=== PATIENT | female | born 1975 | race Caucasian/White ===

== ENCOUNTER → 2016-10-03 | Outpatient (CLI) | payer OTHER ==
[2016-08-08 14:17] VITALS: BP 132/68
[~2016-10-03] MED LIST: ALBU2.5V13 NEB; AMOX1TAB61 PO; ATOR20TA58 PO; Aspirin PO; BUDE10.2 IH; CYCL10TA2 PO; DIAZ5TAB PO; DILT120C97 PO; DILT180C2 PO; ESCI5TAB8 PO; FERR325T31 PO; FEXO180T5 PO; GABA800T2 PO; HYDR-971 PO; INSU100C4 SQ; INSU100V8 SQ; LIRA0.6P2 SQ; LISI-334 PO; LISI-338 PO; LISI10TA2 PO; NYST15CR TP; OMEP40CA5 PO; PROM25TA10 PO; SIMV40TA3 PO; ZOLP5TAB PO
[2016-10-03 14:50] LABS: BASO # 0.1 x10^3/uL (0.0-0.2); BASO % 1 % (0-3); EOS % 0 % (0-3); HEMATOCRIT 40.4 % (36.0-47.0); HEMOGLOBIN 12.6 g/dL (12.0-15.5); LYMPH # 2.1 x10^3/uL (1.0-4.8); LYMPH % 16 % (24-48); MEAN CORPUSCULAR HEMOGLOBIN 24 pg (25-35); MEAN CORPUSCULAR HGB CONC 31 g/dL (31-37); MEAN CORPUSCULAR VOLUME 78 fL (79-100); MONO % 4 % (0-9); NEUT % 79 % (31-73); PLATELET COUNT 317 x10^3/uL (140-400); RED BLOOD COUNT 5.17 x10^6/uL (3.50-5.40); RED CELL DISTRIBUTION WIDTH 23.4 % (11.5-14.5); WHITE BLOOD COUNT 13.3 x10^3/uL (4.0-11.0)
[2016-10-03 14:59] LABS: ALBUMIN 3.8 g/dL (3.4-5.0); ALBUMIN/GLOBULIN RATIO 0.9 (1.0-1.7); CALCIUM 9.2 mg/dL (8.5-10.1); CREATININE 0.6 mg/dL (0.6-1.0); GFR 109.1; POTASSIUM 3.5 mmol/L (3.5-5.1); TOTAL BILIRUBIN 0.4 mg/dL (0.2-1.0); TOTAL PROTEIN 8.1 g/dL (6.4-8.2)
[2016-10-03 15:13] LABS: PLT ESTIMATE ADEQUATE (ADEQUATE)
[2016-10-03 15:14] LABS: ANISOCYTOSIS MOD; OVALOCYTES OCC
--- NOTE | 2016-10-03 16:54 | RAD ---
Indication chest pain. PA and lateral views of the chest were obtained. Comparison is made to an examination 08/07/2016. There is unchanged cardiomegaly. There is no gross congestive heart failure. A focal infiltrate is not seen. Significant pleural fluid is not present and there is no pneumothorax. IMPRESSION: No acute finding apparent in the chest
[2016-10-03 16:56] LABS: BILIRUBIN,URINE NEGATIVE (NEG); GLUCOSE,URINE NEGATIVE (NEG)
[2016-10-03 16:57] LABS: NITRITE,URINE NEGATIVE (NEG); PROTEIN,URINE 30 mg/dL (NEG-TRACE)
[2016-10-03 16:58] LABS: BACTERIA,URINE MANY /HPF (0-FEW); RBC,URINE 0 /HPF (0-2); SQUAMOUS EPITHELIAL CELL,UR MANY /LPF
== END | disposition home or self-care (01) ==
LOC: SURGPAT 14:06
PROVIDERS: ATTEND Obstetrics & Gynecology
DX: I51.7 Cardiomegaly (principal)
CPT/HCPCS: 36415; 71020; 80053; 81001; 85007; 85027; 87086

== ENCOUNTER 2016-10-12 05:59 | Inpatient (IN) | payer OTHER ==
[2016-10-12] VITALS (11 sets, daily range): BP systolic 89–115; BP diastolic 51–63
[~2016-10-12] VITALS: Ht 160 cm; Wt 93.9 kg
[~2016-10-12 05:59] MED LIST changes: -ALBU2.5V13 NEB; +ALBU2.5V14 NEB
[2016-10-12] MEDS ORDERED: CEFOXITIN 1GM IVPB FOR OMNI 50 ML IV PRN (06:00)
[2016-10-12 06:31] LABS: NEG OBC UR NEG; POS OBC UR POS
[2016-10-12] MEDS ORDERED: LIDOCAINE 1% 1 ML SYRINGE. ID PRN (07:00)
[2016-10-12] MEDS ORDERED: PROCHLORPERAZINE 10 MG/2 ML VIAL. IV PRN (07:00)
[2016-10-12] MEDS ORDERED: FENTANYL PF 100 MCG/2 ML VIAL. IV PRN (07:00)
[2016-10-12] MEDS ORDERED: IV RINGERS,LACTATED 1000ML 1,000 ML IV SCH (07:00)
[2016-10-12] MEDS ORDERED: DEXAMETHASONE SOD PHOS 20 MG/5 ML VIAL. ONE (07:02)
[2016-10-12] MEDS ORDERED: PROPOFOL 20 ML IV ONE (07:02)
[2016-10-12] MEDS ORDERED: FAMOTIDINE 20 MG/2 ML VIAL ONE (07:02)
[2016-10-12] MEDS ORDERED: ONDANSETRON PF 4 MG/2 ML VIAL. ONE (07:02)
[2016-10-12] MEDS ORDERED: LIDOCAINE 2% 100 MG/5 ML DISP.SYRIN. ONE (07:02)
[2016-10-12] MEDS ORDERED: ROCURONIUM 50 MG/5 ML VIAL. ONE ×2 (07:03)
[2016-10-12] MEDS ORDERED: FENTANYL PF 100 MCG/2 ML VIAL. ONE ×2 (07:03→08:21)
[2016-10-12] MEDS ORDERED: BUPIVACAINE-EPI 0.25%-1:200000 50 ML VIAL. ONE (07:07)
[2016-10-12] MEDS ORDERED: METHYLENE BLUE 1% 1 ML VIAL. ONE (07:07)
[2016-10-12] MEDS ORDERED: ACETAMINOPHEN INTRAVENOUS 100 ML IV ONE (07:07)
[2016-10-12] MEDS ORDERED: ESTROGENS, CONJ VAGINAL CREAM 30GM TUBE. ONE (07:08)
[2016-10-12] MEDS ORDERED: PHENYLEPHRINE in 0.9% NACL PF 1 MG/10 ML DISP.SYRIN. IV ONE ×2 (07:54→08:58)
[2016-10-12] MEDS ORDERED: SEVOFLURANE > 120 MINUTES. IH ONE (08:10)
[2016-10-12] MEDS ORDERED: VECURONIUM BOLUS 10 MG VIAL. IV ONE (09:04)
[2016-10-12] MEDS ORDERED: 0.9 % SODIUM CHLORIDE 50 ML VIAL. IJ ONE (09:05)
[2016-10-12] MEDS ORDERED: MORPHINE SULFATE 10 MG/ML VIAL. ONE (09:08)
[2016-10-12] MEDS ORDERED: ALBUMIN HUMAN 5% 500 ML IV ONE (09:47)
[2016-10-12] MEDS ORDERED: NEOSTIGMINE METHYLSULFATE 5 MG/5 ML SYRINGE. ONE (10:36)
[2016-10-12] MEDS ORDERED: GLYCOPYRROLATE 1 MG/5 ML VIAL. ONE (10:36)
--- NOTE | 2016-10-12 11:10 | PDOC ---
BRIEF OPERATIVE NOTE Date: Oct 12, 2016 Pre-Op Diagnosis menorrhagia, dysmenorrhea, fibroids Post-Op Diagnosis same with severe pelvic adhesive disease Procedure Performed attempted LAVH/BSO, eventually convered to YESY/BSO and extensive adhesiolysis ( at least 90 min) Surgeon Dr. Karol varner Train Inspector Dr. Analilia Mars Anesthesiologist Dr. Villanueva Anesthesia Type: General Blood Loss 400cc IV Fluid 2L crystalloid, 500cc albumin Urine Output 380cc clear via crowley catheter Specimens Obtained cervix, uterus, bilateral tubes and ovaries Findings upon entry umbilical port inside omentum, entire anterior uterine wall and bladder adhesed firmly to anterior abdominal wall, normal bilateral tubes and ovaries Complications none Additional Remarks [id number] KAROL VARNER MD Oct 12, 2016 11:10
[2016-10-12] MEDS ORDERED: NON FORMULARY ITEM (Albuterol Sulfate (Albuterol Sulfate Conc Neb Soln) 2.5 MG) NEB PRN (11:15)
[2016-10-12] MEDS ORDERED: CALCIUM CARBONATE 500 MG TAB.CHEW PO PRN (11:15)
[2016-10-12] MEDS ORDERED: ONDANSETRON PF 4 MG/2 ML VIAL. IV PRN (11:15)
[2016-10-12] MEDS ORDERED: LACTULOSE 20 GM/30 ML SOLUTION. PO PRN (11:15)
[2016-10-12] MEDS ORDERED: MAGNESIUM HYDROXIDE 2,400 MG/30 ML ORAL.SUSP. PO PRN (11:15)
[2016-10-12] MEDS ORDERED: DIPHENHYDRAMINE HCL 25 MG CAPSULE PO PRN (11:15)
[2016-10-12] MEDS ORDERED: MAG HYDROX/ALUMINUM HYDROX/SMC 30 ML ORAL.SUSP PO PRN (11:15)
[2016-10-12] MEDS ORDERED: MORPHINE SULFATE 2 MG/ML DISP.SYRIN. IV PRN (11:15)
[2016-10-12] MEDS ORDERED: ZOLPIDEM 5 MG TABLET. PO PRN ×2 (11:15)
[2016-10-12] MEDS ORDERED: NALOXONE 0.4 MG/ML VIAL. IV PRN (11:15)
[2016-10-12] MEDS ORDERED: DIPHENHYDRAMINE 50 MG/ML VIAL IV PRN (11:15)
[2016-10-12] MEDS ORDERED: HYDROCODONE/APAP 5/325MG TABLET. PO PRN (11:15)
[2016-10-12] MEDS ORDERED: 0.9 % SODIUM CHLORIDE 10 ML DISP.SYRIN. IV PRN (11:15)
[2016-10-12] MEDS ORDERED: INSULIN ASPART 100 UNIT/ML 10ML VIAL. SQ ONE ×4 (11:22→12:45)
[2016-10-12] MEDS: FENTANYL PF 100 MCG/2 ML VIAL. IV PRN ×3 (11:33→12:48)
[2016-10-12] MEDS ORDERED: INSULIN ASPART 300 UNITS/3 ML INSULN.PEN SQ SCH ×2 (11:45→14:45)
[2016-10-12] MEDS ORDERED: INSULIN ASPART 300 UNITS/3 ML INSULN.PEN SQ ONE (11:45)
[2016-10-12] MEDS ORDERED: ALBUTEROL SULFATE 2.5 MG/3 ML NEBU. NEB PRN (11:45)
[2016-10-12] MEDS: HYDROMORPHONE 2 MG/ML VIAL. IV PRN ×4 (11:57→12:37)
[2016-10-12] MEDS: MORPHINE SULFATE 2 MG/ML DISP.SYRIN. IV PRN ×2 (12:02→12:15)
[2016-10-12] MEDS ORDERED: DEXTROSE 50% 25 GM / 50ML DISP.SYRIN. IV PRN (14:45)
[2016-10-12] MEDS: BUDESONIDE 0.5 MG/2 ML NEBU NEB SCH (14:50)
[2016-10-12] MEDS: ALBUTEROL SULFATE 2.5 MG/3 ML NEBU. NEB SCH ×2 (14:51→22:06)
--- NOTE | 2016-10-12 14:59 | OP ---
DATE OF SURGERY: 10/12/2016 PREOPERATIVE DIAGNOSES: Menorrhagia, dysmenorrhea, fibroids. POSTOPERATIVE DIAGNOSES: Menorrhagia, dysmenorrhea, fibroids with severe pelvic adhesive disease. PROCEDURE PERFORMED: An attempted laparoscopic-assisted vaginal hysterectomy with BSO that was eventually converted to a total abdominal hysterectomy with SBO and extensive adhesiolysis. Probably at least an hour and half, 90 minutes worth of adhesiolysis. The entire hyst took over two and half hours. SURGEONS: Matt Varner MD and Analilia Mars MD ANESTHESIOLOGIST: Lencho Sheikh MD ANESTHESIA: General. ESTIMATED BLOOD LOSS: 400 mL. INTRAVENOUS FLUIDS: She was given 2 liters of crystalloid and then 500 mL of albumin. URINE OUTPUT: 380 mL clear via Russell catheter. SPECIMEN OBTAINED: Cervix, uterus, bilateral tubes and ovaries. FINDINGS: Upon entry, could tell the umbilical port was in omentum, was able to get around it and put another ports to see that it was clear of any bowel and the anterior uterus and bladder were stuck to the anterior abdominal wall. The upper quadrants were clear. The right lower, left quadrants were clear. All the adhesions were midline with umbilical all the way up to the umbilicus. They were omental layer and then the uterus and bladder firmly adhesed to the anterior abdominal wall. Otherwise, she had an 8-10 cm uterus, mildly enlarged, that wanted to hang retroverted, but it was absolutely stuck to the anterior abdominal wall and dipping into the pelvis, but she had normal bilateral tubes and ovaries. There were no complications. DESCRIPTION OF PROCEDURE: This patient was taken to the operating room where general anesthesia was placed. The patient was placed in dorsal lithotomy position in [facility]. The patient's abdomen and vagina were prepped and draped in the normal sterile fashion. A bivalve speculum was placed in the patient's vagina. A single tooth tenaculum was used to grasp the anterior lip of the cervix. Approximately 10 mL of 0.25% Marcaine with epinephrine was used to circumferentially inject around the cervix. This was for both hemodissection and hemostatic purposes later. The [employer] uterine manipulator was placed through the endocervical os, locked on the single tooth tenaculum and the bivalve speculum was then removed. Top gloves were discarded and changed. Attention was turned to the abdomen. After prepping and draping her, the catheter had been inserted. We did all of that. Now gloves were discarded and changed. Attention was turned to the abdomen where a small infraumbilical skin incision had been made. Her only previous surgery had been a section with a low Pfannenstiel skin incision. So I went inside the umbilical fold, made a small incision, used the curved Esperanza to dissect through the subcuticular layer to the fascia. The 5-mm Visiport was used to directly enter the abdominal cavity. Opening patient pressure was 5 mmHg and direct abdominal placement was confirmed via the laparoscope. However, I could tell that there was omentum around me. I was able to get around this and see the right and left lower quadrant ports and was able to get 5-mm Ethicon disposable atraumatic port in both sides and then put the port out there to look at the midline and look for the port. It did appear to be all omental adhesions, but there was pretty done omental adhesions in the midline around the umbilicus encasing the entire port and then going all the way down. I was able to take them down because we were in both sides and seeing it. We actually put a left upper quadrant port in and it was clear and moved the camera up there, so the camera was not in adhesions, where we could get above the adhesions and take down the omental adhesions from the umbilicus down. However, once we did reach the uterus and find the uterus, it was then densely adhesed to the anterior abdominal wall, even though it was retroverted and dipping posteriorly was tagged up and falling backwards into the posterior cul-de-sac. There was no good plane at all, I mean we could not get around to the bladder. We did go ahead and start because we could see the round ligament, so I started on the left side, cauterizing and cutting once we got down to the uterus and had taken down the omental adhesions. We started on the left side, cauterizing and cutting the round ligament, going down and then elevating the left tube and ovary, finding the ureter coursing very low, staying high on the IP ligament with the LigaSure Advance, cauterizing and cutting it, getting down past the round ligament and then getting down to the level of the uterines. I still could not get the bladder flap created anteriorly, but posteriorly, you could see the cervix and you could see it clear and we stayed very posterior and we were able to skeletonize and obtain the uterines on the left. We did exactly the same thing on the right side, first obtaining the round ligaments, cauterizing and cutting with the LigaSure Advance, again, not being able to go anteriorly very well, then elevating the right tube and ovary, again finding the ureter coursing low, staying high on the IP ligament, cauterizing and cutting it as well, taking the tubes and ovaries per patient's request and again going posteriorly and skeletonized and finding the uterines and obtaining those. The uterus did start blanching and the uterus did start freeing up as we obtained the blood supply. We did try extensively to try to create this bladder flap, though we could not peel it off. It was very thick, we could not get a plane at all. So we decided at this point, once we went posteriorly and tried to stay and had the uterus through the cardinal and broads down to the uterosacrals, we were able to go posterior a little bit and see that area staying away from the bladder, but posterior. Once we did that and the uterus was free posteriorly and it blanched and we have the blood supply from above, we decided to try to go vaginally to see if we could get in and may be push it off that way. However, with all the redundant vagina and a very high cervix and the uterus was not mobile, unable to be pulled down, it was very, very, very difficult to even see or do this, so it was just decided to go ahead and convert to an open abdominal procedure. So she was covered and laid supine. She was taken out of her stirrups, a safety blet was put on, new drapes were placed on the bottom part, all gloves were discarded and changed and the instruments tray was recounted for the open abdominal tray, so this took a little bit and then a Pfannenstiel skin incision was made with the scalpel over the previous scars. Starting abdominally now, a Pfannenstiel skin incision was made over the previous existing scar. Bovie cautery was used in the subcutaneous for hemostasis. The fascia was scored in the midline and extended sharply and bluntly bilaterally with the curved Valdovinos scissors. Evelin clamps x 2 were placed on the superior fascial edge and the rectus muscles were dissected from the fascia sharply and bluntly. This was done inferiorly as well. Very thick adhesions inferiorly down towards the pubic bone as well. We were in anteriorly, we stretched, placed in slight Trendelenburg and packed 3 moist laps and a blue moist sponge. We did place the O'Hever-O'Valiente retractor in, within upper blade and side blade, we did not place the lower blade. The uterus was able to be grasped, then pulled out, again most of it was free, most of it had been done laparoscopically and Pean's were placed at the cornua both bilaterally and pulled up. We were able to take a couple more bite posteriorly and get down to the uterosacrals and tagged these with 0 Vicryl. We put curved Hugo clamps x 2, cut with Valdovinos scissors and suture ligated x 2. We did this on both sides for a couple bites until we were in. We could feel a plane and you could see the cervix completely delineated even from posterior around the anterior. The bladder was not stuck to the cervix. There were just thick, likely omental adhesions, but we wanted to be sure that the bladder was not in there as there was so much adipose tissue, it was difficult to see the bladder and feel the Russell bulb at this point. So we went around the anterior cervix that we could see and kind of dissected up bluntly, like we would if we were pushing from the bottom and we were able to get a plane there as well, but we were able to get in and we used the Vishal's to amputate the scissors and long Evelin's were placed on the anterior and posterior lips of the vaginal mucosa. Once it was out, we were able to peel down the adhesions and cut them down under direct visualization and amputate the rest of the cervix, the uterus, bilateral tubes and ovary and passed it off for permanent pathology, but it was stuck very, very densely to the fat peritoneum from the anterior abdominal wall still there, so we were able to get this off under direct visualization and making sure that the bladder was clear. The urine stayed clear the entire time. There was no seepage of urine. There was no blood in the urine. We just wanted to be very careful with these dense adhesions. A series of 0 Vicryl stitches were placed interrupted, first getting the corners and coming out to the uterosacral ligaments, tagging those and then a series of interrupted [id number], 3 or 4 stitches of 0 Vicryl were placed to close the vaginal cuff. Once this was done, these were left tagged. Irrigation was done to make sure it was clear. The posterior peritoneum was pulled up and tagged to the vaginal cuff, it looked good. They did have to seal out, so we did go ahead and spray it over the cuff since it was out for the laparoscopic hyst already anyway, after irrigating and it looked good. All the sutures were trimmed. The O'Hever-O'Valiente retractor was removed and all 3 moist laps and the blue sponge were removed. All counts were correct x 2 by OR personnel prior to closing. We did look at the cuff again, it was hemostatic. So at this point, the fascia was closed from left to midline, right to midline and tied together with #0 Vicryl on a CT1. It was used to close the fascia. The rectus muscles were clear before doing all this, everything was hemostatic, everything looked good. Irrigation again had been done intraabdominally before spraying Tisseel and it looked good and a second look even after removing everything and looking at the cuff, and trimming looked good, so the rectus muscles were good, that is when we sewed the fascia from left to the midline, right to midline and tied together. Then we irrigated the subcutaneous again. Bovie cautery was used on a few pieces here that just needed a little bit of attach near the skin. Once this was done, 2-0 Vicryl was used to close the Arsalan fascia in the subcuticular layer and then the skin was closed using concepcion. All sponge, lap and needle counts were now again correct, even count on the bottom vaginal part again, x 2 by OR personnel and the patient was awakened from anesthesia and taken to recovery room in stable condition. They were awakening her as I left. MATT VARNER MD DR: TIFFANIE/dylan JOB#: [id number] / [id number]
[2016-10-12] MEDS: INSULIN ASPART 300 UNITS/3 ML INSULN.PEN SQ PRN ×3 (15:18→22:38)
[2016-10-12] MEDS: GABAPENTIN 400 MG CAPSULE. PO SCH ×2 (15:20→21:10)
[2016-10-12] MEDS: OXYCODONE/APAP 5/325 TABLET. PO PRN ×2 (15:30→19:51)
[2016-10-12] MEDS: INSULIN ASPART 300 UNITS/3 ML INSULN.PEN SQ SCH (17:36)
[2016-10-12] MEDS ORDERED: NON FORMULARY ITEM (Budesonide/Formoterol Fumarate (Symbicort 160-4.5 Mcg Inhaler) 2 PUFF) IH SCH (21:00)
[2016-10-12] MEDS: ATORVASTATIN CALCIUM 10 MG TABLET. PO SCH (21:07)
[2016-10-12] MEDS: INSULIN DETEMIR 300 UNITS/3 ML INSULN.PEN. SQ SCH (21:12)
[2016-10-13 03:03] VITALS: BP 95/61
[2016-10-13] MEDS: OXYCODONE/APAP 5/325 TABLET. PO PRN ×4 (05:21→21:32)
[2016-10-13 06:37] LABS: CALCIUM 8.1 mg/dL (8.5-10.1); CREATININE 0.7 mg/dL (0.6-1.0); GFR 91.3; POTASSIUM 4.3 mmol/L (3.5-5.1)
[2016-10-13] MEDS: BUDESONIDE 0.5 MG/2 ML NEBU NEB SCH ×2 (06:44→20:11)
[2016-10-13] MEDS: ALBUTEROL SULFATE 2.5 MG/3 ML NEBU. NEB SCH ×4 (06:44→20:11)
[2016-10-13 07:09] VITALS: BP_SYST 110
[2016-10-13 07:45] VITALS: BP 99/42
[2016-10-13] MEDS ORDERED: FERROUS SULFATE 325 MG TABLET PO SCH (08:00)
[2016-10-13] MEDS: SIMETHICONE 80 MG TAB.CHEW PO PRN ×3 (08:07→21:30)
[2016-10-13] MEDS: GABAPENTIN 400 MG CAPSULE. PO SCH ×3 (08:08→21:24)
[2016-10-13] MEDS: PANTOPRAZOLE 40 MG TABLET. PO SCH (08:08)
[2016-10-13] MEDS: ESCITALOPRAM 5 MG TABLET. PO SCH (08:09)
[2016-10-13] MEDS: DIAZEPAM 5 MG TABLET PO SCH (08:09)
[2016-10-13] MEDS: DILTIAZEM HCL 120 MG CAP.ER.24H PO SCH (08:09)
[2016-10-13] MEDS: INSULIN ASPART 300 UNITS/3 ML INSULN.PEN SQ SCH ×3 (08:15→16:30)
[2016-10-13] MEDS: LIRAGLUTIDE SQ SCH (08:16)
[2016-10-13] MEDS: INSULIN ASPART 300 UNITS/3 ML INSULN.PEN SQ PRN ×2 (08:16→12:53)
--- NOTE | 2016-10-13 08:48 | PDOC ---
SURGICAL PROGRESS NOTE Subjective Doing well without complaints. No n/v, tolerating regular diet. Ambulating well, up to chair eating right now. Just had catheter pulled this am so not voided yet without catheter. No fever/chills. No dizziness, lightheadedness or any other complaints. No flatus yet. Pain well controlled Vital Signs Vital Signs Date Time Temp Pulse Resp B/P Pulse Ox O2 Delivery O2 Flow Rate FiO2 10/13/16 08:09 114 99/42 10/13/16 07:09 98.4 18 97 Room Air 98.4 10/12/16 23:54 2.0 I&O Intake and Output 10/13/16 07:00 Intake Total 4028 ml Output Total 700 ml Balance 3328 ml Intake IV Total 4028 ml Output Urine Total 700 ml PATIENT HAS A ROSALES: No General: Alert, Oriented X3, Cooperative, No acute distress HEENT: Atraumatic Heart: Regular rate Abdomen: Soft, No tenderness, Other (all port sites c/d/i; incision c/d/i with concepcion and bandage removed and was clean and dry) Extremities: No clubbing, No cyanosis, No edema, No tenderness/swelling Skin: No rashes, No breakdown Neuro: Normal speech Psych/Mental Status: Mental status NL, Mood NL Labs Laboratory Tests Test 10/12/16 06:10 10/12/16 06:48 10/12/16 11:16 10/12/16 12:21 Urine Test Negative (NEG) Glucose (Fingerstick) 282mg/dL (70-99) 315mg/dL (70-99) 322mg/dL (70-99) Test 10/12/16 13:52 10/12/16 17:14 10/12/16 22:27 10/13/16 05:30 Glucose (Fingerstick) 282mg/dL (70-99) 251mg/dL (70-99) 288mg/dL (70-99) Hematocrit 27.1% (36.0-47.0) Sodium Level 140mmol/L (136-145) Potassium Level 4.3mmol/L (3.5-5.1) Chloride Level 104mmol/L (98-107) Carbon Dioxide Level 28mmol/L (21-32) Anion Gap 8 (6-14) Blood Urea Nitrogen 7mg/dL (7-20) Creatinine 0.7mg/dL (0.6-1.0) Estimated GFR (Cockcroft-Gault) 91.3 Glucose Level 269mg/dL (70-99) Calcium Level 8.1mg/dL (8.5-10.1) Laboratory Tests Test 10/12/16 11:16 10/12/16 12:21 10/12/16 13:52 10/12/16 17:14 Glucose (Fingerstick) 315mg/dL (70-99) 322mg/dL (70-99) 282mg/dL (70-99) 251mg/dL (70-99) Test 10/12/16 22:27 10/13/16 05:30 Glucose (Fingerstick) 288mg/dL (70-99) Hematocrit 27.1% (36.0-47.0) Sodium Level 140mmol/L (136-145) Potassium Level 4.3mmol/L (3.5-5.1) Chloride Level 104mmol/L (98-107) Carbon Dioxide Level 28mmol/L (21-32) Anion Gap 8 (6-14) Blood Urea Nitrogen 7mg/dL (7-20) Creatinine 0.7mg/dL (0.6-1.0) Estimated GFR (Cockcroft-Gault) 91.3 Glucose Level 269mg/dL (70-99) Calcium Level 8.1mg/dL (8.5-10.1) I have reviewed the following labs, vitals, nursing Cardiovascular: HTN Pulmonary: Asthma Heme/Onc: Iron deficiency Anemia Psych: No pertinent hx Infectious disease: No pertinent hx ENT: No pertinent hx Renal/: No pertinent hx Endocrine: Diabetes Problem List Problems Medical Problems: (1) Diabetes Status: Acute (2) Dysmenorrhea Status: Acute (3) Menorrhagia Status: Acute (4) Pelvic adhesive disease Status: Acute (5) Uterine fibroid Status: Acute Assessment/Plan POD#1 s/p attempted LAVH/BSO with extensive pelvic adhesive disease and conversion to YESY Routine po care anemia- start bid iron will observe today, ambulate at least TID with assistance, may shower repeat CBC in am to ensure stable Problems: MATT VARNER MD Oct 13, 2016 08:48
[2016-10-13 13:55] VITALS: BP 97/42
[2016-10-13 16:37] VITALS: BP 100/54
[2016-10-13] MEDS: INSULIN DETEMIR 300 UNITS/3 ML INSULN.PEN. SQ SCH (21:00)
[2016-10-13 21:15] VITALS: BP 121/67
[2016-10-13] MEDS: ATORVASTATIN CALCIUM 10 MG TABLET. PO SCH (21:24)
[2016-10-14 02:03] VITALS: BP 113/67
[2016-10-14 05:24] VITALS: BP 124/72
[2016-10-14 05:36] LABS: HEMOGLOBIN 8.1 g/dL (12.0-15.5); RED BLOOD COUNT 3.22 x10^6/uL (3.50-5.40); RED CELL DISTRIBUTION WIDTH 20.1 % (11.5-14.5); WHITE BLOOD COUNT 11.8 x10^3/uL (4.0-11.0)
[2016-10-14] MEDS: ALBUTEROL SULFATE 2.5 MG/3 ML NEBU. NEB SCH ×4 (07:13→20:31)
[2016-10-14] MEDS: BUDESONIDE 0.5 MG/2 ML NEBU NEB SCH ×2 (07:17→20:31)
[2016-10-14 08:30] VITALS: BP 126/70
[2016-10-14] MEDS: PANTOPRAZOLE 40 MG TABLET. PO SCH (08:43)
[2016-10-14] MEDS: GABAPENTIN 400 MG CAPSULE. PO SCH ×3 (08:43→21:10)
[2016-10-14] MEDS: FERROUS SULFATE 325 MG TABLET PO SCH (08:44)
[2016-10-14] MEDS: OXYCODONE/APAP 5/325 TABLET. PO PRN ×3 (08:44→17:22)
[2016-10-14] MEDS: DIAZEPAM 5 MG TABLET PO SCH (08:44)
[2016-10-14] MEDS: ESCITALOPRAM 5 MG TABLET. PO SCH (08:44)
[2016-10-14] MEDS: DILTIAZEM HCL 120 MG CAP.ER.24H PO SCH (08:44)
[2016-10-14] MEDS: LIRAGLUTIDE SQ SCH (08:47)
[2016-10-14] MEDS: INSULIN ASPART 300 UNITS/3 ML INSULN.PEN SQ SCH ×3 (08:58→17:28)
--- NOTE | 2016-10-14 10:11 | PDOC ---
SURGICAL PROGRESS NOTE Subjective Doing better. Voiding without catheter. +flatus tolerating a regular diet Vital Signs Vital Signs Date Time Temp Pulse Resp B/P Pulse Ox O2 Delivery O2 Flow Rate FiO2 10/14/16 08:44 16 Room Air 10/14/16 07:18 99 2.0 10/14/16 05:24 98.2 114 124/72 98.2 PATIENT HAS A ROSALES: No General: Alert, Oriented X3, Cooperative, No acute distress HEENT: Atraumatic Heart: Regular rate Abdomen: Soft, No tenderness, No masses, Other (all port sites c/d/i and incision c/d/i with concepcion) Extremities: No clubbing, No cyanosis, No edema, No tenderness/swelling Skin: No rashes, No breakdown Neuro: Normal speech Labs Laboratory Tests Test 10/12/16 11:16 10/12/16 12:21 10/12/16 13:52 10/12/16 17:14 Glucose (Fingerstick) 315mg/dL (70-99) 322mg/dL (70-99) 282mg/dL (70-99) 251mg/dL (70-99) Test 10/12/16 22:27 10/13/16 05:30 10/13/16 08:06 10/13/16 11:58 Glucose (Fingerstick) 288mg/dL (70-99) 258mg/dL (70-99) 136mg/dL (70-99) Hematocrit 27.1% (36.0-47.0) Sodium Level 140mmol/L (136-145) Potassium Level 4.3mmol/L (3.5-5.1) Chloride Level 104mmol/L (98-107) Carbon Dioxide Level 28mmol/L (21-32) Anion Gap 8 (6-14) Blood Urea Nitrogen 7mg/dL (7-20) Creatinine 0.7mg/dL (0.6-1.0) Estimated GFR (Cockcroft-Gault) 91.3 Glucose Level 269mg/dL (70-99) Calcium Level 8.1mg/dL (8.5-10.1) Test 10/13/16 16:30 10/13/16 18:38 10/13/16 21:22 10/14/16 05:25 Glucose (Fingerstick) 79mg/dL (70-99) 95mg/dL (70-99) 106mg/dL (70-99) White Blood Count 11.8x10^3/uL (4.0-11.0) Red Blood Count 3.22x10^6/uL (3.50-5.40) Hemoglobin 8.1g/dL (12.0-15.5) Hematocrit 26.0% (36.0-47.0) Mean Corpuscular Volume 81fL (79-100) Mean Corpuscular Hemoglobin 25pg (25-35) Mean Corpuscular Hemoglobin Concent 31g/dL (31-37) Red Cell Distribution Width 20.1% (11.5-14.5) Platelet Count 274x10^3/uL (140-400) Test 10/14/16 05:57 Glucose (Fingerstick) 138mg/dL (70-99) Laboratory Tests Test 10/13/16 11:58 10/13/16 16:30 10/13/16 18:38 10/13/16 21:22 Glucose (Fingerstick) 136mg/dL (70-99) 79mg/dL (70-99) 95mg/dL (70-99) 106mg/dL (70-99) Test 10/14/16 05:25 10/14/16 05:57 White Blood Count 11.8x10^3/uL (4.0-11.0) Red Blood Count 3.22x10^6/uL (3.50-5.40) Hemoglobin 8.1g/dL (12.0-15.5) Hematocrit 26.0% (36.0-47.0) Mean Corpuscular Volume 81fL (79-100) Mean Corpuscular Hemoglobin 25pg (25-35) Mean Corpuscular Hemoglobin Concent 31g/dL (31-37) Red Cell Distribution Width 20.1% (11.5-14.5) Platelet Count 274x10^3/uL (140-400) Glucose (Fingerstick) 138mg/dL (70-99) I have reviewed the following labs, vitals, nursing Cardiovascular: HTN Pulmonary: Asthma Heme/Onc: Iron deficiency Anemia Endocrine: Diabetes Problem List Problems Medical Problems: (1) Diabetes Status: Acute (2) Dysmenorrhea Status: Acute (3) Menorrhagia Status: Acute (4) Pelvic adhesive disease Status: Acute (5) Uterine fibroid Status: Acute Assessment/Plan POD#2 s/p attempted LAVH/BSO and converted to YESY/BSO with adhesiolysis Routine po care anemia on bid iron pt slow to move and sore, so would like to stay one more day, shower here and have assistance with ambulation Diabetes with sugars all over the place-finally down into the 100's did drop into 70's yesterday afternoon and was symptomatic and held evening dose HTN well controlled Problems: MATT VARNER MD Oct 14, 2016 10:11
[2016-10-14 12:30] VITALS: BP 134/69
[2016-10-14] MEDS: SIMETHICONE 80 MG TAB.CHEW PO PRN (12:43)
[2016-10-14] MEDS: ATORVASTATIN CALCIUM 10 MG TABLET. PO SCH (21:10)
[2016-10-14] MEDS: INSULIN DETEMIR 300 UNITS/3 ML INSULN.PEN. SQ SCH (21:14)
[2016-10-14 23:16] VITALS: BP 146/81
[2016-10-15] MEDS: OXYCODONE/APAP 5/325 TABLET. PO PRN ×2 (05:18→18:01)
[2016-10-15 05:30] VITALS: BP 118/81
[2016-10-15 07:50] VITALS: BP 111/69
[2016-10-15] MEDS: SIMETHICONE 80 MG TAB.CHEW PO PRN (08:15)
[2016-10-15] MEDS: DIAZEPAM 5 MG TABLET PO SCH (08:16)
[2016-10-15] MEDS: PANTOPRAZOLE 40 MG TABLET. PO SCH (08:16)
[2016-10-15] MEDS: ESCITALOPRAM 5 MG TABLET. PO SCH (08:16)
[2016-10-15] MEDS: DILTIAZEM HCL 120 MG CAP.ER.24H PO SCH (08:17)
[2016-10-15] MEDS: GABAPENTIN 400 MG CAPSULE. PO SCH ×3 (08:17→21:40)
[2016-10-15] MEDS: FERROUS SULFATE 325 MG TABLET PO SCH ×2 (08:17→18:02)
[2016-10-15] MEDS: LIRAGLUTIDE SQ SCH (08:18)
[2016-10-15] MEDS: INSULIN ASPART 300 UNITS/3 ML INSULN.PEN SQ SCH ×3 (08:24→16:30)
[2016-10-15] MEDS: ALBUTEROL SULFATE 2.5 MG/3 ML NEBU. NEB SCH ×5 (08:34→22:30)
[2016-10-15] MEDS: BUDESONIDE 0.5 MG/2 ML NEBU NEB SCH ×3 (08:34→22:30)
[2016-10-15] MEDS ORDERED: ONDANSETRON ODT 4 MG TAB.RAPDIS PO PRN (12:30)
[2016-10-15] MEDS ORDERED: BISACODYL 10 MG SUPP.RECT PR PRN (12:30)
--- NOTE | 2016-10-15 12:43 | PDOC ---
SURGICAL PROGRESS NOTE Subjective pt feeling nauseated today. Is voiding well without catheter, ambulating well, +flatus, but feels like needs to have a BM and has not yet. Going to take a zofran and discussed with pt she would like to try a suppository, if nausea clears and can have a BM still wants to go home later today if ok mild pain but nothing bad, scant vag bleeding, no fevers and rested well last night; sugars much better too Vital Signs Vital Signs Date Time Temp Pulse Resp B/P Pulse Ox O2 Delivery O2 Flow Rate FiO2 10/15/16 08:35 Room Air 10/15/16 08:17 117 111/69 10/15/16 07:50 98.4 14 96 98.4 10/14/16 07:18 2.0 I&O Intake and Output 10/15/16 07:00 Intake Total 500 ml Balance 500 ml Intake Oral 500 ml # Voids 1 PATIENT HAS A ROSALES: No General: Alert, Oriented X3, Cooperative, mild distress HEENT: Atraumatic Heart: Regular rate Abdomen: Soft, No tenderness, Other (all port sites and incision c/d/i) Extremities: No clubbing, No cyanosis, No edema, No tenderness/swelling Skin: No rashes, No breakdown Neuro: Normal speech Psych/Mental Status: Mental status NL, Mood NL Labs Laboratory Tests Test 10/13/16 16:30 10/13/16 18:38 10/13/16 21:22 10/14/16 05:25 Glucose (Fingerstick) 79mg/dL (70-99) 95mg/dL (70-99) 106mg/dL (70-99) White Blood Count 11.8x10^3/uL (4.0-11.0) Red Blood Count 3.22x10^6/uL (3.50-5.40) Hemoglobin 8.1g/dL (12.0-15.5) Hematocrit 26.0% (36.0-47.0) Mean Corpuscular Volume 81fL (79-100) Mean Corpuscular Hemoglobin 25pg (25-35) Mean Corpuscular Hemoglobin Concent 31g/dL (31-37) Red Cell Distribution Width 20.1% (11.5-14.5) Platelet Count 274x10^3/uL (140-400) Test 10/14/16 05:57 10/14/16 12:20 10/14/16 17:12 10/15/16 07:56 Glucose (Fingerstick) 138mg/dL (70-99) 110mg/dL (70-99) 111mg/dL (70-99) 110mg/dL (70-99) Laboratory Tests Test 10/14/16 17:12 10/15/16 07:56 Glucose (Fingerstick) 111mg/dL (70-99) 110mg/dL (70-99) Cardiovascular: HTN Pulmonary: Asthma GI: Constipation Heme/Onc: Iron deficiency Anemia Psych: No pertinent hx Infectious disease: No pertinent hx Endocrine: Diabetes Problem List Problems Medical Problems: (1) Diabetes Status: Acute (2) Dysmenorrhea Status: Acute (3) Menorrhagia Status: Acute (4) Pelvic adhesive disease Status: Acute (5) Uterine fibroid Status: Acute Assessment/Plan POD#3 s/p LAVH/BSO convered to YESY/BSO with adhesiolysis Anemia- on iron bid Nauseated- giving zofran constipation- ordering ducolax suppository Might go home today if feels better AFVSS sugars and blood pressure well controlled if goes home NO driving while on narcotic pain pills keep scheduled follow up in one week in the office call or return sooner for any questions not limited to but including pain unrelieved with pain pills, increased or unexplained vaginal bleeding or T>100.4 Problems: MATT VARNER MD Oct 15, 2016 12:42
--- NOTE | 2016-10-15 12:51 | PDOC3 ---
Discharge Summary Visit Information Date of Admission: Oct 12, 2016 Date of Discharge: Oct 15, 2016 Admitting Diagnosis: menorrhagia, anemia, fibroid, diabetes, HTN, asthma Final Diagnosis Problems Medical Problems: (1) Diabetes Status: Acute (2) Dysmenorrhea Status: Acute (3) Menorrhagia Status: Acute (4) Pelvic adhesive disease Status: Acute (5) Uterine fibroid Status: Acute Brief Hospital Course Allergies Allergies Coded Allergies Type Severity Reaction Last Updated Verified carbidopa Allergy Intermediate 10/12/16 Yes Vital Signs Vital Signs Date Time Temp Pulse Resp B/P Pulse Ox O2 Delivery O2 Flow Rate FiO2 10/15/16 08:35 Room Air 10/15/16 08:17 117 111/69 10/15/16 07:50 98.4 14 96 98.4 10/14/16 07:18 2.0 Lab Results Laboratory Tests Test 10/13/16 16:30 10/13/16 18:38 10/13/16 21:22 10/14/16 05:25 Glucose (Fingerstick) 79mg/dL (70-99) 95mg/dL (70-99) 106mg/dL (70-99) White Blood Count 11.8x10^3/uL (4.0-11.0) Red Blood Count 3.22x10^6/uL (3.50-5.40) Hemoglobin 8.1g/dL (12.0-15.5) Hematocrit 26.0% (36.0-47.0) Mean Corpuscular Volume 81fL (79-100) Mean Corpuscular Hemoglobin 25pg (25-35) Mean Corpuscular Hemoglobin Concent 31g/dL (31-37) Red Cell Distribution Width 20.1% (11.5-14.5) Platelet Count 274x10^3/uL (140-400) Test 10/14/16 05:57 10/14/16 12:20 10/14/16 17:12 10/15/16 07:56 Glucose (Fingerstick) 138mg/dL (70-99) 110mg/dL (70-99) 111mg/dL (70-99) 110mg/dL (70-99) Laboratory Tests Test 10/14/16 17:12 10/15/16 07:56 Glucose (Fingerstick) 111mg/dL (70-99) 110mg/dL (70-99) Brief Hospital Course Ms. Banegas is a 41 old female who presented with fibroid uterus, menorrhagia, anemia and dysmenorrha. Originally she wanted surgery a year ago but hgb A1c was >11 and she had to work on blood sugars to improve, came back with A1c at 8 desiring surgery. By the time of surgery her A1c was 6.6 and sugars much improved. She underwent an attempted LAVH/BSO and adhesiolysis but due to the uterus and bladder adhesed to the anterior abdominal wall from previous c/s was unable to complete safely laparoscopically so was converted to YESY/BSO/ adhesiolysis. She was anemaic postoperatively Sunday and stable sunday. She was just slower to move yesterday and thought she might benefit from one more day here to have help with assistance (sunday sugars were very high, but by sunday they were better) Postoperatively now she had one temp 100.4 on POD#1 and nothing since. in the past 24 hours her Tmax was 99 she has remained AFVSS blood pressures and sugars good. She was eating sunday and sunday, voiding well and passing gas. today on Day 3 she has some nausea and is passing gas but still no BM. Will give some nausea meds and a suppository. If pt feels better still wants to go home later today. Discharge Information Condition at Discharge: Stable Follow Up: Weeks Disposition/Orders: D/C to Home Scheduled ([Aspirin]) 81 MG PO [id number] Budesonide/Formoterol Fumarate (Symbicort 160-4.5 Mcg Inhaler) 2 PUFF IH BID ( Reported) Cyclobenzaprine Hcl (Cyclobenzaprine Hcl) 10 MG PO TID (Reported) Diazepam (Valium) 5 MG PO DAILY (Reported) Diltiazem Hcl (Diltiazem 24HR Cd) 120 MG PO DAILY (Reported) Escitalopram Oxalate (Lexapro) 5 MG PO DAILY (Reported) Ferrous Sulfate (Iron) 325 MG PO DAILY (Reported) Fexofenadine Hcl (Fexofenadine Hcl) 180 MG PO DAILY (Reported) Gabapentin (Gabapentin) 800 MG PO TID (Reported) Hydrocodone/Apap 5-325 ([place] 5-325 Tablet) 1-2 TAB PO Q4-6HRS Insulin Aspart (Novolog) 27 UNIT SQ TIDAC (Reported) Insulin Glargine,Hum.rec.anlog (Lantus) 70 UNIT SQ HS (Reported) Liraglutide (Victoza 3-[place]) 1.8 MG SQ DAILY (Reported) Nystatin (Nystatin) 1 DANIEL TP BID Omeprazole (Omeprazole) 40 MG PO DAILY (Reported) Simvastatin (Simvastatin) 40 MG PO HS (Reported) Scheduled PRN Albuterol Sulfate (Albuterol Sulfate Conc Neb Soln) 2.5 MG NEB Q4HRS PRN PRN SHORTNESS OF BREATH (Reported) Zolpidem Tartrate (Ambien) 5 MG PO PRN QHS PRN PRN INSOMNIA Patient Instructions Patient Instructions POD#3 s/p LAVH/BSO convered to YESY/BSO with adhesiolysis Anemia- on iron bid Nauseated- giving zofran constipation- ordering ducolax suppository Might go home today if feels better AFVSS sugars and blood pressure well controlled if goes home NO driving while on narcotic pain pills keep scheduled follow up in one week in the office call or return sooner for any questions not limited to but including pain unrelieved with pain pills, increased or unexplained vaginal bleeding or T>100.4 MATT VARNER MD Oct 15, 2016 12:51
[2016-10-15 16:58] LABS: BASO # 0.1 x10^3/uL (0.0-0.2); BASO % 1 % (0-3); EOS % 1 % (0-3); HEMATOCRIT 28.1 % (36.0-47.0); LYMPH # 3.1 x10^3/uL (1.0-4.8); LYMPH % 19 % (24-48); MEAN CORPUSCULAR HEMOGLOBIN 25 pg (25-35); MEAN CORPUSCULAR HGB CONC 32 g/dL (31-37); MEAN CORPUSCULAR VOLUME 79 fL (79-100); MONO % 5 % (0-9); NEUT % 75 % (31-73); PLATELET COUNT 363 x10^3/uL (140-400); RED BLOOD COUNT 3.54 x10^6/uL (3.50-5.40); RED CELL DISTRIBUTION WIDTH 18.8 % (11.5-14.5); WHITE BLOOD COUNT 16.3 x10^3/uL (4.0-11.0)
--- NOTE | 2016-10-15 17:02 | RAD ---
EXAM: Abdomen, single view. HISTORY: Pain. COMPARISON: 02/26/2013. FINDINGS: A frontal view of the abdomen is obtained. There is gas and stool within the colon. No abnormally dilated air-filled loop of small bowel seen. There is no transition point to suggest obstruction. There are skin concepcion overlying the pelvis. IMPRESSION: Nonobstructive bowel gas pattern.
[2016-10-15 17:19] LABS: ALBUMIN 3.2 g/dL (3.4-5.0); ALBUMIN/GLOBULIN RATIO 0.8 (1.0-1.7); CALCIUM 8.7 mg/dL (8.5-10.1); CREATININE 0.6 mg/dL (0.6-1.0); GFR 109.1; POTASSIUM 3.5 mmol/L (3.5-5.1); TOTAL BILIRUBIN 0.5 mg/dL (0.2-1.0); TOTAL PROTEIN 7.2 g/dL (6.4-8.2)
[2016-10-15 21:30] VITALS: BP 109/58
[2016-10-15] MEDS: INSULIN DETEMIR 300 UNITS/3 ML INSULN.PEN. SQ SCH (21:40)
[2016-10-15] MEDS: ATORVASTATIN CALCIUM 10 MG TABLET. PO SCH (21:41)
[2016-10-16 02:00] VITALS: BP 108/60
[2016-10-16 05:50] VITALS: BP 105/50
[2016-10-16] MEDS: BUDESONIDE 0.5 MG/2 ML NEBU NEB SCH (07:34)
[2016-10-16] MEDS: ALBUTEROL SULFATE 2.5 MG/3 ML NEBU. NEB SCH (07:34)
--- NOTE | 2016-10-16 07:45 | PDOC ---
SURGICAL PROGRESS NOTE Subjective Doing much better finally had a BM and started passing more flatus last night. Pain better Vital Signs Vital Signs Date Time Temp Pulse Resp B/P Pulse Ox O2 Delivery O2 Flow Rate FiO2 10/16/16 05:50 97.9 104 20 105/50 93 Nasal Cannula 3.0 97.9 PATIENT HAS A ROSALES: No General: Alert, Oriented X3, Cooperative, No acute distress (resting comfortably, had to wake up to examine this am) HEENT: Atraumatic Heart: Regular rate Abdomen: Normal bowel sounds, Soft, No tenderness, Other (all port sites and incision c/d/i) Extremities: No clubbing, No cyanosis, No edema, No tenderness/swelling Skin: No rashes, No breakdown Neuro: Normal speech Psych/Mental Status: Mental status NL, Mood NL Labs Laboratory Tests Test 10/14/16 12:20 10/14/16 17:12 10/15/16 07:56 10/15/16 16:50 Glucose (Fingerstick) 110mg/dL (70-99) 111mg/dL (70-99) 110mg/dL (70-99) White Blood Count 16.3x10^3/uL (4.0-11.0) Red Blood Count 3.54x10^6/uL (3.50-5.40) Hemoglobin 9.0g/dL (12.0-15.5) Hematocrit 28.1% (36.0-47.0) Mean Corpuscular Volume 79fL (79-100) Mean Corpuscular Hemoglobin 25pg (25-35) Mean Corpuscular Hemoglobin Concent 32g/dL (31-37) Red Cell Distribution Width 18.8% (11.5-14.5) Platelet Count 363x10^3/uL (140-400) Neutrophils (%) (Auto) 75% (31-73) Lymphocytes (%) (Auto) 19% (24-48) Monocytes (%) (Auto) 5% (0-9) Eosinophils (%) (Auto) 1% (0-3) Basophils (%) (Auto) 1% (0-3) Neutrophils # (Auto) 12.2x10^3uL (1.8-7.7) Lymphocytes # (Auto) 3.1x10^3/uL (1.0-4.8) Monocytes # (Auto) 0.8x10^3/uL (0.0-1.1) Eosinophils # (Auto) 0.1x10^3/uL (0.0-0.7) Basophils # (Auto) 0.1x10^3/uL (0.0-0.2) Sodium Level 141mmol/L (136-145) Potassium Level 3.5mmol/L (3.5-5.1) Chloride Level 100mmol/L (98-107) Carbon Dioxide Level 32mmol/L (21-32) Anion Gap 9 (6-14) Blood Urea Nitrogen 5mg/dL (7-20) Creatinine 0.6mg/dL (0.6-1.0) Estimated GFR (Cockcroft-Gault) 109.1 BUN/Creatinine Ratio 8 (6-20) Glucose Level 128mg/dL (70-99) Calcium Level 8.7mg/dL (8.5-10.1) Total Bilirubin 0.5mg/dL (0.2-1.0) Aspartate Amino Transf (AST/SGOT) 26U/L (15-37) Alanine Aminotransferase (ALT/SGPT) 30U/L (14-59) Alkaline Phosphatase 97U/L (46-116) Total Protein 7.2g/dL (6.4-8.2) Albumin 3.2g/dL (3.4-5.0) Albumin/Globulin Ratio 0.8 (1.0-1.7) Laboratory Tests Test 10/15/16 07:56 10/15/16 16:50 Glucose (Fingerstick) 110mg/dL (70-99) White Blood Count 16.3x10^3/uL (4.0-11.0) Red Blood Count 3.54x10^6/uL (3.50-5.40) Hemoglobin 9.0g/dL (12.0-15.5) Hematocrit 28.1% (36.0-47.0) Mean Corpuscular Volume 79fL (79-100) Mean Corpuscular Hemoglobin 25pg (25-35) Mean Corpuscular Hemoglobin Concent 32g/dL (31-37) Red Cell Distribution Width 18.8% (11.5-14.5) Platelet Count 363x10^3/uL (140-400) Neutrophils (%) (Auto) 75% (31-73) Lymphocytes (%) (Auto) 19% (24-48) Monocytes (%) (Auto) 5% (0-9) Eosinophils (%) (Auto) 1% (0-3) Basophils (%) (Auto) 1% (0-3) Neutrophils # (Auto) 12.2x10^3uL (1.8-7.7) Lymphocytes # (Auto) 3.1x10^3/uL (1.0-4.8) Monocytes # (Auto) 0.8x10^3/uL (0.0-1.1) Eosinophils # (Auto) 0.1x10^3/uL (0.0-0.7) Basophils # (Auto) 0.1x10^3/uL (0.0-0.2) Sodium Level 141mmol/L (136-145) Potassium Level 3.5mmol/L (3.5-5.1) Chloride Level 100mmol/L (98-107) Carbon Dioxide Level 32mmol/L (21-32) Anion Gap 9 (6-14) Blood Urea Nitrogen 5mg/dL (7-20) Creatinine 0.6mg/dL (0.6-1.0) Estimated GFR (Cockcroft-Gault) 109.1 BUN/Creatinine Ratio 8 (6-20) Glucose Level 128mg/dL (70-99) Calcium Level 8.7mg/dL (8.5-10.1) Total Bilirubin 0.5mg/dL (0.2-1.0) Aspartate Amino Transf (AST/SGOT) 26U/L (15-37) Alanine Aminotransferase (ALT/SGPT) 30U/L (14-59) Alkaline Phosphatase 97U/L (46-116) Total Protein 7.2g/dL (6.4-8.2) Albumin 3.2g/dL (3.4-5.0) Albumin/Globulin Ratio 0.8 (1.0-1.7) I have reviewed the following labs, vitals, KUB Cardiovascular: HTN Pulmonary: Asthma GI: Constipation Heme/Onc: Iron deficiency Anemia Psych: No pertinent hx Infectious disease: No pertinent hx Endocrine: Diabetes Problem List Problems Medical Problems: (1) Diabetes Status: Acute (2) Dysmenorrhea Status: Acute (3) Menorrhagia Status: Acute (4) Pelvic adhesive disease Status: Acute (5) Uterine fibroid Status: Acute Assessment/Plan POD#4 s/p attempted LAVH/BSO with adhesiolysis and converted to YESY/BSO with adhesiolysis slow to move bowel but normal KUB yesterday and finally started more last Pm and feels better will d/c to home today NPV x 6 weeks light/limited activity x 2 weeks NO driving x 2 weeks Percocet-written may alternate with OTC ibuprofen as needed keep scheduled appt with me sunday in the office for staple removal too call or return sooner for any other questions or concerns not limited to but including pain unreleived with pain pills, increased or unexplained vaginal bleeding or T>100.4 Problems: MATT VARNER MD Oct 16, 2016 07:45
[2016-10-16] MEDS: PANTOPRAZOLE 40 MG TABLET. PO SCH (09:44)
[2016-10-16 09:45] VITALS: BP 112/65
[2016-10-16] MEDS: DIAZEPAM 5 MG TABLET PO SCH (09:45)
[2016-10-16] MEDS: ESCITALOPRAM 5 MG TABLET. PO SCH (09:45)
[2016-10-16 09:48] VITALS: BP 112/65
[2016-10-16] MEDS: DILTIAZEM HCL 120 MG CAP.ER.24H PO SCH (09:48)
[2016-10-16] MEDS: FERROUS SULFATE 325 MG TABLET PO SCH (09:48)
[2016-10-16] MEDS ORDERED: BISACODYL 10 MG SUPP.RECT PR PRN (12:30)
--- NOTE | 2016-10-17 17:16 | PATHOLOGY ---
PATHOLOGY REPORT * * * * * * * * FINAL DIAGNOSIS: Uterus and bilateral fallopian tubes and ovaries, laparoscopic-assisted vaginal hysterectomy with bilateral salpingo-oophorectomy: - SEVERE DYSPLASIA/CARCINOMA IN SITU (JERRY III), UTERINE CERVIX, FOCAL. SEE COMMENT. - Nabothian cysts, cervix, several, small. - Focal endometriosis, uterine cervix. - Proliferative endometrium. - Adenomyosis, uterine corpus, with mild myometrial hypertrophy (uterine weight 155 grams). - Bilateral fallopian tubes showing no significant pathologic abnormalities. - Few small cystic follicles of right ovary. - Hemorrhagic regressing luteum and cystic follicles of left ovary. COMMENT: The initial sections of uterine cervix revealed a small focus of severe dysplasia/carcinoma in situ (JERRY III). The remainder of the cervix is submitted for histologic evaluation. There are a few additional small foci of JERRY III. There is no evidence of invasive carcinoma. I cannot make a definitive statement about the exocervical margin since the exocervix and exocervical margin are not well visualized in the sections. Correlate clinically. (JPM:; d/t: 10/17/16) REPORT ELECTRONICALLY SIGNED BY: Rashawn Doyle M.D. DATE/TIME: 10/17/2016 17:16 * * * * * * * * GROSS PATHOLOGY: The specimen is received in formalin, labeled "Arlen Banegsa, uterus, cervix, bilateral fallopian tubes and bilateral ovaries". Received is an intact uterus with attached cervix and attached bilateral adnexa having a total weight of 167 g. The specimen measures 12.8 x 6.4 x 6.2 cm. The serosal surface displays a wrinkled, pale pinktan appearance with scattered areas of pale goldberg adhesions. The ectocervix measures 2.5 x 2.2 cm. The ectocervical mucosa displays a wrinkled, pale goldberg appearance with no obvious lesion identified. Bisecting the uterus reveals an unremarkable transformation zone with a 4.1 cm in length endocervical canal. The endometrial cavity is an inverted triangle measuring 3.2 x 3.0 cm. The endometrium displays a spongy, pale pinktan appearance and measures 0.1 cm in thickness. The myometrium measures up to 2.8 cm in thickness. Sectioning through the myometrium reveals a pinktan fascicular cut surface with no myometrial nodules identified. The right tube and ovary weigh 5 g. The ovary measures 2.5 x 1.8 x 1.0 cm. The external surface is partially smooth, partially cerebriform and pale greypink. Sectioning reveals multiple hemorrhagic cysts ranging in size from 0.1 cm to 0.5 cm. No evidence of papillary excrescences are identified. The remainder of the cut surface displays a variegated white-goldberg pale yellow appearance with no additional gross abnormalities. The right fallopian tube measures 4.5 cm in length and up to 0.5 cm in diameter. The distal portion is fimbriated. The serosal surface displays a wrinkled, pale pinktan appearance. Sectioning reveals a patent lumen. The left ovary and fallopian tube weighing 7 g. The ovary measures 3.2 x 1.5 x 1.0 cm. The capsular surface displays a smooth, shiny, pale pinktan appearance. Sectioning reveals multiple clear fluid-filled cysts ranging in size from 0.3 cm to 1.2 cm. No evidence of papillary excrescences are identified. The remainder of the cut surface displays a variegated white-goldberg to yellow appearance with no additional gross abnormalities. The fallopian tube measures 4.8 cm in length and up to 0.4 cm in diameter. The distal portion is fimbriated. The serosal surface displays a wrinkled, pale pinktan appearance. Sectioning reveals a patent lumen. Folder Gluer Operator sections are submitted as follows: [id number] cervix; [id number] cervix; [id number] endomyometrium; F8xspltrrnm endomyometrium; Q0yweip fallopian tube and ovary; A6left fallopian tube and ovary (SNA; 10/13/2016) After initial microscopic examination, the remainder the cervix is unable to be oriented and is submitted in a radial fashion in cassettes A7 through A20. (CAA; 10/16/2016) INITIAL CPT CODE(S): A; 85277 Professional services performed by [employer] at [facility] [address] [place] [address] Technical services performed by [employer] at [address] [place] [address], [address], [place] [address]. SPECIMEN(S) RECEIVED: A.Uterus, cervix, bilateral fallopian tubes, bilateral ovaries CLINICAL HISTORY: Dysmenorrhea, fibroids, menorrhagia, right ovarian cyst PATIENT: ARLEN BANEGAS Al /AGE: 7 1975 (Age: 41) PATIENT #: [id number] ALT CASE #: SPECIMEN COLLECTION DATE: 10/12/2016 SPECIMEN RECEIVED DATE: 10/12/2016 [facility] - [address] [place] [address] - PHONE: [phone] * * * END OF REPORT * * *
== END 2016-10-16 10:30 | disposition home or self-care (01) | DRG 743 ==
LOC: SURG 05:59 → 3 NORTH 11:25
PROVIDERS: ADMIT Obstetrics & Gynecology; ATTEND Obstetrics & Gynecology
PROC: 0UTC0ZZ Resection of Cervix, Open Approach (ICD-10-PCS; 2016-10-12)
PROC: 0UT20ZZ Resection of Bilateral Ovaries, Open Approach (ICD-10-PCS; 2016-10-12)
PROC: 0UT70ZZ Resection of Bilateral Fallopian Tubes, Open Approach (ICD-10-PCS; 2016-10-12)
PROC: 0UJD4ZZ Inspection of Uterus and Cervix, Percutaneous Endoscopic Approach (ICD-10-PCS; 2016-10-12)
PROC: 0DNW0ZZ Release Peritoneum, Open Approach (ICD-10-PCS; 2016-10-12)
PROC: 0UT90ZZ Resection of Uterus, Open Approach (ICD-10-PCS; principal; 2016-10-12 07:30)
DX: D25.9 Leiomyoma of uterus, unspecified (principal); E11.9 Type 2 diabetes mellitus without complications; I10 Essential (primary) hypertension; J45.909 Unspecified asthma, uncomplicated; N73.6 Female pelvic peritoneal adhesions (postinfective); D50.0 Iron deficiency anemia secondary to blood loss (chronic); N92.0 Excessive and frequent menstruation with regular cycle; Z53.31 Laparoscopic surgical procedure converted to open procedure
CPT/HCPCS: 36415; 74000; 80048; 80053; 81025; 82947; 85014; 85027; 86850; 86900; 86901; 88309; 94250; 94640; 94760; C1769; J0131; J0694; J1100; J1170; J1815; J2270; J2370; J2405; J2704; J2710; J3010; J3490; J7030; J7120; P9045; Q0162; Q9968; S0028

== ENCOUNTER 2016-10-24 16:33 | Emergency (ER) | payer OTHER ==
[~2016-10-24] VITALS: Ht 160 cm; Wt 93.9 kg
[~2016-10-24 16:33] MED LIST changes: +ALBU2.5V13 NEB; -ALBU2.5V14 NEB
[2016-10-24] MEDS ORDERED: CEPH500C PO (17:13)
[2016-10-24] MEDS ORDERED: HYDROCODONE/APAP 5/325MG TABLET. PO ONE (17:30)
[2016-10-24 17:55] LABS: BILIRUBIN,URINE NEGATIVE (NEG); GLUCOSE,URINE >=1000 mg/dL (NEG); NITRITE,URINE NEGATIVE (NEG); PH,URINE 6.5; PROTEIN,URINE 100 mg/dL (NEG-TRACE); UROBILINOGEN,URINE 0.2 mg/dL (0.2 mg/dL)
[2016-10-24 18:09] LABS: BACTERIA,URINE MODERATE /HPF (0-FEW); SQUAMOUS EPITHELIAL CELL,UR OCC /LPF
--- NOTE | 2016-10-24 18:32 | PHYS DOC ---
Past Medical History Past Medical History: A-Fib, Asthma, Depression, Diabetes-Type II, High Cholesterol, Hypertension Additional Past Medical Histor: NEUROPATHY Past Surgical History: Hysterectomy Additional Past Surgical Histo: unknown Alcohol Use: None Drug Use: None Adult General Chief Complaint Chief Complaint: FLANK PAIN HPI HPI 41-year-old female presenting to the emergency department with dysuria polyuria low back pain/bilateral flank pain and mild suprapubic abdominal pain. Her pain is sharp nonradiating mild and without alleviating factors. No specific timing. Otherwise she denies nausea vomiting fevers or chills. Review of systems is negative for chest pain shortness of breath headache fevers or chills. All other review of systems is negative unless otherwise noted in history of present illness. Review of Systems Review of Systems SEE ABOVE. Current Medications Current Medications Current Medications Medications (Trade) Dose Ordered Sig/Mo Start Time Stop Time Status Last Admin Dose Admin Acetaminophen/ Hydrocodone Bitart (Lortab 5/325) 2 tab 1X ONCE 10/24/16 17:30 10/24/16 17:31 DC 10/24/16 17:27 2 TAB Allergies Allergies Allergies Coded Allergies Type Severity Reaction Last Updated Verified carbidopa Allergy Intermediate 10/12/16 Yes Physical Exam Physical Exam Constitutional: Well developed, well nourished, no acute distress, non-toxic appearance. HENT: Normocephalic, atraumatic, bilateral external ears normal, oropharynx moist, no oral exudates, nose normal. [] Eyes: PERRLA, EOMI, conjunctiva normal, no discharge. [] Neck: Normal range of motion, no tenderness, supple, no stridor. Cardiovascular:Heart rate regular rhythm, no murmur Lungs & Thorax: Bilateral breath sounds clear to auscultation [] Abdomen: Abdomen is soft and minimally tender to palpation. No rebound tenderness or guarding present. The patient's surgical scar is clean dry and intact. Skin: Warm, dry, no erythema, no rash. Back: No tenderness, no CVA tenderness. [] Extremities: No tenderness, no cyanosis, no clubbing, ROM intact, no edema. Neurologic: Alert and oriented X 3, normal motor function, normal sensory function, no focal deficits noted. Psychologic: Affect normal, judgement normal, mood normal. [] Current Patient Data Vital Signs Vital Signs Date Time Temp Pulse Resp B/P Pulse Ox O2 Delivery O2 Flow Rate FiO2 10/24/16 19:13 98 20 148/74 97 10/24/16 17:13 98.2 Room Air 98.2 Lab Values Laboratory Tests Test 10/24/16 17:10 10/24/16 19:00 Urine Color Yellow Urine Clarity Cloudy Urine pH 6.5 Urine Specific [place] >=1.030 Urine Protein 100mg/dL (NEG-TRACE) Urine Glucose (UA) >=1000mg/dL (NEG) Urine Ketones (Stick) Tracemg/dL (NEG) Urine Blood Large (NEG) Urine Nitrite Negative (NEG) Urine Bilirubin Negative (NEG) Urine Urobilinogen Dipstick 0.2mg/dL (0.2 mg/dL) Urine Leukocyte Esterase Negative (NEG) Urine RBC 6-10/HPF (0-2) Urine WBC 5-10/HPF (0-4) Urine Squamous Epithelial Cells Occ/LPF Urine Bacteria Moderate/HPF (0-FEW) Urine Mucus Slight/LPF White Blood Count 13.5x10^3/uL (4.0-11.0) H Red Blood Count 3.69x10^6/uL (3.50-5.40) Hemoglobin 8.9g/dL (12.0-15.5) L Hematocrit 28.7% (36.0-47.0) L Mean Corpuscular Volume 78fL (79-100) L Mean Corpuscular Hemoglobin 24pg (25-35) L Mean Corpuscular Hemoglobin Concent 31g/dL (31-37) Red Cell Distribution Width 18.5% (11.5-14.5) H Platelet Count 329x10^3/uL (140-400) Neutrophils (%) (Auto) 76% (31-73) H Lymphocytes (%) (Auto) 17% (24-48) L Monocytes (%) (Auto) 5% (0-9) Eosinophils (%) (Auto) 1% (0-3) Basophils (%) (Auto) 1% (0-3) Neutrophils # (Auto) 10.3x10^3uL (1.8-7.7) H Lymphocytes # (Auto) 2.2x10^3/uL (1.0-4.8) Monocytes # (Auto) 0.7x10^3/uL (0.0-1.1) Eosinophils # (Auto) 0.1x10^3/uL (0.0-0.7) Basophils # (Auto) 0.2x10^3/uL (0.0-0.2) Platelet Estimate Increased (ADEQUATE) Polychromasia Slight Ovalocytes Occ Stomatocytes Occ Sodium Level 142mmol/L (136-145) Potassium Level 3.9mmol/L (3.5-5.1) Chloride Level 104mmol/L (98-107) Carbon Dioxide Level 29mmol/L (21-32) Anion Gap 9 (6-14) Blood Urea Nitrogen 8mg/dL (7-20) Creatinine 0.7mg/dL (0.6-1.0) Estimated GFR (Cockcroft-Gault) 91.3 Glucose Level 365mg/dL (70-99) H Lactic Acid Level 1.5mmol/L (0.4-2.0) Calcium Level 9.0mg/dL (8.5-10.1) Total Bilirubin 0.3mg/dL (0.2-1.0) Direct Bilirubin 0.1mg/dL (0.0-0.2) Aspartate Amino Transferase (AST) 8U/L (15-37) L Alanine Aminotransferase (ALT) 14U/L (14-59) Alkaline Phosphatase 93U/L (46-116) Troponin I Quantitative < 0.017ng/mL (0.000-0.055) KN-Fhj-D-Type Natriuretic Peptide 246pg/mL (0-124) H Total Protein 7.4g/dL (6.4-8.2) Albumin 3.0g/dL (3.4-5.0) L Lipase 98U/L (73-393) Laboratory Tests 10/24/16 19:00 Laboratory Tests 10/24/16 19:00 EKG EKG [] Radiology/Procedures Radiology/Procedures [] Course & Med Decision Making Course & Med Decision Making Pertinent Labs and Imaging studies reviewed. (See chart for details) [] 41-year-old female presenting to the emergency department today with dysuria polyuria and suprapubic abdominal pain. Vital signs were afebrile with mild increase in heart rate. Otherwise unremarkable. Physical exam showed minimal tenderness without rebound tenderness or guarding. Not suggestive of hemoperitoneum. Urinalysis not suggestive of infection. Mild dehydration presents specific gravity elevated. Many glucose and urine. Blood work obtained. Anemia present which according to car body mechanic is about baseline for the patient. Hyperglycemia without any evidence of acidosis. Otherwise leukocytosis present which is nonspecific, could be postsurgical, patient currently taking Keflex as well which makes the picture even less clear. Otherwise chemistry panel largely unremarkable. 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 The patient was then Discharged home to follow up with her SOLAR SALES ASSESSOR doctor over the next 3-4 days. Dragon Disclaimer Dragon Disclaimer This electronic medical record was generated, in whole or in part, using a voice recognition dictation system. Departure Departure Impression: Primary Impression: Pelvic pain Disposition: HOME, SELF-CARE Condition: STABLE Referrals: YASMIN LEIGH MD (PCP) Patient Instructions: Abdominal Pain (Nonspecific) Additional Instructions: Thank you for allowing us to participate in your care today. Followup with your primary care physician in 3 days if your symptoms do not improve. If you do not have a primary care provider you can ask for a list of our primary care providers. Return to the emergency department you have any new or concerning findings. This should be evaluated by the primary care physician and any necessary consulting services for continued management within a few days after discharge. Return to emergency room if you have any new or concerning symptoms including but not limited to fever, chills, nausea, vomiting, intractable pain, any new rashes, chest pain, shortness of air, uncontrolled bleeding, difficulty breathing, and/or vision loss. MARY STOVER MD Oct 24, 2016 18:32
[2016-10-24 19:08] LABS: BASO # 0.2 x10^3/uL (0.0-0.2); BASO % 1 % (0-3); EOS % 1 % (0-3); HEMATOCRIT 28.7 % (36.0-47.0); HEMOGLOBIN 8.9 g/dL (12.0-15.5); LYMPH # 2.2 x10^3/uL (1.0-4.8); LYMPH % 17 % (24-48); MEAN CORPUSCULAR HEMOGLOBIN 24 pg (25-35); MEAN CORPUSCULAR HGB CONC 31 g/dL (31-37); MEAN CORPUSCULAR VOLUME 78 fL (79-100); MONO % 5 % (0-9); NEUT % 76 % (31-73); PLATELET COUNT 329 x10^3/uL (140-400); RED BLOOD COUNT 3.69 x10^6/uL (3.50-5.40); RED CELL DISTRIBUTION WIDTH 18.5 % (11.5-14.5); WHITE BLOOD COUNT 13.5 x10^3/uL (4.0-11.0)
[2016-10-24 19:35] LABS: PLT ESTIMATE INCREASED (ADEQUATE); POLYCHROMASIA SLIGHT
[2016-10-24 19:36] LABS: CREATININE 0.7 mg/dL (0.6-1.0); GFR 91.3; OVALOCYTES OCC; POTASSIUM 3.9 mmol/L (3.5-5.1); STOMATOCYTES OCC
[2016-10-24 19:43] LABS: DIRECT BILIRUBIN 0.1 mg/dL (0.0-0.2); TOTAL BILIRUBIN 0.3 mg/dL (0.2-1.0); TOTAL PROTEIN 7.4 g/dL (6.4-8.2)
[2016-10-24 20:32] VITALS: BP 136/92
--- NOTE | 2016-10-25 06:35 | EKG ---
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
--- NOTE | 2016-10-25 08:08 | RAD ---
Indication hyperglycemia. Protocol study. A single view of the chest was obtained and is compared to an examination October 03, 2016. Cardiomegaly is unchanged. There is no congestive heart failure focal infiltrate or significant change in the appearance of the chest compared to the previous exam. IMPRESSION: No acute or focal process. No significant change
== END 2016-10-24 20:34 | disposition home or self-care (01) ==
LOC: ER 16:33
DX: R10.2 Pelvic and perineal pain (principal); M54.5 Low back pain; R30.0 Dysuria; E78.00 Pure hypercholesterolemia, unspecified; F32.9 Major depressive disorder, single episode, unspecified; I10 Essential (primary) hypertension; I48.91 Unspecified atrial fibrillation; J45.909 Unspecified asthma, uncomplicated; E11.40 Type 2 diabetes mellitus with diabetic neuropathy, unspecified; Z90.710 Acquired absence of both cervix and uterus; Z88.8 Allergy status to other drugs, medicaments and biological substances
CPT/HCPCS: 36415; 71010; 80048; 80076; 81001; 83605; 83690; 83880; 84484; 85007; 85027; 87086; 93005; 99285-25

== ENCOUNTER 2016-10-29 22:35 | Inpatient (IN) | payer OTHER ==
[~2016-10-29] VITALS: Ht 160 cm; Wt 94.8 kg
[~2016-10-29 22:35] MED LIST changes: -ALBU2.5V13 NEB; +ALBU2.5V14 NEB; +CEPH500C PO
[2016-10-29] MEDS ORDERED: 0.9 % SODIUM CHLORIDE 10 ML DISP.SYRIN. IV PRN (23:30)
--- NOTE | 2016-10-29 23:34 | PHYS DOC ---
Past Medical History Past Medical History: A-Fib, Asthma, Depression, Diabetes-Type II, High Cholesterol, Hypertension Additional Past Medical Histor: NEUROPATHY Past Surgical History: Hysterectomy Additional Past Surgical Histo: unknown Alcohol Use: None Drug Use: None Adult General Chief Complaint Chief Complaint: COUGH HPI HPI Patient is a 41 year old female with a history of atrial fibrillation, hypertension, hypercholesterolemia and diabetes who presents the emergency Department today with complaint of sore throat, cough, congestion, body aches, headache and generalized weakness that began within the past 24 hours. Patient denies any known ill contacts. She was hospitalized within the past 2 weeks for hysterectomy at this facility. She reports that she had otherwise been convalescing without any complications. Of incidental note, patient was here in July of this past year with bilateral pneumonia and respiratory complications secondary to that. She also has a history of asthma. Review of Systems Review of Systems Constitutional: Denies fever or chills [] Eyes: Denies change in visual acuity, redness, or eye pain [] HENT: Denies nasal congestion or sore throat [] Respiratory: Denies cough or shortness of breath [] Cardiovascular: No additional information not addressed in HPI [] GI: Denies abdominal pain, nausea, vomiting, bloody stools or diarrhea [] : Denies dysuria or hematuria [] Musculoskeletal: Denies back pain or joint pain [] Integument: Denies rash or skin lesions [] Neurologic: Denies headache, focal weakness or sensory changes [] Endocrine: Denies polyuria or polydipsia [] Current Medications Current Medications Current Medications Medications (Trade) Dose Ordered Sig/Mo Start Time Stop Time Status Last Admin Dose Admin Albuterol/ Ipratropium (Duoneb) 3 ml RTQID 10/30/16 08:00 10/31/16 07:59 UNV Albuterol/ Ipratropium 3 ml 3 ml 1X ONCE 10/30/16 00:15 10/30/16 00:16 UNV 10/30/16 00:31 3 ML Ciprofloxacin Lactate (Cipro 400mg Premix) 200 ml @ 200 mls/hr Q12HR 10/30/16 09:00 UNV Famotidine (Pepcid) 20 mg [id number] 10/30/16 07:00 UNV Piperacillin Sod/ Tazobactam Sod 1 each 1 each PRN DAILY PRN 10/30/16 00:30 UNV Piperacillin Sod/ Tazobactam Sod/ Sodium Chloride (Zosyn/Iv Sodium Chloride 0.9% 50ml) 50 ml @ 100 mls/hr 1X ONCE 10/30/16 00:30 10/30/16 00:59 UNV Sodium Chloride (Iv Sodium Chloride 0.9% 500ml Bag) 500 ml @ 500 mls/hr 1X ONCE 10/29/16 23:45 10/30/16 00:44 10/29/16 23:43 500 MLS/HR Sodium Chloride 10 ml 10 ml QSHIFT PRN 10/29/16 23:30 Vancomycin HCl (Vanco Per Pharmacy) 1 each PRN DAILY PRN 10/30/16 00:30 UNV Allergies Allergies Allergies Coded Allergies Type Severity Reaction Last Updated Verified carbidopa Allergy Intermediate 10/12/16 Yes Physical Exam Physical Exam Constitutional: This is an ill-appearing 41-year-old woman who ambulates with a slow, steady gait. Patient is barely able to lift her head up and look. Her temperature is 99.6. HENT: Normocephalic, atraumatic, bilateral external ears normal, oropharynx is tacky., no oral exudates, scant amount of clear rhinorrhea with boggy nasal mucosa. Eyes: PERRLA, EOMI, conjunctiva normal, no discharge. [] Neck: Normal range of motion, no tenderness, supple, no stridor. There is no meningismus. There is bilateral anterior and posterior cervical lymphadenopathy. Cardiovascular:Heart rate 132 with your irregular rhythm, no murmur Lungs & Thorax: There is no respiratory distress or respiratory fatigue. There is no sensory muscle use or posturing. There is decreased breath sounds bilaterally with poor inspiratory effort. There is no focal areas of wheezing or rhonchi. There are scant rales heard in the right upper lung region. Abdomen: Bowel sounds normal, soft, no tenderness, no masses, no pulsatile masses. [] Skin: Warm, dry, no erythema, no rash. [] Back: No tenderness, no CVA tenderness. [] Extremities: No tenderness, no cyanosis, no clubbing, ROM intact, no edema. Neurologic: Alert and oriented X 3, normal motor function, normal sensory function, no focal deficits noted. Patient does not have any focal deficits. She does appear generally weak. Psychologic: Affect normal, judgement normal, mood normal. [] Current Patient Data Vital Signs Vital Signs Date Time Temp Pulse Resp B/P Pulse Ox O2 Delivery O2 Flow Rate FiO2 10/30/16 00:31 90 Room Air 10/29/16 22:46 99.7 132 20 99.7 Lab Values Laboratory Tests Test 10/29/16 22:54 10/29/16 23:25 Influenza Type A Antigen Negative (NEGATIVE) Influenza Type B Antigen Negative (NEGATIVE) White Blood Count 8.1x10^3/uL (4.0-11.0) Red Blood Count 4.03x10^6/uL (3.50-5.40) Hemoglobin 9.6g/dL (12.0-15.5) L Hematocrit 31.0% (36.0-47.0) L Mean Corpuscular Volume 77fL (79-100) L Mean Corpuscular Hemoglobin 24pg (25-35) L Mean Corpuscular Hemoglobin Concent 31g/dL (31-37) Red Cell Distribution Width 19.4% (11.5-14.5) H Platelet Count 344x10^3/uL (140-400) Neutrophils (%) (Auto) 85% (31-73) H Lymphocytes (%) (Auto) 6% (24-48) L Monocytes (%) (Auto) 7% (0-9) Eosinophils (%) (Auto) 1% (0-3) Basophils (%) (Auto) 1% (0-3) Neutrophils # (Auto) 6.9x10^3uL (1.8-7.7) Lymphocytes # (Auto) 0.5x10^3/uL (1.0-4.8) L Monocytes # (Auto) 0.6x10^3/uL (0.0-1.1) Eosinophils # (Auto) 0.1x10^3/uL (0.0-0.7) Basophils # (Auto) 0.1x10^3/uL (0.0-0.2) Prothrombin Time 13.9SEC (11.7-14.0) Prothrombin Time INR 1.1 (0.8-1.1) Sodium Level 141mmol/L (136-145) Potassium Level 3.9mmol/L (3.5-5.1) Chloride Level 101mmol/L (98-107) Carbon Dioxide Level 29mmol/L (21-32) Anion Gap 11 (6-14) Blood Urea Nitrogen 10mg/dL (7-20) Creatinine 1.0mg/dL (0.6-1.0) Estimated GFR (Cockcroft-Gault) 60.5 Glucose Level 481mg/dL (70-99) H Calcium Level 9.2mg/dL (8.5-10.1) Magnesium Level 1.7mg/dL (1.8-2.4) L Total Bilirubin 0.3mg/dL (0.2-1.0) Direct Bilirubin 0.1mg/dL (0.0-0.2) Aspartate Amino Transferase (AST) 21U/L (15-37) Alanine Aminotransferase (ALT) 15U/L (14-59) Alkaline Phosphatase 95U/L (46-116) Creatine Kinase 46U/L (26-192) Creatine Kinase MB (Mass) < 0.5ng/mL (0.0-3.6) Creatine Kinase MB Relative Index 1.1% (0-4) ZU-Fds-Q-Type Natriuretic Peptide 173pg/mL (0-124) H Total Protein 7.9g/dL (6.4-8.2) Albumin 3.4g/dL (3.4-5.0) Laboratory Tests 10/29/16 23:25 Laboratory Tests 10/29/16 23:25 EKG EKG Twelve-lead EKG was performed at 12:45 AM that shows a tachycardic sinus rhythm with a rate of 126 bpm area did the rhythm is regular. AR interval 0 118 ms with a QRS duration of 80 ms and a QT duration of 468 ms. Radiology/Procedures Radiology/Procedures Portable AP chest shows an infiltrate of the right upper lobe that does obscure the cardiac borders. There is no evidence of pneumothorax or mass. There is mild pulmonary congestion. Course & Med Decision Making Course & Med Decision Making Case was staffed with Dr. Ríos, hospitalist. He will accept the patient on his service. Blood cultures have been ordered during initiation of labs. Initiation of triple antibiotic therapy for healthcare associated pneumonia has begun here in the emergency department. Patient also received DuoNeb treatments via RT. She will remain on oxygen to decrease her respiratory burden. She will receive 10 units of regular insulin IV here. A BMP has been ordered for morning lab draw. At this time, patient is hemodynamically stable. In the patient's BNP is mildly elevated, she does not currently display evidence of overt congestive heart failure. Currently, the bed capacity in the hospital is full. Patient is placed in a hold status here in the emergency department. Dragon Disclaimer Dragon Disclaimer This electronic medical record was generated, in whole or in part, using a voice recognition dictation system. Departure Departure Impression: Primary Impression: Healthcare-associated pneumonia Additional Impression: Hyperglycemia Disposition: ADMITTED INPATIENT Admitting Physician: Joaquín Ríos Condition: STABLE Referrals: YASMIN LEIGH MD (PCP) Problem Qualifiers JOSSIE REIS Oct 29, 2016 23:34
[2016-10-29 23:37] LABS: BASO # 0.1 x10^3/uL (0.0-0.2); BASO % 1 % (0-3); EOS % 1 % (0-3); HEMOGLOBIN 9.6 g/dL (12.0-15.5); LYMPH # 0.5 x10^3/uL (1.0-4.8); LYMPH % 6 % (24-48); MEAN CORPUSCULAR HEMOGLOBIN 24 pg (25-35); MEAN CORPUSCULAR HGB CONC 31 g/dL (31-37); MEAN CORPUSCULAR VOLUME 77 fL (79-100); MONO % 7 % (0-9); NEUT % 85 % (31-73); PLATELET COUNT 344 x10^3/uL (140-400); RED BLOOD COUNT 4.03 x10^6/uL (3.50-5.40); RED CELL DISTRIBUTION WIDTH 19.4 % (11.5-14.5); WHITE BLOOD COUNT 8.1 x10^3/uL (4.0-11.0)
[2016-10-29] MEDS ORDERED: IV NORMAL SALINE 500ML BAG 500 ML IV ONE (23:45)
[2016-10-29 23:46] LABS: INR 1.1 (0.8-1.1); PROTHROMBIN TIME PATIENT 13.9 SEC (11.7-14.0)
[2016-10-30] LABS: OBC FLU VALID
[2016-10-30 00:04] LABS: CALCIUM 9.2 mg/dL (8.5-10.1); GFR 60.5; POTASSIUM 3.9 mmol/L (3.5-5.1)
[2016-10-30 00:08] LABS: ALBUMIN 3.4 g/dL (3.4-5.0); DIRECT BILIRUBIN 0.1 mg/dL (0.0-0.2); MAGNESIUM 1.7 mg/dL (1.8-2.4); TOTAL BILIRUBIN 0.3 mg/dL (0.2-1.0); TOTAL PROTEIN 7.9 g/dL (6.4-8.2)
[2016-10-30 00:15] LABS: CREATINE KINASE 46 U/L (26-192)
[2016-10-30] MEDS ORDERED: IPRATRPIUM/ALBUTEROL 0.5/2.5MG 3 ML NEBU. NEB ONE (00:15)
[2016-10-30 00:17] LABS: CKMB INDEX 1.1 % (0-4); CKMB MASS < 0.5 ng/mL (0.0-3.6)
[2016-10-30] MEDS ORDERED: PIP/TAZO PER PHARMACY MC PRN (00:30)
[2016-10-30] MEDS ORDERED: INSULIN REGULAR 100 UNIT/ML 10ML VIAL. IV ONE (01:00)
[2016-10-30] MEDS ORDERED: PIPERACILLIN/TAZOBACTAM 3.375 GM in IV NORMAL SALINE 50ML 50 ML IV ONE (01:00)
[2016-10-30] MEDS ORDERED: CIPROFLOXACIN 400MG PREMIX 200 ML IV ONE (01:30)
--- NOTE | 2016-10-30 02:00 | ACF ---
Admission Forms Criteria DIABETES Clinical Indications for Admission to Inpatient Care (Place 'X' for any and all applicable criteria): Admission is indicated by presence of ALL (if I & II) or ANY ONE (if III or IV) of the following (1)(2)(3)(4): [ ]I. Diabetes is uncontrolled as indicated by ANY ONE of the following: [ ]a) Diabetic ketoacidosis as indicated by ALL of the following (8): [ ]i) Hyperglycemia (eg, plasma glucose greater than 200 mg/ dL (11.1 mmol/L)) [ ]ii) Acidosis (eg, arterial pH less than 7.30, serum bicarbonate level less than 15 mEq/L (mmol/L)) [ ]iii) Moderate ketonuria or ketonemia [ ]b) Hyperglycemic hyperosmolar state as indicated by ALL of the following(9)(10): [ ]i) Neurologic dysfunction (eg, stupor, coma, hemiparesis , seizure)(13) [ ]ii) Plasma glucose greater than 600 mg/dL (33.3 mmol/L) [ ]iii) Serum osmolality greater than 320 mOsm/kg (mmol/kg) [ ]c) Severe signs or symptoms secondary to hyperglycemia indicated by ANY ONE of the following: [ ]i) Altered mental status(10) [ ]ii) Significant hypovolemia or dehydration [ ]iii) Intractable nausea or vomiting [ ]iv) Unexplained fever or severe infection [ ]v) Severe electrolyte abnormality (eg, hypokalemia, hyperkalemia, hypernatremia) [ ]II. Management at other levels of care (Also use Diabetes: Observation Care as appropriate) is not feasible because of ANY ONE of the following: [ ]a) Condition was not adequately corrected with treatment at other levels of care. [ ]b) Treatment at other levels of care is not appropriate because of condition severity (eg, hyperosmolar coma). [ ]III. Contraindications and/or Inappropriate clinical situations for Observational Care in patients with Diabetes, when ANY ONE of the following is required: [ ]a) Patient require specific diagnostic workup or therapeutic intervention 22 [ ]b) Patient with abnormal vital signs or altered mental status 23 [X]IV. General contraindications and/or Inappropriate clinical situations for Observational Care in patients with Diabetes, when ANY ONE of the following is required: [X]a) Prediction of prolongation of LOS based on ANY ONE of the following may be considered as a contraindication for observational care 2, 3, 4, 5, 6, 7, 8, 9, 10, 11 [ ]i) Age > 65 yrs. [ ]ii) Patient arriving by ambulance [ ]iii) Patient with high acuity [ ]iv) Patient requiring vital sign monitoring [X]v) Patient on IV medication [ ]b) Systolic blood pressures 180mmHg 3,12 [ ]c) Patient with altered mental status including delirium and other alteration of consciousness, (3) [ ]d) Patient whose discharge disposition will be to a fpc home or rehabilitation home should not be managed in Emergency Department Observation Unit. CMS rule requires 3 days hospital stay before such placement.3,13 [ ]e) Patient with failure to thrive due to broad array of etiologies 3,16,17 [ ]f) Inability to ambulate 3,14 Extended stay beyond goal length of stay may be needed for(3)(20): [ ]a) Treatment of precipitating causes [ ]b) Development of hypoglycemia [ ]c) Complications of treatment [ ]d) Complications of decompensated diabetes (eg, acute gastric dilatation, persistent metabolic or neurologic derangement) [ ]e) Active Comorbidities [ ]f) Older patients( 65 years or older) The original [facility] content created by [employer] has been revised. The portions of the content which have been revised are identified through the use of italic text or in bold,and [facility] has neither reviewed nor approved the modified material. All other unmodified content is copyright [facility]. Please see references footnoted in the original [facility] [employer] edition 2015 Admission Criteria Met?: Yes REE MILLER Oct 30, 2016 02:00
[2016-10-30] MEDS: FAMOTIDINE 20 MG TABLET. PO SCH ×3 (02:41→21:33)
[2016-10-30] MEDS ORDERED: VANCOMYCIN 2 GM in IV NORMAL SALINE 500ML BAG 500 ML IV ONE (05:00)
--- NOTE | 2016-10-30 06:39 | EKG ---
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
[2016-10-30 08:20] VITALS: BP 144/75
[2016-10-30] MEDS: IPRATRPIUM/ALBUTEROL 0.5/2.5MG 3 ML NEBU. NEB SCH ×4 (08:39→20:18)
[2016-10-30] MEDS: PIPERACILLIN/TAZOBACTAM 4.5 GM in IV NORMAL SALINE 100ML 100 ML IV SCH ×3 (09:15→17:18)
--- NOTE | 2016-10-30 09:15 | RAD ---
INDICATION: dyspnea, tachycardia, hypoxia COMPARISON: 10/24/2016 FINDINGS: Single view of chest obtained. Cardiac silhouette is prominent in size. No definite new region of airspace consolidation. No grossly displaced acute appearing fracture IMPRESSION: Enlarged cardiac silhouette without focal airspace consolidation.
[2016-10-30] MEDS: VANCOMYCIN PER PHARMACY MC PRN (10:11)
[2016-10-30] MEDS ORDERED: HYDROCODONE/APAP 5/325MG TABLET. PO PRN (10:15)
[2016-10-30] MEDS: PROMETH/CODEINE 6.25/10MG 5 ML SYRUP. PO PRN ×3 (10:31→21:44)
[2016-10-30 11:00] VITALS: BP 151/82
[2016-10-30] MEDS: FERROUS SULFATE 325 MG TABLET PO SCH (12:10)
[2016-10-30] MEDS: ASPIRIN ENTERIC COATED 81 MG TABLET.DR. PO SCH (12:10)
[2016-10-30] MEDS: PANTOPRAZOLE 40 MG TABLET. PO SCH (12:10)
[2016-10-30] MEDS: CETIRIZINE HCL 10 MG TABLET PO SCH (12:10)
[2016-10-30] MEDS: NYSTATIN 100,000 UNIT/GM TOPICAL CREAM 15GM TUBE. TP SCH ×2 (12:30→21:00)
--- NOTE | 2016-10-30 12:50 | PDOC2 ---
DALTON GUDINO SPEECH WRITER 10/30/16 1250: CARDIAC CONSULT DATE OF CONSULT Date of Consult DATE: 10/30/16 TIME: 12:36 REASON FOR CONSULT Reason for Consult: Afib RVR REFERRING PHYSICIAN Referring Physician: Magda HISTORY OF PRESENT ILLNESS HISTORY OF PRESENT ILLNESS This is a pleasant 41 yo female admitted for multiple complains of cough, sore throat and myalgia. Reported this started occurring in the last 48 hours. Denies any chest pain, palpitations nor SOA. Noted coughing that she could not expectorate her phlegm and notable nasal congestion. She recently had YESY/BSO about 2 weeks ago which she did well. Consult is for AFIB RVR but no evidence was noted. Her rhythm was sinus tachycardia with rates in the 120s. She does have hx of PAFIB and is on cardizem for this. No anticoagulation is noted in her regimen for no clear reason but I would suspect due to significant menorrhagia with eventual YESY. She has CAD with no stent placement done in 2015 but failed to follow up, blaming her multiple hospitalization in the last 4 months. Currently negative for cardiac symptoms. PAST MEDICAL HISTORY Past Medical History Cardiovascular: CAD, HTN, Hyperlipidemia, AFIB Pulmonary: Asthma, Pneumonia CENTRAL NERVOUS SYSTEM: Migraine, Peripheral neuropathy, Other (RLS) GI: GERD Heme/Onc: Anemia NOS Psych: Anxiety, Depression Musculoskeletal: Osteoarthritis Rheumatologic: No pertinent hx Infectious disease: No pertinent hx ENT: No pertinent hx Endocrine: Diabetes (2) Dermatology: No pertinent hx Grav: 6 Para: 4 Pulmonary: Pneumonia PAST SURGICAL HISTORY Past Surgical History (D & C as well), hysterectomy FAMILY HISTORY Family History Heart Disease (grandmother) SOCIAL HISTORY Smoke: No ALCOHOL: none Drugs: None Lives: with Family CURRENT MEDICATIONS CURRENT MEDICATIONS Current Medications Medications (Trade) Dose Ordered Sig/Mo Route PRN Reason Start Time Stop Time Status Last Admin Dose Admin Sodium Chloride (Iv Sodium Chloride 0.9% 500ml Bag) 500 ml @ 500 mls/hr 1X ONCE IV 10/29/16 23:45 10/30/16 00:44 DC 10/29/16 23:43 Albuterol/ Ipratropium 3 ml 3 ml 1X ONCE NEB 10/30/16 00:15 10/30/16 00:57 DC 10/30/16 00:31 Piperacillin Sod/ Tazobactam Sod 3.375 gm/Sodium Chloride 50 ml @ 100 mls/hr 1X ONCE IV 10/30/16 01:00 10/30/16 01:29 DC 10/30/16 02:38 Ciprofloxacin Lactate (Cipro 400mg Premix) 200 ml @ 200 mls/hr 1X ONCE IV 10/30/16 01:30 10/30/16 02:29 DC 10/30/16 03:35 Vancomycin HCl (Vanco Per Pharmacy) 1 each PRN DAILY PRN MC SEE COMMENTS 10/30/16 00:30 10/30/16 10:11 Albuterol/ Ipratropium (Duoneb) 3 ml RTQID NEB 10/30/16 08:00 10/31/16 07:59 10/30/16 12:19 Famotidine (Pepcid) 20 mg BID PO 10/30/16 02:00 10/30/16 09:16 Insulin Human Regular 10 unit 10 unit 1X ONCE IV 10/30/16 01:00 10/30/16 01:01 DC 10/30/16 02:33 Vancomycin HCl 2 gm/Sodium Chloride 500 ml @ 250 mls/hr 1X ONCE IV 10/30/16 05:00 10/30/16 06:59 DC 10/30/16 04:56 Piperacillin Sod/ Tazobactam Sod/ Sodium Chloride (Zosyn/Iv Sodium Chloride 0.9% 100ml) 100 ml @ 200 mls/hr Q6HRS IV 10/30/16 08:00 10/30/16 09:15 Promethazine HCl/ Codeine (Phenergan With Codeine) 5 ml PRN Q4HRS PRN PO COUGH 10/30/16 10:15 10/30/16 10:31 Acetaminophen/ Hydrocodone Bitart (Lortab 5/325) 1 tab PRN Q4HRS PRN PO PAIN 10/30/16 10:15 10/30/16 11:31 DC 10/30/16 10:30 ALLERGIES ALLERGIES: Coded Allergies: carbidopa (Verified Allergy, Intermediate, 10/12/16) ROS Review of System 14 point ROS evaluated with pertinent positives noted per HPI PHYSICAL EXAM General: Alert, Oriented X3, Cooperative, No acute distress HEENT: Atraumatic, Mucous membr. moist/pink, Other (nasal congestion) Lungs: Other (bibasilar crackles) Heart: Regular rate, Normal S1, Normal S2, No murmurs Abdomen: Soft, No tenderness Extremities: No cyanosis, No edema Skin: No breakdown, No significant lesion Neuro: Normal speech, Sensation intact Psych/Mental Status: Mental status NL, Mood NL MUSCULOSKELETAL: Osteoarthritic changes both hands VITALS VITALS Vital Signs Date Time Temp Pulse Resp B/P Pulse Ox O2 Delivery O2 Flow Rate FiO2 10/30/16 12:20 94 Nasal Cannula 2.0 10/30/16 11:00 103.6 118 18 151/82 103.6 LABS Lab: Laboratory Tests Test 10/29/16 22:54 10/29/16 23:25 10/30/16 02:19 10/30/16 08:29 Influenza Type A Antigen Negative (NEGATIVE) Influenza Type B Antigen Negative (NEGATIVE) White Blood Count 8.1x10^3/uL (4.0-11.0) Red Blood Count 4.03x10^6/uL (3.50-5.40) Hemoglobin 9.6g/dL (12.0-15.5) Hematocrit 31.0% (36.0-47.0) Mean Corpuscular Volume 77fL (79-100) Mean Corpuscular Hemoglobin 24pg (25-35) Mean Corpuscular Hemoglobin Concent 31g/dL (31-37) Red Cell Distribution Width 19.4% (11.5-14.5) Platelet Count 344x10^3/uL (140-400) Neutrophils (%) (Auto) 85% (31-73) Lymphocytes (%) (Auto) 6% (24-48) Monocytes (%) (Auto) 7% (0-9) Eosinophils (%) (Auto) 1% (0-3) Basophils (%) (Auto) 1% (0-3) Neutrophils # (Auto) 6.9x10^3uL (1.8-7.7) Lymphocytes # (Auto) 0.5x10^3/uL (1.0-4.8) Monocytes # (Auto) 0.6x10^3/uL (0.0-1.1) Eosinophils # (Auto) 0.1x10^3/uL (0.0-0.7) Basophils # (Auto) 0.1x10^3/uL (0.0-0.2) Prothrombin Time 13.9SEC (11.7-14.0) Prothromb Time International Ratio 1.1 (0.8-1.1) Sodium Level 141mmol/L (136-145) Potassium Level 3.9mmol/L (3.5-5.1) Chloride Level 101mmol/L (98-107) Carbon Dioxide Level 29mmol/L (21-32) Anion Gap 11 (6-14) Blood Urea Nitrogen 10mg/dL (7-20) Creatinine 1.0mg/dL (0.6-1.0) Estimated GFR (Cockcroft-Gault) 60.5 Glucose Level 481mg/dL (70-99) Calcium Level 9.2mg/dL (8.5-10.1) Magnesium Level 1.7mg/dL (1.8-2.4) Total Bilirubin 0.3mg/dL (0.2-1.0) Direct Bilirubin 0.1mg/dL (0.0-0.2) Aspartate Amino Transf (AST/SGOT) 21U/L (15-37) Alanine Aminotransferase (ALT/SGPT) 15U/L (14-59) Alkaline Phosphatase 95U/L (46-116) Creatine Kinase 46U/L (26-192) Creatine Kinase MB (Mass) < 0.5ng/mL (0.0-3.6) Creatine Kinase MB Relative Index 1.1% (0-4) Troponin I Quantitative < 0.017ng/mL (0.000-0.055) DI-Kct-E-Type Natriuretic Peptide 173pg/mL (0-124) Total Protein 7.9g/dL (6.4-8.2) Albumin 3.4g/dL (3.4-5.0) Glucose (Fingerstick) 501mg/dL (70-99) 430mg/dL (70-99) Test 10/30/16 11:06 Glucose (Fingerstick) 483mg/dL (70-99) ECHOCARDIOGRAM ECHOCARDIOGRAM <Conclusion> Structurally normal heart. EF 60% DATE: 10/12/15 1223 STRESS TEST STRESS TEST Conclusion 1. No evidence of significant ischemia or previous myocardial infarction appreciated. 2. Ejection fraction calculated to be 57% with normal wall motion on gated SPECT images. 3. Normal nuclear imaging scan. DATE: 10/02/14 1618 HEART CATH HEART CATH Conclusion 1. 80% stenosis involving a small caliber obtuse marginal branch of left circumflex artery. No other significant stenoses were noted. 2. Normal left ventricular systolic function with ejection fraction estimated at 60%. Recommendations Medical Therapy DATE: 07/28/16 1125 ASSESSMENT/PLAN ASSESSMENT/PLAN 1. PAFIB: none this time. Positive for sinus tach, reactive. Will need NOAC once ok with weeder on ASA. 2. Pneumonia: Tmax 103.6 3. Microcytic hypochromic anemia: Hgb 9.6 4. Recent YESY/BSO 5. Uncontrolled DM2: BG 502 6. CAD: no anginal symptoms. stable. Recommendation 1. Continue with ASA. Cardizem CD po. Consider NOAC once cleared by LAB TECH 2. Discussed adherence with outpt appointments and treatment regimen 3. Continue with secondary prevention. Add lisinopril to regimen 4. Optimize BG control per PCP 5. Pulmonary consult 6. F/U TTE, lipid panel. Problems: LUCIA LÓPEZ MD 10/31/16 0946: CARDIAC CONSULT ALLERGIES ALLERGIES: Coded Allergies: carbidopa (Verified Allergy, Intermediate, 10/12/16) ASSESSMENT/PLAN ASSESSMENT/PLAN Patient seen and examined 10/30/16. Agree with PROBATE LAWYER's assessment and plan. Patient presently back in sinus rhythm. Continue cardizem. 2D echo showed normal LV systolic function. Add NOAC once ok from Feed Management Advisor standpoint. Thank you for your consultation. Problems: DALTON GUDINO APRN Oct 30, 2016 12:50 LUCIA LÓPEZ MD Oct 31, 2016 09:46
[2016-10-30] MEDS ORDERED: CEPHALEXIN 500 MG PO SCH (13:00)
[2016-10-30] MEDS: ESCITALOPRAM 5 MG TABLET. PO SCH (13:18)
[2016-10-30] MEDS: DILTIAZEM HCL 120 MG CAP.ER.24H PO SCH (13:19)
[2016-10-30] MEDS: DIAZEPAM 5 MG TABLET PO SCH (13:20)
[2016-10-30] MEDS: INSULIN ASPART 300 UNITS/3 ML INSULN.PEN SQ SCH ×2 (13:28→17:17)
[2016-10-30] MEDS: CYCLOBENZAPRINE 10 MG TABLET. PO SCH ×2 (13:30→21:33)
[2016-10-30] MEDS: GABAPENTIN 400 MG CAPSULE. PO SCH ×2 (13:30→21:33)
[2016-10-30 14:47] LABS: CHOLESTEROL/HDL RATIO 5.2
[2016-10-30 15:00] VITALS: BP 155/83
--- NOTE | 2016-10-30 15:23 | CARD ---
APPROVED REPORT EXAM: Two-dimensional and M-mode echocardiogram with Doppler and color Doppler. Other Information Quality : Good INDICATION Atrial Fibrillation Cardiac Disease: CAD 2D DIMENSIONS RVDd3.2 (2.9-3.5cm)Left Atrium(2D)4.0 (1.6-4.0cm) IVSd1.4 (0.7-1.1cm)Aortic Root(2D)2.8 (2.0-3.7cm) LVDd4.5 (3.9-5.9cm)LVOT Diameter1.9 (1.8-2.4cm) PWd1.4 (0.7-1.1cm)LVDs3.0 (2.5-4.0cm) FS (%) 31.9 %SV55.1 ml LVEF(%)60.2 (>50%) Aortic Valve AoV Peak Stephen.224.7cm/sAoV VTI34.0cm AO Peak GR.20.2mmHgLVOT Peak Stephen.132.0cm/s AO Mean GR.11mmHgAVA (VMAX)1.72cm2 KEATON (VTI)1.90cm2 Mitral Valve MV E Ogzydpkd195.8cm/sMV DECEL [id number] MV A Pwfghthu64.2cm/sE/A Ratio1.4 Tricuspid Valve TR P. Fmykqiiy336ok/sRAP [id number] TR Peak Gr.73wdPfCTFV90prNz Pulmonary Vein S1 Wmcmvgpj76.9cm/sD2 Hlqfmhtk85.8cm/s PVa [id number] LEFT VENTRICLE The left ventricle is normal size. There is mild to moderate concentric left ventricular hypertrophy. The left ventricular systolic function is normal and the ejection fraction is within normal range. T he Ejection Fraction is 55-60%. There is normal LV segmental wall motion. Transmitral Doppler flow pa ttern is normal for age. RIGHT VENTRICLE The right ventricle is normal size. The right ventricular systolic function is normal. ATRIA The left atrium is borderline dilated. The right atrium size is normal. The interatrial septum is int act with no evidence for an atrial septal defect or patent foramen ovale as noted on 2-D or Doppler i maging. AORTIC VALVE The aortic valve is calcified but opens well. Doppler and Color Flow revealed no significant aortic r egurgitation. There is no significant aortic valvular stenosis. MITRAL VALVE The mitral valve is normal in structure and function. There is no evidence of mitral valve prolapse. There is no mitral valve stenosis. Doppler and Color-flow revealed trace mitral regurgitation. TRICUSPID VALVE The tricuspid valve is normal in structure and function. Doppler and Color Flow revealed trace tricus pid regurgitation. There is no pulmonary hypertension. The PA pressure was estimated at 26 mmHg. Ther e is no tricuspid valve stenosis. PULMONIC VALVE Doppler and Color Flow revealed no pulmonic valvular regurgitation. There is no pulmonic valvular chela nosis. GREAT VESSELS The aortic root is normal in size. The ascending aorta is normal in size. The IVC is normal in size a nd collapses >50% with inspiration. PERICARDIAL EFFUSION There is no evidence of significant pericardial effusion. Critical Notification Critical Value: No <Conclusion> The left ventricular systolic function is normal and the ejection fraction is within normal range. Th e Ejection Fraction is 55-60%. There is normal LV segmental wall motion.
[2016-10-30] MEDS: HYDROCODONE/APAP 5/325MG TABLET. PO PRN ×2 (15:30→21:45)
--- NOTE | 2016-10-30 16:23 | HP ---
ADMIT DATE: 10/30/2016 CHIEF COMPLAINT: Shortness of breath, cough. 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 Basically, she presents today with cough, shortness of breath, weakness, chest x-ray showing pneumonia. She also has hyperglycemia. I have discussed the case with ER physician. We are going to admit the patient and give her IV antibiotics, breathing treatments, consult pulmonary medicine. PAST MEDICAL HISTORY: Asthma, AFib, depression, diabetes, hyperlipidemia, hypertension, neuropathy, hysterectomy. ALLERGIES: CARBIDOPA. FAMILY HISTORY: Diabetes. SOCIAL HISTORY: She does not drink, smoke or take drugs. MEDICATIONS: Reviewed, please refer to the MRAD. REVIEW OF SYSTEMS: GENERAL: The patient complains of weakness and bodyaches. SKIN: No bruising, hair changes or rashes. EYES: No blurred, double or loss of vision. NOSE AND THROAT: No history of nosebleeds, hoarseness or sore throat. HEART: No history of palpitations, chest pain or shortness of breath on exertion. LUNGS: The patient complains of shortness of breath. GASTROINTESTINAL: Denies changes in appetite, nausea, vomiting, diarrhea or constipation. GENITOURINARY: No history of frequency, urgency, hesitancy or nocturia. NEUROLOGIC: Denies history of numbness, tingling, tremor or weakness. PSYCHIATRIC: No history of panic, anxiety or depression. ENDOCRINE: No history of heat or cold intolerance, polyuria or polydipsia. EXTREMITIES: Denies muscle weakness, joint pain, pain on walking or stiffness. PHYSICAL EXAMINATION: VITAL SIGNS: Temperature 101.8, pulse 104, respirations 25, blood pressure 115/59. GENERAL: She is alert, weak, seems depressed. She has a cough. She has nasal congestion, wants Sprite. HEART: Distant S1, S2. A little bit tachycardic. LUNGS: Coarse. ABDOMEN: Soft, positive bowel sounds, a little obese. EXTREMITIES: 1+ edema. SKIN: No rashes. PSYCHIATRIC: She is depressed. VASCULAR: Good capillary refill. ENDOCRINE: No thyromegaly. LYMPHATICS: No cervical nodes. HEMATOPOIETIC: No bruising. LABORATORY DATA: White count 8, hemoglobin 9.6, platelets 344. Electrolytes are pending. Glucose is 501. Troponin is 0. INR is 1.1. Influenza A and B are negative. Chest x-ray shows probable pneumonia by my eye with an increased cardiac silhouette. ASSESSMENT AND PLAN: Clinical pneumonia. The patient has been admitted. We will start IV antibiotics, breathing treatments, oxygen. Consult pulmonary medicine. Continue home medicines. Frequent labs. MEDHAT LARSON DO DR: VIVI/dylan JOB#: [id number] / [id number]
[2016-10-30] MEDS: VANCOMYCIN 1.5 GM in IV NORMAL SALINE 500ML BAG 500 ML IV SCH (17:12)
[2016-10-30] MEDS: LISINOPRIL 10 MG TABLET PO SCH (17:13)
[2016-10-30] MEDS ORDERED: ASPI81TA9 PO (17:15)
[2016-10-30] MEDS ORDERED: BENZOCAINE/MENTHOL LOZENGE. PO PRN (18:15)
[2016-10-30 19:00] VITALS: BP 160/80
--- NOTE | 2016-10-30 19:24 | PDOC ---
PULMONARY PROGRESS NOTES Vitals Vital Signs Date Time Temp Pulse Resp B/P Pulse Ox O2 Delivery O2 Flow Rate FiO2 10/30/16 17:13 111 155/83 10/30/16 16:35 Nasal Cannula 2.0 10/30/16 15:00 101.5 18 94 101.5 General: Alert, Oriented X4, No acute distress Lungs: Crackles Cardiovascular: S1, S2 Abdomen: Soft, Non-tender Extremities: Other Labs Laboratory Tests Test 10/29/16 22:54 10/29/16 23:25 10/30/16 02:19 10/30/16 08:29 Influenza Type A Antigen Negative (NEGATIVE) Influenza Type B Antigen Negative (NEGATIVE) White Blood Count 8.1x10^3/uL (4.0-11.0) Red Blood Count 4.03x10^6/uL (3.50-5.40) Hemoglobin 9.6g/dL (12.0-15.5) Hematocrit 31.0% (36.0-47.0) Mean Corpuscular Volume 77fL (79-100) Mean Corpuscular Hemoglobin 24pg (25-35) Mean Corpuscular Hemoglobin Concent 31g/dL (31-37) Red Cell Distribution Width 19.4% (11.5-14.5) Platelet Count 344x10^3/uL (140-400) Neutrophils (%) (Auto) 85% (31-73) Lymphocytes (%) (Auto) 6% (24-48) Monocytes (%) (Auto) 7% (0-9) Eosinophils (%) (Auto) 1% (0-3) Basophils (%) (Auto) 1% (0-3) Neutrophils # (Auto) 6.9x10^3uL (1.8-7.7) Lymphocytes # (Auto) 0.5x10^3/uL (1.0-4.8) Monocytes # (Auto) 0.6x10^3/uL (0.0-1.1) Eosinophils # (Auto) 0.1x10^3/uL (0.0-0.7) Basophils # (Auto) 0.1x10^3/uL (0.0-0.2) Prothrombin Time 13.9SEC (11.7-14.0) Prothromb Time International Ratio 1.1 (0.8-1.1) Sodium Level 141mmol/L (136-145) Potassium Level 3.9mmol/L (3.5-5.1) Chloride Level 101mmol/L (98-107) Carbon Dioxide Level 29mmol/L (21-32) Anion Gap 11 (6-14) Blood Urea Nitrogen 10mg/dL (7-20) Creatinine 1.0mg/dL (0.6-1.0) Estimated GFR (Cockcroft-Gault) 60.5 Glucose Level 481mg/dL (70-99) Calcium Level 9.2mg/dL (8.5-10.1) Magnesium Level 1.7mg/dL (1.8-2.4) Total Bilirubin 0.3mg/dL (0.2-1.0) Direct Bilirubin 0.1mg/dL (0.0-0.2) Aspartate Amino Transf (AST/SGOT) 21U/L (15-37) Alanine Aminotransferase (ALT/SGPT) 15U/L (14-59) Alkaline Phosphatase 95U/L (46-116) Creatine Kinase 46U/L (26-192) Creatine Kinase MB (Mass) < 0.5ng/mL (0.0-3.6) Creatine Kinase MB Relative Index 1.1% (0-4) Troponin I Quantitative < 0.017ng/mL (0.000-0.055) JQ-Lnu-A-Type Natriuretic Peptide 173pg/mL (0-124) Total Protein 7.9g/dL (6.4-8.2) Albumin 3.4g/dL (3.4-5.0) Glucose (Fingerstick) 501mg/dL (70-99) 430mg/dL (70-99) Test 10/30/16 11:06 10/30/16 14:10 10/30/16 16:59 Glucose (Fingerstick) 483mg/dL (70-99) 261mg/dL (70-99) Triglycerides Level 194mg/dL (0-150) Cholesterol Level 135mg/dL (0-200) LDL Cholesterol, Calculated 70mg/dL (0-100) VLDL Cholesterol, Calculated 39mg/dL (0-40) HDL Cholesterol 26mg/dL (40-60) Cholesterol/HDL Ratio 5.2 Laboratory Tests Test 10/29/16 22:54 10/29/16 23:25 10/30/16 02:19 10/30/16 08:29 Influenza Type A Antigen Negative (NEGATIVE) Influenza Type B Antigen Negative (NEGATIVE) White Blood Count 8.1x10^3/uL (4.0-11.0) Red Blood Count 4.03x10^6/uL (3.50-5.40) Hemoglobin 9.6g/dL (12.0-15.5) Hematocrit 31.0% (36.0-47.0) Mean Corpuscular Volume 77fL (79-100) Mean Corpuscular Hemoglobin 24pg (25-35) Mean Corpuscular Hemoglobin Concent 31g/dL (31-37) Red Cell Distribution Width 19.4% (11.5-14.5) Platelet Count 344x10^3/uL (140-400) Neutrophils (%) (Auto) 85% (31-73) Lymphocytes (%) (Auto) 6% (24-48) Monocytes (%) (Auto) 7% (0-9) Eosinophils (%) (Auto) 1% (0-3) Basophils (%) (Auto) 1% (0-3) Neutrophils # (Auto) 6.9x10^3uL (1.8-7.7) Lymphocytes # (Auto) 0.5x10^3/uL (1.0-4.8) Monocytes # (Auto) 0.6x10^3/uL (0.0-1.1) Eosinophils # (Auto) 0.1x10^3/uL (0.0-0.7) Basophils # (Auto) 0.1x10^3/uL (0.0-0.2) Prothrombin Time 13.9SEC (11.7-14.0) Prothromb Time International Ratio 1.1 (0.8-1.1) Sodium Level 141mmol/L (136-145) Potassium Level 3.9mmol/L (3.5-5.1) Chloride Level 101mmol/L (98-107) Carbon Dioxide Level 29mmol/L (21-32) Anion Gap 11 (6-14) Blood Urea Nitrogen 10mg/dL (7-20) Creatinine 1.0mg/dL (0.6-1.0) Estimated GFR (Cockcroft-Gault) 60.5 Glucose Level 481mg/dL (70-99) Calcium Level 9.2mg/dL (8.5-10.1) Magnesium Level 1.7mg/dL (1.8-2.4) Total Bilirubin 0.3mg/dL (0.2-1.0) Direct Bilirubin 0.1mg/dL (0.0-0.2) Aspartate Amino Transf (AST/SGOT) 21U/L (15-37) Alanine Aminotransferase (ALT/SGPT) 15U/L (14-59) Alkaline Phosphatase 95U/L (46-116) Creatine Kinase 46U/L (26-192) Creatine Kinase MB (Mass) < 0.5ng/mL (0.0-3.6) Creatine Kinase MB Relative Index 1.1% (0-4) Troponin I Quantitative < 0.017ng/mL (0.000-0.055) MW-Gyi-F-Type Natriuretic Peptide 173pg/mL (0-124) Total Protein 7.9g/dL (6.4-8.2) Albumin 3.4g/dL (3.4-5.0) Glucose (Fingerstick) 501mg/dL (70-99) 430mg/dL (70-99) Test 10/30/16 11:06 10/30/16 14:10 10/30/16 16:59 Glucose (Fingerstick) 483mg/dL (70-99) 261mg/dL (70-99) Triglycerides Level 194mg/dL (0-150) Cholesterol Level 135mg/dL (0-200) LDL Cholesterol, Calculated 70mg/dL (0-100) VLDL Cholesterol, Calculated 39mg/dL (0-40) HDL Cholesterol 26mg/dL (40-60) Cholesterol/HDL Ratio 5.2 Medications Active Scripts Medications Dose Route/Sig Days Date Category Aspirin Ec (Aspirin) 81 Mg Tablet.dr 81 Mg PO DAILY 10/30/16 Reported Nystatin 15 Gm Cream..g. 1 [place] TP BID 10 08/08/16 Rx Ambien (Zolpidem Tartrate) 5 Mg Tablet 5 Mg PO PRN QHS PRN 08/08/16 Rx [place] 5-325 Tablet (Acetaminophen/Hydrocodone Bitart) 1 Each Tablet 1-2 Tab PO Q4-6HRS 11/13/16 Rx Gabapentin 800 Mg Tablet 800 Mg PO TID 07/28/16 Reported Victoza 3-[place] (Liraglutide) 0.6 Mg/0.1 Ml Pen.injctr 1.8 Mg SQ DAILY 07/28/16 Reported Omeprazole 40 Mg Capsule.dr 40 Mg PO DAILY 07/28/16 Reported Cyclobenzaprine Hcl 10 Mg Tablet 10 Mg PO TID 07/28/16 Reported Iron (Ferrous Sulfate) 325 Mg Tablet 325 Mg PO DAILY 07/28/16 Reported Valium (Diazepam) 5 Mg Tablet 5 Mg PO DAILY 07/28/16 Reported Lexapro (Escitalopram Oxalate) 5 Mg Tablet 5 Mg PO DAILY 07/28/16 Reported Fexofenadine Hcl 180 Mg Tablet 180 Mg PO DAILY 07/28/16 Reported Albuterol Sulfate Conc Neb Soln (Albuterol Sulfate) 2.5 Mg/0.5 Ml Vial.neb 2.5 Mg NEB Q4HRS PRN 07/28/16 Reported Simvastatin 40 Mg Tablet 40 Mg PO HS 07/28/16 Reported Diltiazem 24HR Cd (Diltiazem Hcl) 120 Mg Cap.er.24h 120 Mg PO DAILY 07/28/16 Reported Symbicort 160-4.5 Mcg Inhaler (Budesonide/Formoterol Fumarate) 10.2 Gm Hfa.aer.ad 2 Puff IH BID 07/28/16 Reported Novolog (Insulin Aspart) 100 Unit/1 Ml Cartridge 27 Unit SQ TIDAC 10/02/14 Reported Lantus (Insulin Glargine,Hum.rec.anlog) 100 Unit/1 Ml Vial 70 Unit SQ HS 10/02/14 Reported Impression . CLINICAL PNEUMONIA AGREE WITH CURRENT RX THANKS GUMARO PYLE MD Oct 30, 2016 19:24
[2016-10-30] MEDS: BUDESONIDE 0.5 MG/2 ML NEBU NEB SCH (20:18)
[2016-10-30] MEDS: SIMVASTATIN 40 MG TABLET. PO SCH (21:33)
[2016-10-30] MEDS: INSULIN DETEMIR 300 UNITS/3 ML INSULN.PEN. SQ SCH (21:42)
[2016-10-30] MEDS: ZOLPIDEM 5 MG TABLET. PO PRN (21:44)
[2016-10-30 23:25] VITALS: BP 136/62
[2016-10-31] VITALS (16 sets, daily range): BP systolic 82–107; BP diastolic 50–62
[2016-10-31] MEDS: CIPROFLOXACIN 400MG PREMIX 200 ML IV SCH ×3 (00:19→21:09)
[2016-10-31] MEDS: PIPERACILLIN/TAZOBACTAM 4.5 GM in IV NORMAL SALINE 100ML 100 ML IV SCH ×3 (01:42→17:59)
[2016-10-31] MEDS: HYDROCODONE/APAP 5/325MG TABLET. PO PRN (03:43)
[2016-10-31] MEDS: VANCOMYCIN 1.5 GM in IV NORMAL SALINE 500ML BAG 500 ML IV SCH ×2 (04:44→17:59)
--- NOTE | 2016-10-31 06:16 | CONS ---
DATE OF CONSULTATION: 10/30/2016 ATTENDING PHYSICIAN: Dr. Tyshawn Man. CONSULTING PHYSICIAN: Dr. Gumaro Pyle. REASON FOR CONSULTATION: The patient was seen in pulmonary consultation at the request of Dr. Man for increasing shortness of air. HISTORY OF PRESENT ILLNESS: The patient is a 41-year-old female who presented with cough, shortness of breath, weakness. Chest x-ray was reviewed. There is cardiomegaly. I do not appreciate any infiltrates. She was admitted. I was asked to see her in consultation. She denies shaking chills. PAST MEDICAL HISTORY: Asthma, AFib, depression, diabetes, hyperlipidemia, hypertension, neuropathy. PAST SURGICAL HISTORY: Hysterectomy. ALLERGIES: CARBIDOPA. FAMILY HISTORY: Diabetes. SOCIAL HISTORY: She denies any alcohol or tobacco. REVIEW OF SYSTEMS: As indicated above, otherwise, a 10-point system was reviewed and negative. PHYSICAL EXAMINATION: GENERAL: The patient was in no respiratory distress. VITAL SIGNS: Stable. O2 saturation greater than 92%. HEENT: Eyes, the sclerae were nonicteric. NECK: Jugular venous distention was not elevated. No lymphadenopathy. CHEST: Full expansion. LUNGS: Adequate airway flow, no wheezes. CARDIOVASCULAR: Regular rate and rhythm with S1, S2, no S3. ABDOMEN: Soft, nontender, nondistended. EXTREMITIES: No clubbing, cyanosis or edema. LABORATORY DATA: Reviewed. White count was normal. Influenza screen was negative. IMPRESSION: 1. Clinical pneumonia. 2. Acute exacerbation of asthma. 3. Chronic atrial fibrillation. PLAN: 1. Continue current IV antibiotics. 2. Nebulized treatments. 3. IV fluids. I do appreciate the privilege in sharing in the patient's care. GUMARO PYLE MD DR: DAVIDA/dylan JOB#: [id number] / [id number]
[2016-10-31] MEDS: IPRATRPIUM/ALBUTEROL 0.5/2.5MG 3 ML NEBU. NEB SCH (07:06)
[2016-10-31] MEDS: BUDESONIDE 0.5 MG/2 ML NEBU NEB SCH ×2 (07:06→18:45)
--- NOTE | 2016-10-31 07:10 | EKG ---
[facility] [address] [place] [address] Test Date: 2016-10-31 Test Time: 07:02:11 Pat Name: ARLEN CHÁVEZ Department: Room: 588 1 Gender: F Electron Gun Inspector: : 1975 Requested By: CRISTY POSEY Order Number: [id number] Reading MD: Harshal Lal Measurements Intervals [place] Rate: 96 P: 16 SC: 136 QRS: -14 QRSD: 76 T: 17 QT: 356 QTc: 456 Interpretive Statements SINUS RHYTHM Electronically Signed On 11-02-2016 14:33:49 REGULATORY ADMINISTRATOR by Harshal aLl
[2016-10-31 07:30] LABS: HCO3 ABG 23 mmol/L (21-28); PCO2 ABG 48 mmHg (35-46); PO2 ABG 201 mmHg (75-108)
[2016-10-31] MEDS: INSULIN ASPART 300 UNITS/3 ML INSULN.PEN SQ SCH ×3 (07:30→16:30)
[2016-10-31] MEDS: PANTOPRAZOLE 40 MG TABLET. PO SCH (07:30)
[2016-10-31 07:33] LABS: FIO2 ABG 9 lpm nc
[2016-10-31 07:56] LABS: BASO # 0.1 x10^3/uL (0.0-0.2); BASO % 1 % (0-3); EOS % 0 % (0-3); HEMATOCRIT 25.4 % (36.0-47.0); HEMOGLOBIN 7.5 g/dL (12.0-15.5); LYMPH # 0.8 x10^3/uL (1.0-4.8); LYMPH % 10 % (24-48); MEAN CORPUSCULAR HEMOGLOBIN 23 pg (25-35); MEAN CORPUSCULAR HGB CONC 30 g/dL (31-37); MEAN CORPUSCULAR VOLUME 79 fL (79-100); MONO % 5 % (0-9); NEUT % 85 % (31-73); PLATELET COUNT 250 x10^3/uL (140-400); RED BLOOD COUNT 3.22 x10^6/uL (3.50-5.40); RED CELL DISTRIBUTION WIDTH 19.4 % (11.5-14.5); WHITE BLOOD COUNT 8.6 x10^3/uL (4.0-11.0)
[2016-10-31] MEDS: ASPIRIN ENTERIC COATED 81 MG TABLET.DR. PO SCH (08:00)
[2016-10-31] MEDS ORDERED: IV NORMAL SALINE 500ML BAG 500 ML IV ONE (08:30)
--- NOTE | 2016-10-31 08:40 | PDOC ---
Infectious Disease Note Vital Sign Vital Signs Vital Signs Date Time Temp Pulse Resp B/P Pulse Ox O2 Delivery O2 Flow Rate FiO2 10/31/16 07:07 100 Nasal Cannula 9.0 10/31/16 04:46 99.7 99.7 10/31/16 03:00 65 18 104/56 Labs Lab Laboratory Tests Test 10/30/16 11:06 10/30/16 14:10 10/30/16 16:59 10/30/16 20:56 Glucose (Fingerstick) 483mg/dL (70-99) 261mg/dL (70-99) 128mg/dL (70-99) Triglycerides Level 194mg/dL (0-150) Cholesterol Level 135mg/dL (0-200) LDL Cholesterol, Calculated 70mg/dL (0-100) VLDL Cholesterol, Calculated 39mg/dL (0-40) HDL Cholesterol 26mg/dL (40-60) Cholesterol/HDL Ratio 5.2 Test 10/31/16 06:36 10/31/16 07:20 10/31/16 07:33 10/31/16 07:40 Glucose (Fingerstick) 384mg/dL (70-99) 366mg/dL (70-99) O2 Saturation % (92-99) Arterial Blood pH 7.30 (7.35-7.45) Arterial Blood pCO2 at Patient Temp 48mmHg (35-46) Arterial Blood pO2 at Patient Temp 201mmHg (75-108) Arterial Blood HCO3 23mmol/L (21-28) Arterial Blood Base Excess -4mmol/L (-3-3) FiO2 9 lpm nc White Blood Count 8.6x10^3/uL (4.0-11.0) Red Blood Count 3.22x10^6/uL (3.50-5.40) Hemoglobin 7.5g/dL (12.0-15.5) Hematocrit 25.4% (36.0-47.0) Mean Corpuscular Volume 79fL (79-100) Mean Corpuscular Hemoglobin 23pg (25-35) Mean Corpuscular Hemoglobin Concent 30g/dL (31-37) Red Cell Distribution Width 19.4% (11.5-14.5) Platelet Count 250x10^3/uL (140-400) Neutrophils (%) (Auto) 85% (31-73) Lymphocytes (%) (Auto) 10% (24-48) Monocytes (%) (Auto) 5% (0-9) Eosinophils (%) (Auto) 0% (0-3) Basophils (%) (Auto) 1% (0-3) Neutrophils # (Auto) 7.2x10^3uL (1.8-7.7) Lymphocytes # (Auto) 0.8x10^3/uL (1.0-4.8) Monocytes # (Auto) 0.4x10^3/uL (0.0-1.1) Eosinophils # (Auto) 0.0x10^3/uL (0.0-0.7) Basophils # (Auto) 0.1x10^3/uL (0.0-0.2) Lactic Acid Level 1.4mmol/L (0.4-2.0) Troponin I Quantitative < 0.017ng/mL (0.000-0.055) Objective Assessment Fever Hypotension Change in MS ? sec to meds Recent hysterectomy Recent UTI Plan Plan of Care get CT chest, abd and pelvis hold all sedating meds cont broad coverage supportive care fluids MARSHALL CHAVES MD Oct 31, 2016 08:40
[2016-10-31 08:45] LABS: CALCIUM 7.9 mg/dL (8.5-10.1); CREATININE 1.6 mg/dL (0.6-1.0); GFR 35.2; POTASSIUM 4.7 mmol/L (3.5-5.1)
[2016-10-31] MEDS: DILTIAZEM HCL 120 MG CAP.ER.24H PO SCH (09:00)
[2016-10-31] MEDS: CYCLOBENZAPRINE 10 MG TABLET. PO SCH ×3 (09:00→21:00)
[2016-10-31] MEDS: LISINOPRIL 10 MG TABLET PO SCH (09:00)
[2016-10-31] MEDS: GABAPENTIN 400 MG CAPSULE. PO SCH ×3 (09:00→21:00)
[2016-10-31] MEDS: FAMOTIDINE 20 MG TABLET. PO SCH ×2 (09:00→21:00)
[2016-10-31] MEDS ORDERED: IOHEXOL 240 MG/ML 50ML VIAL. PO ONE (09:00)
[2016-10-31] MEDS: DIAZEPAM 5 MG TABLET PO SCH (09:00)
[2016-10-31] MEDS ORDERED: NON FORMULARY ITEM (Liraglutide (Victoza 3-Pak) 1.8 MG) SQ SCH (09:00)
[2016-10-31] MEDS ORDERED: CONTRAST GIVEN MC PRN (09:15)
--- NOTE | 2016-10-31 10:40 | PDOC ---
DALTON GUDINO PEDIATRIC DENTAL ASSISTANT 10/31/16 1039: CARDIO Progress Notes Date and Time Date of Service 10/31/2016 Time of Evaluation 1010 Subjective Subjective: No Chest Pain, No shortness of breath, No Palpitations, No Dizziness, Other (feels tired) Vitals Vitals Vital Signs Date Time Temp Pulse Resp B/P Pulse Ox O2 Delivery O2 Flow Rate FiO2 10/31/16 09:00 99/51 10/31/16 09:00 93 10/31/16 07:07 100 Nasal Cannula 9.0 10/31/16 04:46 99.7 99.7 10/31/16 03:00 18 Weight Weight [ ] Input and Output Intake and Output Intake and Output 10/31/16 07:00 Intake Total 920 ml Output Total 0 ml Balance 920 ml Intake Oral 920 ml Output Urine Total 0 ml # Voids 1 Laboratory Labs Laboratory Tests Test 10/30/16 11:06 10/30/16 14:10 10/30/16 16:59 10/30/16 20:56 Glucose (Fingerstick) 483mg/dL (70-99) 261mg/dL (70-99) 128mg/dL (70-99) Triglycerides Level 194mg/dL (0-150) Cholesterol Level 135mg/dL (0-200) LDL Cholesterol, Calculated 70mg/dL (0-100) VLDL Cholesterol, Calculated 39mg/dL (0-40) HDL Cholesterol 26mg/dL (40-60) Cholesterol/HDL Ratio 5.2 Test 10/31/16 06:36 10/31/16 07:20 10/31/16 07:33 10/31/16 07:40 Glucose (Fingerstick) 384mg/dL (70-99) 366mg/dL (70-99) O2 Saturation % (92-99) Arterial Blood pH 7.30 (7.35-7.45) Arterial Blood pCO2 at Patient Temp 48mmHg (35-46) Arterial Blood pO2 at Patient Temp 201mmHg (75-108) Arterial Blood HCO3 23mmol/L (21-28) Arterial Blood Base Excess -4mmol/L (-3-3) FiO2 9 lpm nc White Blood Count 8.6x10^3/uL (4.0-11.0) Red Blood Count 3.22x10^6/uL (3.50-5.40) Hemoglobin 7.5g/dL (12.0-15.5) Hematocrit 25.4% (36.0-47.0) Mean Corpuscular Volume 79fL (79-100) Mean Corpuscular Hemoglobin 23pg (25-35) Mean Corpuscular Hemoglobin Concent 30g/dL (31-37) Red Cell Distribution Width 19.4% (11.5-14.5) Platelet Count 250x10^3/uL (140-400) Neutrophils (%) (Auto) 85% (31-73) Lymphocytes (%) (Auto) 10% (24-48) Monocytes (%) (Auto) 5% (0-9) Eosinophils (%) (Auto) 0% (0-3) Basophils (%) (Auto) 1% (0-3) Neutrophils # (Auto) 7.2x10^3uL (1.8-7.7) Lymphocytes # (Auto) 0.8x10^3/uL (1.0-4.8) Monocytes # (Auto) 0.4x10^3/uL (0.0-1.1) Eosinophils # (Auto) 0.0x10^3/uL (0.0-0.7) Basophils # (Auto) 0.1x10^3/uL (0.0-0.2) Sodium Level 143mmol/L (136-145) Potassium Level 4.7mmol/L (3.5-5.1) Chloride Level 106mmol/L (98-107) Carbon Dioxide Level 26mmol/L (21-32) Anion Gap 11 (6-14) Blood Urea Nitrogen 13mg/dL (7-20) Creatinine 1.6mg/dL (0.6-1.0) Estimated GFR (Cockcroft-Gault) 35.2 Glucose Level 362mg/dL (70-99) Lactic Acid Level 1.4mmol/L (0.4-2.0) Calcium Level 7.9mg/dL (8.5-10.1) Troponin I Quantitative < 0.017ng/mL (0.000-0.055) Microbiology Micro Microbiology 10/30/16 Blood Culture - Preliminary, Resulted NO GROWTH AFTER 1 DAY Physical Exam HEENT: Neck Supple W Full Motion Chest: Symmetric LUNGS: Other (bibasilar crackles, diminshed) Heart: S1S2, RRR Abdomen: Soft N/T Extremities: No Calf Tenderness Neurology: alert, oriented, follow commands Assessment Assessment 1. PAFIB: SR/ST, no afib episodes 2. Pneumonia: continues to have fever 3. Microcytic hypochromic anemia: Hgb from 9.6 to 7.5 overnight with hypotension , acute bleed? 4. Recent YESY/BSO 10/12/2016 5. Uncontrolled DM2: initially BG 502, remains in 300s 6. CAD: no anginal symptoms. stable. TTE with EF preserved with normal wall motion 7. Hypoxic encephalopathy: likely respiratory depression with notable flexeril/ norco/ambien- no narcan given transferred to ICU Recommendation 1. Continue on cardizem per BP tolerance. Hold ASA, till acute bleed is ruled out. With this change will not be a candidate for NOAC/OAC anytime soon, will reeval as outpt. 2. Reinforced adherence with outpt appointments and treatment regimen 3. Continue with secondary prevention as tolerated. No further cardiac workup warranted. Will follow as needed. 4. Optimize BG control per PCP 5. Pulmonary following 6. Cr 1.0 to 1.6. DC lisinopril for now. IVF, will need modification on #7 meds , will defer further to PCP LUCIA LÓPEZ MD 10/31/16 1702: CARDIO Progress Notes Assessment Assessment Patient seen and examined. Agree with ONLINE BANKING SPECIALIST's assessment and plan. No further episodes of atrial fibrillation on telemetry. CAD status stable. Continue current medications including Cardizem. We will follow as needed. DALTON GUDINO APRN Oct 31, 2016 10:39 LUCIA LÓPEZ MD Oct 31, 2016 17:02
[2016-10-31] MEDS ORDERED: IV 1/2 NORMAL SALINE 1,000 ML IV ONE (11:00)
--- NOTE | 2016-10-31 11:23 | PDOC ---
PULMONARY PROGRESS NOTES Subjective pt had a rapid response this am I was in room and evaluated the pt transferred to ICU for hypotension Vitals Vital Signs Date Time Temp Pulse Resp B/P Pulse Ox O2 Delivery O2 Flow Rate FiO2 10/31/16 09:00 99/51 10/31/16 09:00 93 10/31/16 07:07 100 Nasal Cannula 9.0 10/31/16 04:46 99.7 99.7 10/31/16 03:00 18 General: Lethargic Lungs: Clear Cardiovascular: S1, S2 Abdomen: Soft, Non-tender Extremities: Other Skin: Warm, Dry Labs Laboratory Tests Test 10/29/16 22:54 10/29/16 23:25 10/30/16 02:19 10/30/16 08:29 Influenza Type A Antigen Negative (NEGATIVE) Influenza Type B Antigen Negative (NEGATIVE) White Blood Count 8.1x10^3/uL (4.0-11.0) Red Blood Count 4.03x10^6/uL (3.50-5.40) Hemoglobin 9.6g/dL (12.0-15.5) Hematocrit 31.0% (36.0-47.0) Mean Corpuscular Volume 77fL (79-100) Mean Corpuscular Hemoglobin 24pg (25-35) Mean Corpuscular Hemoglobin Concent 31g/dL (31-37) Red Cell Distribution Width 19.4% (11.5-14.5) Platelet Count 344x10^3/uL (140-400) Neutrophils (%) (Auto) 85% (31-73) Lymphocytes (%) (Auto) 6% (24-48) Monocytes (%) (Auto) 7% (0-9) Eosinophils (%) (Auto) 1% (0-3) Basophils (%) (Auto) 1% (0-3) Neutrophils # (Auto) 6.9x10^3uL (1.8-7.7) Lymphocytes # (Auto) 0.5x10^3/uL (1.0-4.8) Monocytes # (Auto) 0.6x10^3/uL (0.0-1.1) Eosinophils # (Auto) 0.1x10^3/uL (0.0-0.7) Basophils # (Auto) 0.1x10^3/uL (0.0-0.2) Prothrombin Time 13.9SEC (11.7-14.0) Prothromb Time International Ratio 1.1 (0.8-1.1) Sodium Level 141mmol/L (136-145) Potassium Level 3.9mmol/L (3.5-5.1) Chloride Level 101mmol/L (98-107) Carbon Dioxide Level 29mmol/L (21-32) Anion Gap 11 (6-14) Blood Urea Nitrogen 10mg/dL (7-20) Creatinine 1.0mg/dL (0.6-1.0) Estimated GFR (Cockcroft-Gault) 60.5 Glucose Level 481mg/dL (70-99) Calcium Level 9.2mg/dL (8.5-10.1) Magnesium Level 1.7mg/dL (1.8-2.4) Total Bilirubin 0.3mg/dL (0.2-1.0) Direct Bilirubin 0.1mg/dL (0.0-0.2) Aspartate Amino Transf (AST/SGOT) 21U/L (15-37) Alanine Aminotransferase (ALT/SGPT) 15U/L (14-59) Alkaline Phosphatase 95U/L (46-116) Creatine Kinase 46U/L (26-192) Creatine Kinase MB (Mass) < 0.5ng/mL (0.0-3.6) Creatine Kinase MB Relative Index 1.1% (0-4) Troponin I Quantitative < 0.017ng/mL (0.000-0.055) LL-Nim-C-Type Natriuretic Peptide 173pg/mL (0-124) Total Protein 7.9g/dL (6.4-8.2) Albumin 3.4g/dL (3.4-5.0) Glucose (Fingerstick) 501mg/dL (70-99) 430mg/dL (70-99) Test 10/30/16 11:06 10/30/16 14:10 10/30/16 16:59 10/30/16 20:56 Glucose (Fingerstick) 483mg/dL (70-99) 261mg/dL (70-99) 128mg/dL (70-99) Triglycerides Level 194mg/dL (0-150) Cholesterol Level 135mg/dL (0-200) LDL Cholesterol, Calculated 70mg/dL (0-100) VLDL Cholesterol, Calculated 39mg/dL (0-40) HDL Cholesterol 26mg/dL (40-60) Cholesterol/HDL Ratio 5.2 Test 10/31/16 06:36 10/31/16 07:20 10/31/16 07:33 10/31/16 07:40 Glucose (Fingerstick) 384mg/dL (70-99) 366mg/dL (70-99) O2 Saturation % (92-99) Arterial Blood pH 7.30 (7.35-7.45) Arterial Blood pCO2 at Patient Temp 48mmHg (35-46) Arterial Blood pO2 at Patient Temp 201mmHg (75-108) Arterial Blood HCO3 23mmol/L (21-28) Arterial Blood Base Excess -4mmol/L (-3-3) FiO2 9 lpm nc White Blood Count 8.6x10^3/uL (4.0-11.0) Red Blood Count 3.22x10^6/uL (3.50-5.40) Hemoglobin 7.5g/dL (12.0-15.5) Hematocrit 25.4% (36.0-47.0) Mean Corpuscular Volume 79fL (79-100) Mean Corpuscular Hemoglobin 23pg (25-35) Mean Corpuscular Hemoglobin Concent 30g/dL (31-37) Red Cell Distribution Width 19.4% (11.5-14.5) Platelet Count 250x10^3/uL (140-400) Neutrophils (%) (Auto) 85% (31-73) Lymphocytes (%) (Auto) 10% (24-48) Monocytes (%) (Auto) 5% (0-9) Eosinophils (%) (Auto) 0% (0-3) Basophils (%) (Auto) 1% (0-3) Neutrophils # (Auto) 7.2x10^3uL (1.8-7.7) Lymphocytes # (Auto) 0.8x10^3/uL (1.0-4.8) Monocytes # (Auto) 0.4x10^3/uL (0.0-1.1) Eosinophils # (Auto) 0.0x10^3/uL (0.0-0.7) Basophils # (Auto) 0.1x10^3/uL (0.0-0.2) Sodium Level 143mmol/L (136-145) Potassium Level 4.7mmol/L (3.5-5.1) Chloride Level 106mmol/L (98-107) Carbon Dioxide Level 26mmol/L (21-32) Anion Gap 11 (6-14) Blood Urea Nitrogen 13mg/dL (7-20) Creatinine 1.6mg/dL (0.6-1.0) Estimated GFR (Cockcroft-Gault) 35.2 Glucose Level 362mg/dL (70-99) Lactic Acid Level 1.4mmol/L (0.4-2.0) Calcium Level 7.9mg/dL (8.5-10.1) Troponin I Quantitative < 0.017ng/mL (0.000-0.055) Laboratory Tests Test 10/30/16 14:10 10/30/16 16:59 10/30/16 20:56 10/31/16 06:36 Triglycerides Level 194mg/dL (0-150) Cholesterol Level 135mg/dL (0-200) LDL Cholesterol, Calculated 70mg/dL (0-100) VLDL Cholesterol, Calculated 39mg/dL (0-40) HDL Cholesterol 26mg/dL (40-60) Cholesterol/HDL Ratio 5.2 Glucose (Fingerstick) 261mg/dL (70-99) 128mg/dL (70-99) 384mg/dL (70-99) Test 10/31/16 07:20 10/31/16 07:33 10/31/16 07:40 O2 Saturation % (92-99) Arterial Blood pH 7.30 (7.35-7.45) Arterial Blood pCO2 at Patient Temp 48mmHg (35-46) Arterial Blood pO2 at Patient Temp 201mmHg (75-108) Arterial Blood HCO3 23mmol/L (21-28) Arterial Blood Base Excess -4mmol/L (-3-3) FiO2 9 lpm nc Glucose (Fingerstick) 366mg/dL (70-99) White Blood Count 8.6x10^3/uL (4.0-11.0) Red Blood Count 3.22x10^6/uL (3.50-5.40) Hemoglobin 7.5g/dL (12.0-15.5) Hematocrit 25.4% (36.0-47.0) Mean Corpuscular Volume 79fL (79-100) Mean Corpuscular Hemoglobin 23pg (25-35) Mean Corpuscular Hemoglobin Concent 30g/dL (31-37) Red Cell Distribution Width 19.4% (11.5-14.5) Platelet Count 250x10^3/uL (140-400) Neutrophils (%) (Auto) 85% (31-73) Lymphocytes (%) (Auto) 10% (24-48) Monocytes (%) (Auto) 5% (0-9) Eosinophils (%) (Auto) 0% (0-3) Basophils (%) (Auto) 1% (0-3) Neutrophils # (Auto) 7.2x10^3uL (1.8-7.7) Lymphocytes # (Auto) 0.8x10^3/uL (1.0-4.8) Monocytes # (Auto) 0.4x10^3/uL (0.0-1.1) Eosinophils # (Auto) 0.0x10^3/uL (0.0-0.7) Basophils # (Auto) 0.1x10^3/uL (0.0-0.2) Sodium Level 143mmol/L (136-145) Potassium Level 4.7mmol/L (3.5-5.1) Chloride Level 106mmol/L (98-107) Carbon Dioxide Level 26mmol/L (21-32) Anion Gap 11 (6-14) Blood Urea Nitrogen 13mg/dL (7-20) Creatinine 1.6mg/dL (0.6-1.0) Estimated GFR (Cockcroft-Gault) 35.2 Glucose Level 362mg/dL (70-99) Lactic Acid Level 1.4mmol/L (0.4-2.0) Calcium Level 7.9mg/dL (8.5-10.1) Troponin I Quantitative < 0.017ng/mL (0.000-0.055) Medications Active Scripts Medications Dose Route/Sig Days Date Category Aspirin Ec (Aspirin) 81 Mg Tablet.dr 81 Mg PO DAILY 10/30/16 Reported Nystatin 15 Gm Cream..g. 1 [place] TP BID 10 08/08/16 Rx Ambien (Zolpidem Tartrate) 5 Mg Tablet 5 Mg PO PRN QHS PRN 08/08/16 Rx [place] 5-325 Tablet (Acetaminophen/Hydrocodone Bitart) 1 Each Tablet 1-2 Tab PO Q4-6HRS 07/30/16 Rx Gabapentin 800 Mg Tablet 800 Mg PO TID 07/28/16 Reported Victoza 3-[place] (Liraglutide) 0.6 Mg/0.1 Ml Pen.injctr 1.8 Mg SQ DAILY 07/28/16 Reported Omeprazole 40 Mg Capsule.dr 40 Mg PO DAILY 07/28/16 Reported Cyclobenzaprine Hcl 10 Mg Tablet 10 Mg PO TID 07/28/16 Reported Iron (Ferrous Sulfate) 325 Mg Tablet 325 Mg PO DAILY 07/28/16 Reported Valium (Diazepam) 5 Mg Tablet 5 Mg PO DAILY 07/28/16 Reported Lexapro (Escitalopram Oxalate) 5 Mg Tablet 5 Mg PO DAILY 07/28/16 Reported Fexofenadine Hcl 180 Mg Tablet 180 Mg PO DAILY 07/28/16 Reported Albuterol Sulfate Conc Neb Soln (Albuterol Sulfate) 2.5 Mg/0.5 Ml Vial.neb 2.5 Mg NEB Q4HRS PRN 07/28/16 Reported Simvastatin 40 Mg Tablet 40 Mg PO HS 07/28/16 Reported Diltiazem 24HR Cd (Diltiazem Hcl) 120 Mg Cap.er.24h 120 Mg PO DAILY 07/28/16 Reported Symbicort 160-4.5 Mcg Inhaler (Budesonide/Formoterol Fumarate) 10.2 Gm Hfa.aer.ad 2 Puff IH BID 07/28/16 Reported Novolog (Insulin Aspart) 100 Unit/1 Ml Cartridge 27 Unit SQ TIDAC 10/02/14 Reported Lantus (Insulin Glargine,Hum.rec.anlog) 100 Unit/1 Ml Vial 70 Unit SQ HS 10/02/14 Reported Impression . 1. Pneumonia 2. Acute exacerbation of asthma. 3. Chronic atrial fibrillation. 4. Sepsis POA with hypotension 5. Met and toxic encephalopathy Plan . Sepsis protocol antibx transfer to ICU hold sedating medication DVT and GI proph TOTAL CCT 30 minutes GUMARO PYLE MD Oct 31, 2016 11:23
--- NOTE | 2016-10-31 11:39 | PDOC ---
PROGRESS NOTES Chief Complaint Chief Complaint 1. Pneumonia 2. Acute exacerbation of asthma. 3. Chronic atrial fibrillation. 4. Sepsis POA with hypotension 5. Metabolic and toxic encephalopathy 6. Medication related mental status changes History of Present Illness History of Present Illness Pt seen after transferred to ICU this AM. Pt drowsy and unable to answer questions or hold a conversation. Rapid response was called this AM with patient being transferred to ICU. Able to ascertain that pt took several medications. Possible a mix of Dolphin, Ambien, and Flexeril. VS currently stable with pt on 2 L NC. BP pressure maintaining. Vitals Vitals Vital Signs Date Time Temp Pulse Resp B/P Pulse Ox O2 Delivery O2 Flow Rate FiO2 10/31/16 09:00 99/51 10/31/16 09:00 93 10/31/16 07:07 100 Nasal Cannula 9.0 10/31/16 04:46 99.7 99.7 10/31/16 03:00 18 Physical Exam General: Alert, Oriented X3, Cooperative, No acute distress Heart: Regular rate, Normal S1, Normal S2, No murmurs Lungs: Clear Abdomen: Soft, No tenderness Extremities: No cyanosis, No edema Skin: No breakdown, No significant lesion Labs LABS Laboratory Tests Test 10/30/16 14:10 10/30/16 16:59 10/30/16 20:56 10/31/16 06:36 Triglycerides Level 194mg/dL (0-150) Cholesterol Level 135mg/dL (0-200) LDL Cholesterol, Calculated 70mg/dL (0-100) VLDL Cholesterol, Calculated 39mg/dL (0-40) HDL Cholesterol 26mg/dL (40-60) Cholesterol/HDL Ratio 5.2 Glucose (Fingerstick) 261mg/dL (70-99) 128mg/dL (70-99) 384mg/dL (70-99) Test 10/31/16 07:20 10/31/16 07:33 10/31/16 07:40 O2 Saturation % (92-99) Arterial Blood pH 7.30 (7.35-7.45) Arterial Blood pCO2 at Patient Temp 48mmHg (35-46) Arterial Blood pO2 at Patient Temp 201mmHg (75-108) Arterial Blood HCO3 23mmol/L (21-28) Arterial Blood Base Excess -4mmol/L (-3-3) FiO2 9 lpm nc Glucose (Fingerstick) 366mg/dL (70-99) White Blood Count 8.6x10^3/uL (4.0-11.0) Red Blood Count 3.22x10^6/uL (3.50-5.40) Hemoglobin 7.5g/dL (12.0-15.5) Hematocrit 25.4% (36.0-47.0) Mean Corpuscular Volume 79fL (79-100) Mean Corpuscular Hemoglobin 23pg (25-35) Mean Corpuscular Hemoglobin Concent 30g/dL (31-37) Red Cell Distribution Width 19.4% (11.5-14.5) Platelet Count 250x10^3/uL (140-400) Neutrophils (%) (Auto) 85% (31-73) Lymphocytes (%) (Auto) 10% (24-48) Monocytes (%) (Auto) 5% (0-9) Eosinophils (%) (Auto) 0% (0-3) Basophils (%) (Auto) 1% (0-3) Neutrophils # (Auto) 7.2x10^3uL (1.8-7.7) Lymphocytes # (Auto) 0.8x10^3/uL (1.0-4.8) Monocytes # (Auto) 0.4x10^3/uL (0.0-1.1) Eosinophils # (Auto) 0.0x10^3/uL (0.0-0.7) Basophils # (Auto) 0.1x10^3/uL (0.0-0.2) Sodium Level 143mmol/L (136-145) Potassium Level 4.7mmol/L (3.5-5.1) Chloride Level 106mmol/L (98-107) Carbon Dioxide Level 26mmol/L (21-32) Anion Gap 11 (6-14) Blood Urea Nitrogen 13mg/dL (7-20) Creatinine 1.6mg/dL (0.6-1.0) Estimated GFR (Cockcroft-Gault) 35.2 Glucose Level 362mg/dL (70-99) Lactic Acid Level 1.4mmol/L (0.4-2.0) Calcium Level 7.9mg/dL (8.5-10.1) Troponin I Quantitative < 0.017ng/mL (0.000-0.055) Review of Systems Review of Systems Complaint of fatigue Complaint of weakness Assessment and Plan Assessmemt and Plan Problems Medical Problems: (1) Healthcare-associated pneumonia Status: Acute (2) Hyperglycemia Status: Acute Assessment: 1. Pneumonia 2. Acute exacerbation of asthma. 3. Chronic atrial fibrillation. 4. Sepsis POA with hypotension 5. Metabolic and toxic encephalopathy 6. Medication related mental status changes Plan: Continue to monitor the patient per ICU Sepsis protocol Monitor vitals, BP, and MAP Continue daily labs- CBC, BMP, BUN, and Cr Continue IVFs at 100 cc/hr Continue broad spectrum IV Abx Await chest CT results Hold on sedating medications Appreciate Pulm, Cards, and ID input and recommendations -Continue O2 at 2 L NC with saturation above 95% -Continue supportive care DW [employer] Problems: Comment Review of Relevant I have reviewed the following items emery (where applicable) has been applied. Labs Laboratory Tests Test 10/29/16 22:54 10/29/16 23:25 10/30/16 02:19 10/30/16 08:29 Influenza Type A Antigen Negative (NEGATIVE) Influenza Type B Antigen Negative (NEGATIVE) White Blood Count 8.1x10^3/uL (4.0-11.0) Red Blood Count 4.03x10^6/uL (3.50-5.40) Hemoglobin 9.6g/dL (12.0-15.5) Hematocrit 31.0% (36.0-47.0) Mean Corpuscular Volume 77fL (79-100) Mean Corpuscular Hemoglobin 24pg (25-35) Mean Corpuscular Hemoglobin Concent 31g/dL (31-37) Red Cell Distribution Width 19.4% (11.5-14.5) Platelet Count 344x10^3/uL (140-400) Neutrophils (%) (Auto) 85% (31-73) Lymphocytes (%) (Auto) 6% (24-48) Monocytes (%) (Auto) 7% (0-9) Eosinophils (%) (Auto) 1% (0-3) Basophils (%) (Auto) 1% (0-3) Neutrophils # (Auto) 6.9x10^3uL (1.8-7.7) Lymphocytes # (Auto) 0.5x10^3/uL (1.0-4.8) Monocytes # (Auto) 0.6x10^3/uL (0.0-1.1) Eosinophils # (Auto) 0.1x10^3/uL (0.0-0.7) Basophils # (Auto) 0.1x10^3/uL (0.0-0.2) Prothrombin Time 13.9SEC (11.7-14.0) Prothromb Time International Ratio 1.1 (0.8-1.1) Sodium Level 141mmol/L (136-145) Potassium Level 3.9mmol/L (3.5-5.1) Chloride Level 101mmol/L (98-107) Carbon Dioxide Level 29mmol/L (21-32) Anion Gap 11 (6-14) Blood Urea Nitrogen 10mg/dL (7-20) Creatinine 1.0mg/dL (0.6-1.0) Estimated GFR (Cockcroft-Gault) 60.5 Glucose Level 481mg/dL (70-99) Calcium Level 9.2mg/dL (8.5-10.1) Magnesium Level 1.7mg/dL (1.8-2.4) Total Bilirubin 0.3mg/dL (0.2-1.0) Direct Bilirubin 0.1mg/dL (0.0-0.2) Aspartate Amino Transf (AST/SGOT) 21U/L (15-37) Alanine Aminotransferase (ALT/SGPT) 15U/L (14-59) Alkaline Phosphatase 95U/L (46-116) Creatine Kinase 46U/L (26-192) Creatine Kinase MB (Mass) < 0.5ng/mL (0.0-3.6) Creatine Kinase MB Relative Index 1.1% (0-4) Troponin I Quantitative < 0.017ng/mL (0.000-0.055) BQ-Toh-K-Type Natriuretic Peptide 173pg/mL (0-124) Total Protein 7.9g/dL (6.4-8.2) Albumin 3.4g/dL (3.4-5.0) Glucose (Fingerstick) 501mg/dL (70-99) 430mg/dL (70-99) Test 10/30/16 11:06 10/30/16 14:10 10/30/16 16:59 10/30/16 20:56 Glucose (Fingerstick) 483mg/dL (70-99) 261mg/dL (70-99) 128mg/dL (70-99) Triglycerides Level 194mg/dL (0-150) Cholesterol Level 135mg/dL (0-200) LDL Cholesterol, Calculated 70mg/dL (0-100) VLDL Cholesterol, Calculated 39mg/dL (0-40) HDL Cholesterol 26mg/dL (40-60) Cholesterol/HDL Ratio 5.2 Test 10/31/16 06:36 10/31/16 07:20 10/31/16 07:33 10/31/16 07:40 Glucose (Fingerstick) 384mg/dL (70-99) 366mg/dL (70-99) O2 Saturation % (92-99) Arterial Blood pH 7.30 (7.35-7.45) Arterial Blood pCO2 at Patient Temp 48mmHg (35-46) Arterial Blood pO2 at Patient Temp 201mmHg (75-108) Arterial Blood HCO3 23mmol/L (21-28) Arterial Blood Base Excess -4mmol/L (-3-3) FiO2 9 lpm nc White Blood Count 8.6x10^3/uL (4.0-11.0) Red Blood Count 3.22x10^6/uL (3.50-5.40) Hemoglobin 7.5g/dL (12.0-15.5) Hematocrit 25.4% (36.0-47.0) Mean Corpuscular Volume 79fL (79-100) Mean Corpuscular Hemoglobin 23pg (25-35) Mean Corpuscular Hemoglobin Concent 30g/dL (31-37) Red Cell Distribution Width 19.4% (11.5-14.5) Platelet Count 250x10^3/uL (140-400) Neutrophils (%) (Auto) 85% (31-73) Lymphocytes (%) (Auto) 10% (24-48) Monocytes (%) (Auto) 5% (0-9) Eosinophils (%) (Auto) 0% (0-3) Basophils (%) (Auto) 1% (0-3) Neutrophils # (Auto) 7.2x10^3uL (1.8-7.7) Lymphocytes # (Auto) 0.8x10^3/uL (1.0-4.8) Monocytes # (Auto) 0.4x10^3/uL (0.0-1.1) Eosinophils # (Auto) 0.0x10^3/uL (0.0-0.7) Basophils # (Auto) 0.1x10^3/uL (0.0-0.2) Sodium Level 143mmol/L (136-145) Potassium Level 4.7mmol/L (3.5-5.1) Chloride Level 106mmol/L (98-107) Carbon Dioxide Level 26mmol/L (21-32) Anion Gap 11 (6-14) Blood Urea Nitrogen 13mg/dL (7-20) Creatinine 1.6mg/dL (0.6-1.0) Estimated GFR (Cockcroft-Gault) 35.2 Glucose Level 362mg/dL (70-99) Lactic Acid Level 1.4mmol/L (0.4-2.0) Calcium Level 7.9mg/dL (8.5-10.1) Troponin I Quantitative < 0.017ng/mL (0.000-0.055) Laboratory Tests Test 10/30/16 14:10 10/30/16 16:59 10/30/16 20:56 10/31/16 06:36 Triglycerides Level 194mg/dL (0-150) Cholesterol Level 135mg/dL (0-200) LDL Cholesterol, Calculated 70mg/dL (0-100) VLDL Cholesterol, Calculated 39mg/dL (0-40) HDL Cholesterol 26mg/dL (40-60) Cholesterol/HDL Ratio 5.2 Glucose (Fingerstick) 261mg/dL (70-99) 128mg/dL (70-99) 384mg/dL (70-99) Test 10/31/16 07:20 10/31/16 07:33 10/31/16 07:40 O2 Saturation % (92-99) Arterial Blood pH 7.30 (7.35-7.45) Arterial Blood pCO2 at Patient Temp 48mmHg (35-46) Arterial Blood pO2 at Patient Temp 201mmHg (75-108) Arterial Blood HCO3 23mmol/L (21-28) Arterial Blood Base Excess -4mmol/L (-3-3) FiO2 9 lpm nc Glucose (Fingerstick) 366mg/dL (70-99) White Blood Count 8.6x10^3/uL (4.0-11.0) Red Blood Count 3.22x10^6/uL (3.50-5.40) Hemoglobin 7.5g/dL (12.0-15.5) Hematocrit 25.4% (36.0-47.0) Mean Corpuscular Volume 79fL (79-100) Mean Corpuscular Hemoglobin 23pg (25-35) Mean Corpuscular Hemoglobin Concent 30g/dL (31-37) Red Cell Distribution Width 19.4% (11.5-14.5) Platelet Count 250x10^3/uL (140-400) Neutrophils (%) (Auto) 85% (31-73) Lymphocytes (%) (Auto) 10% (24-48) Monocytes (%) (Auto) 5% (0-9) Eosinophils (%) (Auto) 0% (0-3) Basophils (%) (Auto) 1% (0-3) Neutrophils # (Auto) 7.2x10^3uL (1.8-7.7) Lymphocytes # (Auto) 0.8x10^3/uL (1.0-4.8) Monocytes # (Auto) 0.4x10^3/uL (0.0-1.1) Eosinophils # (Auto) 0.0x10^3/uL (0.0-0.7) Basophils # (Auto) 0.1x10^3/uL (0.0-0.2) Sodium Level 143mmol/L (136-145) Potassium Level 4.7mmol/L (3.5-5.1) Chloride Level 106mmol/L (98-107) Carbon Dioxide Level 26mmol/L (21-32) Anion Gap 11 (6-14) Blood Urea Nitrogen 13mg/dL (7-20) Creatinine 1.6mg/dL (0.6-1.0) Estimated GFR (Cockcroft-Gault) 35.2 Glucose Level 362mg/dL (70-99) Lactic Acid Level 1.4mmol/L (0.4-2.0) Calcium Level 7.9mg/dL (8.5-10.1) Troponin I Quantitative < 0.017ng/mL (0.000-0.055) Microbiology 10/30/16 Blood Culture - Preliminary, Resulted NO GROWTH AFTER 1 DAY Medications Current Medications Sodium Chloride 10 ml 10 ml QSHIFT PRN IV AFTER MEDS AND BLOOD DRAWS; Start 09/02 at 23:30 Sodium Chloride (Iv Sodium Chloride 0.9% 500ml Bag) 500 ml @ 500 mls/hr 1X ONCE IV Last administered on 10/29/16 23:43; Start 10/29/16 at 23:45; Stop at 00:44; Status DC Albuterol/ Ipratropium 3 ml 3 ml 1X ONCE NEB Last administered on 10/30/16 00 :31; Start 10/30/16 at 00:15; Stop 10/30/16 at 00:57; Status DC Piperacillin Sod/ Tazobactam Sod 3.375 gm/Sodium Chloride 50 ml @ 100 mls/hr 1X ONCE IV Last administered on 10/30/16 02:38; Start 10/30/16 at 01:00; Stop 10/30/16 at 01:29; Status DC Ciprofloxacin Lactate (Cipro 400mg Premix) 200 ml @ 200 mls/hr 1X ONCE IV Last administered on 10/30/16 03:35; Start 10/30/16 at 01:30; Stop 10/30/16 at 02:29; Status DC Vancomycin HCl (Vanco Per Pharmacy) 1 each PRN DAILY PRN MC SEE COMMENTS Last administered on 10/30/16 10:11; Start 10/30/16 at 00:30 Albuterol/ Ipratropium (Duoneb) 3 ml RTQID NEB Last administered on 10/31/16 07:06; Start 10/30/16 at 08:00; Stop 10/31/16 at 07:59; Status DC Piperacillin Sod/ Tazobactam Sod 1 each 1 each PRN DAILY PRN MC SEE COMMENTS; Start 10/30/16 at 00:30 Ciprofloxacin Lactate (Cipro 400mg Premix) 200 ml @ 200 mls/hr Q12HR IV Last administered on 10/31/16 00:19; Start 10/30/16 at 21:00 Famotidine (Pepcid) 20 mg BID PO Last administered on 10/30/16 21:33; Start at 02:00 Insulin Human Regular 10 unit 10 unit 1X ONCE IV Last administered on 02:33; Start 10/30/16 at 01:00; Stop 10/30/16 at 01:01; Status DC Vancomycin HCl 2 gm/Sodium Chloride 500 ml @ 250 mls/hr 1X ONCE IV Last administered on 10/30/16 04:56; Start 10/30/16 at 05:00; Stop 10/30/16 at 06:59 ; Status DC Piperacillin Sod/ Tazobactam Sod/ Sodium Chloride (Zosyn/Iv Sodium Chloride 0.9 % 100ml) 100 ml @ 200 mls/hr Q6HRS IV Last administered on 10/31/16 01:42; Start 10/30/16 at 08:00 Promethazine HCl/ Codeine (Phenergan With Codeine) 5 ml PRN Q4HRS PRN PO COUGH Last administered on 10/30/16 21:44; Start 10/30/16 at 10:15 Acetaminophen/ Hydrocodone Bitart 1 tab 1 tab PRN Q4HRS PRN PO PAIN Last administered on 10/30/16 10:30; Start 10/30/16 at 10:15; Stop 10/30/16 at 11:31 ; Status DC Vancomycin HCl/ Sodium Chloride (Iv Sodium Chloride 0.9% 500ml Bag) 500 ml @ 250 mls/hr Q12H IV Last administered on 10/31/16 04:44; Start 10/30/16 at 17: 00 Vancomycin HCl 1 each 1X ONCE MC ; Start 10/31/16 at 16:30; Stop 10/31/16 at 16 :31 Cyclobenzaprine HCl (Flexeril) 10 mg TID PO Last administered on 10/30/16 21: 33; Start 10/30/16 at 14:00 Diazepam (Valium) 5 mg DAILY PO Last administered on 10/30/16 13:20; Start at 12:30 Diltiazem HCl (Cardizem 24hr Cd) 120 mg DAILY PO Last administered on 13:19; Start 10/30/16 at 12:30 Escitalopram Oxalate (Lexapro) 5 mg DAILY PO Last administered on 2/13/17at 13: 18; Start 10/30/16 at 12:30 Ferrous Sulfate (Feosol) 325 mg DAILY PO ; Start 10/30/16 at 12:30 Acetaminophen/ Hydrocodone Bitart (Lortab 5/325) 1 tab PRN QID PRN PO PAIN; Start 10/30/16 at 11:30 Nystatin (Mycostatin) 1 vianney BID TP ; Start 10/30/16 at 12:30 Simvastatin (Zocor) 40 mg HS PO Last administered on 10/30/16 21:33; Start at 21:00 Zolpidem Tartrate (Ambien) 5 mg PRN QHS PRN PO INSOMNIA Last administered on 21:44; Start 10/30/16 at 11:30 Albuterol Sulfate (Ventolin Neb Soln) 2.5 mg PRN Q4HRS PRN NEB SHORTNESS OF BREATH; Start 10/30/16 at 11:45 Budesonide (Pulmicort) 0.5 mg RTBID NEB Last administered on 10/31/16 07:06; Start 10/30/16 at 20:00 Non-Formulary Medication 500 mg QID PO ; Start 10/30/16 at 13:00; Stop 10/30/16 at 13:00; Status DC Cetirizine HCl (Zyrtec) 10 mg DAILY PO ; Start 10/30/16 at 12:30 Gabapentin (Neurontin) 800 mg TID PO Last administered on 10/30/16 21:33; Start 10/30/16 at 14:00 Insulin Aspart (Novolog) 27 units TIDAC SQ Last administered on 10/30/16 17:17 ; Start 10/30/16 at 12:00 Insulin Detemir (Levemir) 70 units QHS SQ Last administered on 10/30/16 21:42 ; Start 10/30/16 at 21:00 Non-Formulary Medication 1.8 mg DAILY SQ ; Start 10/31/16 at 09:00; Status UNV Pantoprazole Sodium (Protonix) 40 mg DAILYAC PO ; Start 10/30/16 at 12:30 Aspirin (Ecotrin) 81 mg DAILYWBKFT PO ; Start 10/30/16 at 12:30; Stop 10/31/16 at 10:40; Status DC Acetaminophen/ Hydrocodone Bitart (Lortab 5/325) 2 tab PRN QID PRN PO PAIN Last administered on 10/31/16 03:43; Start 10/30/16 at 11:45 Lisinopril (Prinivil) 10 mg DAILY PO Last administered on 10/30/16 17:13; Start 10/30/16 at 17:00; Stop 10/31/16 at 10:37; Status DC Throat Lozenges 1 abena 1 abena PRN Q2HRS PRN PO SORE THROAT; Start 10/30/16 at 18: 15 Sodium Chloride (Iv Sodium Chloride 0.9% 500ml Bag) 500 ml @ 500 mls/hr 1X ONCE IV Last administered on 10/31/16 08:00; Start 10/31/16 at 08:30; Stop at 09:29; Status DC Iohexol (Omnipaque 240 Mg/ml) 30 ml 1X ONCE PO Last administered on 10/31/16 09:00; Start 10/31/16 at 09:00; Stop 10/31/16 at 09:03; Status DC Info 1 each 1 each PRN DAILY PRN MC SEE COMMENTS; Start 10/31/16 at 09:15; Stop 11/02/16 at 09:14 Sodium Chloride (Iv Sodium Chloride 0.45%) 1,000 ml @ 125 mls/hr 1X ONCE IV ; Start 10/31/16 at 11:00; Stop 10/31/16 at 18:59 Active Scripts Active Nystatin 15 Gm Cream..g. 1 Vianney TP BID 10 Days Ambien (Zolpidem Tartrate) 5 Mg Tablet 5 Mg PO PRN QHS PRN Dolphin 5-325 Tablet (Acetaminophen/Hydrocodone Bitart) 1 Each Tablet 1-2 Tab PO Q4-6HRS Reported Aspirin Ec (Aspirin) 81 Mg Tablet. 81 Mg PO DAILY Gabapentin 800 Mg Tablet 800 Mg PO TID Victoza 3-[place] (Liraglutide) 0.6 Mg/0.1 Ml Pen.injctr 1.8 Mg SQ DAILY Omeprazole 40 Mg Capsule.dr 40 Mg PO DAILY Cyclobenzaprine Hcl 10 Mg Tablet 10 Mg PO TID Iron (Ferrous Sulfate) 325 Mg Tablet 325 Mg PO DAILY Valium (Diazepam) 5 Mg Tablet 5 Mg PO DAILY Lexapro (Escitalopram Oxalate) 5 Mg Tablet 5 Mg PO DAILY Fexofenadine Hcl 180 Mg Tablet 180 Mg PO DAILY Albuterol Sulfate Conc Neb Soln (Albuterol Sulfate) 2.5 Mg/0.5 Ml Vial.neb 2.5 Mg NEB Q4HRS PRN Simvastatin 40 Mg Tablet 40 Mg PO HS Diltiazem 24HR Cd (Diltiazem Hcl) 120 Mg Cap.er.24h 120 Mg PO DAILY Symbicort 160-4.5 Mcg Inhaler (Budesonide/Formoterol Fumarate) 10.2 Gm Hfa.aer.ad 2 Puff IH BID Novolog (Insulin Aspart) 100 Unit/1 Ml Cartridge 27 Unit SQ TIDAC Lantus (Insulin Glargine,Hum.rec.anlog) 100 Unit/1 Ml Vial 70 Unit SQ HS Vitals/I & O Vital Sign - Last 24 Hours 10/30/16 10/30/16 10/30/16 10/30/16 12:20 13:19 15:00 16:35 Temp 101.5 101.5 Pulse 118 111 Resp 18 B/P 151/82 155/83 Pulse Ox 94 94 O2 Delivery Nasal Cannula Nasal Cannula Nasal Cannula O2 Flow Rate 2.0 2.0 2.0 10/30/16 10/30/16 10/30/16 10/30/16 17:13 19:00 20:00 20:18 Temp 99.9 99.9 Pulse 111 100 Resp 18 B/P 155/83 160/80 Pulse Ox 94 99 O2 Delivery Nasal Cannula Room Air Nasal Cannula O2 Flow Rate 2.0 2.0 10/30/16 10/30/16 10/31/16 10/31/16 20:21 23:25 03:00 04:46 Temp 99.9 100.9 99.7 99.9 100.9 99.7 Pulse 109 65 Resp 18 18 B/P 136/62 104/56 Pulse Ox 99 99 96 O2 Delivery Nasal Cannula Nasal Cannula Room Air O2 Flow Rate 2.0 2.0 2.0 10/31/16 10/31/16 10/31/16 07:07 09:00 09:00 Pulse 93 B/P 99/51 99/51 Pulse Ox 100 O2 Delivery Nasal Cannula O2 Flow Rate 9.0 Intake and Output 10/30/16 10/30/16 10/31/16 15:00 23:00 07:00 Intake Total 240 ml 480 ml 200 ml Output Total 0 ml Balance 240 ml 480 ml 200 ml MEDHAT LARSON III DO Oct 31, 2016 11:39
[2016-10-31] MEDS: FERROUS SULFATE 325 MG TABLET PO SCH (14:27)
[2016-10-31] MEDS: ESCITALOPRAM 5 MG TABLET. PO SCH (14:27)
[2016-10-31] MEDS: CETIRIZINE HCL 10 MG TABLET PO SCH (14:27)
[2016-10-31] MEDS: NYSTATIN 100,000 UNIT/GM TOPICAL CREAM 15GM TUBE. TP SCH ×2 (14:28→21:09)
--- NOTE | 2016-10-31 14:28 | RAD ---
CT of the chest, abdomen and pelvis without contrast, 10/31/2016: History: Fever, cervical cancer Only oral contrast material was administered as requested. The heart is mildly enlarged. The thoracic aorta is of normal caliber. No mediastinal adenopathy is seen. Parahilar infiltrates seen on the previous study from 08/01/2016 have resolved. There is mild atelectasis posteriorly in both lower lobes. No significant pleural fluid is seen. The liver is of lower than normal density in a diffuse pattern compatible with fatty change. It is enlarged measuring 26 cm in craniocaudad extent. No mass or bile duct dilatation is evident. The gallbladder is unremarkable. No pancreatic abnormality is seen. The spleen is within normal limits in size. There is mild bilateral renal cortical scarring. The kidneys show no evidence of obstruction. The abdominal aorta is of normal caliber. No abdominal or pelvic adenopathy is seen. The uterus is surgically absent. The bowel loops are not dilated. There is mild streaky increased density in the intra-abdominal fat in the pelvic region. There are several small bubbles of gas present related to the anterior abdominal wall at the midline in the pelvic region, presumably due to recent surgery. There is mild subcutaneous edema in the overlying soft tissues at this level. No discrete fluid collection is seen to suggest abscess. IMPRESSION: 1. Mild bibasilar atelectasis. 2. Hepatomegaly with hepatic steatosis. 3. Tiny gas bubbles related to the anterior abdominal wall at the mid pelvic level presumably on a postsurgical basis. There is adjacent streaky inflammation in the subcutaneous fat and within the pelvis, without evidence of a discrete abscess.
[2016-10-31] MEDS: VANCOMYCIN PER PHARMACY MC PRN (18:13)
[2016-10-31] MEDS: SIMVASTATIN 40 MG TABLET. PO SCH (21:00)
[2016-10-31] MEDS: INSULIN DETEMIR 300 UNITS/3 ML INSULN.PEN. SQ SCH (21:10)
[2016-11-01] VITALS (19 sets, daily range): BP systolic 90–110; BP diastolic 46–71
[2016-11-01] MEDS: HYDROCODONE/APAP 5/325MG TABLET. PO PRN ×2 (00:55→09:31)
[2016-11-01] MEDS: PIPERACILLIN/TAZOBACTAM 4.5 GM in IV NORMAL SALINE 100ML 100 ML IV SCH ×5 (01:44→23:37)
[2016-11-01] MEDS: VANCOMYCIN 1.5 GM in IV NORMAL SALINE 500ML BAG 500 ML IV SCH ×2 (04:23→18:12)
--- NOTE | 2016-11-01 05:28 | CONS ---
DATE OF CONSULTATION: 10/31/2016 REQUESTING PHYSICIAN: Dr. Man. REASON FOR CONSULTATION: Possible sepsis. HISTORY OF PRESENT ILLNESS: This is a 41-year-old female who in September had hysterectomy, who comes back with a 2-day history of not feeling well, dizziness, some nausea, fell and hit the head, although does not think that she passed out. The patient was admitted with "pneumonia," although chest x-ray had no infiltrate. The patient did have fever and the patient now transferred to ICU with hypotension and change in mental status. The patient is arousable. The patient does open eyes, able to answer appropriately, although while talking, she dozes off. The patient did take Ambien as well as her Percocet that she takes and it is unclear whether she took her own medications from her purse. Some extra medications were found. The patient's blood pressure responded to fluids. The patient's blood pressure is stable. The patient has been initiated on vancomycin, Zosyn and Cipro and consult has been requested. The patient is in ICU. She is arousable, lethargic, able to answer appropriately, dozes off while talking. No vomiting and diarrhea noted. Denies any chest pain. Denies any abdominal pain. Denies any shortness of breath. PAST MEDICAL HISTORY: Positive for recent hysterectomy, also has coronary artery disease, hypertension, hyperlipidemia, atrial fibrillation, peripheral neuropathy, anemia, osteoarthritis, and depression. SOCIAL HISTORY: Negative for smoking, alcohol, illicit drug use. ALLERGIES: Listed as allergic to CARBIDOPA. CURRENT MEDICATIONS: Reviewed. REVIEW OF SYSTEMS: As per HPI, all other systems reviewed and are negative. PHYSICAL EXAMINATION: GENERAL: Lethargic female, not in any distress. VITAL SIGNS: Stable. Temperature 99.7 with T-max 101.5. Rest of vitals are stable. HEENT: NAD. NECK: Supple, no JVP, no lymphadenopathy. LUNGS: Clear. HEART: S1, S2 regular. ABDOMEN: Benign. Her hysterectomy incisions are unremarkable. EXTREMITIES: No edema or cyanosis. SKIN: Unremarkable. NEUROLOGIC: The patient does move all the extremities as well as answers appropriately. Neurologically intact, although sleepy. LABORATORY DATA: White count is normal. Platelets are normal. BUN and creatinine is normal. Lactic acid was 1.4. MRSA screen has been negative in the past. Influenza screen at this time negative. Cultures are pending, so far negative blood culture. Chest x-ray did not show any infiltrate. IMPRESSION: 1. Fever, etiology of the fever is unclear, viral illness is still possible like influenza, but hospital-acquired infection needs to be ruled out since she was recently in the hospital. 2. Hypotension, probably related to the dehydration and pain medication. 3. Change in mental status, again, related to the sleeping pill and pain medication. 4. Dizziness and fall. RECOMMENDATION: We would continue broad coverage. We will get CT chest, abdomen and pelvis, supportive care, fluids, hold all the sedating medication and we will continue to follow. Thank you very much, Dr. Man, for giving me the opportunity to participate in this patient's care. MARSHALL CHAVES MD DR: NENO/dylan JOB#: [id number] / [id number]
[2016-11-01 06:55] LABS: BASO % 1 % (0-3); EOS % 0 % (0-3); HEMATOCRIT 22.3 % (36.0-47.0); LYMPH # 1.7 x10^3/uL (1.0-4.8); LYMPH % 44 % (24-48); MEAN CORPUSCULAR HEMOGLOBIN 24 pg (25-35); MEAN CORPUSCULAR HGB CONC 31 g/dL (31-37); MEAN CORPUSCULAR VOLUME 76 fL (79-100); MONO % 11 % (0-9); NEUT % 44 % (31-73); PLATELET COUNT 204 x10^3/uL (140-400); RED BLOOD COUNT 2.92 x10^6/uL (3.50-5.40); RED CELL DISTRIBUTION WIDTH 19.7 % (11.5-14.5); WHITE BLOOD COUNT 3.8 x10^3/uL (4.0-11.0)
[2016-11-01 07:13] LABS: GFR 27.2; POTASSIUM 3.7 mmol/L (3.5-5.1)
[2016-11-01] MEDS: INSULIN ASPART 300 UNITS/3 ML INSULN.PEN SQ SCH ×3 (07:30→16:30)
--- NOTE | 2016-11-01 08:14 | PDOC ---
Infectious Disease Note Subjective Subjective awake, says feeling better ROS ROS no n/v/d/pain Vital Sign Vital Signs Vital Signs Date Time Temp Pulse Resp B/P Pulse Ox O2 Delivery O2 Flow Rate FiO2 11/01/16 06:00 88 17 90/48 97 Nasal Cannula 2.0 11/01/16 04:00 98.8 98.8 Physical Exam PHYSICAL EXAM GENERAL: NAD, Alert HEENT: PERRL, OC/OP NECK: Supple, no JVD, no LN LUNGS: Clear HEART: S1S2, no gallop, no murmur ABD: Soft, NT, no organomegaly, no rebound EXT: No edema, no cyanosis [employer]ATIONS [employer]: Alert, oriented x 3, no focal neurologic deficit SKIN: No rash IV: ok Labs Lab Laboratory Tests Test 10/31/16 08:30 10/31/16 11:34 10/31/16 16:30 10/31/16 17:57 Nasal Screen MRSA (PCR) Negative (Negative) Glucose (Fingerstick) 312mg/dL (70-99) 155mg/dL (70-99) Vancomycin Level Trough 13.6mcg/mL (10.0-20.0) Vancomycin Last Dose Date Unknown Vancomycin Last Dose Time Unknown Test 11/01/16 06:38 White Blood Count 3.8x10^3/uL (4.0-11.0) Red Blood Count 2.92x10^6/uL (3.50-5.40) Hemoglobin 7.0g/dL (12.0-15.5) Hematocrit 22.3% (36.0-47.0) Mean Corpuscular Volume 76fL (79-100) Mean Corpuscular Hemoglobin 24pg (25-35) Mean Corpuscular Hemoglobin Concent 31g/dL (31-37) Red Cell Distribution Width 19.7% (11.5-14.5) Platelet Count 204x10^3/uL (140-400) Neutrophils (%) (Auto) 44% (31-73) Lymphocytes (%) (Auto) 44% (24-48) Monocytes (%) (Auto) 11% (0-9) Eosinophils (%) (Auto) 0% (0-3) Basophils (%) (Auto) 1% (0-3) Neutrophils # (Auto) 1.7x10^3uL (1.8-7.7) Lymphocytes # (Auto) 1.7x10^3/uL (1.0-4.8) Monocytes # (Auto) 0.4x10^3/uL (0.0-1.1) Eosinophils # (Auto) 0.0x10^3/uL (0.0-0.7) Basophils # (Auto) 0.0x10^3/uL (0.0-0.2) Sodium Level 146mmol/L (136-145) Potassium Level 3.7mmol/L (3.5-5.1) Chloride Level 110mmol/L (98-107) Carbon Dioxide Level 26mmol/L (21-32) Anion Gap 10 (6-14) Blood Urea Nitrogen 15mg/dL (7-20) Creatinine 2.0mg/dL (0.6-1.0) Estimated GFR (Cockcroft-Gault) 27.2 Glucose Level 106mg/dL (70-99) Calcium Level 8.0mg/dL (8.5-10.1) Objective Assessment Fever Hypotension Change in MS ? sec to meds Recent hysterectomy Recent UTI Plan Plan of Care CT chest, abd and pelvis noted hold all sedating meds cont broad coverage supportive care fluids MARSHALL CHAVES MD Nov 01, 2016 08:14
[2016-11-01] MEDS: DIAZEPAM 5 MG TABLET PO SCH (09:00)
[2016-11-01] MEDS: DILTIAZEM HCL 120 MG CAP.ER.24H PO SCH (09:00)
[2016-11-01] MEDS: CYCLOBENZAPRINE 10 MG TABLET. PO SCH (09:00)
[2016-11-01] MEDS: FAMOTIDINE 20 MG TABLET. PO SCH (09:00)
[2016-11-01] MEDS ORDERED: ONDANSETRON PF 4 MG/2 ML VIAL. ONE ×2 (09:25)
[2016-11-01] MEDS: GABAPENTIN 400 MG CAPSULE. PO SCH ×3 (09:30→20:53)
[2016-11-01] MEDS: CETIRIZINE HCL 10 MG TABLET PO SCH (09:31)
[2016-11-01] MEDS: ESCITALOPRAM 5 MG TABLET. PO SCH (09:31)
[2016-11-01] MEDS: FERROUS SULFATE 325 MG TABLET PO SCH (09:31)
[2016-11-01] MEDS: PANTOPRAZOLE 40 MG TABLET. PO SCH (09:32)
[2016-11-01] MEDS: NYSTATIN 100,000 UNIT/GM TOPICAL CREAM 15GM TUBE. TP SCH ×2 (09:33→20:53)
[2016-11-01] MEDS: CIPROFLOXACIN 400MG PREMIX 200 ML IV SCH ×2 (09:43→21:38)
[2016-11-01] MEDS: ALBUTEROL SULFATE 2.5 MG/3 ML NEBU. NEB PRN (10:03)
[2016-11-01] MEDS: BUDESONIDE 0.5 MG/2 ML NEBU NEB SCH ×2 (10:03→19:31)
[2016-11-01] MEDS ORDERED: ALPRAZOLAM 0.25 MG TABLET PO PRN (10:30)
[2016-11-01] MEDS ORDERED: IV 1/2 NORMAL SALINE 1,000 ML IV ONE (10:30)
--- NOTE | 2016-11-01 11:22 | PDOC2 ---
CONSULT Date of Consult Date of Consult DATE: 11/01/16 TIME: 11:18 Reason for Consult Reason for Consult: BIGG Identification/Chief Complaint Chief Complaint WEAKNESS Source Source: Chart review, Patient History of Present Illness Reason for Visit: THIS IS A 41 YR OLD ADMITTED TO THE ICU WITH CONCERNS OF SEPSIS. SHE UNDERWENT A HYSTERECTOMY PLUS DUE TO FINDINGS OF CERVICAL CA. POST OP SHE DEVELOPED HYPOTENSION AND THEN WAS TRANSFERRED TO THE ICU. ADMIT CR WAS 1.0 AND NOW IT IS 2.0. NO CKD HX. NO HX OF ANY KIDNEY OR BLADDER SURGERIES HEMATURIA DYSURIA OR FREQUENCY NOTED Past Medical History Cardiovascular: HTN Pulmonary: Pneumonia CENTRAL NERVOUS SYSTEM: Migraine, Periperal neuropathy, Other GI: Constipation Heme/Onc: Iron deficiency Anemia Psych: No pertinent hx Musculoskeletal: Osteoarthritis Rheumatologic: No pertinent hx Infectious disease: No pertinent hx Renal/: No pertinent hx Endocrine: Diabetes Past Surgical History Past Surgical History: Family History Family History: Heart Disease Social History No ALCOHOL: none Drugs: None Lives: with Family Domestic Violence: Neg Current Problem List Problem List Problems Medical Problems: (1) Healthcare-associated pneumonia Status: Acute (2) Hyperglycemia Status: Acute Current Medications Current Medications Current Medications Sodium Chloride 10 ml 10 ml QSHIFT PRN IV AFTER MEDS AND BLOOD DRAWS; Start 09/02 at 23:30 Sodium Chloride (Iv Sodium Chloride 0.9% 500ml Bag) 500 ml @ 500 mls/hr 1X ONCE IV Last administered on 10/29/16 23:43; Start 10/29/16 at 23:45; Stop at 00:44; Status DC Albuterol/ Ipratropium 3 ml 3 ml 1X ONCE NEB Last administered on 10/30/16 00 :31; Start 10/30/16 at 00:15; Stop 10/30/16 at 00:57; Status DC Piperacillin Sod/ Tazobactam Sod 3.375 gm/Sodium Chloride 50 ml @ 100 mls/hr 1X ONCE IV Last administered on 10/30/16 02:38; Start 10/30/16 at 01:00; Stop 10/30/16 at 01:29; Status DC Ciprofloxacin Lactate (Cipro 400mg Premix) 200 ml @ 200 mls/hr 1X ONCE IV Last administered on 10/30/16 03:35; Start 10/30/16 at 01:30; Stop 10/30/16 at 02:29; Status DC Vancomycin HCl (Vanco Per Pharmacy) 1 each PRN DAILY PRN MC SEE COMMENTS Last administered on 10/31/16 18:13; Start 10/30/16 at 00:30 Albuterol/ Ipratropium (Duoneb) 3 ml RTQID NEB Last administered on 10/31/16 07:06; Start 10/30/16 at 08:00; Stop 10/31/16 at 07:59; Status DC Piperacillin Sod/ Tazobactam Sod 1 each 1 each PRN DAILY PRN MC SEE COMMENTS; Start 10/30/16 at 00:30 Ciprofloxacin Lactate (Cipro 400mg Premix) 200 ml @ 200 mls/hr Q12HR IV Last administered on 11/01/16 09:43; Start 10/30/16 at 21:00 Famotidine (Pepcid) 20 mg BID PO Last administered on 10/30/16 21:33; Start at 02:00; Stop 11/01/16 at 09:19; Status DC Insulin Human Regular 10 unit 10 unit 1X ONCE IV Last administered on 02:33; Start 10/30/16 at 01:00; Stop 10/30/16 at 01:01; Status DC Vancomycin HCl 2 gm/Sodium Chloride 500 ml @ 250 mls/hr 1X ONCE IV Last administered on 10/30/16 04:56; Start 10/30/16 at 05:00; Stop 10/30/16 at 06:59 ; Status DC Piperacillin Sod/ Tazobactam Sod/ Sodium Chloride (Zosyn/Iv Sodium Chloride 0.9 % 100ml) 100 ml @ 200 mls/hr Q6HRS IV Last administered on 11/01/16 06:25; Start 10/30/16 at 08:00 Promethazine HCl/ Codeine (Phenergan With Codeine) 5 ml PRN Q4HRS PRN PO COUGH Last administered on 10/30/16 21:44; Start 10/30/16 at 10:15 Acetaminophen/ Hydrocodone Bitart 1 tab 1 tab PRN Q4HRS PRN PO PAIN Last administered on 10/30/16 10:30; Start 10/30/16 at 10:15; Stop 10/30/16 at 11:31 ; Status DC Vancomycin HCl/ Sodium Chloride (Iv Sodium Chloride 0.9% 500ml Bag) 500 ml @ 250 mls/hr Q12H IV Last administered on 11/01/16 04:23; Start 10/30/16 at 17: 00 Vancomycin HCl 1 each 1X ONCE MC Last administered on 10/31/16 16:30; Start 10/31/16 at 16:30; Stop 10/31/16 at 16:31; Status DC Cyclobenzaprine HCl (Flexeril) 10 mg TID PO Last administered on 10/30/16 21: 33; Start 10/30/16 at 14:00; Stop 11/01/16 at 10:21; Status DC Diazepam (Valium) 5 mg DAILY PO Last administered on 10/30/16 13:20; Start at 12:30; Stop 11/01/16 at 10:21; Status DC Diltiazem HCl (Cardizem 24hr Cd) 120 mg DAILY PO Last administered on 13:19; Start 10/30/16 at 12:30 Escitalopram Oxalate (Lexapro) 5 mg DAILY PO Last administered on 11/01/16 09: 31; Start 10/30/16 at 12:30 Ferrous Sulfate (Feosol) 325 mg DAILY PO Last administered on 11/01/16 09:31; Start 10/30/16 at 12:30 Acetaminophen/ Hydrocodone Bitart (Lortab 5/325) 1 tab PRN QID PRN PO PAIN Last administered on 11/01/16 00:55; Start 10/30/16 at 11:30 Nystatin (Mycostatin) 1 vianney BID TP Last administered on 11/01/16 09:33; Start 10/30/16 at 12:30 Simvastatin (Zocor) 40 mg HS PO Last administered on 10/30/16 21:33; Start at 21:00 Zolpidem Tartrate (Ambien) 5 mg PRN QHS PRN PO INSOMNIA Last administered on 21:44; Start 10/30/16 at 11:30 Albuterol Sulfate (Ventolin Neb Soln) 2.5 mg PRN Q4HRS PRN NEB SHORTNESS OF BREATH Last administered on 11/01/16 10:03; Start 10/30/16 at 11:45 Budesonide (Pulmicort) 0.5 mg RTBID NEB Last administered on 11/01/16 10:03; Start 10/30/16 at 20:00 Non-Formulary Medication 500 mg QID PO ; Start 10/30/16 at 13:00; Stop 10/30/16 at 13:00; Status DC Cetirizine HCl (Zyrtec) 10 mg DAILY PO Last administered on 11/01/16 09:31; Start 10/30/16 at 12:30 Gabapentin (Neurontin) 800 mg TID PO Last administered on 11/01/16 09:30; Start 10/30/16 at 14:00 Insulin Aspart (Novolog) 27 units TIDAC SQ Last administered on 10/31/16 13:49 ; Start 10/30/16 at 12:00; Stop 11/01/16 at 10:21; Status DC Insulin Detemir (Levemir) 70 units QHS SQ Last administered on 10/31/16 21:10 ; Start 10/30/16 at 21:00 Non-Formulary Medication 1.8 mg DAILY SQ ; Start 10/31/16 at 09:00; Stop at 07:09; Status DC Pantoprazole Sodium (Protonix) 40 mg DAILYAC PO Last administered on 11/01/16 09:32; Start 10/30/16 at 12:30 Aspirin (Ecotrin) 81 mg DAILYWBKFT PO ; Start 10/30/16 at 12:30; Stop 10/31/16 at 10:40; Status DC Acetaminophen/ Hydrocodone Bitart (Lortab 5/325) 2 tab PRN QID PRN PO PAIN Last administered on 11/01/16 09:31; Start 10/30/16 at 11:45 Lisinopril (Prinivil) 10 mg DAILY PO Last administered on 10/30/16 17:13; Start 10/30/16 at 17:00; Stop 10/31/16 at 10:37; Status DC Throat Lozenges 1 abena 1 abena PRN Q2HRS PRN PO SORE THROAT; Start 10/30/16 at 18: 15 Sodium Chloride (Iv Sodium Chloride 0.9% 500ml Bag) 500 ml @ 500 mls/hr 1X ONCE IV Last administered on 10/31/16 08:00; Start 10/31/16 at 08:30; Stop at 09:29; Status DC Iohexol (Omnipaque 240 Mg/ml) 30 ml 1X ONCE PO Last administered on 10/31/16 09:00; Start 10/31/16 at 09:00; Stop 10/31/16 at 09:03; Status DC Info 1 each 1 each PRN DAILY PRN MC SEE COMMENTS; Start 10/31/16 at 09:15; Stop 11/02/16 at 09:14 Sodium Chloride (Iv Sodium Chloride 0.45%) 1,000 ml @ 125 mls/hr 1X ONCE IV Last administered on 10/31/16 11:24; Start 10/31/16 at 11:00; Stop 10/31/16 at 19:00; Status DC Ondansetron HCl (Zofran) 4 mg STK-MED ONCE .ROUTE ; Start 11/01/16 at 09:25; Stop 11/01/16 at 09:26; Status DC Insulin Aspart (Novolog) 20 units TIDAC SQ ; Start 11/01/16 at 11:30 Alprazolam 0.25 mg 0.25 mg PRN Q8HRS PRN PO ANXIETY / AGITATION; Start at 10:30 Sodium Chloride (Iv Sodium Chloride 0.45%) 1,000 ml @ 75 mls/hr 1X ONCE IV ; Start 11/01/16 at 10:30; Stop 11/01/16 at 23:49 Active Scripts Active Nystatin 15 Gm Cream..g. 1 V[place] TP BID 10 Days Ambien (Zolpidem Tartrate) 5 Mg Tablet 5 Mg PO PRN QHS PRN [place] 5-325 Tablet (Acetaminophen/Hydrocodone Bitart) 1 Each Tablet 1-2 Tab PO Q4-6HRS Reported Aspirin Ec (Aspirin) 81 Mg Tablet. 81 Mg PO DAILY Gabapentin 800 Mg Tablet 800 Mg PO TID Victoza 3-[place] (Liraglutide) 0.6 Mg/0.1 Ml Pen.injctr 1.8 Mg SQ DAILY Omeprazole 40 Mg Capsule. 40 Mg PO DAILY Cyclobenzaprine Hcl 10 Mg Tablet 10 Mg PO TID Iron (Ferrous Sulfate) 325 Mg Tablet 325 Mg PO DAILY Valium (Diazepam) 5 Mg Tablet 5 Mg PO DAILY Lexapro (Escitalopram Oxalate) 5 Mg Tablet 5 Mg PO DAILY Fexofenadine Hcl 180 Mg Tablet 180 Mg PO DAILY Albuterol Sulfate Conc Neb Soln (Albuterol Sulfate) 2.5 Mg/0.5 Ml Vial.neb 2.5 Mg NEB Q4HRS PRN Simvastatin 40 Mg Tablet 40 Mg PO HS Diltiazem 24HR Cd (Diltiazem Hcl) 120 Mg Cap.er.24h 120 Mg PO DAILY Symbicort 160-4.5 Mcg Inhaler (Budesonide/Formoterol Fumarate) 10.2 Gm Hfa.aer.ad 2 Puff IH BID Novolog (Insulin Aspart) 100 Unit/1 Ml Cartridge 27 Unit SQ TIDAC Lantus (Insulin Glargine,Hum.rec.anlog) 100 Unit/1 Ml Vial 70 Unit SQ HS Allergies Allergies: Coded Allergies: carbidopa (Verified Allergy, Intermediate, 10/12/16) ROS General: YES: Fatigue, Malaise PSYCHOLOGICAL ROS: YES: Anxiety Eyes: Yes Decreased vision HEENT: YES: Heacaches Respiratory: YES: Cough Gastrointestinal: Yes Constipation Musculoskeletal: Yes Muscular Weakness Neurological: Yes Weakness Skin: Yes Dry Skin Physical Exam General: Alert, Oriented X3, Cooperative, No acute distress HEENT: Atraumatic, PERRLA, EOMI Lungs: Clear to auscultation, Normal air movement Heart: Regular rate, Normal S1 Abdomen: Normal bowel sounds, Soft, No tenderness Extremities: No cyanosis Skin: No breakdown Neuro: Normal speech, Cranial nerves 3-12 NL Psych/Mental Status: Mental status NL, Mood NL MUSCULOSKELETAL: No deformity, No swelling Vitals VITALS Vital Signs Date Time Temp Pulse Resp B/P Pulse Ox O2 Delivery O2 Flow Rate FiO2 11/01/16 10:04 100 Nasal Cannula 4.0 11/01/16 10:00 94 17 105/59 11/01/16 08:00 97.8 97.8 Labs Labs Laboratory Tests Test 10/30/16 14:10 10/30/16 16:59 10/30/16 20:56 10/31/16 06:36 Triglycerides Level 194mg/dL (0-150) Cholesterol Level 135mg/dL (0-200) LDL Cholesterol, Calculated 70mg/dL (0-100) VLDL Cholesterol, Calculated 39mg/dL (0-40) HDL Cholesterol 26mg/dL (40-60) Cholesterol/HDL Ratio 5.2 Glucose (Fingerstick) 261mg/dL (70-99) 128mg/dL (70-99) 384mg/dL (70-99) Test 10/31/16 07:20 10/31/16 07:33 10/31/16 07:40 10/31/16 08:30 O2 Saturation % (92-99) Arterial Blood pH 7.30 (7.35-7.45) Arterial Blood pCO2 at Patient Temp 48mmHg (35-46) Arterial Blood pO2 at Patient Temp 201mmHg (75-108) Arterial Blood HCO3 23mmol/L (21-28) Arterial Blood Base Excess -4mmol/L (-3-3) FiO2 9 lpm nc Glucose (Fingerstick) 366mg/dL (70-99) White Blood Count 8.6x10^3/uL (4.0-11.0) Red Blood Count 3.22x10^6/uL (3.50-5.40) Hemoglobin 7.5g/dL (12.0-15.5) Hematocrit 25.4% (36.0-47.0) Mean Corpuscular Volume 79fL (79-100) Mean Corpuscular Hemoglobin 23pg (25-35) Mean Corpuscular Hemoglobin Concent 30g/dL (31-37) Red Cell Distribution Width 19.4% (11.5-14.5) Platelet Count 250x10^3/uL (140-400) Neutrophils (%) (Auto) 85% (31-73) Lymphocytes (%) (Auto) 10% (24-48) Monocytes (%) (Auto) 5% (0-9) Eosinophils (%) (Auto) 0% (0-3) Basophils (%) (Auto) 1% (0-3) Neutrophils # (Auto) 7.2x10^3uL (1.8-7.7) Lymphocytes # (Auto) 0.8x10^3/uL (1.0-4.8) Monocytes # (Auto) 0.4x10^3/uL (0.0-1.1) Eosinophils # (Auto) 0.0x10^3/uL (0.0-0.7) Basophils # (Auto) 0.1x10^3/uL (0.0-0.2) Sodium Level 143mmol/L (136-145) Potassium Level 4.7mmol/L (3.5-5.1) Chloride Level 106mmol/L (98-107) Carbon Dioxide Level 26mmol/L (21-32) Anion Gap 11 (6-14) Blood Urea Nitrogen 13mg/dL (7-20) Creatinine 1.6mg/dL (0.6-1.0) Estimated GFR (Cockcroft-Gault) 35.2 Glucose Level 362mg/dL (70-99) Lactic Acid Level 1.4mmol/L (0.4-2.0) Calcium Level 7.9mg/dL (8.5-10.1) Troponin I Quantitative < 0.017ng/mL (0.000-0.055) Nasal Screen MRSA (PCR) Negative (Negative) Test 10/31/16 11:34 10/31/16 16:30 10/31/16 17:57 11/01/16 06:38 Glucose (Fingerstick) 312mg/dL (70-99) 155mg/dL (70-99) Vancomycin Level Trough 13.6mcg/mL (10.0-20.0) Vancomycin Last Dose Date Unknown Vancomycin Last Dose Time Unknown White Blood Count 3.8x10^3/uL (4.0-11.0) Red Blood Count 2.92x10^6/uL (3.50-5.40) Hemoglobin 7.0g/dL (12.0-15.5) Hematocrit 22.3% (36.0-47.0) Mean Corpuscular Volume 76fL (79-100) Mean Corpuscular Hemoglobin 24pg (25-35) Mean Corpuscular Hemoglobin Concent 31g/dL (31-37) Red Cell Distribution Width 19.7% (11.5-14.5) Platelet Count 204x10^3/uL (140-400) Neutrophils (%) (Auto) 44% (31-73) Lymphocytes (%) (Auto) 44% (24-48) Monocytes (%) (Auto) 11% (0-9) Eosinophils (%) (Auto) 0% (0-3) Basophils (%) (Auto) 1% (0-3) Neutrophils # (Auto) 1.7x10^3uL (1.8-7.7) Lymphocytes # (Auto) 1.7x10^3/uL (1.0-4.8) Monocytes # (Auto) 0.4x10^3/uL (0.0-1.1) Eosinophils # (Auto) 0.0x10^3/uL (0.0-0.7) Basophils # (Auto) 0.0x10^3/uL (0.0-0.2) Sodium Level 146mmol/L (136-145) Potassium Level 3.7mmol/L (3.5-5.1) Chloride Level 110mmol/L (98-107) Carbon Dioxide Level 26mmol/L (21-32) Anion Gap 10 (6-14) Blood Urea Nitrogen 15mg/dL (7-20) Creatinine 2.0mg/dL (0.6-1.0) Estimated GFR (Cockcroft-Gault) 27.2 Glucose Level 106mg/dL (70-99) Calcium Level 8.0mg/dL (8.5-10.1) Laboratory Tests Test 10/31/16 11:34 10/31/16 16:30 10/31/16 17:57 11/01/16 06:38 Glucose (Fingerstick) 312mg/dL (70-99) 155mg/dL (70-99) Vancomycin Level Trough 13.6mcg/mL (10.0-20.0) Vancomycin Last Dose Date Unknown Vancomycin Last Dose Time Unknown White Blood Count 3.8x10^3/uL (4.0-11.0) Red Blood Count 2.92x10^6/uL (3.50-5.40) Hemoglobin 7.0g/dL (12.0-15.5) Hematocrit 22.3% (36.0-47.0) Mean Corpuscular Volume 76fL (79-100) Mean Corpuscular Hemoglobin 24pg (25-35) Mean Corpuscular Hemoglobin Concent 31g/dL (31-37) Red Cell Distribution Width 19.7% (11.5-14.5) Platelet Count 204x10^3/uL (140-400) Neutrophils (%) (Auto) 44% (31-73) Lymphocytes (%) (Auto) 44% (24-48) Monocytes (%) (Auto) 11% (0-9) Eosinophils (%) (Auto) 0% (0-3) Basophils (%) (Auto) 1% (0-3) Neutrophils # (Auto) 1.7x10^3uL (1.8-7.7) Lymphocytes # (Auto) 1.7x10^3/uL (1.0-4.8) Monocytes # (Auto) 0.4x10^3/uL (0.0-1.1) Eosinophils # (Auto) 0.0x10^3/uL (0.0-0.7) Basophils # (Auto) 0.0x10^3/uL (0.0-0.2) Sodium Level 146mmol/L (136-145) Potassium Level 3.7mmol/L (3.5-5.1) Chloride Level 110mmol/L (98-107) Carbon Dioxide Level 26mmol/L (21-32) Anion Gap 10 (6-14) Blood Urea Nitrogen 15mg/dL (7-20) Creatinine 2.0mg/dL (0.6-1.0) Estimated GFR (Cockcroft-Gault) 27.2 Glucose Level 106mg/dL (70-99) Calcium Level 8.0mg/dL (8.5-10.1) Assessment/Plan Assessment/Plan IMP BIGG DUE TO ATN HYPOTENSION PLAN MAINTAIN ADEQUATE MAP CONT WITH IVF'S WILL FOLLOW EXPECT FULL RENAL RECOVERY TATE AREVALO MD Nov 01, 2016 11:22
--- NOTE | 2016-11-01 11:42 | PDOC ---
PULMONARY PROGRESS NOTES Subjective PT FEELS BETTER NOT MORE SOA DOES NOT RECALL YESTERDAY EVENTS Vitals Vital Signs Date Time Temp Pulse Resp B/P Pulse Ox O2 Delivery O2 Flow Rate FiO2 11/01/16 10:04 100 Nasal Cannula 4.0 11/01/16 10:00 94 17 105/59 11/01/16 08:00 97.8 97.8 General: Alert, Lethargic Lungs: Clear Cardiovascular: S1, S2 Abdomen: Soft, Non-tender Neuro Exam: Alert Extremities: Other Skin: Warm, Dry Labs Laboratory Tests Test 10/30/16 14:10 10/30/16 16:59 10/30/16 20:56 10/31/16 06:36 Triglycerides Level 194mg/dL (0-150) Cholesterol Level 135mg/dL (0-200) LDL Cholesterol, Calculated 70mg/dL (0-100) VLDL Cholesterol, Calculated 39mg/dL (0-40) HDL Cholesterol 26mg/dL (40-60) Cholesterol/HDL Ratio 5.2 Glucose (Fingerstick) 261mg/dL (70-99) 128mg/dL (70-99) 384mg/dL (70-99) Test 10/31/16 07:20 10/31/16 07:33 10/31/16 07:40 10/31/16 08:30 O2 Saturation % (92-99) Arterial Blood pH 7.30 (7.35-7.45) Arterial Blood pCO2 at Patient Temp 48mmHg (35-46) Arterial Blood pO2 at Patient Temp 201mmHg (75-108) Arterial Blood HCO3 23mmol/L (21-28) Arterial Blood Base Excess -4mmol/L (-3-3) FiO2 9 lpm nc Glucose (Fingerstick) 366mg/dL (70-99) White Blood Count 8.6x10^3/uL (4.0-11.0) Red Blood Count 3.22x10^6/uL (3.50-5.40) Hemoglobin 7.5g/dL (12.0-15.5) Hematocrit 25.4% (36.0-47.0) Mean Corpuscular Volume 79fL (79-100) Mean Corpuscular Hemoglobin 23pg (25-35) Mean Corpuscular Hemoglobin Concent 30g/dL (31-37) Red Cell Distribution Width 19.4% (11.5-14.5) Platelet Count 250x10^3/uL (140-400) Neutrophils (%) (Auto) 85% (31-73) Lymphocytes (%) (Auto) 10% (24-48) Monocytes (%) (Auto) 5% (0-9) Eosinophils (%) (Auto) 0% (0-3) Basophils (%) (Auto) 1% (0-3) Neutrophils # (Auto) 7.2x10^3uL (1.8-7.7) Lymphocytes # (Auto) 0.8x10^3/uL (1.0-4.8) Monocytes # (Auto) 0.4x10^3/uL (0.0-1.1) Eosinophils # (Auto) 0.0x10^3/uL (0.0-0.7) Basophils # (Auto) 0.1x10^3/uL (0.0-0.2) Sodium Level 143mmol/L (136-145) Potassium Level 4.7mmol/L (3.5-5.1) Chloride Level 106mmol/L (98-107) Carbon Dioxide Level 26mmol/L (21-32) Anion Gap 11 (6-14) Blood Urea Nitrogen 13mg/dL (7-20) Creatinine 1.6mg/dL (0.6-1.0) Estimated GFR (Cockcroft-Gault) 35.2 Glucose Level 362mg/dL (70-99) Lactic Acid Level 1.4mmol/L (0.4-2.0) Calcium Level 7.9mg/dL (8.5-10.1) Troponin I Quantitative < 0.017ng/mL (0.000-0.055) Nasal Screen MRSA (PCR) Negative (Negative) Test 10/31/16 11:34 10/31/16 16:30 10/31/16 17:57 11/01/16 06:38 Glucose (Fingerstick) 312mg/dL (70-99) 155mg/dL (70-99) Vancomycin Level Trough 13.6mcg/mL (10.0-20.0) Vancomycin Last Dose Date Unknown Vancomycin Last Dose Time Unknown White Blood Count 3.8x10^3/uL (4.0-11.0) Red Blood Count 2.92x10^6/uL (3.50-5.40) Hemoglobin 7.0g/dL (12.0-15.5) Hematocrit 22.3% (36.0-47.0) Mean Corpuscular Volume 76fL (79-100) Mean Corpuscular Hemoglobin 24pg (25-35) Mean Corpuscular Hemoglobin Concent 31g/dL (31-37) Red Cell Distribution Width 19.7% (11.5-14.5) Platelet Count 204x10^3/uL (140-400) Neutrophils (%) (Auto) 44% (31-73) Lymphocytes (%) (Auto) 44% (24-48) Monocytes (%) (Auto) 11% (0-9) Eosinophils (%) (Auto) 0% (0-3) Basophils (%) (Auto) 1% (0-3) Neutrophils # (Auto) 1.7x10^3uL (1.8-7.7) Lymphocytes # (Auto) 1.7x10^3/uL (1.0-4.8) Monocytes # (Auto) 0.4x10^3/uL (0.0-1.1) Eosinophils # (Auto) 0.0x10^3/uL (0.0-0.7) Basophils # (Auto) 0.0x10^3/uL (0.0-0.2) Sodium Level 146mmol/L (136-145) Potassium Level 3.7mmol/L (3.5-5.1) Chloride Level 110mmol/L (98-107) Carbon Dioxide Level 26mmol/L (21-32) Anion Gap 10 (6-14) Blood Urea Nitrogen 15mg/dL (7-20) Creatinine 2.0mg/dL (0.6-1.0) Estimated GFR (Cockcroft-Gault) 27.2 Glucose Level 106mg/dL (70-99) Calcium Level 8.0mg/dL (8.5-10.1) Laboratory Tests Test 10/31/16 16:30 10/31/16 17:57 11/01/16 06:38 Vancomycin Level Trough 13.6mcg/mL (10.0-20.0) Vancomycin Last Dose Date Unknown Vancomycin Last Dose Time Unknown Glucose (Fingerstick) 155mg/dL (70-99) White Blood Count 3.8x10^3/uL (4.0-11.0) Red Blood Count 2.92x10^6/uL (3.50-5.40) Hemoglobin 7.0g/dL (12.0-15.5) Hematocrit 22.3% (36.0-47.0) Mean Corpuscular Volume 76fL (79-100) Mean Corpuscular Hemoglobin 24pg (25-35) Mean Corpuscular Hemoglobin Concent 31g/dL (31-37) Red Cell Distribution Width 19.7% (11.5-14.5) Platelet Count 204x10^3/uL (140-400) Neutrophils (%) (Auto) 44% (31-73) Lymphocytes (%) (Auto) 44% (24-48) Monocytes (%) (Auto) 11% (0-9) Eosinophils (%) (Auto) 0% (0-3) Basophils (%) (Auto) 1% (0-3) Neutrophils # (Auto) 1.7x10^3uL (1.8-7.7) Lymphocytes # (Auto) 1.7x10^3/uL (1.0-4.8) Monocytes # (Auto) 0.4x10^3/uL (0.0-1.1) Eosinophils # (Auto) 0.0x10^3/uL (0.0-0.7) Basophils # (Auto) 0.0x10^3/uL (0.0-0.2) Sodium Level 146mmol/L (136-145) Potassium Level 3.7mmol/L (3.5-5.1) Chloride Level 110mmol/L (98-107) Carbon Dioxide Level 26mmol/L (21-32) Anion Gap 10 (6-14) Blood Urea Nitrogen 15mg/dL (7-20) Creatinine 2.0mg/dL (0.6-1.0) Estimated GFR (Cockcroft-Gault) 27.2 Glucose Level 106mg/dL (70-99) Calcium Level 8.0mg/dL (8.5-10.1) Medications Active Scripts Medications Dose Route/Sig Days Date Category Aspirin Ec (Aspirin) 81 Mg Tablet.dr 81 Mg PO DAILY 10/30/16 Reported Nystatin 15 Gm Cream..g. 1 [place] TP BID 10 08/08/16 Rx Ambien (Zolpidem Tartrate) 5 Mg Tablet 5 Mg PO PRN QHS PRN 08/08/16 Rx [place] 5-325 Tablet (Acetaminophen/Hydrocodone Bitart) 1 Each Tablet 1-2 Tab PO Q4-6HRS 07/30/16 Rx Gabapentin 800 Mg Tablet 800 Mg PO TID 07/28/16 Reported Victoza 3-[place] (Liraglutide) 0.6 Mg/0.1 Ml Pen.injctr 1.8 Mg SQ DAILY 07/28/16 Reported Omeprazole 40 Mg Capsule.dr 40 Mg PO DAILY 07/28/16 Reported Cyclobenzaprine Hcl 10 Mg Tablet 10 Mg PO TID 07/28/16 Reported Iron (Ferrous Sulfate) 325 Mg Tablet 325 Mg PO DAILY 07/28/16 Reported Valium (Diazepam) 5 Mg Tablet 5 Mg PO DAILY 07/28/16 Reported Lexapro (Escitalopram Oxalate) 5 Mg Tablet 5 Mg PO DAILY 07/28/16 Reported Fexofenadine Hcl 180 Mg Tablet 180 Mg PO DAILY 07/28/16 Reported Albuterol Sulfate Conc Neb Soln (Albuterol Sulfate) 2.5 Mg/0.5 Ml Vial.neb 2.5 Mg NEB Q4HRS PRN 07/28/16 Reported Simvastatin 40 Mg Tablet 40 Mg PO HS 07/28/16 Reported Diltiazem 24HR Cd (Diltiazem Hcl) 120 Mg Cap.er.24h 120 Mg PO DAILY 07/28/16 Reported Symbicort 160-4.5 Mcg Inhaler (Budesonide/Formoterol Fumarate) 10.2 Gm Hfa.aer.ad 2 Puff IH BID 07/28/16 Reported Novolog (Insulin Aspart) 100 Unit/1 Ml Cartridge 27 Unit SQ TIDAC 10/02/14 Reported Lantus (Insulin Glargine,Hum.rec.anlog) 100 Unit/1 Ml Vial 70 Unit SQ HS 10/02/14 Reported Impression . 1. Pneumonia 2. Acute exacerbation of asthma. 3. Chronic atrial fibrillation. 4. Sepsis POA with hypotension 5. Met and toxic encephalopathy Plan . Ence has improved Sepsis protocol antibx hold sedating medication DVT and GI proph may transfer out of ICU GUMARO PYLE MD Nov 01, 2016 11:42
[2016-11-01] MEDS ORDERED: PIP/TAZO PER PHARMACY MC PRN (13:15)
[2016-11-01] MEDS ORDERED: GUAIFENESIN 200 MG/10 ML LIQUID. PO PRN (13:15)
--- NOTE | 2016-11-01 13:16 | PDOC ---
PROGRESS NOTES Chief Complaint Chief Complaint 1. Pneumonia, sepsis 2. Acute exacerbation of asthma. 3. rapid on Chronic atrial fibrillation. 4. Sepsis POA with hypotension 5. Metabolic and toxic encephalopathy 6. Medication related mental status changes 7. anemia, 2/2 dilutional + recent history 8. BIGG , vasomotor plan: 1. fu with pulm, card, id get renal consult 2. 1u PRBC transfusion 3. ivf given low po intake 4. decrease insulin 5. add cough meds dc valium, flexiril, add xanax prn ok to transfer out of ICU dvt ppx check iron, ferritin, fa, vitb12, FOBT History of Present Illness History of Present Illness Pt seen after transferred to ICU 10/31. Pt drowsy and unable to answer questions or hold a conversation. Rapid response was called this AM with patient being transferred to ICU. Able to ascertain that pt took several sedative medications. Possible a mix of Valera, Ambien, and Flexeril. VS currently stable with pt on 2 L NC. BP pressure maintaining. pt still cough a lot, but feels sob slightly better, hb 7 Cr 2 from 1 Vitals Vitals Vital Signs Date Time Temp Pulse Resp B/P Pulse Ox O2 Delivery O2 Flow Rate FiO2 11/01/16 11:00 89 18 106/61 99 Room Air 11/01/16 10:04 4.0 11/01/16 08:00 97.8 97.8 Physical Exam General: Alert, Oriented X3, Cooperative, No acute distress Heart: Regular rate, Normal S1 Lungs: Clear Abdomen: Normal bowel sounds, Soft, No tenderness Extremities: No cyanosis Skin: No breakdown Labs LABS Laboratory Tests Test 10/31/16 16:30 10/31/16 17:57 11/01/16 06:38 11/01/16 12:54 Vancomycin Level Trough 13.6mcg/mL (10.0-20.0) Vancomycin Last Dose Date Unknown Vancomycin Last Dose Time Unknown Glucose (Fingerstick) 155mg/dL (70-99) 122mg/dL (70-99) White Blood Count 3.8x10^3/uL (4.0-11.0) Red Blood Count 2.92x10^6/uL (3.50-5.40) Hemoglobin 7.0g/dL (12.0-15.5) Hematocrit 22.3% (36.0-47.0) Mean Corpuscular Volume 76fL (79-100) Mean Corpuscular Hemoglobin 24pg (25-35) Mean Corpuscular Hemoglobin Concent 31g/dL (31-37) Red Cell Distribution Width 19.7% (11.5-14.5) Platelet Count 204x10^3/uL (140-400) Neutrophils (%) (Auto) 44% (31-73) Lymphocytes (%) (Auto) 44% (24-48) Monocytes (%) (Auto) 11% (0-9) Eosinophils (%) (Auto) 0% (0-3) Basophils (%) (Auto) 1% (0-3) Neutrophils # (Auto) 1.7x10^3uL (1.8-7.7) Lymphocytes # (Auto) 1.7x10^3/uL (1.0-4.8) Monocytes # (Auto) 0.4x10^3/uL (0.0-1.1) Eosinophils # (Auto) 0.0x10^3/uL (0.0-0.7) Basophils # (Auto) 0.0x10^3/uL (0.0-0.2) Sodium Level 146mmol/L (136-145) Potassium Level 3.7mmol/L (3.5-5.1) Chloride Level 110mmol/L (98-107) Carbon Dioxide Level 26mmol/L (21-32) Anion Gap 10 (6-14) Blood Urea Nitrogen 15mg/dL (7-20) Creatinine 2.0mg/dL (0.6-1.0) Estimated GFR (Cockcroft-Gault) 27.2 Glucose Level 106mg/dL (70-99) Calcium Level 8.0mg/dL (8.5-10.1) Review of Systems Review of Systems no fever, chills, sob or chest pain Assessment and Plan Assessmemt and Plan Problems Medical Problems: (1) Healthcare-associated pneumonia Status: Acute (2) Hyperglycemia Status: Acute Problems: Comment Review of Relevant I have reviewed the following items emery (where applicable) has been applied. Labs Laboratory Tests Test 10/30/16 14:10 10/30/16 16:59 10/30/16 20:56 10/31/16 06:36 Triglycerides Level 194mg/dL (0-150) Cholesterol Level 135mg/dL (0-200) LDL Cholesterol, Calculated 70mg/dL (0-100) VLDL Cholesterol, Calculated 39mg/dL (0-40) HDL Cholesterol 26mg/dL (40-60) Cholesterol/HDL Ratio 5.2 Glucose (Fingerstick) 261mg/dL (70-99) 128mg/dL (70-99) 384mg/dL (70-99) Test 10/31/16 07:20 10/31/16 07:33 10/31/16 07:40 10/31/16 08:30 O2 Saturation % (92-99) Arterial Blood pH 7.30 (7.35-7.45) Arterial Blood pCO2 at Patient Temp 48mmHg (35-46) Arterial Blood pO2 at Patient Temp 201mmHg (75-108) Arterial Blood HCO3 23mmol/L (21-28) Arterial Blood Base Excess -4mmol/L (-3-3) FiO2 9 lpm nc Glucose (Fingerstick) 366mg/dL (70-99) White Blood Count 8.6x10^3/uL (4.0-11.0) Red Blood Count 3.22x10^6/uL (3.50-5.40) Hemoglobin 7.5g/dL (12.0-15.5) Hematocrit 25.4% (36.0-47.0) Mean Corpuscular Volume 79fL (79-100) Mean Corpuscular Hemoglobin 23pg (25-35) Mean Corpuscular Hemoglobin Concent 30g/dL (31-37) Red Cell Distribution Width 19.4% (11.5-14.5) Platelet Count 250x10^3/uL (140-400) Neutrophils (%) (Auto) 85% (31-73) Lymphocytes (%) (Auto) 10% (24-48) Monocytes (%) (Auto) 5% (0-9) Eosinophils (%) (Auto) 0% (0-3) Basophils (%) (Auto) 1% (0-3) Neutrophils # (Auto) 7.2x10^3uL (1.8-7.7) Lymphocytes # (Auto) 0.8x10^3/uL (1.0-4.8) Monocytes # (Auto) 0.4x10^3/uL (0.0-1.1) Eosinophils # (Auto) 0.0x10^3/uL (0.0-0.7) Basophils # (Auto) 0.1x10^3/uL (0.0-0.2) Sodium Level 143mmol/L (136-145) Potassium Level 4.7mmol/L (3.5-5.1) Chloride Level 106mmol/L (98-107) Carbon Dioxide Level 26mmol/L (21-32) Anion Gap 11 (6-14) Blood Urea Nitrogen 13mg/dL (7-20) Creatinine 1.6mg/dL (0.6-1.0) Estimated GFR (Cockcroft-Gault) 35.2 Glucose Level 362mg/dL (70-99) Lactic Acid Level 1.4mmol/L (0.4-2.0) Calcium Level 7.9mg/dL (8.5-10.1) Troponin I Quantitative < 0.017ng/mL (0.000-0.055) Nasal Screen MRSA (PCR) Negative (Negative) Test 10/31/16 11:34 10/31/16 16:30 10/31/16 17:57 11/01/16 06:38 Glucose (Fingerstick) 312mg/dL (70-99) 155mg/dL (70-99) Vancomycin Level Trough 13.6mcg/mL (10.0-20.0) Vancomycin Last Dose Date Unknown Vancomycin Last Dose Time Unknown White Blood Count 3.8x10^3/uL (4.0-11.0) Red Blood Count 2.92x10^6/uL (3.50-5.40) Hemoglobin 7.0g/dL (12.0-15.5) Hematocrit 22.3% (36.0-47.0) Mean Corpuscular Volume 76fL (79-100) Mean Corpuscular Hemoglobin 24pg (25-35) Mean Corpuscular Hemoglobin Concent 31g/dL (31-37) Red Cell Distribution Width 19.7% (11.5-14.5) Platelet Count 204x10^3/uL (140-400) Neutrophils (%) (Auto) 44% (31-73) Lymphocytes (%) (Auto) 44% (24-48) Monocytes (%) (Auto) 11% (0-9) Eosinophils (%) (Auto) 0% (0-3) Basophils (%) (Auto) 1% (0-3) Neutrophils # (Auto) 1.7x10^3uL (1.8-7.7) Lymphocytes # (Auto) 1.7x10^3/uL (1.0-4.8) Monocytes # (Auto) 0.4x10^3/uL (0.0-1.1) Eosinophils # (Auto) 0.0x10^3/uL (0.0-0.7) Basophils # (Auto) 0.0x10^3/uL (0.0-0.2) Sodium Level 146mmol/L (136-145) Potassium Level 3.7mmol/L (3.5-5.1) Chloride Level 110mmol/L (98-107) Carbon Dioxide Level 26mmol/L (21-32) Anion Gap 10 (6-14) Blood Urea Nitrogen 15mg/dL (7-20) Creatinine 2.0mg/dL (0.6-1.0) Estimated GFR (Cockcroft-Gault) 27.2 Glucose Level 106mg/dL (70-99) Calcium Level 8.0mg/dL (8.5-10.1) Test 11/01/16 12:54 Glucose (Fingerstick) 122mg/dL (70-99) Laboratory Tests Test 10/31/16 16:30 10/31/16 17:57 11/01/16 06:38 11/01/16 12:54 Vancomycin Level Trough 13.6mcg/mL (10.0-20.0) Vancomycin Last Dose Date Unknown Vancomycin Last Dose Time Unknown Glucose (Fingerstick) 155mg/dL (70-99) 122mg/dL (70-99) White Blood Count 3.8x10^3/uL (4.0-11.0) Red Blood Count 2.92x10^6/uL (3.50-5.40) Hemoglobin 7.0g/dL (12.0-15.5) Hematocrit 22.3% (36.0-47.0) Mean Corpuscular Volume 76fL (79-100) Mean Corpuscular Hemoglobin 24pg (25-35) Mean Corpuscular Hemoglobin Concent 31g/dL (31-37) Red Cell Distribution Width 19.7% (11.5-14.5) Platelet Count 204x10^3/uL (140-400) Neutrophils (%) (Auto) 44% (31-73) Lymphocytes (%) (Auto) 44% (24-48) Monocytes (%) (Auto) 11% (0-9) Eosinophils (%) (Auto) 0% (0-3) Basophils (%) (Auto) 1% (0-3) Neutrophils # (Auto) 1.7x10^3uL (1.8-7.7) Lymphocytes # (Auto) 1.7x10^3/uL (1.0-4.8) Monocytes # (Auto) 0.4x10^3/uL (0.0-1.1) Eosinophils # (Auto) 0.0x10^3/uL (0.0-0.7) Basophils # (Auto) 0.0x10^3/uL (0.0-0.2) Sodium Level 146mmol/L (136-145) Potassium Level 3.7mmol/L (3.5-5.1) Chloride Level 110mmol/L (98-107) Carbon Dioxide Level 26mmol/L (21-32) Anion Gap 10 (6-14) Blood Urea Nitrogen 15mg/dL (7-20) Creatinine 2.0mg/dL (0.6-1.0) Estimated GFR (Cockcroft-Gault) 27.2 Glucose Level 106mg/dL (70-99) Calcium Level 8.0mg/dL (8.5-10.1) Microbiology 10/30/16 Blood Culture - Preliminary, Resulted NO GROWTH AFTER 2 DAYS Medications Current Medications Sodium Chloride 10 ml 10 ml QSHIFT PRN IV AFTER MEDS AND BLOOD DRAWS; Start 09/02 at 23:30 Sodium Chloride (Iv Sodium Chloride 0.9% 500ml Bag) 500 ml @ 500 mls/hr 1X ONCE IV Last administered on 10/29/16 23:43; Start 10/29/16 at 23:45; Stop at 00:44; Status DC Albuterol/ Ipratropium 3 ml 3 ml 1X ONCE NEB Last administered on 10/30/16 00 :31; Start 10/30/16 at 00:15; Stop 10/30/16 at 00:57; Status DC Piperacillin Sod/ Tazobactam Sod 3.375 gm/Sodium Chloride 50 ml @ 100 mls/hr 1X ONCE IV Last administered on 10/30/16 02:38; Start 10/30/16 at 01:00; Stop 10/30/16 at 01:29; Status DC Ciprofloxacin Lactate (Cipro 400mg Premix) 200 ml @ 200 mls/hr 1X ONCE IV Last administered on 10/30/16 03:35; Start 10/30/16 at 01:30; Stop 10/30/16 at 02:29; Status DC Vancomycin HCl (Vanco Per Pharmacy) 1 each PRN DAILY PRN MC SEE COMMENTS Last administered on 10/31/16 18:13; Start 10/30/16 at 00:30 Albuterol/ Ipratropium (Duoneb) 3 ml RTQID NEB Last administered on 10/31/16 07:06; Start 10/30/16 at 08:00; Stop 10/31/16 at 07:59; Status DC Piperacillin Sod/ Tazobactam Sod 1 each 1 each PRN DAILY PRN MC SEE COMMENTS; Start 10/30/16 at 00:30 Ciprofloxacin Lactate (Cipro 400mg Premix) 200 ml @ 200 mls/hr Q12HR IV Last administered on 11/01/16 09:43; Start 10/30/16 at 21:00 Famotidine (Pepcid) 20 mg BID PO Last administered on 10/30/16 21:33; Start at 02:00; Stop 11/01/16 at 09:19; Status DC Insulin Human Regular 10 unit 10 unit 1X ONCE IV Last administered on 02:33; Start 10/30/16 at 01:00; Stop 10/30/16 at 01:01; Status DC Vancomycin HCl 2 gm/Sodium Chloride 500 ml @ 250 mls/hr 1X ONCE IV Last administered on 10/30/16 04:56; Start 10/30/16 at 05:00; Stop 10/30/16 at 06:59 ; Status DC Piperacillin Sod/ Tazobactam Sod/ Sodium Chloride (Zosyn/Iv Sodium Chloride 0.9 % 100ml) 100 ml @ 200 mls/hr Q6HRS IV Last administered on 11/01/16 12:57; Start 10/30/16 at 08:00 Promethazine HCl/ Codeine (Phenergan With Codeine) 5 ml PRN Q4HRS PRN PO COUGH Last administered on 10/30/16 21:44; Start 10/30/16 at 10:15 Acetaminophen/ Hydrocodone Bitart 1 tab 1 tab PRN Q4HRS PRN PO PAIN Last administered on 10/30/16 10:30; Start 10/30/16 at 10:15; Stop 10/30/16 at 11:31 ; Status DC Vancomycin HCl/ Sodium Chloride (Iv Sodium Chloride 0.9% 500ml Bag) 500 ml @ 250 mls/hr Q12H IV Last administered on 11/01/16 04:23; Start 10/30/16 at 17: 00 Vancomycin HCl 1 each 1X ONCE MC Last administered on 10/31/16 16:30; Start 10/31/16 at 16:30; Stop 10/31/16 at 16:31; Status DC Cyclobenzaprine HCl (Flexeril) 10 mg TID PO Last administered on 10/30/16 21: 33; Start 10/30/16 at 14:00; Stop 11/01/16 at 10:21; Status DC Diazepam (Valium) 5 mg DAILY PO Last administered on 10/30/16 13:20; Start at 12:30; Stop 11/01/16 at 10:21; Status DC Diltiazem HCl (Cardizem 24hr ) 120 mg DAILY PO Last administered on 13:19; Start 10/30/16 at 12:30 Escitalopram Oxalate (Lexapro) 5 mg DAILY PO Last administered on 11/01/16 09: 31; Start 10/30/16 at 12:30 Ferrous Sulfate (Feosol) 325 mg DAILY PO Last administered on 11/01/16 09:31; Start 10/30/16 at 12:30 Acetaminophen/ Hydrocodone Bitart (Lortab 5/325) 1 tab PRN QID PRN PO PAIN Last administered on 11/01/16 00:55; Start 10/30/16 at 11:30 Nystatin (Mycostatin) 1 vianney BID TP Last administered on 11/01/16 09:33; Start 10/30/16 at 12:30 Simvastatin (Zocor) 40 mg HS PO Last administered on 10/30/16 21:33; Start at 21:00 Zolpidem Tartrate (Ambien) 5 mg PRN QHS PRN PO INSOMNIA Last administered on 21:44; Start 10/30/16 at 11:30 Albuterol Sulfate (Ventolin Neb Soln) 2.5 mg PRN Q4HRS PRN NEB SHORTNESS OF BREATH Last administered on 11/01/16 10:03; Start 10/30/16 at 11:45 Budesonide (Pulmicort) 0.5 mg RTBID NEB Last administered on 11/01/16 10:03; Start 10/30/16 at 20:00 Non-Formulary Medication 500 mg QID PO ; Start 10/30/16 at 13:00; Stop 10/30/16 at 13:00; Status DC Cetirizine HCl (Zyrtec) 10 mg DAILY PO Last administered on 11/01/16 09:31; Start 10/30/16 at 12:30 Gabapentin (Neurontin) 800 mg TID PO Last administered on 11/01/16 09:30; Start 10/30/16 at 14:00 Insulin Aspart (Novolog) 27 units TIDAC SQ Last administered on 10/31/16 13:49 ; Start 10/30/16 at 12:00; Stop 11/01/16 at 10:21; Status DC Insulin Detemir (Levemir) 70 units QHS SQ Last administered on 10/31/16 21:10 ; Start 10/30/16 at 21:00 Non-Formulary Medication 1.8 mg DAILY SQ ; Start 10/31/16 at 09:00; Stop at 07:09; Status DC Pantoprazole Sodium (Protonix) 40 mg DAILYAC PO Last administered on 11/01/16 09:32; Start 10/30/16 at 12:30 Aspirin (Ecotrin) 81 mg DAILYWBKFT PO ; Start 10/30/16 at 12:30; Stop 10/31/16 at 10:40; Status DC Acetaminophen/ Hydrocodone Bitart (Lortab 5/325) 2 tab PRN QID PRN PO PAIN Last administered on 11/01/16 09:31; Start 10/30/16 at 11:45 Lisinopril (Prinivil) 10 mg DAILY PO Last administered on 10/30/16 17:13; Start 10/30/16 at 17:00; Stop 10/31/16 at 10:37; Status DC Throat Lozenges 1 abena 1 abena PRN Q2HRS PRN PO SORE THROAT; Start 10/30/16 at 18: 15 Sodium Chloride (Iv Sodium Chloride 0.9% 500ml Bag) 500 ml @ 500 mls/hr 1X ONCE IV Last administered on 10/31/16 08:00; Start 10/31/16 at 08:30; Stop at 09:29; Status DC Iohexol (Omnipaque 240 Mg/ml) 30 ml 1X ONCE PO Last administered on 10/31/16 09:00; Start 10/31/16 at 09:00; Stop 10/31/16 at 09:03; Status DC Info 1 each 1 each PRN DAILY PRN MC SEE COMMENTS; Start 10/31/16 at 09:15; Stop 11/02/16 at 09:14 Sodium Chloride (Iv Sodium Chloride 0.45%) 1,000 ml @ 125 mls/hr 1X ONCE IV Last administered on 10/31/16 11:24; Start 10/31/16 at 11:00; Stop 10/31/16 at 19:00; Status DC Ondansetron HCl (Zofran) 4 mg STK-MED ONCE .ROUTE ; Start 11/01/16 at 09:25; Stop 11/01/16 at 09:26; Status DC Insulin Aspart (Novolog) 20 units TIDAC SQ ; Start 11/01/16 at 11:30 Alprazolam 0.25 mg 0.25 mg PRN Q8HRS PRN PO ANXIETY / AGITATION; Start at 10:30 Sodium Chloride (Iv Sodium Chloride 0.45%) 1,000 ml @ 75 mls/hr 1X ONCE IV ; Start 11/01/16 at 10:30; Stop 11/01/16 at 23:49 Active Scripts Active Nystatin 15 Gm Cream..g. 1 Vianney TP BID 10 Days Ambien (Zolpidem Tartrate) 5 Mg Tablet 5 Mg PO PRN QHS PRN Valera 5-325 Tablet (Acetaminophen/Hydrocodone Bitart) 1 Each Tablet 1-2 Tab PO Q4-6HRS Reported Aspirin Ec (Aspirin) 81 Mg Tablet.dr 81 Mg PO DAILY Gabapentin 800 Mg Tablet 800 Mg PO TID Victoza 3-[place] (Liraglutide) 0.6 Mg/0.1 Ml Pen.injctr 1.8 Mg SQ DAILY Omeprazole 40 Mg Capsule.dr 40 Mg PO DAILY Cyclobenzaprine Hcl 10 Mg Tablet 10 Mg PO TID Iron (Ferrous Sulfate) 325 Mg Tablet 325 Mg PO DAILY Valium (Diazepam) 5 Mg Tablet 5 Mg PO DAILY Lexapro (Escitalopram Oxalate) 5 Mg Tablet 5 Mg PO DAILY Fexofenadine Hcl 180 Mg Tablet 180 Mg PO DAILY Albuterol Sulfate Conc Neb Soln (Albuterol Sulfate) 2.5 Mg/0.5 Ml Vial.neb 2.5 Mg NEB Q4HRS PRN Simvastatin 40 Mg Tablet 40 Mg PO HS Diltiazem 24HR Cd (Diltiazem Hcl) 120 Mg Cap.er.24h 120 Mg PO DAILY Symbicort 160-4.5 Mcg Inhaler (Budesonide/Formoterol Fumarate) 10.2 Gm Hfa.aer.ad 2 Puff IH BID Novolog (Insulin Aspart) 100 Unit/1 Ml Cartridge 27 Unit SQ TIDAC Lantus (Insulin Glargine,Hum.rec.anlog) 100 Unit/1 Ml Vial 70 Unit SQ HS Vitals/I & O Vital Sign - Last 24 Hours 10/31/16 10/31/16 10/31/16 10/31/16 14:00 15:00 16:00 16:00 Pulse 86 96 100 Resp 24 22 22 B/P 86/60 96/60 100/59 O2 Delivery Nasal Cannula Nasal Cannula Nasal Cannula Nasal Cannula O2 Flow Rate 3.0 3.0 4.0 10/31/16 10/31/16 10/31/16 10/31/16 16:49 17:00 18:00 18:45 Temp 98.6 98.6 Pulse 88 94 Resp 20 20 B/P 88/55 94/55 Pulse Ox 100 99 O2 Delivery Nasal Cannula Nasal Cannula Nasal Cannula Nasal Cannula O2 Flow Rate 4.0 3.0 3.0 4.0 10/31/16 10/31/16 10/31/16 10/31/16 19:00 20:00 20:00 21:00 Temp 98.8 98.8 Pulse 94 95 98 Resp 16 18 19 B/P 89/50 107/57 98/60 Pulse Ox 100 100 95 O2 Delivery Nasal Cannula Nasal Cannula Nasal Cannula Nasal Cannula O2 Flow Rate 2.0 2.0 2.0 2.0 10/31/16 10/31/16 10/31/16 11/01/16 22:00 23:00 23:59 00:00 Temp 98.9 98.9 Pulse 98 98 96 Resp 19 20 20 B/P 94/62 104/62 99/61 Pulse Ox 96 98 98 O2 Delivery Nasal Cannula Nasal Cannula Nasal Cannula Nasal Cannula O2 Flow Rate 2.0 2.0 2.0 2.0 11/01/16 11/01/16 11/01/16 11/01/16 00:55 01:00 01:55 02:00 Pulse 91 92 Resp 18 22 18 18 B/P 103/63 95/55 Pulse Ox 95 95 98 98 O2 Delivery Nasal Cannula Nasal Cannula Nasal Cannula Nasal Cannula O2 Flow Rate 2.0 2.0 2.0 2.0 11/01/16 11/01/16 11/01/16 11/01/16 03:00 04:00 04:00 05:00 Temp 98.8 98.8 Pulse 91 88 85 Resp 17 12 10 B/P 101/60 98/60 92/46 Pulse Ox 99 99 100 O2 Delivery Nasal Cannula Nasal Cannula Nasal Cannula Nasal Cannula O2 Flow Rate 2.0 2.0 2.0 2.0 11/01/16 11/01/16 11/01/16 11/01/16 06:00 07:00 08:00 08:00 Temp 97.8 97.8 Pulse 88 92 92 Resp 17 17 B/P 90/48 110/52 101/63 Pulse Ox 97 97 97 O2 Delivery Nasal Cannula Nasal Cannula Nasal Cannula Room Air O2 Flow Rate 2.0 2.0 2.0 11/01/16 11/01/16 11/01/16 11/01/16 09:00 09:31 10:00 10:04 Pulse 90 94 Resp 16 17 B/P 98/64 105/59 Pulse Ox 97 97 99 100 O2 Delivery Room Air Room Air Room Air Nasal Cannula O2 Flow Rate 4.0 11/01/16 11:00 Pulse 89 Resp 18 B/P 106/61 Pulse Ox 99 O2 Delivery Room Air Intake and Output 10/31/16 10/31/16 11/01/16 15:00 23:00 07:00 Intake Total 700 ml 600 ml Output Total 732 ml 330 ml Balance -32 ml 270 ml BREANNA PATEL MD Nov 01, 2016 13:16
[2016-11-01] MEDS: VANCOMYCIN PER PHARMACY MC PRN (14:32)
[2016-11-01] MEDS: GUAIFENESIN ER 600 MG TABLET.ER PO SCH ×2 (15:17→20:52)
[2016-11-01] MEDS: SIMVASTATIN 40 MG TABLET. PO SCH (20:52)
[2016-11-01] MEDS: ZOLPIDEM 5 MG TABLET. PO PRN (20:57)
[2016-11-01] MEDS ORDERED: INSULIN DETEMIR 300 UNITS/3 ML INSULN.PEN. SQ SCH (21:00)
[2016-11-02 04:00] VITALS: BP 114/60
[2016-11-02] MEDS: VANCOMYCIN 1.5 GM in IV NORMAL SALINE 500ML BAG 500 ML IV SCH (04:42)
[2016-11-02] MEDS: PIPERACILLIN/TAZOBACTAM 4.5 GM in IV NORMAL SALINE 100ML 100 ML IV SCH ×4 (06:47→23:57)
[2016-11-02 06:58] LABS: BASO % 0 % (0-3); EOS % 0 % (0-3); HEMATOCRIT 28.1 % (36.0-47.0); HEMOGLOBIN 8.7 g/dL (12.0-15.5); LYMPH # 1.5 x10^3/uL (1.0-4.8); LYMPH % 33 % (24-48); MEAN CORPUSCULAR HEMOGLOBIN 24 pg (25-35); MEAN CORPUSCULAR HGB CONC 31 g/dL (31-37); MEAN CORPUSCULAR VOLUME 79 fL (79-100); MONO % 9 % (0-9); NEUT % 58 % (31-73); PLATELET COUNT 207 x10^3/uL (140-400); RED BLOOD COUNT 3.56 x10^6/uL (3.50-5.40); RED CELL DISTRIBUTION WIDTH 19.3 % (11.5-14.5); WHITE BLOOD COUNT 4.5 x10^3/uL (4.0-11.0)
[2016-11-02 07:11] LABS: CALCIUM 8.1 mg/dL (8.5-10.1); CREATININE 1.8 mg/dL (0.6-1.0); GFR 30.7; POTASSIUM 3.9 mmol/L (3.5-5.1)
--- NOTE | 2016-11-02 07:27 | PDOC ---
Infectious Disease Note Subjective Subjective awake, says feeling better ROS ROS GEN: Denies fevers, chills, sweats HEENT: Denies blurred vision, sore throat CV: Denies chest pain RESP: Denies shortness of air, cough GI: Denies n/v/d NEURO: Denies confusion, dizziness MSK: Denies weakness, joint pain/swelling Vital Sign Vital Signs Vital Signs Date Time Temp Pulse Resp B/P Pulse Ox O2 Delivery O2 Flow Rate FiO2 11/02/16 04:00 98.8 84 20 114/60 94 Nasal Cannula 2.0 98.8 Physical Exam PHYSICAL EXAM GENERAL: NAD, Alert HEENT: PERRL, OC/OP NECK: Supple, no JVD, no LN LUNGS: Clear HEART: S1S2, no gallop, no murmur ABD: Soft, NT, no organomegaly, no rebound EXT: No edema, no cyanosis HOOKER OFF: Alert, oriented x 3, no focal neurologic deficit SKIN: No rash IV: ok Labs Lab Laboratory Tests Test 11/01/16 12:54 11/01/16 18:14 11/01/16 20:59 11/02/16 06:08 Glucose (Fingerstick) 122mg/dL (70-99) 123mg/dL (70-99) 136mg/dL (70-99) White Blood Count 4.5x10^3/uL (4.0-11.0) Red Blood Count 3.56x10^6/uL (3.50-5.40) Hemoglobin 8.7g/dL (12.0-15.5) Hematocrit 28.1% (36.0-47.0) Mean Corpuscular Volume 79fL (79-100) Mean Corpuscular Hemoglobin 24pg (25-35) Mean Corpuscular Hemoglobin Concent 31g/dL (31-37) Red Cell Distribution Width 19.3% (11.5-14.5) Platelet Count 207x10^3/uL (140-400) Neutrophils (%) (Auto) 58% (31-73) Lymphocytes (%) (Auto) 33% (24-48) Monocytes (%) (Auto) 9% (0-9) Eosinophils (%) (Auto) 0% (0-3) Basophils (%) (Auto) 0% (0-3) Neutrophils # (Auto) 2.6x10^3uL (1.8-7.7) Lymphocytes # (Auto) 1.5x10^3/uL (1.0-4.8) Monocytes # (Auto) 0.4x10^3/uL (0.0-1.1) Eosinophils # (Auto) 0.0x10^3/uL (0.0-0.7) Basophils # (Auto) 0.0x10^3/uL (0.0-0.2) Sodium Level 146mmol/L (136-145) Potassium Level 3.9mmol/L (3.5-5.1) Chloride Level 111mmol/L (98-107) Carbon Dioxide Level 25mmol/L (21-32) Anion Gap 10 (6-14) Blood Urea Nitrogen 14mg/dL (7-20) Creatinine 1.8mg/dL (0.6-1.0) Estimated GFR (Cockcroft-Gault) 30.7 Glucose Level 160mg/dL (70-99) Calcium Level 8.1mg/dL (8.5-10.1) Objective Assessment Fever Hypotension Change in MS ? sec to meds Recent hysterectomy Recent UTI Plan Plan of Care scale down to zosyn only supportive care fluids MARSHALL CHAVES MD Nov 02, 2016 07:27
[2016-11-02] MEDS: INSULIN ASPART 300 UNITS/3 ML INSULN.PEN SQ SCH ×3 (07:30→16:30)
[2016-11-02] MEDS: BUDESONIDE 0.5 MG/2 ML NEBU NEB SCH ×2 (07:39→20:13)
[2016-11-02 08:00] VITALS: BP 135/78
[2016-11-02] MEDS: ALBUTEROL SULFATE 2.5 MG/3 ML NEBU. NEB PRN ×2 (08:32→20:13)
[2016-11-02] MEDS: NYSTATIN 100,000 UNIT/GM TOPICAL CREAM 15GM TUBE. TP SCH ×2 (09:00→20:21)
[2016-11-02] MEDS: GABAPENTIN 400 MG CAPSULE. PO SCH ×3 (09:08→20:27)
[2016-11-02] MEDS: ESCITALOPRAM 5 MG TABLET. PO SCH (09:08)
[2016-11-02] MEDS: FERROUS SULFATE 325 MG TABLET PO SCH (09:08)
[2016-11-02] MEDS: DILTIAZEM HCL 120 MG CAP.ER.24H PO SCH (09:08)
[2016-11-02] MEDS: PANTOPRAZOLE 40 MG TABLET. PO SCH (09:09)
[2016-11-02] MEDS: GUAIFENESIN ER 600 MG TABLET.ER PO SCH ×2 (09:09→20:19)
[2016-11-02] MEDS: CETIRIZINE HCL 10 MG TABLET PO SCH (09:09)
[2016-11-02] MEDS: HYDROCODONE/APAP 5/325MG TABLET. PO PRN ×2 (09:09→20:19)
--- NOTE | 2016-11-02 09:39 | PDOC ---
PULMONARY PROGRESS NOTES Subjective PT FEELS BETTER NOT MORE SOA Vitals Vital Signs Date Time Temp Pulse Resp B/P Pulse Ox O2 Delivery O2 Flow Rate FiO2 11/02/16 09:09 93 Room Air 11/02/16 09:08 84 135/78 11/02/16 08:33 2.0 11/02/16 04:00 98.8 20 98.8 General: Alert Lungs: Clear Cardiovascular: S1, S2 Abdomen: Soft, Non-tender Neuro Exam: Alert Extremities: Other Skin: Warm, Dry Labs Laboratory Tests Test 10/31/16 11:34 10/31/16 16:30 10/31/16 17:57 11/01/16 06:38 Glucose (Fingerstick) 312mg/dL (70-99) 155mg/dL (70-99) Vancomycin Level Trough 13.6mcg/mL (10.0-20.0) Vancomycin Last Dose Date Unknown Vancomycin Last Dose Time Unknown White Blood Count 3.8x10^3/uL (4.0-11.0) Red Blood Count 2.92x10^6/uL (3.50-5.40) Hemoglobin 7.0g/dL (12.0-15.5) Hematocrit 22.3% (36.0-47.0) Mean Corpuscular Volume 76fL (79-100) Mean Corpuscular Hemoglobin 24pg (25-35) Mean Corpuscular Hemoglobin Concent 31g/dL (31-37) Red Cell Distribution Width 19.7% (11.5-14.5) Platelet Count 204x10^3/uL (140-400) Neutrophils (%) (Auto) 44% (31-73) Lymphocytes (%) (Auto) 44% (24-48) Monocytes (%) (Auto) 11% (0-9) Eosinophils (%) (Auto) 0% (0-3) Basophils (%) (Auto) 1% (0-3) Neutrophils # (Auto) 1.7x10^3uL (1.8-7.7) Lymphocytes # (Auto) 1.7x10^3/uL (1.0-4.8) Monocytes # (Auto) 0.4x10^3/uL (0.0-1.1) Eosinophils # (Auto) 0.0x10^3/uL (0.0-0.7) Basophils # (Auto) 0.0x10^3/uL (0.0-0.2) Sodium Level 146mmol/L (136-145) Potassium Level 3.7mmol/L (3.5-5.1) Chloride Level 110mmol/L (98-107) Carbon Dioxide Level 26mmol/L (21-32) Anion Gap 10 (6-14) Blood Urea Nitrogen 15mg/dL (7-20) Creatinine 2.0mg/dL (0.6-1.0) Estimated GFR (Cockcroft-Gault) 27.2 Glucose Level 106mg/dL (70-99) Calcium Level 8.0mg/dL (8.5-10.1) Test 11/01/16 12:54 11/01/16 18:14 11/01/16 20:59 11/02/16 06:08 Glucose (Fingerstick) 122mg/dL (70-99) 123mg/dL (70-99) 136mg/dL (70-99) White Blood Count 4.5x10^3/uL (4.0-11.0) Red Blood Count 3.56x10^6/uL (3.50-5.40) Hemoglobin 8.7g/dL (12.0-15.5) Hematocrit 28.1% (36.0-47.0) Mean Corpuscular Volume 79fL (79-100) Mean Corpuscular Hemoglobin 24pg (25-35) Mean Corpuscular Hemoglobin Concent 31g/dL (31-37) Red Cell Distribution Width 19.3% (11.5-14.5) Platelet Count 207x10^3/uL (140-400) Neutrophils (%) (Auto) 58% (31-73) Lymphocytes (%) (Auto) 33% (24-48) Monocytes (%) (Auto) 9% (0-9) Eosinophils (%) (Auto) 0% (0-3) Basophils (%) (Auto) 0% (0-3) Neutrophils # (Auto) 2.6x10^3uL (1.8-7.7) Lymphocytes # (Auto) 1.5x10^3/uL (1.0-4.8) Monocytes # (Auto) 0.4x10^3/uL (0.0-1.1) Eosinophils # (Auto) 0.0x10^3/uL (0.0-0.7) Basophils # (Auto) 0.0x10^3/uL (0.0-0.2) Sodium Level 146mmol/L (136-145) Potassium Level 3.9mmol/L (3.5-5.1) Chloride Level 111mmol/L (98-107) Carbon Dioxide Level 25mmol/L (21-32) Anion Gap 10 (6-14) Blood Urea Nitrogen 14mg/dL (7-20) Creatinine 1.8mg/dL (0.6-1.0) Estimated GFR (Cockcroft-Gault) 30.7 Glucose Level 160mg/dL (70-99) Calcium Level 8.1mg/dL (8.5-10.1) Laboratory Tests Test 11/01/16 12:54 11/01/16 18:14 11/01/16 20:59 11/02/16 06:08 Glucose (Fingerstick) 122mg/dL (70-99) 123mg/dL (70-99) 136mg/dL (70-99) White Blood Count 4.5x10^3/uL (4.0-11.0) Red Blood Count 3.56x10^6/uL (3.50-5.40) Hemoglobin 8.7g/dL (12.0-15.5) Hematocrit 28.1% (36.0-47.0) Mean Corpuscular Volume 79fL (79-100) Mean Corpuscular Hemoglobin 24pg (25-35) Mean Corpuscular Hemoglobin Concent 31g/dL (31-37) Red Cell Distribution Width 19.3% (11.5-14.5) Platelet Count 207x10^3/uL (140-400) Neutrophils (%) (Auto) 58% (31-73) Lymphocytes (%) (Auto) 33% (24-48) Monocytes (%) (Auto) 9% (0-9) Eosinophils (%) (Auto) 0% (0-3) Basophils (%) (Auto) 0% (0-3) Neutrophils # (Auto) 2.6x10^3uL (1.8-7.7) Lymphocytes # (Auto) 1.5x10^3/uL (1.0-4.8) Monocytes # (Auto) 0.4x10^3/uL (0.0-1.1) Eosinophils # (Auto) 0.0x10^3/uL (0.0-0.7) Basophils # (Auto) 0.0x10^3/uL (0.0-0.2) Sodium Level 146mmol/L (136-145) Potassium Level 3.9mmol/L (3.5-5.1) Chloride Level 111mmol/L (98-107) Carbon Dioxide Level 25mmol/L (21-32) Anion Gap 10 (6-14) Blood Urea Nitrogen 14mg/dL (7-20) Creatinine 1.8mg/dL (0.6-1.0) Estimated GFR (Cockcroft-Gault) 30.7 Glucose Level 160mg/dL (70-99) Calcium Level 8.1mg/dL (8.5-10.1) Medications Active Scripts Medications Dose Route/Sig Days Date Category Aspirin Ec (Aspirin) 81 Mg Tablet.dr 81 Mg PO DAILY 10/30/16 Reported Nystatin 15 Gm Cream..g. 1 [place] TP BID 10 08/08/16 Rx Ambien (Zolpidem Tartrate) 5 Mg Tablet 5 Mg PO PRN QHS PRN 08/08/16 Rx [place] 5-325 Tablet (Acetaminophen/Hydrocodone Bitart) 1 Each Tablet 1-2 Tab PO Q4-6HRS 07/30/16 Rx Gabapentin 800 Mg Tablet 800 Mg PO TID 07/28/16 Reported Victoza 3-[place] (Liraglutide) 0.6 Mg/0.1 Ml Pen.injctr 1.8 Mg SQ DAILY 07/28/16 Reported Omeprazole 40 Mg Capsule. 40 Mg PO DAILY 07/28/16 Reported Cyclobenzaprine Hcl 10 Mg Tablet 10 Mg PO TID 07/28/16 Reported Iron (Ferrous Sulfate) 325 Mg Tablet 325 Mg PO DAILY 07/28/16 Reported Valium (Diazepam) 5 Mg Tablet 5 Mg PO DAILY 07/28/16 Reported Lexapro (Escitalopram Oxalate) 5 Mg Tablet 5 Mg PO DAILY 07/28/16 Reported Fexofenadine Hcl 180 Mg Tablet 180 Mg PO DAILY 07/28/16 Reported Albuterol Sulfate Conc Neb Soln (Albuterol Sulfate) 2.5 Mg/0.5 Ml Vial.neb 2.5 Mg NEB Q4HRS PRN 07/28/16 Reported Simvastatin 40 Mg Tablet 40 Mg PO HS 07/28/16 Reported Diltiazem 24HR Cd (Diltiazem Hcl) 120 Mg Cap.er.24h 120 Mg PO DAILY 07/28/16 Reported Symbicort 160-4.5 Mcg Inhaler (Budesonide/Formoterol Fumarate) 10.2 Gm Hfa.aer.ad 2 Puff IH BID 07/28/16 Reported Novolog (Insulin Aspart) 100 Unit/1 Ml Cartridge 27 Unit SQ TIDAC 10/02/14 Reported Lantus (Insulin Glargine,Hum.rec.anlog) 100 Unit/1 Ml Vial 70 Unit SQ HS 10/02/14 Reported Impression . 1. Pneumonia 2. Acute exacerbation of asthma. 3. Chronic atrial fibrillation. 4. Sepsis POA with hypotension 5. Met and toxic encephalopathy Plan . Ence has improved, ok to transfer Antibx hold sedating medication DVT and GI proph spoke with mother so far cultures negative GUMARO PYLE MD Nov 02, 2016 09:38
[2016-11-02 10:32] LABS: FOLIC ACID 13.5 ng/mL (>3.0)
--- NOTE | 2016-11-02 11:27 | PDOC ---
Renal-Progress Notes Subjective Notes Notes NONE History of Present Illness Hx of present illness NO CHANGE Vitals Vitals Vital Signs Date Time Temp Pulse Resp B/P Pulse Ox O2 Delivery O2 Flow Rate FiO2 11/02/16 09:09 93 Room Air 11/02/16 09:08 84 135/78 11/02/16 08:33 2.0 11/02/16 04:00 98.8 20 98.8 Weight Weight [ ] I.O. Intake and Output Intake and Output 11/02/16 07:00 Intake Total 2385 ml Output Total 1750 ml Balance 635 ml Intake Oral 450 ml IV Total 1635 ml Blood Product IV Normal Saline Flush 300 ml Output Urine Total 1750 ml Labs Labs Laboratory Tests Test 11/01/16 12:54 11/01/16 18:14 11/01/16 20:59 11/02/16 06:08 Glucose (Fingerstick) 122mg/dL (70-99) 123mg/dL (70-99) 136mg/dL (70-99) White Blood Count 4.5x10^3/uL (4.0-11.0) Red Blood Count 3.56x10^6/uL (3.50-5.40) Hemoglobin 8.7g/dL (12.0-15.5) Hematocrit 28.1% (36.0-47.0) Mean Corpuscular Volume 79fL (79-100) Mean Corpuscular Hemoglobin 24pg (25-35) Mean Corpuscular Hemoglobin Concent 31g/dL (31-37) Red Cell Distribution Width 19.3% (11.5-14.5) Platelet Count 207x10^3/uL (140-400) Neutrophils (%) (Auto) 58% (31-73) Lymphocytes (%) (Auto) 33% (24-48) Monocytes (%) (Auto) 9% (0-9) Eosinophils (%) (Auto) 0% (0-3) Basophils (%) (Auto) 0% (0-3) Neutrophils # (Auto) 2.6x10^3uL (1.8-7.7) Lymphocytes # (Auto) 1.5x10^3/uL (1.0-4.8) Monocytes # (Auto) 0.4x10^3/uL (0.0-1.1) Eosinophils # (Auto) 0.0x10^3/uL (0.0-0.7) Basophils # (Auto) 0.0x10^3/uL (0.0-0.2) Sodium Level 146mmol/L (136-145) Potassium Level 3.9mmol/L (3.5-5.1) Chloride Level 111mmol/L (98-107) Carbon Dioxide Level 25mmol/L (21-32) Anion Gap 10 (6-14) Blood Urea Nitrogen 14mg/dL (7-20) Creatinine 1.8mg/dL (0.6-1.0) Estimated GFR (Cockcroft-Gault) 30.7 Glucose Level 160mg/dL (70-99) Calcium Level 8.1mg/dL (8.5-10.1) Vitamin B12 Level 578pg/mL (211-946) Folic Acid (LAB) 13.5ng/mL (>3.0) Micro Micro Microbiology 10/30/16 Blood Culture - Preliminary, Resulted NO GROWTH AFTER 3 DAYS Review of Systems Constitutional: yes: alert, oriented, weakness Ears/Nose/Throat: Yes: no symptom reported Eyes: Yes: no symptom reported Pulmonary: Yes no symptom reported Cardiovascular: Yes no symptom reported Gastrointestional: Yes: constipation Musculoskeletal: Yes: muscle stiffness Skin: Yes no symptom reported Physical Exam General Appearance: no apparent distress Skin: warm Respiratory: bilateral CTA Heart: S1S2 Abdomen: soft, bowel sounds present Genitourinary: bladder flat Neurology: alert, oriented, follow commands Assessment Assessment IMP BIGG-ATN - IMPROVING CR DOWN TO 1.8 HYPOTENSION-BETTER S/P RECENT HYSTERECTOMY PLAN RESUME IVF'S REMOVE ROSALES WILL FOLLOW TATE AREVALO MD Nov 02, 2016 11:26
[2016-11-02 12:00] VITALS: BP 118/69
[2016-11-02 13:32] LABS: % SAT IRON 6 % (15-34); IRON,SERUM 12 ug/dL (50-170)
--- NOTE | 2016-11-02 14:44 | PDOC ---
PROGRESS NOTES Chief Complaint Chief Complaint 1. Pneumonia, sepsis 2. Acute exacerbation of asthma. 3. rapid on Chronic atrial fibrillation. 4. Sepsis POA with hypotension 5. Metabolic and toxic encephalopathy 6. Medication related mental status changes 7. anemia, 2/2 dilutional + recent sx history 8. BIGG , vasomotor plan: 1. fu with pulm, card, id get renal consulted 2. 1u PRBC transfusion 11/01 3. ivf given low po intake 4. decrease insulin to levemir 40u qhs, aspart 15u tid 5. add cough meds dc valium, flexiril, add xanax prn ok to transfer out of ICU dvt ppx check iron, ferritin, fa, vitb12, FOBT add iron iv daily x5 History of Present Illness History of Present Illness Pt seen after transferred to ICU 10/31. Pt drowsy and unable to answer questions or hold a conversation. Rapid response was called this AM with patient being transferred to ICU. Able to ascertain that pt took several sedative medications. Possible a mix of Kittrell, Ambien, and Flexeril. VS currently stable with pt on 2 L NC. BP pressure maintaining. pt still cough a lot, but feels sob slightly better, hb 7 Cr 2 from 1 Vitals Vitals Vital Signs Date Time Temp Pulse Resp B/P Pulse Ox O2 Delivery O2 Flow Rate FiO2 11/02/16 09:09 93 Room Air 11/02/16 09:08 84 135/78 11/02/16 08:33 2.0 11/02/16 04:00 98.8 20 98.8 Physical Exam General: Alert, Oriented X3, Cooperative, No acute distress Heart: Regular rate, Normal S1 Lungs: Clear Abdomen: Normal bowel sounds, Soft, No tenderness Extremities: No cyanosis Skin: No breakdown Labs LABS Laboratory Tests Test 11/01/16 18:14 11/01/16 20:59 11/02/16 06:08 11/02/16 12:58 Glucose (Fingerstick) 123mg/dL (70-99) 136mg/dL (70-99) 220mg/dL (70-99) White Blood Count 4.5x10^3/uL (4.0-11.0) Red Blood Count 3.56x10^6/uL (3.50-5.40) Hemoglobin 8.7g/dL (12.0-15.5) Hematocrit 28.1% (36.0-47.0) Mean Corpuscular Volume 79fL (79-100) Mean Corpuscular Hemoglobin 24pg (25-35) Mean Corpuscular Hemoglobin Concent 31g/dL (31-37) Red Cell Distribution Width 19.3% (11.5-14.5) Platelet Count 207x10^3/uL (140-400) Neutrophils (%) (Auto) 58% (31-73) Lymphocytes (%) (Auto) 33% (24-48) Monocytes (%) (Auto) 9% (0-9) Eosinophils (%) (Auto) 0% (0-3) Basophils (%) (Auto) 0% (0-3) Neutrophils # (Auto) 2.6x10^3uL (1.8-7.7) Lymphocytes # (Auto) 1.5x10^3/uL (1.0-4.8) Monocytes # (Auto) 0.4x10^3/uL (0.0-1.1) Eosinophils # (Auto) 0.0x10^3/uL (0.0-0.7) Basophils # (Auto) 0.0x10^3/uL (0.0-0.2) Sodium Level 146mmol/L (136-145) Potassium Level 3.9mmol/L (3.5-5.1) Chloride Level 111mmol/L (98-107) Carbon Dioxide Level 25mmol/L (21-32) Anion Gap 10 (6-14) Blood Urea Nitrogen 14mg/dL (7-20) Creatinine 1.8mg/dL (0.6-1.0) Estimated GFR (Cockcroft-Gault) 30.7 Glucose Level 160mg/dL (70-99) Calcium Level 8.1mg/dL (8.5-10.1) Iron Level 12ug/dL (50-170) Total Iron Binding Capacity 215ug/dL (250-450) Iron Saturation 6% (15-34) Ferritin 193ng/mL (8-252) Vitamin B12 Level 578pg/mL (211-946) Folic Acid (LAB) 13.5ng/mL (>3.0) Review of Systems Review of Systems no fever, chills, sob or chest pain Assessment and Plan Assessmemt and Plan Problems Medical Problems: (1) Healthcare-associated pneumonia Status: Acute (2) Hyperglycemia Status: Acute Problems: Comment Review of Relevant I have reviewed the following items emery (where applicable) has been applied. Labs Laboratory Tests Test 10/31/16 16:30 10/31/16 17:57 11/01/16 06:38 11/01/16 12:54 Vancomycin Level Trough 13.6mcg/mL (10.0-20.0) Vancomycin Last Dose Date Unknown Vancomycin Last Dose Time Unknown Glucose (Fingerstick) 155mg/dL (70-99) 122mg/dL (70-99) White Blood Count 3.8x10^3/uL (4.0-11.0) Red Blood Count 2.92x10^6/uL (3.50-5.40) Hemoglobin 7.0g/dL (12.0-15.5) Hematocrit 22.3% (36.0-47.0) Mean Corpuscular Volume 76fL (79-100) Mean Corpuscular Hemoglobin 24pg (25-35) Mean Corpuscular Hemoglobin Concent 31g/dL (31-37) Red Cell Distribution Width 19.7% (11.5-14.5) Platelet Count 204x10^3/uL (140-400) Neutrophils (%) (Auto) 44% (31-73) Lymphocytes (%) (Auto) 44% (24-48) Monocytes (%) (Auto) 11% (0-9) Eosinophils (%) (Auto) 0% (0-3) Basophils (%) (Auto) 1% (0-3) Neutrophils # (Auto) 1.7x10^3uL (1.8-7.7) Lymphocytes # (Auto) 1.7x10^3/uL (1.0-4.8) Monocytes # (Auto) 0.4x10^3/uL (0.0-1.1) Eosinophils # (Auto) 0.0x10^3/uL (0.0-0.7) Basophils # (Auto) 0.0x10^3/uL (0.0-0.2) Sodium Level 146mmol/L (136-145) Potassium Level 3.7mmol/L (3.5-5.1) Chloride Level 110mmol/L (98-107) Carbon Dioxide Level 26mmol/L (21-32) Anion Gap 10 (6-14) Blood Urea Nitrogen 15mg/dL (7-20) Creatinine 2.0mg/dL (0.6-1.0) Estimated GFR (Cockcroft-Gault) 27.2 Glucose Level 106mg/dL (70-99) Calcium Level 8.0mg/dL (8.5-10.1) Test 11/01/16 18:14 11/01/16 20:59 11/02/16 06:08 11/02/16 12:58 Glucose (Fingerstick) 123mg/dL (70-99) 136mg/dL (70-99) 220mg/dL (70-99) White Blood Count 4.5x10^3/uL (4.0-11.0) Red Blood Count 3.56x10^6/uL (3.50-5.40) Hemoglobin 8.7g/dL (12.0-15.5) Hematocrit 28.1% (36.0-47.0) Mean Corpuscular Volume 79fL (79-100) Mean Corpuscular Hemoglobin 24pg (25-35) Mean Corpuscular Hemoglobin Concent 31g/dL (31-37) Red Cell Distribution Width 19.3% (11.5-14.5) Platelet Count 207x10^3/uL (140-400) Neutrophils (%) (Auto) 58% (31-73) Lymphocytes (%) (Auto) 33% (24-48) Monocytes (%) (Auto) 9% (0-9) Eosinophils (%) (Auto) 0% (0-3) Basophils (%) (Auto) 0% (0-3) Neutrophils # (Auto) 2.6x10^3uL (1.8-7.7) Lymphocytes # (Auto) 1.5x10^3/uL (1.0-4.8) Monocytes # (Auto) 0.4x10^3/uL (0.0-1.1) Eosinophils # (Auto) 0.0x10^3/uL (0.0-0.7) Basophils # (Auto) 0.0x10^3/uL (0.0-0.2) Sodium Level 146mmol/L (136-145) Potassium Level 3.9mmol/L (3.5-5.1) Chloride Level 111mmol/L (98-107) Carbon Dioxide Level 25mmol/L (21-32) Anion Gap 10 (6-14) Blood Urea Nitrogen 14mg/dL (7-20) Creatinine 1.8mg/dL (0.6-1.0) Estimated GFR (Cockcroft-Gault) 30.7 Glucose Level 160mg/dL (70-99) Calcium Level 8.1mg/dL (8.5-10.1) Iron Level 12ug/dL (50-170) Total Iron Binding Capacity 215ug/dL (250-450) Iron Saturation 6% (15-34) Ferritin 193ng/mL (8-252) Vitamin B12 Level 578pg/mL (211-946) Folic Acid (LAB) 13.5ng/mL (>3.0) Laboratory Tests Test 11/01/16 18:14 11/01/16 20:59 11/02/16 06:08 11/02/16 12:58 Glucose (Fingerstick) 123mg/dL (70-99) 136mg/dL (70-99) 220mg/dL (70-99) White Blood Count 4.5x10^3/uL (4.0-11.0) Red Blood Count 3.56x10^6/uL (3.50-5.40) Hemoglobin 8.7g/dL (12.0-15.5) Hematocrit 28.1% (36.0-47.0) Mean Corpuscular Volume 79fL (79-100) Mean Corpuscular Hemoglobin 24pg (25-35) Mean Corpuscular Hemoglobin Concent 31g/dL (31-37) Red Cell Distribution Width 19.3% (11.5-14.5) Platelet Count 207x10^3/uL (140-400) Neutrophils (%) (Auto) 58% (31-73) Lymphocytes (%) (Auto) 33% (24-48) Monocytes (%) (Auto) 9% (0-9) Eosinophils (%) (Auto) 0% (0-3) Basophils (%) (Auto) 0% (0-3) Neutrophils # (Auto) 2.6x10^3uL (1.8-7.7) Lymphocytes # (Auto) 1.5x10^3/uL (1.0-4.8) Monocytes # (Auto) 0.4x10^3/uL (0.0-1.1) Eosinophils # (Auto) 0.0x10^3/uL (0.0-0.7) Basophils # (Auto) 0.0x10^3/uL (0.0-0.2) Sodium Level 146mmol/L (136-145) Potassium Level 3.9mmol/L (3.5-5.1) Chloride Level 111mmol/L (98-107) Carbon Dioxide Level 25mmol/L (21-32) Anion Gap 10 (6-14) Blood Urea Nitrogen 14mg/dL (7-20) Creatinine 1.8mg/dL (0.6-1.0) Estimated GFR (Cockcroft-Gault) 30.7 Glucose Level 160mg/dL (70-99) Calcium Level 8.1mg/dL (8.5-10.1) Iron Level 12ug/dL (50-170) Total Iron Binding Capacity 215ug/dL (250-450) Iron Saturation 6% (15-34) Ferritin 193ng/mL (8-252) Vitamin B12 Level 578pg/mL (211-946) Folic Acid (LAB) 13.5ng/mL (>3.0) Microbiology 10/30/16 Blood Culture - Preliminary, Resulted NO GROWTH AFTER 3 DAYS Medications Current Medications Sodium Chloride 10 ml 10 ml QSHIFT PRN IV AFTER MEDS AND BLOOD DRAWS; Start 09/02 at 23:30 Sodium Chloride (Iv Sodium Chloride 0.9% 500ml Bag) 500 ml @ 500 mls/hr 1X ONCE IV Last administered on 10/29/16 23:43; Start 10/29/16 at 23:45; Stop at 00:44; Status DC Albuterol/ Ipratropium 3 ml 3 ml 1X ONCE NEB Last administered on 10/30/16 00 :31; Start 10/30/16 at 00:15; Stop 10/30/16 at 00:57; Status DC Piperacillin Sod/ Tazobactam Sod 3.375 gm/Sodium Chloride 50 ml @ 100 mls/hr 1X ONCE IV Last administered on 10/30/16 02:38; Start 10/30/16 at 01:00; Stop 10/30/16 at 01:29; Status DC Ciprofloxacin Lactate (Cipro 400mg Premix) 200 ml @ 200 mls/hr 1X ONCE IV Last administered on 10/30/16 03:35; Start 10/30/16 at 01:30; Stop 10/30/16 at 02:29; Status DC Vancomycin HCl (Vanco Per Pharmacy) 1 each PRN DAILY PRN MC SEE COMMENTS Last administered on 11/01/16 14:32; Start 10/30/16 at 00:30; Stop 11/02/16 at 07:27 ; Status DC Albuterol/ Ipratropium (Duoneb) 3 ml RTQID NEB Last administered on 10/31/16 07:06; Start 10/30/16 at 08:00; Stop 10/31/16 at 07:59; Status DC Piperacillin Sod/ Tazobactam Sod 1 each 1 each PRN DAILY PRN MC SEE COMMENTS; Start 10/30/16 at 00:30; Stop 11/01/16 at 13:16; Status DC Ciprofloxacin Lactate (Cipro 400mg Premix) 200 ml @ 200 mls/hr Q12HR IV Last administered on 11/01/16 21:38; Start 10/30/16 at 21:00; Stop 11/02/16 at 07:27 ; Status DC Famotidine (Pepcid) 20 mg BID PO Last administered on 10/30/16 21:33; Start at 02:00; Stop 11/01/16 at 09:19; Status DC Insulin Human Regular 10 unit 10 unit 1X ONCE IV Last administered on 02:33; Start 10/30/16 at 01:00; Stop 10/30/16 at 01:01; Status DC Vancomycin HCl 2 gm/Sodium Chloride 500 ml @ 250 mls/hr 1X ONCE IV Last administered on 10/30/16 04:56; Start 10/30/16 at 05:00; Stop 10/30/16 at 06:59 ; Status DC Piperacillin Sod/ Tazobactam Sod/ Sodium Chloride (Zosyn/Iv Sodium Chloride 0.9 % 100ml) 100 ml @ 200 mls/hr Q6HRS IV Last administered on 11/02/16 13:47; Start 10/30/16 at 08:00 Promethazine HCl/ Codeine (Phenergan With Codeine) 5 ml PRN Q4HRS PRN PO COUGH Last administered on 10/30/16 21:44; Start 10/30/16 at 10:15 Acetaminophen/ Hydrocodone Bitart 1 tab 1 tab PRN Q4HRS PRN PO PAIN Last administered on 10/30/16 10:30; Start 10/30/16 at 10:15; Stop 10/30/16 at 11:31 ; Status DC Vancomycin HCl/ Sodium Chloride (Iv Sodium Chloride 0.9% 500ml Bag) 500 ml @ 250 mls/hr Q12H IV Last administered on 11/02/16 04:42; Start 10/30/16 at 17: 00; Stop 11/02/16 at 07:27; Status DC Vancomycin HCl 1 each 1X ONCE MC Last administered on 10/31/16 16:30; Start 10/31/16 at 16:30; Stop 10/31/16 at 16:31; Status DC Cyclobenzaprine HCl (Flexeril) 10 mg TID PO Last administered on 10/30/16 21: 33; Start 10/30/16 at 14:00; Stop 11/01/16 at 10:21; Status DC Diazepam (Valium) 5 mg DAILY PO Last administered on 11/01/16 09:00; Start at 12:30; Stop 11/01/16 at 10:21; Status DC Diltiazem HCl (Cardizem 24hr Cd) 120 mg DAILY PO Last administered on 09:08; Start 10/30/16 at 12:30 Escitalopram Oxalate (Lexapro) 5 mg DAILY PO Last administered on 11/02/16 09: 08; Start 10/30/16 at 12:30 Ferrous Sulfate (Feosol) 325 mg DAILY PO Last administered on 11/02/16 09:08; Start 10/30/16 at 12:30 Acetaminophen/ Hydrocodone Bitart (Lortab 5/325) 1 tab PRN QID PRN PO MODERATE PAIN Last administered on 11/02/16 09:09; Start 10/30/16 at 11:30 Nystatin (Mycostatin) 1 vianney BID TP Last administered on 11/01/16 20:53; Start 10/30/16 at 12:30 Simvastatin (Zocor) 40 mg HS PO Last administered on 11/01/16 20:52; Start at 21:00 Zolpidem Tartrate (Ambien) 5 mg PRN QHS PRN PO INSOMNIA Last administered on 20:57; Start 10/30/16 at 11:30 Albuterol Sulfate (Ventolin Neb Soln) 2.5 mg PRN Q4HRS PRN NEB SHORTNESS OF BREATH Last administered on 11/02/16 08:32; Start 10/30/16 at 11:45 Budesonide (Pulmicort) 0.5 mg RTBID NEB Last administered on 11/01/16 19:31; Start 10/30/16 at 20:00 Non-Formulary Medication 500 mg QID PO ; Start 10/30/16 at 13:00; Stop 10/30/16 at 13:00; Status DC Cetirizine HCl (Zyrtec) 10 mg DAILY PO Last administered on 11/02/16 09:09; Start 10/30/16 at 12:30 Gabapentin (Neurontin) 800 mg TID PO Last administered on 11/02/16 09:08; Start 10/30/16 at 14:00 Insulin Aspart (Novolog) 27 units TIDAC SQ Last administered on 10/31/16 13:49 ; Start 10/30/16 at 12:00; Stop 11/01/16 at 10:21; Status DC Insulin Detemir (Levemir) 70 units QHS SQ Last administered on 10/31/16 21:10 ; Start 10/30/16 at 21:00; Stop 11/01/16 at 13:13; Status DC Non-Formulary Medication 1.8 mg DAILY SQ ; Start 10/31/16 at 09:00; Stop at 07:09; Status DC Pantoprazole Sodium (Protonix) 40 mg DAILYAC PO Last administered on 11/02/16 09:09; Start 10/30/16 at 12:30 Aspirin (Ecotrin) 81 mg DAILYWBKFT PO ; Start 10/30/16 at 12:30; Stop 10/31/16 at 10:40; Status DC Acetaminophen/ Hydrocodone Bitart (Lortab 5/325) 2 tab PRN QID PRN PO SEVERE PAIN Last administered on 11/01/16 09:31; Start 10/30/16 at 11:45 Lisinopril (Prinivil) 10 mg DAILY PO Last administered on 10/30/16 17:13; Start 10/30/16 at 17:00; Stop 10/31/16 at 10:37; Status DC Throat Lozenges 1 abena 1 abena PRN Q2HRS PRN PO SORE THROAT; Start 10/30/16 at 18: 15 Sodium Chloride (Iv Sodium Chloride 0.9% 500ml Bag) 500 ml @ 500 mls/hr 1X ONCE IV Last administered on 10/31/16 08:00; Start 10/31/16 at 08:30; Stop at 09:29; Status DC Iohexol (Omnipaque 240 Mg/ml) 30 ml 1X ONCE PO Last administered on 10/31/16 09:00; Start 10/31/16 at 09:00; Stop 10/31/16 at 09:03; Status DC Info 1 each 1 each PRN DAILY PRN MC SEE COMMENTS; Start 10/31/16 at 09:15; Stop 11/02/16 at 09:14; Status DC Sodium Chloride (Iv Sodium Chloride 0.45%) 1,000 ml @ 125 mls/hr 1X ONCE IV Last administered on 10/31/16 11:24; Start 10/31/16 at 11:00; Stop 10/31/16 at 19:00; Status DC Ondansetron HCl (Zofran) 4 mg STK-MED ONCE .ROUTE ; Start 11/01/16 at 09:25; Stop 11/01/16 at 09:26; Status DC Insulin Aspart (Novolog) 20 units TIDAC SQ Last administered on 11/02/16 13:03 ; Start 11/01/16 at 11:30 Alprazolam 0.25 mg 0.25 mg PRN Q8HRS PRN PO ANXIETY / AGITATION; Start at 10:30 Sodium Chloride (Iv Sodium Chloride 0.45%) 1,000 ml @ 75 mls/hr 1X ONCE IV Last administered on 2/15/17at 13:57; Start 11/01/16 at 10:30; Stop 11/01/16 at 23:49; Status DC Insulin Detemir (Levemir) 60 units QHS SQ ; Start 11/01/16 at 21:00 Piperacillin Sod/ Tazobactam Sod (Zosyn Per Pharmacy) 1 each PRN DAILY PRN MC SEE COMMENTS; Start 11/01/16 at 13:15; Stop 11/01/16 at 13:16; Status DC Guaifenesin (Mucinex) 600 mg BID PO Last administered on 11/02/16t 09:09; Start 11/01/16 at 14:00 Guaifenesin (Robitussin) 200 mg PRN Q4HRS PRN PO COUGH; Start 11/01/16 at 13:15 Ondansetron HCl (Zofran) 4 mg STK-MED ONCE .ROUTE ; Start 11/01/16 at 09:25; Stop 11/02/16 at 08:23; Status DC Active Scripts Active Nystatin 15 Gm Cream..g. 1 Vianney TP BID 10 Days Ambien (Zolpidem Tartrate) 5 Mg Tablet 5 Mg PO PRN QHS PRN Kittrell 5-325 Tablet (Acetaminophen/Hydrocodone Bitart) 1 Each Tablet 1-2 Tab PO Q4-6HRS Reported Aspirin Ec (Aspirin) 81 Mg Tablet. 81 Mg PO DAILY Gabapentin 800 Mg Tablet 800 Mg PO TID Victoza 3-[place] (Liraglutide) 0.6 Mg/0.1 Ml Pen.injctr 1.8 Mg SQ DAILY Omeprazole 40 Mg Capsule. 40 Mg PO DAILY Cyclobenzaprine Hcl 10 Mg Tablet 10 Mg PO TID Iron (Ferrous Sulfate) 325 Mg Tablet 325 Mg PO DAILY Valium (Diazepam) 5 Mg Tablet 5 Mg PO DAILY Lexapro (Escitalopram Oxalate) 5 Mg Tablet 5 Mg PO DAILY Fexofenadine Hcl 180 Mg Tablet 180 Mg PO DAILY Albuterol Sulfate Conc Neb Soln (Albuterol Sulfate) 2.5 Mg/0.5 Ml Vial.neb 2.5 Mg NEB Q4HRS PRN Simvastatin 40 Mg Tablet 40 Mg PO HS Diltiazem 24HR Cd (Diltiazem Hcl) 120 Mg Cap.er.24h 120 Mg PO DAILY Symbicort 160-4.5 Mcg Inhaler (Budesonide/Formoterol Fumarate) 10.2 Gm Hfa.aer.ad 2 Puff IH BID Novolog (Insulin Aspart) 100 Unit/1 Ml Cartridge 27 Unit SQ TIDAC Lantus (Insulin Glargine,Hum.rec.anlog) 100 Unit/1 Ml Vial 70 Unit SQ HS Vitals/I & O Vital Sign - Last 24 Hours 11/01/16 11/01/16 11/01/16 11/01/16 14:42 15:12 16:00 19:30 Temp 99.1 99.2 99.1 99.1 99.2 99.1 Pulse 85 88 85 Resp 18 16 18 B/P 100/59 108/71 99/61 Pulse Ox 99 O2 Delivery Room Air Room Air O2 Flow Rate 4.0 11/01/16 11/01/16 11/01/16 11/02/16 19:30 19:32 23:38 04:00 Temp 100.0 99.5 98.8 100.0 99.5 98.8 Pulse 89 86 84 Resp 20 23 20 B/P 97/61 110/63 114/60 Pulse Ox 100 100 96 94 O2 Delivery Nasal Cannula Nasal Cannula Nasal Cannula Nasal Cannula O2 Flow Rate 4.0 4.0 2.0 2.0 11/02/16 11/02/16 11/02/16 08:33 09:08 09:09 Pulse 84 B/P 135/78 Pulse Ox 93 93 O2 Delivery Nasal Cannula Room Air O2 Flow Rate 2.0 Intake and Output 11/01/16 11/01/16 11/02/16 15:00 23:00 07:00 Intake Total 150 ml 1400 ml 835 ml Output Total 800 ml 950 ml Balance 150 ml 600 ml -115 ml BREANNA PATEL MD Nov 02, 2016 14:44
[2016-11-02] MEDS: IV 1/2 NORMAL SALINE 1,000 ML IV SCH (14:45)
[2016-11-02] MEDS: IRON SUCROSE COMPLEX 400 MG in IV NORMAL SALINE 250ML 250 ML IV SCH (15:00)
[2016-11-02 16:00] VITALS: BP 119/60
[2016-11-02 20:00] VITALS: BP 135/74
[2016-11-02] MEDS: SIMVASTATIN 40 MG TABLET. PO SCH (20:19)
[2016-11-02] MEDS: INSULIN DETEMIR 300 UNITS/3 ML INSULN.PEN. SQ SCH (20:21)
[2016-11-02] MEDS: ZOLPIDEM 5 MG TABLET. PO PRN (20:23)
[2016-11-02 23:58] VITALS: BP 100/59
[2016-11-03] MEDS: ALBUTEROL SULFATE 2.5 MG/3 ML NEBU. NEB PRN ×4 (01:42→19:34)
[2016-11-03 04:00] VITALS: BP 136/67
[2016-11-03] MEDS: PIPERACILLIN/TAZOBACTAM 4.5 GM in IV NORMAL SALINE 100ML 100 ML IV SCH ×3 (06:22→17:02)
[2016-11-03] MEDS: IV 1/2 NORMAL SALINE 1,000 ML IV SCH ×3 (06:24→20:39)
[2016-11-03 07:06] LABS: BASO % 0 % (0-3); EOS % 0 % (0-3); HEMATOCRIT 28.2 % (36.0-47.0); HEMOGLOBIN 8.7 g/dL (12.0-15.5); LYMPH # 1.2 x10^3/uL (1.0-4.8); LYMPH % 20 % (24-48); MEAN CORPUSCULAR HEMOGLOBIN 24 pg (25-35); MEAN CORPUSCULAR HGB CONC 31 g/dL (31-37); MEAN CORPUSCULAR VOLUME 78 fL (79-100); MONO % 10 % (0-9); NEUT % 71 % (31-73); PLATELET COUNT 243 x10^3/uL (140-400); RED CELL DISTRIBUTION WIDTH 19.4 % (11.5-14.5)
[2016-11-03 07:08] LABS: CALCIUM 8.5 mg/dL (8.5-10.1); CREATININE 1.9 mg/dL (0.6-1.0); GFR 28.9; POTASSIUM 3.8 mmol/L (3.5-5.1)
[2016-11-03] MEDS: INSULIN ASPART 300 UNITS/3 ML INSULN.PEN SQ SCH ×3 (07:30→17:16)
[2016-11-03] MEDS: BUDESONIDE 0.5 MG/2 ML NEBU NEB SCH ×2 (08:03→19:35)
[2016-11-03] MEDS: ESCITALOPRAM 5 MG TABLET. PO SCH (08:03)
[2016-11-03] MEDS: CETIRIZINE HCL 10 MG TABLET PO SCH (08:03)
[2016-11-03] MEDS: PANTOPRAZOLE 40 MG TABLET. PO SCH (08:03)
[2016-11-03] MEDS: FERROUS SULFATE 325 MG TABLET PO SCH (08:03)
[2016-11-03] MEDS: GUAIFENESIN ER 600 MG TABLET.ER PO SCH ×2 (08:03→20:44)
[2016-11-03] MEDS: DILTIAZEM HCL 120 MG CAP.ER.24H PO SCH (08:04)
[2016-11-03] MEDS: GABAPENTIN 400 MG CAPSULE. PO SCH ×3 (08:04→20:44)
[2016-11-03] MEDS: IRON SUCROSE COMPLEX 400 MG in IV NORMAL SALINE 250ML 250 ML IV SCH (08:05)
[2016-11-03] MEDS: NYSTATIN 100,000 UNIT/GM TOPICAL CREAM 15GM TUBE. TP SCH ×2 (08:05→21:00)
[2016-11-03] MEDS: HYDROCODONE/APAP 5/325MG TABLET. PO PRN (08:07)
[2016-11-03 08:23] VITALS: BP 133/69
--- NOTE | 2016-11-03 08:29 | PDOC ---
Infectious Disease Note Subjective Subjective awake, says feeling better ROS ROS no n/v/d/pain Vital Sign Vital Signs Vital Signs Date Time Temp Pulse Resp B/P Pulse Ox O2 Delivery O2 Flow Rate FiO2 11/03/16 08:23 99.9 90 20 133/69 93 Nasal Cannula 5.0 99.9 Physical Exam PHYSICAL EXAM GENERAL: NAD, Alert HEENT: PERRL, OC/OP NECK: Supple, no JVD, no LN LUNGS: Clear HEART: S1S2, no gallop, no murmur ABD: Soft, NT, no organomegaly, no rebound EXT: No edema, no cyanosis COURT ADMINISTRATOR: Alert, oriented x 3, no focal neurologic deficit SKIN: No rash IV: ok Labs Lab Laboratory Tests Test 11/02/16 12:58 11/02/16 18:31 11/02/16 20:18 11/03/16 06:22 Glucose (Fingerstick) 220mg/dL (70-99) 139mg/dL (70-99) 137mg/dL (70-99) White Blood Count 6.0x10^3/uL (4.0-11.0) Red Blood Count 3.60x10^6/uL (3.50-5.40) Hemoglobin 8.7g/dL (12.0-15.5) Hematocrit 28.2% (36.0-47.0) Mean Corpuscular Volume 78fL (79-100) Mean Corpuscular Hemoglobin 24pg (25-35) Mean Corpuscular Hemoglobin Concent 31g/dL (31-37) Red Cell Distribution Width 19.4% (11.5-14.5) Platelet Count 243x10^3/uL (140-400) Neutrophils (%) (Auto) 71% (31-73) Lymphocytes (%) (Auto) 20% (24-48) Monocytes (%) (Auto) 10% (0-9) Eosinophils (%) (Auto) 0% (0-3) Basophils (%) (Auto) 0% (0-3) Neutrophils # (Auto) 4.2x10^3uL (1.8-7.7) Lymphocytes # (Auto) 1.2x10^3/uL (1.0-4.8) Monocytes # (Auto) 0.6x10^3/uL (0.0-1.1) Eosinophils # (Auto) 0.0x10^3/uL (0.0-0.7) Basophils # (Auto) 0.0x10^3/uL (0.0-0.2) Sodium Level 148mmol/L (136-145) Potassium Level 3.8mmol/L (3.5-5.1) Chloride Level 112mmol/L (98-107) Carbon Dioxide Level 25mmol/L (21-32) Anion Gap 11 (6-14) Blood Urea Nitrogen 13mg/dL (7-20) Creatinine 1.9mg/dL (0.6-1.0) Estimated GFR (Cockcroft-Gault) 28.9 Glucose Level 153mg/dL (70-99) Calcium Level 8.5mg/dL (8.5-10.1) Objective Assessment Fever Hypotension Change in MS ? sec to meds Recent hysterectomy Recent UTI Plan Plan of Care zosyn supportive care fluids MARSHALL CHAVES MD Nov 03, 2016 08:29
--- NOTE | 2016-11-03 08:44 | RAD ---
Portable chest, 11/03/2016: History: Shortness of breath Comparison is made to a study from 10/29/2016. The patient is rotated to the left. The heart is mildly enlarged. The pulmonary vascularity appears to be within normal limits. There is minimal linear atelectasis in the right base. No pulmonary consolidation is seen. There is no evidence of pleural fluid. IMPRESSION: 1. Unchanged cardiomegaly. 2. Minimal right basilar linear atelectasis.
--- NOTE | 2016-11-03 10:34 | PDOC ---
Renal-Progress Notes Subjective Notes Notes NONE, WEAK History of Present Illness Hx of present illness SAME Vitals Vitals Vital Signs Date Time Temp Pulse Resp B/P Pulse Ox O2 Delivery O2 Flow Rate FiO2 11/03/16 09:07 18 Nasal Cannula 5.0 11/03/16 08:23 99.9 90 133/69 93 99.9 Weight Weight [ ] I.O. Intake and Output Intake and Output 11/03/16 07:00 Intake Total 2182 ml Output Total 2300 ml Balance -118 ml Intake Oral 1200 ml IV Total 982 ml Output Urine Total 2300 ml Labs Labs Laboratory Tests Test 11/02/16 12:58 11/02/16 18:31 11/02/16 20:18 11/03/16 06:22 Glucose (Fingerstick) 220mg/dL (70-99) 139mg/dL (70-99) 137mg/dL (70-99) White Blood Count 6.0x10^3/uL (4.0-11.0) Red Blood Count 3.60x10^6/uL (3.50-5.40) Hemoglobin 8.7g/dL (12.0-15.5) Hematocrit 28.2% (36.0-47.0) Mean Corpuscular Volume 78fL (79-100) Mean Corpuscular Hemoglobin 24pg (25-35) Mean Corpuscular Hemoglobin Concent 31g/dL (31-37) Red Cell Distribution Width 19.4% (11.5-14.5) Platelet Count 243x10^3/uL (140-400) Neutrophils (%) (Auto) 71% (31-73) Lymphocytes (%) (Auto) 20% (24-48) Monocytes (%) (Auto) 10% (0-9) Eosinophils (%) (Auto) 0% (0-3) Basophils (%) (Auto) 0% (0-3) Neutrophils # (Auto) 4.2x10^3uL (1.8-7.7) Lymphocytes # (Auto) 1.2x10^3/uL (1.0-4.8) Monocytes # (Auto) 0.6x10^3/uL (0.0-1.1) Eosinophils # (Auto) 0.0x10^3/uL (0.0-0.7) Basophils # (Auto) 0.0x10^3/uL (0.0-0.2) Sodium Level 148mmol/L (136-145) Potassium Level 3.8mmol/L (3.5-5.1) Chloride Level 112mmol/L (98-107) Carbon Dioxide Level 25mmol/L (21-32) Anion Gap 11 (6-14) Blood Urea Nitrogen 13mg/dL (7-20) Creatinine 1.9mg/dL (0.6-1.0) Estimated GFR (Cockcroft-Gault) 28.9 Glucose Level 153mg/dL (70-99) Calcium Level 8.5mg/dL (8.5-10.1) Test 11/03/16 08:52 Glucose (Fingerstick) 172mg/dL (70-99) Micro Micro Microbiology 10/30/16 Blood Culture - Preliminary, Resulted NO GROWTH AFTER 4 DAYS Review of Systems Constitutional: yes: alert, oriented, weakness Ears/Nose/Throat: Yes: no symptom reported Eyes: Yes: no symptom reported Pulmonary: Yes no symptom reported Cardiovascular: Yes no symptom reported Gastrointestional: Yes: constipation Musculoskeletal: Yes: muscle stiffness Skin: Yes no symptom reported Physical Exam General Appearance: no apparent distress Skin: warm Respiratory: bilateral CTA Heart: S1S2 Abdomen: soft, bowel sounds present Genitourinary: bladder flat Neurology: alert, oriented, follow commands Assessment Assessment IMP BIGG-ATN - IMPROVING CR STILL 1.9 HYPOTENSION-BETTER S/P RECENT HYSTERECTOMY HYPERNATREMIA PLAN CONT IVF'S REMOVE TATE CANTU MD Nov 03, 2016 10:34
[2016-11-03] MEDS: methylPREDNISolone SOD SUCC PF 125 MG/2 ML VIAL. IV SCH ×2 (10:36→20:44)
[2016-11-03 10:57] LABS: NEG OBC FOB NEG; POS OBC FOB POS
[2016-11-03 12:00] VITALS: BP 134/75
--- NOTE | 2016-11-03 12:57 | PDOC ---
PULMONARY PROGRESS NOTES Subjective PT FEELS BETTER NOT MORE SOA Vitals Vital Signs Date Time Temp Pulse Resp B/P Pulse Ox O2 Delivery O2 Flow Rate FiO2 11/03/16 09:07 18 Nasal Cannula 5.0 11/03/16 08:23 99.9 90 133/69 93 99.9 General: Alert Lungs: Clear Cardiovascular: S1, S2 Abdomen: Soft, Non-tender Neuro Exam: Alert Extremities: Other Skin: Warm, Dry Labs Laboratory Tests Test 11/01/16 18:14 11/01/16 20:59 11/02/16 06:08 11/02/16 12:58 Glucose (Fingerstick) 123mg/dL (70-99) 136mg/dL (70-99) 220mg/dL (70-99) White Blood Count 4.5x10^3/uL (4.0-11.0) Red Blood Count 3.56x10^6/uL (3.50-5.40) Hemoglobin 8.7g/dL (12.0-15.5) Hematocrit 28.1% (36.0-47.0) Mean Corpuscular Volume 79fL (79-100) Mean Corpuscular Hemoglobin 24pg (25-35) Mean Corpuscular Hemoglobin Concent 31g/dL (31-37) Red Cell Distribution Width 19.3% (11.5-14.5) Platelet Count 207x10^3/uL (140-400) Neutrophils (%) (Auto) 58% (31-73) Lymphocytes (%) (Auto) 33% (24-48) Monocytes (%) (Auto) 9% (0-9) Eosinophils (%) (Auto) 0% (0-3) Basophils (%) (Auto) 0% (0-3) Neutrophils # (Auto) 2.6x10^3uL (1.8-7.7) Lymphocytes # (Auto) 1.5x10^3/uL (1.0-4.8) Monocytes # (Auto) 0.4x10^3/uL (0.0-1.1) Eosinophils # (Auto) 0.0x10^3/uL (0.0-0.7) Basophils # (Auto) 0.0x10^3/uL (0.0-0.2) Sodium Level 146mmol/L (136-145) Potassium Level 3.9mmol/L (3.5-5.1) Chloride Level 111mmol/L (98-107) Carbon Dioxide Level 25mmol/L (21-32) Anion Gap 10 (6-14) Blood Urea Nitrogen 14mg/dL (7-20) Creatinine 1.8mg/dL (0.6-1.0) Estimated GFR (Cockcroft-Gault) 30.7 Glucose Level 160mg/dL (70-99) Calcium Level 8.1mg/dL (8.5-10.1) Iron Level 12ug/dL (50-170) Total Iron Binding Capacity 215ug/dL (250-450) Iron Saturation 6% (15-34) Ferritin 193ng/mL (8-252) Vitamin B12 Level 578pg/mL (211-946) Folic Acid (LAB) 13.5ng/mL (>3.0) Test 11/02/16 18:31 11/02/16 20:18 11/03/16 06:22 11/03/16 08:52 Glucose (Fingerstick) 139mg/dL (70-99) 137mg/dL (70-99) 172mg/dL (70-99) White Blood Count 6.0x10^3/uL (4.0-11.0) Red Blood Count 3.60x10^6/uL (3.50-5.40) Hemoglobin 8.7g/dL (12.0-15.5) Hematocrit 28.2% (36.0-47.0) Mean Corpuscular Volume 78fL (79-100) Mean Corpuscular Hemoglobin 24pg (25-35) Mean Corpuscular Hemoglobin Concent 31g/dL (31-37) Red Cell Distribution Width 19.4% (11.5-14.5) Platelet Count 243x10^3/uL (140-400) Neutrophils (%) (Auto) 71% (31-73) Lymphocytes (%) (Auto) 20% (24-48) Monocytes (%) (Auto) 10% (0-9) Eosinophils (%) (Auto) 0% (0-3) Basophils (%) (Auto) 0% (0-3) Neutrophils # (Auto) 4.2x10^3uL (1.8-7.7) Lymphocytes # (Auto) 1.2x10^3/uL (1.0-4.8) Monocytes # (Auto) 0.6x10^3/uL (0.0-1.1) Eosinophils # (Auto) 0.0x10^3/uL (0.0-0.7) Basophils # (Auto) 0.0x10^3/uL (0.0-0.2) Sodium Level 148mmol/L (136-145) Potassium Level 3.8mmol/L (3.5-5.1) Chloride Level 112mmol/L (98-107) Carbon Dioxide Level 25mmol/L (21-32) Anion Gap 11 (6-14) Blood Urea Nitrogen 13mg/dL (7-20) Creatinine 1.9mg/dL (0.6-1.0) Estimated GFR (Cockcroft-Gault) 28.9 Glucose Level 153mg/dL (70-99) Calcium Level 8.5mg/dL (8.5-10.1) Test 11/03/16 10:00 11/03/16 12:16 Stool Occult Blood Negative (NEG) Glucose (Fingerstick) 194mg/dL (70-99) Laboratory Tests Test 11/02/16 12:58 11/02/16 18:31 11/02/16 20:18 11/03/16 06:22 Glucose (Fingerstick) 220mg/dL (70-99) 139mg/dL (70-99) 137mg/dL (70-99) White Blood Count 6.0x10^3/uL (4.0-11.0) Red Blood Count 3.60x10^6/uL (3.50-5.40) Hemoglobin 8.7g/dL (12.0-15.5) Hematocrit 28.2% (36.0-47.0) Mean Corpuscular Volume 78fL (79-100) Mean Corpuscular Hemoglobin 24pg (25-35) Mean Corpuscular Hemoglobin Concent 31g/dL (31-37) Red Cell Distribution Width 19.4% (11.5-14.5) Platelet Count 243x10^3/uL (140-400) Neutrophils (%) (Auto) 71% (31-73) Lymphocytes (%) (Auto) 20% (24-48) Monocytes (%) (Auto) 10% (0-9) Eosinophils (%) (Auto) 0% (0-3) Basophils (%) (Auto) 0% (0-3) Neutrophils # (Auto) 4.2x10^3uL (1.8-7.7) Lymphocytes # (Auto) 1.2x10^3/uL (1.0-4.8) Monocytes # (Auto) 0.6x10^3/uL (0.0-1.1) Eosinophils # (Auto) 0.0x10^3/uL (0.0-0.7) Basophils # (Auto) 0.0x10^3/uL (0.0-0.2) Sodium Level 148mmol/L (136-145) Potassium Level 3.8mmol/L (3.5-5.1) Chloride Level 112mmol/L (98-107) Carbon Dioxide Level 25mmol/L (21-32) Anion Gap 11 (6-14) Blood Urea Nitrogen 13mg/dL (7-20) Creatinine 1.9mg/dL (0.6-1.0) Estimated GFR (Cockcroft-Gault) 28.9 Glucose Level 153mg/dL (70-99) Calcium Level 8.5mg/dL (8.5-10.1) Test 11/03/16 08:52 11/03/16 10:00 11/03/16 12:16 Glucose (Fingerstick) 172mg/dL (70-99) 194mg/dL (70-99) Stool Occult Blood Negative (NEG) Medications Active Scripts Medications Dose Route/Sig Days Date Category Aspirin Ec (Aspirin) 81 Mg Tablet.dr 81 Mg PO DAILY 10/30/16 Reported Nystatin 15 Gm Cream..g. 1 [place] TP BID 10 08/08/16 Rx Ambien (Zolpidem Tartrate) 5 Mg Tablet 5 Mg PO PRN QHS PRN 08/08/16 Rx [place] 5-325 Tablet (Acetaminophen/Hydrocodone Bitart) 1 Each Tablet 1-2 Tab PO Q4-6HRS 07/30/16 Rx Gabapentin 800 Mg Tablet 800 Mg PO TID 07/28/16 Reported Victoza 3-[place] (Liraglutide) 0.6 Mg/0.1 Ml Pen.injctr 1.8 Mg SQ DAILY 07/28/16 Reported Omeprazole 40 Mg Capsule.dr 40 Mg PO DAILY 07/28/16 Reported Cyclobenzaprine Hcl 10 Mg Tablet 10 Mg PO TID 07/28/16 Reported Iron (Ferrous Sulfate) 325 Mg Tablet 325 Mg PO DAILY 07/28/16 Reported Valium (Diazepam) 5 Mg Tablet 5 Mg PO DAILY 07/28/16 Reported Lexapro (Escitalopram Oxalate) 5 Mg Tablet 5 Mg PO DAILY 07/28/16 Reported Fexofenadine Hcl 180 Mg Tablet 180 Mg PO DAILY 07/28/16 Reported Albuterol Sulfate Conc Neb Soln (Albuterol Sulfate) 2.5 Mg/0.5 Ml Vial.neb 2.5 Mg NEB Q4HRS PRN 07/28/16 Reported Simvastatin 40 Mg Tablet 40 Mg PO HS 07/28/16 Reported Diltiazem 24HR Cd (Diltiazem Hcl) 120 Mg Cap.er.24h 120 Mg PO DAILY 07/28/16 Reported Symbicort 160-4.5 Mcg Inhaler (Budesonide/Formoterol Fumarate) 10.2 Gm Hfa.aer.ad 2 Puff IH BID 07/28/16 Reported Novolog (Insulin Aspart) 100 Unit/1 Ml Cartridge 27 Unit SQ TIDAC 10/02/14 Reported Lantus (Insulin Glargine,Hum.rec.anlog) 100 Unit/1 Ml Vial 70 Unit SQ HS 10/02/14 Reported Impression . 1. Pneumonia 2. Acute exacerbation of asthma. 3. Chronic atrial fibrillation. 4. Sepsis POA with hypotension 5. Met and toxic encephalopathy Plan . Resp status is compensated Antibx hold sedating medication DVT and GI proph spoke with mother so far cultures negative GUMARO PYLE MD Nov 03, 2016 12:57
--- NOTE | 2016-11-03 13:37 | PDOC ---
PROGRESS NOTES Chief Complaint Chief Complaint 1. Pneumonia, sepsis 2. Acute exacerbation of asthma. 3. rapid on Chronic atrial fibrillation. 4. Sepsis POA with hypotension 5. Metabolic and toxic encephalopathy 6. Medication related mental status changes 7. anemia, 2/2 dilutional + recent sx history 8. BIGG , vasomotor plan: 1. fu with pulm, card, id get renal consulted 2. 1u PRBC transfusion 11/01 3. ivf given low po intake, 1/2 NS 4. decrease insulin to levemir 40u qhs, aspart 15u tid 5. add cough meds dc valium, flexiril, add xanax prn add solumedrol 60mg iv bid check cdiff ok to transfer out of ICU dvt ppx check iron, ferritin, fa, vitb12, FOBT add iron iv daily x5 History of Present Illness History of Present Illness Pt seen after transferred to ICU 10/31. Pt drowsy and unable to answer questions or hold a conversation. Rapid response was called this AM with patient being transferred to ICU. Able to ascertain that pt took several sedative medications. Possible a mix of [place], Ambien, and Flexeril. pt still cough a lot, but feels sob slightly better, hb 7 Cr 1.8 low po intake, more sob overnight diarrhea Vitals Vitals Vital Signs Date Time Temp Pulse Resp B/P Pulse Ox O2 Delivery O2 Flow Rate FiO2 11/03/16 13:06 96 Nasal Cannula 5.0 11/03/16 12:00 99.8 93 18 134/75 99.8 Physical Exam General: Alert, Oriented X3, Cooperative, No acute distress Heart: Regular rate, Normal S1 Lungs: Clear Abdomen: Normal bowel sounds, Soft, No tenderness Extremities: No cyanosis Skin: No breakdown Labs LABS Laboratory Tests Test 11/02/16 18:31 11/02/16 20:18 11/03/16 06:22 11/03/16 08:52 Glucose (Fingerstick) 139mg/dL (70-99) 137mg/dL (70-99) 172mg/dL (70-99) White Blood Count 6.0x10^3/uL (4.0-11.0) Red Blood Count 3.60x10^6/uL (3.50-5.40) Hemoglobin 8.7g/dL (12.0-15.5) Hematocrit 28.2% (36.0-47.0) Mean Corpuscular Volume 78fL (79-100) Mean Corpuscular Hemoglobin 24pg (25-35) Mean Corpuscular Hemoglobin Concent 31g/dL (31-37) Red Cell Distribution Width 19.4% (11.5-14.5) Platelet Count 243x10^3/uL (140-400) Neutrophils (%) (Auto) 71% (31-73) Lymphocytes (%) (Auto) 20% (24-48) Monocytes (%) (Auto) 10% (0-9) Eosinophils (%) (Auto) 0% (0-3) Basophils (%) (Auto) 0% (0-3) Neutrophils # (Auto) 4.2x10^3uL (1.8-7.7) Lymphocytes # (Auto) 1.2x10^3/uL (1.0-4.8) Monocytes # (Auto) 0.6x10^3/uL (0.0-1.1) Eosinophils # (Auto) 0.0x10^3/uL (0.0-0.7) Basophils # (Auto) 0.0x10^3/uL (0.0-0.2) Sodium Level 148mmol/L (136-145) Potassium Level 3.8mmol/L (3.5-5.1) Chloride Level 112mmol/L (98-107) Carbon Dioxide Level 25mmol/L (21-32) Anion Gap 11 (6-14) Blood Urea Nitrogen 13mg/dL (7-20) Creatinine 1.9mg/dL (0.6-1.0) Estimated GFR (Cockcroft-Gault) 28.9 Glucose Level 153mg/dL (70-99) Calcium Level 8.5mg/dL (8.5-10.1) Test 11/03/16 10:00 11/03/16 12:16 Stool Occult Blood Negative (NEG) Glucose (Fingerstick) 194mg/dL (70-99) Review of Systems Review of Systems no fever, chills, chest pain Assessment and Plan Assessmemt and Plan Problems Medical Problems: (1) Healthcare-associated pneumonia Status: Acute (2) Hyperglycemia Status: Acute Problems: Comment Review of Relevant I have reviewed the following items emery (where applicable) has been applied. Labs Laboratory Tests Test 11/01/16 18:14 11/01/16 20:59 11/02/16 06:08 11/02/16 12:58 Glucose (Fingerstick) 123mg/dL (70-99) 136mg/dL (70-99) 220mg/dL (70-99) White Blood Count 4.5x10^3/uL (4.0-11.0) Red Blood Count 3.56x10^6/uL (3.50-5.40) Hemoglobin 8.7g/dL (12.0-15.5) Hematocrit 28.1% (36.0-47.0) Mean Corpuscular Volume 79fL (79-100) Mean Corpuscular Hemoglobin 24pg (25-35) Mean Corpuscular Hemoglobin Concent 31g/dL (31-37) Red Cell Distribution Width 19.3% (11.5-14.5) Platelet Count 207x10^3/uL (140-400) Neutrophils (%) (Auto) 58% (31-73) Lymphocytes (%) (Auto) 33% (24-48) Monocytes (%) (Auto) 9% (0-9) Eosinophils (%) (Auto) 0% (0-3) Basophils (%) (Auto) 0% (0-3) Neutrophils # (Auto) 2.6x10^3uL (1.8-7.7) Lymphocytes # (Auto) 1.5x10^3/uL (1.0-4.8) Monocytes # (Auto) 0.4x10^3/uL (0.0-1.1) Eosinophils # (Auto) 0.0x10^3/uL (0.0-0.7) Basophils # (Auto) 0.0x10^3/uL (0.0-0.2) Sodium Level 146mmol/L (136-145) Potassium Level 3.9mmol/L (3.5-5.1) Chloride Level 111mmol/L (98-107) Carbon Dioxide Level 25mmol/L (21-32) Anion Gap 10 (6-14) Blood Urea Nitrogen 14mg/dL (7-20) Creatinine 1.8mg/dL (0.6-1.0) Estimated GFR (Cockcroft-Gault) 30.7 Glucose Level 160mg/dL (70-99) Calcium Level 8.1mg/dL (8.5-10.1) Iron Level 12ug/dL (50-170) Total Iron Binding Capacity 215ug/dL (250-450) Iron Saturation 6% (15-34) Ferritin 193ng/mL (8-252) Vitamin B12 Level 578pg/mL (211-946) Folic Acid (LAB) 13.5ng/mL (>3.0) Test 11/02/16 18:31 11/02/16 20:18 11/03/16 06:22 11/03/16 08:52 Glucose (Fingerstick) 139mg/dL (70-99) 137mg/dL (70-99) 172mg/dL (70-99) White Blood Count 6.0x10^3/uL (4.0-11.0) Red Blood Count 3.60x10^6/uL (3.50-5.40) Hemoglobin 8.7g/dL (12.0-15.5) Hematocrit 28.2% (36.0-47.0) Mean Corpuscular Volume 78fL (79-100) Mean Corpuscular Hemoglobin 24pg (25-35) Mean Corpuscular Hemoglobin Concent 31g/dL (31-37) Red Cell Distribution Width 19.4% (11.5-14.5) Platelet Count 243x10^3/uL (140-400) Neutrophils (%) (Auto) 71% (31-73) Lymphocytes (%) (Auto) 20% (24-48) Monocytes (%) (Auto) 10% (0-9) Eosinophils (%) (Auto) 0% (0-3) Basophils (%) (Auto) 0% (0-3) Neutrophils # (Auto) 4.2x10^3uL (1.8-7.7) Lymphocytes # (Auto) 1.2x10^3/uL (1.0-4.8) Monocytes # (Auto) 0.6x10^3/uL (0.0-1.1) Eosinophils # (Auto) 0.0x10^3/uL (0.0-0.7) Basophils # (Auto) 0.0x10^3/uL (0.0-0.2) Sodium Level 148mmol/L (136-145) Potassium Level 3.8mmol/L (3.5-5.1) Chloride Level 112mmol/L (98-107) Carbon Dioxide Level 25mmol/L (21-32) Anion Gap 11 (6-14) Blood Urea Nitrogen 13mg/dL (7-20) Creatinine 1.9mg/dL (0.6-1.0) Estimated GFR (Cockcroft-Gault) 28.9 Glucose Level 153mg/dL (70-99) Calcium Level 8.5mg/dL (8.5-10.1) Test 11/03/16 10:00 11/03/16 12:16 Stool Occult Blood Negative (NEG) Glucose (Fingerstick) 194mg/dL (70-99) Laboratory Tests Test 11/02/16 18:31 11/02/16 20:18 11/03/16 06:22 11/03/16 08:52 Glucose (Fingerstick) 139mg/dL (70-99) 137mg/dL (70-99) 172mg/dL (70-99) White Blood Count 6.0x10^3/uL (4.0-11.0) Red Blood Count 3.60x10^6/uL (3.50-5.40) Hemoglobin 8.7g/dL (12.0-15.5) Hematocrit 28.2% (36.0-47.0) Mean Corpuscular Volume 78fL (79-100) Mean Corpuscular Hemoglobin 24pg (25-35) Mean Corpuscular Hemoglobin Concent 31g/dL (31-37) Red Cell Distribution Width 19.4% (11.5-14.5) Platelet Count 243x10^3/uL (140-400) Neutrophils (%) (Auto) 71% (31-73) Lymphocytes (%) (Auto) 20% (24-48) Monocytes (%) (Auto) 10% (0-9) Eosinophils (%) (Auto) 0% (0-3) Basophils (%) (Auto) 0% (0-3) Neutrophils # (Auto) 4.2x10^3uL (1.8-7.7) Lymphocytes # (Auto) 1.2x10^3/uL (1.0-4.8) Monocytes # (Auto) 0.6x10^3/uL (0.0-1.1) Eosinophils # (Auto) 0.0x10^3/uL (0.0-0.7) Basophils # (Auto) 0.0x10^3/uL (0.0-0.2) Sodium Level 148mmol/L (136-145) Potassium Level 3.8mmol/L (3.5-5.1) Chloride Level 112mmol/L (98-107) Carbon Dioxide Level 25mmol/L (21-32) Anion Gap 11 (6-14) Blood Urea Nitrogen 13mg/dL (7-20) Creatinine 1.9mg/dL (0.6-1.0) Estimated GFR (Cockcroft-Gault) 28.9 Glucose Level 153mg/dL (70-99) Calcium Level 8.5mg/dL (8.5-10.1) Test 11/03/16 10:00 11/03/16 12:16 Stool Occult Blood Negative (NEG) Glucose (Fingerstick) 194mg/dL (70-99) Microbiology 10/30/16 Blood Culture - Preliminary, Resulted NO GROWTH AFTER 4 DAYS Medications Current Medications Sodium Chloride 10 ml 10 ml QSHIFT PRN IV AFTER MEDS AND BLOOD DRAWS; Start 09/02 at 23:30 Sodium Chloride (Iv Sodium Chloride 0.9% 500ml Bag) 500 ml @ 500 mls/hr 1X ONCE IV Last administered on 10/29/16 23:43; Start 10/29/16 at 23:45; Stop at 00:44; Status DC Albuterol/ Ipratropium 3 ml 3 ml 1X ONCE NEB Last administered on 10/30/16 00 :31; Start 10/30/16 at 00:15; Stop 10/30/16 at 00:57; Status DC Piperacillin Sod/ Tazobactam Sod 3.375 gm/Sodium Chloride 50 ml @ 100 mls/hr 1X ONCE IV Last administered on 10/30/16 02:38; Start 10/30/16 at 01:00; Stop 10/30/16 at 01:29; Status DC Ciprofloxacin Lactate (Cipro 400mg Premix) 200 ml @ 200 mls/hr 1X ONCE IV Last administered on 10/30/16 03:35; Start 10/30/16 at 01:30; Stop 10/30/16 at 02:29; Status DC Vancomycin HCl (Vanco Per Pharmacy) 1 each PRN DAILY PRN MC SEE COMMENTS Last administered on 11/01/16 14:32; Start 10/30/16 at 00:30; Stop 11/02/16 at 07:27 ; Status DC Albuterol/ Ipratropium (Duoneb) 3 ml RTQID NEB Last administered on 10/31/16 07:06; Start 10/30/16 at 08:00; Stop 10/31/16 at 07:59; Status DC Piperacillin Sod/ Tazobactam Sod 1 each 1 each PRN DAILY PRN MC SEE COMMENTS; Start 10/30/16 at 00:30; Stop 11/01/16 at 13:16; Status DC Ciprofloxacin Lactate (Cipro 400mg Premix) 200 ml @ 200 mls/hr Q12HR IV Last administered on 11/01/16 21:38; Start 10/30/16 at 21:00; Stop 11/02/16 at 07:27 ; Status DC Famotidine (Pepcid) 20 mg BID PO Last administered on 10/30/16 21:33; Start at 02:00; Stop 11/01/16 at 09:19; Status DC Insulin Human Regular 10 unit 10 unit 1X ONCE IV Last administered on 02:33; Start 10/30/16 at 01:00; Stop 10/30/16 at 01:01; Status DC Vancomycin HCl 2 gm/Sodium Chloride 500 ml @ 250 mls/hr 1X ONCE IV Last administered on 10/30/16 04:56; Start 10/30/16 at 05:00; Stop 10/30/16 at 06:59 ; Status DC Piperacillin Sod/ Tazobactam Sod/ Sodium Chloride (Zosyn/Iv Sodium Chloride 0.9 % 100ml) 100 ml @ 200 mls/hr Q6HRS IV Last administered on 11/03/16 12:33; Start 10/30/16 at 08:00 Promethazine HCl/ Codeine (Phenergan With Codeine) 5 ml PRN Q4HRS PRN PO COUGH Last administered on 10/30/16 21:44; Start 10/30/16 at 10:15 Acetaminophen/ Hydrocodone Bitart 1 tab 1 tab PRN Q4HRS PRN PO PAIN Last administered on 10/30/16 10:30; Start 10/30/16 at 10:15; Stop 10/30/16 at 11:31 ; Status DC Vancomycin HCl/ Sodium Chloride (Iv Sodium Chloride 0.9% 500ml Bag) 500 ml @ 250 mls/hr Q12H IV Last administered on 11/02/16 04:42; Start 10/30/16 at 17: 00; Stop 11/02/16 at 07:27; Status DC Vancomycin HCl 1 each 1X ONCE MC Last administered on 10/31/16 16:30; Start 10/31/16 at 16:30; Stop 10/31/16 at 16:31; Status DC Cyclobenzaprine HCl (Flexeril) 10 mg TID PO Last administered on 10/30/16 21: 33; Start 10/30/16 at 14:00; Stop 11/01/16 at 10:21; Status DC Diazepam (Valium) 5 mg DAILY PO Last administered on 11/01/16 09:00; Start at 12:30; Stop 11/01/16 at 10:21; Status DC Diltiazem HCl (Cardizem 24hr Cd) 120 mg DAILY PO Last administered on 08:04; Start 10/30/16 at 12:30 Escitalopram Oxalate (Lexapro) 5 mg DAILY PO Last administered on 11/03/16 08: 03; Start 10/30/16 at 12:30 Ferrous Sulfate (Feosol) 325 mg DAILY PO Last administered on 11/03/16 08:03; Start 10/30/16 at 12:30 Acetaminophen/ Hydrocodone Bitart (Lortab 5/325) 1 tab PRN QID PRN PO MODERATE PAIN Last administered on 11/03/16 08:07; Start 10/30/16 at 11:30 Nystatin (Mycostatin) 1 [place]ianney BID TP Last administered on 11/03/16 08:05; Start 10/30/16 at 12:30 Simvastatin (Zocor) 40 mg HS PO Last administered on 11/02/16 20:19; Start at 21:00 Zolpidem Tartrate (Ambien) 5 mg PRN QHS PRN PO INSOMNIA Last administered on 20:23; Start 10/30/16 at 11:30 Albuterol Sulfate (Ventolin Neb Soln) 2.5 mg PRN Q4HRS PRN NEB SHORTNESS OF BREATH Last administered on 11/03/16 13:06; Start 10/30/16 at 11:45 Budesonide (Pulmicort) 0.5 mg RTBID NEB Last administered on 11/03/16 08:03; Start 10/30/16 at 20:00 Non-Formulary Medication 500 mg QID PO ; Start 10/30/16 at 13:00; Stop 10/30/16 at 13:00; Status DC Cetirizine HCl (Zyrtec) 10 mg DAILY PO Last administered on 11/03/16 08:03; Start 10/30/16 at 12:30 Gabapentin (Neurontin) 800 mg TID PO Last administered on 11/03/16 08:04; Start 10/30/16 at 14:00 Insulin Aspart (Novolog) 27 units TIDAC SQ Last administered on 10/31/16 13:49 ; Start 10/30/16 at 12:00; Stop 11/01/16 at 10:21; Status DC Insulin Detemir (Levemir) 70 units QHS SQ Last administered on 10/31/16 21:10 ; Start 10/30/16 at 21:00; Stop 11/01/16 at 13:13; Status DC Non-Formulary Medication 1.8 mg DAILY SQ ; Start 10/31/16 at 09:00; Stop at 07:09; Status DC Pantoprazole Sodium (Protonix) 40 mg DAILYAC PO Last administered on 11/03/16 08:03; Start 10/30/16 at 12:30 Aspirin (Ecotrin) 81 mg DAILYWBKFT PO ; Start 10/30/16 at 12:30; Stop 10/31/16 at 10:40; Status DC Acetaminophen/ Hydrocodone Bitart (Lortab 5/325) 2 tab PRN QID PRN PO SEVERE PAIN Last administered on 11/01/16 09:31; Start 10/30/16 at 11:45 Lisinopril (Prinivil) 10 mg DAILY PO Last administered on 10/30/16 17:13; Start 10/30/16 at 17:00; Stop 10/31/16 at 10:37; Status DC Throat Lozenges 1 abena 1 abena PRN Q2HRS PRN PO SORE THROAT; Start 10/30/16 at 18: 15 Sodium Chloride (Iv Sodium Chloride 0.9% 500ml Bag) 500 ml @ 500 mls/hr 1X ONCE IV Last administered on 10/31/16 08:00; Start 10/31/16 at 08:30; Stop at 09:29; Status DC Iohexol (Omnipaque 240 Mg/ml) 30 ml 1X ONCE PO Last administered on 10/31/16 09:00; Start 10/31/16 at 09:00; Stop 10/31/16 at 09:03; Status DC Info 1 each 1 each PRN DAILY PRN MC SEE COMMENTS; Start 10/31/16 at 09:15; Stop 11/02/16 at 09:14; Status DC Sodium Chloride (Iv Sodium Chloride 0.45%) 1,000 ml @ 125 mls/hr 1X ONCE IV Last administered on 10/31/16 11:24; Start 10/31/16 at 11:00; Stop 10/31/16 at 19:00; Status DC Ondansetron HCl (Zofran) 4 mg STK-MED ONCE .ROUTE ; Start 11/01/16 at 09:25; Stop 11/01/16 at 09:26; Status DC Insulin Aspart (Novolog) 20 units TIDAC SQ Last administered on 11/02/16 13:03 ; Start 11/01/16 at 11:30; Stop 11/02/16 at 14:43; Status DC Alprazolam 0.25 mg 0.25 mg PRN Q8HRS PRN PO ANXIETY / AGITATION; Start at 10:30 Sodium Chloride (Iv Sodium Chloride 0.45%) 1,000 ml @ 75 mls/hr 1X ONCE IV Last administered on 11/01/16 13:57; Start 11/01/16 at 10:30; Stop 11/01/16 at 23:49; Status DC Insulin Detemir (Levemir) 60 units QHS SQ ; Start 11/01/16 at 21:00; Stop at 14:43; Status DC Piperacillin Sod/ Tazobactam Sod (Zosyn Per Pharmacy) 1 each PRN DAILY PRN MC SEE COMMENTS; Start 11/01/16 at 13:15; Stop 11/01/16 at 13:16; Status DC Guaifenesin (Mucinex) 600 mg BID PO Last administered on 11/03/16 08:03; Start 11/01/16 at 14:00 Guaifenesin (Robitussin) 200 mg PRN Q4HRS PRN PO COUGH; Start 11/01/16 at 13:15 Ondansetron HCl (Zofran) 4 mg STK-MED ONCE .ROUTE ; Start 11/01/16 at 09:25; Stop 11/02/16 at 08:23; Status DC Insulin Aspart (Novolog) 15 units TIDAC SQ Last administered on 11/03/16 12:50 ; Start 11/02/16 at 16:30 Insulin Detemir 40 units 40 units QHS SQ Last administered on 11/02/16 20:21; Start 11/02/16 at 21:00 Sodium Chloride 1,000 ml @ 150 mls/hr Q6H40M IV Last administered on 06:24; Start 11/02/16 at 14:45 Iron Sucrose/ Sodium Chloride (Venofer/Iv Sodium Chloride 0.9% 250ml) 270 ml @ 90 mls/hr DAILY IV Last administered on 11/03/16 08:05; Start 11/02/16 at 15: 00; Stop 11/06/16 at 14:59 Methylprednisolone Sodium Succinate (Solu-Medrol 125mg Vial) 60 mg Q12HR IV Last administered on 11/03/16 10:36; Start 11/03/16 at 10:00 Active Scripts Active Nystatin 15 Gm Cream..g. 1 [place] TP BID 10 Days Ambien (Zolpidem Tartrate) 5 Mg Tablet 5 Mg PO PRN QHS PRN [place] 5-325 Tablet (Acetaminophen/Hydrocodone Bitart) 1 Each Tablet 1-2 Tab PO Q4-6HRS Reported Aspirin Ec (Aspirin) 81 Mg Tablet.dr 81 Mg PO DAILY Gabapentin 800 Mg Tablet 800 Mg PO TID Victoza 3-[place] (Liraglutide) 0.6 Mg/0.1 Ml Pen.injctr 1.8 Mg SQ DAILY Omeprazole 40 Mg Capsule.dr 40 Mg PO DAILY Cyclobenzaprine Hcl 10 Mg Tablet 10 Mg PO TID Iron (Ferrous Sulfate) 325 Mg Tablet 325 Mg PO DAILY Valium (Diazepam) 5 Mg Tablet 5 Mg PO DAILY Lexapro (Escitalopram Oxalate) 5 Mg Tablet 5 Mg PO DAILY Fexofenadine Hcl 180 Mg Tablet 180 Mg PO DAILY Albuterol Sulfate Conc Neb Soln (Albuterol Sulfate) 2.5 Mg/0.5 Ml Vial.neb 2.5 Mg NEB Q4HRS PRN Simvastatin 40 Mg Tablet 40 Mg PO HS Diltiazem 24HR Cd (Diltiazem Hcl) 120 Mg Cap.er.24h 120 Mg PO DAILY Symbicort 160-4.5 Mcg Inhaler (Budesonide/Formoterol Fumarate) 10.2 Gm Hfa.aer.ad 2 Puff IH BID Novolog (Insulin Aspart) 100 Unit/1 Ml Cartridge 27 Unit SQ TIDAC Lantus (Insulin Glargine,Hum.rec.anlog) 100 Unit/1 Ml Vial 70 Unit SQ HS Vitals/I & O Vital Sign - Last 24 Hours 11/02/16 11/02/16 11/02/16 11/02/16 16:00 20:00 20:00 20:12 Temp 98.8 100.2 98.8 100.2 Pulse 100 100 Resp 20 22 B/P 119/60 135/74 Pulse Ox 94 95 95 O2 Delivery Nasal Cannula Nasal Cannula Room Air Nasal Cannula O2 Flow Rate 2.0 2.0 2.0 3.0 11/02/16 11/02/16 11/02/16 11/03/16 20:19 21:19 23:58 00:15 Temp 99.3 99.3 Pulse 91 Resp 22 18 B/P 100/59 Pulse Ox 94 93 94 O2 Delivery BiPAP/CPAP Nasal Cannula Nasal Cannula O2 Flow Rate 2.0 2.0 11/03/16 11/03/16 11/03/16 11/03/16 01:42 04:00 08:00 08:03 Temp 99.9 99.9 Pulse 90 Resp 22 B/P 136/67 Pulse Ox 90 92 92 O2 Delivery Nasal Cannula Nasal Cannula Nasal Cannula Nasal Cannula O2 Flow Rate 5.0 5.0 5.0 5.0 11/03/16 11/03/16 11/03/16 11/03/16 08:04 08:07 08:23 09:07 Temp 99.9 99.9 Pulse 90 90 Resp 18 20 18 B/P 133/69 133/69 Pulse Ox 93 O2 Delivery Nasal Cannula Nasal Cannula Nasal Cannula O2 Flow Rate 5.0 5.0 5.0 11/03/16 11/03/16 12:00 13:06 Temp 99.8 99.8 Pulse 93 Resp 18 B/P 134/75 Pulse Ox 96 96 O2 Delivery Nasal Cannula Nasal Cannula O2 Flow Rate 5.0 5.0 Intake and Output 11/02/16 11/02/16 11/03/16 14:59 22:59 06:59 Intake Total 750 ml 1432 ml Output Total 1400 ml 900 ml Balance -650 ml 532 ml BREANNA PATEL MD Nov 03, 2016 13:36
[2016-11-03 16:00] VITALS: BP 140/72
[2016-11-03 20:00] VITALS: BP 160/90
[2016-11-03] MEDS: ZOLPIDEM 5 MG TABLET. PO PRN (20:44)
[2016-11-03] MEDS: SIMVASTATIN 40 MG TABLET. PO SCH (20:44)
[2016-11-03] MEDS ORDERED: DEXTROSE 50% 25 GM / 50ML DISP.SYRIN. IV PRN (20:45)
[2016-11-03] MEDS: INSULIN DETEMIR 300 UNITS/3 ML INSULN.PEN. SQ SCH (20:50)
[2016-11-03] MEDS ORDERED: INSULIN ASPART 300 UNITS/3 ML INSULN.PEN SQ ONE ×2 (21:30→23:45)
[2016-11-03 23:00] VITALS: BP 158/85
[2016-11-04] MEDS: PIPERACILLIN/TAZOBACTAM 4.5 GM in IV NORMAL SALINE 100ML 100 ML IV SCH ×5 (01:22→23:54)
[2016-11-04 03:00] VITALS: BP 154/91
[2016-11-04] MEDS: IV 1/2 NORMAL SALINE 1,000 ML IV SCH ×3 (03:01→21:43)
[2016-11-04 05:11] LABS: BASO % 0 % (0-3); EOS % 0 % (0-3); HEMATOCRIT 28.6 % (36.0-47.0); HEMOGLOBIN 9.1 g/dL (12.0-15.5); LYMPH # 0.5 x10^3/uL (1.0-4.8); LYMPH % 13 % (24-48); MEAN CORPUSCULAR HEMOGLOBIN 25 pg (25-35); MEAN CORPUSCULAR HGB CONC 32 g/dL (31-37); MEAN CORPUSCULAR VOLUME 78 fL (79-100); MONO % 7 % (0-9); NEUT % 80 % (31-73); PLATELET COUNT 220 x10^3/uL (140-400); RED BLOOD COUNT 3.66 x10^6/uL (3.50-5.40); RED CELL DISTRIBUTION WIDTH 19.6 % (11.5-14.5); WHITE BLOOD COUNT 3.7 x10^3/uL (4.0-11.0)
[2016-11-04 06:23] LABS: CALCIUM 8.3 mg/dL (8.5-10.1); CREATININE 1.7 mg/dL (0.6-1.0); GFR 32.8; POTASSIUM 4.3 mmol/L (3.5-5.1)
[2016-11-04] MEDS: BUDESONIDE 0.5 MG/2 ML NEBU NEB SCH ×2 (07:21→20:44)
[2016-11-04] MEDS: ALBUTEROL SULFATE 2.5 MG/3 ML NEBU. NEB PRN ×3 (07:21→15:18)
--- NOTE | 2016-11-04 07:47 | PDOC ---
PULMONARY PROGRESS NOTES Subjective has sob, cough, better, no cp, no runny nose. has eds, snoring Vitals Vital Signs Date Time Temp Pulse Resp B/P Pulse Ox O2 Delivery O2 Flow Rate FiO2 11/04/16 07:22 93 Room Air 11/04/16 03:00 98.9 86 20 154/91 5.0 98.9 Comments ros as mentioned as above other sys otherwise neg ROS: No Nausea General: Alert Lungs: Clear Cardiovascular: S1, S2 Abdomen: Soft, Non-tender Neuro Exam: Alert Extremities: Other Skin: Warm, Dry Labs Laboratory Tests Test 11/02/16 12:58 11/02/16 18:31 11/02/16 20:18 11/03/16 06:22 Glucose (Fingerstick) 220mg/dL (70-99) 139mg/dL (70-99) 137mg/dL (70-99) White Blood Count 6.0x10^3/uL (4.0-11.0) Red Blood Count 3.60x10^6/uL (3.50-5.40) Hemoglobin 8.7g/dL (12.0-15.5) Hematocrit 28.2% (36.0-47.0) Mean Corpuscular Volume 78fL (79-100) Mean Corpuscular Hemoglobin 24pg (25-35) Mean Corpuscular Hemoglobin Concent 31g/dL (31-37) Red Cell Distribution Width 19.4% (11.5-14.5) Platelet Count 243x10^3/uL (140-400) Neutrophils (%) (Auto) 71% (31-73) Lymphocytes (%) (Auto) 20% (24-48) Monocytes (%) (Auto) 10% (0-9) Eosinophils (%) (Auto) 0% (0-3) Basophils (%) (Auto) 0% (0-3) Neutrophils # (Auto) 4.2x10^3uL (1.8-7.7) Lymphocytes # (Auto) 1.2x10^3/uL (1.0-4.8) Monocytes # (Auto) 0.6x10^3/uL (0.0-1.1) Eosinophils # (Auto) 0.0x10^3/uL (0.0-0.7) Basophils # (Auto) 0.0x10^3/uL (0.0-0.2) Sodium Level 148mmol/L (136-145) Potassium Level 3.8mmol/L (3.5-5.1) Chloride Level 112mmol/L (98-107) Carbon Dioxide Level 25mmol/L (21-32) Anion Gap 11 (6-14) Blood Urea Nitrogen 13mg/dL (7-20) Creatinine 1.9mg/dL (0.6-1.0) Estimated GFR (Cockcroft-Gault) 28.9 Glucose Level 153mg/dL (70-99) Calcium Level 8.5mg/dL (8.5-10.1) Test 11/03/16 08:52 11/03/16 10:00 11/03/16 12:16 11/03/16 17:04 Glucose (Fingerstick) 172mg/dL (70-99) 194mg/dL (70-99) 350mg/dL (70-99) Stool Occult Blood Negative (NEG) Test 11/03/16 20:46 11/03/16 22:34 11/04/16 04:15 Glucose (Fingerstick) 397mg/dL (70-99) 382mg/dL (70-99) White Blood Count 3.7x10^3/uL (4.0-11.0) Red Blood Count 3.66x10^6/uL (3.50-5.40) Hemoglobin 9.1g/dL (12.0-15.5) Hematocrit 28.6% (36.0-47.0) Mean Corpuscular Volume 78fL (79-100) Mean Corpuscular Hemoglobin 25pg (25-35) Mean Corpuscular Hemoglobin Concent 32g/dL (31-37) Red Cell Distribution Width 19.6% (11.5-14.5) Platelet Count 220x10^3/uL (140-400) Neutrophils (%) (Auto) 80% (31-73) Lymphocytes (%) (Auto) 13% (24-48) Monocytes (%) (Auto) 7% (0-9) Eosinophils (%) (Auto) 0% (0-3) Basophils (%) (Auto) 0% (0-3) Neutrophils # (Auto) 3.0x10^3uL (1.8-7.7) Lymphocytes # (Auto) 0.5x10^3/uL (1.0-4.8) Monocytes # (Auto) 0.2x10^3/uL (0.0-1.1) Eosinophils # (Auto) 0.0x10^3/uL (0.0-0.7) Basophils # (Auto) 0.0x10^3/uL (0.0-0.2) Sodium Level 143mmol/L (136-145) Potassium Level 4.3mmol/L (3.5-5.1) Chloride Level 108mmol/L (98-107) Carbon Dioxide Level 24mmol/L (21-32) Anion Gap 11 (6-14) Blood Urea Nitrogen 14mg/dL (7-20) Creatinine 1.7mg/dL (0.6-1.0) Estimated GFR (Cockcroft-Gault) 32.8 Glucose Level 343mg/dL (70-99) Calcium Level 8.3mg/dL (8.5-10.1) Laboratory Tests Test 11/03/16 08:52 11/03/16 10:00 11/03/16 12:16 11/03/16 17:04 Glucose (Fingerstick) 172mg/dL (70-99) 194mg/dL (70-99) 350mg/dL (70-99) Stool Occult Blood Negative (NEG) Test 11/03/16 20:46 11/03/16 22:34 11/04/16 04:15 Glucose (Fingerstick) 397mg/dL (70-99) 382mg/dL (70-99) White Blood Count 3.7x10^3/uL (4.0-11.0) Red Blood Count 3.66x10^6/uL (3.50-5.40) Hemoglobin 9.1g/dL (12.0-15.5) Hematocrit 28.6% (36.0-47.0) Mean Corpuscular Volume 78fL (79-100) Mean Corpuscular Hemoglobin 25pg (25-35) Mean Corpuscular Hemoglobin Concent 32g/dL (31-37) Red Cell Distribution Width 19.6% (11.5-14.5) Platelet Count 220x10^3/uL (140-400) Neutrophils (%) (Auto) 80% (31-73) Lymphocytes (%) (Auto) 13% (24-48) Monocytes (%) (Auto) 7% (0-9) Eosinophils (%) (Auto) 0% (0-3) Basophils (%) (Auto) 0% (0-3) Neutrophils # (Auto) 3.0x10^3uL (1.8-7.7) Lymphocytes # (Auto) 0.5x10^3/uL (1.0-4.8) Monocytes # (Auto) 0.2x10^3/uL (0.0-1.1) Eosinophils # (Auto) 0.0x10^3/uL (0.0-0.7) Basophils # (Auto) 0.0x10^3/uL (0.0-0.2) Sodium Level 143mmol/L (136-145) Potassium Level 4.3mmol/L (3.5-5.1) Chloride Level 108mmol/L (98-107) Carbon Dioxide Level 24mmol/L (21-32) Anion Gap 11 (6-14) Blood Urea Nitrogen 14mg/dL (7-20) Creatinine 1.7mg/dL (0.6-1.0) Estimated GFR (Cockcroft-Gault) 32.8 Glucose Level 343mg/dL (70-99) Calcium Level 8.3mg/dL (8.5-10.1) Medications Active Scripts Medications Dose Route/Sig Days Date Category Aspirin Ec (Aspirin) 81 Mg Tablet.dr 81 Mg PO DAILY 10/30/16 Reported Nystatin 15 Gm Cream..g. 1 [place] TP BID 10 08/08/16 Rx Ambien (Zolpidem Tartrate) 5 Mg Tablet 5 Mg PO PRN QHS PRN 08/08/16 Rx [place] 5-325 Tablet (Acetaminophen/Hydrocodone Bitart) 1 Each Tablet 1-2 Tab PO Q4-6HRS 07/30/16 Rx Gabapentin 800 Mg Tablet 800 Mg PO TID 07/28/16 Reported Victoza 3-[place] (Liraglutide) 0.6 Mg/0.1 Ml Pen.injctr 1.8 Mg SQ DAILY 07/28/16 Reported Omeprazole 40 Mg Capsule.dr 40 Mg PO DAILY 07/28/16 Reported Cyclobenzaprine Hcl 10 Mg Tablet 10 Mg PO TID 07/28/16 Reported Iron (Ferrous Sulfate) 325 Mg Tablet 325 Mg PO DAILY 07/28/16 Reported Valium (Diazepam) 5 Mg Tablet 5 Mg PO DAILY 07/28/16 Reported Lexapro (Escitalopram Oxalate) 5 Mg Tablet 5 Mg PO DAILY 07/28/16 Reported Fexofenadine Hcl 180 Mg Tablet 180 Mg PO DAILY 07/28/16 Reported Albuterol Sulfate Conc Neb Soln (Albuterol Sulfate) 2.5 Mg/0.5 Ml Vial.neb 2.5 Mg NEB Q4HRS PRN 07/28/16 Reported Simvastatin 40 Mg Tablet 40 Mg PO HS 07/28/16 Reported Diltiazem 24HR Cd (Diltiazem Hcl) 120 Mg Cap.er.24h 120 Mg PO DAILY 07/28/16 Reported Symbicort 160-4.5 Mcg Inhaler (Budesonide/Formoterol Fumarate) 10.2 Gm Hfa.aer.ad 2 Puff IH BID 07/28/16 Reported Novolog (Insulin Aspart) 100 Unit/1 Ml Cartridge 27 Unit SQ TIDAC 10/02/14 Reported Lantus (Insulin Glargine,Hum.rec.anlog) 100 Unit/1 Ml Vial 70 Unit SQ HS 10/02/[address] reviewed, 1. Mild bibasilar atelectasis. 2. Hepatomegaly with hepatic steatosis. 3. Tiny gas bubbles related to the anterior abdominal wall at the mid pelvic level presumably on a postsurgical basis. There is adjacent streaky inflammation in the subcutaneous fat and within the pelvis, without evidence of a discrete abscess. Impression . 1. Pneumonia 2. Acute exacerbation of asthma. 3. Chronic atrial fibrillation. 4. Sepsis POA with hypotension 5. Met and toxic encephalopathy 6. snoring, eds, obesity, prob niharika Plan . 02 titration Antibx hold sedating medication DVT and GI proph so far cultures negative psg out pt discussed w pt and ERIK Portillo MD Nov 04, 2016 07:47
[2016-11-04 08:20] VITALS: BP 154/81
[2016-11-04] MEDS: DILTIAZEM HCL 120 MG CAP.ER.24H PO SCH (08:30)
[2016-11-04] MEDS: GUAIFENESIN ER 600 MG TABLET.ER PO SCH ×2 (08:30→21:45)
[2016-11-04] MEDS: ESCITALOPRAM 10 MG TABLET. PO SCH (08:30)
[2016-11-04] MEDS: PANTOPRAZOLE 40 MG TABLET. PO SCH (08:30)
[2016-11-04] MEDS: methylPREDNISolone SOD SUCC PF 125 MG/2 ML VIAL. IV SCH ×2 (08:31→21:44)
[2016-11-04] MEDS: CETIRIZINE HCL 10 MG TABLET PO SCH (08:31)
[2016-11-04] MEDS: GABAPENTIN 400 MG CAPSULE. PO SCH ×3 (08:31→21:45)
[2016-11-04] MEDS: FERROUS SULFATE 325 MG TABLET PO SCH (08:31)
[2016-11-04] MEDS: NYSTATIN 100,000 UNIT/GM TOPICAL CREAM 15GM TUBE. TP SCH ×2 (08:32→21:46)
[2016-11-04] MEDS: INSULIN ASPART 300 UNITS/3 ML INSULN.PEN SQ SCH ×3 (08:41→17:00)
--- NOTE | 2016-11-04 09:22 | PDOC ---
Infectious Disease Note Subjective Subjective feeling better. Eatign today. Less SOA. + BM ROS ROS GEN: Denies fevers, chills, sweats HEENT: Denies blurred vision, sore throat CV: Denies chest pain RESP: Denies shortness of air, cough GI: Denies n/v/d NEURO: Denies confusion, dizziness MSK: Denies joint pain/swelling Vital Sign Vital Signs Vital Signs Date Time Temp Pulse Resp B/P Pulse Ox O2 Delivery O2 Flow Rate FiO2 11/04/16 08:30 90 154/81 11/04/16 08:20 97.8 18 92 Nasal Cannula 3.0 97.8 Physical Exam PHYSICAL EXAM GENERAL: NAD, Alert, in chair HEENT: PERRL, OC/OP -clear NECK: Supple, no JVD, no LN LUNGS: Mild crackle. On 02 HEART: S1S2, no gallop, no murmur ABD: Soft, NT, no organomegaly, no rebound, obese EXT: No edema, no cyanosis [employer] MANAGER: Alert, oriented x 3, no focal neurologic deficit SKIN: No rash IV: ok Labs Lab Laboratory Tests Test 11/03/16 10:00 11/03/16 12:16 11/03/16 17:04 11/03/16 20:46 Stool Occult Blood Negative (NEG) Glucose (Fingerstick) 194mg/dL (70-99) 350mg/dL (70-99) 397mg/dL (70-99) Test 11/03/16 22:34 11/04/16 04:15 11/04/16 08:10 Glucose (Fingerstick) 382mg/dL (70-99) 328mg/dL (70-99) White Blood Count 3.7x10^3/uL (4.0-11.0) Red Blood Count 3.66x10^6/uL (3.50-5.40) Hemoglobin 9.1g/dL (12.0-15.5) Hematocrit 28.6% (36.0-47.0) Mean Corpuscular Volume 78fL (79-100) Mean Corpuscular Hemoglobin 25pg (25-35) Mean Corpuscular Hemoglobin Concent 32g/dL (31-37) Red Cell Distribution Width 19.6% (11.5-14.5) Platelet Count 220x10^3/uL (140-400) Neutrophils (%) (Auto) 80% (31-73) Lymphocytes (%) (Auto) 13% (24-48) Monocytes (%) (Auto) 7% (0-9) Eosinophils (%) (Auto) 0% (0-3) Basophils (%) (Auto) 0% (0-3) Neutrophils # (Auto) 3.0x10^3uL (1.8-7.7) Lymphocytes # (Auto) 0.5x10^3/uL (1.0-4.8) Monocytes # (Auto) 0.2x10^3/uL (0.0-1.1) Eosinophils # (Auto) 0.0x10^3/uL (0.0-0.7) Basophils # (Auto) 0.0x10^3/uL (0.0-0.2) Sodium Level 143mmol/L (136-145) Potassium Level 4.3mmol/L (3.5-5.1) Chloride Level 108mmol/L (98-107) Carbon Dioxide Level 24mmol/L (21-32) Anion Gap 11 (6-14) Blood Urea Nitrogen 14mg/dL (7-20) Creatinine 1.7mg/dL (0.6-1.0) Estimated GFR (Cockcroft-Gault) 32.8 Glucose Level 343mg/dL (70-99) Calcium Level 8.3mg/dL (8.5-10.1) Objective Assessment Fever - ? viral given leukopenia and Resp symptoms Leukopenia Hypotension Hypoxia - Asthma Change in MS ? sec to meds Recent hysterectomy Recent UTI Plan Plan of Care Cont zosyn for now F/u labs supportive care LEODAN SOTELO MD Nov 04, 2016 09:21
--- NOTE | 2016-11-04 09:55 | PDOC ---
PROGRESS NOTES Chief Complaint Chief Complaint Acute respir failure ASSESSMENT AND PLAN: 1. Bronchitis: on zosyn 2. Asthma exacerbation: cont IV steroids, nebs, suppl O2, cough meds 3. Afib: currently rate controlled. cont cardizem 4. Sepsis: hypotension resolved 5. Encephalopathy: thought to be metabolic and toxic (on benzos and opioids at home). remains very lethargic 6. BIGG: vasomotor. creat improving. cont IVF 7. Hypernatremia: improving. monitor 8. DM: poorly controlled with current steroids. increase levemir to 70 (home dose),hold mealtime S.O insulin for now, cont ISS. wean steroids when possible 9. Anemia: 2/2 dilutional + recent YESY. s/p PRBC x1. Anemia labs c/w inflammation and mild iron def. stop venofer after 3 doses. low dose PO iron repletion 10. Depression: stable mood. cont home lexapro, xanax 11. Prophylaxis: heparin, PPI History of Present Illness History of Present Illness Pt seen after transferred to ICU 10/31. Pt drowsy and unable to answer questions or hold a conversation. Rapid response was called this AM with patient being transferred to ICU. Able to ascertain that pt took several sedative medications. Possible a mix of [place], Ambien, and Flexeril. pt still cough a lot, but feels sob slightly better, hb 7 Cr 1.8 low po intake, more sob overnight diarrhea Vitals Vitals Vital Signs Date Time Temp Pulse Resp B/P Pulse Ox O2 Delivery O2 Flow Rate FiO2 11/04/16 08:30 90 154/81 11/04/16 08:20 97.8 18 92 Nasal Cannula 3.0 97.8 Physical Exam General: Cooperative, No acute distress, Other (lethargic, answeres appropriately) Heart: Regular rate Lungs: Other (coarse UA rhonchi, wheezes) Abdomen: Normal bowel sounds, Soft, No tenderness Extremities: No edema Skin: No rashes Labs LABS Laboratory Tests Test 11/03/16 10:00 11/03/16 12:16 11/03/16 17:04 11/03/16 20:46 Stool Occult Blood Negative (NEG) Glucose (Fingerstick) 194mg/dL (70-99) 350mg/dL (70-99) 397mg/dL (70-99) Test 11/03/16 22:34 11/04/16 04:15 11/04/16 08:10 Glucose (Fingerstick) 382mg/dL (70-99) 328mg/dL (70-99) White Blood Count 3.7x10^3/uL (4.0-11.0) Red Blood Count 3.66x10^6/uL (3.50-5.40) Hemoglobin 9.1g/dL (12.0-15.5) Hematocrit 28.6% (36.0-47.0) Mean Corpuscular Volume 78fL (79-100) Mean Corpuscular Hemoglobin 25pg (25-35) Mean Corpuscular Hemoglobin Concent 32g/dL (31-37) Red Cell Distribution Width 19.6% (11.5-14.5) Platelet Count 220x10^3/uL (140-400) Neutrophils (%) (Auto) 80% (31-73) Lymphocytes (%) (Auto) 13% (24-48) Monocytes (%) (Auto) 7% (0-9) Eosinophils (%) (Auto) 0% (0-3) Basophils (%) (Auto) 0% (0-3) Neutrophils # (Auto) 3.0x10^3uL (1.8-7.7) Lymphocytes # (Auto) 0.5x10^3/uL (1.0-4.8) Monocytes # (Auto) 0.2x10^3/uL (0.0-1.1) Eosinophils # (Auto) 0.0x10^3/uL (0.0-0.7) Basophils # (Auto) 0.0x10^3/uL (0.0-0.2) Sodium Level 143mmol/L (136-145) Potassium Level 4.3mmol/L (3.5-5.1) Chloride Level 108mmol/L (98-107) Carbon Dioxide Level 24mmol/L (21-32) Anion Gap 11 (6-14) Blood Urea Nitrogen 14mg/dL (7-20) Creatinine 1.7mg/dL (0.6-1.0) Estimated GFR (Cockcroft-Gault) 32.8 Glucose Level 343mg/dL (70-99) Calcium Level 8.3mg/dL (8.5-10.1) Review of Systems Review of Systems gen malaise, still SOB at rest. mostly dry cough CRISTY POSEY MD Nov 04, 2016 09:54
[2016-11-04] MEDS: IRON SUCROSE COMPLEX 400 MG in IV NORMAL SALINE 250ML 250 ML IV SCH (11:04)
[2016-11-04 12:00] VITALS: BP 172/101
[2016-11-04] MEDS: HEPARIN PF for SUB-Q USE 5,000 UNIT/0.5 ML VIAL. SQ SCH ×2 (14:16→21:50)
--- NOTE | 2016-11-04 14:31 | PDOC ---
SUBJECTIVE ROS BIGG doign and feeling better today OBJECTIVE Vital Signs Vital Signs Date Time Temp Pulse Resp B/P Pulse Ox O2 Delivery O2 Flow Rate FiO2 11/04/16 12:00 98.1 90 18 172/101 96 Nasal Cannula 3.0 98.1 I & 0 Intake and Output 11/04/16 07:00 Intake Total 4544 ml Output Total 2000 ml Balance 2544 ml Intake Oral 1200 ml IV Total 3344 ml Output Urine Total 2000 ml # Bowel Movements 3 PHYSICAL EXAM Physical Exam General Appearance: no apparent distress Skin: warm Respiratory: bilateral CTA Heart: S1S2 Abdomen: soft, bowel sounds present Genitourinary: bladder not palpable Neurology: alert, oriented, follow commands Assessment Assessment IMP BIGG-ATN - IMPROVING CR STILL 1.7 PLAN CONT IVF'S COMMENT/RELEVANT DATA Meds Current Medications Medications (Trade) Dose Ordered Sig/Mo Start Time Stop Time Status Last Admin Dose Admin Acetaminophen/ Hydrocodone Bitart 1 tab 1 tab PRN Q4HRS PRN 10/30/16 10:15 10/30/16 11:31 DC 10/30/16 10:30 1 TAB Acetaminophen/ Hydrocodone Bitart (Lortab 5/325) 2 tab PRN QID PRN 10/30/16 11:45 11/01/16 09:31 1 TAB Albuterol Sulfate (Ventolin Neb Soln) 2.5 mg PRN Q4HRS PRN 10/30/16 11:45 11/04/16 11:13 2.5 MG Albuterol/ Ipratropium (Duoneb) 3 ml RTQID 10/30/16 08:00 10/31/16 07:59 DC 10/31/16 07:06 3 ML Albuterol/ Ipratropium 3 ml 3 ml 1X ONCE 10/30/16 00:15 10/30/16 00:57 DC 10/30/16 00:31 3 ML Alprazolam (Xanax) 0.25 mg PRN Q8HRS PRN 11/01/16 10:30 11/03/16 20:44 0.25 MG Aspirin (Ecotrin) 81 mg DAILYWBKFT 10/30/16 12:30 10/31/16 10:40 DC Budesonide (Pulmicort) 0.5 mg RTBID 10/30/16 20:00 11/04/16 07:21 0.5 MG Cetirizine HCl (Zyrtec) 10 mg DAILY 10/30/16 12:30 11/04/16 08:31 10 MG Ciprofloxacin Lactate (Cipro 400mg Premix) 200 ml @ 200 mls/hr Q12HR 10/30/16 21:00 11/02/16 07:27 DC 11/01/16 21:38 200 MLS/HR Cyclobenzaprine HCl (Flexeril) 10 mg TID 10/30/16 14:00 11/01/16 10:21 DC 10/30/16 21:33 10 MG Dextrose 12.5 gm PRN Q15MIN PRN 11/03/16 20:45 Diazepam (Valium) 5 mg DAILY 10/30/16 12:30 11/01/16 10:21 DC 11/01/16 09:00 5 MG Diltiazem HCl (Cardizem 24hr Cd) 120 mg DAILY 10/30/16 12:30 11/04/16 08:30 120 MG Escitalopram Oxalate (Lexapro) 5 mg DAILY 11/04/16 09:00 11/04/16 08:30 5 MG Famotidine (Pepcid) 20 mg BID 10/30/16 02:00 11/01/16 09:19 DC 10/30/16 21:33 20 MG Ferrous Sulfate (Feosol) 325 mg DAILY 10/30/16 12:30 11/04/16 08:31 325 MG Ferrous Sulfate 325 mg 325 mg QHS 11/04/16 21:00 11/04/16 21:00 DC Gabapentin (Neurontin) 800 mg TID 10/30/16 14:00 11/04/16 14:12 800 MG Guaifenesin (Mucinex) 600 mg BID 11/01/16 14:00 11/04/16 08:30 600 MG Guaifenesin (Robitussin) 200 mg PRN Q4HRS PRN 11/01/16 13:15 Heparin Sodium (Porcine) 5,000 unit Q8HRS 11/04/16 14:00 11/04/16 14:16 5,000 UNIT Info (Do NOT chart on this entry -- for MONITORING) 1 each PRN DAILY PRN 10/31/16 09:15 11/02/16 09:14 DC Insulin Aspart (Novolog) 10 units 1X ONCE 11/03/16 23:45 11/03/16 23:46 DC 11/03/16 23:35 10 UNITS Insulin Detemir (Levemir) 70 units QHS 11/04/16 21:00 Insulin Detemir 40 units 40 units QHS 11/02/16 21:00 11/04/16 06:31 DC 11/03/16 20:50 40 UNITS Insulin Human Regular 10 unit 10 unit 1X ONCE 10/30/16 01:00 10/30/16 01:01 DC 10/30/16 02:33 10 UNIT Iohexol (Omnipaque 240 Mg/ml) 30 ml 1X ONCE 10/31/16 09:00 10/31/16 09:03 DC 10/31/16 09:00 30 ML Iron Sucrose/ Sodium Chloride (Venofer/Iv Sodium Chloride 0.9% 250ml) 270 ml @ 90 mls/hr DAILY 11/05/16 09:00 11/04/16 14:59 UNV Lisinopril (Prinivil) 10 mg DAILY 10/30/16 17:00 10/31/16 10:37 DC 10/30/16 17:13 10 MG Methylprednisolone Sodium Succinate (Solu-Medrol 125mg Vial) 60 mg Q12HR 11/03/16 10:00 11/04/16 08:31 60 MG Non-Formulary Medication 1.8 mg DAILY 10/31/16 09:00 11/01/16 07:09 DC Nystatin (Mycostatin) 1 fernandez BID 10/30/16 12:30 11/04/16 08:32 1 FERNANDEZ Ondansetron HCl (Zofran) 4 mg STK-MED ONCE 11/01/16 09:25 11/02/16 08:23 DC Pantoprazole Sodium (Protonix) 40 mg DAILYAC 10/30/16 12:30 11/04/16 08:30 40 MG Piperacillin Sod/ Tazobactam Sod (Zosyn Per Pharmacy) 1 each PRN DAILY PRN 11/01/16 13:15 11/01/16 13:16 DC Piperacillin Sod/ Tazobactam Sod 1 each 1 each PRN DAILY PRN 10/30/16 00:30 11/01/16 13:16 DC Piperacillin Sod/ Tazobactam Sod/ Sodium Chloride (Zosyn/Iv Sodium Chloride 0.9% 50ml) 50 ml @ 100 mls/hr 1X ONCE 10/30/16 01:00 10/30/16 01:29 DC 10/30/16 02:38 100 MLS/HR Piperacillin Sod/ Tazobactam Sod/ Sodium Chloride (Zosyn/Iv Sodium Chloride 0.9% 100ml) 100 ml @ 200 mls/hr Q6HRS 10/30/16 08:00 11/04/16 12:00 200 MLS/HR Promethazine HCl/ Codeine (Phenergan With Codeine) 5 ml PRN Q4HRS PRN 10/30/16 10:15 10/30/16 21:44 5 ML Simvastatin (Zocor) 40 mg HS 10/30/16 21:00 11/03/16 20:44 40 MG Sodium Chloride (Iv Sodium Chloride 0.45%) 1,000 ml @ 150 mls/hr Q6H40M 11/02/16 14:45 11/04/16 09:59 150 MLS/HR Sodium Chloride (Iv Sodium Chloride 0.9% 500ml Bag) 500 ml @ 500 mls/hr 1X ONCE 10/31/16 08:30 10/31/16 09:29 DC 10/31/16 08:00 500 MLS/HR Sodium Chloride (Normal Saline Flush) 10 ml QSHIFT PRN 10/29/16 23:30 Throat Lozenges 1 abena 1 abena PRN Q2HRS PRN 10/30/16 18:15 Vancomycin HCl 1 each 1X ONCE 10/31/16 16:30 10/31/16 16:31 DC 10/31/16 16:30 1 EACH Vancomycin HCl (Vanco Per Pharmacy) 1 each PRN DAILY PRN 10/30/16 00:30 11/02/16 07:27 DC 11/01/16 14:32 1 EACH Vancomycin HCl 2 gm/Sodium Chloride 500 ml @ 250 mls/hr 1X ONCE 10/30/16 05:00 10/30/16 06:59 DC 10/30/16 04:56 250 MLS/HR Vancomycin HCl/ Sodium Chloride (Iv Sodium Chloride 0.9% 500ml Bag) 500 ml @ 250 mls/hr Q12H 10/30/16 17:00 11/02/16 07:27 DC 11/02/16 04:42 250 MLS/HR Zolpidem Tartrate (Ambien) 5 mg PRN QHS PRN 10/30/16 11:30 11/04/16 12:44 DC 11/03/16 20:44 5 MG Lab Laboratory Tests Test 11/03/16 17:04 11/03/16 20:46 11/03/16 22:34 11/04/16 04:15 Glucose (Fingerstick) 350mg/dL (70-99) 397mg/dL (70-99) 382mg/dL (70-99) White Blood Count 3.7x10^3/uL (4.0-11.0) Red Blood Count 3.66x10^6/uL (3.50-5.40) Hemoglobin 9.1g/dL (12.0-15.5) Hematocrit 28.6% (36.0-47.0) Mean Corpuscular Volume 78fL (79-100) Mean Corpuscular Hemoglobin 25pg (25-35) Mean Corpuscular Hemoglobin Concent 32g/dL (31-37) Red Cell Distribution Width 19.6% (11.5-14.5) Platelet Count 220x10^3/uL (140-400) Neutrophils (%) (Auto) 80% (31-73) Lymphocytes (%) (Auto) 13% (24-48) Monocytes (%) (Auto) 7% (0-9) Eosinophils (%) (Auto) 0% (0-3) Basophils (%) (Auto) 0% (0-3) Neutrophils # (Auto) 3.0x10^3uL (1.8-7.7) Lymphocytes # (Auto) 0.5x10^3/uL (1.0-4.8) Monocytes # (Auto) 0.2x10^3/uL (0.0-1.1) Eosinophils # (Auto) 0.0x10^3/uL (0.0-0.7) Basophils # (Auto) 0.0x10^3/uL (0.0-0.2) Sodium Level 143mmol/L (136-145) Potassium Level 4.3mmol/L (3.5-5.1) Chloride Level 108mmol/L (98-107) Carbon Dioxide Level 24mmol/L (21-32) Anion Gap 11 (6-14) Blood Urea Nitrogen 14mg/dL (7-20) Creatinine 1.7mg/dL (0.6-1.0) Estimated GFR (Cockcroft-Gault) 32.8 Glucose Level 343mg/dL (70-99) Calcium Level 8.3mg/dL (8.5-10.1) Test 11/04/16 08:10 11/04/16 11:43 Glucose (Fingerstick) 328mg/dL (70-99) 326mg/dL (70-99) ORALIA CHAVES MD Nov 04, 2016 14:31
[2016-11-04] MEDS: IPRATRPIUM/ALBUTEROL 0.5/2.5MG 3 ML NEBU. NEB SCH ×2 (15:18→20:44)
[2016-11-04 15:47] VITALS: BP 162/86
[2016-11-04] MEDS ORDERED: INSULIN ASPART 300 UNITS/3 ML INSULN.PEN SQ ONE (17:30)
[2016-11-04 19:45] VITALS: BP 165/95
[2016-11-04] MEDS ORDERED: INSULIN DETEMIR 300 UNITS/3 ML INSULN.PEN. SQ SCH ×2 (21:00)
[2016-11-04] MEDS ORDERED: FERROUS SULFATE 325 MG TABLET PO SCH (21:00)
[2016-11-04] MEDS: SIMVASTATIN 40 MG TABLET. PO SCH (21:45)
[2016-11-04] MEDS: HYDROCODONE/APAP 5/325MG TABLET. PO PRN (21:53)
[2016-11-04] MEDS: PROMETH/CODEINE 6.25/10MG 5 ML SYRUP. PO PRN (21:53)
[2016-11-04] MEDS: LABETALOL 20 MG/4 ML DISP.SYRIN. IVP PRN (22:47)
[2016-11-04 22:52] VITALS: BP 173/101
[2016-11-05] VITALS (8 sets, daily range): BP systolic 162–186; BP diastolic 91–97
[2016-11-05] MEDS: IV 1/2 NORMAL SALINE 1,000 ML IV SCH ×2 (04:29→11:25)
[2016-11-05 04:41] LABS: BASO % 0 % (0-3); EOS % 0 % (0-3); HEMATOCRIT 29.2 % (36.0-47.0); LYMPH # 0.5 x10^3/uL (1.0-4.8); LYMPH % 5 % (24-48); MEAN CORPUSCULAR HEMOGLOBIN 24 pg (25-35); MEAN CORPUSCULAR HGB CONC 31 g/dL (31-37); MEAN CORPUSCULAR VOLUME 79 fL (79-100); MONO % 3 % (0-9); NEUT % 92 % (31-73); PLATELET COUNT 284 x10^3/uL (140-400); RED BLOOD COUNT 3.71 x10^6/uL (3.50-5.40); RED CELL DISTRIBUTION WIDTH 19.7 % (11.5-14.5); WHITE BLOOD COUNT 9.9 x10^3/uL (4.0-11.0)
[2016-11-05 04:57] LABS: CALCIUM 8.4 mg/dL (8.5-10.1); CREATININE 1.7 mg/dL (0.6-1.0); GFR 32.8; POTASSIUM 4.2 mmol/L (3.5-5.1)
[2016-11-05] MEDS: PIPERACILLIN/TAZOBACTAM 4.5 GM in IV NORMAL SALINE 100ML 100 ML IV SCH ×2 (05:43→11:26)
[2016-11-05] MEDS: HEPARIN PF for SUB-Q USE 5,000 UNIT/0.5 ML VIAL. SQ SCH ×3 (05:46→23:25)
[2016-11-05 05:59] LABS: HYPOCHROMIA SLIGHT; PLT ESTIMATE ADEQUATE (ADEQUATE)
[2016-11-05 06:00] LABS: ANISOCYTOSIS SLIGHT
[2016-11-05] MEDS: IPRATRPIUM/ALBUTEROL 0.5/2.5MG 3 ML NEBU. NEB SCH ×4 (07:07→19:49)
[2016-11-05] MEDS: BUDESONIDE 0.5 MG/2 ML NEBU NEB SCH ×2 (07:07→19:49)
--- NOTE | 2016-11-05 08:10 | PDOC ---
PULMONARY PROGRESS NOTES Subjective has sob, cough, better, no cp, no runny nose. has eds, snoring Vitals Vital Signs Date Time Temp Pulse Resp B/P Pulse Ox O2 Delivery O2 Flow Rate FiO2 11/05/16 07:08 90 Nasal Cannula 3.0 11/05/16 03:15 98.0 85 22 162/96 98.0 Comments ros as mentioned as above other sys otherwise neg ROS: No Nausea General: Alert HEENT: Other (nc ar peerl, throat nose clear) Lungs: Crackles Cardiovascular: S1, S2 Abdomen: Soft, Non-tender Neuro Exam: Alert Extremities: Other Skin: Warm, Dry Labs Laboratory Tests Test 11/03/16 08:52 11/03/16 10:00 11/03/16 12:16 11/03/16 17:04 Glucose (Fingerstick) 172mg/dL (70-99) 194mg/dL (70-99) 350mg/dL (70-99) Stool Occult Blood Negative (NEG) Test 11/03/16 20:46 11/03/16 22:34 11/04/16 04:15 11/04/16 08:10 Glucose (Fingerstick) 397mg/dL (70-99) 382mg/dL (70-99) 328mg/dL (70-99) White Blood Count 3.7x10^3/uL (4.0-11.0) Red Blood Count 3.66x10^6/uL (3.50-5.40) Hemoglobin 9.1g/dL (12.0-15.5) Hematocrit 28.6% (36.0-47.0) Mean Corpuscular Volume 78fL (79-100) Mean Corpuscular Hemoglobin 25pg (25-35) Mean Corpuscular Hemoglobin Concent 32g/dL (31-37) Red Cell Distribution Width 19.6% (11.5-14.5) Platelet Count 220x10^3/uL (140-400) Neutrophils (%) (Auto) 80% (31-73) Lymphocytes (%) (Auto) 13% (24-48) Monocytes (%) (Auto) 7% (0-9) Eosinophils (%) (Auto) 0% (0-3) Basophils (%) (Auto) 0% (0-3) Neutrophils # (Auto) 3.0x10^3uL (1.8-7.7) Lymphocytes # (Auto) 0.5x10^3/uL (1.0-4.8) Monocytes # (Auto) 0.2x10^3/uL (0.0-1.1) Eosinophils # (Auto) 0.0x10^3/uL (0.0-0.7) Basophils # (Auto) 0.0x10^3/uL (0.0-0.2) Sodium Level 143mmol/L (136-145) Potassium Level 4.3mmol/L (3.5-5.1) Chloride Level 108mmol/L (98-107) Carbon Dioxide Level 24mmol/L (21-32) Anion Gap 11 (6-14) Blood Urea Nitrogen 14mg/dL (7-20) Creatinine 1.7mg/dL (0.6-1.0) Estimated GFR (Cockcroft-Gault) 32.8 Glucose Level 343mg/dL (70-99) Calcium Level 8.3mg/dL (8.5-10.1) Test 11/04/16 11:43 11/04/16 16:27 11/04/16 20:32 11/05/16 04:00 Glucose (Fingerstick) 326mg/dL (70-99) 435mg/dL (70-99) 483mg/dL (70-99) White Blood Count 9.9x10^3/uL (4.0-11.0) Red Blood Count 3.71x10^6/uL (3.50-5.40) Hemoglobin 9.0g/dL (12.0-15.5) Hematocrit 29.2% (36.0-47.0) Mean Corpuscular Volume 79fL (79-100) Mean Corpuscular Hemoglobin 24pg (25-35) Mean Corpuscular Hemoglobin Concent 31g/dL (31-37) Red Cell Distribution Width 19.7% (11.5-14.5) Platelet Count 284x10^3/uL (140-400) Neutrophils (%) (Auto) 92% (31-73) Lymphocytes (%) (Auto) 5% (24-48) Monocytes (%) (Auto) 3% (0-9) Eosinophils (%) (Auto) 0% (0-3) Basophils (%) (Auto) 0% (0-3) Neutrophils # (Auto) 9.1x10^3uL (1.8-7.7) Lymphocytes # (Auto) 0.5x10^3/uL (1.0-4.8) Monocytes # (Auto) 0.3x10^3/uL (0.0-1.1) Eosinophils # (Auto) 0.0x10^3/uL (0.0-0.7) Basophils # (Auto) 0.0x10^3/uL (0.0-0.2) Segmented Neutrophils % 78% (35-66) Band Neutrophils % 10% (0-9) Lymphocytes % 10% (24-48) Monocytes % 2% (0-10) Platelet Estimate Adequate (ADEQUATE) Hypochromasia Slight Anisocytosis Slight Sodium Level 144mmol/L (136-145) Potassium Level 4.2mmol/L (3.5-5.1) Chloride Level 108mmol/L (98-107) Carbon Dioxide Level 23mmol/L (21-32) Anion Gap 13 (6-14) Blood Urea Nitrogen 21mg/dL (7-20) Creatinine 1.7mg/dL (0.6-1.0) Estimated GFR (Cockcroft-Gault) 32.8 Glucose Level 422mg/dL (70-99) Calcium Level 8.4mg/dL (8.5-10.1) Test 11/05/16 07:46 Glucose (Fingerstick) 388mg/dL (70-99) Laboratory Tests Test 11/04/16 08:10 11/04/16 11:43 11/04/16 16:27 11/04/16 20:32 Glucose (Fingerstick) 328mg/dL (70-99) 326mg/dL (70-99) 435mg/dL (70-99) 483mg/dL (70-99) Test 11/05/16 04:00 11/05/16 07:46 White Blood Count 9.9x10^3/uL (4.0-11.0) Red Blood Count 3.71x10^6/uL (3.50-5.40) Hemoglobin 9.0g/dL (12.0-15.5) Hematocrit 29.2% (36.0-47.0) Mean Corpuscular Volume 79fL (79-100) Mean Corpuscular Hemoglobin 24pg (25-35) Mean Corpuscular Hemoglobin Concent 31g/dL (31-37) Red Cell Distribution Width 19.7% (11.5-14.5) Platelet Count 284x10^3/uL (140-400) Neutrophils (%) (Auto) 92% (31-73) Lymphocytes (%) (Auto) 5% (24-48) Monocytes (%) (Auto) 3% (0-9) Eosinophils (%) (Auto) 0% (0-3) Basophils (%) (Auto) 0% (0-3) Neutrophils # (Auto) 9.1x10^3uL (1.8-7.7) Lymphocytes # (Auto) 0.5x10^3/uL (1.0-4.8) Monocytes # (Auto) 0.3x10^3/uL (0.0-1.1) Eosinophils # (Auto) 0.0x10^3/uL (0.0-0.7) Basophils # (Auto) 0.0x10^3/uL (0.0-0.2) Segmented Neutrophils % 78% (35-66) Band Neutrophils % 10% (0-9) Lymphocytes % 10% (24-48) Monocytes % 2% (0-10) Platelet Estimate Adequate (ADEQUATE) Hypochromasia Slight Anisocytosis Slight Sodium Level 144mmol/L (136-145) Potassium Level 4.2mmol/L (3.5-5.1) Chloride Level 108mmol/L (98-107) Carbon Dioxide Level 23mmol/L (21-32) Anion Gap 13 (6-14) Blood Urea Nitrogen 21mg/dL (7-20) Creatinine 1.7mg/dL (0.6-1.0) Estimated GFR (Cockcroft-Gault) 32.8 Glucose Level 422mg/dL (70-99) Calcium Level 8.4mg/dL (8.5-10.1) Glucose (Fingerstick) 388mg/dL (70-99) Medications Active Scripts Medications Dose Route/Sig Days Date Category Aspirin Ec (Aspirin) 81 Mg Tablet.dr 81 Mg PO DAILY 10/30/16 Reported Nystatin 15 Gm Cream..g. 1 [place] TP BID 10 08/08/16 Rx Ambien (Zolpidem Tartrate) 5 Mg Tablet 5 Mg PO PRN QHS PRN 08/08/16 Rx [place] 5-325 Tablet (Acetaminophen/Hydrocodone Bitart) 1 Each Tablet 1-2 Tab PO Q4-6HRS 07/30/16 Rx Gabapentin 800 Mg Tablet 800 Mg PO TID 07/28/16 Reported Victoza 3-[place] (Liraglutide) 0.6 Mg/0.1 Ml Pen.injctr 1.8 Mg SQ DAILY 07/28/16 Reported Omeprazole 40 Mg Capsule.dr 40 Mg PO DAILY 07/28/16 Reported Cyclobenzaprine Hcl 10 Mg Tablet 10 Mg PO TID 07/28/16 Reported Iron (Ferrous Sulfate) 325 Mg Tablet 325 Mg PO DAILY 07/28/16 Reported Valium (Diazepam) 5 Mg Tablet 5 Mg PO DAILY 07/28/16 Reported Lexapro (Escitalopram Oxalate) 5 Mg Tablet 5 Mg PO DAILY 07/28/16 Reported Fexofenadine Hcl 180 Mg Tablet 180 Mg PO DAILY 07/28/16 Reported Albuterol Sulfate Conc Neb Soln (Albuterol Sulfate) 2.5 Mg/0.5 Ml Vial.neb 2.5 Mg NEB Q4HRS PRN 07/28/16 Reported Simvastatin 40 Mg Tablet 40 Mg PO HS 07/28/16 Reported Diltiazem 24HR Cd (Diltiazem Hcl) 120 Mg Cap.er.24h 120 Mg PO DAILY 07/28/16 Reported Symbicort 160-4.5 Mcg Inhaler (Budesonide/Formoterol Fumarate) 10.2 Gm Hfa.aer.ad 2 Puff IH BID 07/28/16 Reported Novolog (Insulin Aspart) 100 Unit/1 Ml Cartridge 27 Unit SQ TIDAC 10/02/14 Reported Lantus (Insulin Glargine,Hum.rec.anlog) 100 Unit/1 Ml Vial 70 Unit SQ HS 10/02/[address] reviewed, 1. Mild bibasilar atelectasis. 2. Hepatomegaly with hepatic steatosis. 3. Tiny gas bubbles related to the anterior abdominal wall at the mid pelvic level presumably on a postsurgical basis. There is adjacent streaky inflammation in the subcutaneous fat and within the pelvis, without evidence of a discrete abscess. Impression . 1. Pneumonia 2. Acute exacerbation of asthma. 3. Chronic atrial fibrillation. 4. Sepsis POA with hypotension 5. Met and toxic encephalopathy, resolved 6. snoring, eds, obesity, prob niharika Plan . 02 titration Antibx avoid oversedation DVT and GI proph so far cultures negative change solumedrol to prednisone gi and dvt prophylaxis psg out pt discussed w pt and rn ERIK HU MD Nov 05, 2016 08:10
[2016-11-05] MEDS: ESCITALOPRAM 10 MG TABLET. PO SCH (08:34)
[2016-11-05] MEDS: GABAPENTIN 400 MG CAPSULE. PO SCH ×3 (08:35→23:18)
[2016-11-05] MEDS: PANTOPRAZOLE 40 MG TABLET. PO SCH (08:35)
[2016-11-05] MEDS: FERROUS SULFATE 325 MG TABLET PO SCH (08:35)
[2016-11-05] MEDS: DILTIAZEM HCL 120 MG CAP.ER.24H PO SCH (08:36)
[2016-11-05] MEDS: CETIRIZINE HCL 10 MG TABLET PO SCH (08:36)
[2016-11-05] MEDS: NYSTATIN 100,000 UNIT/GM TOPICAL CREAM 15GM TUBE. TP SCH ×2 (08:36→21:00)
[2016-11-05] MEDS: GUAIFENESIN ER 600 MG TABLET.ER PO SCH ×2 (08:36→23:17)
[2016-11-05] MEDS: INSULIN ASPART 300 UNITS/3 ML INSULN.PEN SQ SCH ×5 (08:42→17:31)
[2016-11-05] MEDS: LABETALOL 20 MG/4 ML DISP.SYRIN. IVP PRN ×2 (08:53→16:04)
[2016-11-05] MEDS: PREDNISONE 20 MG TABLET PO SCH (09:00)
[2016-11-05] MEDS ORDERED: IRON SUCROSE COMPLEX 400 MG in IV NORMAL SALINE 250ML 250 ML IV SCH (09:00)
[2016-11-05] MEDS: ALBUTEROL SULFATE 2.5 MG/3 ML NEBU. NEB PRN (09:30)
[2016-11-05] MEDS ORDERED: INSULIN ASPART 300 UNITS/3 ML INSULN.PEN SQ SCH (11:30)
--- NOTE | 2016-11-05 12:12 | PDOC ---
PROGRESS NOTES Chief Complaint Chief Complaint Acute respir failure ASSESSMENT AND PLAN: 1. Bronchitis: on zosyn 2. Asthma exacerbation: shifted to PO pred sunday 3. Afib: currently rate controlled. cont cardizem 4. Sepsis: hypotension resolved 5. Encephalopathy: thought to be metabolic and toxic (on benzos and opioids at home). remains very lethargic 6. BIGG: vasomotor. creat improving. on 150cc/hr IVF 7. Hypernatremia: improving. 8. DM: poorly controlled with current steroids. 9. Anemia: 2/2 dilutional + recent YESY. s/p PRBC x1. 10. Depression: stable mood. cont home lexapro, xanax 11. Prophylaxis: heparin, PPI History of Present Illness History of Present Illness CRackles today IVF running at 150cc./hr Creatinine improving 1.7 from 2 Productive sounding cough LAst CXR 2 days ago and CTA reviewed, poor effort, atelectasis, cardiomegaly ( portable shot) More awake today per records Clinically looks has ABI, but insurance wont cover for polysomnogram so she has not done it BS high - novolog mealtime not restarted (on high doses insulin at home) BP high PLAn: Resume 27 novolog TID (bs 400s-500s) Solumedrol shifted to PO by pulmo today Add pT/OT - encourage ambulation Chest physiotherapy by RT IS by RT Dec IVF to 75cc/hr - dw renal Cont cough med Avoid narcs Needs outpt sleep study prn hydralazine - to avoid Bb bec of bronchospasm 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, 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, pt and mother Vitals Vitals Vital Signs Date Time Temp Pulse Resp B/P Pulse Ox O2 Delivery O2 Flow Rate FiO2 11/05/16 11:31 91 Nasal Cannula 3.0 11/05/16 10:35 97.7 89 20 180/95 97.7 Physical Exam General: Cooperative, No acute distress, Other (lethargic, answeres appropriately) Heart: Regular rate Lungs: Crackles Abdomen: Normal bowel sounds, Soft, No tenderness Extremities: No edema Skin: No rashes Labs LABS Laboratory Tests Test 11/04/16 16:27 11/04/16 20:32 11/05/16 04:00 11/05/16 07:46 Glucose (Fingerstick) 435mg/dL (70-99) 483mg/dL (70-99) 388mg/dL (70-99) White Blood Count 9.9x10^3/uL (4.0-11.0) Red Blood Count 3.71x10^6/uL (3.50-5.40) Hemoglobin 9.0g/dL (12.0-15.5) Hematocrit 29.2% (36.0-47.0) Mean Corpuscular Volume 79fL (79-100) Mean Corpuscular Hemoglobin 24pg (25-35) Mean Corpuscular Hemoglobin Concent 31g/dL (31-37) Red Cell Distribution Width 19.7% (11.5-14.5) Platelet Count 284x10^3/uL (140-400) Neutrophils (%) (Auto) 92% (31-73) Lymphocytes (%) (Auto) 5% (24-48) Monocytes (%) (Auto) 3% (0-9) Eosinophils (%) (Auto) 0% (0-3) Basophils (%) (Auto) 0% (0-3) Neutrophils # (Auto) 9.1x10^3uL (1.8-7.7) Lymphocytes # (Auto) 0.5x10^3/uL (1.0-4.8) Monocytes # (Auto) 0.3x10^3/uL (0.0-1.1) Eosinophils # (Auto) 0.0x10^3/uL (0.0-0.7) Basophils # (Auto) 0.0x10^3/uL (0.0-0.2) Segmented Neutrophils % 78% (35-66) Band Neutrophils % 10% (0-9) Lymphocytes % 10% (24-48) Monocytes % 2% (0-10) Platelet Estimate Adequate (ADEQUATE) Hypochromasia Slight Anisocytosis Slight Sodium Level 144mmol/L (136-145) Potassium Level 4.2mmol/L (3.5-5.1) Chloride Level 108mmol/L (98-107) Carbon Dioxide Level 23mmol/L (21-32) Anion Gap 13 (6-14) Blood Urea Nitrogen 21mg/dL (7-20) Creatinine 1.7mg/dL (0.6-1.0) Estimated GFR (Cockcroft-Gault) 32.8 Glucose Level 422mg/dL (70-99) Calcium Level 8.4mg/dL (8.5-10.1) Test 11/05/16 11:20 Glucose (Fingerstick) 417mg/dL (70-99) Review of Systems Review of Systems cough, weak, sleepy Assessment and Plan Assessmemt and Plan Problems Medical Problems: (1) Healthcare-associated pneumonia Status: Acute (2) Hyperglycemia Status: Acute Problems: Comment Review of Relevant I have reviewed the following items emery (where applicable) has been applied. Labs Laboratory Tests Test 11/03/16 12:16 11/03/16 17:04 11/03/16 20:46 11/03/16 22:34 Glucose (Fingerstick) 194mg/dL (70-99) 350mg/dL (70-99) 397mg/dL (70-99) 382mg/dL (70-99) Test 11/04/16 04:15 11/04/16 08:10 11/04/16 11:43 11/04/16 16:27 White Blood Count 3.7x10^3/uL (4.0-11.0) Red Blood Count 3.66x10^6/uL (3.50-5.40) Hemoglobin 9.1g/dL (12.0-15.5) Hematocrit 28.6% (36.0-47.0) Mean Corpuscular Volume 78fL (79-100) Mean Corpuscular Hemoglobin 25pg (25-35) Mean Corpuscular Hemoglobin Concent 32g/dL (31-37) Red Cell Distribution Width 19.6% (11.5-14.5) Platelet Count 220x10^3/uL (140-400) Neutrophils (%) (Auto) 80% (31-73) Lymphocytes (%) (Auto) 13% (24-48) Monocytes (%) (Auto) 7% (0-9) Eosinophils (%) (Auto) 0% (0-3) Basophils (%) (Auto) 0% (0-3) Neutrophils # (Auto) 3.0x10^3uL (1.8-7.7) Lymphocytes # (Auto) 0.5x10^3/uL (1.0-4.8) Monocytes # (Auto) 0.2x10^3/uL (0.0-1.1) Eosinophils # (Auto) 0.0x10^3/uL (0.0-0.7) Basophils # (Auto) 0.0x10^3/uL (0.0-0.2) Sodium Level 143mmol/L (136-145) Potassium Level 4.3mmol/L (3.5-5.1) Chloride Level 108mmol/L (98-107) Carbon Dioxide Level 24mmol/L (21-32) Anion Gap 11 (6-14) Blood Urea Nitrogen 14mg/dL (7-20) Creatinine 1.7mg/dL (0.6-1.0) Estimated GFR (Cockcroft-Gault) 32.8 Glucose Level 343mg/dL (70-99) Calcium Level 8.3mg/dL (8.5-10.1) Glucose (Fingerstick) 328mg/dL (70-99) 326mg/dL (70-99) 435mg/dL (70-99) Test 11/04/16 20:32 11/05/16 04:00 11/05/16 07:46 11/05/16 11:20 Glucose (Fingerstick) 483mg/dL (70-99) 388mg/dL (70-99) 417mg/dL (70-99) White Blood Count 9.9x10^3/uL (4.0-11.0) Red Blood Count 3.71x10^6/uL (3.50-5.40) Hemoglobin 9.0g/dL (12.0-15.5) Hematocrit 29.2% (36.0-47.0) Mean Corpuscular Volume 79fL (79-100) Mean Corpuscular Hemoglobin 24pg (25-35) Mean Corpuscular Hemoglobin Concent 31g/dL (31-37) Red Cell Distribution Width 19.7% (11.5-14.5) Platelet Count 284x10^3/uL (140-400) Neutrophils (%) (Auto) 92% (31-73) Lymphocytes (%) (Auto) 5% (24-48) Monocytes (%) (Auto) 3% (0-9) Eosinophils (%) (Auto) 0% (0-3) Basophils (%) (Auto) 0% (0-3) Neutrophils # (Auto) 9.1x10^3uL (1.8-7.7) Lymphocytes # (Auto) 0.5x10^3/uL (1.0-4.8) Monocytes # (Auto) 0.3x10^3/uL (0.0-1.1) Eosinophils # (Auto) 0.0x10^3/uL (0.0-0.7) Basophils # (Auto) 0.0x10^3/uL (0.0-0.2) Segmented Neutrophils % 78% (35-66) Band Neutrophils % 10% (0-9) Lymphocytes % 10% (24-48) Monocytes % 2% (0-10) Platelet Estimate Adequate (ADEQUATE) Hypochromasia Slight Anisocytosis Slight Sodium Level 144mmol/L (136-145) Potassium Level 4.2mmol/L (3.5-5.1) Chloride Level 108mmol/L (98-107) Carbon Dioxide Level 23mmol/L (21-32) Anion Gap 13 (6-14) Blood Urea Nitrogen 21mg/dL (7-20) Creatinine 1.7mg/dL (0.6-1.0) Estimated GFR (Cockcroft-Gault) 32.8 Glucose Level 422mg/dL (70-99) Calcium Level 8.4mg/dL (8.5-10.1) Laboratory Tests Test 11/04/16 16:27 11/04/16 20:32 11/05/16 04:00 11/05/16 07:46 Glucose (Fingerstick) 435mg/dL (70-99) 483mg/dL (70-99) 388mg/dL (70-99) White Blood Count 9.9x10^3/uL (4.0-11.0) Red Blood Count 3.71x10^6/uL (3.50-5.40) Hemoglobin 9.0g/dL (12.0-15.5) Hematocrit 29.2% (36.0-47.0) Mean Corpuscular Volume 79fL (79-100) Mean Corpuscular Hemoglobin 24pg (25-35) Mean Corpuscular Hemoglobin Concent 31g/dL (31-37) Red Cell Distribution Width 19.7% (11.5-14.5) Platelet Count 284x10^3/uL (140-400) Neutrophils (%) (Auto) 92% (31-73) Lymphocytes (%) (Auto) 5% (24-48) Monocytes (%) (Auto) 3% (0-9) Eosinophils (%) (Auto) 0% (0-3) Basophils (%) (Auto) 0% (0-3) Neutrophils # (Auto) 9.1x10^3uL (1.8-7.7) Lymphocytes # (Auto) 0.5x10^3/uL (1.0-4.8) Monocytes # (Auto) 0.3x10^3/uL (0.0-1.1) Eosinophils # (Auto) 0.0x10^3/uL (0.0-0.7) Basophils # (Auto) 0.0x10^3/uL (0.0-0.2) Segmented Neutrophils % 78% (35-66) Band Neutrophils % 10% (0-9) Lymphocytes % 10% (24-48) Monocytes % 2% (0-10) Platelet Estimate Adequate (ADEQUATE) Hypochromasia Slight Anisocytosis Slight Sodium Level 144mmol/L (136-145) Potassium Level 4.2mmol/L (3.5-5.1) Chloride Level 108mmol/L (98-107) Carbon Dioxide Level 23mmol/L (21-32) Anion Gap 13 (6-14) Blood Urea Nitrogen 21mg/dL (7-20) Creatinine 1.7mg/dL (0.6-1.0) Estimated GFR (Cockcroft-Gault) 32.8 Glucose Level 422mg/dL (70-99) Calcium Level 8.4mg/dL (8.5-10.1) Test 11/05/16 11:20 Glucose (Fingerstick) 417mg/dL (70-99) Microbiology 10/30/16 Blood Culture - Final, Complete NO GROWTH AFTER 5 DAYS Medications Current Medications Sodium Chloride 10 ml 10 ml QSHIFT PRN IV AFTER MEDS AND BLOOD DRAWS; Start 09/02 at 23:30 Sodium Chloride (Iv Sodium Chloride 0.9% 500ml Bag) 500 ml @ 500 mls/hr 1X ONCE IV Last administered on 10/29/16t 23:43; Start 10/29/16 at 23:45; Stop at 00:44; Status DC Albuterol/ Ipratropium 3 ml 3 ml 1X ONCE NEB Last administered on 10/30/16 00 :31; Start 10/30/16 at 00:15; Stop 10/30/16 at 00:57; Status DC Piperacillin Sod/ Tazobactam Sod 3.375 gm/Sodium Chloride 50 ml @ 100 mls/hr 1X ONCE IV Last administered on 10/30/16 02:38; Start 10/30/16 at 01:00; Stop 10/30/16 at 01:29; Status DC Ciprofloxacin Lactate (Cipro 400mg Premix) 200 ml @ 200 mls/hr 1X ONCE IV Last administered on 10/30/16 03:35; Start 10/30/16 at 01:30; Stop 10/30/16 at 02:29; Status DC Vancomycin HCl (Vanco Per Pharmacy) 1 each PRN DAILY PRN MC SEE COMMENTS Last administered on 11/01/16 14:32; Start 10/30/16 at 00:30; Stop 11/02/16 at 07:27 ; Status DC Albuterol/ Ipratropium (Duoneb) 3 ml RTQID NEB Last administered on 10/31/16 07:06; Start 10/30/16 at 08:00; Stop 10/31/16 at 07:59; Status DC Piperacillin Sod/ Tazobactam Sod 1 each 1 each PRN DAILY PRN MC SEE COMMENTS; Start 10/30/16 at 00:30; Stop 11/01/16 at 13:16; Status DC Ciprofloxacin Lactate (Cipro 400mg Premix) 200 ml @ 200 mls/hr Q12HR IV Last administered on 11/01/16 21:38; Start 10/30/16 at 21:00; Stop 11/02/16 at 07:27 ; Status DC Famotidine (Pepcid) 20 mg BID PO Last administered on 10/30/16 21:33; Start at 02:00; Stop 11/01/16 at 09:19; Status DC Insulin Human Regular 10 unit 10 unit 1X ONCE IV Last administered on 02:33; Start 10/30/16 at 01:00; Stop 10/30/16 at 01:01; Status DC Vancomycin HCl 2 gm/Sodium Chloride 500 ml @ 250 mls/hr 1X ONCE IV Last administered on 10/30/16 04:56; Start 10/30/16 at 05:00; Stop 10/30/16 at 06:59 ; Status DC Piperacillin Sod/ Tazobactam Sod/ Sodium Chloride (Zosyn/Iv Sodium Chloride 0.9 % 100ml) 100 ml @ 200 mls/hr Q6HRS IV Last administered on 11/05/16 11:26; Start 10/30/16 at 08:00 Promethazine HCl/ Codeine (Phenergan With Codeine) 5 ml PRN Q4HRS PRN PO COUGH Last administered on 11/04/16 21:53; Start 10/30/16 at 10:15 Acetaminophen/ Hydrocodone Bitart 1 tab 1 tab PRN Q4HRS PRN PO PAIN Last administered on 10/30/16 10:30; Start 10/30/16 at 10:15; Stop 10/30/16 at 11:31 ; Status DC Vancomycin HCl/ Sodium Chloride (Iv Sodium Chloride 0.9% 500ml Bag) 500 ml @ 250 mls/hr Q12H IV Last administered on 11/02/16 04:42; Start 10/30/16 at 17: 00; Stop 11/02/16 at 07:27; Status DC Vancomycin HCl 1 each 1X ONCE MC Last administered on 10/31/16 16:30; Start 10/31/16 at 16:30; Stop 10/31/16 at 16:31; Status DC Cyclobenzaprine HCl (Flexeril) 10 mg TID PO Last administered on 10/30/16 21: 33; Start 10/30/16 at 14:00; Stop 11/01/16 at 10:21; Status DC Diazepam (Valium) 5 mg DAILY PO Last administered on 11/01/16 09:00; Start at 12:30; Stop 11/01/16 at 10:21; Status DC Diltiazem HCl (Cardizem 24hr Cd) 120 mg DAILY PO Last administered on 08:36; Start 10/30/16 at 12:30 Escitalopram Oxalate (Lexapro) 5 mg DAILY PO Last administered on 11/03/16 08: 03; Start 10/30/16 at 12:30; Stop 11/03/16 at 18:48; Status DC Ferrous Sulfate (Feosol) 325 mg DAILY PO Last administered on 11/05/16 08:35; Start 10/30/16 at 12:30 Acetaminophen/ Hydrocodone Bitart (Lortab 5/325) 1 tab PRN QID PRN PO MODERATE PAIN Last administered on 11/04/16 21:53; Start 10/30/16 at 11:30 Nystatin (Mycostatin) 1 vianney BID TP Last administered on 11/05/16 08:36; Start 10/30/16 at 12:30 Simvastatin (Zocor) 40 mg HS PO Last administered on 11/04/16 21:45; Start at 21:00 Zolpidem Tartrate (Ambien) 5 mg PRN QHS PRN PO INSOMNIA Last administered on 20:44; Start 10/30/16 at 11:30; Stop 11/04/16 at 12:44; Status DC Albuterol Sulfate (Ventolin Neb Soln) 2.5 mg PRN Q4HRS PRN NEB SHORTNESS OF BREATH Last administered on 11/05/16 09:30; Start 10/30/16 at 11:45 Budesonide (Pulmicort) 0.5 mg RTBID NEB Last administered on 11/05/16 07:07; Start 10/30/16 at 20:00 Non-Formulary Medication 500 mg QID PO ; Start 10/30/16 at 13:00; Stop 10/30/16 at 13:00; Status DC Cetirizine HCl (Zyrtec) 10 mg DAILY PO Last administered on 11/05/16 08:36; Start 10/30/16 at 12:30 Gabapentin (Neurontin) 800 mg TID PO Last administered on 11/05/16 08:35; Start 10/30/16 at 14:00 Insulin Aspart (Novolog) 27 units TIDAC SQ Last administered on 10/31/16 13:49 ; Start 10/30/16 at 12:00; Stop 11/01/16 at 10:21; Status DC Insulin Detemir (Levemir) 70 units QHS SQ Last administered on 10/31/16 21:10 ; Start 10/30/16 at 21:00; Stop 11/01/16 at 13:13; Status DC Non-Formulary Medication 1.8 mg DAILY SQ ; Start 10/31/16 at 09:00; Stop at 07:09; Status DC Pantoprazole Sodium (Protonix) 40 mg DAILYAC PO Last administered on 11/05/16 08:35; Start 10/30/16 at 12:30 Aspirin (Ecotrin) 81 mg DAILYWBKFT PO ; Start 10/30/16 at 12:30; Stop 10/31/16 at 10:40; Status DC Acetaminophen/ Hydrocodone Bitart (Lortab 5/325) 2 tab PRN QID PRN PO SEVERE PAIN Last administered on 11/01/16 09:31; Start 10/30/16 at 11:45 Lisinopril (Prinivil) 10 mg DAILY PO Last administered on 10/30/16 17:13; Start 10/30/16 at 17:00; Stop 10/31/16 at 10:37; Status DC Throat Lozenges 1 abena 1 abena PRN Q2HRS PRN PO SORE THROAT; Start 10/30/16 at 18: 15 Sodium Chloride (Iv Sodium Chloride 0.9% 500ml Bag) 500 ml @ 500 mls/hr 1X ONCE IV Last administered on 10/31/16 08:00; Start 10/31/16 at 08:30; Stop at 09:29; Status DC Iohexol (Omnipaque 240 Mg/ml) 30 ml 1X ONCE PO Last administered on 10/31/16 09:00; Start 10/31/16 at 09:00; Stop 10/31/16 at 09:03; Status DC Info 1 each 1 each PRN DAILY PRN MC SEE COMMENTS; Start 10/31/16 at 09:15; Stop 11/02/16 at 09:14; Status DC Sodium Chloride (Iv Sodium Chloride 0.45%) 1,000 ml @ 125 mls/hr 1X ONCE IV Last administered on 10/31/16 11:24; Start 10/31/16 at 11:00; Stop 10/31/16 at 19:00; Status DC Ondansetron HCl (Zofran) 4 mg STK-MED ONCE .ROUTE ; Start 11/01/16 at 09:25; Stop 11/01/16 at 09:26; Status DC Insulin Aspart (Novolog) 20 units TIDAC SQ Last administered on 11/02/16 13:03 ; Start 11/01/16 at 11:30; Stop 11/02/16 at 14:43; Status DC Alprazolam 0.25 mg 0.25 mg PRN Q8HRS PRN PO ANXIETY / AGITATION Last administered on 11/03/16 20:44; Start 11/01/16 at 10:30 Sodium Chloride (Iv Sodium Chloride 0.45%) 1,000 ml @ 75 mls/hr 1X ONCE IV Last administered on 11/01/16 13:57; Start 11/01/16 at 10:30; Stop 11/01/16 at 23:49; Status DC Insulin Detemir (Levemir) 60 units QHS SQ ; Start 11/01/16 at 21:00; Stop at 14:43; Status DC Piperacillin Sod/ Tazobactam Sod (Zosyn Per Pharmacy) 1 each PRN DAILY PRN MC SEE COMMENTS; Start 11/01/16 at 13:15; Stop 11/01/16 at 13:16; Status DC Guaifenesin (Mucinex) 600 mg BID PO Last administered on 11/05/16 08:36; Start 11/01/16 at 14:00 Guaifenesin (Robitussin) 200 mg PRN Q4HRS PRN PO COUGH; Start 11/01/16 at 13:15 Ondansetron HCl (Zofran) 4 mg STK-MED ONCE .ROUTE ; Start 11/01/16 at 09:25; Stop 11/02/16 at 08:23; Status DC Insulin Aspart (Novolog) 15 units TIDAC SQ Last administered on 11/03/16 17:16 ; Start 11/02/16 at 16:30; Stop 11/03/16 at 20:43; Status DC Insulin Detemir 40 units 40 units QHS SQ Last administered on 11/03/16 20:50; Start 11/02/16 at 21:00; Stop 11/04/16 at 06:31; Status DC Sodium Chloride 1,000 ml @ 150 mls/hr Q6H40M IV Last administered on 11:25; Start 11/02/16 at 14:45 Iron Sucrose/ Sodium Chloride (Venofer/Iv Sodium Chloride 0.9% 250ml) 270 ml @ 90 mls/hr DAILY IV Last administered on 11/04/16 11:04; Start 11/02/16 at 15: 00; Stop 11/04/16 at 12:39; Status DC Methylprednisolone Sodium Succinate (Solu-Medrol 125mg Vial) 60 mg Q12HR IV Last administered on 11/04/16 21:44; Start 11/03/16 at 10:00; Stop 11/05/16 at 08:09; Status DC Escitalopram Oxalate (Lexapro) 5 mg DAILY PO Last administered on 11/05/16 08: 34; Start 11/04/16 at 09:00 Insulin Aspart (Novolog) 0-9 UNITS TIDWMEALS SQ Last administered on 11/05/16 08:42; Start 11/04/16 at 08:00 Dextrose 12.5 gm PRN Q15MIN PRN IV SEE COMMENTS; Start 11/03/16 at 20:45 Insulin Aspart (Novolog) 10 units 1X ONCE SQ Last administered on 11/03/16 21 :42; Start 11/03/16 at 21:30; Stop 11/03/16 at 21:31; Status DC Insulin Aspart (Novolog) 10 units 1X ONCE SQ Last administered on 11/03/16 23 :35; Start 11/03/16 at 23:45; Stop 11/03/16 at 23:46; Status DC Insulin Detemir (Levemir) 50 units QHS SQ ; Start 11/04/16 at 21:00; Stop at 21:00; Status DC Heparin Sodium (Porcine) 5,000 unit Q8HRS SQ Last administered on 11/05/16 05: 46; Start 11/04/16 at 14:00 Ferrous Sulfate 325 mg 325 mg QHS PO ; Start 11/04/16 at 21:00; Stop 11/04/16 at 21:00; Status DC Iron Sucrose/ Sodium Chloride (Venofer/Iv Sodium Chloride 0.9% 250ml) 270 ml @ 90 mls/hr DAILY IV ; Start 11/05/16 at 09:00; Stop 11/04/16 at 14:59; Status UNV Insulin Detemir (Levemir) 70 units QHS SQ Last administered on 11/04/16 21:51 ; Start 11/04/16 at 21:00 Albuterol/ Ipratropium (Duoneb) 3 ml RTQID NEB Last administered on 11/05/16 11:31; Start 11/04/16 at 16:00 Insulin Aspart (Novolog) 20 units 1X ONCE SQ Last administered on 11/04/16 17 :47; Start 11/04/16 at 17:30; Stop 11/04/16 at 17:31; Status DC Labetalol HCl (Normodyne) 10 mg PRN Q2HR PRN IVP HYPERTENSION, SEE COMMENTS Last administered on 11/05/16 08:53; Start 11/04/16 at 22:45 Prednisone (Prednisone) 40 mg DAILY PO Last administered on 11/05/16 09:00; Start 11/05/16 at 09:00 Insulin Aspart (Novolog) 20 units TIDAC SQ ; Start 11/05/16 at 11:30; Stop 11/05 at 11:57; Status DC Insulin Aspart (Novolog) 27 units TIDAC SQ ; Start 11/05/16 at 12:00 Active Scripts Active Nystatin 15 Gm Cream..g. 1 [place] TP BID 10 Days Ambien (Zolpidem Tartrate) 5 Mg Tablet 5 Mg PO PRN QHS PRN [place] 5-325 Tablet (Acetaminophen/Hydrocodone Bitart) 1 Each Tablet 1-2 Tab PO Q4-6HRS Reported Aspirin Ec (Aspirin) 81 Mg Tablet. 81 Mg PO DAILY Gabapentin 800 Mg Tablet 800 Mg PO TID Victoza 3-[place] (Liraglutide) 0.6 Mg/0.1 Ml Pen.injctr 1.8 Mg SQ DAILY Omeprazole 40 Mg Capsule. 40 Mg PO DAILY Cyclobenzaprine Hcl 10 Mg Tablet 10 Mg PO TID Iron (Ferrous Sulfate) 325 Mg Tablet 325 Mg PO DAILY Valium (Diazepam) 5 Mg Tablet 5 Mg PO DAILY Lexapro (Escitalopram Oxalate) 5 Mg Tablet 5 Mg PO DAILY Fexofenadine Hcl 180 Mg Tablet 180 Mg PO DAILY Albuterol Sulfate Conc Neb Soln (Albuterol Sulfate) 2.5 Mg/0.5 Ml Vial.neb 2.5 Mg NEB Q4HRS PRN Simvastatin 40 Mg Tablet 40 Mg PO HS Diltiazem 24HR Cd (Diltiazem Hcl) 120 Mg Cap.er.24h 120 Mg PO DAILY Symbicort 160-4.5 Mcg Inhaler (Budesonide/Formoterol Fumarate) 10.2 Gm Hfa.aer.ad 2 Puff IH BID Novolog (Insulin Aspart) 100 Unit/1 Ml Cartridge 27 Unit SQ TIDAC Lantus (Insulin Glargine,Hum.rec.anlog) 100 Unit/1 Ml Vial 70 Unit SQ HS Vitals/I & O Vital Sign - Last 24 Hours 11/04/16 11/04/16 11/04/16 11/04/16 15:18 15:47 19:45 20:47 Temp 98.1 97.9 98.1 97.9 Pulse 99 98 Resp B/P 162/86 165/95 Pulse Ox 93 92 94 O2 Delivery Nasal Cannula Nasal Cannula Nasal Cannula Nasal Cannula O2 Flow Rate 3.0 3.0 3.0 3.0 11/04/16 11/04/16 11/04/16 11/04/16 21:50 21:53 22:47 22:52 Temp 98.7 98.7 Pulse 93 93 Resp B/P 173/101 173/101 Pulse Ox 92 O2 Delivery Nasal Cannula Nasal Cannula Nasal Cannula O2 Flow Rate 3.0 3.0 3.0 11/04/16 11/05/16 11/05/16 11/05/16 22:55 03:15 07:08 07:45 Temp 98.0 97.5 98.0 97.5 Pulse 85 87 Resp 22 20 B/P 162/96 186/97 Pulse Ox 94 90 91 O2 Delivery Nasal Cannula Nasal Cannula Nasal Cannula Nasal Cannula O2 Flow Rate 3.0 3.0 3.0 3.0 11/05/16 11/05/16 11/05/16 11/05/16 08:00 08:36 08:53 09:30 Pulse 87 B/P 186/97 186/97 Pulse Ox 92 O2 Delivery Nasal Cannula Nasal Cannula O2 Flow Rate 3.0 3.0 11/05/16 11/05/16 10:35 11:31 Temp 97.7 97.7 Pulse 89 Resp 20 B/P 180/95 Pulse Ox 91 91 O2 Delivery Nasal Cannula Nasal Cannula O2 Flow Rate 3.0 3.0 Intake and Output 2/11/04/16 11/05/16 15:00 23:00 07:00 Intake Total 240 ml 600 ml 100 ml Balance 240 ml 600 ml 100 ml MADELEINE MCBRIDE MD Nov 05, 2016 12:12
[2016-11-05] MEDS ORDERED: MAGNESIUM HYDROXIDE 2,400 MG/30 ML ORAL.SUSP. PO PRN (12:15)
[2016-11-05] MEDS ORDERED: POLYETHYLENE GLYCOL 3350 17 GM PACKET. PO PRN (12:15)
[2016-11-05] MEDS: DOCUSATE SODIUM 100 MG CAPSULE PO SCH (12:30)
--- NOTE | 2016-11-05 12:37 | PDOC ---
SUBJECTIVE ROS BIGG doing same OBJECTIVE Vital Signs Vital Signs Date Time Temp Pulse Resp B/P Pulse Ox O2 Delivery O2 Flow Rate FiO2 11/05/16 11:31 91 Nasal Cannula 3.0 11/05/16 10:35 97.7 89 20 180/95 97.7 I & 0 Intake and Output 11/05/16 07:00 Intake Total 940 ml Balance 940 ml Intake Oral 840 ml IV Total 100 ml # Voids 3 PHYSICAL EXAM Physical Exam General Appearance: no apparent distress Skin: warm Respiratory: bilateral CTA x some URT secretions Heart: S1S2 Abdomen: soft, bowel sounds present Genitourinary: bladder not palpable Neurology: alert, oriented, follow commands Assessment Assessment BIGG-ATN - CR stable at 1.7 PLAN CONT IVF'S at lower rate COMMENT/RELEVANT DATA Meds Current Medications Medications (Trade) Dose Ordered Sig/Mo Start Time Stop Time Status Last Admin Dose Admin Acetaminophen/ Hydrocodone Bitart 1 tab 1 tab PRN Q4HRS PRN 10/30/16 10:15 10/30/16 11:31 DC 10/30/16 10:30 1 TAB Acetaminophen/ Hydrocodone Bitart (Lortab 5/325) 2 tab PRN QID PRN 10/30/16 11:45 11/01/16 09:31 1 TAB Albuterol Sulfate (Ventolin Neb Soln) 2.5 mg PRN Q4HRS PRN 10/30/16 11:45 11/05/16 09:30 2.5 MG Albuterol/ Ipratropium (Duoneb) 3 ml RTQID 11/04/16 16:00 11/05/16 11:31 3 ML Albuterol/ Ipratropium 3 ml 3 ml 1X ONCE 10/30/16 00:15 10/30/16 00:57 DC 10/30/16 00:31 3 ML Alprazolam (Xanax) 0.25 mg PRN Q8HRS PRN 11/01/16 10:30 11/03/16 20:44 0.25 MG Aspirin (Ecotrin) 81 mg DAILYWBKFT 10/30/16 12:30 10/31/16 10:40 DC Budesonide (Pulmicort) 0.5 mg RTBID 10/30/16 20:00 11/05/16 07:07 0.5 MG Cetirizine HCl (Zyrtec) 10 mg DAILY 10/30/16 12:30 11/05/16 08:36 10 MG Ciprofloxacin Lactate (Cipro 400mg Premix) 200 ml @ 200 mls/hr Q12HR 10/30/16 21:00 11/02/16 07:27 DC 11/01/16 21:38 200 MLS/HR Cyclobenzaprine HCl (Flexeril) 10 mg TID 10/30/16 14:00 11/01/16 10:21 DC 10/30/16 21:33 10 MG Dextrose 12.5 gm PRN Q15MIN PRN 11/03/16 20:45 Diazepam (Valium) 5 mg DAILY 10/30/16 12:30 11/01/16 10:21 DC 11/01/16 09:00 5 MG Diltiazem HCl (Cardizem 24hr Cd) 120 mg DAILY 10/30/16 12:30 11/05/16 08:36 120 MG Docusate Sodium (Colace) 100 mg DAILY 11/05/16 12:30 Escitalopram Oxalate (Lexapro) 5 mg DAILY 11/04/16 09:00 11/05/16 08:34 5 MG Famotidine (Pepcid) 20 mg BID 10/30/16 02:00 11/01/16 09:19 DC 10/30/16 21:33 20 MG Ferrous Sulfate (Feosol) 325 mg DAILY 10/30/16 12:30 11/05/16 08:35 325 MG Ferrous Sulfate 325 mg 325 mg QHS 11/04/16 21:00 11/04/16 21:00 DC Gabapentin (Neurontin) 800 mg TID 10/30/16 14:00 11/05/16 08:35 800 MG Guaifenesin (Mucinex) 600 mg BID 11/01/16 14:00 11/05/16 08:36 600 MG Guaifenesin (Robitussin) 200 mg PRN Q4HRS PRN 11/01/16 13:15 Heparin Sodium (Porcine) 5,000 unit Q8HRS 11/04/16 14:00 11/05/16 05:46 5,000 UNIT Info (Do NOT chart on this entry -- for MONITORING) 1 each PRN DAILY PRN 10/31/16 09:15 11/02/16 09:14 DC Insulin Aspart (Novolog) 27 units TIDAC 11/05/16 12:00 Insulin Detemir (Levemir) 70 units QHS 11/04/16 21:00 11/04/16 21:51 70 UNITS Insulin Detemir 40 units 40 units QHS 11/02/16 21:00 11/04/16 06:31 DC 11/03/16 20:50 40 UNITS Insulin Human Regular 10 unit 10 unit 1X ONCE 10/30/16 01:00 10/30/16 01:01 DC 10/30/16 02:33 10 UNIT Iohexol (Omnipaque 240 Mg/ml) 30 ml 1X ONCE 10/31/16 09:00 10/31/16 09:03 DC 10/31/16 09:00 30 ML Iron Sucrose/ Sodium Chloride (Venofer/Iv Sodium Chloride 0.9% 250ml) 270 ml @ 90 mls/hr DAILY 11/05/16 09:00 11/04/16 14:59 UNV Labetalol HCl (Normodyne) 10 mg PRN Q2HR PRN 11/04/16 22:45 11/05/16 08:53 10 MG Lisinopril (Prinivil) 10 mg DAILY 10/30/16 17:00 10/31/16 10:37 DC 10/30/16 17:13 10 MG Magnesium Hydroxide (Milk Of Magnesia) 2,400 mg PRN DAILY PRN 11/05/16 12:15 Methylprednisolone Sodium Succinate (Solu-Medrol 125mg Vial) 60 mg Q12HR 11/03/16 10:00 11/05/16 08:09 DC 11/04/16 21:44 60 MG Non-Formulary Medication 1.8 mg DAILY 10/31/16 09:00 11/01/16 07:09 DC Nystatin (Mycostatin) 1 fernandez BID 10/30/16 12:30 11/05/16 08:36 1 FERNANDEZ Ondansetron HCl (Zofran) 4 mg STK-MED ONCE 11/01/16 09:25 11/02/16 08:23 DC Pantoprazole Sodium (Protonix) 40 mg DAILYAC 10/30/16 12:30 11/05/16 08:35 40 MG Piperacillin Sod/ Tazobactam Sod (Zosyn Per Pharmacy) 1 each PRN DAILY PRN 11/01/16 13:15 11/01/16 13:16 DC Piperacillin Sod/ Tazobactam Sod 1 each 1 each PRN DAILY PRN 10/30/16 00:30 11/01/16 13:16 DC Piperacillin Sod/ Tazobactam Sod/ Sodium Chloride (Zosyn/Iv Sodium Chloride 0.9% 50ml) 50 ml @ 100 mls/hr 1X ONCE 10/30/16 01:00 10/30/16 01:29 DC 10/30/16 02:38 100 MLS/HR Piperacillin Sod/ Tazobactam Sod/ Sodium Chloride (Zosyn/Iv Sodium Chloride 0.9% 100ml) 100 ml @ 200 mls/hr Q6HRS 10/30/16 08:00 11/05/16 11:26 200 MLS/HR Polyethylene Glycol (miraLAX PACKET) 17 gm PRN DAILY PRN 11/05/16 12:15 Prednisone (Prednisone) 40 mg DAILY 11/05/16 09:00 11/05/16 09:00 40 MG Promethazine HCl/ Codeine (Phenergan With Codeine) 5 ml PRN Q4HRS PRN 10/30/16 10:15 11/04/16 21:53 5 ML Simvastatin (Zocor) 40 mg HS 10/30/16 21:00 11/04/16 21:45 40 MG Sodium Chloride (Iv Sodium Chloride 0.45%) 1,000 ml @ 75 mls/hr [id number] 11/02/16 14:45 11/05/16 11:25 150 MLS/HR Sodium Chloride (Iv Sodium Chloride 0.9% 500ml Bag) 500 ml @ 500 mls/hr 1X ONCE 10/31/16 08:30 10/31/16 09:29 DC 10/31/16 08:00 500 MLS/HR Sodium Chloride (Normal Saline Flush) 10 ml QSHIFT PRN 10/29/16 23:30 Throat Lozenges 1 abena 1 abena PRN Q2HRS PRN 10/30/16 18:15 Vancomycin HCl 1 each 1X ONCE 10/31/16 16:30 10/31/16 16:31 DC 10/31/16 16:30 1 EACH Vancomycin HCl (Vanco Per Pharmacy) 1 each PRN DAILY PRN 10/30/16 00:30 11/02/16 07:27 DC 11/01/16 14:32 1 EACH Vancomycin HCl 2 gm/Sodium Chloride 500 ml @ 250 mls/hr 1X ONCE 10/30/16 05:00 10/30/16 06:59 DC 10/30/16 04:56 250 MLS/HR Vancomycin HCl/ Sodium Chloride (Iv Sodium Chloride 0.9% 500ml Bag) 500 ml @ 250 mls/hr Q12H 10/30/16 17:00 11/02/16 07:27 DC 11/02/16 04:42 250 MLS/HR Zolpidem Tartrate (Ambien) 5 mg PRN QHS PRN 10/30/16 11:30 11/04/16 12:44 DC 11/03/16 20:44 5 MG Lab Laboratory Tests Test 11/04/16 16:27 11/04/16 20:32 11/05/16 04:00 11/05/16 07:46 Glucose (Fingerstick) 435mg/dL (70-99) 483mg/dL (70-99) 388mg/dL (70-99) White Blood Count 9.9x10^3/uL (4.0-11.0) Red Blood Count 3.71x10^6/uL (3.50-5.40) Hemoglobin 9.0g/dL (12.0-15.5) Hematocrit 29.2% (36.0-47.0) Mean Corpuscular Volume 79fL (79-100) Mean Corpuscular Hemoglobin 24pg (25-35) Mean Corpuscular Hemoglobin Concent 31g/dL (31-37) Red Cell Distribution Width 19.7% (11.5-14.5) Platelet Count 284x10^3/uL (140-400) Neutrophils (%) (Auto) 92% (31-73) Lymphocytes (%) (Auto) 5% (24-48) Monocytes (%) (Auto) 3% (0-9) Eosinophils (%) (Auto) 0% (0-3) Basophils (%) (Auto) 0% (0-3) Neutrophils # (Auto) 9.1x10^3uL (1.8-7.7) Lymphocytes # (Auto) 0.5x10^3/uL (1.0-4.8) Monocytes # (Auto) 0.3x10^3/uL (0.0-1.1) Eosinophils # (Auto) 0.0x10^3/uL (0.0-0.7) Basophils # (Auto) 0.0x10^3/uL (0.0-0.2) Segmented Neutrophils % 78% (35-66) Band Neutrophils % 10% (0-9) Lymphocytes % 10% (24-48) Monocytes % 2% (0-10) Platelet Estimate Adequate (ADEQUATE) Hypochromasia Slight Anisocytosis Slight Sodium Level 144mmol/L (136-145) Potassium Level 4.2mmol/L (3.5-5.1) Chloride Level 108mmol/L (98-107) Carbon Dioxide Level 23mmol/L (21-32) Anion Gap 13 (6-14) Blood Urea Nitrogen 21mg/dL (7-20) Creatinine 1.7mg/dL (0.6-1.0) Estimated GFR (Cockcroft-Gault) 32.8 Glucose Level 422mg/dL (70-99) Calcium Level 8.4mg/dL (8.5-10.1) Test 11/05/16 11:20 Glucose (Fingerstick) 417mg/dL (70-99) ORALIA CHAVES MD Nov 05, 2016 12:37
--- NOTE | 2016-11-05 13:22 | PDOC ---
Infectious Disease Note Subjective Subjective c/o chest congestion, cough and mild SOA ROS ROS GEN: Denies fevers, chills, sweats HEENT: Denies sore throat GI: Denies n/v/d NEURO: Denies dizziness or headaches Vital Sign Vital Signs Vital Signs Date Time Temp Pulse Resp B/P Pulse Ox O2 Delivery O2 Flow Rate FiO2 11/05/16 11:31 91 Nasal Cannula 3.0 11/05/16 10:35 97.7 89 20 180/95 97.7 Physical Exam PHYSICAL EXAM GENERAL: ALert, watching TV, in chair, relaxed appearance LUNGS: Congested, nonlabored. 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, no focal neurologic deficit SKIN: No rash IV: ok Labs Lab Laboratory Tests Test 11/04/16 16:27 11/04/16 20:32 11/05/16 04:00 11/05/16 07:46 Glucose (Fingerstick) 435mg/dL (70-99) 483mg/dL (70-99) 388mg/dL (70-99) White Blood Count 9.9x10^3/uL (4.0-11.0) Red Blood Count 3.71x10^6/uL (3.50-5.40) Hemoglobin 9.0g/dL (12.0-15.5) Hematocrit 29.2% (36.0-47.0) Mean Corpuscular Volume 79fL (79-100) Mean Corpuscular Hemoglobin 24pg (25-35) Mean Corpuscular Hemoglobin Concent 31g/dL (31-37) Red Cell Distribution Width 19.7% (11.5-14.5) Platelet Count 284x10^3/uL (140-400) Neutrophils (%) (Auto) 92% (31-73) Lymphocytes (%) (Auto) 5% (24-48) Monocytes (%) (Auto) 3% (0-9) Eosinophils (%) (Auto) 0% (0-3) Basophils (%) (Auto) 0% (0-3) Neutrophils # (Auto) 9.1x10^3uL (1.8-7.7) Lymphocytes # (Auto) 0.5x10^3/uL (1.0-4.8) Monocytes # (Auto) 0.3x10^3/uL (0.0-1.1) Eosinophils # (Auto) 0.0x10^3/uL (0.0-0.7) Basophils # (Auto) 0.0x10^3/uL (0.0-0.2) Segmented Neutrophils % 78% (35-66) Band Neutrophils % 10% (0-9) Lymphocytes % 10% (24-48) Monocytes % 2% (0-10) Platelet Estimate Adequate (ADEQUATE) Hypochromasia Slight Anisocytosis Slight Sodium Level 144mmol/L (136-145) Potassium Level 4.2mmol/L (3.5-5.1) Chloride Level 108mmol/L (98-107) Carbon Dioxide Level 23mmol/L (21-32) Anion Gap 13 (6-14) Blood Urea Nitrogen 21mg/dL (7-20) Creatinine 1.7mg/dL (0.6-1.0) Estimated GFR (Cockcroft-Gault) 32.8 Glucose Level 422mg/dL (70-99) Calcium Level 8.4mg/dL (8.5-10.1) Test 11/05/16 11:20 Glucose (Fingerstick) 417mg/dL (70-99) Objective Assessment Fever - ? viral given leukopenia and Resp symptoms Leukopenia. improved - on steroids BIGG Hypotension Hypoxia - Asthma Change in MS ? sec to meds Recent hysterectomy Recent UTI Plan Plan of Care Discont Zosyn Change to cefpodox Add Probiotics F/u labs Steroids supportive care Attending Co-Sign Attending Co-Sign The patient was seen and interviewed as well as examined at the bedside. The chart was reviewed. The case was discussed. Agree with the plan of care. KAMRYN FAJARDO APRN Nov 05, 2016 13:21 LEODAN SOTELO MD Nov 05, 2016 14:38
--- NOTE | 2016-11-05 16:50 | RAD ---
Indication shortness of breath with wheezing. PA and lateral views of the chest were obtained and are compared to an examination 2 days previously. There is generalized cardiomegaly, similar. There are extensive bilateral pulmonary infiltrates much worse than on the previous exam. Findings may reflect infection, congestive heart failure, hemorrhage. ARDS is not excluded. IMPRESSION: Substantial worsening in bilateral pulmonary infiltrates. Stable cardiomegaly
[2016-11-05] MEDS: LACTOBACILLUS ACIDOPH & BULGAR 1 TABLET. PO SCH (17:27)
[2016-11-05] MEDS ORDERED: AMOXICILLIN/K CLAV 875/125MG TABLET. PO SCH (21:00)
[2016-11-05] MEDS ORDERED: INSULIN ASPART 300 UNITS/3 ML INSULN.PEN SQ ONE (23:15)
[2016-11-05] MEDS: HYDROCODONE/APAP 5/325MG TABLET. PO PRN (23:17)
[2016-11-05] MEDS: SIMVASTATIN 40 MG TABLET. PO SCH (23:17)
[2016-11-05] MEDS: CEFPODOXIME PROXETIL 200 MG TABLET PO SCH (23:17)
[2016-11-05] MEDS: INSULIN DETEMIR 300 UNITS/3 ML INSULN.PEN. SQ SCH (23:26)
[2016-11-06] VITALS (7 sets, daily range): BP systolic 140–180; BP diastolic 73–99
[2016-11-06] MEDS: IV 1/2 NORMAL SALINE 1,000 ML IV SCH (04:00)
[2016-11-06 05:13] LABS: BASO % 0 % (0-3); EOS % 0 % (0-3); HEMATOCRIT 27.6 % (36.0-47.0); HEMOGLOBIN 8.5 g/dL (12.0-15.5); LYMPH # 0.9 x10^3/uL (1.0-4.8); LYMPH % 9 % (24-48); MEAN CORPUSCULAR HEMOGLOBIN 24 pg (25-35); MEAN CORPUSCULAR HGB CONC 31 g/dL (31-37); MEAN CORPUSCULAR VOLUME 79 fL (79-100); MONO % 7 % (0-9); NEUT % 84 % (31-73); PLATELET COUNT 335 x10^3/uL (140-400); RED CELL DISTRIBUTION WIDTH 19.7 % (11.5-14.5); WHITE BLOOD COUNT 10.4 x10^3/uL (4.0-11.0)
[2016-11-06 05:37] LABS: CALCIUM 8.6 mg/dL (8.5-10.1); CREATININE 1.5 mg/dL (0.6-1.0); GFR 37.9; POTASSIUM 3.3 mmol/L (3.5-5.1)
[2016-11-06] MEDS: HYDROCODONE/APAP 5/325MG TABLET. PO PRN ×2 (06:00→23:07)
[2016-11-06] MEDS: PANTOPRAZOLE 40 MG TABLET. PO SCH (06:00)
[2016-11-06] MEDS: HEPARIN PF for SUB-Q USE 5,000 UNIT/0.5 ML VIAL. SQ SCH ×3 (06:03→22:09)
[2016-11-06] MEDS: INSULIN ASPART 300 UNITS/3 ML INSULN.PEN SQ SCH ×6 (07:30→17:00)
[2016-11-06] MEDS: IPRATRPIUM/ALBUTEROL 0.5/2.5MG 3 ML NEBU. NEB SCH ×3 (08:08→19:12)
[2016-11-06] MEDS: BUDESONIDE 0.5 MG/2 ML NEBU NEB SCH (08:09)
[2016-11-06 08:45] LABS: BACTERIA,URINE 0 /HPF (0-FEW); BILIRUBIN,URINE NEGATIVE (NEG); GLUCOSE,URINE 500 mg/dL (NEG); NITRITE,URINE NEGATIVE (NEG); PROTEIN,URINE NEGATIVE (NEG-TRACE); SQUAMOUS EPITHELIAL CELL,UR FEW /LPF; UROBILINOGEN,URINE 0.2 mg/dL (0.2 mg/dL)
[2016-11-06] MEDS: DILTIAZEM HCL 120 MG CAP.ER.24H PO SCH (09:10)
[2016-11-06] MEDS: DOCUSATE SODIUM 100 MG CAPSULE PO SCH (09:10)
[2016-11-06] MEDS: CETIRIZINE HCL 10 MG TABLET PO SCH (09:10)
[2016-11-06] MEDS: CEFPODOXIME PROXETIL 200 MG TABLET PO SCH ×2 (09:10→21:46)
[2016-11-06] MEDS: LACTOBACILLUS ACIDOPH & BULGAR 1 TABLET. PO SCH ×3 (09:10→17:02)
[2016-11-06] MEDS: GUAIFENESIN ER 600 MG TABLET.ER PO SCH ×2 (09:10→21:46)
[2016-11-06] MEDS: ESCITALOPRAM 10 MG TABLET. PO SCH (09:11)
[2016-11-06] MEDS: FERROUS SULFATE 325 MG TABLET PO SCH (09:11)
[2016-11-06] MEDS: GABAPENTIN 400 MG CAPSULE. PO SCH ×3 (09:11→21:46)
[2016-11-06] MEDS: PREDNISONE 20 MG TABLET PO SCH (09:12)
[2016-11-06] MEDS: NYSTATIN 100,000 UNIT/GM TOPICAL CREAM 15GM TUBE. TP SCH ×2 (10:42→21:45)
[2016-11-06] MEDS ORDERED: MAGNESIUM SULFATE 2GM 50 ML IV PRN (11:00)
--- NOTE | 2016-11-06 11:00 | PDOC ---
SUBJECTIVE ROS BIGG/ ATN doign adn feeling a little better today CVS: no Orthopnea, no CP RESP: no SOB, no MOTTA GI: n Nausea, solange Vomiting : no Dysuria, no Urgency OBJECTIVE Vital Signs Vital Signs Date Time Temp Pulse Resp B/P Pulse Ox O2 Delivery O2 Flow Rate FiO2 11/06/16 09:10 97 140/73 11/06/16 08:18 91 Nasal Cannula 3.0 11/06/16 07:00 97.7 16 97.7 I & 0 Intake and Output 11/06/16 07:00 Intake Total 300 ml Output Total 1425 ml Balance -1125 ml Intake Oral 300 ml Output Urine Total 1425 ml # Voids 1 PHYSICAL EXAM Physical Exam GEN: Awake, Oriented x 3, In no distress EYES: Vision Unchanged, Conjunctiva Normal EN: No EN Drainage, Mucous Membranes moist NECK: no JVD, no JVP, Supple, no Thyromegaly CVS: S1S2, no Murmur, No Gallop, No Rub, + Edema RESP: no Rales, occ/ min URT Rhonchi,no Acc. Muscle Use GI: BS + ve, NO Bruit, Non Tender, Non Distended : no CVA tenderness, no Suprapubic Tenderness DIAGNOSIS/ASSESSMENT Assessment & Plan BIGG/ ATN - better today: Current fluid and E-lyte status does not necessitate emergent need for dialysis. ^Na - change to 1/2Ns for nIVf forn ow low K - add to IVF; check and correct mag if needed Malign HTN: better on Current BP meds as reviewed. See orders for changes. Ch ^ed FSBS - will defer to Primary Team to manage Discussed Plan of Care with pt at bedside Problems: COMMENT/RELEVANT DATA Meds Current Medications Medications (Trade) Dose Ordered Sig/Mo Start Time Stop Time Status Last Admin Dose Admin Acetaminophen/ Hydrocodone Bitart 1 tab 1 tab PRN Q4HRS PRN 10/30/16 10:15 10/30/16 11:31 DC 10/30/16 10:30 1 TAB Acetaminophen/ Hydrocodone Bitart (Lortab 5/325) 2 tab PRN QID PRN 10/30/16 11:45 11/01/16 09:31 1 TAB Albuterol Sulfate (Ventolin Neb Soln) 2.5 mg PRN Q4HRS PRN 10/30/16 11:45 11/05/16 09:30 2.5 MG Albuterol/ Ipratropium (Duoneb) 3 ml RTQID 11/04/16 16:00 11/06/16 08:08 3 ML Albuterol/ Ipratropium 3 ml 3 ml 1X ONCE 10/30/16 00:15 10/30/16 00:57 DC 10/30/16 00:31 3 ML Alprazolam (Xanax) 0.25 mg PRN Q8HRS PRN 11/01/16 10:30 11/03/16 20:44 0.25 MG Amoxicillin/ Clavulanate Potassium (Augmentin 875/ 125mg) 1 tab BID 11/05/16 21:00 11/05/16 21:00 DC Aspirin (Ecotrin) 81 mg DAILYWBKFT 10/30/16 12:30 10/31/16 10:40 DC Budesonide (Pulmicort) 0.5 mg RTBID 10/30/16 20:00 11/06/16 08:09 0.5 MG Cefpodoxime Proxetil (Vantin) 200 mg BID 11/05/16 21:00 11/06/16 09:10 200 MG Cetirizine HCl (Zyrtec) 10 mg DAILY 10/30/16 12:30 11/06/16 09:10 10 MG Ciprofloxacin Lactate (Cipro 400mg Premix) 200 ml @ 200 mls/hr Q12HR 10/30/16 21:00 11/02/16 07:27 DC 11/01/16 21:38 200 MLS/HR Cyclobenzaprine HCl (Flexeril) 10 mg TID 10/30/16 14:00 11/01/16 10:21 DC 10/30/16 21:33 10 MG Dextrose 12.5 gm PRN Q15MIN PRN 11/03/16 20:45 Diazepam (Valium) 5 mg DAILY 10/30/16 12:30 11/01/16 10:21 DC 11/01/16 09:00 5 MG Diltiazem HCl (Cardizem 24hr Cd) 120 mg DAILY 10/30/16 12:30 11/06/16 09:10 120 MG Docusate Sodium (Colace) 100 mg DAILY 2/19/17 12:30 11/06/16 09:10 100 MG Escitalopram Oxalate (Lexapro) 5 mg DAILY 11/04/16 09:00 11/06/16 09:11 5 MG Famotidine (Pepcid) 20 mg BID 10/30/16 02:00 11/01/16 09:19 DC 10/30/16 21:33 20 MG Ferrous Sulfate (Feosol) 325 mg DAILY 10/30/16 12:30 11/06/16 09:11 325 MG Ferrous Sulfate 325 mg 325 mg QHS 11/04/16 21:00 11/04/16 21:00 DC Gabapentin (Neurontin) 800 mg TID 10/30/16 14:00 11/06/16 09:11 800 MG Guaifenesin (Mucinex) 600 mg BID 11/01/16 14:00 11/06/16 09:10 600 MG Guaifenesin (Robitussin) 200 mg PRN Q4HRS PRN 11/01/16 13:15 11/05/16 13:00 200 MG Heparin Sodium (Porcine) 5,000 unit Q8HRS 11/04/16 14:00 11/06/16 06:03 5,000 UNIT Info (Do NOT chart on this entry -- for MONITORING) 1 each PRN DAILY PRN 10/31/16 09:15 11/02/16 09:14 DC Insulin Aspart (Novolog) 15 units 1X ONCE 11/05/16 23:15 11/05/16 23:16 DC 11/05/16 23:27 15 UNITS Insulin Detemir (Levemir) 80 units QHS 11/05/16 21:00 11/05/16 23:26 80 UNITS Insulin Detemir 40 units 40 units QHS 11/02/16 21:00 11/04/16 06:31 DC 11/03/16 20:50 40 UNITS Insulin Human Regular 10 unit 10 unit 1X ONCE 10/30/16 01:00 10/30/16 01:01 DC 10/30/16 02:33 10 UNIT Iohexol (Omnipaque 240 Mg/ml) 30 ml 1X ONCE 10/31/16 09:00 10/31/16 09:03 DC 10/31/16 09:00 30 ML Iron Sucrose/ Sodium Chloride (Venofer/Iv Sodium Chloride 0.9% 250ml) 270 ml @ 90 mls/hr DAILY 11/05/16 09:00 11/04/16 14:59 UNV Labetalol HCl (Normodyne) 10 mg PRN Q2HR PRN 11/04/16 22:45 11/05/16 16:04 10 MG Lactobacillus Acidophilus (Bacid, Ashley-Bid) 1 tab TIDWMEALS 11/05/16 17:00 11/06/16 09:10 1 TAB Lisinopril (Prinivil) 10 mg DAILY 10/30/16 17:00 10/31/16 10:37 DC 10/30/16 17:13 10 MG Magnesium Hydroxide (Milk Of Magnesia) 2,400 mg PRN DAILY PRN 11/05/16 12:15 Methylprednisolone Sodium Succinate (Solu-Medrol 125mg Vial) 60 mg Q12HR 11/03/16 10:00 11/05/16 08:09 DC 11/04/16 21:44 60 MG Non-Formulary Medication 1.8 mg DAILY 10/31/16 09:00 11/01/16 07:09 DC Nystatin (Mycostatin) 1 fernandez BID 10/30/16 12:30 11/06/16 10:42 1 FERNANDEZ Ondansetron HCl (Zofran) 4 mg STK-MED ONCE 11/01/16 09:25 11/02/16 08:23 DC Pantoprazole Sodium (Protonix) 40 mg DAILYAC 10/30/16 12:30 11/06/16 06:00 40 MG Piperacillin Sod/ Tazobactam Sod (Zosyn Per Pharmacy) 1 each PRN DAILY PRN 11/01/16 13:15 11/01/16 13:16 DC Piperacillin Sod/ Tazobactam Sod 1 each 1 each PRN DAILY PRN 10/30/16 00:30 11/01/16 13:16 DC Piperacillin Sod/ Tazobactam Sod/ Sodium Chloride (Zosyn/Iv Sodium Chloride 0.9% 50ml) 50 ml @ 100 mls/hr 1X ONCE 10/30/16 01:00 10/30/16 01:29 DC 10/30/16 02:38 100 MLS/HR Piperacillin Sod/ Tazobactam Sod/ Sodium Chloride (Zosyn/Iv Sodium Chloride 0.9% 100ml) 100 ml @ 200 mls/hr Q6HRS 10/30/16 08:00 11/05/16 14:37 DC 11/05/16 11:26 200 MLS/HR Polyethylene Glycol (miraLAX PACKET) 17 gm PRN DAILY PRN 11/05/16 12:15 Prednisone (Prednisone) 40 mg DAILY 11/05/16 09:00 11/06/16 09:12 40 MG Promethazine HCl/ Codeine (Phenergan With Codeine) 5 ml PRN Q4HRS PRN 10/30/16 10:15 11/04/16 21:53 5 ML Simvastatin (Zocor) 40 mg HS 10/30/16 21:00 11/05/16 23:17 40 MG Sodium Chloride (Iv Sodium Chloride 0.45%) 1,000 ml @ 75 mls/hr [id number] 11/02/16 14:45 11/06/16 04:00 75 MLS/HR Sodium Chloride (Iv Sodium Chloride 0.9% 500ml Bag) 500 ml @ 500 mls/hr 1X ONCE 10/31/16 08:30 10/31/16 09:29 DC 10/31/16 08:00 500 MLS/HR Sodium Chloride (Normal Saline Flush) 10 ml QSHIFT PRN 10/29/16 23:30 Throat Lozenges 1 justin 1 justin PRN Q2HRS PRN 10/30/16 18:15 11/05/16 13:01 1 JUSTIN Vancomycin HCl 1 each 1X ONCE 10/31/16 16:30 10/31/16 16:31 DC 10/31/16 16:30 1 EACH Vancomycin HCl (Vanco Per Pharmacy) 1 each PRN DAILY PRN 10/30/16 00:30 11/02/16 07:27 DC 11/01/16 14:32 1 EACH Vancomycin HCl 2 gm/Sodium Chloride 500 ml @ 250 mls/hr 1X ONCE 10/30/16 05:00 10/30/16 06:59 DC 10/30/16 04:56 250 MLS/HR Vancomycin HCl/ Sodium Chloride (Iv Sodium Chloride 0.9% 500ml Bag) 500 ml @ 250 mls/hr Q12H 10/30/16 17:00 11/02/16 07:27 DC 11/02/16 04:42 250 MLS/HR Zolpidem Tartrate (Ambien) 5 mg PRN QHS PRN 10/30/16 11:30 11/04/16 12:44 DC 11/03/16 20:44 5 MG Lab Laboratory Tests Test 11/05/16 11:20 11/05/16 16:19 11/05/16 21:14 11/06/16 04:20 Glucose (Fingerstick) 417mg/dL (70-99) 480mg/dL (70-99) 395mg/dL (70-99) White Blood Count 10.4x10^3/uL (4.0-11.0) Red Blood Count 3.50x10^6/uL (3.50-5.40) Hemoglobin 8.5g/dL (12.0-15.5) Hematocrit 27.6% (36.0-47.0) Mean Corpuscular Volume 79fL (79-100) Mean Corpuscular Hemoglobin 24pg (25-35) Mean Corpuscular Hemoglobin Concent 31g/dL (31-37) Red Cell Distribution Width 19.7% (11.5-14.5) Platelet Count 335x10^3/uL (140-400) Neutrophils (%) (Auto) 84% (31-73) Lymphocytes (%) (Auto) 9% (24-48) Monocytes (%) (Auto) 7% (0-9) Eosinophils (%) (Auto) 0% (0-3) Basophils (%) (Auto) 0% (0-3) Neutrophils # (Auto) 8.8x10^3uL (1.8-7.7) Lymphocytes # (Auto) 0.9x10^3/uL (1.0-4.8) Monocytes # (Auto) 0.7x10^3/uL (0.0-1.1) Eosinophils # (Auto) 0.0x10^3/uL (0.0-0.7) Basophils # (Auto) 0.0x10^3/uL (0.0-0.2) Sodium Level 148mmol/L (136-145) Potassium Level 3.3mmol/L (3.5-5.1) Chloride Level 110mmol/L (98-107) Carbon Dioxide Level 24mmol/L (21-32) Anion Gap 14 (6-14) Blood Urea Nitrogen 20mg/dL (7-20) Creatinine 1.5mg/dL (0.6-1.0) Estimated GFR (Cockcroft-Gault) 37.9 Glucose Level 231mg/dL (70-99) Calcium Level 8.6mg/dL (8.5-10.1) Test 11/06/16 07:00 11/06/16 08:12 Urine Collection Type Unknown Urine Color Yellow Urine Clarity Clear Urine pH 6.0 Urine Specific Norden 1.015 Urine Protein Negativemg/dL (NEG-TRACE) Urine Glucose (UA) 500mg/dL (NEG) Urine Ketones (Stick) Negativemg/dL (NEG) Urine Blood Large (NEG) Urine Nitrite Negative (NEG) Urine Bilirubin Negative (NEG) Urine Urobilinogen Dipstick 0.2mg/dL (0.2 mg/dL) Urine Leukocyte Esterase Small (NEG) Urine RBC 3-5/HPF (0-2) Urine WBC 5.10/HPF (0-4) Urine Squamous Epithelial Cells Few/LPF Urine Bacteria 0/HPF (0-FEW) Urine Mucus Slight/LPF Glucose (Fingerstick) 136mg/dL (70-99) ORALIA CHAVES MD Nov 06, 2016 11:00
--- NOTE | 2016-11-06 11:12 | PDOC ---
Infectious Disease Note Subjective Subjective Better as far as moving from bed to chair and eating . c/o chest congestion, cough and SOA with activity Slept better A couple loose stools ROS ROS GEN: Denies fevers, chills, sweats HEENT: Denies blurred vision, sore throat CV: Denies chest pain GI: Denies n/v NEURO: Denies confusion, dizziness MSK: Denies joint pain Vital Sign Vital Signs Vital Signs Date Time Temp Pulse Resp B/P Pulse Ox O2 Delivery O2 Flow Rate FiO2 11/06/16 09:10 97 140/73 11/06/16 08:18 91 Nasal Cannula 3.0 11/06/16 07:00 97.7 16 97.7 Physical Exam PHYSICAL EXAM GENERAL: NAD, Alert, in chair HEENT: PERRL, OC/OP- clear NECK: Supple, no JVD, no LN LUNGS: Bilat rhonchi HEART: S1S2, no gallop, no murmur ABD: Soft, NT, no organomegaly, no rebound ,obese EXT: No edema, no cyanosis 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, oriented x 3, no focal neurologic deficit SKIN: No rash IV: ok Labs Lab Laboratory Tests Test 11/05/16 11:20 11/05/16 16:19 11/05/16 21:14 11/06/16 04:20 Glucose (Fingerstick) 417mg/dL (70-99) 480mg/dL (70-99) 395mg/dL (70-99) White Blood Count 10.4x10^3/uL (4.0-11.0) Red Blood Count 3.50x10^6/uL (3.50-5.40) Hemoglobin 8.5g/dL (12.0-15.5) Hematocrit 27.6% (36.0-47.0) Mean Corpuscular Volume 79fL (79-100) Mean Corpuscular Hemoglobin 24pg (25-35) Mean Corpuscular Hemoglobin Concent 31g/dL (31-37) Red Cell Distribution Width 19.7% (11.5-14.5) Platelet Count 335x10^3/uL (140-400) Neutrophils (%) (Auto) 84% (31-73) Lymphocytes (%) (Auto) 9% (24-48) Monocytes (%) (Auto) 7% (0-9) Eosinophils (%) (Auto) 0% (0-3) Basophils (%) (Auto) 0% (0-3) Neutrophils # (Auto) 8.8x10^3uL (1.8-7.7) Lymphocytes # (Auto) 0.9x10^3/uL (1.0-4.8) Monocytes # (Auto) 0.7x10^3/uL (0.0-1.1) Eosinophils # (Auto) 0.0x10^3/uL (0.0-0.7) Basophils # (Auto) 0.0x10^3/uL (0.0-0.2) Sodium Level 148mmol/L (136-145) Potassium Level 3.3mmol/L (3.5-5.1) Chloride Level 110mmol/L (98-107) Carbon Dioxide Level 24mmol/L (21-32) Anion Gap 14 (6-14) Blood Urea Nitrogen 20mg/dL (7-20) Creatinine 1.5mg/dL (0.6-1.0) Estimated GFR (Cockcroft-Gault) 37.9 Glucose Level 231mg/dL (70-99) Calcium Level 8.6mg/dL (8.5-10.1) Test 11/06/16 07:00 11/06/16 08:12 Urine Collection Type Unknown Urine Color Yellow Urine Clarity Clear Urine pH 6.0 Urine Specific [place] 1.015 Urine Protein Negativemg/dL (NEG-TRACE) Urine Glucose (UA) 500mg/dL (NEG) Urine Ketones (Stick) Negativemg/dL (NEG) Urine Blood Large (NEG) Urine Nitrite Negative (NEG) Urine Bilirubin Negative (NEG) Urine Urobilinogen Dipstick 0.2mg/dL (0.2 mg/dL) Urine Leukocyte Esterase Small (NEG) Urine RBC 3-5/HPF (0-2) Urine WBC 5.10/HPF (0-4) Urine Squamous Epithelial Cells Few/LPF Urine Bacteria 0/HPF (0-FEW) Urine Mucus Slight/LPF Glucose (Fingerstick) 136mg/dL (70-99) Objective Assessment Fever - ? viral given leukopenia and Resp symptoms - better Leukopenia. improved - on steroids Resp failure - ? Fluid BIGG Hypotension Hypoxia - Asthma Change in MS ? sec to meds Recent hysterectomy Recent UTI Plan Plan of Care Check BNP Cont cefpodox Cont Probiotics F/u labs Steroids Await pulm f/u supportive care LEODAN SOTELO MD Nov 06, 2016 11:12
[2016-11-06] MEDS: POTASSIUM CHLORIDE 40 MEQ in IV 1/2 NORMAL SALINE 1,000 ML IV SCH (11:56)
[2016-11-06] MEDS ORDERED: POTASSIUM CHLORIDE 20 MEQ TABLET.ER. PO ONE (14:15)
--- NOTE | 2016-11-06 15:29 | PDOC ---
PROGRESS NOTES Chief Complaint Chief Complaint Acute hypoxic respiratory failure ASSESSMENT AND PLAN: 1. Bronchitis: on zosyn 2. Asthma exacerbation: shifted to PO pred sunday 3. Afib: currently rate controlled. cont cardizem 4. Sepsis: hypotension resolved 5. Encephalopathy: thought to be metabolic and toxic (on benzos and opioids at home). remains very lethargic 6. BIGG: vasomotor. creat improving. on 150cc/hr IVF 7. Hypernatremia: improving. 8. DM: poorly controlled with current steroids. obesity, BMI 36 9. Anemia: + recent YESY. s/p PRBC x1. 10. Depression, anxiety d/o : stable mood. cont home lexapro, xanax 11. Prophylaxis: heparin, PPI History of Present Illness History of Present Illness feels better today, she reports wheezing, exam seems btter IVF running at 150cc./hr Creatinine stable Productive cough More awake than prior Clinically looks has ABI, but insurance wont cover for polysomnogram so she has not done it BS much better on 27 novolog TID on po prednisone PT/OT - encourage ambulation Chest physiotherapy seems to be helping IS by RT Dec IVF to 75cc/hr - dw renal Cont cough med Avoid narcs Needs outpt sleep study prn hydralazine - to avoid Bb bec of bronchospasm dw RN, renal, pt and mother Vitals Vitals Vital Signs Date Time Temp Pulse Resp B/P Pulse Ox O2 Delivery O2 Flow Rate FiO2 11/06/16 12:03 Nasal Cannula 3.0 11/06/16 11:32 97.8 84 16 144/78 94 97.8 Physical Exam General: Cooperative, No acute distress, Other (lethargic, answeres appropriately) Heart: Regular rate, No murmurs Lungs: Clear, Other (end rales, slight dull, seems improved from prior notes) Abdomen: Normal bowel sounds, Soft, No tenderness Extremities: No clubbing, No cyanosis, No edema Skin: No rashes Labs LABS Laboratory Tests Test 11/05/16 16:19 11/05/16 21:14 11/06/16 04:20 11/06/16 07:00 Glucose (Fingerstick) 480mg/dL (70-99) 395mg/dL (70-99) White Blood Count 10.4x10^3/uL (4.0-11.0) Red Blood Count 3.50x10^6/uL (3.50-5.40) Hemoglobin 8.5g/dL (12.0-15.5) Hematocrit 27.6% (36.0-47.0) Mean Corpuscular Volume 79fL (79-100) Mean Corpuscular Hemoglobin 24pg (25-35) Mean Corpuscular Hemoglobin Concent 31g/dL (31-37) Red Cell Distribution Width 19.7% (11.5-14.5) Platelet Count 335x10^3/uL (140-400) Neutrophils (%) (Auto) 84% (31-73) Lymphocytes (%) (Auto) 9% (24-48) Monocytes (%) (Auto) 7% (0-9) Eosinophils (%) (Auto) 0% (0-3) Basophils (%) (Auto) 0% (0-3) Neutrophils # (Auto) 8.8x10^3uL (1.8-7.7) Lymphocytes # (Auto) 0.9x10^3/uL (1.0-4.8) Monocytes # (Auto) 0.7x10^3/uL (0.0-1.1) Eosinophils # (Auto) 0.0x10^3/uL (0.0-0.7) Basophils # (Auto) 0.0x10^3/uL (0.0-0.2) Sodium Level 148mmol/L (136-145) Potassium Level 3.3mmol/L (3.5-5.1) Chloride Level 110mmol/L (98-107) Carbon Dioxide Level 24mmol/L (21-32) Anion Gap 14 (6-14) Blood Urea Nitrogen 20mg/dL (7-20) Creatinine 1.5mg/dL (0.6-1.0) Estimated GFR (Cockcroft-Gault) 37.9 Glucose Level 231mg/dL (70-99) Calcium Level 8.6mg/dL (8.5-10.1) RN-Slr-C-Type Natriuretic Peptide 6133pg/mL (0-124) Urine Collection Type Unknown Urine Color Yellow Urine Clarity Clear Urine pH 6.0 Urine Specific [place] 1.015 Urine Protein Negativemg/dL (NEG-TRACE) Urine Glucose (UA) 500mg/dL (NEG) Urine Ketones (Stick) Negativemg/dL (NEG) Urine Blood Large (NEG) Urine Nitrite Negative (NEG) Urine Bilirubin Negative (NEG) Urine Urobilinogen Dipstick 0.2mg/dL (0.2 mg/dL) Urine Leukocyte Esterase Small (NEG) Urine RBC 3-5/HPF (0-2) Urine WBC 5.10/HPF (0-4) Urine Squamous Epithelial Cells Few/LPF Urine Bacteria 0/HPF (0-FEW) Urine Mucus Slight/LPF Test 11/06/16 08:12 11/06/16 10:22 Glucose (Fingerstick) 136mg/dL (70-99) 142mg/dL (70-99) Review of Systems Review of Systems lethargy, cough, weakness no n,v/d Assessment and Plan Assessmemt and Plan Problems Medical Problems: (1) Healthcare-associated pneumonia Status: Acute (2) Hyperglycemia Status: Acute Problems: Comment Review of Relevant I have reviewed the following items emery (where applicable) has been applied. Labs Laboratory Tests Test 11/04/16 16:27 11/04/16 20:32 11/04/16 22:00 11/05/16 04:00 Glucose (Fingerstick) 435mg/dL (70-99) 483mg/dL (70-99) Clostridium difficile Toxin (PCR) Negative (Negative) White Blood Count 9.9x10^3/uL (4.0-11.0) Red Blood Count 3.71x10^6/uL (3.50-5.40) Hemoglobin 9.0g/dL (12.0-15.5) Hematocrit 29.2% (36.0-47.0) Mean Corpuscular Volume 79fL (79-100) Mean Corpuscular Hemoglobin 24pg (25-35) Mean Corpuscular Hemoglobin Concent 31g/dL (31-37) Red Cell Distribution Width 19.7% (11.5-14.5) Platelet Count 284x10^3/uL (140-400) Neutrophils (%) (Auto) 92% (31-73) Lymphocytes (%) (Auto) 5% (24-48) Monocytes (%) (Auto) 3% (0-9) Eosinophils (%) (Auto) 0% (0-3) Basophils (%) (Auto) 0% (0-3) Neutrophils # (Auto) 9.1x10^3uL (1.8-7.7) Lymphocytes # (Auto) 0.5x10^3/uL (1.0-4.8) Monocytes # (Auto) 0.3x10^3/uL (0.0-1.1) Eosinophils # (Auto) 0.0x10^3/uL (0.0-0.7) Basophils # (Auto) 0.0x10^3/uL (0.0-0.2) Segmented Neutrophils % 78% (35-66) Band Neutrophils % 10% (0-9) Lymphocytes % 10% (24-48) Monocytes % 2% (0-10) Platelet Estimate Adequate (ADEQUATE) Hypochromasia Slight Anisocytosis Slight Sodium Level 144mmol/L (136-145) Potassium Level 4.2mmol/L (3.5-5.1) Chloride Level 108mmol/L (98-107) Carbon Dioxide Level 23mmol/L (21-32) Anion Gap 13 (6-14) Blood Urea Nitrogen 21mg/dL (7-20) Creatinine 1.7mg/dL (0.6-1.0) Estimated GFR (Cockcroft-Gault) 32.8 Glucose Level 422mg/dL (70-99) Calcium Level 8.4mg/dL (8.5-10.1) Test 11/05/16 07:46 11/05/16 11:20 11/05/16 16:19 11/05/16 21:14 Glucose (Fingerstick) 388mg/dL (70-99) 417mg/dL (70-99) 480mg/dL (70-99) 395mg/dL (70-99) Test 11/06/16 04:20 11/06/16 07:00 11/06/16 08:12 11/06/16 10:22 White Blood Count 10.4x10^3/uL (4.0-11.0) Red Blood Count 3.50x10^6/uL (3.50-5.40) Hemoglobin 8.5g/dL (12.0-15.5) Hematocrit 27.6% (36.0-47.0) Mean Corpuscular Volume 79fL (79-100) Mean Corpuscular Hemoglobin 24pg (25-35) Mean Corpuscular Hemoglobin Concent 31g/dL (31-37) Red Cell Distribution Width 19.7% (11.5-14.5) Platelet Count 335x10^3/uL (140-400) Neutrophils (%) (Auto) 84% (31-73) Lymphocytes (%) (Auto) 9% (24-48) Monocytes (%) (Auto) 7% (0-9) Eosinophils (%) (Auto) 0% (0-3) Basophils (%) (Auto) 0% (0-3) Neutrophils # (Auto) 8.8x10^3uL (1.8-7.7) Lymphocytes # (Auto) 0.9x10^3/uL (1.0-4.8) Monocytes # (Auto) 0.7x10^3/uL (0.0-1.1) Eosinophils # (Auto) 0.0x10^3/uL (0.0-0.7) Basophils # (Auto) 0.0x10^3/uL (0.0-0.2) Sodium Level 148mmol/L (136-145) Potassium Level 3.3mmol/L (3.5-5.1) Chloride Level 110mmol/L (98-107) Carbon Dioxide Level 24mmol/L (21-32) Anion Gap 14 (6-14) Blood Urea Nitrogen 20mg/dL (7-20) Creatinine 1.5mg/dL (0.6-1.0) Estimated GFR (Cockcroft-Gault) 37.9 Glucose Level 231mg/dL (70-99) Calcium Level 8.6mg/dL (8.5-10.1) LE-Sgu-U-Type Natriuretic Peptide 6133pg/mL (0-124) Urine Collection Type Unknown Urine Color Yellow Urine Clarity Clear Urine pH 6.0 Urine Specific [place] 1.015 Urine Protein Negativemg/dL (NEG-TRACE) Urine Glucose (UA) 500mg/dL (NEG) Urine Ketones (Stick) Negativemg/dL (NEG) Urine Blood Large (NEG) Urine Nitrite Negative (NEG) Urine Bilirubin Negative (NEG) Urine Urobilinogen Dipstick 0.2mg/dL (0.2 mg/dL) Urine Leukocyte Esterase Small (NEG) Urine RBC 3-5/HPF (0-2) Urine WBC 5.10/HPF (0-4) Urine Squamous Epithelial Cells Few/LPF Urine Bacteria 0/HPF (0-FEW) Urine Mucus Slight/LPF Glucose (Fingerstick) 136mg/dL (70-99) 142mg/dL (70-99) Laboratory Tests Test 11/05/16 16:19 11/05/16 21:14 11/06/16 04:20 11/06/16 07:00 Glucose (Fingerstick) 480mg/dL (70-99) 395mg/dL (70-99) White Blood Count 10.4x10^3/uL (4.0-11.0) Red Blood Count 3.50x10^6/uL (3.50-5.40) Hemoglobin 8.5g/dL (12.0-15.5) Hematocrit 27.6% (36.0-47.0) Mean Corpuscular Volume 79fL (79-100) Mean Corpuscular Hemoglobin 24pg (25-35) Mean Corpuscular Hemoglobin Concent 31g/dL (31-37) Red Cell Distribution Width 19.7% (11.5-14.5) Platelet Count 335x10^3/uL (140-400) Neutrophils (%) (Auto) 84% (31-73) Lymphocytes (%) (Auto) 9% (24-48) Monocytes (%) (Auto) 7% (0-9) Eosinophils (%) (Auto) 0% (0-3) Basophils (%) (Auto) 0% (0-3) Neutrophils # (Auto) 8.8x10^3uL (1.8-7.7) Lymphocytes # (Auto) 0.9x10^3/uL (1.0-4.8) Monocytes # (Auto) 0.7x10^3/uL (0.0-1.1) Eosinophils # (Auto) 0.0x10^3/uL (0.0-0.7) Basophils # (Auto) 0.0x10^3/uL (0.0-0.2) Sodium Level 148mmol/L (136-145) Potassium Level 3.3mmol/L (3.5-5.1) Chloride Level 110mmol/L (98-107) Carbon Dioxide Level 24mmol/L (21-32) Anion Gap 14 (6-14) Blood Urea Nitrogen 20mg/dL (7-20) Creatinine 1.5mg/dL (0.6-1.0) Estimated GFR (Cockcroft-Gault) 37.9 Glucose Level 231mg/dL (70-99) Calcium Level 8.6mg/dL (8.5-10.1) IB-Xqb-C-Type Natriuretic Peptide 6133pg/mL (0-124) Urine Collection Type Unknown Urine Color Yellow Urine Clarity Clear Urine pH 6.0 Urine Specific [place] 1.015 Urine Protein Negativemg/dL (NEG-TRACE) Urine Glucose (UA) 500mg/dL (NEG) Urine Ketones (Stick) Negativemg/dL (NEG) Urine Blood Large (NEG) Urine Nitrite Negative (NEG) Urine Bilirubin Negative (NEG) Urine Urobilinogen Dipstick 0.2mg/dL (0.2 mg/dL) Urine Leukocyte Esterase Small (NEG) Urine RBC 3-5/HPF (0-2) Urine WBC 5.10/HPF (0-4) Urine Squamous Epithelial Cells Few/LPF Urine Bacteria 0/HPF (0-FEW) Urine Mucus Slight/LPF Test 11/06/16 08:12 11/06/16 10:22 Glucose (Fingerstick) 136mg/dL (70-99) 142mg/dL (70-99) Microbiology 10/30/16 Blood Culture - Final, Complete NO GROWTH AFTER 5 DAYS Medications Current Medications Sodium Chloride 10 ml 10 ml QSHIFT PRN IV AFTER MEDS AND BLOOD DRAWS; Start 09/02 at 23:30 Sodium Chloride (Iv Sodium Chloride 0.9% 500ml Bag) 500 ml @ 500 mls/hr 1X ONCE IV Last administered on 10/29/16 23:43; Start 10/29/16 at 23:45; Stop at 00:44; Status DC Albuterol/ Ipratropium 3 ml 3 ml 1X ONCE NEB Last administered on 10/30/16 00 :31; Start 10/30/16 at 00:15; Stop 10/30/16 at 00:57; Status DC Piperacillin Sod/ Tazobactam Sod 3.375 gm/Sodium Chloride 50 ml @ 100 mls/hr 1X ONCE IV Last administered on 10/30/16 02:38; Start 10/30/16 at 01:00; Stop 10/30/16 at 01:29; Status DC Ciprofloxacin Lactate (Cipro 400mg Premix) 200 ml @ 200 mls/hr 1X ONCE IV Last administered on 10/30/16 03:35; Start 10/30/16 at 01:30; Stop 10/30/16 at 02:29; Status DC Vancomycin HCl (Vanco Per Pharmacy) 1 each PRN DAILY PRN MC SEE COMMENTS Last administered on 11/01/16 14:32; Start 10/30/16 at 00:30; Stop 11/02/16 at 07:27 ; Status DC Albuterol/ Ipratropium (Duoneb) 3 ml RTQID NEB Last administered on 10/31/16 07:06; Start 10/30/16 at 08:00; Stop 10/31/16 at 07:59; Status DC Piperacillin Sod/ Tazobactam Sod 1 each 1 each PRN DAILY PRN MC SEE COMMENTS; Start 10/30/16 at 00:30; Stop 11/01/16 at 13:16; Status DC Ciprofloxacin Lactate (Cipro 400mg Premix) 200 ml @ 200 mls/hr Q12HR IV Last administered on 11/01/16 21:38; Start 10/30/16 at 21:00; Stop 11/02/16 at 07:27 ; Status DC Famotidine (Pepcid) 20 mg BID PO Last administered on 10/30/16 21:33; Start at 02:00; Stop 11/01/16 at 09:19; Status DC Insulin Human Regular 10 unit 10 unit 1X ONCE IV Last administered on 02:33; Start 10/30/16 at 01:00; Stop 10/30/16 at 01:01; Status DC Vancomycin HCl 2 gm/Sodium Chloride 500 ml @ 250 mls/hr 1X ONCE IV Last administered on 10/30/16 04:56; Start 10/30/16 at 05:00; Stop 10/30/16 at 06:59 ; Status DC Piperacillin Sod/ Tazobactam Sod/ Sodium Chloride (Zosyn/Iv Sodium Chloride 0.9 % 100ml) 100 ml @ 200 mls/hr Q6HRS IV Last administered on 11/05/16 11:26; Start 10/30/16 at 08:00; Stop 11/05/16 at 14:37; Status DC Promethazine HCl/ Codeine (Phenergan With Codeine) 5 ml PRN Q4HRS PRN PO COUGH Last administered on 11/04/16 21:53; Start 10/30/16 at 10:15 Acetaminophen/ Hydrocodone Bitart 1 tab 1 tab PRN Q4HRS PRN PO PAIN Last administered on 10/30/16 10:30; Start 10/30/16 at 10:15; Stop 10/30/16 at 11:31 ; Status DC Vancomycin HCl/ Sodium Chloride (Iv Sodium Chloride 0.9% 500ml Bag) 500 ml @ 250 mls/hr Q12H IV Last administered on 11/02/16 04:42; Start 10/30/16 at 17: 00; Stop 11/02/16 at 07:27; Status DC Vancomycin HCl 1 each 1X ONCE MC Last administered on 10/31/16 16:30; Start 10/31/16 at 16:30; Stop 10/31/16 at 16:31; Status DC Cyclobenzaprine HCl (Flexeril) 10 mg TID PO Last administered on 10/30/16 21: 33; Start 10/30/16 at 14:00; Stop 11/01/16 at 10:21; Status DC Diazepam (Valium) 5 mg DAILY PO Last administered on 11/01/16 09:00; Start at 12:30; Stop 11/01/16 at 10:21; Status DC Diltiazem HCl (Cardizem 24hr Cd) 120 mg DAILY PO Last administered on 09:10; Start 10/30/16 at 12:30 Escitalopram Oxalate (Lexapro) 5 mg DAILY PO Last administered on 11/03/16 08: 03; Start 10/30/16 at 12:30; Stop 11/03/16 at 18:48; Status DC Ferrous Sulfate (Feosol) 325 mg DAILY PO Last administered on 11/06/16 09:11; Start 10/30/16 at 12:30 Acetaminophen/ Hydrocodone Bitart (Lortab 5/325) 1 tab PRN QID PRN PO MODERATE PAIN Last administered on 11/06/16 06:00; Start 10/30/16 at 11:30 Nystatin (Mycostatin) 1 vianney BID TP Last administered on 11/06/16 10:42; Start 10/30/16 at 12:30 Simvastatin (Zocor) 40 mg HS PO Last administered on 11/05/16 23:17; Start at 21:00 Zolpidem Tartrate (Ambien) 5 mg PRN QHS PRN PO INSOMNIA Last administered on 20:44; Start 10/30/16 at 11:30; Stop 11/04/16 at 12:44; Status DC Albuterol Sulfate (Ventolin Neb Soln) 2.5 mg PRN Q4HRS PRN NEB SHORTNESS OF BREATH Last administered on 11/05/16 09:30; Start 10/30/16 at 11:45 Budesonide (Pulmicort) 0.5 mg RTBID NEB Last administered on 11/06/16 08:09; Start 10/30/16 at 20:00 Non-Formulary Medication 500 mg QID PO ; Start 10/30/16 at 13:00; Stop 10/30/16 at 13:00; Status DC Cetirizine HCl (Zyrtec) 10 mg DAILY PO Last administered on 11/06/16 09:10; Start 10/30/16 at 12:30 Gabapentin (Neurontin) 800 mg TID PO Last administered on 11/06/16 13:36; Start 10/30/16 at 14:00 Insulin Aspart (Novolog) 27 units TIDAC SQ Last administered on 10/31/16 13:49 ; Start 10/30/16 at 12:00; Stop 11/01/16 at 10:21; Status DC Insulin Detemir (Levemir) 70 units QHS SQ Last administered on 10/31/16 21:10 ; Start 10/30/16 at 21:00; Stop 11/01/16 at 13:13; Status DC Non-Formulary Medication 1.8 mg DAILY SQ ; Start 10/31/16 at 09:00; Stop at 07:09; Status DC Pantoprazole Sodium (Protonix) 40 mg DAILYAC PO Last administered on 11/06/16 06:00; Start 10/30/16 at 12:30 Aspirin (Ecotrin) 81 mg DAILYWBKFT PO ; Start 10/30/16 at 12:30; Stop 10/31/16 at 10:40; Status DC Acetaminophen/ Hydrocodone Bitart (Lortab 5/325) 2 tab PRN QID PRN PO SEVERE PAIN Last administered on 11/01/16 09:31; Start 10/30/16 at 11:45 Lisinopril (Prinivil) 10 mg DAILY PO Last administered on 10/30/16 17:13; Start 10/30/16 at 17:00; Stop 10/31/16 at 10:37; Status DC Throat Lozenges 1 abena 1 abena PRN Q2HRS PRN PO SORE THROAT Last administered on 13:01; Start 10/30/16 at 18:15 Sodium Chloride (Iv Sodium Chloride 0.9% 500ml Bag) 500 ml @ 500 mls/hr 1X ONCE IV Last administered on 10/31/16 08:00; Start 10/31/16 at 08:30; Stop at 09:29; Status DC Iohexol (Omnipaque 240 Mg/ml) 30 ml 1X ONCE PO Last administered on 10/31/16 09:00; Start 10/31/16 at 09:00; Stop 10/31/16 at 09:03; Status DC Info 1 each 1 each PRN DAILY PRN MC SEE COMMENTS; Start 10/31/16 at 09:15; Stop 11/02/16 at 09:14; Status DC Sodium Chloride (Iv Sodium Chloride 0.45%) 1,000 ml @ 125 mls/hr 1X ONCE IV Last administered on 10/31/16 11:24; Start 10/31/16 at 11:00; Stop 10/31/16 at 19:00; Status DC Ondansetron HCl (Zofran) 4 mg STK-MED ONCE .ROUTE ; Start 11/01/16 at 09:25; Stop 11/01/16 at 09:26; Status DC Insulin Aspart (Novolog) 20 units TIDAC SQ Last administered on 11/02/16 13:03 ; Start 11/01/16 at 11:30; Stop 11/02/16 at 14:43; Status DC Alprazolam 0.25 mg 0.25 mg PRN Q8HRS PRN PO ANXIETY / AGITATION Last administered on 11/03/16 20:44; Start 11/01/16 at 10:30 Sodium Chloride (Iv Sodium Chloride 0.45%) 1,000 ml @ 75 mls/hr 1X ONCE IV Last administered on 11/01/16 13:57; Start 11/01/16 at 10:30; Stop 11/01/16 at 23:49; Status DC Insulin Detemir (Levemir) 60 units QHS SQ ; Start 11/01/16 at 21:00; Stop at 14:43; Status DC Piperacillin Sod/ Tazobactam Sod (Zosyn Per Pharmacy) 1 each PRN DAILY PRN MC SEE COMMENTS; Start 11/01/16 at 13:15; Stop 11/01/16 at 13:16; Status DC Guaifenesin (Mucinex) 600 mg BID PO Last administered on 11/06/16 09:10; Start 11/01/16 at 14:00 Guaifenesin (Robitussin) 200 mg PRN Q4HRS PRN PO COUGH Last administered on 13:00; Start 11/01/16 at 13:15 Ondansetron HCl (Zofran) 4 mg STK-MED ONCE .ROUTE ; Start 11/01/16 at 09:25; Stop 11/02/16 at 08:23; Status DC Insulin Aspart (Novolog) 15 units TIDAC SQ Last administered on 11/03/16 17:16 ; Start 11/02/16 at 16:30; Stop 11/03/16 at 20:43; Status DC Insulin Detemir 40 units 40 units QHS SQ Last administered on 11/03/16 20:50; Start 11/02/16 at 21:00; Stop 11/04/16 at 06:31; Status DC Sodium Chloride 1,000 ml @ 75 mls/hr [id number] IV Last administered on 04:00; Start 11/02/16 at 14:45; Stop 11/06/16 at 10:58; Status DC Iron Sucrose/ Sodium Chloride (Venofer/Iv Sodium Chloride 0.9% 250ml) 270 ml @ 90 mls/hr DAILY IV Last administered on 11/04/16 11:04; Start 11/02/16 at 15: 00; Stop 11/04/16 at 12:39; Status DC Methylprednisolone Sodium Succinate (Solu-Medrol 125mg Vial) 60 mg Q12HR IV Last administered on 11/04/16 21:44; Start 11/03/16 at 10:00; Stop 11/05/16 at 08:09; Status DC Escitalopram Oxalate (Lexapro) 5 mg DAILY PO Last administered on 11/06/16 09: 11; Start 11/04/16 at 09:00 Insulin Aspart (Novolog) 0-9 UNITS TIDWMEALS SQ Last administered on 11/05/16 17:30; Start 11/04/16 at 08:00 Dextrose 12.5 gm PRN Q15MIN PRN IV SEE COMMENTS; Start 11/03/16 at 20:45 Insulin Aspart (Novolog) 10 units 1X ONCE SQ Last administered on 11/03/16 21 :42; Start 11/03/16 at 21:30; Stop 11/03/16 at 21:31; Status DC Insulin Aspart (Novolog) 10 units 1X ONCE SQ Last administered on 11/03/16 23 :35; Start 11/03/16 at 23:45; Stop 11/03/16 at 23:46; Status DC Insulin Detemir (Levemir) 50 units QHS SQ ; Start 11/04/16 at 21:00; Stop at 21:00; Status DC Heparin Sodium (Porcine) 5,000 unit Q8HRS SQ Last administered on 11/06/16 13: 39; Start 11/04/16 at 14:00 Ferrous Sulfate 325 mg 325 mg QHS PO ; Start 11/04/16 at 21:00; Stop 11/04/16 at 21:00; Status DC Iron Sucrose/ Sodium Chloride (Venofer/Iv Sodium Chloride 0.9% 250ml) 270 ml @ 90 mls/hr DAILY IV ; Start 11/05/16 at 09:00; Stop 11/04/16 at 14:59; Status UNV Insulin Detemir (Levemir) 70 units QHS SQ Last administered on 11/04/16 21:51 ; Start 11/04/16 at 21:00; Stop 11/05/16 at 18:43; Status DC Albuterol/ Ipratropium (Duoneb) 3 ml RTQID NEB Last administered on 11/06/16 12:02; Start 11/04/16 at 16:00 Insulin Aspart (Novolog) 20 units 1X ONCE SQ Last administered on 11/04/16 17 :47; Start 11/04/16 at 17:30; Stop 11/04/16 at 17:31; Status DC Labetalol HCl (Normodyne) 10 mg PRN Q2HR PRN IVP HYPERTENSION, SEE COMMENTS Last administered on 11/05/16 16:04; Start 11/04/16 at 22:45 Prednisone (Prednisone) 40 mg DAILY PO Last administered on 11/06/16 09:12; Start 11/05/16 at 09:00 Insulin Aspart (Novolog) 20 units TIDAC SQ ; Start 11/05/16 at 11:30; Stop 11/05 at 11:57; Status DC Insulin Aspart (Novolog) 27 units TIDAC SQ Last administered on 11/05/16 17:31 ; Start 11/05/16 at 12:00; Stop 11/05/16 at 18:43; Status DC Magnesium Hydroxide (Milk Of Magnesia) 2,400 mg PRN DAILY PRN PO CONSTIPATION; Start 11/05/16 at 12:15 Polyethylene Glycol (miraLAX PACKET) 17 gm PRN DAILY PRN PO CONSTIPATION; Start 11/05/16 at 12:15 Docusate Sodium (Colace) 100 mg DAILY PO Last administered on 11/06/16 09:10; Start 11/05/16 at 12:30 Amoxicillin/ Clavulanate Potassium (Augmentin 875/ 125mg) 1 tab BID PO ; Start 11/05/16 at 21:00; Stop 11/05/16 at 21:00; Status DC Lactobacillus Acidophilus (Bacid, Ashley-Bid) 1 tab TIDWMEALS PO Last administered on 11/06/16 12:33; Start 11/05/16 at 17:00 Cefpodoxime Proxetil (Vantin) 200 mg BID PO Last administered on 11/06/16 09: 10; Start 11/05/16 at 21:00 Insulin Aspart (Novolog) 30 units TIDAC SQ ; Start 11/06/16 at 07:30 Insulin Detemir (Levemir) 80 units QHS SQ Last administered on 11/05/16 23:26 ; Start 11/05/16 at 21:00 Insulin Aspart 15 units 15 units 1X ONCE SQ Last administered on 11/05/16 23: 27; Start 11/05/16 at 23:15; Stop 11/05/16 at 23:16; Status DC Potassium Chloride 40 meq/ Sodium Chloride 1,020 ml @ 75 mls/hr [id number] IV Last administered on 11/06/16 11:56; Start 11/06/16 at 10:56 Magnesium Sulfate/ Dextrose (Magnesium Sulfate PREMIX 2GM) 50 ml @ 25 mls/hr PRN DAILY PRN IV for Mag < 1.7 on am labs; Start 11/06/16 at 11:00 Potassium Chloride (Klor-Con) 20 meq 1X ONCE PO Last administered on 15:16; Start 11/06/16 at 14:15; Stop 11/06/16 at 14:16; Status DC Active Scripts Active Nystatin 15 Gm Cream..g. 1 Vianney TP BID 10 Days Ambien (Zolpidem Tartrate) 5 Mg Tablet 5 Mg PO PRN QHS PRN [place] 5-325 Tablet (Acetaminophen/Hydrocodone Bitart) 1 Each Tablet 1-2 Tab PO Q4-6HRS Reported Aspirin Ec (Aspirin) 81 Mg Tablet.dr 81 Mg PO DAILY Gabapentin 800 Mg Tablet 800 Mg PO TID Victoza 3-[place] (Liraglutide) 0.6 Mg/0.1 Ml Pen.injctr 1.8 Mg SQ DAILY Omeprazole 40 Mg Capsule.dr 40 Mg PO DAILY Cyclobenzaprine Hcl 10 Mg Tablet 10 Mg PO TID Iron (Ferrous Sulfate) 325 Mg Tablet 325 Mg PO DAILY Valium (Diazepam) 5 Mg Tablet 5 Mg PO DAILY Lexapro (Escitalopram Oxalate) 5 Mg Tablet 5 Mg PO DAILY Fexofenadine Hcl 180 Mg Tablet 180 Mg PO DAILY Albuterol Sulfate Conc Neb Soln (Albuterol Sulfate) 2.5 Mg/0.5 Ml Vial.neb 2.5 Mg NEB Q4HRS PRN Simvastatin 40 Mg Tablet 40 Mg PO HS Diltiazem 24HR Cd (Diltiazem Hcl) 120 Mg Cap.er.24h 120 Mg PO DAILY Symbicort 160-4.5 Mcg Inhaler (Budesonide/Formoterol Fumarate) 10.2 Gm Hfa.aer.ad 2 Puff IH BID Novolog (Insulin Aspart) 100 Unit/1 Ml Cartridge 27 Unit SQ TIDAC Lantus (Insulin Glargine,Hum.rec.anlog) 100 Unit/1 Ml Vial 70 Unit SQ HS Vitals/I & O Vital Sign - Last 24 Hours 11/05/16 11/05/16 11/05/16 11/05/16 16:00 16:04 19:00 19:49 Temp 97.5 98.2 97.5 98.2 Pulse 91 91 96 Resp 21 B/P 184/95 184/95 169/92 Pulse Ox 91 94 93 O2 Delivery Nasal Cannula Nasal Cannula Nasal Cannula O2 Flow Rate 3.0 3.0 3.0 11/05/16 11/05/16 11/06/16 11/06/16 20:00 22:56 03:12 07:00 Temp 98.8 98.9 98.8 98.9 Pulse 99 84 Resp B/P 166/91 166/91 Pulse Ox 87 92 O2 Delivery Nasal Cannula Nasal Cannula Nasal Cannula Nasal Cannula O2 Flow Rate 3.0 3.0 3.0 2.0 11/06/16 11/06/16 11/06/16 11/06/16 07:00 08:00 08:10 08:18 Temp 97.7 97.7 Pulse 97 Resp 16 B/P 140/73 Pulse Ox 92 91 91 O2 Delivery Nasal Cannula Nasal Cannula Nasal Cannula Nasal Cannula O2 Flow Rate 3.0 3.0 3.0 3.0 11/06/16 11/06/16 11/06/16 09:10 11:32 12:03 Temp 97.8 97.8 Pulse 97 84 Resp 16 B/P 140/73 144/78 Pulse Ox 94 O2 Delivery Nasal Cannula Nasal Cannula O2 Flow Rate 3.0 3.0 Intake and Output 11/05/16 11/05/16 11/06/16 15:00 23:00 07:00 Intake Total 300 ml Output Total 400 ml 1025 ml Balance 300 ml -400 ml -1025 ml SHAHEED ACOSTA MD Nov 06, 2016 15:29
[2016-11-06] MEDS: ALBUTEROL SULFATE 2.5 MG/3 ML NEBU. NEB PRN (16:45)
--- NOTE | 2016-11-06 19:04 | PDOC ---
PULMONARY PROGRESS NOTES Subjective NOT MORE SOA FEELS BETTER Vitals Vital Signs Date Time Temp Pulse Resp B/P Pulse Ox O2 Delivery O2 Flow Rate FiO2 11/06/16 16:47 Nasal Cannula 3.0 11/06/16 15:00 98.6 93 16 165/99 95 98.6 ROS: No Nausea, No Chest Pain, No Abdominal Pain, No Increase Cough General: Alert HEENT: Other (nc ar peerl, throat nose clear) Lungs: Crackles Cardiovascular: S1, S2 Abdomen: Soft, Non-tender Neuro Exam: Alert Extremities: Other Skin: Warm, Dry Labs Laboratory Tests Test 11/04/16 20:32 11/04/16 22:00 11/05/16 04:00 11/05/16 07:46 Glucose (Fingerstick) 483mg/dL (70-99) 388mg/dL (70-99) Clostridium difficile Toxin (PCR) Negative (Negative) White Blood Count 9.9x10^3/uL (4.0-11.0) Red Blood Count 3.71x10^6/uL (3.50-5.40) Hemoglobin 9.0g/dL (12.0-15.5) Hematocrit 29.2% (36.0-47.0) Mean Corpuscular Volume 79fL (79-100) Mean Corpuscular Hemoglobin 24pg (25-35) Mean Corpuscular Hemoglobin Concent 31g/dL (31-37) Red Cell Distribution Width 19.7% (11.5-14.5) Platelet Count 284x10^3/uL (140-400) Neutrophils (%) (Auto) 92% (31-73) Lymphocytes (%) (Auto) 5% (24-48) Monocytes (%) (Auto) 3% (0-9) Eosinophils (%) (Auto) 0% (0-3) Basophils (%) (Auto) 0% (0-3) Neutrophils # (Auto) 9.1x10^3uL (1.8-7.7) Lymphocytes # (Auto) 0.5x10^3/uL (1.0-4.8) Monocytes # (Auto) 0.3x10^3/uL (0.0-1.1) Eosinophils # (Auto) 0.0x10^3/uL (0.0-0.7) Basophils # (Auto) 0.0x10^3/uL (0.0-0.2) Segmented Neutrophils % 78% (35-66) Band Neutrophils % 10% (0-9) Lymphocytes % 10% (24-48) Monocytes % 2% (0-10) Platelet Estimate Adequate (ADEQUATE) Hypochromasia Slight Anisocytosis Slight Sodium Level 144mmol/L (136-145) Potassium Level 4.2mmol/L (3.5-5.1) Chloride Level 108mmol/L (98-107) Carbon Dioxide Level 23mmol/L (21-32) Anion Gap 13 (6-14) Blood Urea Nitrogen 21mg/dL (7-20) Creatinine 1.7mg/dL (0.6-1.0) Estimated GFR (Cockcroft-Gault) 32.8 Glucose Level 422mg/dL (70-99) Calcium Level 8.4mg/dL (8.5-10.1) Test 11/05/16 11:20 11/05/16 16:19 11/05/16 21:14 11/06/16 04:20 Glucose (Fingerstick) 417mg/dL (70-99) 480mg/dL (70-99) 395mg/dL (70-99) White Blood Count 10.4x10^3/uL (4.0-11.0) Red Blood Count 3.50x10^6/uL (3.50-5.40) Hemoglobin 8.5g/dL (12.0-15.5) Hematocrit 27.6% (36.0-47.0) Mean Corpuscular Volume 79fL (79-100) Mean Corpuscular Hemoglobin 24pg (25-35) Mean Corpuscular Hemoglobin Concent 31g/dL (31-37) Red Cell Distribution Width 19.7% (11.5-14.5) Platelet Count 335x10^3/uL (140-400) Neutrophils (%) (Auto) 84% (31-73) Lymphocytes (%) (Auto) 9% (24-48) Monocytes (%) (Auto) 7% (0-9) Eosinophils (%) (Auto) 0% (0-3) Basophils (%) (Auto) 0% (0-3) Neutrophils # (Auto) 8.8x10^3uL (1.8-7.7) Lymphocytes # (Auto) 0.9x10^3/uL (1.0-4.8) Monocytes # (Auto) 0.7x10^3/uL (0.0-1.1) Eosinophils # (Auto) 0.0x10^3/uL (0.0-0.7) Basophils # (Auto) 0.0x10^3/uL (0.0-0.2) Sodium Level 148mmol/L (136-145) Potassium Level 3.3mmol/L (3.5-5.1) Chloride Level 110mmol/L (98-107) Carbon Dioxide Level 24mmol/L (21-32) Anion Gap 14 (6-14) Blood Urea Nitrogen 20mg/dL (7-20) Creatinine 1.5mg/dL (0.6-1.0) Estimated GFR (Cockcroft-Gault) 37.9 Glucose Level 231mg/dL (70-99) Calcium Level 8.6mg/dL (8.5-10.1) [id number]-Type Natriuretic Peptide 6133pg/mL (0-124) Test 11/06/16 07:00 11/06/16 08:12 11/06/16 10:22 11/06/16 16:34 Urine Collection Type Unknown Urine Color Yellow Urine Clarity Clear Urine pH 6.0 Urine Specific [place] 1.015 Urine Protein Negativemg/dL (NEG-TRACE) Urine Glucose (UA) 500mg/dL (NEG) Urine Ketones (Stick) Negativemg/dL (NEG) Urine Blood Large (NEG) Urine Nitrite Negative (NEG) Urine Bilirubin Negative (NEG) Urine Urobilinogen Dipstick 0.2mg/dL (0.2 mg/dL) Urine Leukocyte Esterase Small (NEG) Urine RBC 3-5/HPF (0-2) Urine WBC 5.10/HPF (0-4) Urine Squamous Epithelial Cells Few/LPF Urine Bacteria 0/HPF (0-FEW) Urine Mucus Slight/LPF Glucose (Fingerstick) 136mg/dL (70-99) 142mg/dL (70-99) 330mg/dL (70-99) Laboratory Tests Test 11/05/16 21:14 11/06/16 04:20 11/06/16 07:00 11/06/16 08:12 Glucose (Fingerstick) 395mg/dL (70-99) 136mg/dL (70-99) White Blood Count 10.4x10^3/uL (4.0-11.0) Red Blood Count 3.50x10^6/uL (3.50-5.40) Hemoglobin 8.5g/dL (12.0-15.5) Hematocrit 27.6% (36.0-47.0) Mean Corpuscular Volume 79fL (79-100) Mean Corpuscular Hemoglobin 24pg (25-35) Mean Corpuscular Hemoglobin Concent 31g/dL (31-37) Red Cell Distribution Width 19.7% (11.5-14.5) Platelet Count 335x10^3/uL (140-400) Neutrophils (%) (Auto) 84% (31-73) Lymphocytes (%) (Auto) 9% (24-48) Monocytes (%) (Auto) 7% (0-9) Eosinophils (%) (Auto) 0% (0-3) Basophils (%) (Auto) 0% (0-3) Neutrophils # (Auto) 8.8x10^3uL (1.8-7.7) Lymphocytes # (Auto) 0.9x10^3/uL (1.0-4.8) Monocytes # (Auto) 0.7x10^3/uL (0.0-1.1) Eosinophils # (Auto) 0.0x10^3/uL (0.0-0.7) Basophils # (Auto) 0.0x10^3/uL (0.0-0.2) Sodium Level 148mmol/L (136-145) Potassium Level 3.3mmol/L (3.5-5.1) Chloride Level 110mmol/L (98-107) Carbon Dioxide Level 24mmol/L (21-32) Anion Gap 14 (6-14) Blood Urea Nitrogen 20mg/dL (7-20) Creatinine 1.5mg/dL (0.6-1.0) Estimated GFR (Cockcroft-Gault) 37.9 Glucose Level 231mg/dL (70-99) Calcium Level 8.6mg/dL (8.5-10.1) TA-Lfa-[id number]-Type Natriuretic Peptide 6133pg/mL (0-124) Urine Collection Type Unknown Urine Color Yellow Urine Clarity Clear Urine pH 6.0 Urine Specific [place] 1.015 Urine Protein Negativemg/dL (NEG-TRACE) Urine Glucose (UA) 500mg/dL (NEG) Urine Ketones (Stick) Negativemg/dL (NEG) Urine Blood Large (NEG) Urine Nitrite Negative (NEG) Urine Bilirubin Negative (NEG) Urine Urobilinogen Dipstick 0.2mg/dL (0.2 mg/dL) Urine Leukocyte Esterase Small (NEG) Urine RBC 3-5/HPF (0-2) Urine WBC 5.10/HPF (0-4) Urine Squamous Epithelial Cells Few/LPF Urine Bacteria 0/HPF (0-FEW) Urine Mucus Slight/LPF Test 11/06/16 10:22 11/06/16 16:34 Glucose (Fingerstick) 142mg/dL (70-99) 330mg/dL (70-99) Medications Active Scripts Medications Dose Route/Sig Days Date Category Aspirin Ec (Aspirin) 81 Mg Tablet.dr 81 Mg PO DAILY 10/30/16 Reported Nystatin 15 Gm Cream..g. 1 [place] TP BID 10 08/08/16 Rx Ambien (Zolpidem Tartrate) 5 Mg Tablet 5 Mg PO PRN QHS PRN 08/08/16 Rx [place] 5-325 Tablet (Acetaminophen/Hydrocodone Bitart) 1 Each Tablet 1-2 Tab PO Q4-6HRS 07/30/16 Rx Gabapentin 800 Mg Tablet 800 Mg PO TID 07/28/16 Reported Victoza 3-[place] (Liraglutide) 0.6 Mg/0.1 Ml Pen.injctr 1.8 Mg SQ DAILY 07/28/16 Reported Omeprazole 40 Mg Capsule.dr 40 Mg PO DAILY 07/28/16 Reported Cyclobenzaprine Hcl 10 Mg Tablet 10 Mg PO TID 07/28/16 Reported Iron (Ferrous Sulfate) 325 Mg Tablet 325 Mg PO DAILY 07/28/16 Reported Valium (Diazepam) 5 Mg Tablet 5 Mg PO DAILY 07/28/16 Reported Lexapro (Escitalopram Oxalate) 5 Mg Tablet 5 Mg PO DAILY 07/28/16 Reported Fexofenadine Hcl 180 Mg Tablet 180 Mg PO DAILY 07/28/16 Reported Albuterol Sulfate Conc Neb Soln (Albuterol Sulfate) 2.5 Mg/0.5 Ml Vial.neb 2.5 Mg NEB Q4HRS PRN 07/28/16 Reported Simvastatin 40 Mg Tablet 40 Mg PO HS 07/28/16 Reported Diltiazem 24HR Cd (Diltiazem Hcl) 120 Mg Cap.er.24h 120 Mg PO DAILY 07/28/16 Reported Symbicort 160-4.5 Mcg Inhaler (Budesonide/Formoterol Fumarate) 10.2 Gm Hfa.aer.ad 2 Puff IH BID 07/28/16 Reported Novolog (Insulin Aspart) 100 Unit/1 Ml Cartridge 27 Unit SQ TIDAC 10/02/14 Reported Lantus (Insulin Glargine,Hum.rec.anlog) 100 Unit/1 Ml Vial 70 Unit SQ HS 10/02/[address] reviewed, 1. Mild bibasilar atelectasis. 2. Hepatomegaly with hepatic steatosis. 3. Tiny gas bubbles related to the anterior abdominal wall at the mid pelvic level presumably on a postsurgical basis. There is adjacent streaky inflammation in the subcutaneous fat and within the pelvis, without evidence of a discrete abscess. Impression . 1. Pneumonia Clinically improved now acute chf 2. Acute exacerbation of asthma. 3. Chronic atrial fibrillation. 4. Sepsis POA with hypotension 5. Met and toxic encephalopathy, resolved 6. Suspect ABI 7. CDK Plan . DIURESE Antibx PER ID AVOID SEDATION DVT and GI proph PSG OUT PT GUMARO PYLE MD Nov 06, 2016 19:04
[2016-11-06] MEDS ORDERED: FUROSEMIDE 20 MG/2 ML VIAL IVP ONE (19:15)
[2016-11-06] MEDS: SIMVASTATIN 40 MG TABLET. PO SCH (21:46)
[2016-11-06] MEDS ORDERED: INSULIN ASPART 300 UNITS/3 ML INSULN.PEN SQ ONE (22:00)
[2016-11-06] MEDS: INSULIN DETEMIR 300 UNITS/3 ML INSULN.PEN. SQ SCH (22:10)
[2016-11-07] MEDS: POTASSIUM CHLORIDE 40 MEQ in IV 1/2 NORMAL SALINE 1,000 ML IV SCH (01:34)
[2016-11-07 03:00] VITALS: BP 176/97
[2016-11-07 06:11] LABS: ALBUMIN 2.9 g/dL (3.4-5.0); CALCIUM 8.5 mg/dL (8.5-10.1); CREATININE 1.4 mg/dL (0.6-1.0); POTASSIUM 3.4 mmol/L (3.5-5.1)
[2016-11-07] MEDS: PANTOPRAZOLE 40 MG TABLET. PO SCH (06:35)
[2016-11-07] MEDS: HEPARIN PF for SUB-Q USE 5,000 UNIT/0.5 ML VIAL. SQ SCH ×3 (06:40→20:38)
[2016-11-07 07:00] VITALS: BP 161/89
[2016-11-07] MEDS: INSULIN ASPART 300 UNITS/3 ML INSULN.PEN SQ SCH ×6 (07:30→17:14)
[2016-11-07] MEDS: IPRATRPIUM/ALBUTEROL 0.5/2.5MG 3 ML NEBU. NEB SCH ×5 (08:32→20:16)
[2016-11-07] MEDS: GABAPENTIN 400 MG CAPSULE. PO SCH ×3 (09:04→20:33)
[2016-11-07] MEDS: LACTOBACILLUS ACIDOPH & BULGAR 1 TABLET. PO SCH ×3 (09:04→17:09)
[2016-11-07] MEDS: FERROUS SULFATE 325 MG TABLET PO SCH (09:04)
[2016-11-07] MEDS: GUAIFENESIN ER 600 MG TABLET.ER PO SCH ×2 (09:05→20:33)
[2016-11-07] MEDS: DILTIAZEM HCL 120 MG CAP.ER.24H PO SCH (09:05)
[2016-11-07] MEDS: PREDNISONE 20 MG TABLET PO SCH (09:05)
[2016-11-07] MEDS: ESCITALOPRAM 10 MG TABLET. PO SCH (09:06)
[2016-11-07] MEDS: CETIRIZINE HCL 10 MG TABLET PO SCH (09:06)
[2016-11-07] MEDS: DOCUSATE SODIUM 100 MG CAPSULE PO SCH (09:06)
[2016-11-07] MEDS: CEFPODOXIME PROXETIL 200 MG TABLET PO SCH ×2 (09:06→20:32)
[2016-11-07] MEDS: NYSTATIN 100,000 UNIT/GM TOPICAL CREAM 15GM TUBE. TP SCH ×2 (09:09→20:33)
--- NOTE | 2016-11-07 09:29 | PDOC ---
PULMONARY PROGRESS NOTES Subjective slowing improving Vitals Vital Signs Date Time Temp Pulse Resp B/P Pulse Ox O2 Delivery O2 Flow Rate FiO2 11/07/16 09:05 98 161/89 11/07/16 08:33 98 Nasal Cannula 3.0 11/07/16 03:00 98.5 19 98.5 ROS: No Nausea, No Chest Pain, No Abdominal Pain, No Increase Cough General: Alert, No acute distress HEENT: Other (nc ar peerl, throat nose clear) Lungs: Wheezing (faint post) Cardiovascular: S1, S2 Abdomen: Soft, Non-tender Neuro Exam: Alert Extremities: Other Skin: Warm, Dry Labs Laboratory Tests Test 11/05/16 11:20 11/05/16 16:19 11/05/16 21:14 11/06/16 04:20 Glucose (Fingerstick) 417mg/dL (70-99) 480mg/dL (70-99) 395mg/dL (70-99) White Blood Count 10.4x10^3/uL (4.0-11.0) Red Blood Count 3.50x10^6/uL (3.50-5.40) Hemoglobin 8.5g/dL (12.0-15.5) Hematocrit 27.6% (36.0-47.0) Mean Corpuscular Volume 79fL (79-100) Mean Corpuscular Hemoglobin 24pg (25-35) Mean Corpuscular Hemoglobin Concent 31g/dL (31-37) Red Cell Distribution Width 19.7% (11.5-14.5) Platelet Count 335x10^3/uL (140-400) Neutrophils (%) (Auto) 84% (31-73) Lymphocytes (%) (Auto) 9% (24-48) Monocytes (%) (Auto) 7% (0-9) Eosinophils (%) (Auto) 0% (0-3) Basophils (%) (Auto) 0% (0-3) Neutrophils # (Auto) 8.8x10^3uL (1.8-7.7) Lymphocytes # (Auto) 0.9x10^3/uL (1.0-4.8) Monocytes # (Auto) 0.7x10^3/uL (0.0-1.1) Eosinophils # (Auto) 0.0x10^3/uL (0.0-0.7) Basophils # (Auto) 0.0x10^3/uL (0.0-0.2) Sodium Level 148mmol/L (136-145) Potassium Level 3.3mmol/L (3.5-5.1) Chloride Level 110mmol/L (98-107) Carbon Dioxide Level 24mmol/L (21-32) Anion Gap 14 (6-14) Blood Urea Nitrogen 20mg/dL (7-20) Creatinine 1.5mg/dL (0.6-1.0) Estimated GFR (Cockcroft-Gault) 37.9 Glucose Level 231mg/dL (70-99) Calcium Level 8.6mg/dL (8.5-10.1) JN-Hdj-B-Type Natriuretic Peptide 6133pg/mL (0-124) Test 11/06/16 07:00 11/06/16 08:12 11/06/16 10:22 11/06/16 16:34 Urine Collection Type Unknown Urine Color Yellow Urine Clarity Clear Urine pH 6.0 Urine Specific [place] 1.015 Urine Protein Negativemg/dL (NEG-TRACE) Urine Glucose (UA) 500mg/dL (NEG) Urine Ketones (Stick) Negativemg/dL (NEG) Urine Blood Large (NEG) Urine Nitrite Negative (NEG) Urine Bilirubin Negative (NEG) Urine Urobilinogen Dipstick 0.2mg/dL (0.2 mg/dL) Urine Leukocyte Esterase Small (NEG) Urine RBC 3-5/HPF (0-2) Urine WBC 5.10/HPF (0-4) Urine Squamous Epithelial Cells Few/LPF Urine Bacteria 0/HPF (0-FEW) Urine Mucus Slight/LPF Urine Random Sodium 69mmol/L (Not Estab.) Glucose (Fingerstick) 136mg/dL (70-99) 142mg/dL (70-99) 330mg/dL (70-99) Test 11/06/16 21:11 11/07/16 04:05 11/07/16 07:57 Glucose (Fingerstick) 404mg/dL (70-99) 113mg/dL (70-99) Hemoglobin 8.8g/dL (12.0-15.5) Sodium Level 146mmol/L (136-145) Potassium Level 3.4mmol/L (3.5-5.1) Chloride Level 109mmol/L (98-107) Carbon Dioxide Level 25mmol/L (21-32) Anion Gap 12 (6-14) Blood Urea Nitrogen 18mg/dL (7-20) Creatinine 1.4mg/dL (0.6-1.0) Estimated GFR (Cockcroft-Gault) 41.0 Glucose Level 268mg/dL (70-99) Calcium Level 8.5mg/dL (8.5-10.1) Phosphorus Level 2.0mg/dL (2.6-4.7) Magnesium Level 1.8mg/dL (1.8-2.4) Albumin 2.9g/dL (3.4-5.0) Laboratory Tests Test 11/06/16 10:22 11/06/16 16:34 11/06/16 21:11 11/07/16 04:05 Glucose (Fingerstick) 142mg/dL (70-99) 330mg/dL (70-99) 404mg/dL (70-99) Hemoglobin 8.8g/dL (12.0-15.5) Sodium Level 146mmol/L (136-145) Potassium Level 3.4mmol/L (3.5-5.1) Chloride Level 109mmol/L (98-107) Carbon Dioxide Level 25mmol/L (21-32) Anion Gap 12 (6-14) Blood Urea Nitrogen 18mg/dL (7-20) Creatinine 1.4mg/dL (0.6-1.0) Estimated GFR (Cockcroft-Gault) 41.0 Glucose Level 268mg/dL (70-99) Calcium Level 8.5mg/dL (8.5-10.1) Phosphorus Level 2.0mg/dL (2.6-4.7) Magnesium Level 1.8mg/dL (1.8-2.4) Albumin 2.9g/dL (3.4-5.0) Test 11/07/16 07:57 Glucose (Fingerstick) 113mg/dL (70-99) Medications Active Scripts Medications Dose Route/Sig Days Date Category Aspirin Ec (Aspirin) 81 Mg Tablet.dr 81 Mg PO DAILY 10/30/16 Reported Nystatin 15 Gm Cream..g. 1 [place] TP BID 10 08/08/16 Rx Ambien (Zolpidem Tartrate) 5 Mg Tablet 5 Mg PO PRN QHS PRN 08/08/16 Rx [place] 5-325 Tablet (Acetaminophen/Hydrocodone Bitart) 1 Each Tablet 1-2 Tab PO Q4-6HRS 07/30/16 Rx Gabapentin 800 Mg Tablet 800 Mg PO TID 07/28/16 Reported Victoza 3-[place] (Liraglutide) 0.6 Mg/0.1 Ml Pen.injctr 1.8 Mg SQ DAILY 07/28/16 Reported Omeprazole 40 Mg Capsule.dr 40 Mg PO DAILY 07/28/16 Reported Cyclobenzaprine Hcl 10 Mg Tablet 10 Mg PO TID 07/28/16 Reported Iron (Ferrous Sulfate) 325 Mg Tablet 325 Mg PO DAILY 07/28/16 Reported Valium (Diazepam) 5 Mg Tablet 5 Mg PO DAILY 07/28/16 Reported Lexapro (Escitalopram Oxalate) 5 Mg Tablet 5 Mg PO DAILY 07/28/16 Reported Fexofenadine Hcl 180 Mg Tablet 180 Mg PO DAILY 07/28/16 Reported Albuterol Sulfate Conc Neb Soln (Albuterol Sulfate) 2.5 Mg/0.5 Ml Vial.neb 2.5 Mg NEB Q4HRS PRN 07/28/16 Reported Simvastatin 40 Mg Tablet 40 Mg PO HS 07/28/16 Reported Diltiazem 24HR Cd (Diltiazem Hcl) 120 Mg Cap.er.24h 120 Mg PO DAILY 07/28/16 Reported Symbicort 160-4.5 Mcg Inhaler (Budesonide/Formoterol Fumarate) 10.2 Gm Hfa.aer.ad 2 Puff IH BID 07/28/16 Reported Novolog (Insulin Aspart) 100 Unit/1 Ml Cartridge 27 Unit SQ TIDAC 10/02/14 Reported Lantus (Insulin Glargine,Hum.rec.anlog) 100 Unit/1 Ml Vial 70 Unit SQ HS 10/02/[address] reviewed, 1. Mild bibasilar atelectasis. 2. Hepatomegaly with hepatic steatosis. 3. Tiny gas bubbles related to the anterior abdominal wall at the mid pelvic level presumably on a postsurgical basis. There is adjacent streaky inflammation in the subcutaneous fat and within the pelvis, without evidence of a discrete abscess. Impression . 1. Pneumonia Clinically improved now acute CHF 2. Acute exacerbation of asthma. 3. Chronic atrial fibrillation. 4. Sepsis POA with hypotension,resolved 5. Met and toxic encephalopathy, resolved 6. Suspect ABI 7. CDK Plan . DIURESE PRN Antibx PER ID NEBS AVOID SEDATION STEROIDS DVT and GI proph PSG OUT PT SHANE SULLIVAN MD Nov 07, 2016 09:29
--- NOTE | 2016-11-07 09:35 | PDOC ---
Infectious Disease Note Subjective Subjective Less cough and SOA with activity + Increased Urine output Slept better A couple loose stools ROS ROS GEN: Denies fevers, chills, sweats HEENT: Denies blurred vision, sore throat CV: Denies chest pain GI: Denies n/v. Has a couple loose stools NEURO: Denies confusion, dizziness MSK: Denies weakness, joint pain/swelling Vital Sign Vital Signs Vital Signs Date Time Temp Pulse Resp B/P Pulse Ox O2 Delivery O2 Flow Rate FiO2 11/07/16 09:05 98 161/89 11/07/16 08:33 98 Nasal Cannula 3.0 11/07/16 03:00 98.5 19 98.5 Physical Exam PHYSICAL EXAM GENERAL: NAD, Alert HEENT: PERRL, OC/OP NECK: Supple, no JVD, no LN LUNGS: Clear HEART: S1S2, no gallop, no murmur ABD: Soft, NT, no organomegaly, no rebound EXT: No edema, no cyanosis [employer]SULTANT: Alert, oriented x 3, no focal neurologic deficit SKIN: No rash IV: ok Labs Lab Laboratory Tests Test 11/06/16 10:22 11/06/16 16:34 11/06/16 21:11 11/07/16 04:05 Glucose (Fingerstick) 142mg/dL (70-99) 330mg/dL (70-99) 404mg/dL (70-99) Hemoglobin 8.8g/dL (12.0-15.5) Sodium Level 146mmol/L (136-145) Potassium Level 3.4mmol/L (3.5-5.1) Chloride Level 109mmol/L (98-107) Carbon Dioxide Level 25mmol/L (21-32) Anion Gap 12 (6-14) Blood Urea Nitrogen 18mg/dL (7-20) Creatinine 1.4mg/dL (0.6-1.0) Estimated GFR (Cockcroft-Gault) 41.0 Glucose Level 268mg/dL (70-99) Calcium Level 8.5mg/dL (8.5-10.1) Phosphorus Level 2.0mg/dL (2.6-4.7) Magnesium Level 1.8mg/dL (1.8-2.4) Albumin 2.9g/dL (3.4-5.0) Test 11/07/16 07:57 Glucose (Fingerstick) 113mg/dL (70-99) Objective Assessment Fever - ? viral given leukopenia and Resp symptoms - better Leukopenia. improved - on steroids Resp failure - ? Fluid BIGG Hypotension Hypoxia - Asthma Change in MS ? sec to meds Recent hysterectomy Recent UTI Plan Plan of Care Cont cefpodox wean soon Cont Probiotics F/u labs Steroids supportive care LEODAN SOTELO MD Nov 07, 2016 09:35
[2016-11-07 11:00] VITALS: BP 160/91
[2016-11-07 15:00] VITALS: BP 166/93
--- NOTE | 2016-11-07 15:34 | PDOC ---
PROGRESS NOTES Chief Complaint Chief Complaint Acute hypoxic respiratory failure ASSESSMENT AND PLAN: 1. Bronchitis: on zosyn 2. Asthma exacerbation: shifted to PO pred sunday 3. Afib: currently rate controlled. cont cardizem 4. Sepsis: hypotension resolved 5. Encephalopathy: thought to be metabolic and toxic (on benzos and opioids at home). remains very lethargic 6. BIGG: vasomotor. creat improving. on 150cc/hr IVF 7. Hypernatremia: improving. 8. DM: poorly controlled with current steroids. obesity, BMI 36 9. Anemia: + recent YESY. s/p PRBC x1. 10. Depression, anxiety d/o : stable mood. cont home lexapro, xanax 11. Prophylaxis: heparin, PPI History of Present Illness History of Present Illness feels better today, exam improved likes nebs Q4 suspect ABI, BS much better on po prednisone PT/OT - encourage ambulation Chest physiotherapy seems to be helping IS by RT Vitals Vitals Vital Signs Date Time Temp Pulse Resp B/P Pulse Ox O2 Delivery O2 Flow Rate FiO2 11/07/16 11:36 96 Nasal Cannula 3.0 11/07/16 11:00 97.4 89 18 160/91 97.4 Physical Exam General: Cooperative, No acute distress, Other (lethargic, answeres appropriately) Heart: Regular rate, No murmurs Lungs: Wheezing (faint post) Abdomen: Normal bowel sounds, Soft, No tenderness Extremities: No clubbing, No cyanosis, No edema Skin: No rashes Labs LABS Laboratory Tests Test 11/06/16 16:34 11/06/16 21:11 11/07/16 04:05 11/07/16 07:57 Glucose (Fingerstick) 330mg/dL (70-99) 404mg/dL (70-99) 113mg/dL (70-99) Hemoglobin 8.8g/dL (12.0-15.5) Sodium Level 146mmol/L (136-145) Potassium Level 3.4mmol/L (3.5-5.1) Chloride Level 109mmol/L (98-107) Carbon Dioxide Level 25mmol/L (21-32) Anion Gap 12 (6-14) Blood Urea Nitrogen 18mg/dL (7-20) Creatinine 1.4mg/dL (0.6-1.0) Estimated GFR (Cockcroft-Gault) 41.0 Glucose Level 268mg/dL (70-99) Calcium Level 8.5mg/dL (8.5-10.1) Phosphorus Level 2.0mg/dL (2.6-4.7) Magnesium Level 1.8mg/dL (1.8-2.4) Albumin 2.9g/dL (3.4-5.0) Test 11/07/16 11:40 Glucose (Fingerstick) 151mg/dL (70-99) Review of Systems Review of Systems cough, dyspnea lethargy, weakness, malaise Assessment and Plan Assessmemt and Plan DC plannin soc work consult 6 min walk, may need home healh for pulm still on 3 liters 02 at rest Problems Medical Problems: (1) Healthcare-associated pneumonia Status: Acute (2) Hyperglycemia Status: Acute Problems: Comment Review of Relevant I have reviewed the following items emery (where applicable) has been applied. Labs Laboratory Tests Test 11/05/16 16:19 11/05/16 21:14 11/06/16 04:20 11/06/16 07:00 Glucose (Fingerstick) 480mg/dL (70-99) 395mg/dL (70-99) White Blood Count 10.4x10^3/uL (4.0-11.0) Red Blood Count 3.50x10^6/uL (3.50-5.40) Hemoglobin 8.5g/dL (12.0-15.5) Hematocrit 27.6% (36.0-47.0) Mean Corpuscular Volume 79fL (79-100) Mean Corpuscular Hemoglobin 24pg (25-35) Mean Corpuscular Hemoglobin Concent 31g/dL (31-37) Red Cell Distribution Width 19.7% (11.5-14.5) Platelet Count 335x10^3/uL (140-400) Neutrophils (%) (Auto) 84% (31-73) Lymphocytes (%) (Auto) 9% (24-48) Monocytes (%) (Auto) 7% (0-9) Eosinophils (%) (Auto) 0% (0-3) Basophils (%) (Auto) 0% (0-3) Neutrophils # (Auto) 8.8x10^3uL (1.8-7.7) Lymphocytes # (Auto) 0.9x10^3/uL (1.0-4.8) Monocytes # (Auto) 0.7x10^3/uL (0.0-1.1) Eosinophils # (Auto) 0.0x10^3/uL (0.0-0.7) Basophils # (Auto) 0.0x10^3/uL (0.0-0.2) Sodium Level 148mmol/L (136-145) Potassium Level 3.3mmol/L (3.5-5.1) Chloride Level 110mmol/L (98-107) Carbon Dioxide Level 24mmol/L (21-32) Anion Gap 14 (6-14) Blood Urea Nitrogen 20mg/dL (7-20) Creatinine 1.5mg/dL (0.6-1.0) Estimated GFR (Cockcroft-Gault) 37.9 Glucose Level 231mg/dL (70-99) Calcium Level 8.6mg/dL (8.5-10.1) GA-Fpl-M-Type Natriuretic Peptide 6133pg/mL (0-124) Urine Collection Type Unknown Urine Color Yellow Urine Clarity Clear Urine pH 6.0 Urine Specific [place] 1.015 Urine Protein Negativemg/dL (NEG-TRACE) Urine Glucose (UA) 500mg/dL (NEG) Urine Ketones (Stick) Negativemg/dL (NEG) Urine Blood Large (NEG) Urine Nitrite Negative (NEG) Urine Bilirubin Negative (NEG) Urine Urobilinogen Dipstick 0.2mg/dL (0.2 mg/dL) Urine Leukocyte Esterase Small (NEG) Urine RBC 3-5/HPF (0-2) Urine WBC 5.10/HPF (0-4) Urine Squamous Epithelial Cells Few/LPF Urine Bacteria 0/HPF (0-FEW) Urine Mucus Slight/LPF Urine Random Sodium 69mmol/L (Not Estab.) Test 11/06/16 08:12 11/06/16 10:22 11/06/16 16:34 11/06/16 21:11 Glucose (Fingerstick) 136mg/dL (70-99) 142mg/dL (70-99) 330mg/dL (70-99) 404mg/dL (70-99) Test 11/07/16 04:05 11/07/16 07:57 11/07/16 11:40 Hemoglobin 8.8g/dL (12.0-15.5) Sodium Level 146mmol/L (136-145) Potassium Level 3.4mmol/L (3.5-5.1) Chloride Level 109mmol/L (98-107) Carbon Dioxide Level 25mmol/L (21-32) Anion Gap 12 (6-14) Blood Urea Nitrogen 18mg/dL (7-20) Creatinine 1.4mg/dL (0.6-1.0) Estimated GFR (Cockcroft-Gault) 41.0 Glucose Level 268mg/dL (70-99) Calcium Level 8.5mg/dL (8.5-10.1) Phosphorus Level 2.0mg/dL (2.6-4.7) Magnesium Level 1.8mg/dL (1.8-2.4) Albumin 2.9g/dL (3.4-5.0) Glucose (Fingerstick) 113mg/dL (70-99) 151mg/dL (70-99) Laboratory Tests Test 11/06/16 16:34 11/06/16 21:11 11/07/16 04:05 11/07/16 07:57 Glucose (Fingerstick) 330mg/dL (70-99) 404mg/dL (70-99) 113mg/dL (70-99) Hemoglobin 8.8g/dL (12.0-15.5) Sodium Level 146mmol/L (136-145) Potassium Level 3.4mmol/L (3.5-5.1) Chloride Level 109mmol/L (98-107) Carbon Dioxide Level 25mmol/L (21-32) Anion Gap 12 (6-14) Blood Urea Nitrogen 18mg/dL (7-20) Creatinine 1.4mg/dL (0.6-1.0) Estimated GFR (Cockcroft-Gault) 41.0 Glucose Level 268mg/dL (70-99) Calcium Level 8.5mg/dL (8.5-10.1) Phosphorus Level 2.0mg/dL (2.6-4.7) Magnesium Level 1.8mg/dL (1.8-2.4) Albumin 2.9g/dL (3.4-5.0) Test 11/07/16 11:40 Glucose (Fingerstick) 151mg/dL (70-99) Microbiology 10/30/16 Blood Culture - Final, Complete NO GROWTH AFTER 5 DAYS Medications Current Medications Sodium Chloride 10 ml 10 ml QSHIFT PRN IV AFTER MEDS AND BLOOD DRAWS; Start 09/02 at 23:30 Sodium Chloride (Iv Sodium Chloride 0.9% 500ml Bag) 500 ml @ 500 mls/hr 1X ONCE IV Last administered on 10/29/16 23:43; Start 10/29/16 at 23:45; Stop at 00:44; Status DC Albuterol/ Ipratropium 3 ml 3 ml 1X ONCE NEB Last administered on 10/30/16 00 :31; Start 10/30/16 at 00:15; Stop 10/30/16 at 00:57; Status DC Piperacillin Sod/ Tazobactam Sod 3.375 gm/Sodium Chloride 50 ml @ 100 mls/hr 1X ONCE IV Last administered on 10/30/16 02:38; Start 10/30/16 at 01:00; Stop 10/30/16 at 01:29; Status DC Ciprofloxacin Lactate (Cipro 400mg Premix) 200 ml @ 200 mls/hr 1X ONCE IV Last administered on 10/30/16 03:35; Start 10/30/16 at 01:30; Stop 10/30/16 at 02:29; Status DC Vancomycin HCl (Vanco Per Pharmacy) 1 each PRN DAILY PRN MC SEE COMMENTS Last administered on 11/01/16 14:32; Start 10/30/16 at 00:30; Stop 11/02/16 at 07:27 ; Status DC Albuterol/ Ipratropium (Duoneb) 3 ml RTQID NEB Last administered on 10/31/16 07:06; Start 10/30/16 at 08:00; Stop 10/31/16 at 07:59; Status DC Piperacillin Sod/ Tazobactam Sod 1 each 1 each PRN DAILY PRN MC SEE COMMENTS; Start 10/30/16 at 00:30; Stop 11/01/16 at 13:16; Status DC Ciprofloxacin Lactate (Cipro 400mg Premix) 200 ml @ 200 mls/hr Q12HR IV Last administered on 11/01/16 21:38; Start 10/30/16 at 21:00; Stop 11/02/16 at 07:27 ; Status DC Famotidine (Pepcid) 20 mg BID PO Last administered on 10/30/16 21:33; Start at 02:00; Stop 11/01/16 at 09:19; Status DC Insulin Human Regular 10 unit 10 unit 1X ONCE IV Last administered on 02:33; Start 10/30/16 at 01:00; Stop 10/30/16 at 01:01; Status DC Vancomycin HCl 2 gm/Sodium Chloride 500 ml @ 250 mls/hr 1X ONCE IV Last administered on 10/30/16 04:56; Start 10/30/16 at 05:00; Stop 10/30/16 at 06:59 ; Status DC Piperacillin Sod/ Tazobactam Sod/ Sodium Chloride (Zosyn/Iv Sodium Chloride 0.9 % 100ml) 100 ml @ 200 mls/hr Q6HRS IV Last administered on 11/05/16 11:26; Start 10/30/16 at 08:00; Stop 11/05/16 at 14:37; Status DC Promethazine HCl/ Codeine (Phenergan With Codeine) 5 ml PRN Q4HRS PRN PO COUGH Last administered on 11/04/16 21:53; Start 10/30/16 at 10:15 Acetaminophen/ Hydrocodone Bitart 1 tab 1 tab PRN Q4HRS PRN PO PAIN Last administered on 10/30/16 10:30; Start 10/30/16 at 10:15; Stop 10/30/16 at 11:31 ; Status DC Vancomycin HCl/ Sodium Chloride (Iv Sodium Chloride 0.9% 500ml Bag) 500 ml @ 250 mls/hr Q12H IV Last administered on 11/02/16 04:42; Start 10/30/16 at 17: 00; Stop 11/02/16 at 07:27; Status DC Vancomycin HCl 1 each 1X ONCE MC Last administered on 10/31/16 16:30; Start 10/31/16 at 16:30; Stop 10/31/16 at 16:31; Status DC Cyclobenzaprine HCl (Flexeril) 10 mg TID PO Last administered on 10/30/16 21: 33; Start 10/30/16 at 14:00; Stop 11/01/16 at 10:21; Status DC Diazepam (Valium) 5 mg DAILY PO Last administered on 11/01/16 09:00; Start at 12:30; Stop 11/01/16 at 10:21; Status DC Diltiazem HCl (Cardizem 24hr Cd) 120 mg DAILY PO Last administered on 09:05; Start 10/30/16 at 12:30 Escitalopram Oxalate (Lexapro) 5 mg DAILY PO Last administered on 11/03/16 08: 03; Start 10/30/16 at 12:30; Stop 11/03/16 at 18:48; Status DC Ferrous Sulfate (Feosol) 325 mg DAILY PO Last administered on 11/07/16 09:04; Start 10/30/16 at 12:30 Acetaminophen/ Hydrocodone Bitart (Lortab 5/325) 1 tab PRN QID PRN PO MODERATE PAIN Last administered on 11/06/16 06:00; Start 10/30/16 at 11:30 Nystatin (Mycostatin) 1 vianney BID TP Last administered on 11/07/16 09:09; Start 10/30/16 at 12:30 Simvastatin (Zocor) 40 mg HS PO Last administered on 11/06/16 21:46; Start at 21:00 Zolpidem Tartrate (Ambien) 5 mg PRN QHS PRN PO INSOMNIA Last administered on 20:44; Start 10/30/16 at 11:30; Stop 11/04/16 at 12:44; Status DC Albuterol Sulfate (Ventolin Neb Soln) 2.5 mg PRN Q4HRS PRN NEB SHORTNESS OF BREATH Last administered on 11/06/16 16:45; Start 10/30/16 at 11:45 Budesonide (Pulmicort) 0.5 mg RTBID NEB Last administered on 11/06/16 08:09; Start 10/30/16 at 20:00; Stop 11/06/16 at 19:05; Status DC Non-Formulary Medication 500 mg QID PO ; Start 10/30/16 at 13:00; Stop 10/30/16 at 13:00; Status DC Cetirizine HCl (Zyrtec) 10 mg DAILY PO Last administered on 11/07/16 09:06; Start 10/30/16 at 12:30 Gabapentin (Neurontin) 800 mg TID PO Last administered on 11/07/16 13:35; Start 10/30/16 at 14:00 Insulin Aspart (Novolog) 27 units TIDAC SQ Last administered on 10/31/16 13:49 ; Start 10/30/16 at 12:00; Stop 11/01/16 at 10:21; Status DC Insulin Detemir (Levemir) 70 units QHS SQ Last administered on 10/31/16 21:10 ; Start 10/30/16 at 21:00; Stop 11/01/16 at 13:13; Status DC Non-Formulary Medication 1.8 mg DAILY SQ ; Start 10/31/16 at 09:00; Stop at 07:09; Status DC Pantoprazole Sodium (Protonix) 40 mg DAILYAC PO Last administered on 11/07/16 06:35; Start 10/30/16 at 12:30 Aspirin (Ecotrin) 81 mg DAILYWBKFT PO ; Start 10/30/16 at 12:30; Stop 10/31/16 at 10:40; Status DC Acetaminophen/ Hydrocodone Bitart (Lortab 5/325) 2 tab PRN QID PRN PO SEVERE PAIN Last administered on 11/06/16 23:07; Start 10/30/16 at 11:45 Lisinopril (Prinivil) 10 mg DAILY PO Last administered on 10/30/16 17:13; Start 10/30/16 at 17:00; Stop 10/31/16 at 10:37; Status DC Throat Lozenges 1 abena 1 abena PRN Q2HRS PRN PO SORE THROAT Last administered on 13:01; Start 10/30/16 at 18:15 Sodium Chloride (Iv Sodium Chloride 0.9% 500ml Bag) 500 ml @ 500 mls/hr 1X ONCE IV Last administered on 10/31/16 08:00; Start 10/31/16 at 08:30; Stop at 09:29; Status DC Iohexol (Omnipaque 240 Mg/ml) 30 ml 1X ONCE PO Last administered on 10/31/16 09:00; Start 10/31/16 at 09:00; Stop 10/31/16 at 09:03; Status DC Info 1 each 1 each PRN DAILY PRN MC SEE COMMENTS; Start 10/31/16 at 09:15; Stop 11/02/16 at 09:14; Status DC Sodium Chloride (Iv Sodium Chloride 0.45%) 1,000 ml @ 125 mls/hr 1X ONCE IV Last administered on 10/31/16 11:24; Start 10/31/16 at 11:00; Stop 10/31/16 at 19:00; Status DC Ondansetron HCl (Zofran) 4 mg STK-MED ONCE .ROUTE ; Start 11/01/16 at 09:25; Stop 11/01/16 at 09:26; Status DC Insulin Aspart (Novolog) 20 units TIDAC SQ Last administered on 11/02/16 13:03 ; Start 11/01/16 at 11:30; Stop 11/02/16 at 14:43; Status DC Alprazolam 0.25 mg 0.25 mg PRN Q8HRS PRN PO ANXIETY / AGITATION Last administered on 11/03/16 20:44; Start 11/01/16 at 10:30 Sodium Chloride (Iv Sodium Chloride 0.45%) 1,000 ml @ 75 mls/hr 1X ONCE IV Last administered on 11/01/16 13:57; Start 11/01/16 at 10:30; Stop 11/01/16 at 23:49; Status DC Insulin Detemir (Levemir) 60 units QHS SQ ; Start 11/01/16 at 21:00; Stop at 14:43; Status DC Piperacillin Sod/ Tazobactam Sod (Zosyn Per Pharmacy) 1 each PRN DAILY PRN MC SEE COMMENTS; Start 11/01/16 at 13:15; Stop 11/01/16 at 13:16; Status DC Guaifenesin (Mucinex) 600 mg BID PO Last administered on 11/07/16 09:05; Start 11/01/16 at 14:00 Guaifenesin (Robitussin) 200 mg PRN Q4HRS PRN PO COUGH Last administered on 13:00; Start 11/01/16 at 13:15 Ondansetron HCl (Zofran) 4 mg STK-MED ONCE .ROUTE ; Start 11/01/16 at 09:25; Stop 11/02/16 at 08:23; Status DC Insulin Aspart (Novolog) 15 units TIDAC SQ Last administered on 11/03/16 17:16 ; Start 11/02/16 at 16:30; Stop 11/03/16 at 20:43; Status DC Insulin Detemir 40 units 40 units QHS SQ Last administered on 11/03/16 20:50; Start 11/02/16 at 21:00; Stop 11/04/16 at 06:31; Status DC Sodium Chloride 1,000 ml @ 75 mls/hr [id number] IV Last administered on 04:00; Start 11/02/16 at 14:45; Stop 11/06/16 at 10:58; Status DC Iron Sucrose/ Sodium Chloride (Venofer/Iv Sodium Chloride 0.9% 250ml) 270 ml @ 90 mls/hr DAILY IV Last administered on 11/04/16 11:04; Start 11/02/16 at 15: 00; Stop 11/04/16 at 12:39; Status DC Methylprednisolone Sodium Succinate (Solu-Medrol 125mg Vial) 60 mg Q12HR IV Last administered on 11/04/16 21:44; Start 11/03/16 at 10:00; Stop 11/05/16 at 08:09; Status DC Escitalopram Oxalate (Lexapro) 5 mg DAILY PO Last administered on 11/07/16 09: 06; Start 11/04/16 at 09:00 Insulin Aspart (Novolog) 0-9 UNITS TIDWMEALS SQ Last administered on 11/05/16 17:30; Start 11/04/16 at 08:00 Dextrose 12.5 gm PRN Q15MIN PRN IV SEE COMMENTS; Start 11/03/16 at 20:45 Insulin Aspart (Novolog) 10 units 1X ONCE SQ Last administered on 11/03/16 21 :42; Start 11/03/16 at 21:30; Stop 11/03/16 at 21:31; Status DC Insulin Aspart (Novolog) 10 units 1X ONCE SQ Last administered on 11/03/16 23 :35; Start 11/03/16 at 23:45; Stop 11/03/16 at 23:46; Status DC Insulin Detemir (Levemir) 50 units QHS SQ ; Start 11/04/16 at 21:00; Stop at 21:00; Status DC Heparin Sodium (Porcine) 5,000 unit Q8HRS SQ Last administered on 11/07/16 13: 38; Start 11/04/16 at 14:00 Ferrous Sulfate 325 mg 325 mg QHS PO ; Start 11/04/16 at 21:00; Stop 11/04/16 at 21:00; Status DC Iron Sucrose/ Sodium Chloride (Venofer/Iv Sodium Chloride 0.9% 250ml) 270 ml @ 90 mls/hr DAILY IV ; Start 11/05/16 at 09:00; Stop 11/04/16 at 14:59; Status UNV Insulin Detemir (Levemir) 70 units QHS SQ Last administered on 11/04/16 21:51 ; Start 11/04/16 at 21:00; Stop 11/05/16 at 18:43; Status DC Albuterol/ Ipratropium (Duoneb) 3 ml RTQID NEB Last administered on 11/06/16 12:02; Start 11/04/16 at 16:00; Stop 11/06/16 at 15:29; Status DC Insulin Aspart (Novolog) 20 units 1X ONCE SQ Last administered on 11/04/16 17 :47; Start 11/04/16 at 17:30; Stop 11/04/16 at 17:31; Status DC Labetalol HCl (Normodyne) 10 mg PRN Q2HR PRN IVP HYPERTENSION, SEE COMMENTS Last administered on 11/05/16 16:04; Start 11/04/16 at 22:45 Prednisone (Prednisone) 40 mg DAILY PO Last administered on 11/07/16 09:05; Start 11/05/16 at 09:00 Insulin Aspart (Novolog) 20 units TIDAC SQ ; Start 11/05/16 at 11:30; Stop 11/05 at 11:57; Status DC Insulin Aspart (Novolog) 27 units TIDAC SQ Last administered on 11/05/16 17:31 ; Start 11/05/16 at 12:00; Stop 11/05/16 at 18:43; Status DC Magnesium Hydroxide (Milk Of Magnesia) 2,400 mg PRN DAILY PRN PO CONSTIPATION; Start 11/05/16 at 12:15 Polyethylene Glycol (miraLAX PACKET) 17 gm PRN DAILY PRN PO CONSTIPATION; Start 11/05/16 at 12:15 Docusate Sodium (Colace) 100 mg DAILY PO Last administered on 11/07/16 09:06; Start 11/05/16 at 12:30 Amoxicillin/ Clavulanate Potassium (Augmentin 875/ 125mg) 1 tab BID PO ; Start 11/05/16 at 21:00; Stop 11/05/16 at 21:00; Status DC Lactobacillus Acidophilus (Bacid, Ashley-Bid) 1 tab TIDWMEALS PO Last administered on 11/07/16 12:12; Start 11/05/16 at 17:00 Cefpodoxime Proxetil (Vantin) 200 mg BID PO Last administered on 11/07/16 09: 06; Start 11/05/16 at 21:00 Insulin Aspart (Novolog) 30 units TIDAC SQ Last administered on 11/07/16 12:33 ; Start 11/06/16 at 07:30 Insulin Detemir (Levemir) 80 units QHS SQ Last administered on 11/06/16 22:10 ; Start 11/05/16 at 21:00 Insulin Aspart 15 units 15 units 1X ONCE SQ Last administered on 11/05/16 23: 27; Start 11/05/16 at 23:15; Stop 11/05/16 at 23:16; Status DC Potassium Chloride 40 meq/ Sodium Chloride 1,020 ml @ 75 mls/hr [id number] IV Last administered on 11/07/16 01:34; Start 11/06/16 at 10:56; Stop 11/07/16 at 14:07; Status DC Magnesium Sulfate/ Dextrose (Magnesium Sulfate PREMIX 2GM) 50 ml @ 25 mls/hr PRN DAILY PRN IV for Mag < 1.7 on am labs; Start 11/06/16 at 11:00 Potassium Chloride (Klor-Con) 20 meq 1X ONCE PO Last administered on 15:16; Start 11/06/16 at 14:15; Stop 11/06/16 at 14:16; Status DC Albuterol/ Ipratropium (Duoneb) 3 ml Q4HRS W/A NEB Last administered on 11:36; Start 11/06/16 at 18:00 Furosemide (Lasix) 20 mg 1X ONCE IVP Last administered on 11/06/16 21:47; Start 11/06/16 at 19:15; Stop 11/06/16 at 19:16; Status DC Insulin Aspart (Novolog) 20 units 1X ONCE SQ Last administered on 11/06/16 22 :12; Start 11/06/16 at 22:00; Stop 11/06/16 at 22:01; Status DC Active Scripts Active Nystatin 15 Gm Cream..g. 1 Vianney TP BID 10 Days Ambien (Zolpidem Tartrate) 5 Mg Tablet 5 Mg PO PRN QHS PRN [place] 5-325 Tablet (Acetaminophen/Hydrocodone Bitart) 1 Each Tablet 1-2 Tab PO Q4-6HRS Reported Aspirin Ec (Aspirin) 81 Mg Tablet.dr 81 Mg PO DAILY Gabapentin 800 Mg Tablet 800 Mg PO TID Victoza 3-[place] (Liraglutide) 0.6 Mg/0.1 Ml Pen.injctr 1.8 Mg SQ DAILY Omeprazole 40 Mg Capsule.dr 40 Mg PO DAILY Cyclobenzaprine Hcl 10 Mg Tablet 10 Mg PO TID Iron (Ferrous Sulfate) 325 Mg Tablet 325 Mg PO DAILY Valium (Diazepam) 5 Mg Tablet 5 Mg PO DAILY Lexapro (Escitalopram Oxalate) 5 Mg Tablet 5 Mg PO DAILY Fexofenadine Hcl 180 Mg Tablet 180 Mg PO DAILY Albuterol Sulfate Conc Neb Soln (Albuterol Sulfate) 2.5 Mg/0.5 Ml Vial.neb 2.5 Mg NEB Q4HRS PRN Simvastatin 40 Mg Tablet 40 Mg PO HS Diltiazem 24HR Cd (Diltiazem Hcl) 120 Mg Cap.er.24h 120 Mg PO DAILY Symbicort 160-4.5 Mcg Inhaler (Budesonide/Formoterol Fumarate) 10.2 Gm Hfa.aer.ad 2 Puff IH BID Novolog (Insulin Aspart) 100 Unit/1 Ml Cartridge 27 Unit SQ TIDAC Lantus (Insulin Glargine,Hum.rec.anlog) 100 Unit/1 Ml Vial 70 Unit SQ HS Vitals/I & O Vital Sign - Last 24 Hours 11/06/16 11/06/16 11/06/16 11/06/16 16:47 19:00 19:16 20:00 Temp 99.1 99.1 Pulse 98 Resp 16 B/P 179/96 Pulse Ox 93 97 O2 Delivery Nasal Cannula Nasal Cannula Nasal Cannula Nasal Cannula O2 Flow Rate 3.0 3.0 3.0 3.0 11/06/16 11/06/16 11/06/16 11/07/16 22:54 23:00 23:07 00:07 Temp 97.5 98.5 97.5 98.5 Pulse 98 95 Resp B/P 180/96 169/95 Pulse Ox 96 96 96 96 O2 Delivery Nasal Cannula Nasal Cannula Nasal Cannula O2 Flow Rate 3.0 3.0 3.0 11/07/16 11/07/16 11/07/16 11/07/16 03:00 07:00 08:00 08:33 Temp 98.5 97.8 98.5 97.8 Pulse 81 98 Resp B/P 176/97 161/89 Pulse Ox 97 96 98 O2 Delivery Nasal Cannula Nasal Cannula Nasal Cannula Nasal Cannula O2 Flow Rate 3.0 3.0 3.0 3.0 11/07/16 11/07/16 11/07/16 09:05 11:00 11:36 Temp 97.4 97.4 Pulse 98 89 Resp 18 B/P 161/89 160/91 Pulse Ox 95 96 O2 Delivery Nasal Cannula Nasal Cannula O2 Flow Rate 3.0 3.0 Intake and Output 11/06/16 11/06/16 11/07/16 15:00 23:00 07:00 Intake Total 1010 ml 120 ml 1000 ml Output Total 900 ml 3050 ml Balance 1010 ml -780 ml -2050 ml SHAHEED ACOSTA MD Nov 07, 2016 15:34
[2016-11-07] MEDS ORDERED: POTASSIUM CHLORIDE 20 MEQ TABLET.ER. PO ONE (15:45)
[2016-11-07 19:00] VITALS: BP 171/87
[2016-11-07] MEDS: SIMVASTATIN 40 MG TABLET. PO SCH (20:33)
[2016-11-07] MEDS: INSULIN DETEMIR 300 UNITS/3 ML INSULN.PEN. SQ SCH (20:39)
[2016-11-07 23:00] VITALS: BP 174/89
[2016-11-08] VITALS (7 sets, daily range): BP systolic 151–183; BP diastolic 70–102
[2016-11-08] MEDS: PANTOPRAZOLE 40 MG TABLET. PO SCH (05:42)
[2016-11-08] MEDS: LABETALOL 20 MG/4 ML DISP.SYRIN. IVP PRN ×2 (05:43→23:21)
[2016-11-08] MEDS: HEPARIN PF for SUB-Q USE 5,000 UNIT/0.5 ML VIAL. SQ SCH ×3 (05:54→21:37)
[2016-11-08] MEDS: IPRATRPIUM/ALBUTEROL 0.5/2.5MG 3 ML NEBU. NEB SCH ×4 (06:00→18:04)
[2016-11-08 07:22] LABS: ALBUMIN 2.9 g/dL (3.4-5.0); CALCIUM 8.8 mg/dL (8.5-10.1); CREATININE 1.5 mg/dL (0.6-1.0); GFR 37.9; POTASSIUM 3.4 mmol/L (3.5-5.1)
--- NOTE | 2016-11-08 08:38 | PDOC ---
PULMONARY PROGRESS NOTES Subjective slowing improving Vitals Vital Signs Date Time Temp Pulse Resp B/P Pulse Ox O2 Delivery O2 Flow Rate FiO2 11/08/16 07:23 98 Nasal Cannula 3.0 11/08/16 06:07 97.5 96 16 179/87 97.5 ROS: No Nausea, No Chest Pain, No Abdominal Pain, No Increase Cough General: Alert, No acute distress HEENT: Other (nc ar peerl, throat nose clear) Lungs: Wheezing (faint post) Cardiovascular: S1, S2 Abdomen: Soft, Non-tender Neuro Exam: Alert Extremities: Other Skin: Warm, Dry Labs Laboratory Tests Test 11/06/16 10:22 11/06/16 16:34 11/06/16 21:11 11/07/16 04:05 Glucose (Fingerstick) 142mg/dL (70-99) 330mg/dL (70-99) 404mg/dL (70-99) Hemoglobin 8.8g/dL (12.0-15.5) Sodium Level 146mmol/L (136-145) Potassium Level 3.4mmol/L (3.5-5.1) Chloride Level 109mmol/L (98-107) Carbon Dioxide Level 25mmol/L (21-32) Anion Gap 12 (6-14) Blood Urea Nitrogen 18mg/dL (7-20) Creatinine 1.4mg/dL (0.6-1.0) Estimated GFR (Cockcroft-Gault) 41.0 Glucose Level 268mg/dL (70-99) Calcium Level 8.5mg/dL (8.5-10.1) Phosphorus Level 2.0mg/dL (2.6-4.7) Magnesium Level 1.8mg/dL (1.8-2.4) Albumin 2.9g/dL (3.4-5.0) Test 11/07/16 07:57 11/07/16 11:40 11/07/16 16:45 11/07/16 20:37 Glucose (Fingerstick) 113mg/dL (70-99) 151mg/dL (70-99) 291mg/dL (70-99) 326mg/dL (70-99) Test 11/08/16 06:30 11/08/16 07:56 Sodium Level 145mmol/L (136-145) Potassium Level 3.4mmol/L (3.5-5.1) Chloride Level 108mmol/L (98-107) Carbon Dioxide Level 25mmol/L (21-32) Anion Gap 12 (6-14) Blood Urea Nitrogen 17mg/dL (7-20) Creatinine 1.5mg/dL (0.6-1.0) Estimated GFR (Cockcroft-Gault) 37.9 Glucose Level 304mg/dL (70-99) Calcium Level 8.8mg/dL (8.5-10.1) Phosphorus Level 2.0mg/dL (2.6-4.7) Magnesium Level 1.7mg/dL (1.8-2.4) Albumin 2.9g/dL (3.4-5.0) Glucose (Fingerstick) 284mg/dL (70-99) Laboratory Tests Test 11/07/16 11:40 11/07/16 16:45 11/07/16 20:37 11/08/16 06:30 Glucose (Fingerstick) 151mg/dL (70-99) 291mg/dL (70-99) 326mg/dL (70-99) Sodium Level 145mmol/L (136-145) Potassium Level 3.4mmol/L (3.5-5.1) Chloride Level 108mmol/L (98-107) Carbon Dioxide Level 25mmol/L (21-32) Anion Gap 12 (6-14) Blood Urea Nitrogen 17mg/dL (7-20) Creatinine 1.5mg/dL (0.6-1.0) Estimated GFR (Cockcroft-Gault) 37.9 Glucose Level 304mg/dL (70-99) Calcium Level 8.8mg/dL (8.5-10.1) Phosphorus Level 2.0mg/dL (2.6-4.7) Magnesium Level 1.7mg/dL (1.8-2.4) Albumin 2.9g/dL (3.4-5.0) Test 11/08/16 07:56 Glucose (Fingerstick) 284mg/dL (70-99) Medications Active Scripts Medications Dose Route/Sig Days Date Category Aspirin Ec (Aspirin) 81 Mg Tablet.dr 81 Mg PO DAILY 10/30/16 Reported Nystatin 15 Gm Cream..g. 1 [place] TP BID 10 08/08/16 Rx Ambien (Zolpidem Tartrate) 5 Mg Tablet 5 Mg PO PRN QHS PRN 08/08/16 Rx [place] 5-325 Tablet (Acetaminophen/Hydrocodone Bitart) 1 Each Tablet 1-2 Tab PO Q4-6HRS 07/30/16 Rx Gabapentin 800 Mg Tablet 800 Mg PO TID 07/28/16 Reported Victoza 3-[place] (Liraglutide) 0.6 Mg/0.1 Ml Pen.injctr 1.8 Mg SQ DAILY 07/28/16 Reported Omeprazole 40 Mg Capsule.dr 40 Mg PO DAILY 07/28/16 Reported Cyclobenzaprine Hcl 10 Mg Tablet 10 Mg PO TID 07/28/16 Reported Iron (Ferrous Sulfate) 325 Mg Tablet 325 Mg PO DAILY 07/28/16 Reported Valium (Diazepam) 5 Mg Tablet 5 Mg PO DAILY 07/28/16 Reported Lexapro (Escitalopram Oxalate) 5 Mg Tablet 5 Mg PO DAILY 07/28/16 Reported Fexofenadine Hcl 180 Mg Tablet 180 Mg PO DAILY 07/28/16 Reported Albuterol Sulfate Conc Neb Soln (Albuterol Sulfate) 2.5 Mg/0.5 Ml Vial.neb 2.5 Mg NEB Q4HRS PRN 07/28/16 Reported Simvastatin 40 Mg Tablet 40 Mg PO HS 07/28/16 Reported Diltiazem 24HR Cd (Diltiazem Hcl) 120 Mg Cap.er.24h 120 Mg PO DAILY 07/28/16 Reported Symbicort 160-4.5 Mcg Inhaler (Budesonide/Formoterol Fumarate) 10.2 Gm Hfa.aer.ad 2 Puff IH BID 07/28/16 Reported Novolog (Insulin Aspart) 100 Unit/1 Ml Cartridge 27 Unit SQ TIDAC 10/02/14 Reported Lantus (Insulin Glargine,Hum.rec.anlog) 100 Unit/1 Ml Vial 70 Unit SQ HS 10/02/[address] reviewed, 1. Mild bibasilar atelectasis. 2. Hepatomegaly with hepatic steatosis. 3. Tiny gas bubbles related to the anterior abdominal wall at the mid pelvic level presumably on a postsurgical basis. There is adjacent streaky inflammation in the subcutaneous fat and within the pelvis, without evidence of a discrete abscess. Impression . 1. Pneumonia Clinically improved now acute CHF 2. Acute exacerbation of asthma. 3. Chronic atrial fibrillation. 4. Sepsis POA with hypotension,resolved 5. Met and toxic encephalopathy, resolved 6. Suspect ABI 7. CDK Plan . DIURESE PRN Antibx PER ID NEBS AVOID SEDATION STEROIDS DVT and GI proph PSG OUT PT REPEAT CXR TODAY SHANE SULLIVAN MD Nov 08, 2016 08:38
[2016-11-08] MEDS: DOCUSATE SODIUM 100 MG CAPSULE PO SCH (09:00)
[2016-11-08] MEDS: DILTIAZEM HCL 120 MG CAP.ER.24H PO SCH (09:04)
[2016-11-08] MEDS: PREDNISONE 20 MG TABLET PO SCH (09:08)
[2016-11-08] MEDS: GUAIFENESIN ER 600 MG TABLET.ER PO SCH ×2 (09:08→21:30)
[2016-11-08] MEDS: CEFPODOXIME PROXETIL 200 MG TABLET PO SCH (09:08)
[2016-11-08] MEDS: GABAPENTIN 400 MG CAPSULE. PO SCH ×3 (09:09→21:31)
[2016-11-08] MEDS: CETIRIZINE HCL 10 MG TABLET PO SCH (09:09)
[2016-11-08] MEDS: FERROUS SULFATE 325 MG TABLET PO SCH (09:09)
[2016-11-08] MEDS: POTASSIUM CHLORIDE 20 MEQ TABLET.ER. PO SCH (09:09)
[2016-11-08] MEDS: ESCITALOPRAM 10 MG TABLET. PO SCH (09:10)
[2016-11-08] MEDS: NYSTATIN 100,000 UNIT/GM TOPICAL CREAM 15GM TUBE. TP SCH ×2 (09:12→21:31)
--- NOTE | 2016-11-08 09:13 | RAD ---
EXAM: Chest one view. HISTORY: Congestive heart failure. COMPARISON: 11/05/2016. FINDINGS: A frontal view of the chest is obtained. Interstitial and airspace opacities bilaterally have improved but not completely resolved. There is no pneumothorax or pleural effusion. The heart is mildly enlarged. IMPRESSION: 1. Pulmonary edema has improved not completely resolved. 2. Mild cardiomegaly.
[2016-11-08] MEDS: LACTOBACILLUS ACIDOPH & BULGAR 1 TABLET. PO SCH ×3 (09:14→17:47)
[2016-11-08] MEDS: INSULIN ASPART 300 UNITS/3 ML INSULN.PEN SQ SCH ×6 (09:14→17:53)
--- NOTE | 2016-11-08 11:39 | PDOC ---
Infectious Disease Note Subjective Subjective About the same Less cough and SOA with activity + Increased Urine output Slept better A couple loose stools ROS ROS GEN: Denies fevers, chills, sweats HEENT: Denies blurred vision, sore throat CV: Denies chest pain RESP: Denies shortness of air, cough GI: Denies n/v/d NEURO: Denies confusion, dizziness MSK: Denies weakness, joint pain/swelling Vital Sign Vital Signs Vital Signs Date Time Temp Pulse Resp B/P Pulse Ox O2 Delivery O2 Flow Rate FiO2 11/08/16 11:21 Nasal Cannula 3.0 11/08/16 09:21 99 151/70 11/08/16 07:23 98 11/08/16 07:00 99.9 20 99.9 Physical Exam PHYSICAL EXAM GENERAL: NAD, Alert - in bed HEENT: PERRL, OC/OP- no thrush NECK: Supple, no JVD, no LN LUNGS: less rhonchi HEART: S1S2, no gallop, no murmur ABD: Soft, NT, no organomegaly, no rebound EXT: No edema, no cyanosis [employer]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 [employer] BED: Alert, oriented x 3, no focal neurologic deficit SKIN: No rash IV: ok Labs Lab Laboratory Tests Test 11/07/16 11:40 11/07/16 16:45 11/07/16 20:37 11/08/16 06:30 Glucose (Fingerstick) 151mg/dL (70-99) 291mg/dL (70-99) 326mg/dL (70-99) Sodium Level 145mmol/L (136-145) Potassium Level 3.4mmol/L (3.5-5.1) Chloride Level 108mmol/L (98-107) Carbon Dioxide Level 25mmol/L (21-32) Anion Gap 12 (6-14) Blood Urea Nitrogen 17mg/dL (7-20) Creatinine 1.5mg/dL (0.6-1.0) Estimated GFR (Cockcroft-Gault) 37.9 Glucose Level 304mg/dL (70-99) Calcium Level 8.8mg/dL (8.5-10.1) Phosphorus Level 2.0mg/dL (2.6-4.7) Magnesium Level 1.7mg/dL (1.8-2.4) Albumin 2.9g/dL (3.4-5.0) Test 11/08/16 07:56 Glucose (Fingerstick) 284mg/dL (70-99) Objective Assessment Fever - ? viral given leukopenia and Resp symptoms - better Leukopenia. improved - on steroids Resp failure - ? Fluid BIGG Hypotension Hypoxia - Asthma Change in MS ? sec to meds Recent hysterectomy Recent UTI Plan Plan of Care Discont cefpodox Repeat Flu Blood cults times 2 Vanc/Zosyn Cont Probiotics F/u labs today with Procalcitonin Steroids supportive care LEODAN SOTELO MD Nov 08, 2016 11:39
[2016-11-08] MEDS ORDERED: VANCOMYCIN PER PHARMACY MC PRN (11:45)
[2016-11-08 11:58] LABS: BASO % 1 % (0-3); EOS % 0 % (0-3); HEMATOCRIT 30.5 % (36.0-47.0); HEMOGLOBIN 9.3 g/dL (12.0-15.5); LYMPH # 1.2 x10^3/uL (1.0-4.8); LYMPH % 12 % (24-48); MEAN CORPUSCULAR HEMOGLOBIN 25 pg (25-35); MEAN CORPUSCULAR HGB CONC 30 g/dL (31-37); MEAN CORPUSCULAR VOLUME 81 fL (79-100); MONO % 7 % (0-9); NEUT % 80 % (31-73); PLATELET COUNT 375 x10^3/uL (140-400); RED BLOOD COUNT 3.77 x10^6/uL (3.50-5.40); RED CELL DISTRIBUTION WIDTH 19.8 % (11.5-14.5)
[2016-11-08] MEDS: PIPERACILLIN/TAZOBACTAM 3.375 GM in IV NORMAL SALINE 50ML 50 ML IV SCH ×2 (12:00→18:24)
[2016-11-08] MEDS ORDERED: MAGNESIUM SULFATE 1GM 100 ML IV ONE (12:15)
--- NOTE | 2016-11-08 12:15 | PDOC ---
PROGRESS NOTES Chief Complaint Chief Complaint Acute hypoxic respiratory failure ASSESSMENT AND PLAN: 1. Bronchitis: on zosyn 2. Asthma exacerbation: shifted to PO pred sunday 3. Afib: currently rate controlled. cont cardizem 4. Sepsis: hypotension resolved 5. Encephalopathy: thought to be metabolic and toxic (on benzos and opioids at home). remains very lethargic 6. BIGG: vasomotor. creat improving. on 150cc/hr IVF 7. Hypernatremia: improving. 8. DM: poorly controlled with current steroids. obesity, BMI 36 9. Anemia: + recent YESY. s/p PRBC x1. 10. Depression, anxiety d/o : stable mood. cont home lexapro, xanax 11. Prophylaxis: heparin, PPI History of Present Illness History of Present Illness weakness and dyspnea could not complete 6 min walk yesterday fever again today suspect ABI, BS monitoring on po prednisone PT/OT - encourage ambulation Chest physiotherapy seems to be helping IS by RT Vitals Vitals Vital Signs Date Time Temp Pulse Resp B/P Pulse Ox O2 Delivery O2 Flow Rate FiO2 11/08/16 11:21 Nasal Cannula 3.0 11/08/16 11:00 100.9 97 20 182/87 95 100.9 Physical Exam General: Cooperative, No acute distress, Other (lethargic, answeres appropriately) Heart: Regular rate, No murmurs Lungs: Wheezing (faint post) Abdomen: Normal bowel sounds, Soft, No tenderness Extremities: No clubbing, No cyanosis, No edema Skin: No rashes Labs LABS Laboratory Tests Test 11/07/16 16:45 11/07/16 20:37 11/08/16 06:30 11/08/16 07:56 Glucose (Fingerstick) 291mg/dL (70-99) 326mg/dL (70-99) 284mg/dL (70-99) White Blood Count 10.0x10^3/uL (4.0-11.0) Red Blood Count 3.77x10^6/uL (3.50-5.40) Hemoglobin 9.3g/dL (12.0-15.5) Hematocrit 30.5% (36.0-47.0) Mean Corpuscular Volume 81fL (79-100) Mean Corpuscular Hemoglobin 25pg (25-35) Mean Corpuscular Hemoglobin Concent 30g/dL (31-37) Red Cell Distribution Width 19.8% (11.5-14.5) Platelet Count 375x10^3/uL (140-400) Neutrophils (%) (Auto) 80% (31-73) Lymphocytes (%) (Auto) 12% (24-48) Monocytes (%) (Auto) 7% (0-9) Eosinophils (%) (Auto) 0% (0-3) Basophils (%) (Auto) 1% (0-3) Neutrophils # (Auto) 8.1x10^3uL (1.8-7.7) Lymphocytes # (Auto) 1.2x10^3/uL (1.0-4.8) Monocytes # (Auto) 0.7x10^3/uL (0.0-1.1) Eosinophils # (Auto) 0.0x10^3/uL (0.0-0.7) Basophils # (Auto) 0.0x10^3/uL (0.0-0.2) Sodium Level 145mmol/L (136-145) Potassium Level 3.4mmol/L (3.5-5.1) Chloride Level 108mmol/L (98-107) Carbon Dioxide Level 25mmol/L (21-32) Anion Gap 12 (6-14) Blood Urea Nitrogen 17mg/dL (7-20) Creatinine 1.5mg/dL (0.6-1.0) Estimated GFR (Cockcroft-Gault) 37.9 Glucose Level 304mg/dL (70-99) Calcium Level 8.8mg/dL (8.5-10.1) Phosphorus Level 2.0mg/dL (2.6-4.7) Magnesium Level 1.7mg/dL (1.8-2.4) Albumin 2.9g/dL (3.4-5.0) Assessment and Plan Assessmemt and Plan ID following repeating flu swab Problems Medical Problems: (1) Healthcare-associated pneumonia Status: Acute (2) Hyperglycemia Status: Acute Problems: Comment Review of Relevant I have reviewed the following items emery (where applicable) has been applied. Labs Laboratory Tests Test 11/06/16 16:34 11/06/16 21:11 11/07/16 04:05 11/07/16 07:57 Glucose (Fingerstick) 330mg/dL (70-99) 404mg/dL (70-99) 113mg/dL (70-99) Hemoglobin 8.8g/dL (12.0-15.5) Sodium Level 146mmol/L (136-145) Potassium Level 3.4mmol/L (3.5-5.1) Chloride Level 109mmol/L (98-107) Carbon Dioxide Level 25mmol/L (21-32) Anion Gap 12 (6-14) Blood Urea Nitrogen 18mg/dL (7-20) Creatinine 1.4mg/dL (0.6-1.0) Estimated GFR (Cockcroft-Gault) 41.0 Glucose Level 268mg/dL (70-99) Calcium Level 8.5mg/dL (8.5-10.1) Phosphorus Level 2.0mg/dL (2.6-4.7) Magnesium Level 1.8mg/dL (1.8-2.4) Albumin 2.9g/dL (3.4-5.0) Test 11/07/16 11:40 11/07/16 16:45 11/07/16 20:37 11/08/16 06:30 Glucose (Fingerstick) 151mg/dL (70-99) 291mg/dL (70-99) 326mg/dL (70-99) White Blood Count 10.0x10^3/uL (4.0-11.0) Red Blood Count 3.77x10^6/uL (3.50-5.40) Hemoglobin 9.3g/dL (12.0-15.5) Hematocrit 30.5% (36.0-47.0) Mean Corpuscular Volume 81fL (79-100) Mean Corpuscular Hemoglobin 25pg (25-35) Mean Corpuscular Hemoglobin Concent 30g/dL (31-37) Red Cell Distribution Width 19.8% (11.5-14.5) Platelet Count 375x10^3/uL (140-400) Neutrophils (%) (Auto) 80% (31-73) Lymphocytes (%) (Auto) 12% (24-48) Monocytes (%) (Auto) 7% (0-9) Eosinophils (%) (Auto) 0% (0-3) Basophils (%) (Auto) 1% (0-3) Neutrophils # (Auto) 8.1x10^3uL (1.8-7.7) Lymphocytes # (Auto) 1.2x10^3/uL (1.0-4.8) Monocytes # (Auto) 0.7x10^3/uL (0.0-1.1) Eosinophils # (Auto) 0.0x10^3/uL (0.0-0.7) Basophils # (Auto) 0.0x10^3/uL (0.0-0.2) Sodium Level 145mmol/L (136-145) Potassium Level 3.4mmol/L (3.5-5.1) Chloride Level 108mmol/L (98-107) Carbon Dioxide Level 25mmol/L (21-32) Anion Gap 12 (6-14) Blood Urea Nitrogen 17mg/dL (7-20) Creatinine 1.5mg/dL (0.6-1.0) Estimated GFR (Cockcroft-Gault) 37.9 Glucose Level 304mg/dL (70-99) Calcium Level 8.8mg/dL (8.5-10.1) Phosphorus Level 2.0mg/dL (2.6-4.7) Magnesium Level 1.7mg/dL (1.8-2.4) Albumin 2.9g/dL (3.4-5.0) Test 11/08/16 07:56 Glucose (Fingerstick) 284mg/dL (70-99) Laboratory Tests Test 11/07/16 16:45 11/07/16 20:37 11/08/16 06:30 11/08/16 07:56 Glucose (Fingerstick) 291mg/dL (70-99) 326mg/dL (70-99) 284mg/dL (70-99) White Blood Count 10.0x10^3/uL (4.0-11.0) Red Blood Count 3.77x10^6/uL (3.50-5.40) Hemoglobin 9.3g/dL (12.0-15.5) Hematocrit 30.5% (36.0-47.0) Mean Corpuscular Volume 81fL (79-100) Mean Corpuscular Hemoglobin 25pg (25-35) Mean Corpuscular Hemoglobin Concent 30g/dL (31-37) Red Cell Distribution Width 19.8% (11.5-14.5) Platelet Count 375x10^3/uL (140-400) Neutrophils (%) (Auto) 80% (31-73) Lymphocytes (%) (Auto) 12% (24-48) Monocytes (%) (Auto) 7% (0-9) Eosinophils (%) (Auto) 0% (0-3) Basophils (%) (Auto) 1% (0-3) Neutrophils # (Auto) 8.1x10^3uL (1.8-7.7) Lymphocytes # (Auto) 1.2x10^3/uL (1.0-4.8) Monocytes # (Auto) 0.7x10^3/uL (0.0-1.1) Eosinophils # (Auto) 0.0x10^3/uL (0.0-0.7) Basophils # (Auto) 0.0x10^3/uL (0.0-0.2) Sodium Level 145mmol/L (136-145) Potassium Level 3.4mmol/L (3.5-5.1) Chloride Level 108mmol/L (98-107) Carbon Dioxide Level 25mmol/L (21-32) Anion Gap 12 (6-14) Blood Urea Nitrogen 17mg/dL (7-20) Creatinine 1.5mg/dL (0.6-1.0) Estimated GFR (Cockcroft-Gault) 37.9 Glucose Level 304mg/dL (70-99) Calcium Level 8.8mg/dL (8.5-10.1) Phosphorus Level 2.0mg/dL (2.6-4.7) Magnesium Level 1.7mg/dL (1.8-2.4) Albumin 2.9g/dL (3.4-5.0) Microbiology 10/30/16 Blood Culture - Final, Complete NO GROWTH AFTER 5 DAYS 11/06/16 Urine Culture - Final, Complete 11/06/16 Urine Culture Result 1 (ERWIN) - Final, Complete Medications Current Medications Sodium Chloride 10 ml 10 ml QSHIFT PRN IV AFTER MEDS AND BLOOD DRAWS; Start 09/02 at 23:30 Sodium Chloride (Iv Sodium Chloride 0.9% 500ml Bag) 500 ml @ 500 mls/hr 1X ONCE IV Last administered on 10/29/16 23:43; Start 10/29/16 at 23:45; Stop at 00:44; Status DC Albuterol/ Ipratropium 3 ml 3 ml 1X ONCE NEB Last administered on 10/30/16 00 :31; Start 10/30/16 at 00:15; Stop 10/30/16 at 00:57; Status DC Piperacillin Sod/ Tazobactam Sod 3.375 gm/Sodium Chloride 50 ml @ 100 mls/hr 1X ONCE IV Last administered on 10/30/16 02:38; Start 10/30/16 at 01:00; Stop 10/30/16 at 01:29; Status DC Ciprofloxacin Lactate (Cipro 400mg Premix) 200 ml @ 200 mls/hr 1X ONCE IV Last administered on 10/30/16 03:35; Start 10/30/16 at 01:30; Stop 10/30/16 at 02:29; Status DC Vancomycin HCl (Vanco Per Pharmacy) 1 each PRN DAILY PRN MC SEE COMMENTS Last administered on 11/01/16 14:32; Start 10/30/16 at 00:30; Stop 11/02/16 at 07:27 ; Status DC Albuterol/ Ipratropium (Duoneb) 3 ml RTQID NEB Last administered on 10/31/16 07:06; Start 10/30/16 at 08:00; Stop 10/31/16 at 07:59; Status DC Piperacillin Sod/ Tazobactam Sod 1 each 1 each PRN DAILY PRN MC SEE COMMENTS; Start 10/30/16 at 00:30; Stop 11/01/16 at 13:16; Status DC Ciprofloxacin Lactate (Cipro 400mg Premix) 200 ml @ 200 mls/hr Q12HR IV Last administered on 11/01/16 21:38; Start 10/30/16 at 21:00; Stop 11/02/16 at 07:27 ; Status DC Famotidine (Pepcid) 20 mg BID PO Last administered on 10/30/16 21:33; Start at 02:00; Stop 11/01/16 at 09:19; Status DC Insulin Human Regular 10 unit 10 unit 1X ONCE IV Last administered on 02:33; Start 10/30/16 at 01:00; Stop 10/30/16 at 01:01; Status DC Vancomycin HCl 2 gm/Sodium Chloride 500 ml @ 250 mls/hr 1X ONCE IV Last administered on 10/30/16 04:56; Start 10/30/16 at 05:00; Stop 10/30/16 at 06:59 ; Status DC Piperacillin Sod/ Tazobactam Sod/ Sodium Chloride (Zosyn/Iv Sodium Chloride 0.9 % 100ml) 100 ml @ 200 mls/hr Q6HRS IV Last administered on 11/05/16 11:26; Start 10/30/16 at 08:00; Stop 11/05/16 at 14:37; Status DC Promethazine HCl/ Codeine (Phenergan With Codeine) 5 ml PRN Q4HRS PRN PO COUGH Last administered on 11/04/16 21:53; Start 10/30/16 at 10:15 Acetaminophen/ Hydrocodone Bitart 1 tab 1 tab PRN Q4HRS PRN PO PAIN Last administered on 10/30/16 10:30; Start 10/30/16 at 10:15; Stop 10/30/16 at 11:31 ; Status DC Vancomycin HCl/ Sodium Chloride (Iv Sodium Chloride 0.9% 500ml Bag) 500 ml @ 250 mls/hr Q12H IV Last administered on 11/02/16 04:42; Start 10/30/16 at 17: 00; Stop 11/02/16 at 07:27; Status DC Vancomycin HCl 1 each 1X ONCE MC Last administered on 10/31/16 16:30; Start 10/31/16 at 16:30; Stop 10/31/16 at 16:31; Status DC Cyclobenzaprine HCl (Flexeril) 10 mg TID PO Last administered on 10/30/16 21: 33; Start 10/30/16 at 14:00; Stop 11/01/16 at 10:21; Status DC Diazepam (Valium) 5 mg DAILY PO Last administered on 11/01/16 09:00; Start at 12:30; Stop 11/01/16 at 10:21; Status DC Diltiazem HCl (Cardizem 24hr Cd) 120 mg DAILY PO Last administered on 09:04; Start 10/30/16 at 12:30 Escitalopram Oxalate (Lexapro) 5 mg DAILY PO Last administered on 11/03/16 08: 03; Start 10/30/16 at 12:30; Stop 11/03/16 at 18:48; Status DC Ferrous Sulfate (Feosol) 325 mg DAILY PO Last administered on 11/08/16 09:09; Start 10/30/16 at 12:30 Acetaminophen/ Hydrocodone Bitart (Lortab 5/325) 1 tab PRN QID PRN PO MODERATE PAIN Last administered on 11/06/16 06:00; Start 10/30/16 at 11:30 Nystatin (Mycostatin) 1 vianney BID TP Last administered on 11/08/16 09:12; Start 10/30/16 at 12:30 Simvastatin (Zocor) 40 mg HS PO Last administered on 11/07/16 20:33; Start at 21:00 Zolpidem Tartrate (Ambien) 5 mg PRN QHS PRN PO INSOMNIA Last administered on 20:44; Start 10/30/16 at 11:30; Stop 11/04/16 at 12:44; Status DC Albuterol Sulfate (Ventolin Neb Soln) 2.5 mg PRN Q4HRS PRN NEB SHORTNESS OF BREATH Last administered on 11/06/16 16:45; Start 10/30/16 at 11:45 Budesonide (Pulmicort) 0.5 mg RTBID NEB Last administered on 11/06/16 08:09; Start 10/30/16 at 20:00; Stop 11/06/16 at 19:05; Status DC Non-Formulary Medication 500 mg QID PO ; Start 10/30/16 at 13:00; Stop 10/30/16 at 13:00; Status DC Cetirizine HCl (Zyrtec) 10 mg DAILY PO Last administered on 11/08/16 09:09; Start 10/30/16 at 12:30 Gabapentin (Neurontin) 800 mg TID PO Last administered on 11/08/16 09:09; Start 10/30/16 at 14:00 Insulin Aspart (Novolog) 27 units TIDAC SQ Last administered on 10/31/16 13:49 ; Start 10/30/16 at 12:00; Stop 11/01/16 at 10:21; Status DC Insulin Detemir (Levemir) 70 units QHS SQ Last administered on 10/31/16 21:10 ; Start 10/30/16 at 21:00; Stop 11/01/16 at 13:13; Status DC Non-Formulary Medication 1.8 mg DAILY SQ ; Start 10/31/16 at 09:00; Stop at 07:09; Status DC Pantoprazole Sodium (Protonix) 40 mg DAILYAC PO Last administered on 11/08/16 05:42; Start 10/30/16 at 12:30 Aspirin (Ecotrin) 81 mg DAILYWBKFT PO ; Start 10/30/16 at 12:30; Stop 10/31/16 at 10:40; Status DC Acetaminophen/ Hydrocodone Bitart (Lortab 5/325) 2 tab PRN QID PRN PO SEVERE PAIN Last administered on 11/06/16 23:07; Start 10/30/16 at 11:45 Lisinopril (Prinivil) 10 mg DAILY PO Last administered on 10/30/16 17:13; Start 10/30/16 at 17:00; Stop 10/31/16 at 10:37; Status DC Throat Lozenges 1 abena 1 abena PRN Q2HRS PRN PO SORE THROAT Last administered on 13:01; Start 10/30/16 at 18:15 Sodium Chloride (Iv Sodium Chloride 0.9% 500ml Bag) 500 ml @ 500 mls/hr 1X ONCE IV Last administered on 10/31/16 08:00; Start 10/31/16 at 08:30; Stop at 09:29; Status DC Iohexol (Omnipaque 240 Mg/ml) 30 ml 1X ONCE PO Last administered on 10/31/16 09:00; Start 10/31/16 at 09:00; Stop 10/31/16 at 09:03; Status DC Info 1 each 1 each PRN DAILY PRN MC SEE COMMENTS; Start 10/31/16 at 09:15; Stop 11/02/16 at 09:14; Status DC Sodium Chloride (Iv Sodium Chloride 0.45%) 1,000 ml @ 125 mls/hr 1X ONCE IV Last administered on 10/31/16 11:24; Start 10/31/16 at 11:00; Stop 10/31/16 at 19:00; Status DC Ondansetron HCl (Zofran) 4 mg STK-MED ONCE .ROUTE ; Start 11/01/16 at 09:25; Stop 11/01/16 at 09:26; Status DC Insulin Aspart (Novolog) 20 units TIDAC SQ Last administered on 11/02/16 13:03 ; Start 11/01/16 at 11:30; Stop 11/02/16 at 14:43; Status DC Alprazolam 0.25 mg 0.25 mg PRN Q8HRS PRN PO ANXIETY / AGITATION Last administered on 11/03/16 20:44; Start 11/01/16 at 10:30 Sodium Chloride (Iv Sodium Chloride 0.45%) 1,000 ml @ 75 mls/hr 1X ONCE IV Last administered on 11/01/16 13:57; Start 11/01/16 at 10:30; Stop 11/01/16 at 23:49; Status DC Insulin Detemir (Levemir) 60 units QHS SQ ; Start 11/01/16 at 21:00; Stop at 14:43; Status DC Piperacillin Sod/ Tazobactam Sod (Zosyn Per Pharmacy) 1 each PRN DAILY PRN MC SEE COMMENTS; Start 11/01/16 at 13:15; Stop 11/01/16 at 13:16; Status DC Guaifenesin (Mucinex) 600 mg BID PO Last administered on 11/08/16 09:08; Start 11/01/16 at 14:00 Guaifenesin (Robitussin) 200 mg PRN Q4HRS PRN PO COUGH Last administered on 13:00; Start 11/01/16 at 13:15 Ondansetron HCl (Zofran) 4 mg STK-MED ONCE .ROUTE ; Start 11/01/16 at 09:25; Stop 11/02/16 at 08:23; Status DC Insulin Aspart (Novolog) 15 units TIDAC SQ Last administered on 11/03/16 17:16 ; Start 11/02/16 at 16:30; Stop 11/03/16 at 20:43; Status DC Insulin Detemir 40 units 40 units QHS SQ Last administered on 11/03/16 20:50; Start 11/02/16 at 21:00; Stop 11/04/16 at 06:31; Status DC Sodium Chloride 1,000 ml @ 75 mls/hr [id number] IV Last administered on 04:00; Start 11/02/16 at 14:45; Stop 11/06/16 at 10:58; Status DC Iron Sucrose/ Sodium Chloride (Venofer/Iv Sodium Chloride 0.9% 250ml) 270 ml @ 90 mls/hr DAILY IV Last administered on 11/04/16 11:04; Start 11/02/16 at 15: 00; Stop 11/04/16 at 12:39; Status DC Methylprednisolone Sodium Succinate (Solu-Medrol 125mg Vial) 60 mg Q12HR IV Last administered on 11/04/16 21:44; Start 11/03/16 at 10:00; Stop 11/05/16 at 08:09; Status DC Escitalopram Oxalate (Lexapro) 5 mg DAILY PO Last administered on 11/08/16 09: 10; Start 11/04/16 at 09:00 Insulin Aspart (Novolog) 0-9 UNITS TIDWMEALS SQ Last administered on 11/08/16 09:14; Start 11/04/16 at 08:00 Dextrose 12.5 gm PRN Q15MIN PRN IV SEE COMMENTS; Start 11/03/16 at 20:45 Insulin Aspart (Novolog) 10 units 1X ONCE SQ Last administered on 11/03/16 21 :42; Start 11/03/16 at 21:30; Stop 11/03/16 at 21:31; Status DC Insulin Aspart (Novolog) 10 units 1X ONCE SQ Last administered on 11/03/16 23 :35; Start 11/03/16 at 23:45; Stop 11/03/16 at 23:46; Status DC Insulin Detemir (Levemir) 50 units QHS SQ ; Start 11/04/16 at 21:00; Stop at 21:00; Status DC Heparin Sodium (Porcine) 5,000 unit Q8HRS SQ Last administered on 11/08/16 05: 54; Start 11/04/16 at 14:00 Ferrous Sulfate 325 mg 325 mg QHS PO ; Start 11/04/16 at 21:00; Stop 11/04/16 at 21:00; Status DC Iron Sucrose/ Sodium Chloride (Venofer/Iv Sodium Chloride 0.9% 250ml) 270 ml @ 90 mls/hr DAILY IV ; Start 11/05/16 at 09:00; Stop 11/04/16 at 14:59; Status UNV Insulin Detemir (Levemir) 70 units QHS SQ Last administered on 11/04/16 21:51 ; Start 11/04/16 at 21:00; Stop 11/05/16 at 18:43; Status DC Albuterol/ Ipratropium (Duoneb) 3 ml RTQID NEB Last administered on 11/06/16 12:02; Start 11/04/16 at 16:00; Stop 11/06/16 at 15:29; Status DC Insulin Aspart (Novolog) 20 units 1X ONCE SQ Last administered on 11/04/16 17 :47; Start 11/04/16 at 17:30; Stop 11/04/16 at 17:31; Status DC Labetalol HCl (Normodyne) 10 mg PRN Q2HR PRN IVP HYPERTENSION, SEE COMMENTS Last administered on 11/08/16 05:43; Start 11/04/16 at 22:45 Prednisone (Prednisone) 40 mg DAILY PO Last administered on 11/08/16 09:08; Start 11/05/16 at 09:00 Insulin Aspart (Novolog) 20 units TIDAC SQ ; Start 11/05/16 at 11:30; Stop 11/05 at 11:57; Status DC Insulin Aspart (Novolog) 27 units TIDAC SQ Last administered on 11/05/16 17:31 ; Start 11/05/16 at 12:00; Stop 11/05/16 at 18:43; Status DC Magnesium Hydroxide (Milk Of Magnesia) 2,400 mg PRN DAILY PRN PO CONSTIPATION; Start 11/05/16 at 12:15 Polyethylene Glycol (miraLAX PACKET) 17 gm PRN DAILY PRN PO CONSTIPATION; Start 11/05/16 at 12:15 Docusate Sodium (Colace) 100 mg DAILY PO Last administered on 11/07/16 09:06; Start 11/05/16 at 12:30 Amoxicillin/ Clavulanate Potassium (Augmentin 875/ 125mg) 1 tab BID PO ; Start 11/05/16 at 21:00; Stop 11/05/16 at 21:00; Status DC Lactobacillus Acidophilus (Bacid, Ashley-Bid) 1 tab TIDWMEALS PO Last administered on 11/08/16 09:14; Start 11/05/16 at 17:00 Cefpodoxime Proxetil (Vantin) 200 mg BID PO Last administered on 11/08/16 09: 08; Start 11/05/16 at 21:00; Stop 11/08/16 at 11:37; Status DC Insulin Aspart (Novolog) 30 units TIDAC SQ Last administered on 11/08/16 09:14 ; Start 11/06/16 at 07:30 Insulin Detemir (Levemir) 80 units QHS SQ Last administered on 11/07/16 20:39 ; Start 11/05/16 at 21:00 Insulin Aspart 15 units 15 units 1X ONCE SQ Last administered on 11/05/16 23: 27; Start 11/05/16 at 23:15; Stop 11/05/16 at 23:16; Status DC Potassium Chloride 40 meq/ Sodium Chloride 1,020 ml @ 75 mls/hr [id number] IV Last administered on 11/07/16 01:34; Start 11/06/16 at 10:56; Stop 11/07/16 at 14:07; Status DC Magnesium Sulfate/ Dextrose (Magnesium Sulfate PREMIX 2GM) 50 ml @ 25 mls/hr PRN DAILY PRN IV for Mag < 1.7 on am labs; Start 11/06/16 at 11:00 Potassium Chloride (Klor-Con) 20 meq 1X ONCE PO Last administered on 15:16; Start 11/06/16 at 14:15; Stop 11/06/16 at 14:16; Status DC Albuterol/ Ipratropium (Duoneb) 3 ml Q4HRS W/A NEB Last administered on 06:00; Start 11/06/16 at 18:00 Furosemide (Lasix) 20 mg 1X ONCE IVP Last administered on 11/06/16 21:47; Start 2/20/17 at 19:15; Stop 11/06/16 at 19:16; Status DC Insulin Aspart (Novolog) 20 units 1X ONCE SQ Last administered on 11/06/16 22 :12; Start 11/06/16 at 22:00; Stop 11/06/16 at 22:01; Status DC Potassium Chloride (Klor-Con) 20 meq DAILYWBKFT PO Last administered on 09:09; Start 11/08/16 at 08:00 Potassium Chloride (Klor-Con) 20 meq 1X ONCE PO Last administered on 17:09; Start 11/07/16 at 15:45; Stop 11/07/16 at 15:46; Status DC Vancomycin HCl 1 each 1 each PRN DAILY PRN MC SEE COMMENTS Last administered on 11/08/16 11:51; Start 11/08/16 at 11:45 Piperacillin Sod/ Tazobactam Sod 3.375 gm/Sodium Chloride 50 ml @ 100 mls/hr Q6HRS IV ; Start 11/08/16 at 12:00 Vancomycin HCl 2 gm/Sodium Chloride 500 ml @ 250 mls/hr 1X ONCE IV ; Start at 13:00; Stop 11/08/16 at 14:59 Vancomycin HCl/ Sodium Chloride (Iv Sodium Chloride 0.9% 250ml) 250 ml @ 166.667 mls/hr Q12H ONCE IV ; Start 11/09/16 at 01:00; Stop 11/09/16 at 02:29 Vancomycin HCl 1 each 1X ONCE MC ; Start 11/10/16 at 00:30; Stop 11/10/16 at 00 :31 Active Scripts Active Nystatin 15 Gm Cream..g. 1 Vianney TP BID 10 Days Ambien (Zolpidem Tartrate) 5 Mg Tablet 5 Mg PO PRN QHS PRN [place] 5-325 Tablet (Acetaminophen/Hydrocodone Bitart) 1 Each Tablet 1-2 Tab PO Q4-6HRS Reported Aspirin Ec (Aspirin) 81 Mg Tablet. 81 Mg PO DAILY Gabapentin 800 Mg Tablet 800 Mg PO TID Victoza 3-[place] (Liraglutide) 0.6 Mg/0.1 Ml Pen.injctr 1.8 Mg SQ DAILY Omeprazole 40 Mg Capsule.dr 40 Mg PO DAILY Cyclobenzaprine Hcl 10 Mg Tablet 10 Mg PO TID Iron (Ferrous Sulfate) 325 Mg Tablet 325 Mg PO DAILY Valium (Diazepam) 5 Mg Tablet 5 Mg PO DAILY Lexapro (Escitalopram Oxalate) 5 Mg Tablet 5 Mg PO DAILY Fexofenadine Hcl 180 Mg Tablet 180 Mg PO DAILY Albuterol Sulfate Conc Neb Soln (Albuterol Sulfate) 2.5 Mg/0.5 Ml Vial.neb 2.5 Mg NEB Q4HRS PRN Simvastatin 40 Mg Tablet 40 Mg PO HS Diltiazem 24HR Cd (Diltiazem Hcl) 120 Mg Cap.er.24h 120 Mg PO DAILY Symbicort 160-4.5 Mcg Inhaler (Budesonide/Formoterol Fumarate) 10.2 Gm Hfa.aer.ad 2 Puff IH BID Novolog (Insulin Aspart) 100 Unit/1 Ml Cartridge 27 Unit SQ TIDAC Lantus (Insulin Glargine,Hum.rec.anlog) 100 Unit/1 Ml Vial 70 Unit SQ HS Vitals/I & O Vital Sign - Last 24 Hours 11/07/16 11/07/16 11/07/16 11/07/16 15:00 16:28 19:00 20:00 Temp 98.4 98.1 98.4 98.1 Pulse 91 87 Resp 20 B/P 166/93 171/87 Pulse Ox 93 96 O2 Delivery Nasal Cannula Nasal Cannula Nasal Cannula Nasal Cannula O2 Flow Rate 3.0 3.0 3.0 11/07/16 11/07/16 11/08/16 11/08/16 20:18 23:00 05:43 06:07 Temp 98.4 97.5 98.4 97.5 Pulse 93 96 96 Resp 16 B/P 174/89 179/87 179/87 Pulse Ox 98 97 92 O2 Delivery Nasal Cannula Nasal Cannula Room Air O2 Flow Rate 3.0 11/08/16 11/08/16 11/08/16 11/08/16 07:00 07:23 09:04 09:21 Temp 99.9 99.9 Pulse 100 100 99 Resp 20 B/P 183/88 183/88 151/70 Pulse Ox 93 98 O2 Delivery Room Air Nasal Cannula O2 Flow Rate 3.0 11/08/16 11/08/16 11:00 11:21 Temp 100.9 100.9 Pulse 97 Resp 20 B/P 182/87 Pulse Ox 95 O2 Delivery Nasal Cannula Nasal Cannula O2 Flow Rate 2.0 3.0 Intake and Output 11/07/16 11/07/16 11/08/16 15:00 23:00 07:00 Intake Total 480 ml 1760 ml Output Total 750 ml Balance 480 ml 1010 ml SHAHEED ACOSTA MD Nov 08, 2016 12:15
--- NOTE | 2016-11-08 12:17 | PDOC ---
SUBJECTIVE ROS BIGG/ATN doing and feeling better OBJECTIVE Vital Signs Vital Signs Date Time Temp Pulse Resp B/P Pulse Ox O2 Delivery O2 Flow Rate FiO2 11/08/16 11:21 Nasal Cannula 3.0 11/08/16 11:00 100.9 97 20 182/87 95 100.9 I & 0 Intake and Output 11/08/16 07:00 Intake Total 2240 ml Output Total 750 ml Balance 1490 ml Intake Oral 1220 ml IV Total 1020 ml Output Urine Total 750 ml PHYSICAL EXAM Physical Exam General Appearance: Awake: Alert Oriented x 3 Neck: No JVD or JVP Chest: CTA Kristopher, rare basal rales Heart: S1 S2 Abdomen - Soft NTND Extremities - + Edema DIAGNOSIS/ASSESSMENT Assessment & Plan BIGG/ ATN - Stable Creat. Current fluid and E-lyte status does not necessitate emergent need for dialysis. ^Na - resolved low K - IV K PHos Low Phos - IV K phos and PO KCL as ordered Malign HTN: better on Current BP meds as reviewed. See orders for changes. Discussed Plan of Care with pt at bedside Problems: COMMENT/RELEVANT DATA Meds Current Medications Medications (Trade) Dose Ordered Sig/Mo Start Time Stop Time Status Last Admin Dose Admin Acetaminophen/ Hydrocodone Bitart 1 tab 1 tab PRN Q4HRS PRN 10/30/16 10:15 10/30/16 11:31 DC 10/30/16 10:30 1 TAB Acetaminophen/ Hydrocodone Bitart (Lortab 5/325) 2 tab PRN QID PRN 10/30/16 11:45 11/06/16 23:07 2 TAB Albuterol Sulfate (Ventolin Neb Soln) 2.5 mg PRN Q4HRS PRN 10/30/16 11:45 11/06/16 16:45 2.5 MG Albuterol/ Ipratropium (Duoneb) 3 ml Q4HRS W/A 11/06/16 18:00 11/08/16 06:00 3 ML Albuterol/ Ipratropium 3 ml 3 ml 1X ONCE 10/30/16 00:15 10/30/16 00:57 DC 10/30/16 00:31 3 ML Alprazolam (Xanax) 0.25 mg PRN Q8HRS PRN 11/01/16 10:30 11/03/16 20:44 0.25 MG Amoxicillin/ Clavulanate Potassium (Augmentin 875/ 125mg) 1 tab BID 11/05/16 21:00 11/05/16 21:00 DC Aspirin (Ecotrin) 81 mg [id number] 10/30/16 12:30 10/31/16 10:40 DC Budesonide (Pulmicort) 0.5 mg RTBID 10/30/16 20:00 11/06/16 19:05 DC 11/06/16 08:09 0.5 MG Cefpodoxime Proxetil (Vantin) 200 mg BID 11/05/16 21:00 11/08/16 11:37 DC 11/08/16 09:08 200 MG Cetirizine HCl (Zyrtec) 10 mg DAILY 10/30/16 12:30 11/08/16 09:09 10 MG Ciprofloxacin Lactate (Cipro 400mg Premix) 200 ml @ 200 mls/hr Q12HR 10/30/16 21:00 11/02/16 07:27 DC 11/01/16 21:38 200 MLS/HR Cyclobenzaprine HCl (Flexeril) 10 mg TID 10/30/16 14:00 11/01/16 10:21 DC 10/30/16 21:33 10 MG Dextrose 12.5 gm PRN Q15MIN PRN 11/03/16 20:45 Diazepam (Valium) 5 mg DAILY 10/30/16 12:30 11/01/16 10:21 DC 11/01/16 09:00 5 MG Diltiazem HCl (Cardizem 24hr Cd) 120 mg DAILY 10/30/16 12:30 11/08/16 09:04 120 MG Docusate Sodium (Colace) 100 mg DAILY 11/05/16 12:30 11/07/16 09:06 100 MG Escitalopram Oxalate (Lexapro) 5 mg DAILY 11/04/16 09:00 11/08/16 09:10 5 MG Famotidine (Pepcid) 20 mg BID 10/30/16 02:00 11/01/16 09:19 DC 10/30/16 21:33 20 MG Ferrous Sulfate (Feosol) 325 mg DAILY 10/30/16 12:30 11/08/16 09:09 325 MG Ferrous Sulfate 325 mg 325 mg QHS 11/04/16 21:00 11/04/16 21:00 DC Furosemide (Lasix) 20 mg 1X ONCE 11/06/16 19:15 11/06/16 19:16 DC 11/06/16 21:47 20 MG Gabapentin (Neurontin) 800 mg TID 10/30/16 14:00 11/08/16 09:09 800 MG Guaifenesin (Mucinex) 600 mg BID 11/01/16 14:00 11/08/16 09:08 600 MG Guaifenesin (Robitussin) 200 mg PRN Q4HRS PRN 11/01/16 13:15 11/05/16 13:00 200 MG Heparin Sodium (Porcine) 5,000 unit Q8HRS 11/04/16 14:00 11/08/16 05:54 5,000 UNIT Info (Do NOT chart on this entry -- for MONITORING) 1 each PRN DAILY PRN 10/31/16 09:15 11/02/16 09:14 DC Insulin Aspart (Novolog) 20 units 1X ONCE 11/06/16 22:00 11/06/16 22:01 DC 11/06/16 22:12 20 UNITS Insulin Aspart 15 units 15 units 1X ONCE 11/05/16 23:15 11/05/16 23:16 DC 11/05/16 23:27 15 UNITS Insulin Detemir (Levemir) 80 units QHS 11/05/16 21:00 11/07/16 20:39 80 UNITS Insulin Detemir 40 units 40 units QHS 11/02/16 21:00 11/04/16 06:31 DC 11/03/16 20:50 40 UNITS Insulin Human Regular 10 unit 10 unit 1X ONCE 10/30/16 01:00 10/30/16 01:01 DC 10/30/16 02:33 10 UNIT Iohexol (Omnipaque 240 Mg/ml) 30 ml 1X ONCE 10/31/16 09:00 10/31/16 09:03 DC 10/31/16 09:00 30 ML Iron Sucrose/ Sodium Chloride (Venofer/Iv Sodium Chloride 0.9% 250ml) 270 ml @ 90 mls/hr DAILY 11/05/16 09:00 11/04/16 14:59 UNV Labetalol HCl (Normodyne) 10 mg PRN Q2HR PRN 11/04/16 22:45 11/08/16 05:43 10 MG Lactobacillus Acidophilus (Bacid, Ashley-Bid) 1 tab [id number] 11/05/16 17:00 11/08/16 09:14 1 TAB Lisinopril (Prinivil) 10 mg DAILY 10/30/16 17:00 10/31/16 10:37 DC 10/30/16 17:13 10 MG Magnesium Hydroxide (Milk Of Magnesia) 2,400 mg PRN DAILY PRN 11/05/16 12:15 Magnesium Sulfate/ Dextrose (Magnesium Sulfate PREMIX 2GM) 50 ml @ 25 mls/hr PRN DAILY PRN 11/06/16 11:00 Methylprednisolone Sodium Succinate (Solu-Medrol 125mg Vial) 60 mg Q12HR 11/03/16 10:00 11/05/16 08:09 DC 11/04/16 21:44 60 MG Non-Formulary Medication 1.8 mg DAILY 10/31/16 09:00 11/01/16 07:09 DC Nystatin (Mycostatin) 1 fernandez BID 10/30/16 12:30 11/08/16 09:12 1 FERNANDEZ Ondansetron HCl (Zofran) 4 mg STK-MED ONCE 11/01/16 09:25 11/02/16 08:23 DC Pantoprazole Sodium (Protonix) 40 mg DAILYAC 10/30/16 12:30 11/08/16 05:42 40 MG Piperacillin Sod/ Tazobactam Sod (Zosyn Per Pharmacy) 1 each PRN DAILY PRN 11/01/16 13:15 11/01/16 13:16 DC Piperacillin Sod/ Tazobactam Sod 3.375 gm/Sodium Chloride 50 ml @ 100 mls/hr Q6HRS 11/08/16 12:00 Piperacillin Sod/ Tazobactam Sod 1 each 1 each PRN DAILY PRN 10/30/16 00:30 11/01/16 13:16 DC Piperacillin Sod/ Tazobactam Sod/ Sodium Chloride (Zosyn/Iv Sodium Chloride 0.9% 50ml) 50 ml @ 100 mls/hr 1X ONCE 10/30/16 01:00 10/30/16 01:29 DC 10/30/16 02:38 100 MLS/HR Piperacillin Sod/ Tazobactam Sod/ Sodium Chloride (Zosyn/Iv Sodium Chloride 0.9% 100ml) 100 ml @ 200 mls/hr Q6HRS 10/30/16 08:00 11/05/16 14:37 DC 11/05/16 11:26 200 MLS/HR Polyethylene Glycol (miraLAX PACKET) 17 gm PRN DAILY PRN 11/05/16 12:15 Potassium Chloride 40 meq/ Sodium Chloride 1,020 ml @ 75 mls/hr [id number] 11/06/16 10:56 11/07/16 14:07 DC 11/07/16 01:34 75 MLS/HR Potassium Chloride (Klor-Con) 20 meq 1X ONCE 11/07/16 15:45 11/07/16 15:46 DC 11/07/16 17:09 20 MEQ Prednisone (Prednisone) 40 mg DAILY 11/05/16 09:00 11/08/16 09:08 40 MG Promethazine HCl/ Codeine (Phenergan With Codeine) 5 ml PRN Q4HRS PRN 10/30/16 10:15 11/04/16 21:53 5 ML Simvastatin (Zocor) 40 mg HS 10/30/16 21:00 11/07/16 20:33 40 MG Sodium Chloride (Iv Sodium Chloride 0.45%) 1,000 ml @ 75 mls/hr [id number] 11/02/16 14:45 11/06/16 10:58 DC 11/06/16 04:00 75 MLS/HR Sodium Chloride (Iv Sodium Chloride 0.9% 500ml Bag) 500 ml @ 500 mls/hr 1X ONCE 10/31/16 08:30 10/31/16 09:29 DC 10/31/16 08:00 500 MLS/HR Sodium Chloride (Normal Saline Flush) 10 ml QSHIFT PRN 10/29/16 23:30 Throat Lozenges 1 justin 1 justin PRN Q2HRS PRN 10/30/16 18:15 11/05/16 13:01 1 JUSTIN Vancomycin HCl 1 each 1X ONCE 11/10/16 00:30 11/10/16 00:31 Vancomycin HCl (Vanco Per Pharmacy) 1 each PRN DAILY PRN 10/30/16 00:30 11/02/16 07:27 DC 11/01/16 14:32 1 EACH Vancomycin HCl 1 each 1 each PRN DAILY PRN 11/08/16 11:45 11/08/16 11:51 1 EACH Vancomycin HCl 2 gm/Sodium Chloride 500 ml @ 250 mls/hr 1X ONCE 11/08/16 13:00 11/08/16 14:59 Vancomycin HCl/ Sodium Chloride (Iv Sodium Chloride 0.9% 250ml) 250 ml @ 166.667 mls/hr Q12H ONCE 11/09/16 01:00 11/09/16 02:29 Vancomycin HCl/ Sodium Chloride (Iv Sodium Chloride 0.9% 500ml Bag) 500 ml @ 250 mls/hr Q12H 10/30/16 17:00 11/02/16 07:27 DC 11/02/16 04:42 250 MLS/HR Zolpidem Tartrate (Ambien) 5 mg PRN QHS PRN 10/30/16 11:30 11/04/16 12:44 DC 11/03/16 20:44 5 MG Lab Laboratory Tests Test 11/07/16 16:45 11/07/16 20:37 11/08/16 06:30 11/08/16 07:56 Glucose (Fingerstick) 291mg/dL (70-99) 326mg/dL (70-99) 284mg/dL (70-99) White Blood Count 10.0x10^3/uL (4.0-11.0) Red Blood Count 3.77x10^6/uL (3.50-5.40) Hemoglobin 9.3g/dL (12.0-15.5) Hematocrit 30.5% (36.0-47.0) Mean Corpuscular Volume 81fL (79-100) Mean Corpuscular Hemoglobin 25pg (25-35) Mean Corpuscular Hemoglobin Concent 30g/dL (31-37) Red Cell Distribution Width 19.8% (11.5-14.5) Platelet Count 375x10^3/uL (140-400) Neutrophils (%) (Auto) 80% (31-73) Lymphocytes (%) (Auto) 12% (24-48) Monocytes (%) (Auto) 7% (0-9) Eosinophils (%) (Auto) 0% (0-3) Basophils (%) (Auto) 1% (0-3) Neutrophils # (Auto) 8.1x10^3uL (1.8-7.7) Lymphocytes # (Auto) 1.2x10^3/uL (1.0-4.8) Monocytes # (Auto) 0.7x10^3/uL (0.0-1.1) Eosinophils # (Auto) 0.0x10^3/uL (0.0-0.7) Basophils # (Auto) 0.0x10^3/uL (0.0-0.2) Sodium Level 145mmol/L (136-145) Potassium Level 3.4mmol/L (3.5-5.1) Chloride Level 108mmol/L (98-107) Carbon Dioxide Level 25mmol/L (21-32) Anion Gap 12 (6-14) Blood Urea Nitrogen 17mg/dL (7-20) Creatinine 1.5mg/dL (0.6-1.0) Estimated GFR (Cockcroft-Gault) 37.9 Glucose Level 304mg/dL (70-99) Calcium Level 8.8mg/dL (8.5-10.1) Phosphorus Level 2.0mg/dL (2.6-4.7) Magnesium Level 1.7mg/dL (1.8-2.4) Albumin 2.9g/dL (3.4-5.0) ORALIA CHAVES MD Nov 08, 2016 12:17
[2016-11-08] MEDS ORDERED: VANCOMYCIN 2 GM in IV NORMAL SALINE 500ML BAG 500 ML IV ONE (13:00)
[2016-11-08 15:30] LABS: OBC FLU VALID
[2016-11-08] MEDS: POTASSIUM PHOSPHATE DIBASIC 13.6 MMOL in IV NORMAL SALINE 100ML 100 ML IV SCH ×3 (19:20→23:25)
[2016-11-08] MEDS: SIMVASTATIN 40 MG TABLET. PO SCH (21:31)
[2016-11-08] MEDS: INSULIN DETEMIR 300 UNITS/3 ML INSULN.PEN. SQ SCH (21:36)
[2016-11-09] VITALS (7 sets, daily range): BP systolic 148–197; BP diastolic 85–98
[2016-11-09] MEDS: PIPERACILLIN/TAZOBACTAM 3.375 GM in IV NORMAL SALINE 50ML 50 ML IV SCH ×5 (00:33→23:43)
[2016-11-09] MEDS ORDERED: VANCOMYCIN 1.25 GM in IV NORMAL SALINE 250ML 250 ML IV ONE (01:00)
[2016-11-09 04:26] LABS: ALBUMIN 2.9 g/dL (3.4-5.0); CALCIUM 8.5 mg/dL (8.5-10.1); CREATININE 1.3 mg/dL (0.6-1.0); GFR 44.7; PHOSPHORUS 4.3 mg/dL (2.6-4.7)
[2016-11-09] MEDS: PANTOPRAZOLE 40 MG TABLET. PO SCH (06:22)
[2016-11-09] MEDS: HEPARIN PF for SUB-Q USE 5,000 UNIT/0.5 ML VIAL. SQ SCH ×3 (06:30→22:02)
[2016-11-09] MEDS: IPRATRPIUM/ALBUTEROL 0.5/2.5MG 3 ML NEBU. NEB SCH ×4 (08:01→19:56)
[2016-11-09] MEDS: FERROUS SULFATE 325 MG TABLET PO SCH (08:18)
[2016-11-09] MEDS: POTASSIUM CHLORIDE 20 MEQ TABLET.ER. PO SCH (08:18)
[2016-11-09] MEDS: DILTIAZEM HCL 120 MG CAP.ER.24H PO SCH (08:21)
[2016-11-09] MEDS: CETIRIZINE HCL 10 MG TABLET PO SCH (08:22)
[2016-11-09] MEDS: GABAPENTIN 400 MG CAPSULE. PO SCH ×3 (08:22→20:47)
[2016-11-09] MEDS: PREDNISONE 20 MG TABLET PO SCH (08:22)
[2016-11-09] MEDS: GUAIFENESIN ER 600 MG TABLET.ER PO SCH ×2 (08:22→20:47)
[2016-11-09] MEDS: LACTOBACILLUS ACIDOPH & BULGAR 1 TABLET. PO SCH ×3 (08:25→17:31)
[2016-11-09] MEDS: ESCITALOPRAM 10 MG TABLET. PO SCH (08:25)
[2016-11-09] MEDS: DOCUSATE SODIUM 100 MG CAPSULE PO SCH (08:25)
[2016-11-09] MEDS: NYSTATIN 100,000 UNIT/GM TOPICAL CREAM 15GM TUBE. TP SCH ×2 (08:25→20:49)
[2016-11-09] MEDS: INSULIN ASPART 300 UNITS/3 ML INSULN.PEN SQ SCH ×6 (08:32→17:34)
--- NOTE | 2016-11-09 09:27 | PDOC ---
PROGRESS NOTES Chief Complaint Chief Complaint 1. Bronchitis 2. Asthma exacerbation 3. Afib 4. Sepsis 5. Encephalopathy 6. BIGG 7. Hypernatremia 8. DM 9. Anemia 10. Depression 11. Anxiety History of Present Illness History of Present Illness Pt receiving breathing treatment D/C held yesterday secondary to fever Probable D/C tomorrow if ok with subspecialties DW respiratory therapist DW RN Vitals Vitals Vital Signs Date Time Temp Pulse Resp B/P Pulse Ox O2 Delivery O2 Flow Rate FiO2 11/09/16 08:21 84 171/98 11/09/16 08:02 98 Nasal Cannula 2.0 11/09/16 07:15 98.1 18 98.1 Physical Exam General: Cooperative, No acute distress, Other (lethargic, answers appropriately) Heart: Regular rate, No murmurs Lungs: Wheezing (faint post), Other (Course breath sounds) Abdomen: Normal bowel sounds, Soft, No tenderness Extremities: No clubbing, No cyanosis, No edema Skin: No rashes, No breakdown Labs LABS Laboratory Tests Test 11/08/16 10:56 11/08/16 14:00 11/08/16 17:34 11/08/16 20:25 Glucose (Fingerstick) 237mg/dL (70-99) 199mg/dL (70-99) 299mg/dL (70-99) Influenza Type A Antigen Negative (NEGATIVE) Influenza Type B Antigen Negative (NEGATIVE) Test 11/09/16 03:25 11/09/16 07:39 Sodium Level 146mmol/L (136-145) Potassium Level 4.0mmol/L (3.5-5.1) Chloride Level 109mmol/L (98-107) Carbon Dioxide Level 27mmol/L (21-32) Anion Gap 10 (6-14) Blood Urea Nitrogen 18mg/dL (7-20) Creatinine 1.3mg/dL (0.6-1.0) Estimated GFR (Cockcroft-Gault) 44.7 Glucose Level 294mg/dL (70-99) Calcium Level 8.5mg/dL (8.5-10.1) Phosphorus Level 4.3mg/dL (2.6-4.7) Magnesium Level 1.9mg/dL (1.8-2.4) Albumin 2.9g/dL (3.4-5.0) Glucose (Fingerstick) 186mg/dL (70-99) Review of Systems Review of Systems Complains of cough Complains of fatigue Assessment and Plan Assessmemt and Plan Problems Medical Problems: (1) Healthcare-associated pneumonia Status: Acute (2) Hyperglycemia Status: Acute Assessment: 1. Bronchitis 2. Asthma exacerbation 3. Afib 4. Sepsis 5. Encephalopathy 6. BIGG 7. Hypernatremia 8. DM 9. Anemia 10. Depression 11. Anxiety Plan: Continue antibiotics Continue steroids Continue nebs, O2 Repeat labs Continue home meds PTOT Problems: Comment Review of Relevant I have reviewed the following items emery (where applicable) has been applied. Labs Laboratory Tests Test 11/07/16 11:40 11/07/16 16:45 11/07/16 20:37 11/08/16 06:30 Glucose (Fingerstick) 151mg/dL (70-99) 291mg/dL (70-99) 326mg/dL (70-99) White Blood Count 10.0x10^3/uL (4.0-11.0) Red Blood Count 3.77x10^6/uL (3.50-5.40) Hemoglobin 9.3g/dL (12.0-15.5) Hematocrit 30.5% (36.0-47.0) Mean Corpuscular Volume 81fL (79-100) Mean Corpuscular Hemoglobin 25pg (25-35) Mean Corpuscular Hemoglobin Concent 30g/dL (31-37) Red Cell Distribution Width 19.8% (11.5-14.5) Platelet Count 375x10^3/uL (140-400) Neutrophils (%) (Auto) 80% (31-73) Lymphocytes (%) (Auto) 12% (24-48) Monocytes (%) (Auto) 7% (0-9) Eosinophils (%) (Auto) 0% (0-3) Basophils (%) (Auto) 1% (0-3) Neutrophils # (Auto) 8.1x10^3uL (1.8-7.7) Lymphocytes # (Auto) 1.2x10^3/uL (1.0-4.8) Monocytes # (Auto) 0.7x10^3/uL (0.0-1.1) Eosinophils # (Auto) 0.0x10^3/uL (0.0-0.7) Basophils # (Auto) 0.0x10^3/uL (0.0-0.2) Sodium Level 145mmol/L (136-145) Potassium Level 3.4mmol/L (3.5-5.1) Chloride Level 108mmol/L (98-107) Carbon Dioxide Level 25mmol/L (21-32) Anion Gap 12 (6-14) Blood Urea Nitrogen 17mg/dL (7-20) Creatinine 1.5mg/dL (0.6-1.0) Estimated GFR (Cockcroft-Gault) 37.9 Glucose Level 304mg/dL (70-99) Calcium Level 8.8mg/dL (8.5-10.1) Phosphorus Level 2.0mg/dL (2.6-4.7) Magnesium Level 1.7mg/dL (1.8-2.4) Albumin 2.9g/dL (3.4-5.0) Procalcitonin < 0.10ng/mL (0.00-0.10) Test 11/08/16 07:56 11/08/16 10:56 11/08/16 14:00 11/08/16 17:34 Glucose (Fingerstick) 284mg/dL (70-99) 237mg/dL (70-99) 199mg/dL (70-99) Influenza Type A Antigen Negative (NEGATIVE) Influenza Type B Antigen Negative (NEGATIVE) Test 11/08/16 20:25 11/09/16 03:25 11/09/16 07:39 Glucose (Fingerstick) 299mg/dL (70-99) 186mg/dL (70-99) Sodium Level 146mmol/L (136-145) Potassium Level 4.0mmol/L (3.5-5.1) Chloride Level 109mmol/L (98-107) Carbon Dioxide Level 27mmol/L (21-32) Anion Gap 10 (6-14) Blood Urea Nitrogen 18mg/dL (7-20) Creatinine 1.3mg/dL (0.6-1.0) Estimated GFR (Cockcroft-Gault) 44.7 Glucose Level 294mg/dL (70-99) Calcium Level 8.5mg/dL (8.5-10.1) Phosphorus Level 4.3mg/dL (2.6-4.7) Magnesium Level 1.9mg/dL (1.8-2.4) Albumin 2.9g/dL (3.4-5.0) Laboratory Tests Test 11/08/16 10:56 11/08/16 14:00 11/08/16 17:34 11/08/16 20:25 Glucose (Fingerstick) 237mg/dL (70-99) 199mg/dL (70-99) 299mg/dL (70-99) Influenza Type A Antigen Negative (NEGATIVE) Influenza Type B Antigen Negative (NEGATIVE) Test 11/09/16 03:25 11/09/16 07:39 Sodium Level 146mmol/L (136-145) Potassium Level 4.0mmol/L (3.5-5.1) Chloride Level 109mmol/L (98-107) Carbon Dioxide Level 27mmol/L (21-32) Anion Gap 10 (6-14) Blood Urea Nitrogen 18mg/dL (7-20) Creatinine 1.3mg/dL (0.6-1.0) Estimated GFR (Cockcroft-Gault) 44.7 Glucose Level 294mg/dL (70-99) Calcium Level 8.5mg/dL (8.5-10.1) Phosphorus Level 4.3mg/dL (2.6-4.7) Magnesium Level 1.9mg/dL (1.8-2.4) Albumin 2.9g/dL (3.4-5.0) Glucose (Fingerstick) 186mg/dL (70-99) Microbiology 10/30/16 Blood Culture - Final, Complete NO GROWTH AFTER 5 DAYS 11/06/16 Urine Culture - Final, Complete 11/06/16 Urine Culture Result 1 (ERWIN) - Final, Complete Medications Current Medications Sodium Chloride 10 ml 10 ml QSHIFT PRN IV AFTER MEDS AND BLOOD DRAWS; Start 09/02 at 23:30 Sodium Chloride (Iv Sodium Chloride 0.9% 500ml Bag) 500 ml @ 500 mls/hr 1X ONCE IV Last administered on 10/29/16t 23:43; Start 10/29/16 at 23:45; Stop at 00:44; Status DC Albuterol/ Ipratropium 3 ml 3 ml 1X ONCE NEB Last administered on 10/30/16 00 :31; Start 10/30/16 at 00:15; Stop 10/30/16 at 00:57; Status DC Piperacillin Sod/ Tazobactam Sod 3.375 gm/Sodium Chloride 50 ml @ 100 mls/hr 1X ONCE IV Last administered on 10/30/16 02:38; Start 10/30/16 at 01:00; Stop 10/30/16 at 01:29; Status DC Ciprofloxacin Lactate (Cipro 400mg Premix) 200 ml @ 200 mls/hr 1X ONCE IV Last administered on 10/30/16 03:35; Start 10/30/16 at 01:30; Stop 10/30/16 at 02:29; Status DC Vancomycin HCl (Vanco Per Pharmacy) 1 each PRN DAILY PRN MC SEE COMMENTS Last administered on 11/01/16 14:32; Start 10/30/16 at 00:30; Stop 11/02/16 at 07:27 ; Status DC Albuterol/ Ipratropium (Duoneb) 3 ml RTQID NEB Last administered on 10/31/16 07:06; Start 10/30/16 at 08:00; Stop 10/31/16 at 07:59; Status DC Piperacillin Sod/ Tazobactam Sod 1 each 1 each PRN DAILY PRN MC SEE COMMENTS; Start 10/30/16 at 00:30; Stop 11/01/16 at 13:16; Status DC Ciprofloxacin Lactate (Cipro 400mg Premix) 200 ml @ 200 mls/hr Q12HR IV Last administered on 11/01/16 21:38; Start 10/30/16 at 21:00; Stop 11/02/16 at 07:27 ; Status DC Famotidine (Pepcid) 20 mg BID PO Last administered on 10/30/16 21:33; Start at 02:00; Stop 11/01/16 at 09:19; Status DC Insulin Human Regular 10 unit 10 unit 1X ONCE IV Last administered on 02:33; Start 10/30/16 at 01:00; Stop 10/30/16 at 01:01; Status DC Vancomycin HCl 2 gm/Sodium Chloride 500 ml @ 250 mls/hr 1X ONCE IV Last administered on 10/30/16 04:56; Start 10/30/16 at 05:00; Stop 10/30/16 at 06:59 ; Status DC Piperacillin Sod/ Tazobactam Sod/ Sodium Chloride (Zosyn/Iv Sodium Chloride 0.9 % 100ml) 100 ml @ 200 mls/hr Q6HRS IV Last administered on 11/05/16 11:26; Start 10/30/16 at 08:00; Stop 11/05/16 at 14:37; Status DC Promethazine HCl/ Codeine (Phenergan With Codeine) 5 ml PRN Q4HRS PRN PO COUGH Last administered on 11/04/16 21:53; Start 10/30/16 at 10:15 Acetaminophen/ Hydrocodone Bitart 1 tab 1 tab PRN Q4HRS PRN PO PAIN Last administered on 10/30/16 10:30; Start 10/30/16 at 10:15; Stop 10/30/16 at 11:31 ; Status DC Vancomycin HCl/ Sodium Chloride (Iv Sodium Chloride 0.9% 500ml Bag) 500 ml @ 250 mls/hr Q12H IV Last administered on 11/02/16 04:42; Start 10/30/16 at 17: 00; Stop 11/02/16 at 07:27; Status DC Vancomycin HCl 1 each 1X ONCE MC Last administered on 10/31/16 16:30; Start 10/31/16 at 16:30; Stop 10/31/16 at 16:31; Status DC Cyclobenzaprine HCl (Flexeril) 10 mg TID PO Last administered on 10/30/16 21: 33; Start 10/30/16 at 14:00; Stop 11/01/16 at 10:21; Status DC Diazepam (Valium) 5 mg DAILY PO Last administered on 11/01/16 09:00; Start at 12:30; Stop 11/01/16 at 10:21; Status DC Diltiazem HCl (Cardizem 24hr Cd) 120 mg DAILY PO Last administered on 09:04; Start 10/30/16 at 12:30; Stop 11/08/16 at 12:18; Status DC Escitalopram Oxalate (Lexapro) 5 mg DAILY PO Last administered on 11/03/16 08: 03; Start 10/30/16 at 12:30; Stop 11/03/16 at 18:48; Status DC Ferrous Sulfate (Feosol) 325 mg DAILY PO Last administered on 11/09/16 08:18; Start 10/30/16 at 12:30 Acetaminophen/ Hydrocodone Bitart (Lortab 5/325) 1 tab PRN QID PRN PO MODERATE PAIN Last administered on 11/06/16 06:00; Start 10/30/16 at 11:30 Nystatin (Mycostatin) 1 vianney BID TP Last administered on 11/09/16 08:25; Start 10/30/16 at 12:30 Simvastatin (Zocor) 40 mg HS PO Last administered on 11/08/16 21:31; Start at 21:00 Zolpidem Tartrate (Ambien) 5 mg PRN QHS PRN PO INSOMNIA Last administered on 20:44; Start 10/30/16 at 11:30; Stop 11/04/16 at 12:44; Status DC Albuterol Sulfate (Ventolin Neb Soln) 2.5 mg PRN Q4HRS PRN NEB SHORTNESS OF BREATH Last administered on 11/06/16 16:45; Start 10/30/16 at 11:45 Budesonide (Pulmicort) 0.5 mg RTBID NEB Last administered on 11/06/16 08:09; Start 10/30/16 at 20:00; Stop 11/06/16 at 19:05; Status DC Non-Formulary Medication 500 mg QID PO ; Start 10/30/16 at 13:00; Stop 10/30/16 at 13:00; Status DC Cetirizine HCl (Zyrtec) 10 mg DAILY PO Last administered on 11/09/16 08:22; Start 10/30/16 at 12:30 Gabapentin (Neurontin) 800 mg TID PO Last administered on 11/09/16 08:22; Start 10/30/16 at 14:00 Insulin Aspart (Novolog) 27 units TIDAC SQ Last administered on 10/31/16 13:49 ; Start 10/30/16 at 12:00; Stop 11/01/16 at 10:21; Status DC Insulin Detemir (Levemir) 70 units QHS SQ Last administered on 10/31/16 21:10 ; Start 10/30/16 at 21:00; Stop 11/01/16 at 13:13; Status DC Non-Formulary Medication 1.8 mg DAILY SQ ; Start 10/31/16 at 09:00; Stop at 07:09; Status DC Pantoprazole Sodium (Protonix) 40 mg DAILYAC PO Last administered on 11/09/16 06:22; Start 10/30/16 at 12:30 Aspirin (Ecotrin) 81 mg DAILYWBKFT PO ; Start 10/30/16 at 12:30; Stop 10/31/16 at 10:40; Status DC Acetaminophen/ Hydrocodone Bitart (Lortab 5/325) 2 tab PRN QID PRN PO SEVERE PAIN Last administered on 11/06/16 23:07; Start 10/30/16 at 11:45 Lisinopril (Prinivil) 10 mg DAILY PO Last administered on 10/30/16 17:13; Start 10/30/16 at 17:00; Stop 10/31/16 at 10:37; Status DC Throat Lozenges 1 abena 1 abena PRN Q2HRS PRN PO SORE THROAT Last administered on 13:01; Start 10/30/16 at 18:15 Sodium Chloride (Iv Sodium Chloride 0.9% 500ml Bag) 500 ml @ 500 mls/hr 1X ONCE IV Last administered on 10/31/16 08:00; Start 10/31/16 at 08:30; Stop at 09:29; Status DC Iohexol (Omnipaque 240 Mg/ml) 30 ml 1X ONCE PO Last administered on 10/31/16 09:00; Start 10/31/16 at 09:00; Stop 10/31/16 at 09:03; Status DC Info 1 each 1 each PRN DAILY PRN MC SEE COMMENTS; Start 10/31/16 at 09:15; Stop 11/02/16 at 09:14; Status DC Sodium Chloride (Iv Sodium Chloride 0.45%) 1,000 ml @ 125 mls/hr 1X ONCE IV Last administered on 10/31/16 11:24; Start 10/31/16 at 11:00; Stop 10/31/16 at 19:00; Status DC Ondansetron HCl (Zofran) 4 mg STK-MED ONCE .ROUTE ; Start 11/01/16 at 09:25; Stop 11/01/16 at 09:26; Status DC Insulin Aspart (Novolog) 20 units TIDAC SQ Last administered on 11/02/16 13:03 ; Start 11/01/16 at 11:30; Stop 11/02/16 at 14:43; Status DC Alprazolam 0.25 mg 0.25 mg PRN Q8HRS PRN PO ANXIETY / AGITATION Last administered on 11/03/16 20:44; Start 11/01/16 at 10:30 Sodium Chloride (Iv Sodium Chloride 0.45%) 1,000 ml @ 75 mls/hr 1X ONCE IV Last administered on 11/01/16 13:57; Start 11/01/16 at 10:30; Stop 11/01/16 at 23:49; Status DC Insulin Detemir (Levemir) 60 units QHS SQ ; Start 11/01/16 at 21:00; Stop at 14:43; Status DC Piperacillin Sod/ Tazobactam Sod (Zosyn Per Pharmacy) 1 each PRN DAILY PRN MC SEE COMMENTS; Start 11/01/16 at 13:15; Stop 11/01/16 at 13:16; Status DC Guaifenesin (Mucinex) 600 mg BID PO Last administered on 11/09/16 08:22; Start 11/01/16 at 14:00 Guaifenesin (Robitussin) 200 mg PRN Q4HRS PRN PO COUGH Last administered on 13:00; Start 11/01/16 at 13:15 Ondansetron HCl (Zofran) 4 mg STK-MED ONCE .ROUTE ; Start 11/01/16 at 09:25; Stop 11/02/16 at 08:23; Status DC Insulin Aspart (Novolog) 15 units TIDAC SQ Last administered on 11/03/16 17:16 ; Start 11/02/16 at 16:30; Stop 11/03/16 at 20:43; Status DC Insulin Detemir 40 units 40 units QHS SQ Last administered on 11/03/16 20:50; Start 11/02/16 at 21:00; Stop 11/04/16 at 06:31; Status DC Sodium Chloride 1,000 ml @ 75 mls/hr [id number] IV Last administered on 04:00; Start 11/02/16 at 14:45; Stop 11/06/16 at 10:58; Status DC Iron Sucrose/ Sodium Chloride (Venofer/Iv Sodium Chloride 0.9% 250ml) 270 ml @ 90 mls/hr DAILY IV Last administered on 11/04/16 11:04; Start 11/02/16 at 15: 00; Stop 11/04/16 at 12:39; Status DC Methylprednisolone Sodium Succinate (Solu-Medrol 125mg Vial) 60 mg Q12HR IV Last administered on 11/04/16 21:44; Start 11/03/16 at 10:00; Stop 11/05/16 at 08:09; Status DC Escitalopram Oxalate (Lexapro) 5 mg DAILY PO Last administered on 11/09/16 08: 25; Start 11/04/16 at 09:00 Insulin Aspart (Novolog) 0-9 UNITS TIDWMEALS SQ Last administered on 11/09/16 08:33; Start 11/04/16 at 08:00 Dextrose 12.5 gm PRN Q15MIN PRN IV SEE COMMENTS; Start 11/03/16 at 20:45 Insulin Aspart (Novolog) 10 units 1X ONCE SQ Last administered on 11/03/16 21 :42; Start 11/03/16 at 21:30; Stop 11/03/16 at 21:31; Status DC Insulin Aspart (Novolog) 10 units 1X ONCE SQ Last administered on 11/03/16 23 :35; Start 11/03/16 at 23:45; Stop 11/03/16 at 23:46; Status DC Insulin Detemir (Levemir) 50 units QHS SQ ; Start 11/04/16 at 21:00; Stop at 21:00; Status DC Heparin Sodium (Porcine) 5,000 unit Q8HRS SQ Last administered on 11/09/16 06: 30; Start 11/04/16 at 14:00 Ferrous Sulfate 325 mg 325 mg QHS PO ; Start 11/04/16 at 21:00; Stop 11/04/16 at 21:00; Status DC Iron Sucrose/ Sodium Chloride (Venofer/Iv Sodium Chloride 0.9% 250ml) 270 ml @ 90 mls/hr DAILY IV ; Start 11/05/16 at 09:00; Stop 11/04/16 at 14:59; Status UNV Insulin Detemir (Levemir) 70 units QHS SQ Last administered on 11/04/16 21:51 ; Start 11/04/16 at 21:00; Stop 11/05/16 at 18:43; Status DC Albuterol/ Ipratropium (Duoneb) 3 ml RTQID NEB Last administered on 11/06/16 12:02; Start 11/04/16 at 16:00; Stop 11/06/16 at 15:29; Status DC Insulin Aspart (Novolog) 20 units 1X ONCE SQ Last administered on 11/04/16 17 :47; Start 11/04/16 at 17:30; Stop 11/04/16 at 17:31; Status DC Labetalol HCl (Normodyne) 10 mg PRN Q2HR PRN IVP HYPERTENSION, SEE COMMENTS Last administered on 11/08/16 23:21; Start 11/04/16 at 22:45 Prednisone (Prednisone) 40 mg DAILY PO Last administered on 11/09/16 08:22; Start 11/05/16 at 09:00 Insulin Aspart (Novolog) 20 units TIDAC SQ ; Start 11/05/16 at 11:30; Stop 11/05 at 11:57; Status DC Insulin Aspart (Novolog) 27 units TIDAC SQ Last administered on 11/05/16 17:31 ; Start 11/05/16 at 12:00; Stop 11/05/16 at 18:43; Status DC Magnesium Hydroxide (Milk Of Magnesia) 2,400 mg PRN DAILY PRN PO CONSTIPATION; Start 11/05/16 at 12:15 Polyethylene Glycol (miraLAX PACKET) 17 gm PRN DAILY PRN PO CONSTIPATION; Start 11/05/16 at 12:15 Docusate Sodium (Colace) 100 mg DAILY PO Last administered on 11/09/16 08:25; Start 11/05/16 at 12:30 Amoxicillin/ Clavulanate Potassium (Augmentin 875/ 125mg) 1 tab BID PO ; Start 11/05/16 at 21:00; Stop 11/05/16 at 21:00; Status DC Lactobacillus Acidophilus (Bacid, Ashley-Bid) 1 tab TIDWMEALS PO Last administered on 11/09/16 08:25; Start 11/05/16 at 17:00 Cefpodoxime Proxetil (Vantin) 200 mg BID PO Last administered on 11/08/16 09: 08; Start 11/05/16 at 21:00; Stop 11/08/16 at 11:37; Status DC Insulin Aspart (Novolog) 30 units TIDAC SQ Last administered on 11/09/16 08:32 ; Start 11/06/16 at 07:30 Insulin Detemir (Levemir) 80 units QHS SQ Last administered on 11/08/16 21:36 ; Start 11/05/16 at 21:00 Insulin Aspart 15 units 15 units 1X ONCE SQ Last administered on 11/05/16 23: 27; Start 11/05/16 at 23:15; Stop 11/05/16 at 23:16; Status DC Potassium Chloride 40 meq/ Sodium Chloride 1,020 ml @ 75 mls/hr [id number] IV Last administered on 11/07/16 01:34; Start 11/06/16 at 10:56; Stop 11/07/16 at 14:07; Status DC Magnesium Sulfate/ Dextrose (Magnesium Sulfate PREMIX 2GM) 50 ml @ 25 mls/hr PRN DAILY PRN IV for Mag < 1.7 on am labs; Start 11/06/16 at 11:00 Potassium Chloride (Klor-Con) 20 meq 1X ONCE PO Last administered on 15:16; Start 11/06/16 at 14:15; Stop 11/06/16 at 14:16; Status DC Albuterol/ Ipratropium (Duoneb) 3 ml Q4HRS W/A NEB Last administered on 08:01; Start 11/06/16 at 18:00 Furosemide (Lasix) 20 mg 1X ONCE IVP Last administered on 11/06/16 21:47; Start 11/06/16 at 19:15; Stop 11/06/16 at 19:16; Status DC Insulin Aspart (Novolog) 20 units 1X ONCE SQ Last administered on 11/06/16 22 :12; Start 11/06/16 at 22:00; Stop 11/06/16 at 22:01; Status DC Potassium Chloride (Klor-Con) 20 meq DAILYWBKFT PO Last administered on 08:18; Start 11/08/16 at 08:00 Potassium Chloride (Klor-Con) 20 meq 1X ONCE PO Last administered on 17:09; Start 11/07/16 at 15:45; Stop 11/07/16 at 15:46; Status DC Vancomycin HCl 1 each 1 each PRN DAILY PRN MC SEE COMMENTS Last administered on 11/08/16 11:51; Start 11/08/16 at 11:45 Piperacillin Sod/ Tazobactam Sod 3.375 gm/Sodium Chloride 50 ml @ 100 mls/hr Q6HRS IV Last administered on 11/09/16 06:22; Start 11/08/16 at 12:00 Vancomycin HCl 2 gm/Sodium Chloride 500 ml @ 250 mls/hr 1X ONCE IV Last administered on 11/08/16 16:10; Start 11/08/16 at 13:00; Stop 11/08/16 at 14:59 ; Status DC Vancomycin HCl/ Sodium Chloride (Iv Sodium Chloride 0.9% 250ml) 250 ml @ 166.667 mls/hr Q12H ONCE IV Last administered on 11/09/16 01:29; Start at 01:00; Stop 11/09/16 at 02:29; Status DC Vancomycin HCl 1 each 1X ONCE MC ; Start 11/10/16 at 00:30; Stop 11/10/16 at 00 :31 Diltiazem HCl 240 mg 240 mg DAILY PO Last administered on 11/09/16 08:21; Start 11/09/16 at 09:00 Potassium Phosphate 13.6 mmol/Sodium Chloride 104.5333 ml @ 52.267 m... Q2H IV Last administered on 11/08/16 23:25; Start 11/08/16 at 13:00; Stop 11/08/16 at 18:59; Status DC Magnesium Sulfate/ Dextrose (Magnesium Sulfate PREMIX 1GM) 100 ml @ 100 mls/hr 1X ONCE IV Last administered on 11/08/16 14:47; Start 11/08/16 at 12:15; Stop 11/08/16 at 13:14; Status DC Active Scripts Active Nystatin 15 Gm Cream..g. 1 Vianney TP BID 10 Days Ambien (Zolpidem Tartrate) 5 Mg Tablet 5 Mg PO PRN QHS PRN [place] 5-325 Tablet (Acetaminophen/Hydrocodone Bitart) 1 Each Tablet 1-2 Tab PO Q4-6HRS Reported Aspirin Ec (Aspirin) 81 Mg Tablet.dr 81 Mg PO DAILY Gabapentin 800 Mg Tablet 800 Mg PO TID Victoza 3-[place] (Liraglutide) 0.6 Mg/0.1 Ml Pen.injctr 1.8 Mg SQ DAILY Omeprazole 40 Mg Capsule.dr 40 Mg PO DAILY Cyclobenzaprine Hcl 10 Mg Tablet 10 Mg PO TID Iron (Ferrous Sulfate) 325 Mg Tablet 325 Mg PO DAILY Valium (Diazepam) 5 Mg Tablet 5 Mg PO DAILY Lexapro (Escitalopram Oxalate) 5 Mg Tablet 5 Mg PO DAILY Fexofenadine Hcl 180 Mg Tablet 180 Mg PO DAILY Albuterol Sulfate Conc Neb Soln (Albuterol Sulfate) 2.5 Mg/0.5 Ml Vial.neb 2.5 Mg NEB Q4HRS PRN Simvastatin 40 Mg Tablet 40 Mg PO HS Diltiazem 24HR Cd (Diltiazem Hcl) 120 Mg Cap.er.24h 120 Mg PO DAILY Symbicort 160-4.5 Mcg Inhaler (Budesonide/Formoterol Fumarate) 10.2 Gm Hfa.aer.ad 2 Puff IH BID Novolog (Insulin Aspart) 100 Unit/1 Ml Cartridge 27 Unit SQ TIDAC Lantus (Insulin Glargine,Hum.rec.anlog) 100 Unit/1 Ml Vial 70 Unit SQ HS Vitals/I & O Vital Sign - Last 24 Hours 11/08/16 11/08/16 11/08/16 11/08/16 09:21 11:00 11:21 14:59 Temp 100.9 100.9 Pulse 99 97 Resp 20 B/P 151/70 182/87 Pulse Ox 95 O2 Delivery Nasal Cannula Nasal Cannula Nasal Cannula O2 Flow Rate 2.0 3.0 3.0 11/08/16 11/08/16 11/08/16 11/08/16 15:00 17:56 19:00 20:00 Temp 98.4 98.8 98.4 98.8 Pulse 100 102 Resp 20 20 B/P 162/80 167/80 Pulse Ox 98 91 O2 Delivery Nasal Cannula Nasal Cannula Room Air Nasal Cannula O2 Flow Rate 2.0 3.0 3.0 11/08/16 11/08/16 11/09/16 11/09/16 23:00 23:21 03:10 03:15 Temp 98.2 97.7 98.2 97.7 Pulse 94 94 83 87 Resp 20 20 B/P 177/102 183/107 197/97 148/86 Pulse Ox 97 94 O2 Delivery Nasal Cannula Nasal Cannula 11/09/16 11/09/16 11/09/16 07:15 08:02 08:21 Temp 98.1 98.1 Pulse 84 84 Resp 18 B/P 171/98 171/98 Pulse Ox 95 98 O2 Delivery Nasal Cannula O2 Flow Rate 2.0 MEDHAT LARSON III DO Nov 09, 2016 09:27
--- NOTE | 2016-11-09 12:09 | PDOC ---
Infectious Disease Note Subjective Subjective Better today Less cough and SOA with activity + Increased Urine output Slept better A couple loose stools ROS ROS GEN: Denies fevers, chills, sweats HEENT: Denies blurred vision, sore throat CV: Denies chest pain RESP: Denies shortness of air, cough GI: Denies n/v/d NEURO: Denies confusion, dizziness MSK: Denies weakness, joint pain/swelling Vital Sign Vital Signs Vital Signs Date Time Temp Pulse Resp B/P Pulse Ox O2 Delivery O2 Flow Rate FiO2 11/09/16 11:15 98.4 95 20 150/89 96 Nasal Cannula 2.0 98.4 Physical Exam PHYSICAL EXAM GENERAL: NAD, Alert HEENT: PERRL, OC/OP NECK: Supple, no JVD, no LN LUNGS: Clear HEART: S1S2, no gallop, no murmur ABD: Soft, NT, no organomegaly, no rebound EXT: No edema, no cyanosis [employer]: Alert, oriented x 3, no focal neurologic deficit SKIN: No rash IV: ok Labs Lab Laboratory Tests Test 11/08/16 14:00 11/08/16 17:34 11/08/16 20:25 11/09/16 03:25 Influenza Type A Antigen Negative (NEGATIVE) Influenza Type B Antigen Negative (NEGATIVE) Glucose (Fingerstick) 199mg/dL (70-99) 299mg/dL (70-99) Sodium Level 146mmol/L (136-145) Potassium Level 4.0mmol/L (3.5-5.1) Chloride Level 109mmol/L (98-107) Carbon Dioxide Level 27mmol/L (21-32) Anion Gap 10 (6-14) Blood Urea Nitrogen 18mg/dL (7-20) Creatinine 1.3mg/dL (0.6-1.0) Estimated GFR (Cockcroft-Gault) 44.7 Glucose Level 294mg/dL (70-99) Calcium Level 8.5mg/dL (8.5-10.1) Phosphorus Level 4.3mg/dL (2.6-4.7) Magnesium Level 1.9mg/dL (1.8-2.4) Albumin 2.9g/dL (3.4-5.0) Test 11/09/16 07:39 11/09/16 10:56 Glucose (Fingerstick) 186mg/dL (70-99) 220mg/dL (70-99) Objective Assessment Fever - ? viral given leukopenia and Resp symptoms - spiked yesterday. Procalcitonin nml Leukopenia. improved - on steroids Resp failure - ? Fluid BIGG Hypotension Hypoxia - Asthma Change in MS ? sec to meds Recent hysterectomy Recent UTI Plan Plan of Care Blood cults times 2 D/c Vanc Add zyvox Cont Zosyn Cont Probiotics F/u labs Steroids supportive care LEODAN SOTELO MD Nov 09, 2016 12:09
--- NOTE | 2016-11-09 13:34 | PDOC ---
PULMONARY PROGRESS NOTES Subjective slowing improving Vitals Vital Signs Date Time Temp Pulse Resp B/P Pulse Ox O2 Delivery O2 Flow Rate FiO2 11/09/16 11:15 98.4 95 20 150/89 96 Nasal Cannula 2.0 98.4 ROS: No Nausea, No Chest Pain, No Abdominal Pain, No Increase Cough General: Alert, No acute distress HEENT: Other (nc ar peerl, throat nose clear) Lungs: Wheezing (resolved) Cardiovascular: S1, S2 Abdomen: Soft, Non-tender Neuro Exam: Alert Extremities: Other Skin: Warm, Dry Labs Laboratory Tests Test 11/07/16 16:45 11/07/16 20:37 11/08/16 06:30 11/08/16 07:56 Glucose (Fingerstick) 291mg/dL (70-99) 326mg/dL (70-99) 284mg/dL (70-99) White Blood Count 10.0x10^3/uL (4.0-11.0) Red Blood Count 3.77x10^6/uL (3.50-5.40) Hemoglobin 9.3g/dL (12.0-15.5) Hematocrit 30.5% (36.0-47.0) Mean Corpuscular Volume 81fL (79-100) Mean Corpuscular Hemoglobin 25pg (25-35) Mean Corpuscular Hemoglobin Concent 30g/dL (31-37) Red Cell Distribution Width 19.8% (11.5-14.5) Platelet Count 375x10^3/uL (140-400) Neutrophils (%) (Auto) 80% (31-73) Lymphocytes (%) (Auto) 12% (24-48) Monocytes (%) (Auto) 7% (0-9) Eosinophils (%) (Auto) 0% (0-3) Basophils (%) (Auto) 1% (0-3) Neutrophils # (Auto) 8.1x10^3uL (1.8-7.7) Lymphocytes # (Auto) 1.2x10^3/uL (1.0-4.8) Monocytes # (Auto) 0.7x10^3/uL (0.0-1.1) Eosinophils # (Auto) 0.0x10^3/uL (0.0-0.7) Basophils # (Auto) 0.0x10^3/uL (0.0-0.2) Sodium Level 145mmol/L (136-145) Potassium Level 3.4mmol/L (3.5-5.1) Chloride Level 108mmol/L (98-107) Carbon Dioxide Level 25mmol/L (21-32) Anion Gap 12 (6-14) Blood Urea Nitrogen 17mg/dL (7-20) Creatinine 1.5mg/dL (0.6-1.0) Estimated GFR (Cockcroft-Gault) 37.9 Glucose Level 304mg/dL (70-99) Calcium Level 8.8mg/dL (8.5-10.1) Phosphorus Level 2.0mg/dL (2.6-4.7) Magnesium Level 1.7mg/dL (1.8-2.4) Albumin 2.9g/dL (3.4-5.0) Procalcitonin < 0.10ng/mL (0.00-0.10) Test 11/08/16 10:56 11/08/16 14:00 11/08/16 17:34 11/08/16 20:25 Glucose (Fingerstick) 237mg/dL (70-99) 199mg/dL (70-99) 299mg/dL (70-99) Influenza Type A Antigen Negative (NEGATIVE) Influenza Type B Antigen Negative (NEGATIVE) Test 11/09/16 03:25 11/09/16 07:39 11/09/16 10:56 Sodium Level 146mmol/L (136-145) Potassium Level 4.0mmol/L (3.5-5.1) Chloride Level 109mmol/L (98-107) Carbon Dioxide Level 27mmol/L (21-32) Anion Gap 10 (6-14) Blood Urea Nitrogen 18mg/dL (7-20) Creatinine 1.3mg/dL (0.6-1.0) Estimated GFR (Cockcroft-Gault) 44.7 Glucose Level 294mg/dL (70-99) Calcium Level 8.5mg/dL (8.5-10.1) Phosphorus Level 4.3mg/dL (2.6-4.7) Magnesium Level 1.9mg/dL (1.8-2.4) Albumin 2.9g/dL (3.4-5.0) Glucose (Fingerstick) 186mg/dL (70-99) 220mg/dL (70-99) Laboratory Tests Test 11/08/16 14:00 11/08/16 17:34 11/08/16 20:25 11/09/16 03:25 Influenza Type A Antigen Negative (NEGATIVE) Influenza Type B Antigen Negative (NEGATIVE) Glucose (Fingerstick) 199mg/dL (70-99) 299mg/dL (70-99) Sodium Level 146mmol/L (136-145) Potassium Level 4.0mmol/L (3.5-5.1) Chloride Level 109mmol/L (98-107) Carbon Dioxide Level 27mmol/L (21-32) Anion Gap 10 (6-14) Blood Urea Nitrogen 18mg/dL (7-20) Creatinine 1.3mg/dL (0.6-1.0) Estimated GFR (Cockcroft-Gault) 44.7 Glucose Level 294mg/dL (70-99) Calcium Level 8.5mg/dL (8.5-10.1) Phosphorus Level 4.3mg/dL (2.6-4.7) Magnesium Level 1.9mg/dL (1.8-2.4) Albumin 2.9g/dL (3.4-5.0) Test 11/09/16 07:39 11/09/16 10:56 Glucose (Fingerstick) 186mg/dL (70-99) 220mg/dL (70-99) Medications Active Scripts Medications Dose Route/Sig Days Date Category Aspirin Ec (Aspirin) 81 Mg Tablet.dr 81 Mg PO DAILY 10/30/16 Reported Nystatin 15 Gm Cream..g. 1 [place] TP BID 10 08/08/16 Rx Ambien (Zolpidem Tartrate) 5 Mg Tablet 5 Mg PO PRN QHS PRN 08/08/16 Rx [place] 5-325 Tablet (Acetaminophen/Hydrocodone Bitart) 1 Each Tablet 1-2 Tab PO Q4-6HRS 07/30/16 Rx Gabapentin 800 Mg Tablet 800 Mg PO TID 07/28/16 Reported Victoza 3-[place] (Liraglutide) 0.6 Mg/0.1 Ml Pen.injctr 1.8 Mg SQ DAILY 07/28/16 Reported Omeprazole 40 Mg Capsule.dr 40 Mg PO DAILY 07/28/16 Reported Cyclobenzaprine Hcl 10 Mg Tablet 10 Mg PO TID 07/28/16 Reported Iron (Ferrous Sulfate) 325 Mg Tablet 325 Mg PO DAILY 07/28/16 Reported Valium (Diazepam) 5 Mg Tablet 5 Mg PO DAILY 07/28/16 Reported Lexapro (Escitalopram Oxalate) 5 Mg Tablet 5 Mg PO DAILY 07/28/16 Reported Fexofenadine Hcl 180 Mg Tablet 180 Mg PO DAILY 07/28/16 Reported Albuterol Sulfate Conc Neb Soln (Albuterol Sulfate) 2.5 Mg/0.5 Ml Vial.neb 2.5 Mg NEB Q4HRS PRN 07/28/16 Reported Simvastatin 40 Mg Tablet 40 Mg PO HS 07/28/16 Reported Diltiazem 24HR Cd (Diltiazem Hcl) 120 Mg Cap.er.24h 120 Mg PO DAILY 07/28/16 Reported Symbicort 160-4.5 Mcg Inhaler (Budesonide/Formoterol Fumarate) 10.2 Gm Hfa.aer.ad 2 Puff IH BID 07/28/16 Reported Novolog (Insulin Aspart) 100 Unit/1 Ml Cartridge 27 Unit SQ TIDAC 10/02/14 Reported Lantus (Insulin Glargine,Hum.rec.anlog) 100 Unit/1 Ml Vial 70 Unit SQ HS 10/02/[address] reviewed, 1. Mild bibasilar atelectasis. 2. Hepatomegaly with hepatic steatosis. 3. Tiny gas bubbles related to the anterior abdominal wall at the mid pelvic level presumably on a postsurgical basis. There is adjacent streaky inflammation in the subcutaneous fat and within the pelvis, without evidence of a discrete abscess. Impression . 1. Pneumonia Clinically improved ,now acute CHF (improved 11/08 cxr) 2. Acute exacerbation of asthma. 3. Chronic atrial fibrillation. 4. Sepsis POA with hypotension,resolved 5. Met and toxic encephalopathy, resolved 6. Suspect ABI 7. CDK Plan . DIURESE PRN Antibx PER ID NEBS AVOID SEDATION PSG OUT PT REPEAT CXR 11/08 IMPROVED CHF SHANE SULLIVAN MD Nov 09, 2016 13:34
[2016-11-09] MEDS: SIMVASTATIN 40 MG TABLET. PO SCH (20:47)
[2016-11-09] MEDS: LINEZOLID 600 MG TABLET PO SCH (20:47)
[2016-11-09] MEDS: INSULIN DETEMIR 300 UNITS/3 ML INSULN.PEN. SQ SCH (20:53)
[2016-11-10 03:00] VITALS: BP 150/93
[2016-11-10] MEDS: PIPERACILLIN/TAZOBACTAM 3.375 GM in IV NORMAL SALINE 50ML 50 ML IV SCH ×2 (06:32→12:28)
[2016-11-10] MEDS: PANTOPRAZOLE 40 MG TABLET. PO SCH (06:32)
[2016-11-10] MEDS: HEPARIN PF for SUB-Q USE 5,000 UNIT/0.5 ML VIAL. SQ SCH (06:41)
[2016-11-10 06:46] LABS: ALBUMIN 2.9 g/dL (3.4-5.0); CALCIUM 8.9 mg/dL (8.5-10.1); CREATININE 1.4 mg/dL (0.6-1.0); PHOSPHORUS 3.1 mg/dL (2.6-4.7); POTASSIUM 3.6 mmol/L (3.5-5.1)
[2016-11-10 06:50] LABS: BASO % 0 % (0-3); EOS % 0 % (0-3); HEMATOCRIT 30.2 % (36.0-47.0); HEMOGLOBIN 9.5 g/dL (12.0-15.5); LYMPH # 1.5 x10^3/uL (1.0-4.8); LYMPH % 11 % (24-48); MEAN CORPUSCULAR HEMOGLOBIN 25 pg (25-35); MEAN CORPUSCULAR HGB CONC 32 g/dL (31-37); MEAN CORPUSCULAR VOLUME 79 fL (79-100); MONO % 8 % (0-9); NEUT % 81 % (31-73); PLATELET COUNT 412 x10^3/uL (140-400); RED BLOOD COUNT 3.83 x10^6/uL (3.50-5.40); RED CELL DISTRIBUTION WIDTH 21.4 % (11.5-14.5); WHITE BLOOD COUNT 13.6 x10^3/uL (4.0-11.0)
[2016-11-10 07:44] VITALS: BP 141/85
[2016-11-10] MEDS: IPRATRPIUM/ALBUTEROL 0.5/2.5MG 3 ML NEBU. NEB SCH ×2 (07:52→11:23)
[2016-11-10] MEDS: ESCITALOPRAM 10 MG TABLET. PO SCH (08:31)
[2016-11-10] MEDS: GABAPENTIN 400 MG CAPSULE. PO SCH (08:31)
[2016-11-10] MEDS: DILTIAZEM HCL 120 MG CAP.ER.24H PO SCH (08:31)
[2016-11-10] MEDS: GUAIFENESIN ER 600 MG TABLET.ER PO SCH (08:31)
[2016-11-10] MEDS: DOCUSATE SODIUM 100 MG CAPSULE PO SCH (08:31)
[2016-11-10] MEDS: CETIRIZINE HCL 10 MG TABLET PO SCH (08:31)
[2016-11-10] MEDS: FERROUS SULFATE 325 MG TABLET PO SCH (08:32)
[2016-11-10] MEDS: LACTOBACILLUS ACIDOPH & BULGAR 1 TABLET. PO SCH ×2 (08:32→12:27)
[2016-11-10] MEDS: NYSTATIN 100,000 UNIT/GM TOPICAL CREAM 15GM TUBE. TP SCH (08:32)
[2016-11-10] MEDS: LINEZOLID 600 MG TABLET PO SCH (08:32)
[2016-11-10] MEDS: POTASSIUM CHLORIDE 20 MEQ TABLET.ER. PO SCH (08:32)
[2016-11-10] MEDS: PREDNISONE 20 MG TABLET PO SCH (08:32)
[2016-11-10] MEDS: INSULIN ASPART 300 UNITS/3 ML INSULN.PEN SQ SCH ×4 (08:38→13:55)
[2016-11-10 10:49] LABS: PLT ESTIMATE INCREASED (ADEQUATE)
[2016-11-10 10:50] LABS: ANISOCYTOSIS MOD
[2016-11-10 11:03] VITALS: BP 137/81
--- NOTE | 2016-11-10 11:39 | PDOC ---
Infectious Disease Note Subjective Subjective Better today Less cough and SOA with activity + Increased Urine output Sleeping well A couple loose stools - better Ready to go home ROS ROS GEN: Denies fevers, chills, sweats HEENT: Denies blurred vision, sore throat CV: Denies chest pain RESP: Denies shortness of air, cough GI: Denies n/v/d NEURO: Denies confusion, dizziness MSK: Denies weakness, joint pain/swelling Vital Sign Vital Signs Vital Signs Date Time Temp Pulse Resp B/P Pulse Ox O2 Delivery O2 Flow Rate FiO2 11/10/16 11:23 97 Nasal Cannula 2.0 11/10/16 11:03 98.3 89 20 137/81 98.3 Physical Exam PHYSICAL EXAM GENERAL: NAD, Alert HEENT: PERRL, OC/OP clear NECK: Supple, no JVD, no LN LUNGS: mild whheze HEART: S1S2, no gallop, no murmur ABD: Soft, NT, no organomegaly, no rebound, obese EXT: No edema, no cyanosis [employer] COURT JUSTICE: Alert, oriented x 3, no focal neurologic deficit SKIN: No rash IV: ok Labs Lab Laboratory Tests Test 11/09/16 16:30 11/09/16 20:30 11/10/16 06:00 11/10/16 07:13 Glucose (Fingerstick) 409mg/dL (70-99) 467mg/dL (70-99) 286mg/dL (70-99) White Blood Count 13.6x10^3/uL (4.0-11.0) Red Blood Count 3.83x10^6/uL (3.50-5.40) Hemoglobin 9.5g/dL (12.0-15.5) Hematocrit 30.2% (36.0-47.0) Mean Corpuscular Volume 79fL (79-100) Mean Corpuscular Hemoglobin 25pg (25-35) Mean Corpuscular Hemoglobin Concent 32g/dL (31-37) Red Cell Distribution Width 21.4% (11.5-14.5) Platelet Count 412x10^3/uL (140-400) Neutrophils (%) (Auto) 81% (31-73) Lymphocytes (%) (Auto) 11% (24-48) Monocytes (%) (Auto) 8% (0-9) Eosinophils (%) (Auto) 0% (0-3) Basophils (%) (Auto) 0% (0-3) Neutrophils # (Auto) 10.9x10^3uL (1.8-7.7) Lymphocytes # (Auto) 1.5x10^3/uL (1.0-4.8) Monocytes # (Auto) 1.0x10^3/uL (0.0-1.1) Eosinophils # (Auto) 0.0x10^3/uL (0.0-0.7) Basophils # (Auto) 0.0x10^3/uL (0.0-0.2) Segmented Neutrophils % 81% (35-66) Band Neutrophils % 1% (0-9) Lymphocytes % 14% (24-48) Monocytes % 4% (0-10) Platelet Estimate Increased (ADEQUATE) Anisocytosis Mod Sodium Level 147mmol/L (136-145) Potassium Level 3.6mmol/L (3.5-5.1) Chloride Level 108mmol/L (98-107) Carbon Dioxide Level 30mmol/L (21-32) Anion Gap 9 (6-14) Blood Urea Nitrogen 17mg/dL (7-20) Creatinine 1.4mg/dL (0.6-1.0) Estimated GFR (Cockcroft-Gault) 41.0 Glucose Level 264mg/dL (70-99) Calcium Level 8.9mg/dL (8.5-10.1) Phosphorus Level 3.1mg/dL (2.6-4.7) Magnesium Level 1.8mg/dL (1.8-2.4) Albumin 2.9g/dL (3.4-5.0) Test 11/10/16 10:40 Glucose (Fingerstick) 217mg/dL (70-99) Objective Assessment Fever - ? viral given leukopenia and Resp symptoms - stable overnight. Procalcitonin nml Leukopenia. improved - on steroids Resp failure - ? Fluid, improving BIGG Hypotension Hypoxia - Asthma Change in MS ? sec to meds Recent hysterectomy Recent UTI Plan Plan of Care OK for discharge Blood cults times 2, no growth after 1 day, continue to monitor D/c Vanc Cont. zyvox as PO outpatient 5 days D/C Zosyn Cont Probiotics LEODAN SOTELO MD Nov 10, 2016 11:39
--- NOTE | 2016-11-10 11:48 | PDOC ---
PROGRESS NOTES Chief Complaint Chief Complaint 1. Bronchitis 2. Asthma exacerbation 3. Afib 4. Sepsis 5. Encephalopathy 6. BIGG 7. Hypernatremia 8. DM 9. Anemia 10. Depression 11. Anxiety History of Present Illness History of Present Illness Pt awake, alert, and oriented when seen and examined this AM. Pt states that she is "feeling better" and feels like she is "getting better". Pt states that she would like to go home when possible. Pt denies any current CP or SOA. Pt does have complaint of slight cough. No fevers or chills. VSS- All questions and concerns answered and addressed. Vitals Vitals Vital Signs Date Time Temp Pulse Resp B/P Pulse Ox O2 Delivery O2 Flow Rate FiO2 11/10/16 11:23 97 Nasal Cannula 2.0 11/10/16 11:03 98.3 89 20 137/81 98.3 Physical Exam General: Alert, Oriented X3, Cooperative, No acute distress Heart: Regular rate, Normal S1, Normal S2, No murmurs Lungs: Wheezing (resolved) Abdomen: Normal bowel sounds, Soft, No tenderness Extremities: No clubbing, No cyanosis, No edema Skin: No rashes, No breakdown Labs LABS Laboratory Tests Test 11/09/16 16:30 11/09/16 20:30 11/10/16 06:00 11/10/16 07:13 Glucose (Fingerstick) 409mg/dL (70-99) 467mg/dL (70-99) 286mg/dL (70-99) White Blood Count 13.6x10^3/uL (4.0-11.0) Red Blood Count 3.83x10^6/uL (3.50-5.40) Hemoglobin 9.5g/dL (12.0-15.5) Hematocrit 30.2% (36.0-47.0) Mean Corpuscular Volume 79fL (79-100) Mean Corpuscular Hemoglobin 25pg (25-35) Mean Corpuscular Hemoglobin Concent 32g/dL (31-37) Red Cell Distribution Width 21.4% (11.5-14.5) Platelet Count 412x10^3/uL (140-400) Neutrophils (%) (Auto) 81% (31-73) Lymphocytes (%) (Auto) 11% (24-48) Monocytes (%) (Auto) 8% (0-9) Eosinophils (%) (Auto) 0% (0-3) Basophils (%) (Auto) 0% (0-3) Neutrophils # (Auto) 10.9x10^3uL (1.8-7.7) Lymphocytes # (Auto) 1.5x10^3/uL (1.0-4.8) Monocytes # (Auto) 1.0x10^3/uL (0.0-1.1) Eosinophils # (Auto) 0.0x10^3/uL (0.0-0.7) Basophils # (Auto) 0.0x10^3/uL (0.0-0.2) Segmented Neutrophils % 81% (35-66) Band Neutrophils % 1% (0-9) Lymphocytes % 14% (24-48) Monocytes % 4% (0-10) Platelet Estimate Increased (ADEQUATE) Anisocytosis Mod Sodium Level 147mmol/L (136-145) Potassium Level 3.6mmol/L (3.5-5.1) Chloride Level 108mmol/L (98-107) Carbon Dioxide Level 30mmol/L (21-32) Anion Gap 9 (6-14) Blood Urea Nitrogen 17mg/dL (7-20) Creatinine 1.4mg/dL (0.6-1.0) Estimated GFR (Cockcroft-Gault) 41.0 Glucose Level 264mg/dL (70-99) Calcium Level 8.9mg/dL (8.5-10.1) Phosphorus Level 3.1mg/dL (2.6-4.7) Magnesium Level 1.8mg/dL (1.8-2.4) Albumin 2.9g/dL (3.4-5.0) Test 11/10/16 10:40 Glucose (Fingerstick) 217mg/dL (70-99) Review of Systems Review of Systems Patient complaint of hunger Patient complaint of fatigue Assessment and Plan Assessmemt and Plan Problems Medical Problems: (1) Healthcare-associated pneumonia Status: Acute (2) Hyperglycemia Status: Acute Assessment: 1. Bronchitis 2. Asthma exacerbation 3. Afib 4. Sepsis 5. Encephalopathy 6. BIGG 7. Hypernatremia 8. DM 9. Anemia 10. Depression 11. Anxiety Plan: Continue to monitor the patient per floor protocol Continue daily labs-CBC, BMP, BUN and Cr Daily PTOT Appreciate all subspecialty input and recommendations Possible DC later this afternoon -DC with Augmentin, Medrol dose pack, and Combivent LAVELL RN Problems: Comment Review of Relevant I have reviewed the following items emery (where applicable) has been applied. Labs Laboratory Tests Test 11/08/16 14:00 11/08/16 17:34 11/08/16 20:25 11/09/16 03:25 Influenza Type A Antigen Negative (NEGATIVE) Influenza Type B Antigen Negative (NEGATIVE) Glucose (Fingerstick) 199mg/dL (70-99) 299mg/dL (70-99) Sodium Level 146mmol/L (136-145) Potassium Level 4.0mmol/L (3.5-5.1) Chloride Level 109mmol/L (98-107) Carbon Dioxide Level 27mmol/L (21-32) Anion Gap 10 (6-14) Blood Urea Nitrogen 18mg/dL (7-20) Creatinine 1.3mg/dL (0.6-1.0) Estimated GFR (Cockcroft-Gault) 44.7 Glucose Level 294mg/dL (70-99) Calcium Level 8.5mg/dL (8.5-10.1) Phosphorus Level 4.3mg/dL (2.6-4.7) Magnesium Level 1.9mg/dL (1.8-2.4) Albumin 2.9g/dL (3.4-5.0) HIV-1 Antibody Non reactive (Non Reactive) Test 11/09/16 07:39 11/09/16 10:56 11/09/16 16:30 11/09/16 20:30 Glucose (Fingerstick) 186mg/dL (70-99) 220mg/dL (70-99) 409mg/dL (70-99) 467mg/dL (70-99) Test 11/10/16 06:00 11/10/16 07:13 11/10/16 10:40 White Blood Count 13.6x10^3/uL (4.0-11.0) Red Blood Count 3.83x10^6/uL (3.50-5.40) Hemoglobin 9.5g/dL (12.0-15.5) Hematocrit 30.2% (36.0-47.0) Mean Corpuscular Volume 79fL (79-100) Mean Corpuscular Hemoglobin 25pg (25-35) Mean Corpuscular Hemoglobin Concent 32g/dL (31-37) Red Cell Distribution Width 21.4% (11.5-14.5) Platelet Count 412x10^3/uL (140-400) Neutrophils (%) (Auto) 81% (31-73) Lymphocytes (%) (Auto) 11% (24-48) Monocytes (%) (Auto) 8% (0-9) Eosinophils (%) (Auto) 0% (0-3) Basophils (%) (Auto) 0% (0-3) Neutrophils # (Auto) 10.9x10^3uL (1.8-7.7) Lymphocytes # (Auto) 1.5x10^3/uL (1.0-4.8) Monocytes # (Auto) 1.0x10^3/uL (0.0-1.1) Eosinophils # (Auto) 0.0x10^3/uL (0.0-0.7) Basophils # (Auto) 0.0x10^3/uL (0.0-0.2) Segmented Neutrophils % 81% (35-66) Band Neutrophils % 1% (0-9) Lymphocytes % 14% (24-48) Monocytes % 4% (0-10) Platelet Estimate Increased (ADEQUATE) Anisocytosis Mod Sodium Level 147mmol/L (136-145) Potassium Level 3.6mmol/L (3.5-5.1) Chloride Level 108mmol/L (98-107) Carbon Dioxide Level 30mmol/L (21-32) Anion Gap 9 (6-14) Blood Urea Nitrogen 17mg/dL (7-20) Creatinine 1.4mg/dL (0.6-1.0) Estimated GFR (Cockcroft-Gault) 41.0 Glucose Level 264mg/dL (70-99) Calcium Level 8.9mg/dL (8.5-10.1) Phosphorus Level 3.1mg/dL (2.6-4.7) Magnesium Level 1.8mg/dL (1.8-2.4) Albumin 2.9g/dL (3.4-5.0) Glucose (Fingerstick) 286mg/dL (70-99) 217mg/dL (70-99) Laboratory Tests Test 11/09/16 16:30 11/09/16 20:30 11/10/16 06:00 11/10/16 07:13 Glucose (Fingerstick) 409mg/dL (70-99) 467mg/dL (70-99) 286mg/dL (70-99) White Blood Count 13.6x10^3/uL (4.0-11.0) Red Blood Count 3.83x10^6/uL (3.50-5.40) Hemoglobin 9.5g/dL (12.0-15.5) Hematocrit 30.2% (36.0-47.0) Mean Corpuscular Volume 79fL (79-100) Mean Corpuscular Hemoglobin 25pg (25-35) Mean Corpuscular Hemoglobin Concent 32g/dL (31-37) Red Cell Distribution Width 21.4% (11.5-14.5) Platelet Count 412x10^3/uL (140-400) Neutrophils (%) (Auto) 81% (31-73) Lymphocytes (%) (Auto) 11% (24-48) Monocytes (%) (Auto) 8% (0-9) Eosinophils (%) (Auto) 0% (0-3) Basophils (%) (Auto) 0% (0-3) Neutrophils # (Auto) 10.9x10^3uL (1.8-7.7) Lymphocytes # (Auto) 1.5x10^3/uL (1.0-4.8) Monocytes # (Auto) 1.0x10^3/uL (0.0-1.1) Eosinophils # (Auto) 0.0x10^3/uL (0.0-0.7) Basophils # (Auto) 0.0x10^3/uL (0.0-0.2) Segmented Neutrophils % 81% (35-66) Band Neutrophils % 1% (0-9) Lymphocytes % 14% (24-48) Monocytes % 4% (0-10) Platelet Estimate Increased (ADEQUATE) Anisocytosis Mod Sodium Level 147mmol/L (136-145) Potassium Level 3.6mmol/L (3.5-5.1) Chloride Level 108mmol/L (98-107) Carbon Dioxide Level 30mmol/L (21-32) Anion Gap 9 (6-14) Blood Urea Nitrogen 17mg/dL (7-20) Creatinine 1.4mg/dL (0.6-1.0) Estimated GFR (Cockcroft-Gault) 41.0 Glucose Level 264mg/dL (70-99) Calcium Level 8.9mg/dL (8.5-10.1) Phosphorus Level 3.1mg/dL (2.6-4.7) Magnesium Level 1.8mg/dL (1.8-2.4) Albumin 2.9g/dL (3.4-5.0) Test 11/10/16 10:40 Glucose (Fingerstick) 217mg/dL (70-99) Microbiology 11/08/16 Blood Culture - Preliminary, Resulted NO GROWTH AFTER 1 DAY 11/06/16 Urine Culture - Final, Complete 11/06/16 Urine Culture Result 1 (ERWIN) - Final, Complete Medications Current Medications Sodium Chloride 10 ml 10 ml QSHIFT PRN IV AFTER MEDS AND BLOOD DRAWS; Start 09/02 at 23:30 Sodium Chloride (Iv Sodium Chloride 0.9% 500ml Bag) 500 ml @ 500 mls/hr 1X ONCE IV Last administered on 10/29/16 23:43; Start 10/29/16 at 23:45; Stop at 00:44; Status DC Albuterol/ Ipratropium 3 ml 3 ml 1X ONCE NEB Last administered on 10/30/16 00 :31; Start 10/30/16 at 00:15; Stop 10/30/16 at 00:57; Status DC Piperacillin Sod/ Tazobactam Sod 3.375 gm/Sodium Chloride 50 ml @ 100 mls/hr 1X ONCE IV Last administered on 10/30/16 02:38; Start 10/30/16 at 01:00; Stop 10/30/16 at 01:29; Status DC Ciprofloxacin Lactate (Cipro 400mg Premix) 200 ml @ 200 mls/hr 1X ONCE IV Last administered on 10/30/16 03:35; Start 10/30/16 at 01:30; Stop 10/30/16 at 02:29; Status DC Vancomycin HCl (Vanco Per Pharmacy) 1 each PRN DAILY PRN MC SEE COMMENTS Last administered on 11/01/16 14:32; Start 10/30/16 at 00:30; Stop 11/02/16 at 07:27 ; Status DC Albuterol/ Ipratropium (Duoneb) 3 ml RTQID NEB Last administered on 10/31/16 07:06; Start 10/30/16 at 08:00; Stop 10/31/16 at 07:59; Status DC Piperacillin Sod/ Tazobactam Sod 1 each 1 each PRN DAILY PRN MC SEE COMMENTS; Start 10/30/16 at 00:30; Stop 11/01/16 at 13:16; Status DC Ciprofloxacin Lactate (Cipro 400mg Premix) 200 ml @ 200 mls/hr Q12HR IV Last administered on 11/01/16 21:38; Start 10/30/16 at 21:00; Stop 11/02/16 at 07:27 ; Status DC Famotidine (Pepcid) 20 mg BID PO Last administered on 10/30/16 21:33; Start at 02:00; Stop 11/01/16 at 09:19; Status DC Insulin Human Regular 10 unit 10 unit 1X ONCE IV Last administered on 02:33; Start 10/30/16 at 01:00; Stop 10/30/16 at 01:01; Status DC Vancomycin HCl 2 gm/Sodium Chloride 500 ml @ 250 mls/hr 1X ONCE IV Last administered on 10/30/16 04:56; Start 10/30/16 at 05:00; Stop 10/30/16 at 06:59 ; Status DC Piperacillin Sod/ Tazobactam Sod/ Sodium Chloride (Zosyn/Iv Sodium Chloride 0.9 % 100ml) 100 ml @ 200 mls/hr Q6HRS IV Last administered on 11/05/16 11:26; Start 10/30/16 at 08:00; Stop 11/05/16 at 14:37; Status DC Promethazine HCl/ Codeine (Phenergan With Codeine) 5 ml PRN Q4HRS PRN PO COUGH Last administered on 11/04/16 21:53; Start 10/30/16 at 10:15 Acetaminophen/ Hydrocodone Bitart 1 tab 1 tab PRN Q4HRS PRN PO PAIN Last administered on 10/30/16 10:30; Start 10/30/16 at 10:15; Stop 10/30/16 at 11:31 ; Status DC Vancomycin HCl/ Sodium Chloride (Iv Sodium Chloride 0.9% 500ml Bag) 500 ml @ 250 mls/hr Q12H IV Last administered on 11/02/16 04:42; Start 10/30/16 at 17: 00; Stop 11/02/16 at 07:27; Status DC Vancomycin HCl 1 each 1X ONCE MC Last administered on 10/31/16 16:30; Start 10/31/16 at 16:30; Stop 10/31/16 at 16:31; Status DC Cyclobenzaprine HCl (Flexeril) 10 mg TID PO Last administered on 10/30/16 21: 33; Start 10/30/16 at 14:00; Stop 11/01/16 at 10:21; Status DC Diazepam (Valium) 5 mg DAILY PO Last administered on 11/01/16 09:00; Start at 12:30; Stop 11/01/16 at 10:21; Status DC Diltiazem HCl (Cardizem 24hr Cd) 120 mg DAILY PO Last administered on 09:04; Start 10/30/16 at 12:30; Stop 11/08/16 at 12:18; Status DC Escitalopram Oxalate (Lexapro) 5 mg DAILY PO Last administered on 11/03/16 08: 03; Start 10/30/16 at 12:30; Stop 11/03/16 at 18:48; Status DC Ferrous Sulfate (Feosol) 325 mg DAILY PO Last administered on 11/10/16 08:32; Start 10/30/16 at 12:30 Acetaminophen/ Hydrocodone Bitart (Lortab 5/325) 1 tab PRN QID PRN PO MODERATE PAIN Last administered on 11/06/16 06:00; Start 10/30/16 at 11:30 Nystatin (Mycostatin) 1 vianney BID TP Last administered on 11/10/16 08:32; Start 10/30/16 at 12:30 Simvastatin (Zocor) 40 mg HS PO Last administered on 11/09/16 20:47; Start at 21:00 Zolpidem Tartrate (Ambien) 5 mg PRN QHS PRN PO INSOMNIA Last administered on 20:44; Start 10/30/16 at 11:30; Stop 11/04/16 at 12:44; Status DC Albuterol Sulfate (Ventolin Neb Soln) 2.5 mg PRN Q4HRS PRN NEB SHORTNESS OF BREATH Last administered on 11/06/16 16:45; Start 10/30/16 at 11:45 Budesonide (Pulmicort) 0.5 mg RTBID NEB Last administered on 11/06/16 08:09; Start 10/30/16 at 20:00; Stop 11/06/16 at 19:05; Status DC Non-Formulary Medication 500 mg QID PO ; Start 10/30/16 at 13:00; Stop 10/30/16 at 13:00; Status DC Cetirizine HCl (Zyrtec) 10 mg DAILY PO Last administered on 11/10/16 08:31; Start 10/30/16 at 12:30 Gabapentin (Neurontin) 800 mg TID PO Last administered on 11/10/16 08:31; Start 10/30/16 at 14:00 Insulin Aspart (Novolog) 27 units TIDAC SQ Last administered on 10/31/16 13:49 ; Start 10/30/16 at 12:00; Stop 11/01/16 at 10:21; Status DC Insulin Detemir (Levemir) 70 units QHS SQ Last administered on 10/31/16 21:10 ; Start 10/30/16 at 21:00; Stop 11/01/16 at 13:13; Status DC Non-Formulary Medication 1.8 mg DAILY SQ ; Start 10/31/16 at 09:00; Stop at 07:09; Status DC Pantoprazole Sodium (Protonix) 40 mg DAILYAC PO Last administered on 11/10/16 06:32; Start 10/30/16 at 12:30 Aspirin (Ecotrin) 81 mg DAILYWBKFT PO ; Start 10/30/16 at 12:30; Stop 10/31/16 at 10:40; Status DC Acetaminophen/ Hydrocodone Bitart (Lortab 5/325) 2 tab PRN QID PRN PO SEVERE PAIN Last administered on 11/06/16 23:07; Start 10/30/16 at 11:45 Lisinopril (Prinivil) 10 mg DAILY PO Last administered on 10/30/16 17:13; Start 10/30/16 at 17:00; Stop 10/31/16 at 10:37; Status DC Throat Lozenges 1 abena 1 abena PRN Q2HRS PRN PO SORE THROAT Last administered on 13:01; Start 10/30/16 at 18:15 Sodium Chloride (Iv Sodium Chloride 0.9% 500ml Bag) 500 ml @ 500 mls/hr 1X ONCE IV Last administered on 10/31/16 08:00; Start 10/31/16 at 08:30; Stop at 09:29; Status DC Iohexol (Omnipaque 240 Mg/ml) 30 ml 1X ONCE PO Last administered on 10/31/16 09:00; Start 10/31/16 at 09:00; Stop 10/31/16 at 09:03; Status DC Info 1 each 1 each PRN DAILY PRN MC SEE COMMENTS; Start 10/31/16 at 09:15; Stop 11/02/16 at 09:14; Status DC Sodium Chloride (Iv Sodium Chloride 0.45%) 1,000 ml @ 125 mls/hr 1X ONCE IV Last administered on 10/31/16 11:24; Start 10/31/16 at 11:00; Stop 10/31/16 at 19:00; Status DC Ondansetron HCl (Zofran) 4 mg STK-MED ONCE .ROUTE ; Start 11/01/16 at 09:25; Stop 11/01/16 at 09:26; Status DC Insulin Aspart (Novolog) 20 units TIDAC SQ Last administered on 11/02/16 13:03 ; Start 11/01/16 at 11:30; Stop 11/02/16 at 14:43; Status DC Alprazolam 0.25 mg 0.25 mg PRN Q8HRS PRN PO ANXIETY / AGITATION Last administered on 11/03/16 20:44; Start 11/01/16 at 10:30 Sodium Chloride (Iv Sodium Chloride 0.45%) 1,000 ml @ 75 mls/hr 1X ONCE IV Last administered on 11/01/16 13:57; Start 11/01/16 at 10:30; Stop 11/01/16 at 23:49; Status DC Insulin Detemir (Levemir) 60 units QHS SQ ; Start 11/01/16 at 21:00; Stop at 14:43; Status DC Piperacillin Sod/ Tazobactam Sod (Zosyn Per Pharmacy) 1 each PRN DAILY PRN MC SEE COMMENTS; Start 11/01/16 at 13:15; Stop 11/01/16 at 13:16; Status DC Guaifenesin (Mucinex) 600 mg BID PO Last administered on 11/10/16 08:31; Start 11/01/16 at 14:00 Guaifenesin (Robitussin) 200 mg PRN Q4HRS PRN PO COUGH Last administered on 13:00; Start 11/01/16 at 13:15 Ondansetron HCl (Zofran) 4 mg STK-MED ONCE .ROUTE ; Start 11/01/16 at 09:25; Stop 11/02/16 at 08:23; Status DC Insulin Aspart (Novolog) 15 units TIDAC SQ Last administered on 11/03/16 17:16 ; Start 11/02/16 at 16:30; Stop 11/03/16 at 20:43; Status DC Insulin Detemir 40 units 40 units QHS SQ Last administered on 11/03/16 20:50; Start 11/02/16 at 21:00; Stop 11/04/16 at 06:31; Status DC Sodium Chloride 1,000 ml @ 75 mls/hr [id number] IV Last administered on 04:00; Start 11/02/16 at 14:45; Stop 11/06/16 at 10:58; Status DC Iron Sucrose/ Sodium Chloride (Venofer/Iv Sodium Chloride 0.9% 250ml) 270 ml @ 90 mls/hr DAILY IV Last administered on 11/04/16 11:04; Start 11/02/16 at 15: 00; Stop 11/04/16 at 12:39; Status DC Methylprednisolone Sodium Succinate (Solu-Medrol 125mg Vial) 60 mg Q12HR IV Last administered on 11/04/16 21:44; Start 11/03/16 at 10:00; Stop 11/05/16 at 08:09; Status DC Escitalopram Oxalate (Lexapro) 5 mg DAILY PO Last administered on 11/10/16 08: 31; Start 11/04/16 at 09:00 Insulin Aspart (Novolog) 0-9 UNITS TIDWMEALS SQ Last administered on 11/10/16 08:39; Start 11/04/16 at 08:00 Dextrose 12.5 gm PRN Q15MIN PRN IV SEE COMMENTS; Start 11/03/16 at 20:45 Insulin Aspart (Novolog) 10 units 1X ONCE SQ Last administered on 11/03/16 21 :42; Start 11/03/16 at 21:30; Stop 11/03/16 at 21:31; Status DC Insulin Aspart (Novolog) 10 units 1X ONCE SQ Last administered on 11/03/16 23 :35; Start 11/03/16 at 23:45; Stop 11/03/16 at 23:46; Status DC Insulin Detemir (Levemir) 50 units QHS SQ ; Start 11/04/16 at 21:00; Stop at 21:00; Status DC Heparin Sodium (Porcine) 5,000 unit Q8HRS SQ Last administered on 11/10/16 06: 41; Start 11/04/16 at 14:00 Ferrous Sulfate 325 mg 325 mg QHS PO ; Start 11/04/16 at 21:00; Stop 11/04/16 at 21:00; Status DC Iron Sucrose/ Sodium Chloride (Venofer/Iv Sodium Chloride 0.9% 250ml) 270 ml @ 90 mls/hr DAILY IV ; Start 11/05/16 at 09:00; Stop 11/04/16 at 14:59; Status UNV Insulin Detemir (Levemir) 70 units QHS SQ Last administered on 11/04/16 21:51 ; Start 11/04/16 at 21:00; Stop 11/05/16 at 18:43; Status DC Albuterol/ Ipratropium (Duoneb) 3 ml RTQID NEB Last administered on 11/06/16 12:02; Start 11/04/16 at 16:00; Stop 11/06/16 at 15:29; Status DC Insulin Aspart (Novolog) 20 units 1X ONCE SQ Last administered on 11/04/16 17 :47; Start 11/04/16 at 17:30; Stop 11/04/16 at 17:31; Status DC Labetalol HCl (Normodyne) 10 mg PRN Q2HR PRN IVP HYPERTENSION, SEE COMMENTS Last administered on 11/08/16 23:21; Start 11/04/16 at 22:45 Prednisone (Prednisone) 40 mg DAILY PO Last administered on 11/10/16 08:32; Start 11/05/16 at 09:00 Insulin Aspart (Novolog) 20 units TIDAC SQ ; Start 11/05/16 at 11:30; Stop 11/05 at 11:57; Status DC Insulin Aspart (Novolog) 27 units TIDAC SQ Last administered on 11/05/16 17:31 ; Start 11/05/16 at 12:00; Stop 11/05/16 at 18:43; Status DC Magnesium Hydroxide (Milk Of Magnesia) 2,400 mg PRN DAILY PRN PO CONSTIPATION; Start 11/05/16 at 12:15 Polyethylene Glycol (miraLAX PACKET) 17 gm PRN DAILY PRN PO CONSTIPATION; Start 11/05/16 at 12:15 Docusate Sodium (Colace) 100 mg DAILY PO Last administered on 11/10/16 08:31; Start 11/05/16 at 12:30 Amoxicillin/ Clavulanate Potassium (Augmentin 875/ 125mg) 1 tab BID PO ; Start 11/05/16 at 21:00; Stop 11/05/16 at 21:00; Status DC Lactobacillus Acidophilus (Bacid, Ashley-Bid) 1 tab TIDWMEALS PO Last administered on 11/10/16 08:32; Start 11/05/16 at 17:00 Cefpodoxime Proxetil (Vantin) 200 mg BID PO Last administered on 11/08/16 09: 08; Start 11/05/16 at 21:00; Stop 11/08/16 at 11:37; Status DC Insulin Aspart (Novolog) 30 units TIDAC SQ Last administered on 11/10/16 08:38 ; Start 11/06/16 at 07:30 Insulin Detemir (Levemir) 80 units QHS SQ Last administered on 11/09/16 20:53 ; Start 11/05/16 at 21:00 Insulin Aspart 15 units 15 units 1X ONCE SQ Last administered on 11/05/16 23: 27; Start 11/05/16 at 23:15; Stop 11/05/16 at 23:16; Status DC Potassium Chloride 40 meq/ Sodium Chloride 1,020 ml @ 75 mls/hr [id number] IV Last administered on 11/07/16 01:34; Start 11/06/16 at 10:56; Stop 11/07/16 at 14:07; Status DC Magnesium Sulfate/ Dextrose (Magnesium Sulfate PREMIX 2GM) 50 ml @ 25 mls/hr PRN DAILY PRN IV for Mag < 1.7 on am labs; Start 11/06/16 at 11:00 Potassium Chloride (Klor-Con) 20 meq 1X ONCE PO Last administered on 15:16; Start 11/06/16 at 14:15; Stop 11/06/16 at 14:16; Status DC Albuterol/ Ipratropium (Duoneb) 3 ml Q4HRS W/A NEB Last administered on 11:23; Start 11/06/16 at 18:00 Furosemide (Lasix) 20 mg 1X ONCE IVP Last administered on 11/06/16 21:47; Start 11/06/16 at 19:15; Stop 11/06/16 at 19:16; Status DC Insulin Aspart (Novolog) 20 units 1X ONCE SQ Last administered on 11/06/16 22 :12; Start 11/06/16 at 22:00; Stop 11/06/16 at 22:01; Status DC Potassium Chloride (Klor-Con) 20 meq DAILYWBKFT PO Last administered on 08:32; Start 11/08/16 at 08:00 Potassium Chloride (Klor-Con) 20 meq 1X ONCE PO Last administered on 17:09; Start 11/07/16 at 15:45; Stop 11/07/16 at 15:46; Status DC Vancomycin HCl 1 each 1 each PRN DAILY PRN MC SEE COMMENTS Last administered on 11/08/16 11:51; Start 11/08/16 at 11:45; Stop 11/09/16 at 12:10; Status DC Piperacillin Sod/ Tazobactam Sod 3.375 gm/Sodium Chloride 50 ml @ 100 mls/hr Q6HRS IV Last administered on 11/10/16 06:32; Start 11/08/16 at 12:00 Vancomycin HCl 2 gm/Sodium Chloride 500 ml @ 250 mls/hr 1X ONCE IV Last administered on 11/08/16 16:10; Start 11/08/16 at 13:00; Stop 11/08/16 at 14:59 ; Status DC Vancomycin HCl/ Sodium Chloride (Iv Sodium Chloride 0.9% 250ml) 250 ml @ 166.667 mls/hr Q12H ONCE IV Last administered on 11/09/16 01:29; Start at 01:00; Stop 11/09/16 at 02:29; Status DC Vancomycin HCl 1 each 1X ONCE MC ; Start 11/10/16 at 00:30; Stop 11/10/16 at 00 :30; Status DC Diltiazem HCl 240 mg 240 mg DAILY PO Last administered on 11/10/16 08:31; Start 11/09/16 at 09:00 Potassium Phosphate 13.6 mmol/Sodium Chloride 104.5333 ml @ 52.267 m... Q2H IV Last administered on 11/08/16 23:25; Start 11/08/16 at 13:00; Stop 11/08/16 at 18:59; Status DC Magnesium Sulfate/ Dextrose (Magnesium Sulfate PREMIX 1GM) 100 ml @ 100 mls/hr 1X ONCE IV Last administered on 11/08/16 14:47; Start 11/08/16 at 12:15; Stop 11/08/16 at 13:14; Status DC Linezolid (Zyvox) 600 mg BID PO Last administered on 11/10/16 08:32; Start at 21:00 Active Scripts Active Nystatin 15 Gm Cream..g. 1 Vianney TP BID 10 Days Ambien (Zolpidem Tartrate) 5 Mg Tablet 5 Mg PO PRN QHS PRN Tamiment 5-325 Tablet (Acetaminophen/Hydrocodone Bitart) 1 Each Tablet 1-2 Tab PO Q4-6HRS Reported Aspirin Ec (Aspirin) 81 Mg Tablet.dr 81 Mg PO DAILY Gabapentin 800 Mg Tablet 800 Mg PO TID Victoza 3-[place] (Liraglutide) 0.6 Mg/0.1 Ml Pen.injctr 1.8 Mg SQ DAILY Omeprazole 40 Mg Capsule.dr 40 Mg PO DAILY Cyclobenzaprine Hcl 10 Mg Tablet 10 Mg PO TID Iron (Ferrous Sulfate) 325 Mg Tablet 325 Mg PO DAILY Valium (Diazepam) 5 Mg Tablet 5 Mg PO DAILY Lexapro (Escitalopram Oxalate) 5 Mg Tablet 5 Mg PO DAILY Fexofenadine Hcl 180 Mg Tablet 180 Mg PO DAILY Albuterol Sulfate Conc Neb Soln (Albuterol Sulfate) 2.5 Mg/0.5 Ml Vial.neb 2.5 Mg NEB Q4HRS PRN Simvastatin 40 Mg Tablet 40 Mg PO HS Diltiazem 24HR Cd (Diltiazem Hcl) 120 Mg Cap.er.24h 120 Mg PO DAILY Symbicort 160-4.5 Mcg Inhaler (Budesonide/Formoterol Fumarate) 10.2 Gm Hfa.aer.ad 2 Puff IH BID Novolog (Insulin Aspart) 100 Unit/1 Ml Cartridge 27 Unit SQ TIDAC Lantus (Insulin Glargine,Hum.rec.anlog) 100 Unit/1 Ml Vial 70 Unit SQ HS Vitals/I & O Vital Sign - Last 24 Hours 11/09/16 11/09/16 11/09/16 11/09/16 15:10 15:18 19:00 19:56 Temp 98.1 98.7 98.1 98.7 Pulse 94 94 Resp 18 18 B/P 152/85 152/97 Pulse Ox 97 98 98 O2 Delivery Nasal Cannula Nasal Cannula Nasal Cannula Nasal Cannula O2 Flow Rate 2.0 2.0 2.0 2.0 11/09/16 11/09/16 11/10/16 11/10/16 20:00 23:00 03:00 07:44 Temp 98.7 98.5 97.6 98.7 98.5 97.6 Pulse 92 92 89 Resp 21 19 B/P 167/90 150/93 141/85 Pulse Ox 95 94 100 O2 Delivery Nasal Cannula Nasal Cannula Nasal Cannula Nasal Cannula O2 Flow Rate 2.0 2.0 2.0 2.0 11/10/16 11/10/16 11/10/16 11/10/16 07:48 08:31 11:03 11:23 Temp 98.3 98.3 Pulse 89 89 Resp 20 B/P 141/85 137/81 Pulse Ox 98 94 97 O2 Delivery Nasal Cannula Room Air Nasal Cannula O2 Flow Rate 2.0 2.0 Intake and Output 11/09/16 11/09/16 11/10/16 15:00 23:00 07:00 Intake Total 480 ml 360 ml Balance 480 ml 360 ml MEDHAT LARSON III DO Nov 10, 2016 11:48
--- NOTE | 2016-11-10 11:51 | PDOC ---
PULMONARY PROGRESS NOTES Subjective feels better Vitals Vital Signs Date Time Temp Pulse Resp B/P Pulse Ox O2 Delivery O2 Flow Rate FiO2 11/10/16 11:23 97 Nasal Cannula 2.0 11/10/16 11:03 98.3 89 20 137/81 98.3 ROS: No Nausea, No Chest Pain, No Abdominal Pain, No Increase Cough General: Alert, No acute distress HEENT: Other (nc ar peerl, throat nose clear) Lungs: Wheezing (resolved) Cardiovascular: S1, S2 Abdomen: Soft, Non-tender Neuro Exam: Alert Extremities: Other Skin: Warm, Dry Labs Laboratory Tests Test 11/08/16 14:00 11/08/16 17:34 11/08/16 20:25 11/09/16 03:25 Influenza Type A Antigen Negative (NEGATIVE) Influenza Type B Antigen Negative (NEGATIVE) Glucose (Fingerstick) 199mg/dL (70-99) 299mg/dL (70-99) Sodium Level 146mmol/L (136-145) Potassium Level 4.0mmol/L (3.5-5.1) Chloride Level 109mmol/L (98-107) Carbon Dioxide Level 27mmol/L (21-32) Anion Gap 10 (6-14) Blood Urea Nitrogen 18mg/dL (7-20) Creatinine 1.3mg/dL (0.6-1.0) Estimated GFR (Cockcroft-Gault) 44.7 Glucose Level 294mg/dL (70-99) Calcium Level 8.5mg/dL (8.5-10.1) Phosphorus Level 4.3mg/dL (2.6-4.7) Magnesium Level 1.9mg/dL (1.8-2.4) Albumin 2.9g/dL (3.4-5.0) HIV-1 Antibody Non reactive (Non Reactive) Test 11/09/16 07:39 11/09/16 10:56 11/09/16 16:30 11/09/16 20:30 Glucose (Fingerstick) 186mg/dL (70-99) 220mg/dL (70-99) 409mg/dL (70-99) 467mg/dL (70-99) Test 11/10/16 06:00 11/10/16 07:13 11/10/16 10:40 White Blood Count 13.6x10^3/uL (4.0-11.0) Red Blood Count 3.83x10^6/uL (3.50-5.40) Hemoglobin 9.5g/dL (12.0-15.5) Hematocrit 30.2% (36.0-47.0) Mean Corpuscular Volume 79fL (79-100) Mean Corpuscular Hemoglobin 25pg (25-35) Mean Corpuscular Hemoglobin Concent 32g/dL (31-37) Red Cell Distribution Width 21.4% (11.5-14.5) Platelet Count 412x10^3/uL (140-400) Neutrophils (%) (Auto) 81% (31-73) Lymphocytes (%) (Auto) 11% (24-48) Monocytes (%) (Auto) 8% (0-9) Eosinophils (%) (Auto) 0% (0-3) Basophils (%) (Auto) 0% (0-3) Neutrophils # (Auto) 10.9x10^3uL (1.8-7.7) Lymphocytes # (Auto) 1.5x10^3/uL (1.0-4.8) Monocytes # (Auto) 1.0x10^3/uL (0.0-1.1) Eosinophils # (Auto) 0.0x10^3/uL (0.0-0.7) Basophils # (Auto) 0.0x10^3/uL (0.0-0.2) Segmented Neutrophils % 81% (35-66) Band Neutrophils % 1% (0-9) Lymphocytes % 14% (24-48) Monocytes % 4% (0-10) Platelet Estimate Increased (ADEQUATE) Anisocytosis Mod Sodium Level 147mmol/L (136-145) Potassium Level 3.6mmol/L (3.5-5.1) Chloride Level 108mmol/L (98-107) Carbon Dioxide Level 30mmol/L (21-32) Anion Gap 9 (6-14) Blood Urea Nitrogen 17mg/dL (7-20) Creatinine 1.4mg/dL (0.6-1.0) Estimated GFR (Cockcroft-Gault) 41.0 Glucose Level 264mg/dL (70-99) Calcium Level 8.9mg/dL (8.5-10.1) Phosphorus Level 3.1mg/dL (2.6-4.7) Magnesium Level 1.8mg/dL (1.8-2.4) Albumin 2.9g/dL (3.4-5.0) Glucose (Fingerstick) 286mg/dL (70-99) 217mg/dL (70-99) Laboratory Tests Test 11/09/16 16:30 11/09/16 20:30 11/10/16 06:00 11/10/16 07:13 Glucose (Fingerstick) 409mg/dL (70-99) 467mg/dL (70-99) 286mg/dL (70-99) White Blood Count 13.6x10^3/uL (4.0-11.0) Red Blood Count 3.83x10^6/uL (3.50-5.40) Hemoglobin 9.5g/dL (12.0-15.5) Hematocrit 30.2% (36.0-47.0) Mean Corpuscular Volume 79fL (79-100) Mean Corpuscular Hemoglobin 25pg (25-35) Mean Corpuscular Hemoglobin Concent 32g/dL (31-37) Red Cell Distribution Width 21.4% (11.5-14.5) Platelet Count 412x10^3/uL (140-400) Neutrophils (%) (Auto) 81% (31-73) Lymphocytes (%) (Auto) 11% (24-48) Monocytes (%) (Auto) 8% (0-9) Eosinophils (%) (Auto) 0% (0-3) Basophils (%) (Auto) 0% (0-3) Neutrophils # (Auto) 10.9x10^3uL (1.8-7.7) Lymphocytes # (Auto) 1.5x10^3/uL (1.0-4.8) Monocytes # (Auto) 1.0x10^3/uL (0.0-1.1) Eosinophils # (Auto) 0.0x10^3/uL (0.0-0.7) Basophils # (Auto) 0.0x10^3/uL (0.0-0.2) Segmented Neutrophils % 81% (35-66) Band Neutrophils % 1% (0-9) Lymphocytes % 14% (24-48) Monocytes % 4% (0-10) Platelet Estimate Increased (ADEQUATE) Anisocytosis Mod Sodium Level 147mmol/L (136-145) Potassium Level 3.6mmol/L (3.5-5.1) Chloride Level 108mmol/L (98-107) Carbon Dioxide Level 30mmol/L (21-32) Anion Gap 9 (6-14) Blood Urea Nitrogen 17mg/dL (7-20) Creatinine 1.4mg/dL (0.6-1.0) Estimated GFR (Cockcroft-Gault) 41.0 Glucose Level 264mg/dL (70-99) Calcium Level 8.9mg/dL (8.5-10.1) Phosphorus Level 3.1mg/dL (2.6-4.7) Magnesium Level 1.8mg/dL (1.8-2.4) Albumin 2.9g/dL (3.4-5.0) Test 11/10/16 10:40 Glucose (Fingerstick) 217mg/dL (70-99) Medications Active Scripts Medications Dose Route/Sig Days Date Category Aspirin Ec (Aspirin) 81 Mg Tablet.dr 81 Mg PO DAILY 10/30/16 Reported Nystatin 15 Gm Cream..g. 1 Vianney TP BID 10 08/08/16 Rx Ambien (Zolpidem Tartrate) 5 Mg Tablet 5 Mg PO PRN QHS PRN 08/08/16 Rx Yoder 5-325 Tablet (Acetaminophen/Hydrocodone Bitart) 1 Each Tablet 1-2 Tab PO Q4-6HRS 07/30/16 Rx Gabapentin 800 Mg Tablet 800 Mg PO TID 07/28/16 Reported Victoza 3-[place] (Liraglutide) 0.6 Mg/0.1 Ml Pen.injctr 1.8 Mg SQ DAILY 07/28/16 Reported Omeprazole 40 Mg Capsule.dr 40 Mg PO DAILY 07/28/16 Reported Cyclobenzaprine Hcl 10 Mg Tablet 10 Mg PO TID 07/28/16 Reported Iron (Ferrous Sulfate) 325 Mg Tablet 325 Mg PO DAILY 07/28/16 Reported Valium (Diazepam) 5 Mg Tablet 5 Mg PO DAILY 07/28/16 Reported Lexapro (Escitalopram Oxalate) 5 Mg Tablet 5 Mg PO DAILY 07/28/16 Reported Fexofenadine Hcl 180 Mg Tablet 180 Mg PO DAILY 07/28/16 Reported Albuterol Sulfate Conc Neb Soln (Albuterol Sulfate) 2.5 Mg/0.5 Ml Vial.neb 2.5 Mg NEB Q4HRS PRN 07/28/16 Reported Simvastatin 40 Mg Tablet 40 Mg PO HS 07/28/16 Reported Diltiazem 24HR Cd (Diltiazem Hcl) 120 Mg Cap.er.24h 120 Mg PO DAILY 07/28/16 Reported Symbicort 160-4.5 Mcg Inhaler (Budesonide/Formoterol Fumarate) 10.2 Gm Hfa.aer.ad 2 Puff IH BID 07/28/16 Reported Novolog (Insulin Aspart) 100 Unit/1 Ml Cartridge 27 Unit SQ TIDAC 10/02/14 Reported Lantus (Insulin Glargine,Hum.rec.anlog) 100 Unit/1 Ml Vial 70 Unit SQ HS 10/02/[address] reviewed, 1. Mild bibasilar atelectasis. 2. Hepatomegaly with hepatic steatosis. 3. Tiny gas bubbles related to the anterior abdominal wall at the mid pelvic level presumably on a postsurgical basis. There is adjacent streaky inflammation in the subcutaneous fat and within the pelvis, without evidence of a discrete abscess. Impression . 1. Pneumonia Clinically improved , developed acute CHF 11/05 (improved 11/08 cxr) 2. Acute exacerbation of asthma. 3. Chronic atrial fibrillation. 4. Sepsis POA with hypotension,resolved 5. Met and toxic encephalopathy, resolved 6. Suspect ABI 7. CDK Plan . DIURESE PRN Antibx PER ID/ no fever today. can change to PO NEBS AVOID SEDATION PSG OUT PT REPEAT CXR 11/08 IMPROVED CHF can go home today d/w PCP/SHANE FAULKNER MD Nov 10, 2016 11:51
--- NOTE | 2016-11-10 14:19 | PDOC ---
SUBJECTIVE ROS BIGG doing better, ready to go ho me OBJECTIVE Vital Signs Vital Signs Date Time Temp Pulse Resp B/P Pulse Ox O2 Delivery O2 Flow Rate FiO2 11/10/16 11:23 97 Nasal Cannula 2.0 11/10/16 11:03 98.3 89 20 137/81 98.3 I & 0 Intake and Output 11/10/16 07:00 Intake Total 840 ml Balance 840 ml Intake Oral 840 ml # Voids 3 PHYSICAL EXAM Physical Exam General Appearance: Awake: Alert Oriented x 3 Neck: No JVD or JVP Chest: CTA Kristopher, rare basal rales Heart: S1 S2 Abdomen - Soft NTND Extremities - + Edema DIAGNOSIS/ASSESSMENT Assessment & Plan BIGG/ ATN - Stable Creat. Current fluid and E-lyte status does not necessitate emergent need for dialysis. Malign HTN: better on Current BP meds as reviewed. See orders for changes. May need OP F.up if creat does not return to basleine of 0.7ish after 1m. May need another US soon COMMENT/RELEVANT DATA Meds Current Medications Medications (Trade) Dose Ordered Sig/Mo Start Time Stop Time Status Last Admin Dose Admin Acetaminophen/ Hydrocodone Bitart 1 tab 1 tab PRN Q4HRS PRN 10/30/16 10:15 10/30/16 11:31 DC 10/30/16 10:30 1 TAB Acetaminophen/ Hydrocodone Bitart (Lortab 5/325) 2 tab PRN QID PRN 10/30/16 11:45 11/06/16 23:07 2 TAB Albuterol Sulfate (Ventolin Neb Soln) 2.5 mg PRN Q4HRS PRN 10/30/16 11:45 11/06/16 16:45 2.5 MG Albuterol/ Ipratropium (Duoneb) 3 ml Q4HRS W/A 11/06/16 18:00 11/10/16 11:23 3 ML Albuterol/ Ipratropium 3 ml 3 ml 1X ONCE 10/30/16 00:15 10/30/16 00:57 DC 10/30/16 00:31 3 ML Alprazolam (Xanax) 0.25 mg PRN Q8HRS PRN 11/01/16 10:30 11/03/16 20:44 0.25 MG Amoxicillin/ Clavulanate Potassium (Augmentin 875/ 125mg) 1 tab BID 11/05/16 21:00 11/05/16 21:00 DC Aspirin (Ecotrin) 81 mg [id number] 10/30/16 12:30 10/31/16 10:40 DC Budesonide (Pulmicort) 0.5 mg RTBID 10/30/16 20:00 11/06/16 19:05 DC 11/06/16 08:09 0.5 MG Cefpodoxime Proxetil (Vantin) 200 mg BID 11/05/16 21:00 11/08/16 11:37 DC 11/08/16 09:08 200 MG Cetirizine HCl (Zyrtec) 10 mg DAILY 10/30/16 12:30 11/10/16 08:31 10 MG Ciprofloxacin Lactate (Cipro 400mg Premix) 200 ml @ 200 mls/hr Q12HR 10/30/16 21:00 11/02/16 07:27 DC 11/01/16 21:38 200 MLS/HR Cyclobenzaprine HCl (Flexeril) 10 mg TID 10/30/16 14:00 11/01/16 10:21 DC 10/30/16 21:33 10 MG Dextrose 12.5 gm PRN Q15MIN PRN 11/03/16 20:45 Diazepam (Valium) 5 mg DAILY 10/30/16 12:30 11/01/16 10:21 DC 11/01/16 09:00 5 MG Diltiazem HCl (Cardizem 24hr Cd) 120 mg DAILY 10/30/16 12:30 11/08/16 12:18 DC 11/08/16 09:04 120 MG Diltiazem HCl 240 mg 240 mg DAILY 11/09/16 09:00 11/10/16 08:31 240 MG Docusate Sodium (Colace) 100 mg DAILY 11/05/16 12:30 11/10/16 08:31 100 MG Escitalopram Oxalate (Lexapro) 5 mg DAILY 11/04/16 09:00 11/10/16 08:31 5 MG Famotidine (Pepcid) 20 mg BID 10/30/16 02:00 11/01/16 09:19 DC 10/30/16 21:33 20 MG Ferrous Sulfate (Feosol) 325 mg DAILY 10/30/16 12:30 11/10/16 08:32 325 MG Ferrous Sulfate 325 mg 325 mg QHS 11/04/16 21:00 11/04/16 21:00 DC Furosemide (Lasix) 20 mg 1X ONCE 11/06/16 19:15 11/06/16 19:16 DC 11/06/16 21:47 20 MG Gabapentin (Neurontin) 800 mg TID 10/30/16 14:00 11/10/16 08:31 800 MG Guaifenesin (Mucinex) 600 mg BID 11/01/16 14:00 11/10/16 08:31 600 MG Guaifenesin (Robitussin) 200 mg PRN Q4HRS PRN 11/01/16 13:15 11/05/16 13:00 200 MG Heparin Sodium (Porcine) 5,000 unit Q8HRS 11/04/16 14:00 11/10/16 06:41 5,000 UNIT Info (Do NOT chart on this entry -- for MONITORING) 1 each PRN DAILY PRN 10/31/16 09:15 11/02/16 09:14 DC Insulin Aspart (Novolog) 20 units 1X ONCE 11/06/16 22:00 11/06/16 22:01 DC 11/06/16 22:12 20 UNITS Insulin Aspart 15 units 15 units 1X ONCE 11/05/16 23:15 11/05/16 23:16 DC 11/05/16 23:27 15 UNITS Insulin Detemir (Levemir) 80 units QHS 11/05/16 21:00 11/09/16 20:53 80 UNITS Insulin Detemir 40 units 40 units QHS 11/02/16 21:00 11/04/16 06:31 DC 11/03/16 20:50 40 UNITS Insulin Human Regular 10 unit 10 unit 1X ONCE 10/30/16 01:00 10/30/16 01:01 DC 10/30/16 02:33 10 UNIT Iohexol (Omnipaque 240 Mg/ml) 30 ml 1X ONCE 10/31/16 09:00 10/31/16 09:03 DC 10/31/16 09:00 30 ML Iron Sucrose/ Sodium Chloride (Venofer/Iv Sodium Chloride 0.9% 250ml) 270 ml @ 90 mls/hr DAILY 11/05/16 09:00 11/04/16 14:59 UNV Labetalol HCl (Normodyne) 10 mg PRN Q2HR PRN 11/04/16 22:45 11/08/16 23:21 10 MG Lactobacillus Acidophilus (Bacid, Ashley-Bid) 1 tab TIDWMEALS 11/05/16 17:00 11/10/16 12:27 1 TAB Linezolid (Zyvox) 600 mg BID 11/09/16 21:00 11/10/16 08:32 600 MG Lisinopril (Prinivil) 10 mg DAILY 10/30/16 17:00 10/31/16 10:37 DC 10/30/16 17:13 10 MG Magnesium Hydroxide (Milk Of Magnesia) 2,400 mg PRN DAILY PRN 11/05/16 12:15 Magnesium Sulfate/ Dextrose (Magnesium Sulfate PREMIX 1GM) 100 ml @ 100 mls/hr 1X ONCE 11/08/16 12:15 11/08/16 13:14 DC 11/08/16 14:47 100 MLS/HR Magnesium Sulfate/ Dextrose (Magnesium Sulfate PREMIX 2GM) 50 ml @ 25 mls/hr PRN DAILY PRN 11/06/16 11:00 Methylprednisolone Sodium Succinate (Solu-Medrol 125mg Vial) 60 mg Q12HR 11/03/16 10:00 11/05/16 08:09 DC 11/04/16 21:44 60 MG Non-Formulary Medication 1.8 mg DAILY 10/31/16 09:00 11/01/16 07:09 DC Nystatin (Mycostatin) 1 fernandez BID 10/30/16 12:30 11/10/16 08:32 1 FERNANDEZ Ondansetron HCl (Zofran) 4 mg STK-MED ONCE 11/01/16 09:25 11/02/16 08:23 DC Pantoprazole Sodium (Protonix) 40 mg DAILYAC 10/30/16 12:30 11/10/16 06:32 40 MG Piperacillin Sod/ Tazobactam Sod (Zosyn Per Pharmacy) 1 each PRN DAILY PRN 11/01/16 13:15 11/01/16 13:16 DC Piperacillin Sod/ Tazobactam Sod 3.375 gm/Sodium Chloride 50 ml @ 100 mls/hr Q6HRS 11/08/16 12:00 11/10/16 12:28 100 MLS/HR Piperacillin Sod/ Tazobactam Sod 1 each 1 each PRN DAILY PRN 10/30/16 00:30 11/01/16 13:16 DC Piperacillin Sod/ Tazobactam Sod/ Sodium Chloride (Zosyn/Iv Sodium Chloride 0.9% 50ml) 50 ml @ 100 mls/hr 1X ONCE 10/30/16 01:00 10/30/16 01:29 DC 10/30/16 02:38 100 MLS/HR Piperacillin Sod/ Tazobactam Sod/ Sodium Chloride (Zosyn/Iv Sodium Chloride 0.9% 100ml) 100 ml @ 200 mls/hr Q6HRS 10/30/16 08:00 11/05/16 14:37 DC 11/05/16 11:26 200 MLS/HR Polyethylene Glycol (miraLAX PACKET) 17 gm PRN DAILY PRN 11/05/16 12:15 Potassium Chloride 40 meq/ Sodium Chloride 1,020 ml @ 75 mls/hr [id number] 11/06/16 10:56 11/07/16 14:07 DC 11/07/16 01:34 75 MLS/HR Potassium Phosphate 13.6 mmol/Sodium Chloride 104.5333 ml @ 52.267 m... Q2H 11/08/16 13:00 11/08/16 18:59 DC 11/08/16 23:25 52.267 MLS/HR Potassium Chloride (Klor-Con) 20 meq 1X ONCE 11/07/16 15:45 11/07/16 15:46 DC 11/07/16 17:09 20 MEQ Prednisone (Prednisone) 40 mg DAILY 11/05/16 09:00 11/10/16 08:32 40 MG Promethazine HCl/ Codeine (Phenergan With Codeine) 5 ml PRN Q4HRS PRN 10/30/16 10:15 11/04/16 21:53 5 ML Simvastatin (Zocor) 40 mg HS 10/30/16 21:00 11/09/16 20:47 40 MG Sodium Chloride (Iv Sodium Chloride 0.45%) 1,000 ml @ 75 mls/hr [id number] 11/02/16 14:45 11/06/16 10:58 DC 11/06/16 04:00 75 MLS/HR Sodium Chloride (Iv Sodium Chloride 0.9% 500ml Bag) 500 ml @ 500 mls/hr 1X ONCE 10/31/16 08:30 10/31/16 09:29 DC 10/31/16 08:00 500 MLS/HR Sodium Chloride (Normal Saline Flush) 10 ml QSHIFT PRN 10/29/16 23:30 Throat Lozenges 1 justin 1 justin PRN Q2HRS PRN 10/30/16 18:15 11/05/16 13:01 1 JUSTIN Vancomycin HCl 1 each 1X ONCE 11/10/16 00:30 11/10/16 00:30 DC Vancomycin HCl (Vanco Per Pharmacy) 1 each PRN DAILY PRN 10/30/16 00:30 11/02/16 07:27 DC 11/01/16 14:32 1 EACH Vancomycin HCl 1 each 1 each PRN DAILY PRN 11/08/16 11:45 11/09/16 12:10 DC 11/08/16 11:51 1 EACH Vancomycin HCl 2 gm/Sodium Chloride 500 ml @ 250 mls/hr 1X ONCE 11/08/16 13:00 11/08/16 14:59 DC 11/08/16 16:10 250 MLS/HR Vancomycin HCl/ Sodium Chloride (Iv Sodium Chloride 0.9% 250ml) 250 ml @ 166.667 mls/hr Q12H ONCE 11/09/16 01:00 11/09/16 02:29 DC 11/09/16 01:29 166.667 MLS/HR Vancomycin HCl/ Sodium Chloride (Iv Sodium Chloride 0.9% 500ml Bag) 500 ml @ 250 mls/hr Q12H 10/30/16 17:00 11/02/16 07:27 DC 11/02/16 04:42 250 MLS/HR Zolpidem Tartrate (Ambien) 5 mg PRN QHS PRN 10/30/16 11:30 11/04/16 12:44 DC 11/03/16 20:44 5 MG Lab Laboratory Tests Test 11/09/16 16:30 11/09/16 20:30 11/10/16 06:00 11/10/16 07:13 Glucose (Fingerstick) 409mg/dL (70-99) 467mg/dL (70-99) 286mg/dL (70-99) White Blood Count 13.6x10^3/uL (4.0-11.0) Red Blood Count 3.83x10^6/uL (3.50-5.40) Hemoglobin 9.5g/dL (12.0-15.5) Hematocrit 30.2% (36.0-47.0) Mean Corpuscular Volume 79fL (79-100) Mean Corpuscular Hemoglobin 25pg (25-35) Mean Corpuscular Hemoglobin Concent 32g/dL (31-37) Red Cell Distribution Width 21.4% (11.5-14.5) Platelet Count 412x10^3/uL (140-400) Neutrophils (%) (Auto) 81% (31-73) Lymphocytes (%) (Auto) 11% (24-48) Monocytes (%) (Auto) 8% (0-9) Eosinophils (%) (Auto) 0% (0-3) Basophils (%) (Auto) 0% (0-3) Neutrophils # (Auto) 10.9x10^3uL (1.8-7.7) Lymphocytes # (Auto) 1.5x10^3/uL (1.0-4.8) Monocytes # (Auto) 1.0x10^3/uL (0.0-1.1) Eosinophils # (Auto) 0.0x10^3/uL (0.0-0.7) Basophils # (Auto) 0.0x10^3/uL (0.0-0.2) Segmented Neutrophils % 81% (35-66) Band Neutrophils % 1% (0-9) Lymphocytes % 14% (24-48) Monocytes % 4% (0-10) Platelet Estimate Increased (ADEQUATE) Anisocytosis Mod Sodium Level 147mmol/L (136-145) Potassium Level 3.6mmol/L (3.5-5.1) Chloride Level 108mmol/L (98-107) Carbon Dioxide Level 30mmol/L (21-32) Anion Gap 9 (6-14) Blood Urea Nitrogen 17mg/dL (7-20) Creatinine 1.4mg/dL (0.6-1.0) Estimated GFR (Cockcroft-Gault) 41.0 Glucose Level 264mg/dL (70-99) Calcium Level 8.9mg/dL (8.5-10.1) Phosphorus Level 3.1mg/dL (2.6-4.7) Magnesium Level 1.8mg/dL (1.8-2.4) Albumin 2.9g/dL (3.4-5.0) Test 11/10/16 10:40 Glucose (Fingerstick) 217mg/dL (70-99) ORALIA CHAVES MD Nov 10, 2016 14:19
[2016-11-10 14:42] VITALS: BP 147/83
== END 2016-11-10 14:53 | disposition home or self-care (01) | DRG 871 ==
LOC: ER 22:35 → ED HOLD 10-30 00:15 → 5 SOUTH 10-30 08:21 → 1 WEST ICU 10-31 08:08 → 5 NORTH 11-03 18:46
PROVIDERS: ADMIT Internal Medicine; ATTEND Internal Medicine
PROC: 30233N1 Transfusion of Nonautologous Red Blood Cells into Peripheral Vein, Percutaneous Approach (ICD-10-PCS; principal; 2016-11-01)
DX: A41.9 Sepsis, unspecified organism (principal); J18.9 Pneumonia, unspecified organism; G92 Toxic encephalopathy; J96.01 Acute respiratory failure with hypoxia; N17.0 Acute kidney failure with tubular necrosis; E87.0 Hyperosmolality and hypernatremia; G93.1 Anoxic brain damage, not elsewhere classified; J45.901 Unspecified asthma with (acute) exacerbation; C53.9 Malignant neoplasm of cervix uteri, unspecified; D50.9 Iron deficiency anemia, unspecified; D72.819 Decreased white blood cell count, unspecified; E11.40 Type 2 diabetes mellitus with diabetic neuropathy, unspecified; E11.65 Type 2 diabetes mellitus with hyperglycemia; E66.9 Obesity, unspecified; E78.00 Pure hypercholesterolemia, unspecified; Z90.49 Acquired absence of other specified parts of digestive tract; E78.5 Hyperlipidemia, unspecified; E86.0 Dehydration; F32.9 Major depressive disorder, single episode, unspecified; F41.9 Anxiety disorder, unspecified; G25.81 Restless legs syndrome; G47.33 Obstructive sleep apnea (adult) (pediatric); I25.10 Atherosclerotic heart disease of native coronary artery without angina pectoris; I48.2 Chronic atrial fibrillation; I50.9 Heart failure, unspecified; K21.9 Gastro-esophageal reflux disease without esophagitis; I11.0 Hypertensive heart disease with heart failure; M79.1 Myalgia; Y95 Nosocomial condition; M19.90 Unspecified osteoarthritis, unspecified site; K59.00 Constipation, unspecified; G43.909 Migraine, unspecified, not intractable, without status migrainosus; Z68.36 Body mass index [BMI] 36.0-36.9, adult; Z82.49 Family history of ischemic heart disease and other diseases of the circulatory system; Z83.3 Family history of diabetes mellitus; Z90.710 Acquired absence of both cervix and uterus; Z88.8 Allergy status to other drugs, medicaments and biological substances
CPT/HCPCS: 36415; 36600; 71010; 71020; 71250; 74176; 80048; 80061; 80069; 80076; 80202; 81001; 82274; 82550; 82553; 82607; 82728; 82746; 82805; 82947; 83540; 83550; 83605; 83735; 83880; 84145; 84300; 84484; 85007; 85018; 85027; 85610; 86703; 86850; 86900; 86901; 86920; 87040; 87086; 87324; 87641; 87804; 93005; 93306; 94250; 94620; 94640; 94667; 94668; 94760; 96361; 96365; 96368; 96375; G0238; J0744; J1756; J1815; J2405; J2543; J2930; J3370; J3475; J3480; J3490; J7040; J7050; J7512; J7620; P9016; Q9966; 97110; 97116; 97530; 97535; 99285-25; J7030

== ENCOUNTER 2016-12-27 09:11 | Observation (INO) | payer OTHER ==
[~2016-12-27] VITALS: Ht 162.6 cm; Wt 83.9 kg
[~2016-12-27 09:11] MED LIST changes: +ASPI81TA9 PO
--- NOTE | 2016-12-27 09:42 | PHYS DOC ---
Past Medical History Past Medical History: A-Fib, Asthma, Depression, Diabetes-Type II, High Cholesterol, Hypertension Additional Past Medical Histor: NEUROPATHY Past Surgical History: Hysterectomy Additional Past Surgical Histo: unknown Alcohol Use: None Drug Use: None Adult General Chief Complaint Chief Complaint: Palpitations HPI HPI Patient is a 41 year old female who presents with shortness of breath and palpitations. She states she was fine until this morning when she woke up is feeling palpitations throughout her chest. They do not radiate around. She feels mild shortness of breath. She denies any fevers chills nausea or vomiting. She denies any long car trips, calf pain or swelling, history of any blood clots, estrogen use or tobacco abuse. She states she's had this before and had to give her medicine that stopped her heart. States she is on Cardizem and has not taken her a.m. medicines as of yet. Review of Systems Review of Systems Constitutional: Denies fever or chills [] Eyes: Denies change in visual acuity, redness, or eye pain [] HENT: Denies nasal congestion or sore throat [] Respiratory: Denies cough, positive for mild shortness of breath [] Cardiovascular: No additional information not addressed in HPI [] GI: Denies abdominal pain, nausea, vomiting, bloody stools or diarrhea [] : Denies dysuria or hematuria [] Musculoskeletal: Denies back pain or joint pain [] Integument: Denies rash or skin lesions [] Neurologic: Denies headache, focal weakness or sensory changes [] Endocrine: Denies polyuria or polydipsia [] Current Medications Current Medications Current Medications Medications (Trade) Dose Ordered Sig/Mo Start Time Stop Time Status Last Admin Dose Admin Diltiazem HCl (Cardizem) 10 mg 1X ONCE 12/27/16 11:30 12/27/16 11:31 DC 12/27/16 11:49 10 MG Allergies Allergies Allergies Coded Allergies Type Severity Reaction Last Updated Verified carbidopa Allergy Intermediate 10/12/16 Yes Physical Exam Physical Exam Constitutional: Well developed, well nourished, no acute distress, non-toxic appearance. [] HENT: Normocephalic, atraumatic, bilateral external ears normal, oropharynx moist, no oral exudates, nose normal. [] Eyes: PERRLA, EOMI, conjunctiva normal, no discharge. [] Neck: Normal range of motion, no tenderness, supple, no stridor. [] Cardiovascular:Heart rate tachycardia with regular rhythm, no murmur [] Lungs & Thorax: Bilateral breath sounds clear to auscultation [] Abdomen: Bowel sounds normal, soft, no tenderness, no masses, no pulsatile masses. [] Skin: Warm, dry, no erythema, no rash. [] Back: No tenderness, no CVA tenderness. [] Extremities: No tenderness, no cyanosis, no clubbing, ROM intact, no edema. [] Neurologic: Alert and oriented X 3, normal motor function, normal sensory function, no focal deficits noted. [] Psychologic: Affect normal, judgement normal, mood normal. [] Current Patient Data Vital Signs Vital Signs Date Time Temp Pulse Resp B/P Pulse Ox O2 Delivery O2 Flow Rate FiO2 12/27/16 09:20 98.1 130 22 163/94 96 Room Air 98.1 Lab Values Laboratory Tests Test 12/27/16 09:50 White Blood Count 10.9x10^3/uL (4.0-11.0) Red Blood Count 5.16x10^6/uL (3.50-5.40) Hemoglobin 13.9g/dL (12.0-15.5) Hematocrit 41.5% (36.0-47.0) Mean Corpuscular Volume 80fL (79-100) Mean Corpuscular Hemoglobin 27pg (25-35) Mean Corpuscular Hemoglobin Concent 34g/dL (31-37) Red Cell Distribution Width 21.0% (11.5-14.5) H Platelet Count 309x10^3/uL (140-400) Neutrophils (%) (Auto) 74% (31-73) H Lymphocytes (%) (Auto) 19% (24-48) L Monocytes (%) (Auto) 5% (0-9) Eosinophils (%) (Auto) 1% (0-3) Basophils (%) (Auto) 1% (0-3) Neutrophils # (Auto) 8.1x10^3uL (1.8-7.7) H Lymphocytes # (Auto) 2.1x10^3/uL (1.0-4.8) Monocytes # (Auto) 0.5x10^3/uL (0.0-1.1) Eosinophils # (Auto) 0.1x10^3/uL (0.0-0.7) Basophils # (Auto) 0.1x10^3/uL (0.0-0.2) Platelet Estimate Adequate (ADEQUATE) Anisocytosis Present Prothrombin Time 11.8SEC (11.7-14.0) Prothrombin Time INR 0.9 (0.8-1.1) D-Dimer (Abiola) 0.26ug/mlFEU (0.00-0.50) Sodium Level 143mmol/L (136-145) Potassium Level 4.1mmol/L (3.5-5.1) Chloride Level 104mmol/L (98-107) Carbon Dioxide Level 28mmol/L (21-32) Anion Gap 11 (6-14) Blood Urea Nitrogen 14mg/dL (7-20) Creatinine 0.9mg/dL (0.6-1.0) Estimated GFR (Cockcroft-Gault) 68.3 Glucose Level 124mg/dL (70-99) H Calcium Level 9.8mg/dL (8.5-10.1) Magnesium Level 1.7mg/dL (1.8-2.4) L Total Bilirubin 0.3mg/dL (0.2-1.0) Direct Bilirubin 0.1mg/dL (0.0-0.2) Aspartate Amino Transferase (AST) 20U/L (15-37) Alanine Aminotransferase (ALT) 27U/L (14-59) Alkaline Phosphatase 120U/L (46-116) H Creatine Kinase 32U/L (26-192) Creatine Kinase MB (Mass) 0.9ng/mL (0.0-3.6) Creatine Kinase MB Relative Index % (0-4) Troponin I Quantitative 0.042ng/mL (0.000-0.055) QA-Leh-A-Type Natriuretic Peptide 115pg/mL (0-124) Total Protein 8.0g/dL (6.4-8.2) Albumin 3.6g/dL (3.4-5.0) Thyroid Stimulating Hormone (TSH) 1.130uIU/mL (0.358-3.74) Laboratory Tests 12/27/16 09:50 Laboratory Tests 12/27/16 09:50 EKG EKG Sinus tachycardia heart rate 130 bpm, left axis deviation, no ST elevations or T -wave inversions appreciated, QTC 454 ms, as interpreted by me. Radiology/Procedures Radiology/Procedures [facility] [address] [place] [address] IMAGING REPORT Signed PATIENT: ARLEN CHÁVEZ ACCOUNT: [id number] : 1975 LOCATION: ER AGE: 41 SEX: F EXAM STATUS: REG ER ORD. PHYSICIAN: DELFINO ZAVALA MD REASON: chest pain 22 PROCEDURE: PORTABLE CHEST 1V Portable AP upright view CXR: Clinical indications: Chest pain. High blood pressure. 6 weeks post operative total hysterectomy. Comparison: November 08, 2016. Findings: No acute lung infiltrate or pleural effusion or pulmonary edema or lung mass or pneumothorax is seen. The heart size, pulmonary vasculature, mediastinum and both evette are stable. Impression: No acute radiographic abnormality is seen. DICTATED and SIGNED BY: CHON OCONNELL MD DATE: 12/27/16 1047 CC: DELFINO ZAVALA MD; YASMIN LEIGH MD ~ Impressions: Palpitations Sinus tachycardia Course & Med Decision Making Course & Med Decision Making Pertinent Labs and Imaging studies reviewed. (See chart for details) D-dimer is negative, chest x-ray doesn't show any acute abnormalities. Patient was given 10 of diltiazem IV and her heart rate did not change. She is being admitted to the hospitalist with cardiology consultation. Dragon Disclaimer Dragon Disclaimer This electronic medical record was generated, in whole or in part, using a voice recognition dictation system. Departure Departure Impression: Primary Impression: Palpitations Disposition: ADMITTED INPATIENT Admitting Physician: Tyshawn Man Condition: IMPROVED Referrals: YASMIN LEIGH MD (PCP) DELFINO ZAVALA MD Dec 27, 2016 09:42
[2016-12-27 10:13] LABS: BASO # 0.1 x10^3/uL (0.0-0.2); BASO % 1 % (0-3); EOS % 1 % (0-3); HEMATOCRIT 41.5 % (36.0-47.0); HEMOGLOBIN 13.9 g/dL (12.0-15.5); LYMPH # 2.1 x10^3/uL (1.0-4.8); LYMPH % 19 % (24-48); MEAN CORPUSCULAR HEMOGLOBIN 27 pg (25-35); MEAN CORPUSCULAR HGB CONC 34 g/dL (31-37); MEAN CORPUSCULAR VOLUME 80 fL (79-100); MONO % 5 % (0-9); NEUT % 74 % (31-73); PLATELET COUNT 309 x10^3/uL (140-400); RED BLOOD COUNT 5.16 x10^6/uL (3.50-5.40); WHITE BLOOD COUNT 10.9 x10^3/uL (4.0-11.0)
[2016-12-27 10:19] LABS: CALCIUM 9.8 mg/dL (8.5-10.1); CREATININE 0.9 mg/dL (0.6-1.0); GFR 68.3; POTASSIUM 4.1 mmol/L (3.5-5.1)
[2016-12-27 10:27] LABS: ALBUMIN 3.6 g/dL (3.4-5.0); DIRECT BILIRUBIN 0.1 mg/dL (0.0-0.2); MAGNESIUM 1.7 mg/dL (1.8-2.4); TOTAL BILIRUBIN 0.3 mg/dL (0.2-1.0)
[2016-12-27 10:34] LABS: CKMB MASS 0.9 ng/mL (0.0-3.6); CREATINE KINASE 32 U/L (26-192)
[2016-12-27 10:48] LABS: ANISOCYTOSIS PRESENT; PLT ESTIMATE ADEQUATE (ADEQUATE)
--- NOTE | 2016-12-27 10:51 | RAD ---
Portable AP upright view CXR: Clinical indications: Chest pain. High blood pressure. 6 weeks post operative total hysterectomy. Comparison: November 08, 2016. Findings: No acute lung infiltrate or pleural effusion or pulmonary edema or lung mass or pneumothorax is seen. The heart size, pulmonary vasculature, mediastinum and both evette are stable. Impression: No acute radiographic abnormality is seen.
[2016-12-27 10:53] LABS: INR 0.9 (0.8-1.1); PROTHROMBIN TIME PATIENT 11.8 SEC (11.7-14.0)
[2016-12-27] MEDS ORDERED: DILTIAZEM IV PUSH 25 MG/5 ML VIAL. IVP ONE (11:30)
[2016-12-27 12:03] LABS: BILIRUBIN,URINE NEGATIVE (NEG); GLUCOSE,URINE NEGATIVE (NEG); NITRITE,URINE NEGATIVE (NEG); PROTEIN,URINE 100 mg/dL (NEG-TRACE); UROBILINOGEN,URINE 0.2 mg/dL (0.2 mg/dL)
[2016-12-27 12:07] LABS: BARBITURATES NEG (NEG); BENZODIAZEPINES NEG (NEG); CANNABINOIDS NEG (NEG); COCAINE NEG (NEG); ETHANOL, URINE NEG (NEG); METHADONE NEG (NEG); OPIATES NEG (NEG); PHENCYCLIDINE NEG (NEG)
[2016-12-27] MEDS: ONDANSETRON PF 4 MG/2 ML VIAL. IV PRN (12:12)
[2016-12-27 12:25] LABS: BACTERIA,URINE FEW /HPF (0-FEW); RBC,URINE 0 /HPF (0-2); SQUAMOUS EPITHELIAL CELL,UR MANY /LPF
--- NOTE | 2016-12-27 14:05 | EKG ---
[facility] [address] [place] [address] Test Date: 2016-12-27 Test Time: 09:22:06 Pat Name: ARLEN HCÁVEZ Department: Room: Gender: F [employer]: : 1975 Requested By: DELFINO ZAVALA Order Number: [id number] Reading MD: Measurements Intervals [place] Rate: 130 P: 14 NC: 140 QRS: -30 QRSD: 82 T: 83 QT: 304 QTc: 454 Interpretive Statements SINUS TACHYCARDIA ABNORMAL LEFT AXIS DEVIATION R-S TRANSITION ZONE IN V LEADS DISPLACED TO THE LEFT LEFT ANTERIOR FASCICULAR BLOCK QRS(T) CONTOUR ABNORMALITY CONSIDER ANTEROSEPTAL MYOCARDIAL DAMAGE ST & T ABNORMALITY, CONSIDER HIGH LATERAL ISCHEMIA OR LEFT VENTRICULAR STRAIN ABNORMAL ECG RI6.01 No previous ECG available for comparison
--- NOTE | 2016-12-27 14:10 | PDOC2 ---
DYLAN RUEDA AGRICULTURAL ENGINEER 12/27/16 1410: CARDIAC CONSULT DATE OF CONSULT Date of Consult DATE: 12/27/16 TIME: 14:04 REASON FOR CONSULT Reason for Consult: Chest Pain REFERRING PHYSICIAN Referring Physician: Dr. Dinero SOURCE Source: Chart review, Patient HISTORY OF PRESENT ILLNESS HISTORY OF PRESENT ILLNESS This is a 41 yo female, with a history of SVT on diltiazem, who presented with complaints of palpitations. Began upon awakening. Reports feeling her "heart racing". Associated with SOA and nausea with episode or vomiting. Denies any dizziness, diaphoresis, SOA, or recent illness/fevers. Symptoms felt very similar to previous admission when noted to be significantly tachycardiac. Reports compliance with medications. EKG with ST rate 130 upon arrival to ED. PAST MEDICAL HISTORY Past Medical History Cardiovascular: CAD, HTN, Hyperlipidemia, SVT Pulmonary: Asthma, Pneumonia CENTRAL NERVOUS SYSTEM: Migraine, Peripheral neuropathy, Other (RLS) GI: GERD Heme/Onc: Anemia NOS Psych: Anxiety, Depression Musculoskeletal: Osteoarthritis Rheumatologic: No pertinent hx Infectious disease: No pertinent hx ENT: No pertinent hx Endocrine: Diabetes (2) Dermatology: No pertinent hx PAST SURGICAL HISTORY Past Surgical History (D & C), hysterectomy FAMILY HISTORY Family History: Heart Disease SOCIAL HISTORY Social History Smoke: No ALCOHOL: none Drugs: None Lives: with Family CURRENT MEDICATIONS CURRENT MEDICATIONS Current Medications Medications (Trade) Dose Ordered Sig/Mo Route PRN Reason Start Time Stop Time Status Last Admin Dose Admin Diltiazem HCl (Cardizem) 10 mg 1X ONCE IVP 12/27/16 11:30 12/27/16 11:31 DC 12/27/16 11:49 Ondansetron HCl (Zofran) 4 mg PRN Q8HRS PRN IV NAUSEA/VOMITING 12/27/16 12:00 12/28/16 11:59 12/27/16 12:12 ALLERGIES ALLERGIES: Coded Allergies: carbidopa (Verified Allergy, Intermediate, 10/12/16) ROS Review of System 14 point ROS conducted with pertinent positive noted above in HPI. PHYSICAL EXAM PHYSICAL EXAM General: Alert, Oriented X3, Cooperative, No acute distress HEENT: Atraumatic, Mucous membr. moist/pink Lungs: CTA Heart: Regular rhythm, Normal S1, Normal S2, No murmurs ( tele: ST) Abdomen: Soft, No tenderness Extremities: No cyanosis, No edema Skin: No breakdown, No significant lesion Neuro: Normal speech, Sensation intact Psych/Mental Status: Mental status NL, Mood NL MUSCULOSKELETAL: full ROM without pain VITALS VITALS Vital Signs Date Time Temp Pulse Resp B/P Pulse Ox O2 Delivery O2 Flow Rate FiO2 12/27/16 11:49 123 113/89 12/27/16 11:46 16 98 Room Air 12/27/16 09:20 98.1 98.1 LABS Lab: Laboratory Tests Test 12/27/16 09:50 12/27/16 11:35 White Blood Count 10.9x10^3/uL (4.0-11.0) Red Blood Count 5.16x10^6/uL (3.50-5.40) Hemoglobin 13.9g/dL (12.0-15.5) Hematocrit 41.5% (36.0-47.0) Mean Corpuscular Volume 80fL (79-100) Mean Corpuscular Hemoglobin 27pg (25-35) Mean Corpuscular Hemoglobin Concent 34g/dL (31-37) Red Cell Distribution Width 21.0% (11.5-14.5) Platelet Count 309x10^3/uL (140-400) Neutrophils (%) (Auto) 74% (31-73) Lymphocytes (%) (Auto) 19% (24-48) Monocytes (%) (Auto) 5% (0-9) Eosinophils (%) (Auto) 1% (0-3) Basophils (%) (Auto) 1% (0-3) Neutrophils # (Auto) 8.1x10^3uL (1.8-7.7) Lymphocytes # (Auto) 2.1x10^3/uL (1.0-4.8) Monocytes # (Auto) 0.5x10^3/uL (0.0-1.1) Eosinophils # (Auto) 0.1x10^3/uL (0.0-0.7) Basophils # (Auto) 0.1x10^3/uL (0.0-0.2) Platelet Estimate Adequate (ADEQUATE) Anisocytosis Present Prothrombin Time 11.8SEC (11.7-14.0) Prothromb Time International Ratio 0.9 (0.8-1.1) D-Dimer (Abiola) 0.26ug/mlFEU (0.00-0.50) Sodium Level 143mmol/L (136-145) Potassium Level 4.1mmol/L (3.5-5.1) Chloride Level 104mmol/L (98-107) Carbon Dioxide Level 28mmol/L (21-32) Anion Gap 11 (6-14) Blood Urea Nitrogen 14mg/dL (7-20) Creatinine 0.9mg/dL (0.6-1.0) Estimated GFR (Cockcroft-Gault) 68.3 Glucose Level 124mg/dL (70-99) Calcium Level 9.8mg/dL (8.5-10.1) Magnesium Level 1.7mg/dL (1.8-2.4) Total Bilirubin 0.3mg/dL (0.2-1.0) Direct Bilirubin 0.1mg/dL (0.0-0.2) Aspartate Amino Transf (AST/SGOT) 20U/L (15-37) Alanine Aminotransferase (ALT/SGPT) 27U/L (14-59) Alkaline Phosphatase 120U/L (46-116) Creatine Kinase 32U/L (26-192) Creatine Kinase MB (Mass) 0.9ng/mL (0.0-3.6) Creatine Kinase MB Relative Index % (0-4) Troponin I Quantitative 0.042ng/mL (0.000-0.055) IZ-Imt-O-Type Natriuretic Peptide 115pg/mL (0-124) Total Protein 8.0g/dL (6.4-8.2) Albumin 3.6g/dL (3.4-5.0) Thyroid Stimulating Hormone (TSH) 1.130uIU/mL (0.358-3.74) Urine Collection Type Unknown Urine Color Yellow Urine Clarity Clear Urine pH 6.0 Urine Specific [place] 1.020 Urine Protein 100mg/dL (NEG-TRACE) Urine Glucose (UA) Negativemg/dL (NEG) Urine Ketones (Stick) Negativemg/dL (NEG) Urine Blood Negative (NEG) Urine Nitrite Negative (NEG) Urine Bilirubin Negative (NEG) Urine Urobilinogen Dipstick 0.2mg/dL (0.2 mg/dL) Urine Leukocyte Esterase Negative (NEG) Urine RBC 0/HPF (0-2) Urine WBC 1-4/HPF (0-4) Urine Squamous Epithelial Cells Many/LPF Urine Bacteria Few/HPF (0-FEW) Urine Mucus Slight/LPF Urine Opiates Screen Neg (NEG) Urine Methadone Screen Neg (NEG) Urine Barbiturates Neg (NEG) Urine Phencyclidine Screen Neg (NEG) Urine Amphetamine/Methamphetamine Neg (NEG) Urine Benzodiazepines Screen Neg (NEG) Urine Cocaine Screen Neg (NEG) Urine Cannabinoids Screen Neg (NEG) Urine Ethyl Alcohol Neg (NEG) ECHOCARDIOGRAM ECHOCARDIOGRAM DATE: 10/30/16 1522 <Conclusion> The left ventricular systolic function is normal and the ejection fraction is within normal range. The Ejection Fraction is 55-60%. There is normal LV segmental wall motion. HEART CATH HEART CATH DATE: 07/28/16 1125 FINDINGS 1. Hemodynamics: Left ventricular end-diastolic pressure of 19 mmHg. No pullback gradient across the aortic valve. 2. Left ventriculography: Normal left ventricle systolic function with ejection fraction estimated at 60%. No significant mitral regurgitation seen. 3. Coronary angiography: a. The left main coronary artery arose from the left sinus of Valsalva, gave rise to the left anterior descending, ramus intermedius and left circumflex arteries and did not show any significant stenosis. b. The left anterior descending artery did not show any significant stenosis. c. The left circumflex artery showed 80% stenosis in the proximal segment of the small caliber obtuse marginal branch. d. The ramus intermedius artery did not show any significant stenosis. e. The right coronary artery was a large and dominant vessel arising from the right sinus of Valsalva that did not show any significant stenosis. Conclusion 1. 80% stenosis involving a small caliber obtuse marginal branch of left circumflex artery. No other significant stenoses were noted. 2. Normal left ventricular systolic function with ejection fraction estimated at 60%. Recommendations Medical Therapy ASSESSMENT/PLAN ASSESSMENT/PLAN 1. Tachyarrhythmia noted to be in ST upon arrival to ED TSH WNL. Recent echo with normal LV function as above improved with IV Cardizem will resume oral Cardizem and increase to 180 mg. If recurrent, consider for EP evaluation 2. CAD recent cath with 80% stenosis of small OM branch of LCx stable. CP free. continue with secondary prevention 3. DM, II per PCP 4. Hypertension controlled with meds 5. Hyperlipidemia LDL 70 10/30/16 continue statin therapy 6. Hypomagnesemia replace. monitor lytes Problems: LUCIA LÓPEZ MD 12/27/16 1704: CARDIAC CONSULT ALLERGIES ALLERGIES: Coded Allergies: carbidopa (Verified Allergy, Intermediate, 10/12/16) ASSESSMENT/PLAN ASSESSMENT/PLAN Patient seen and examined. Agree with AIRBRUSH ARTIST's assessment and plan. Chest pain with atypical features and most probably GI in etiology. Recent cardiac cath results noted above. EKG and youth nutritional monitor showed sinus tachycardia. No other significant arrhythmias noted. Recent 2-D echo showed normal LV function. Plan for event monitor as an outpatient. Thank you for your consultation. Problems: DYLAN RUEDA APRN Dec 27, 2016 14:10 LUCIA LÓPEZ MD Dec 27, 2016 17:04
[2016-12-27 15:15] VITALS: BP 124/84
[2016-12-27] MEDS ORDERED: TIZA4TAB PO (15:32)
--- NOTE | 2016-12-27 15:56 | HP ---
ADMIT DATE: 12/27/2016 CHIEF COMPLAINT: Chest pain or palpitations. HISTORY OF PRESENT ILLNESS: The patient is a pleasant 41-year-old female who presents with chest pain, shortness of breath, and palpitations. She rates it 7 out of 10. It has been occurring since this morning. I discussed the case with the ER physician. She did have a history of atrial fibrillation previously. We are going to admit her and consult Cardiology. Right now, she is in sinus rhythm with 110 beats per minute. PAST MEDICAL HISTORY: Atrial fibrillation, asthma, depression, diabetes, hyperlipidemia, hypertension, neuropathy, and hysterectomy. ALLERGIES: CARBIDOPA. FAMILY HISTORY: Hypertension. SOCIAL HISTORY: She does not drink, smoke, or take drugs. MEDICATIONS: Reviewed. Please refer to the MRAD. REVIEW OF SYSTEMS: GENERAL: No history of weight change, weakness, or fevers. SKIN: No bruising, hair changes, or rashes. EYES: No blurred, double, or loss of vision. NOSE AND THROAT: No history of nosebleeds, hoarseness, or sore throat. HEART: The patient complains of chest pain and palpitation. LUNGS: Denies cough, hemoptysis, wheezing, or shortness of breath. GASTROINTESTINAL: Denies changes in appetite, nausea, vomiting, diarrhea, or constipation. GENITOURINARY: No history of frequency, urgency, hesitancy, or nocturia. NEUROLOGIC: Denies history of numbness, tingling, tremor, or weakness. PSYCHIATRIC: No history of panic, anxiety, or depression. ENDOCRINE: No history of heat or cold intolerance, polyuria, or polydipsia. EXTREMITIES: Denies muscle weakness, joint pain, pain on walking, or stiffness. PHYSICAL EXAMINATION: VITAL SIGNS: Temperature afebrile, pulse 68, respirations 18, and blood pressure 113/90. GENERAL: She is alert, cooperative. HEART: Normal S1, S2, tachycardic. LUNGS: Clear. ABDOMEN: Soft. EXTREMITIES: No edema. SKIN: No rashes. PSYCHIATRIC: She is anxious. VASCULAR: Good capillary refill. ENDOCRINE: No thyromegaly. LYMPHATICS: No cervical nodes. HEMATOPOIETIC: No bruising. LABORATORY DATA: White count 11, hemoglobin 14, and platelets 309. Electrolytes are normal. Troponin is slightly high at 0.042. Drug screen is negative. Urinalysis is negative. INR is 0.9. ASSESSMENT AND PLAN: Palpitations, chest pain, and sinus tachycardia. The patient is being admitted. We will consult Cardiology, serial enzymes, serial EKGs. Continue home medicines, cardiac monitoring. MEDHAT LARSON DO DR: VIVI/dylan JOB#: [id number] / [id number]
[2016-12-27] MEDS: DILTIAZEM HCL 180 MG CAP.ER.24H PO SCH (16:10)
[2016-12-27] MEDS: ASPIRIN ENTERIC COATED 81 MG TABLET.DR. PO SCH (16:10)
[2016-12-27] MEDS ORDERED: MAGNESIUM SULFATE 2GM 50 ML IV ONE (16:30)
--- NOTE | 2016-12-27 18:04 | ACF ---
Admission Forms Criteria TELEMETRY CARE Telemetry Admission Guidelines (Place 'X' for any and all applicable criteria): Admission to telemetry [A] may be indicated for ANY ONE of the following(1)(2)(3 )(4)(5): [X]I. Cardiac disease, including ANY ONE of the following (9)(10)(11)(12)(13 ): [ ]a) Postacute AR [ ]b) Low-risk patients with ST-segment elevation AR who have undergone successful percutaneous coronary intervention [ ]c) Unstable angina [ ]d) Suspected AR (until it is ruled out) [ ]e) Post cardiac surgery (first 48 to 72 hours unless complications occur) [X]f) Acute arrhythmias (including significant tachycardia or bradycardia) [B] [ ]g) Firing of an implantable cardioverter defibrillator [C] [ ]h) Suspected pacemaker or implantable cardioverter defibrillator malfunction (10) [ ]i) New administration or adjustment of an antiarrhythmic drug [D ] [ ]j) Child admitted for acute congestive heart failure [ ]j) Long QT syndrome [ ]k) Advanced heart block (eg, second-degree Mobitz type II, third- degree heart block) [ ]l) Acute myocarditis or pericarditis [ ]m) Short-term (ambulatory or inpatient) monitoring after a cardiac procedure as indicated by ANY ONE of the following [E]: [ ]i) Electrophysiologic studies [ ]ii) Percutaneous coronary intervention with stent placement [ ]iii) Pacemaker placement with cardiac conduction defect [ ]iv) Implantable cardiac defibrillator placement [ ]II. Drug overdose or poisoning with substance that causes arrhythmias or QT prolongation (eg, phenothiazines, sympathomimetic agents, cyclic antidepressants, digitalis, antiarrhythmic drugs)(15) [ ]III. Short-term (ambulatory or inpatient) monitoring after therapeutic or diagnostic procedure requiring conscious sedation or anesthesia (eg, endoscopy, elective cardioversion) [ ]IV. Acute cerebrovascular even[F](18) [ ]V. Massive blood transfusion (eg, at least 10 units of packed red blood cells in 24 hours) [ ]. Variceal bleeding after endoscopy, sclerotherapy, or IV vasopressin [ ]VII. Uncorrected electrolyte abnormalities associated with an increased risk of dangerous arrhythmia [G]; examples include [ ]a) Hyperkalemia with attributable ECG changes [ ]b) Potassium greater than 6.5 mmol/L (mEq/L) in a patient without history of chronic renal disease [ ]c) Prolonged QT attributed to hypokalemia, hypomagnesemia, or hypocalcemia [ ]VIII.Unexplained syncope or other neurologic event suspected of being due to arrhythmia due to a finding that increases risk; examples include(19)(20)(21): [ ]a) High-risk ECG findings (eg, bifascicular block, bradycardia, abnormal QT interval, ventricular pre- excitation) [ ]b) History of previous syncope due to arrhythmia [ ]c) Abnormal ventricular function (eg, reduced ejection fraction ) [ ]d) Exertional or supine syncope [ ]e) Concerning syncope characteristics (eg, sudden loss of consciousness without prodrome) [ ]f) Family history of sudden [ ]g) Use of arrhythmogenic medication [ ]h) Suspected cardiac ischemia [ ]i) Known channelopathy (eg, long QT syndrome, Brugada syndrome, or catecholaminergic paroxysmal ventricular tachycardia) [ ]j) Known structural heart disease (eg, hypertrophic cardiomyopathy , severe valvular disease) [ ]k) Palpitations preceding syncope The original [email or web address] content created by [email or web address] has been revised. The portions of the content which have been revised are identified through the use of italic text or in bold, and [email or web address] has neither reviewed nor approved the modified material. All other unmodified content is copyright [email or web address]. Please see references footnoted in the original [email or web address] edition 2016 Admission Criteria Met?: Yes KAYDEN MACHADO Dec 27, 2016 18:03
[2016-12-27] MEDS ORDERED: ACETAMINOPHEN 325 MG TABLET. PO PRN (19:00)
[2016-12-27 19:24] VITALS: BP 145/89
[2016-12-27] MEDS ORDERED: ALBUTEROL SULFATE 2.5 MG/3 ML NEBU. NEB PRN (19:45)
[2016-12-27] MEDS ORDERED: ZOLPIDEM 5 MG TABLET. PO PRN (19:45)
[2016-12-27] MEDS ORDERED: tiZANidine 4 MG TABLET. PO PRN (19:45)
[2016-12-27] MEDS ORDERED: HYDROCODONE/APAP 5/325MG TABLET. PO PRN (19:45)
[2016-12-27] MEDS ORDERED: NON FORMULARY ITEM (Albuterol Sulfate (Albuterol Sulfate Conc Neb Soln) 2.5 MG) NEB PRN (19:45)
[2016-12-27] MEDS: INSULIN ASPART 300 UNITS/3 ML INSULN.PEN SQ SCH (19:52)
[2016-12-27] MEDS: GABAPENTIN 400 MG CAPSULE. PO SCH (20:41)
[2016-12-27] MEDS: HYDROCODONE/APAP 5/325MG TABLET. PO PRN (20:41)
[2016-12-27] MEDS: NYSTATIN 100,000 UNIT/GM TOPICAL CREAM 15GM TUBE. TP SCH (20:46)
[2016-12-27] MEDS ORDERED: ATORVASTATIN CALCIUM 20 MG TABLET PO SCH (21:00)
[2016-12-27] MEDS ORDERED: INSULIN DETEMIR 300 UNITS/3 ML INSULN.PEN. SQ SCH (21:00)
[2016-12-27] MEDS ORDERED: NON FORMULARY ITEM (Budesonide/Formoterol Fumarate (Symbicort 160-4.5 Mcg Inhaler) 2 PUFF) IH SCH (21:00)
[2016-12-27] MEDS: BUDESONIDE 0.5 MG/2 ML NEBU. NEB SCH (21:24)
[2016-12-27] MEDS: ALBUTEROL SULFATE 2.5 MG/3 ML NEBU. NEB SCH (21:24)
[2016-12-27 23:11] VITALS: BP 136/84
[2016-12-28 02:36] VITALS: BP 121/71
[2016-12-28] MEDS: HYDROCODONE/APAP 5/325MG TABLET. PO PRN (03:00)
[2016-12-28 05:21] LABS: BASO # 0.1 x10^3/uL (0.0-0.2); BASO % 1 % (0-3); EOS % 1 % (0-3); HEMATOCRIT 36.4 % (36.0-47.0); LYMPH # 3.3 x10^3/uL (1.0-4.8); LYMPH % 31 % (24-48); MEAN CORPUSCULAR HEMOGLOBIN 27 pg (25-35); MEAN CORPUSCULAR HGB CONC 33 g/dL (31-37); MEAN CORPUSCULAR VOLUME 81 fL (79-100); MONO % 6 % (0-9); NEUT % 62 % (31-73); PLATELET COUNT 280 x10^3/uL (140-400); RED BLOOD COUNT 4.49 x10^6/uL (3.50-5.40); RED CELL DISTRIBUTION WIDTH 21.1 % (11.5-14.5); WHITE BLOOD COUNT 10.7 x10^3/uL (4.0-11.0)
[2016-12-28 05:27] LABS: CALCIUM 8.8 mg/dL (8.5-10.1); GFR 60.5; POTASSIUM 3.9 mmol/L (3.5-5.1)
[2016-12-28 07:00] VITALS: BP 154/77
[2016-12-28] MEDS: BUDESONIDE 0.5 MG/2 ML NEBU. NEB SCH (07:13)
[2016-12-28] MEDS: ALBUTEROL SULFATE 2.5 MG/3 ML NEBU. NEB SCH ×2 (07:13→11:48)
[2016-12-28] MEDS ORDERED: PANTOPRAZOLE 40 MG TABLET.DR. PO SCH (07:30)
[2016-12-28] MEDS: ASPIRIN ENTERIC COATED 81 MG TABLET.DR. PO SCH (08:42)
[2016-12-28] MEDS: DILTIAZEM HCL 180 MG CAP.ER.24H PO SCH (08:42)
[2016-12-28] MEDS: GABAPENTIN 400 MG CAPSULE. PO SCH ×2 (08:42→14:00)
[2016-12-28] MEDS: NYSTATIN 100,000 UNIT/GM TOPICAL CREAM 15GM TUBE. TP SCH (08:46)
[2016-12-28] MEDS: INSULIN ASPART 300 UNITS/3 ML INSULN.PEN SQ SCH ×2 (08:46→12:00)
[2016-12-28] MEDS ORDERED: FERROUS SULFATE 325 MG TABLET. PO SCH (09:00)
[2016-12-28] MEDS ORDERED: NON FORMULARY ITEM (Liraglutide (Victoza 3-Pak) 1.8 MG) SQ SCH (09:00)
[2016-12-28] MEDS ORDERED: DIAZEPAM 5 MG TABLET PO SCH (09:00)
[2016-12-28] MEDS ORDERED: DILTIAZEM HCL 120 MG CAP.ER.24H PO SCH (09:00)
[2016-12-28] MEDS ORDERED: ESCITALOPRAM 5 MG TABLET. PO SCH (09:00)
[2016-12-28] MEDS ORDERED: CETIRIZINE HCL 10 MG TABLET. PO SCH (09:00)
[2016-12-28 10:40] VITALS: BP 156/78
[2016-12-28] MEDS: ONDANSETRON PF 4 MG/2 ML VIAL. IV PRN (11:26)
--- NOTE | 2016-12-28 11:43 | PDOC ---
PROGRESS NOTES Chief Complaint Chief Complaint cc: tachycardia A/P 1. Tachyarrhythmia: HX of ? afib, rate controlled, sinu 2. CAD: stable. 3. DM, II: Stable. 4. Hypertension, stable. 5. Obesity Plan Monitor on telemetry, Cardizem dos increased to 180. Continue current management out pt event monitor cardiology following History of Present Illness History of Present Illness no complains no chest pain no fever Vitals Vitals Vital Signs Date Time Temp Pulse Resp B/P Pulse Ox O2 Delivery O2 Flow Rate FiO2 12/28/16 10:40 97.9 101 18 156/78 96 Room Air 97.9 Physical Exam General: Alert, Oriented X3 Heart: Normal S1, Normal S2 Lungs: Wheezing Abdomen: Normal bowel sounds, Soft Labs LABS Laboratory Tests Test 12/27/16 16:39 12/27/16 17:43 12/27/16 20:31 12/27/16 23:18 Glucose (Fingerstick) 126mg/dL (70-99) 142mg/dL (70-99) Troponin I Quantitative 0.225ng/mL (0.000-0.055) 0.142ng/mL (0.000-0.055) Test 12/28/16 03:02 12/28/16 04:20 12/28/16 07:25 Glucose (Fingerstick) 169mg/dL (70-99) 244mg/dL (70-99) White Blood Count 10.7x10^3/uL (4.0-11.0) Red Blood Count 4.49x10^6/uL (3.50-5.40) Hemoglobin 12.0g/dL (12.0-15.5) Hematocrit 36.4% (36.0-47.0) Mean Corpuscular Volume 81fL (79-100) Mean Corpuscular Hemoglobin 27pg (25-35) Mean Corpuscular Hemoglobin Concent 33g/dL (31-37) Red Cell Distribution Width 21.1% (11.5-14.5) Platelet Count 280x10^3/uL (140-400) Neutrophils (%) (Auto) 62% (31-73) Lymphocytes (%) (Auto) 31% (24-48) Monocytes (%) (Auto) 6% (0-9) Eosinophils (%) (Auto) 1% (0-3) Basophils (%) (Auto) 1% (0-3) Neutrophils # (Auto) 6.6x10^3uL (1.8-7.7) Lymphocytes # (Auto) 3.3x10^3/uL (1.0-4.8) Monocytes # (Auto) 0.6x10^3/uL (0.0-1.1) Eosinophils # (Auto) 0.1x10^3/uL (0.0-0.7) Basophils # (Auto) 0.1x10^3/uL (0.0-0.2) Sodium Level 146mmol/L (136-145) Potassium Level 3.9mmol/L (3.5-5.1) Chloride Level 107mmol/L (98-107) Carbon Dioxide Level 30mmol/L (21-32) Anion Gap 9 (6-14) Blood Urea Nitrogen 17mg/dL (7-20) Creatinine 1.0mg/dL (0.6-1.0) Estimated GFR (Cockcroft-Gault) 60.5 Glucose Level 198mg/dL (70-99) Calcium Level 8.8mg/dL (8.5-10.1) Assessment and Plan Assessmemt and Plan Problems Medical Problems: (1) Palpitations Status: Acute Problems: Comment Review of Relevant I have reviewed the following items emery (where applicable) has been applied. Labs Laboratory Tests Test 12/27/16 09:50 12/27/16 11:35 12/27/16 16:39 12/27/16 17:43 White Blood Count 10.9x10^3/uL (4.0-11.0) Red Blood Count 5.16x10^6/uL (3.50-5.40) Hemoglobin 13.9g/dL (12.0-15.5) Hematocrit 41.5% (36.0-47.0) Mean Corpuscular Volume 80fL (79-100) Mean Corpuscular Hemoglobin 27pg (25-35) Mean Corpuscular Hemoglobin Concent 34g/dL (31-37) Red Cell Distribution Width 21.0% (11.5-14.5) Platelet Count 309x10^3/uL (140-400) Neutrophils (%) (Auto) 74% (31-73) Lymphocytes (%) (Auto) 19% (24-48) Monocytes (%) (Auto) 5% (0-9) Eosinophils (%) (Auto) 1% (0-3) Basophils (%) (Auto) 1% (0-3) Neutrophils # (Auto) 8.1x10^3uL (1.8-7.7) Lymphocytes # (Auto) 2.1x10^3/uL (1.0-4.8) Monocytes # (Auto) 0.5x10^3/uL (0.0-1.1) Eosinophils # (Auto) 0.1x10^3/uL (0.0-0.7) Basophils # (Auto) 0.1x10^3/uL (0.0-0.2) Platelet Estimate Adequate (ADEQUATE) Anisocytosis Present Prothrombin Time 11.8SEC (11.7-14.0) Prothromb Time International Ratio 0.9 (0.8-1.1) D-Dimer (Abiola) 0.26ug/mlFEU (0.00-0.50) Sodium Level 143mmol/L (136-145) Potassium Level 4.1mmol/L (3.5-5.1) Chloride Level 104mmol/L (98-107) Carbon Dioxide Level 28mmol/L (21-32) Anion Gap 11 (6-14) Blood Urea Nitrogen 14mg/dL (7-20) Creatinine 0.9mg/dL (0.6-1.0) Estimated GFR (Cockcroft-Gault) 68.3 Glucose Level 124mg/dL (70-99) Calcium Level 9.8mg/dL (8.5-10.1) Magnesium Level 1.7mg/dL (1.8-2.4) Total Bilirubin 0.3mg/dL (0.2-1.0) Direct Bilirubin 0.1mg/dL (0.0-0.2) Aspartate Amino Transf (AST/SGOT) 20U/L (15-37) Alanine Aminotransferase (ALT/SGPT) 27U/L (14-59) Alkaline Phosphatase 120U/L (46-116) Creatine Kinase 32U/L (26-192) Creatine Kinase MB (Mass) 0.9ng/mL (0.0-3.6) Creatine Kinase MB Relative Index % (0-4) Troponin I Quantitative 0.042ng/mL (0.000-0.055) 0.225ng/mL (0.000-0.055) NB-Hbv-V-Type Natriuretic Peptide 115pg/mL (0-124) Total Protein 8.0g/dL (6.4-8.2) Albumin 3.6g/dL (3.4-5.0) Thyroid Stimulating Hormone (TSH) 1.130uIU/mL (0.358-3.74) Urine Collection Type Unknown Urine Color Yellow Urine Clarity Clear Urine pH 6.0 Urine Specific [place] 1.020 Urine Protein 100mg/dL (NEG-TRACE) Urine Glucose (UA) Negativemg/dL (NEG) Urine Ketones (Stick) Negativemg/dL (NEG) Urine Blood Negative (NEG) Urine Nitrite Negative (NEG) Urine Bilirubin Negative (NEG) Urine Urobilinogen Dipstick 0.2mg/dL (0.2 mg/dL) Urine Leukocyte Esterase Negative (NEG) Urine RBC 0/HPF (0-2) Urine WBC 1-4/HPF (0-4) Urine Squamous Epithelial Cells Many/LPF Urine Bacteria Few/HPF (0-FEW) Urine Mucus Slight/LPF Urine Opiates Screen Neg (NEG) Urine Methadone Screen Neg (NEG) Urine Barbiturates Neg (NEG) Urine Phencyclidine Screen Neg (NEG) Urine Amphetamine/Methamphetamine Neg (NEG) Urine Benzodiazepines Screen Neg (NEG) Urine Cocaine Screen Neg (NEG) Urine Cannabinoids Screen Neg (NEG) Urine Ethyl Alcohol Neg (NEG) Glucose (Fingerstick) 126mg/dL (70-99) Test 12/27/16 20:31 12/27/16 23:18 12/28/16 03:02 12/28/16 04:20 Glucose (Fingerstick) 142mg/dL (70-99) 169mg/dL (70-99) Troponin I Quantitative 0.142ng/mL (0.000-0.055) White Blood Count 10.7x10^3/uL (4.0-11.0) Red Blood Count 4.49x10^6/uL (3.50-5.40) Hemoglobin 12.0g/dL (12.0-15.5) Hematocrit 36.4% (36.0-47.0) Mean Corpuscular Volume 81fL (79-100) Mean Corpuscular Hemoglobin 27pg (25-35) Mean Corpuscular Hemoglobin Concent 33g/dL (31-37) Red Cell Distribution Width 21.1% (11.5-14.5) Platelet Count 280x10^3/uL (140-400) Neutrophils (%) (Auto) 62% (31-73) Lymphocytes (%) (Auto) 31% (24-48) Monocytes (%) (Auto) 6% (0-9) Eosinophils (%) (Auto) 1% (0-3) Basophils (%) (Auto) 1% (0-3) Neutrophils # (Auto) 6.6x10^3uL (1.8-7.7) Lymphocytes # (Auto) 3.3x10^3/uL (1.0-4.8) Monocytes # (Auto) 0.6x10^3/uL (0.0-1.1) Eosinophils # (Auto) 0.1x10^3/uL (0.0-0.7) Basophils # (Auto) 0.1x10^3/uL (0.0-0.2) Sodium Level 146mmol/L (136-145) Potassium Level 3.9mmol/L (3.5-5.1) Chloride Level 107mmol/L (98-107) Carbon Dioxide Level 30mmol/L (21-32) Anion Gap 9 (6-14) Blood Urea Nitrogen 17mg/dL (7-20) Creatinine 1.0mg/dL (0.6-1.0) Estimated GFR (Cockcroft-Gault) 60.5 Glucose Level 198mg/dL (70-99) Calcium Level 8.8mg/dL (8.5-10.1) Test 12/28/16 07:25 Glucose (Fingerstick) 244mg/dL (70-99) Laboratory Tests Test 12/27/16 16:39 12/27/16 17:43 12/27/16 20:31 12/27/16 23:18 Glucose (Fingerstick) 126mg/dL (70-99) 142mg/dL (70-99) Troponin I Quantitative 0.225ng/mL (0.000-0.055) 0.142ng/mL (0.000-0.055) Test 12/28/16 03:02 12/28/16 04:20 12/28/16 07:25 Glucose (Fingerstick) 169mg/dL (70-99) 244mg/dL (70-99) White Blood Count 10.7x10^3/uL (4.0-11.0) Red Blood Count 4.49x10^6/uL (3.50-5.40) Hemoglobin 12.0g/dL (12.0-15.5) Hematocrit 36.4% (36.0-47.0) Mean Corpuscular Volume 81fL (79-100) Mean Corpuscular Hemoglobin 27pg (25-35) Mean Corpuscular Hemoglobin Concent 33g/dL (31-37) Red Cell Distribution Width 21.1% (11.5-14.5) Platelet Count 280x10^3/uL (140-400) Neutrophils (%) (Auto) 62% (31-73) Lymphocytes (%) (Auto) 31% (24-48) Monocytes (%) (Auto) 6% (0-9) Eosinophils (%) (Auto) 1% (0-3) Basophils (%) (Auto) 1% (0-3) Neutrophils # (Auto) 6.6x10^3uL (1.8-7.7) Lymphocytes # (Auto) 3.3x10^3/uL (1.0-4.8) Monocytes # (Auto) 0.6x10^3/uL (0.0-1.1) Eosinophils # (Auto) 0.1x10^3/uL (0.0-0.7) Basophils # (Auto) 0.1x10^3/uL (0.0-0.2) Sodium Level 146mmol/L (136-145) Potassium Level 3.9mmol/L (3.5-5.1) Chloride Level 107mmol/L (98-107) Carbon Dioxide Level 30mmol/L (21-32) Anion Gap 9 (6-14) Blood Urea Nitrogen 17mg/dL (7-20) Creatinine 1.0mg/dL (0.6-1.0) Estimated GFR (Cockcroft-Gault) 60.5 Glucose Level 198mg/dL (70-99) Calcium Level 8.8mg/dL (8.5-10.1) Medications Current Medications Diltiazem HCl (Cardizem) 10 mg 1X ONCE IVP Last administered on 12/27/16 11: 49; Start 12/27/16 at 11:30; Stop 12/27/16 at 11:31; Status DC Ondansetron HCl (Zofran) 4 mg PRN Q8HRS PRN IV NAUSEA/VOMITING Last administered on 12/28/16 11:26; Start 12/27/16 at 12:00; Stop 12/28/16 at 11:59 Aspirin (Ecotrin) 81 mg DAILY PO Last administered on 12/28/16 08:42; Start at 16:00 Atorvastatin Calcium (Lipitor) 20 mg QHS PO Last administered on 12/27/16 20: 41; Start 12/27/16 at 21:00 Diltiazem HCl 180 mg 180 mg DAILY PO Last administered on 12/28/16 08:42; Start 12/27/16 at 16:00 Magnesium Sulfate/ Dextrose (Magnesium Sulfate PREMIX 2GM) 50 ml @ 25 mls/hr 1X ONCE IV Last administered on 12/27/16 16:10; Start 12/27/16 at 16:30; Stop 12/27/16 at 18:29; Status DC Acetaminophen (Tylenol) 650 mg PRN Q6HRS PRN PO MILD PAIN / TEMP Last administered on 12/27/16 19:04; Start 12/27/16 at 19:00 Acetaminophen/ Hydrocodone Bitart (Lortab 5/325) 1 tab PRN Q4HRS PRN PO MODERATE PAIN Last administered on 12/28/16 03:00; Start 12/27/16 at 19:00 Diazepam (Valium) 5 mg DAILY PO Last administered on 12/28/16 08:42; Start at 09:00 Diltiazem HCl (Cardizem 24hr Cd) 120 mg DAILY PO ; Start 12/28/16 at 09:00; Status UNV Escitalopram Oxalate (Lexapro) 5 mg DAILY PO Last administered on 12/28/16 08: 41; Start 12/28/16 at 09:00 Ferrous Sulfate (Feosol) 325 mg DAILY PO Last administered on 12/28/16 08:42; Start 12/28/16 at 09:00 Acetaminophen/ Hydrocodone Bitart (Lortab 5/325) 2 tab PRN Q6HRS PRN PO SEVERE PAIN Last administered on 12/28/16 08:50; Start 12/27/16 at 19:45 Nystatin (Mycostatin) 1 vianney BID TP ; Start 12/27/16 at 21:00 Tizanidine HCl (Zanaflex) 8 mg PRN TID PRN PO MUSCLE SPASMS; Start 12/27/16 at 19:45 Zolpidem Tartrate (Ambien) 5 mg PRN QHS PRN PO INSOMNIA Last administered on 20:41; Start 12/27/16 at 19:45 Non-Formulary Medication 2.5 mg Q4HRS PRN NEB SHORTNESS OF BREATH; Start at 19:45; Status UNV Non-Formulary Medication 2 puff BID IH ; Start 12/27/16 at 21:00; Status UNV Cetirizine HCl (Zyrtec) 10 mg DAILY PO Last administered on 12/28/16 08:42; Start 12/28/16 at 09:00 Gabapentin (Neurontin) 800 mg TID PO Last administered on 12/28/16 08:42; Start 12/27/16 at 21:00 Insulin Aspart (Novolog) 27 units TIDWMEALS SQ Last administered on 12/28/16 08:46; Start 12/27/16 at 20:00 Insulin Detemir (Levemir) 70 units QHS SQ Last administered on 12/27/16 20:46 ; Start 12/27/16 at 21:00 Non-Formulary Medication 1.8 mg DAILY SQ ; Start 12/28/16 at 09:00; Status UNV Pantoprazole Sodium (Protonix) 40 mg DAILYAC PO Last administered on 12/28/16 08:42; Start 12/28/16 at 07:30 Budesonide (Pulmicort) 0.5 mg RTBID NEB Last administered on 12/28/16 07:13; Start 12/27/16 at 20:00 Albuterol Sulfate (Ventolin Neb Soln) 2.5 mg RTQID NEB Last administered on 07:13; Start 12/27/16 at 20:00 Albuterol Sulfate (Ventolin Neb Soln) 2.5 mg PRN Q4HRS PRN NEB SHORTNESS OF BREATH; Start 12/27/16 at 19:45 Active Scripts Active Nystatin 15 Gm Cream..g. 1 [place] TP BID 10 Days Ambien (Zolpidem Tartrate) 5 Mg Tablet 5 Mg PO PRN QHS PRN [place] 5-325 Tablet (Acetaminophen/Hydrocodone Bitart) 1 Each Tablet 1-2 Tab PO Q4-6HRS Reported Tizanidine Hcl 4 Mg Tablet 8 Mg PO TID PRN Aspirin Ec (Aspirin) 81 Mg Tablet.dr 81 Mg PO DAILY Gabapentin 800 Mg Tablet 800 Mg PO TID Victoza 3-[place] (Liraglutide) 0.6 Mg/0.1 Ml Pen.injctr 1.8 Mg SQ DAILY Omeprazole 40 Mg Capsule.dr 40 Mg PO DAILY Iron (Ferrous Sulfate) 325 Mg Tablet 325 Mg PO DAILY Valium (Diazepam) 5 Mg Tablet 5 Mg PO DAILY Lexapro (Escitalopram Oxalate) 5 Mg Tablet 5 Mg PO DAILY Fexofenadine Hcl 180 Mg Tablet 180 Mg PO DAILY Albuterol Sulfate Conc Neb Soln (Albuterol Sulfate) 2.5 Mg/0.5 Ml Vial.neb 2.5 Mg NEB Q4HRS PRN Simvastatin 40 Mg Tablet 40 Mg PO HS Diltiazem 24HR Cd (Diltiazem Hcl) 120 Mg Cap.er.24h 120 Mg PO DAILY Symbicort 160-4.5 Mcg Inhaler (Budesonide/Formoterol Fumarate) 10.2 Gm Hfa.aer.ad 2 Puff IH BID Novolog (Insulin Aspart) 100 Unit/1 Ml Cartridge 27 Unit SQ TIDAC Lantus (Insulin Glargine,Hum.rec.anlog) 100 Unit/1 Ml Vial 70 Unit SQ HS Vitals/I & O Vital Sign - Last 24 Hours 12/27/16 12/27/16 12/27/16 12/27/16 11:46 11:49 14:30 15:15 Temp 100.0 100.0 Pulse 123 123 116 119 Resp 16 20 20 B/P 113/89 113/89 113/89 124/84 Pulse Ox 98 95 98 O2 Delivery Room Air Room Air Room Air 12/27/16 12/27/16 12/27/16 12/27/16 15:15 16:10 19:24 20:00 Temp 98.6 98.6 Pulse 119 104 Resp 18 B/P 124/84 145/89 Pulse Ox 100 O2 Delivery Room Air Room Air Room Air 12/27/16 12/27/16 12/27/16 12/28/16 20:41 21:27 23:11 02:36 Temp 98.5 98.5 Pulse 101 98 Resp 18 18 18 B/P 136/84 121/71 Pulse Ox 98 96 97 O2 Delivery Room Air Room Air Room Air 12/28/16 12/28/16 12/28/16 12/28/16 03:00 04:00 07:00 07:10 Temp 97.7 97.7 Pulse 90 Resp 18 18 16 B/P 154/77 Pulse Ox 97 97 97 97 O2 Delivery Room Air Room Air Room Air Room Air 12/28/16 12/28/16 12/28/16 12/28/16 08:42 08:50 10:05 10:40 Temp 97.9 97.9 Pulse 90 101 Resp 18 B/P 154/77 156/78 Pulse Ox 97 97 96 O2 Delivery Room Air Room Air Room Air Intake and Output 12/27/16 12/27/16 12/28/16 14:59 22:59 06:59 Intake Total 200 ml 800 ml Balance 200 ml 800 ml MARLENA CHAVIS MD Dec 28, 2016 11:43
--- NOTE | 2016-12-28 12:05 | PDOC ---
CARDIO Progress Notes Date and Time Date of Service 12/28/2016 Time of Evaluation 1150 Subjective Subjective: No Chest Pain, No shortness of breath, No Palpitations, No Dizziness, Other (slight nauseated today) Vitals Vitals Vital Signs Date Time Temp Pulse Resp B/P Pulse Ox O2 Delivery O2 Flow Rate FiO2 12/28/16 11:48 Room Air 12/28/16 10:40 97.9 101 18 156/78 96 97.9 Weight Weight [ ] Input and Output Intake and Output Intake and Output 12/28/16 07:00 Intake Total 1000 ml Balance 1000 ml Intake Oral 1000 ml # Voids 2 Laboratory Labs Laboratory Tests Test 12/27/16 16:39 12/27/16 17:43 12/27/16 20:31 12/27/16 23:18 Glucose (Fingerstick) 126mg/dL (70-99) 142mg/dL (70-99) Troponin I Quantitative 0.225ng/mL (0.000-0.055) 0.142ng/mL (0.000-0.055) Test 12/28/16 03:02 12/28/16 04:20 12/28/16 07:25 Glucose (Fingerstick) 169mg/dL (70-99) 244mg/dL (70-99) White Blood Count 10.7x10^3/uL (4.0-11.0) Red Blood Count 4.49x10^6/uL (3.50-5.40) Hemoglobin 12.0g/dL (12.0-15.5) Hematocrit 36.4% (36.0-47.0) Mean Corpuscular Volume 81fL (79-100) Mean Corpuscular Hemoglobin 27pg (25-35) Mean Corpuscular Hemoglobin Concent 33g/dL (31-37) Red Cell Distribution Width 21.1% (11.5-14.5) Platelet Count 280x10^3/uL (140-400) Neutrophils (%) (Auto) 62% (31-73) Lymphocytes (%) (Auto) 31% (24-48) Monocytes (%) (Auto) 6% (0-9) Eosinophils (%) (Auto) 1% (0-3) Basophils (%) (Auto) 1% (0-3) Neutrophils # (Auto) 6.6x10^3uL (1.8-7.7) Lymphocytes # (Auto) 3.3x10^3/uL (1.0-4.8) Monocytes # (Auto) 0.6x10^3/uL (0.0-1.1) Eosinophils # (Auto) 0.1x10^3/uL (0.0-0.7) Basophils # (Auto) 0.1x10^3/uL (0.0-0.2) Sodium Level 146mmol/L (136-145) Potassium Level 3.9mmol/L (3.5-5.1) Chloride Level 107mmol/L (98-107) Carbon Dioxide Level 30mmol/L (21-32) Anion Gap 9 (6-14) Blood Urea Nitrogen 17mg/dL (7-20) Creatinine 1.0mg/dL (0.6-1.0) Estimated GFR (Cockcroft-Gault) 60.5 Glucose Level 198mg/dL (70-99) Calcium Level 8.8mg/dL (8.5-10.1) Physical Exam HEENT: Neck Supple W Full Motion Chest: Symmetric LUNGS: Clear to Auscultation Heart: S1S2, RRR (SR) Abdomen: Soft N/T Extremities: No Edema, No Calf Tenderness Neurology: alert, oriented, follow commands Assessment Assessment 1. Tachyarrhythmia: possible atrial tach. Likely cause of mild trop elevation. SR no significant ectopies. 2. CAD: stable 3. DM, II 4. Hypertension 5. Hyperlipidemia Recommendations 1. Continue with current dose cardizem 2. Outpt event monitor 3. F/u in office in 5 weeks. 4. Continue secondary prevention DALTON GUDINO APRN Dec 28, 2016 12:05
[2016-12-28] MEDS ORDERED: DILT180C90 PO (12:12)
== END 2016-12-28 14:25 | disposition home or self-care (01) ==
LOC: ER 09:13 → INTOOBSV 11:33 → ED HOLD 11:33 → 6 SOUTH 15:10
PROVIDERS: ADMIT Internal Medicine; ATTEND Internal Medicine
DX: R00.2 Palpitations (principal); R07.9 Chest pain, unspecified; R00.0 Tachycardia, unspecified; I48.91 Unspecified atrial fibrillation; J45.909 Unspecified asthma, uncomplicated; F32.9 Major depressive disorder, single episode, unspecified; E11.40 Type 2 diabetes mellitus with diabetic neuropathy, unspecified; I10 Essential (primary) hypertension; I25.10 Atherosclerotic heart disease of native coronary artery without angina pectoris; E78.5 Hyperlipidemia, unspecified; G43.909 Migraine, unspecified, not intractable, without status migrainosus; G25.81 Restless legs syndrome; F41.9 Anxiety disorder, unspecified; M19.90 Unspecified osteoarthritis, unspecified site; E83.42 Hypomagnesemia; E66.9 Obesity, unspecified; E78.00 Pure hypercholesterolemia, unspecified; Z90.710 Acquired absence of both cervix and uterus; Z82.49 Family history of ischemic heart disease and other diseases of the circulatory system
CPT/HCPCS: 36415; 71010; 80048; 80076; 81001; 82553; 82947; 83735; 83880; 84443; 84484; 85007; 85027; 85379; 85610; 93005; 94640; 96365; 96366; 96372; 96375; 96376; 99285; G0378; G0481; J1815; J2405; J3490; J7060; G0379

== ENCOUNTER 2017-01-15 15:32 | Emergency (ER) | payer OTHER ==
[~2017-01-15 15:32] MED LIST changes: +DILT180C90 PO; +TIZA4TAB PO
[2017-01-15] MEDS ORDERED: diphenhydrAMINE 50 MG/ML VIAL IVP ONE (18:00)
[2017-01-15] MEDS ORDERED: PROCHLORPERAZINE 10 MG/2 ML VIAL. IV ONE (18:00)
[2017-01-15] MEDS ORDERED: KETOROLAC TROMETHAMINE 30 MG/ML INJ. IV ONE (18:00)
--- NOTE | 2017-01-15 19:23 | PHYS DOC ---
Past Medical History Past Medical History: A-Fib, Asthma, Depression, Diabetes-Type II, High Cholesterol, Hypertension Additional Past Medical Histor: NEUROPATHY Past Surgical History: Hysterectomy Alcohol Use: None Drug Use: None Adult General Chief Complaint Chief Complaint: HEADACHE HPI HPI Patient is a 41 year old female with a history of headaches and hypertension who presents with gradual onset headache, bilateral, constant, now with nausea and photophobia. States her blood pressure has been high as well and is concerned it is causing headache. She denies fever or chills, emesis, dizziness , vision changes, numbness, tingling, weakness, chest pain, dyspnea, palpitations, abdominal pain, dysuria, diarrhea. Review of Systems Review of Systems Constitutional: Denies fever or chills [] Eyes: Denies change in visual acuity, redness, or eye pain [] HENT: Denies nasal congestion or sore throat [] Respiratory: Denies cough or shortness of breath [] Cardiovascular: No additional information not addressed in HPI [] GI: Denies abdominal pain, nausea, vomiting, bloody stools or diarrhea [] : Denies dysuria or hematuria [] Musculoskeletal: Denies back pain or joint pain [] Integument: Denies rash or skin lesions [] Neurologic: Denies focal weakness or sensory changes [] Endocrine: Denies polyuria or polydipsia [] Current Medications Current Medications Current Medications Medications (Trade) Dose Ordered Sig/Mo Start Time Stop Time Status Last Admin Dose Admin Diphenhydramine HCl (Benadryl) 25 mg 1X ONCE 01/15/17 18:00 01/15/17 18:01 DC 01/15/17 18:13 25 MG Ketorolac Tromethamine (Toradol) 15 mg 1X ONCE 01/15/17 18:00 01/15/17 18:01 DC 01/15/17 18:12 15 MG Prochlorperazine Edisylate (Compazine) 10 mg 1X ONCE 01/15/17 18:00 01/15/17 18:01 DC 01/15/17 18:15 10 MG Allergies Allergies Allergies Coded Allergies Type Severity Reaction Last Updated Verified carbidopa Allergy Intermediate 10/12/16 Yes Physical Exam Physical Exam Constitutional: Well developed, well nourished, no acute distress, non-toxic appearance. [] HENT: Normocephalic, atraumatic, bilateral external ears normal, oropharynx moist, nose normal. [] Eyes: PERRLA, EOMI. [] Neck: Normal range of motion, supple. [] Cardiovascular:Heart rate regular rhythm [] Lungs & Thorax: Bilateral breath sounds clear to auscultation [] Abdomen: Bowel sounds normal, soft, no tenderness. [] Skin: Warm, dry, no erythema, no rash. [] Back: Normal range of motion. [] Extremities: No tenderness, ROM intact, no edema. [] Neurologic: Alert and oriented X 3, normal motor function, normal sensory function, no focal deficits noted, cranial nerves II through XII intact. [] Psychologic: Affect normal, judgement normal, mood normal. [] Current Patient Data Vital Signs Vital Signs Date Time Temp Pulse Resp B/P Pulse Ox O2 Delivery O2 Flow Rate FiO2 01/15/17 19:40 118 16 111/74 98 Room Air 01/15/17 17:12 98.3 98.3 Course & Med Decision Making Course & Med Decision Making Pertinent Labs and Imaging studies reviewed. (See chart for details) She feels much better after medications and would like to go home. Return precautions given. She understands and agrees with plan. Dragon Disclaimer Dragon Disclaimer This electronic medical record was generated, in whole or in part, using a voice recognition dictation system. Departure Departure Impression: Primary Impression: Headache Disposition: 01 HOME, SELF-CARE Condition: STABLE Referrals: YASMIN LEIGH MD (PCP) Patient Instructions: General Headache Without Cause, [id number] Additional Instructions: Take Tylenol or ibuprofen as needed for pain. Follow-up with your primary care doctor. Return for any concerns. Problem Qualifiers Primary Impression: Headache Headache type: unspecified Headache chronicity pattern: episodic headache Intractability: not intractable Qualified Code: R51 - Headache Jose Roberto HINOJOSA MD January 15, 2017 19:22
[2017-01-15 19:40] VITALS: BP 111/74
== END 2017-01-15 19:40 | disposition home or self-care (01) ==
LOC: ER 15:32
DX: R51 Headache (principal); E11.40 Type 2 diabetes mellitus with diabetic neuropathy, unspecified; E78.00 Pure hypercholesterolemia, unspecified; F32.9 Major depressive disorder, single episode, unspecified; I10 Essential (primary) hypertension; I48.91 Unspecified atrial fibrillation; J45.909 Unspecified asthma, uncomplicated; Z90.710 Acquired absence of both cervix and uterus; Z88.8 Allergy status to other drugs, medicaments and biological substances
CPT/HCPCS: 96374; 96375; 99284; J0780; J1200; J1885

== ENCOUNTER 2017-02-07 02:51 | Emergency (ER) | payer OTHER ==
[~2017-02-07] VITALS: Ht 162.6 cm; Wt 88.0 kg
--- NOTE | 2017-02-07 03:29 | RAD ---
CT head without contrast TECHNIQUE: [address] imaging skull base to vertex. HISTORY: Headache, hypertension. PQRS statement: CT scans at this facility use dose reduction including either automated exposure control, iterative reconstructions, and /or weight based radiation dosing via mA and kV modification when appropriate to reduce radiation dose to as low as reasonably achievable. FINDINGS: No intracranial hemorrhage, mass, hydrocephalus, extra-axial fluid collections or infarction. No acute ischemic changes. Orbits, paranasal sinuses, mastoids and bones are unremarkable. IMPRESSION: No acute intracranial CT abnormality. Electronically signed by: Corbin Velazquez MD (02/07/2017 3:25 AM)
[2017-02-07] MEDS ORDERED: KETOROLAC TROMETHAMINE 30 MG/ML INJ. IV ONE (03:45)
[2017-02-07] MEDS ORDERED: diphenhydrAMINE 50 MG/ML VIAL IVP ONE (03:45)
[2017-02-07] MEDS ORDERED: METOCLOPRAMIDE HCL 10 MG/2 ML VIAL. IV ONE (03:45)
[2017-02-07] MEDS ORDERED: IV NORMAL SALINE 1000ML BAG 1,000 ML IV ONE (03:45)
[2017-02-07] MEDS ORDERED: DEXAMETHASONE SOD PHOS 20 MG/5 ML VIAL. IV ONE (03:45)
[2017-02-07 04:04] LABS: BASO # 0.1 x10^3/uL (0.0-0.2); BASO % 1 % (0-3); EOS % 0 % (0-3); HEMATOCRIT 40.8 % (36.0-47.0); LYMPH # 1.8 x10^3/uL (1.0-4.8); LYMPH % 17 % (24-48); MEAN CORPUSCULAR HEMOGLOBIN 29 pg (25-35); MEAN CORPUSCULAR HGB CONC 34 g/dL (31-37); MEAN CORPUSCULAR VOLUME 84 fL (79-100); MONO % 4 % (0-9); NEUT % 79 % (31-73); PLATELET COUNT 276 x10^3/uL (140-400); RED BLOOD COUNT 4.87 x10^6/uL (3.50-5.40); RED CELL DISTRIBUTION WIDTH 13.8 % (11.5-14.5); WHITE BLOOD COUNT 11.2 x10^3/uL (4.0-11.0)
[2017-02-07 04:21] LABS: CALCIUM 9.9 mg/dL (8.5-10.1); CREATININE 0.8 mg/dL (0.6-1.0); GFR 78.3; POTASSIUM 3.8 mmol/L (3.5-5.1)
[2017-02-07] MEDS ORDERED: MAGNESIUM SULFATE 1GM 100 ML IV ONE (05:15)
[2017-02-07] MEDS ORDERED: ONDA4TAB7 PO (05:40)
--- NOTE | 2017-02-07 05:40 | PHYS DOC ---
Past Medical History Past Medical History: A-Fib, Asthma, Depression, Diabetes-Type II, High Cholesterol, Hypertension Additional Past Medical Histor: NEUROPATHY Past Surgical History: Hysterectomy Additional Past Surgical Histo: unknown Alcohol Use: None Drug Use: None Adult General Chief Complaint Chief Complaint: HYPERTENSION HPI HPI This is a 41-year-old female who's had worsening migraine type headache for the last several days and noted that her blood pressure was elevated today and took an extra lisinopril prior to arrival. Patient states she's had some nausea and vomiting and photophobia which is typical for her usual migraine type headaches. She states her headache is left-sided. She denies any numbness or tingling or weakness in any of her extremities. She is in no acute distress upon my initial assessment. She does rate her pain in her head a 10 out of 10. She is non-toxic and afebrile. Review of Systems Review of Systems Constitutional: Denies fever or chills [] Eyes: Denies change in visual acuity, redness, or eye pain [] HENT: Denies nasal congestion or sore throat [] Respiratory: Denies cough or shortness of breath [] Cardiovascular: No additional information not addressed in HPI [] GI: Denies abdominal pain, nausea, vomiting, bloody stools or diarrhea [] : Denies dysuria or hematuria [] Musculoskeletal: Denies back pain or joint pain [] Integument: Denies rash or skin lesions [] Neurologic: Denies headache, focal weakness or sensory changes [] Endocrine: Denies polyuria or polydipsia [] Current Medications Current Medications Current Medications Medications (Trade) Dose Ordered Sig/Mo Start Time Stop Time Status Last Admin Dose Admin Dexamethasone Sodium Phosphate (Decadron) 10 mg 1X ONCE 02/07/17 03:45 02/07/17 03:46 DC 02/07/17 04:11 10 MG Diphenhydramine HCl (Benadryl) 25 mg 1X ONCE 02/07/17 03:45 02/07/17 03:46 DC 02/07/17 04:17 25 MG Ketorolac Tromethamine (Toradol) 30 mg 1X ONCE 02/07/17 03:45 02/07/17 03:46 DC 02/07/17 04:13 30 MG Magnesium Sulfate/ Dextrose 100 ml @ 100 mls/hr 1X ONCE 02/07/17 05:15 02/07/17 06:14 02/07/17 05:21 100 MLS/HR Metoclopramide HCl (Reglan) 10 mg 1X ONCE 02/07/17 03:45 02/07/17 03:46 DC 02/07/17 04:15 10 MG Sodium Chloride 1,000 ml @ 1,000 mls/hr 1X ONCE 02/07/17 03:45 02/07/17 04:44 DC 02/07/17 04:09 1,000 MLS/HR Allergies Allergies Allergies Coded Allergies Type Severity Reaction Last Updated Verified carbidopa Allergy Intermediate 10/12/16 Yes Physical Exam Physical Exam Constitutional: Well developed, well nourished, no acute distress, non-toxic appearance. [] HENT: Normocephalic, atraumatic, bilateral external ears normal, oropharynx moist, no oral exudates, nose normal. [] Eyes: PERRLA, EOMI, conjunctiva normal, no discharge. [] Neck: Normal range of motion, no tenderness, supple, no stridor. [] Cardiovascular:Heart rate regular rhythm, no murmur [] Lungs & Thorax: Bilateral breath sounds clear to auscultation [] Abdomen: Bowel sounds normal, soft, no tenderness, no masses, no pulsatile masses. [] Skin: Warm, dry, no erythema, no rash. [] Back: No tenderness, no CVA tenderness. [] Extremities: No tenderness, no cyanosis, no clubbing, ROM intact, no edema. [] Neurologic: Alert and oriented X 3, normal motor function, normal sensory function, no focal deficits noted. [] Psychologic: Affect normal, judgement normal, mood normal. [] Current Patient Data Vital Signs Vital Signs Date Time Temp Pulse Resp B/P (MAP) Pulse Ox O2 Delivery O2 Flow Rate FiO2 02/07/17 06:00 106 18 170/92 (118) 98 Room Air 02/07/17 02:55 97.9 97.9 Lab Values Laboratory Tests Test 02/07/17 03:35 White Blood Count 11.2 x10^3/uL (4.0-11.0) H Red Blood Count 4.87 x10^6/uL (3.50-5.40) Hemoglobin 14.0 g/dL (12.0-15.5) Hematocrit 40.8 % (36.0-47.0) Mean Corpuscular Volume 84 fL (79-100) Mean Corpuscular Hemoglobin 29 pg (25-35) Mean Corpuscular Hemoglobin Concent 34 g/dL (31-37) Red Cell Distribution Width 13.8 % (11.5-14.5) Platelet Count 276 x10^3/uL (140-400) Neutrophils (%) (Auto) 79 % (31-73) H Lymphocytes (%) (Auto) 17 % (24-48) L Monocytes (%) (Auto) 4 % (0-9) Eosinophils (%) (Auto) 0 % (0-3) Basophils (%) (Auto) 1 % (0-3) Neutrophils # (Auto) 8.8 x10^3uL (1.8-7.7) H Lymphocytes # (Auto) 1.8 x10^3/uL (1.0-4.8) Monocytes # (Auto) 0.4 x10^3/uL (0.0-1.1) Eosinophils # (Auto) 0.0 x10^3/uL (0.0-0.7) Basophils # (Auto) 0.1 x10^3/uL (0.0-0.2) Sodium Level 145 mmol/L (136-145) Potassium Level 3.8 mmol/L (3.5-5.1) Chloride Level 100 mmol/L (98-107) Carbon Dioxide Level 34 mmol/L (21-32) H Anion Gap 11 (6-14) Blood Urea Nitrogen 15 mg/dL (7-20) Creatinine 0.8 mg/dL (0.6-1.0) Estimated GFR (Cockcroft-Gault) 78.3 Glucose Level 182 mg/dL (70-99) H Calcium Level 9.9 mg/dL (8.5-10.1) Troponin I Quantitative < 0.017 ng/mL (0.000-0.055) Laboratory Tests 02/07/17 03:35 Laboratory Tests 02/07/17 03:35 EKG EKG EKG as interpreted by me shows a sinus tachycardia with a rate of 105 bpm. There is a leftward axis. There are no acute findings. Radiology/Procedures Radiology/Procedures CT head without contrast TECHNIQUE: [address] imaging skull base to vertex. HISTORY: Headache, hypertension. PQRS statement: CT scans at this facility use dose reduction including either automated exposure control, iterative reconstructions, and /or weight based radiation dosing via mA and kV modification when appropriate to reduce radiation dose to as low as reasonably achievable. FINDINGS: No intracranial hemorrhage, mass, hydrocephalus, extra-axial fluid collections or infarction. No acute ischemic changes. Orbits, paranasal sinuses, mastoids and bones are unremarkable. IMPRESSION: No acute intracranial CT abnormality. Electronically signed by: Rebecca Velazquez MD (02/07/2017 3:25 AM) DICTATED and SIGNED BY: REBECCA VELAZQUEZ MD DATE: 02/07/17 0320 Course & Med Decision Making Course & Med Decision Making Pertinent Labs and Imaging studies reviewed. (See chart for details) This 40-year-old female is having significant migraine type headaches had a CT of her head that was negative. Patient is given a migraine cocktail as well as magnesium dose. Following magnesium, the patient feels improved. Her blood pressure has improved while in the department being monitored to 170/92. She states she feels comfortable going home and will have her blood pressure rechecked by her primary care physician. I gave her strict instruction to return if her headache should worsen. Her laboratory workup was unremarkable including her EKG. Dragon Disclaimer Dragon Disclaimer This electronic medical record was generated, in whole or in part, using a voice recognition dictation system. Departure Departure Impression: Primary Impression: Migraine Disposition: 01 HOME, SELF-CARE Admitting Physician: Other Condition: STABLE Referrals: YASMIN LEIGH MD (PCP) Patient Instructions: Migraine Headache, [id number] Additional Instructions: Please take your medications as prescribed and get plenty of rest. Continue to drink plenty of fluid. Please follow up with your primary doctor in the next several days to have your blood pressure rechecked. Return to the ER if you develop any worsening of your symptoms. Scripts Ondansetron Hcl (ZOFRAN) 4 Mg Tablet 4 MG PO BID Y for NAUSEA/VOMITING, #10 TAB Prov: KAYLI WOODARD DO 02/07/17 KAYLI WOODARD DO February 07, 2017 05:40
[2017-02-07 06:23] VITALS: BP 166/81
--- NOTE | 2017-02-07 06:31 | ACF ---
Admission Forms Criteria HYPERTENSION Clinical Indications for Admission to Inpatient Care ( Place "X" for any and all applicable criteria): Admission is indicated for ANY ONE of the following(1)(2)(3)(4): [ ]I. Hypertensive emergency, with evidence of acute and progressing target organ disease as indicated by ANY ONE of the following: [ ]a) Hypertensive encephalopathy (eg, confusion, altered mental status) [ ]b) Cerebral infarction [ ]c) Intracranial hemorrhage [ ]d) Myocardial ischemia or infarction [ ]e) Pulmonary edema [ ]f) Aortic dissection [ ]g) Seizure [ ]h) Acute renal insufficiency [ ]i) Papilledema [ ]j) Microangiopathic hemolytic anemia [ ]II. Adrenergic crisis (eg, severe hypertension due to pheochromocytoma crisis, cocaine or amphetamine intoxication, or clonidine withdrawal) [ ]III. Severe hypertension (SBP greater than 180 mmHg or DBP greater than 110 mmHg or greater than the 95th percentile for age, gender, and height in pediatric patients) that cannot be controlled (eg, to SBP less than 160 mmHg and DBP less than 100 mmHg in adults) by treatment with oral medication in emergency department or observation care Extended stay beyond goal length of stay may be needed for(11)(12)(13): [ ]a) Persistent hypertensive encephalopathy [ ]b) Continuation of pulmonary edema [ ]c) Recurring or persistent severe hypertension [ ]d) Target organ damage (eg, angina, stroke, aortic dissection) [ ]e) Associated renal insufficiency The original [employer] content created by [employer] has been revised. The portions of the content which have been revised are identified through the use of italic text or in bold, and [facility] has neither reviewed nor approved the modified material. All other unmodified content is copyright [employer]. Please see references footnoted in the original [employer] edition 2016 ANNE EVANS February 07, 2017 06:31
--- NOTE | 2017-02-07 07:15 | RAD ---
Portable chest, 02/07/2017: History: Headache Comparison is made to a study from 12/27/2016. The heart is mildly enlarged. The pulmonary vascularity is normal. No pulmonary infiltrates are seen. There is no evidence of pleural fluid. IMPRESSION: 1. Mild cardiomegaly. 2. No acute abnormality is detected.
--- NOTE | 2017-02-07 07:47 | EKG ---
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
== END 2017-02-07 06:30 | disposition home or self-care (01) ==
LOC: ER 02:51
DX: G43.909 Migraine, unspecified, not intractable, without status migrainosus (principal); I48.91 Unspecified atrial fibrillation; J45.909 Unspecified asthma, uncomplicated; F32.9 Major depressive disorder, single episode, unspecified; E11.40 Type 2 diabetes mellitus with diabetic neuropathy, unspecified; E78.00 Pure hypercholesterolemia, unspecified; I10 Essential (primary) hypertension; Z88.8 Allergy status to other drugs, medicaments and biological substances
CPT/HCPCS: 36415; 70450; 71010; 80048; 84484; 85027; 93005; 96361; 96365; 96375; 99285; J1100; J1200; J1885; J2765; J3475; J7030

== ENCOUNTER 2017-03-22 18:40 | Emergency (ER) | payer OTHER ==
[~2017-03-22] VITALS: Ht 162.6 cm; Wt 88.9 kg
[~2017-03-22 18:40] MED LIST changes: +ASPI-612 PO; -ASPI81TA9 PO; +DILT120C80 PO; -DILT120C97 PO; +DILT180C73 PO; -DILT180C90 PO; -ESCI5TAB8 PO; +FERR-36 PO; -FERR325T31 PO; +FEXO180T16 PO; -FEXO180T5 PO; +LEXAPRO5 MG PO; +ONDA4TAB7 PO
[2017-03-22] MEDS ORDERED: PROCHLORPERAZINE 10 MG/2 ML VIAL. IV ONE (19:30)
[2017-03-22] MEDS ORDERED: fentaNYL PF VIAL 100 MCG/2 ML VIAL IV ONE (19:30)
[2017-03-22] MEDS ORDERED: IV NORMAL SALINE 1000ML BAG 1,000 ML IV ONE (19:30)
[2017-03-22 19:31] LABS: BASO # 0.1 x10^3/uL (0.0-0.2); BASO % 1 % (0-3); EOS % 0 % (0-3); HEMATOCRIT 42.1 % (36.0-47.0); HEMOGLOBIN 14.3 g/dL (12.0-15.5); LYMPH # 2.2 x10^3/uL (1.0-4.8); LYMPH % 15 % (24-48); MEAN CORPUSCULAR HEMOGLOBIN 29 pg (25-35); MEAN CORPUSCULAR HGB CONC 34 g/dL (31-37); MEAN CORPUSCULAR VOLUME 86 fL (79-100); MONO % 3 % (0-9); NEUT % 81 % (31-73); PLATELET COUNT 309 x10^3/uL (140-400); RED BLOOD COUNT 4.88 x10^6/uL (3.50-5.40); WHITE BLOOD COUNT 14.7 x10^3/uL (4.0-11.0)
[2017-03-22 19:42] LABS: CALCIUM 9.8 mg/dL (8.5-10.1); CREATININE 0.7 mg/dL (0.6-1.0); GFR 91.3; POTASSIUM 3.4 mmol/L (3.5-5.1)
[2017-03-22 19:48] LABS: ALBUMIN 3.7 g/dL (3.4-5.0); ALBUMIN/GLOBULIN RATIO 0.9 (1.0-1.7); TOTAL BILIRUBIN 0.3 mg/dL (0.2-1.0); TOTAL PROTEIN 7.9 g/dL (6.4-8.2)
[2017-03-22 20:26] LABS: BILIRUBIN,URINE NEGATIVE (NEG); GLUCOSE,URINE NEGATIVE (NEG); NITRITE,URINE NEGATIVE (NEG); PROTEIN,URINE NEGATIVE (NEG-TRACE); UROBILINOGEN,URINE 0.2 mg/dL (0.2 mg/dL)
[2017-03-22 20:42] LABS: BACTERIA,URINE 0 /HPF (0-FEW); RBC,URINE 0 /HPF (0-2); SQUAMOUS EPITHELIAL CELL,UR OCC /LPF; WBC,URINE OCC /HPF (0-4)
[2017-03-22] MEDS ORDERED: CONTRAST GIVEN MC PRN (21:15)
--- NOTE | 2017-03-22 21:27 | RAD ---
Indication: Severe upper abdominal pain with nausea, vomiting and diarrhea. Axial imaging through the abdomen and pelvis was performed after the administration of intravenous contrast. One or more of the following individualized dose reduction techniques were utilized for this examination: 1. Automated exposure control 2. Adjustment of the mA and/or kV according to patient size 3. Use of iterative reconstruction technique The lung bases are clear. No discrete liver mass is detected. The gallbladder is unremarkable. The pancreas and spleen are unremarkable. No adrenal mass is detected. The kidneys are unremarkable. The aorta is nonaneurysmal. The small and large bowel loops are normal caliber. The appendix is unremarkable. There is no ascites. No acute inflammatory process is seen. The bladder is unremarkable. IMPRESSION: No acute abnormality is detected. Electronically signed by: Trevor Gilman MD (03/22/2017 9:24 PM) [facility]
[2017-03-22] MEDS ORDERED: IOHEXOL 300 MG/ML 75 ML VIAL IV ONE (21:30)
--- NOTE | 2017-03-22 21:32 | ED.ADGEN ---
Past Medical History Past Medical History: A-Fib, Asthma, Depression, Diabetes-Type II, High Cholesterol, Hypertension Additional Past Medical Histor: NEUROPATHY Past Surgical History: Hysterectomy Additional Past Surgical Histo: unknown Alcohol Use: None Drug Use: None Adult General Chief Complaint Chief Complaint: ABDOMINAL PAIN HPI HPI Patient is a 41 year old depression, dependent diabetes, A. fib, dyslipidemia, hypertension who presents with abdominal pain, epigastric radiating to the middle of back with nausea and vomiting, multiple episodes starting last night and multiple episodes of watery diarrhea for the past 2-3 weeks. She reports dizziness and lightheadedness. Reports left-sided retro-orbital headache similar to migraine headache. Denies fever chills, sweats. Emesis described as bilious. No blood in stools or dark tarry stools. No blood in stools or dark tarry stools. Patient recently completed a course of Bactrim for diabetic foot ulcer. No prior abdominal history. Patient did have hysterectomy in October of this year. Review of Systems Review of Systems Review of symptoms as per history of present illness. All other review symptoms are negative. Current Medications Current Medications Current Medications Medications (Trade) Dose Ordered Sig/Mo Start Time Stop Time Status Last Admin Dose Admin Fentanyl Citrate (Fentanyl 2ml Vial) 50 mcg 1X ONCE 03/22/17 19:30 03/22/17 19:31 DC 03/22/17 19:44 50 MCG Haloperidol Lactate (Haldol) 2.5 mg 1X ONCE 03/22/17 22:00 03/22/17 22:01 DC 03/22/17 21:36 2.5 MG Info (Do NOT chart on this entry -- for MONITORING) 1 each PRN DAILY PRN 03/22/17 21:15 03/23/17 00:15 DC Iohexol (Omnipaque 300 Mg/ml) 75 ml 1X ONCE 03/22/17 21:30 03/22/17 21:31 DC 03/22/17 21:11 75 ML Ondansetron HCl (Zofran) 4 mg 1X ONCE 03/22/17 22:15 03/22/17 22:16 DC 03/22/17 22:03 4 MG Prochlorperazine Edisylate (Compazine) 10 mg 1X ONCE 03/22/17 19:30 03/22/17 19:31 DC 03/22/17 19:43 10 MG Sodium Chloride 1,000 ml @ 1,000 mls/hr 1X ONCE 03/22/17 19:30 03/22/17 20:29 DC 03/22/17 19:43 1,000 MLS/HR Allergies Allergies Allergies Coded Allergies Type Severity Reaction Last Updated Verified carbidopa Allergy Intermediate 10/12/16 Yes Physical Exam Physical Exam Constitutional: Well developed, well nourished. HENT: Normocephalic, atraumatic, bilateral external ears normal, oropharynx moist, no oral exudates, nose normal. Eyes: PERRLA, EOMI, conjunctiva normal, no discharge. Neck: Normal range of motion. Cardiovascular:Heart rate regular rhythm, no murmur. Lungs & Thorax: Bilateral breath sounds clear to auscultation. Abdomen: Bowel sounds normal, soft, nonspecific upper abdominal pain, tenderness , voluntary guarding, no rebound or rigidity. Skin: Warm, dry, no erythema. Back: No tenderness, no CVA tenderness. Extremities: No tenderness. Neurologic: Alert and oriented X 3, normal motor function, normal sensory function. Psychologic: Affect normal, judgement normal, mood normal. Current Patient Data Vital Signs Vital Signs Date Time Temp Pulse Resp B/P (MAP) Pulse Ox O2 Delivery O2 Flow Rate FiO2 03/22/17 23:00 170/84 (112) 03/22/17 22:00 103 98 03/22/17 19:44 Room Air 03/22/17 19:05 98.0 18 98.0 Lab Values Laboratory Tests Test 03/22/17 19:24 03/22/17 20:15 White Blood Count 14.7 x10^3/uL (4.0-11.0) H Red Blood Count 4.88 x10^6/uL (3.50-5.40) Hemoglobin 14.3 g/dL (12.0-15.5) Hematocrit 42.1 % (36.0-47.0) Mean Corpuscular Volume 86 fL (79-100) Mean Corpuscular Hemoglobin 29 pg (25-35) Mean Corpuscular Hemoglobin Concent 34 g/dL (31-37) Red Cell Distribution Width 14.0 % (11.5-14.5) Platelet Count 309 x10^3/uL (140-400) Neutrophils (%) (Auto) 81 % (31-73) H Lymphocytes (%) (Auto) 15 % (24-48) L Monocytes (%) (Auto) 3 % (0-9) Eosinophils (%) (Auto) 0 % (0-3) Basophils (%) (Auto) 1 % (0-3) Neutrophils # (Auto) 11.9 x10^3uL (1.8-7.7) H Lymphocytes # (Auto) 2.2 x10^3/uL (1.0-4.8) Monocytes # (Auto) 0.4 x10^3/uL (0.0-1.1) Eosinophils # (Auto) 0.1 x10^3/uL (0.0-0.7) Basophils # (Auto) 0.1 x10^3/uL (0.0-0.2) Sodium Level 143 mmol/L (136-145) Potassium Level 3.4 mmol/L (3.5-5.1) L Chloride Level 101 mmol/L (98-107) Carbon Dioxide Level 31 mmol/L (21-32) Anion Gap 11 (6-14) Blood Urea Nitrogen 10 mg/dL (7-20) Creatinine 0.7 mg/dL (0.6-1.0) Estimated GFR (Cockcroft-Gault) 91.3 BUN/Creatinine Ratio 14 (6-20) Glucose Level 177 mg/dL (70-99) H Calcium Level 9.8 mg/dL (8.5-10.1) Total Bilirubin 0.3 mg/dL (0.2-1.0) Aspartate Amino Transferase (AST) 17 U/L (15-37) Alanine Aminotransferase (ALT) 23 U/L (14-59) Alkaline Phosphatase 130 U/L (46-116) H Total Protein 7.9 g/dL (6.4-8.2) Albumin 3.7 g/dL (3.4-5.0) Albumin/Globulin Ratio 0.9 (1.0-1.7) L Lipase 85 U/L (73-393) Urine Color Yellow Urine Clarity Clear Urine pH 7.0 Urine Specific Ferguson 1.020 Urine Protein Negative mg/dL (NEG-TRACE) Urine Glucose (UA) Negative mg/dL (NEG) Urine Ketones (Stick) Trace mg/dL (NEG) Urine Blood Negative (NEG) Urine Nitrite Negative (NEG) Urine Bilirubin Negative (NEG) Urine Urobilinogen Dipstick 0.2 mg/dL (0.2 mg/dL) Urine Leukocyte Esterase Trace (NEG) Urine RBC 0 /HPF (0-2) Urine WBC Occ /HPF (0-4) Urine Squamous Epithelial Cells Occ /LPF Urine Bacteria 0 /HPF (0-FEW) Urine Mucus Mod /LPF Laboratory Tests 03/22/17 19:24 Laboratory Tests 03/22/17 19:24 Radiology/Procedures Radiology/Procedures [CT abdomen and pelvis: No acute abnormality per radiology report.] Course & Med Decision Making Course & Med Decision Making Pertinent Labs and Imaging studies reviewed. (See chart for details) [Abdominal pain, nausea vomiting improved with treatment. Lab work to reviewed. No acute findings on imaging studies. Will treat supportively with watchful waiting and close PCP follow-up. Return precautions reviewed. Patient verbalizes understanding agreement discharge instructions prior to departure.] Dragon Disclaimer Dragon Disclaimer This electronic medical record was generated, in whole or in part, using a voice recognition dictation system. BEKAH LANGLEY DO Mar 22, 2017 21:32
[2017-03-22] MEDS ORDERED: HALOPERIDOL LACTATE 5 MG/ML VIAL. IVP ONE (22:00)
[2017-03-22] MEDS ORDERED: ONDANSETRON PF 4 MG/2 ML VIAL. IV ONE (22:15)
[2017-03-22 23:00] VITALS: BP 170/84
== END 2017-03-23 00:02 | disposition home or self-care (01) ==
LOC: ER 18:40
DX: R10.13 Epigastric pain (principal); R11.2 Nausea with vomiting, unspecified; R19.7 Diarrhea, unspecified; R42 Dizziness and giddiness; R51 Headache; I48.91 Unspecified atrial fibrillation; J45.909 Unspecified asthma, uncomplicated; F32.9 Major depressive disorder, single episode, unspecified; E11.40 Type 2 diabetes mellitus with diabetic neuropathy, unspecified; E78.00 Pure hypercholesterolemia, unspecified; I10 Essential (primary) hypertension; Z90.710 Acquired absence of both cervix and uterus; Z88.8 Allergy status to other drugs, medicaments and biological substances
CPT/HCPCS: 36415; 74177; 80053; 81001; 83690; 85027; 87086; 96361; 96374; 96375; 99285; J0780; J1630; J2405; J3010; J7030; Q9967

== ENCOUNTER 2017-05-07 11:56 | Inpatient (IN) | payer OTHER ==
[~2017-05-07] VITALS: Ht 160 cm; Wt 81.8 kg
[2017-05-07] MEDS ORDERED: IV NORMAL SALINE 1000ML BAG 1,000 ML IV ONE (12:15)
--- NOTE | 2017-05-07 12:23 | PHYS DOC ---
Past Medical History Past Medical History: A-Fib, Asthma, Depression, Diabetes-Type II, High Cholesterol, Hypertension Additional Past Medical Histor: NEUROPATHY Past Surgical History: Hysterectomy Additional Past Surgical Histo: unknown Alcohol Use: None Drug Use: None Adult General Chief Complaint Chief Complaint: DIZZY/LIGHT HEADED HPI HPI Patient is a 42 year old female who presents with so. She states she was in her apartment was when he knocked the door she stood up to go answer the door and then she turned around and had a syncopal episode. EMS was called they got her up on her feet and she also felt lightheaded and dizzy again. Currently she denies any nausea vomiting chest pain shortness of breath or other concerns. She does have a history of hypertension and diabetes. She states she had a stress test approximately 2 years ago. Review of Systems Review of Systems Constitutional: Denies fever or chills [] Eyes: Denies change in visual acuity, redness, or eye pain [] HENT: Denies nasal congestion or sore throat [] Respiratory: Denies cough or shortness of breath [] Cardiovascular: No additional information not addressed in HPI [] GI: Denies abdominal pain, nausea, vomiting, bloody stools or diarrhea [] : Denies dysuria or hematuria [] Musculoskeletal: Denies back pain or joint pain [] Integument: Denies rash or skin lesions [] Neurologic: Denies headache, focal weakness or sensory changes [] Endocrine: Denies polyuria or polydipsia [] Current Medications Current Medications Current Medications Medications (Trade) Dose Ordered Sig/Mo Start Time Stop Time Status Last Admin Dose Admin Aspirin (Nona Aspirin) 325 mg 1X ONCE 05/07/17 14:00 05/07/17 14:01 DC 05/07/17 14:20 325 MG Ondansetron HCl (Zofran) 4 mg PRN Q8HRS PRN 05/07/17 14:15 05/08/17 14:14 Sodium Chloride 1,000 ml @ 1,000 mls/hr 1X ONCE 05/07/17 12:15 05/07/17 13:14 DC 05/07/17 13:51 1,000 MLS/HR Allergies Allergies Allergies Coded Allergies Type Severity Reaction Last Updated Verified carbidopa Allergy Intermediate 10/12/16 Yes Physical Exam Physical Exam Constitutional: Well developed, well nourished, no acute distress, non-toxic appearance. [] HENT: Normocephalic, atraumatic, bilateral external ears normal, oropharynx moist, no oral exudates, nose normal. [] Eyes: PERRLA, EOMI, conjunctiva normal, no discharge. [] Neck: Normal range of motion, no tenderness, supple, no stridor. [] Cardiovascular:Heart rate regular rhythm, no murmur [] Lungs & Thorax: Bilateral breath sounds clear to auscultation [] Abdomen: Bowel sounds normal, soft, no tenderness, no masses, no pulsatile masses. [] Skin: Warm, dry, no erythema, no rash. [] Back: No tenderness, no CVA tenderness. [] Extremities: No tenderness, no cyanosis, no clubbing, ROM intact, no edema. [] Neurologic: Alert and oriented X 3, normal motor function, normal sensory function, no focal deficits noted. [] Psychologic: Affect normal, judgement normal, mood normal. [] Current Patient Data Vital Signs Vital Signs Date Time Temp Pulse Resp B/P (MAP) Pulse Ox O2 Delivery O2 Flow Rate FiO2 05/07/17 12:10 98.7 93 16 109/68 (82) 96 Room Air 98.7 Lab Values Laboratory Tests Test 05/07/17 12:45 White Blood Count 11.5 x10^3/uL (4.0-11.0) H Red Blood Count 4.53 x10^6/uL (3.50-5.40) Hemoglobin 13.3 g/dL (12.0-15.5) Hematocrit 39.7 % (36.0-47.0) Mean Corpuscular Volume 88 fL (79-100) Mean Corpuscular Hemoglobin 29 pg (25-35) Mean Corpuscular Hemoglobin Concent 33 g/dL (31-37) Red Cell Distribution Width 14.3 % (11.5-14.5) Platelet Count 252 x10^3/uL (140-400) Neutrophils (%) (Auto) 66 % (31-73) Lymphocytes (%) (Auto) 26 % (24-48) Monocytes (%) (Auto) 6 % (0-9) Eosinophils (%) (Auto) 1 % (0-3) Basophils (%) (Auto) 1 % (0-3) Neutrophils # (Auto) 7.6 x10^3uL (1.8-7.7) Lymphocytes # (Auto) 3.0 x10^3/uL (1.0-4.8) Monocytes # (Auto) 0.7 x10^3/uL (0.0-1.1) Eosinophils # (Auto) 0.2 x10^3/uL (0.0-0.7) Basophils # (Auto) 0.1 x10^3/uL (0.0-0.2) Prothrombin Time 12.5 SEC (11.7-14.0) Prothrombin Time INR 1.0 (0.8-1.1) Sodium Level 142 mmol/L (136-145) Potassium Level 3.5 mmol/L (3.5-5.1) Chloride Level 101 mmol/L (98-107) Carbon Dioxide Level 35 mmol/L (21-32) H Anion Gap 6 (6-14) Blood Urea Nitrogen 14 mg/dL (7-20) Creatinine 0.8 mg/dL (0.6-1.0) Estimated GFR (Cockcroft-Gault) 77.9 Glucose Level 62 mg/dL (70-99) L Calcium Level 9.1 mg/dL (8.5-10.1) Magnesium Level 2.0 mg/dL (1.8-2.4) Total Bilirubin 0.3 mg/dL (0.2-1.0) Direct Bilirubin 0.1 mg/dL (0.0-0.2) Aspartate Amino Transferase (AST) 21 U/L (15-37) Alanine Aminotransferase (ALT) 29 U/L (14-59) Alkaline Phosphatase 121 U/L (46-116) H Creatine Kinase 41 U/L (26-192) Creatine Kinase MB (Mass) 0.5 ng/mL (0.0-3.6) Creatine Kinase MB Relative Index % (0-4) Troponin I Quantitative < 0.017 ng/mL (0.000-0.055) BJ-Vdv-F-Type Natriuretic Peptide 33 pg/mL (0-124) Total Protein 7.8 g/dL (6.4-8.2) Albumin 3.7 g/dL (3.4-5.0) Lipase 73 U/L (73-393) Thyroid Stimulating Hormone (TSH) 1.046 uIU/mL (0.358-3.74) Laboratory Tests 05/07/17 12:45 Laboratory Tests 05/07/17 12:45 EKG EKG EKG shows sinus rhythm rate [address] elevations appreciated, T- wave inversion noted in 1 and aVL, left axis deviation noted, QTC 466 mode seconds, as interpreted by me. Radiology/Procedures Radiology/Procedures [facility] [address] [place] [address] IMAGING REPORT Signed PATIENT: ARLEN CHÁVEZ ACCOUNT: [id number] : 1975 LOCATION: ER AGE: 42 SEX: F EXAM STATUS: PRE ER ORD. PHYSICIAN: DELFINO ZAVALA MD REASON: syncope PROCEDURE: PORTABLE CHEST 1V Portable chest, 05/07/2017: History: Syncope Comparison is made to a study from 02/07/2017. The heart is mildly enlarged. The pulmonary vascularity is normal. No pulmonary infiltrates are seen. There is no evidence of pleural fluid. IMPRESSION: 1. Mild cardiomegaly. 2. No acute abnormality is detected. DICTATED and SIGNED BY: FABRICIO DEL CASTILLO MD DATE: 05/07/17 1225 CC: DELFINO ZAVALA MD; YASMIN LEIGH MD ~ Impressions: Syncope Type 2 diabetes Course & Med Decision Making Course & Med Decision Making Pertinent Labs and Imaging studies reviewed. (See chart for details) On orthostatic blood pressures, she is not orthostatic. EKG does show T-wave inversions however is not concerning for acute ischemia. She received aspirin and being admitted for rule out. I've also placed cardiology consultation. Interim orders have been written. Dragon Disclaimer Dragon Disclaimer This electronic medical record was generated, in whole or in part, using a voice recognition dictation system. Departure Departure Impression: Primary Impression: Syncope Disposition: 09 ADMITTED INPATIENT Admitting Physician: Tyshawn Man Condition: STABLE Referrals: YASMIN LEGIH MD (PCP) DELFINO ZAVALA MD May 07, 2017 12:23
--- NOTE | 2017-05-07 12:28 | RAD ---
Portable chest, 05/07/2017: History: Syncope Comparison is made to a study from 02/07/2017. The heart is mildly enlarged. The pulmonary vascularity is normal. No pulmonary infiltrates are seen. There is no evidence of pleural fluid. IMPRESSION: 1. Mild cardiomegaly. 2. No acute abnormality is detected.
[2017-05-07 12:59] LABS: BASO # 0.1 x10^3/uL (0.0-0.2); BASO % 1 % (0-3); EOS % 1 % (0-3); HEMATOCRIT 39.7 % (36.0-47.0); HEMOGLOBIN 13.3 g/dL (12.0-15.5); LYMPH % 26 % (24-48); MEAN CORPUSCULAR HEMOGLOBIN 29 pg (25-35); MEAN CORPUSCULAR HGB CONC 33 g/dL (31-37); MEAN CORPUSCULAR VOLUME 88 fL (79-100); MONO % 6 % (0-9); NEUT % 66 % (31-73); PLATELET COUNT 252 x10^3/uL (140-400); RED BLOOD COUNT 4.53 x10^6/uL (3.50-5.40); RED CELL DISTRIBUTION WIDTH 14.3 % (11.5-14.5); WHITE BLOOD COUNT 11.5 x10^3/uL (4.0-11.0)
[2017-05-07 13:09] LABS: PROTHROMBIN TIME PATIENT 12.5 SEC (11.7-14.0)
[2017-05-07 13:20] LABS: CALCIUM 9.1 mg/dL (8.5-10.1); CREATININE 0.8 mg/dL (0.6-1.0); GFR 77.9; POTASSIUM 3.5 mmol/L (3.5-5.1)
--- NOTE | 2017-05-07 13:20 | EKG ---
[facility] [address] [place] [address] Test Date: 2017-05-07 Test Time: 11:56:46 Pat Name: ARLEN CHÁVEZ Department: Room: Gender: F Manager Stars: : 1975 Requested By: DELFINO ZAVALA Order Number: [id number] Reading MD: Measurements Intervals [place] Rate: 94 P: 72 [place]: 156 QRS: -24 QRSD: 84 T: 34 QT: 368 QTc: 466 Interpretive Statements SINUS RHYTHM LEFTWARD AXIS RI6.01 Unconfirmed report No previous ECG available for comparison
[2017-05-07 13:26] LABS: ALBUMIN 3.7 g/dL (3.4-5.0); DIRECT BILIRUBIN 0.1 mg/dL (0.0-0.2); TOTAL BILIRUBIN 0.3 mg/dL (0.2-1.0); TOTAL PROTEIN 7.8 g/dL (6.4-8.2)
[2017-05-07 13:33] LABS: CKMB MASS 0.5 ng/mL (0.0-3.6); CREATINE KINASE 41 U/L (26-192)
[2017-05-07] MEDS ORDERED: ASPIRIN 325 MG TABLET PO ONE (14:00)
[2017-05-07] MEDS ORDERED: ONDANSETRON PF 4 MG/2 ML VIAL. IV PRN (14:15)
--- NOTE | 2017-05-07 14:21 | PDOC2 ---
DALTON GUDINO [employer]RO[employer] MASTER 05/07/17 1421: CARDIAC CONSULT DATE OF CONSULT Date of Consult DATE: 05/07/17 TIME: 14:07 REFERRING PHYSICIAN Referring Physician: Rosette SOURCE Source: Chart review, Patient HISTORY OF PRESENT ILLNESS HISTORY OF PRESENT ILLNESS This is a pleasant 42 yo female admitted for complains of passing out. Reports that she is DM and took her long acting insulin last night. She did not wake up till about 1030, so has not had any breakfast. She has been having watery diarrhea with 2x the day before and 1 x yesterday. This morning after waking up someone was at the door and let this person in. She was walking back when she started feeling dizzy and light headed, blurred vision and fell to the ground. Denies any vertigo, nausea, tingling, auditory disturbances or migraine symptoms prior to her passing out. Prior to that she also felt palpitations but no CP or SOA. It was unclear how long she was unresponsive but she was on the floor and she could not fully wake up but she was hearing people taking around her. Denies any bowel or bladder incontinence. To add she was feeling shaky and weak prior to her passing out. Whe she finally woke up her BG was checked and it was in the 140s. Denies any recent long distance travel, prior falls or injury. No recent dizzy spells. she did verbalized having chills recently with her diarrhea but no recorded fever. Verbalized compliance with her medications including atenolol and cardizem. She also was taking acyclovir with her recent shingles which is drying up. PAST MEDICAL HISTORY Past Medical History Cardiovascular: CAD, HTN, Hyperlipidemia, SVT (recent event monitor 01/2017 mainly sinus tachycardia 103-127) Pulmonary: Asthma, Pneumonia CENTRAL NERVOUS SYSTEM: Migraine, Peripheral neuropathy, Other (RLS) GI: GERD Heme/Onc: Anemia NOS Psych: Anxiety, Depression Musculoskeletal: Osteoarthritis Rheumatologic: No pertinent hx Infectious disease: shingles ENT: No pertinent hx Endocrine: Diabetes (2), dysmenorrhea Dermatology: No pertinent hx Grav: 6 Para: 4 PAST SURGICAL HISTORY Past Surgical History (D & C), YESY-BSO, LHC no intervention 07/2016 FAMILY HISTORY Family History: Hypertension (mother), Other (Father with ALS) SOCIAL HISTORY Smoke: No ALCOHOL: none Drugs: None Lives: with Family CURRENT MEDICATIONS CURRENT MEDICATIONS Current Medications Medications (Trade) Dose Ordered Sig/Mo Route PRN Reason Start Time Stop Time Status Last Admin Dose Admin Sodium Chloride 1,000 ml @ 1,000 mls/hr 1X ONCE IV 05/07/17 12:15 05/07/17 13:14 DC 05/07/17 13:51 ALLERGIES ALLERGIES: Coded Allergies: carbidopa (Verified Allergy, Intermediate, 10/12/16) ROS Review of System 14 point ROS evaluated with pertinent positives noted per HPI PHYSICAL EXAM General: Alert, Oriented X3, Cooperative, No acute distress HEENT: Atraumatic, Mucous membr. moist/pink Lungs: Clear to auscultation, Normal air movement Heart: Regular rate, Normal S1, Normal S2, Other (2/6 systolic murmur to LLS border) Abdomen: Soft, No tenderness Extremities: No edema Skin: No breakdown, No significant lesion, Other (dried right tricep and right mid back clustered macular lesions from recent shingles. ) Neuro: Normal speech, Sensation intact Psych/Mental Status: Mental status NL, Mood NL MUSCULOSKELETAL: Osteoarthritic changes both hands VITALS VITALS Vital Signs Date Time Temp Pulse Resp B/P (MAP) Pulse Ox O2 Delivery O2 Flow Rate FiO2 05/07/17 12:10 98.7 93 16 109/68 (82) 96 Room Air 98.7 LABS Lab: Laboratory Tests Test 05/07/17 12:45 White Blood Count 11.5 x10^3/uL (4.0-11.0) Red Blood Count 4.53 x10^6/uL (3.50-5.40) Hemoglobin 13.3 g/dL (12.0-15.5) Hematocrit 39.7 % (36.0-47.0) Mean Corpuscular Volume 88 fL (79-100) Mean Corpuscular Hemoglobin 29 pg (25-35) Mean Corpuscular Hemoglobin Concent 33 g/dL (31-37) Red Cell Distribution Width 14.3 % (11.5-14.5) Platelet Count 252 x10^3/uL (140-400) Neutrophils (%) (Auto) 66 % (31-73) Lymphocytes (%) (Auto) 26 % (24-48) Monocytes (%) (Auto) 6 % (0-9) Eosinophils (%) (Auto) 1 % (0-3) Basophils (%) (Auto) 1 % (0-3) Neutrophils # (Auto) 7.6 x10^3uL (1.8-7.7) Lymphocytes # (Auto) 3.0 x10^3/uL (1.0-4.8) Monocytes # (Auto) 0.7 x10^3/uL (0.0-1.1) Eosinophils # (Auto) 0.2 x10^3/uL (0.0-0.7) Basophils # (Auto) 0.1 x10^3/uL (0.0-0.2) Prothrombin Time 12.5 SEC (11.7-14.0) Prothromb Time International Ratio 1.0 (0.8-1.1) Sodium Level 142 mmol/L (136-145) Potassium Level 3.5 mmol/L (3.5-5.1) Chloride Level 101 mmol/L (98-107) Carbon Dioxide Level 35 mmol/L (21-32) Anion Gap 6 (6-14) Blood Urea Nitrogen 14 mg/dL (7-20) Creatinine 0.8 mg/dL (0.6-1.0) Estimated GFR (Cockcroft-Gault) 77.9 Glucose Level 62 mg/dL (70-99) Calcium Level 9.1 mg/dL (8.5-10.1) Magnesium Level 2.0 mg/dL (1.8-2.4) Total Bilirubin 0.3 mg/dL (0.2-1.0) Direct Bilirubin 0.1 mg/dL (0.0-0.2) Aspartate Amino Transf (AST/SGOT) 21 U/L (15-37) Alanine Aminotransferase (ALT/SGPT) 29 U/L (14-59) Alkaline Phosphatase 121 U/L (46-116) Creatine Kinase 41 U/L (26-192) Creatine Kinase MB (Mass) 0.5 ng/mL (0.0-3.6) Creatine Kinase MB Relative Index % (0-4) Troponin I Quantitative < 0.017 ng/mL (0.000-0.055) VB-Hhg-N-Type Natriuretic Peptide 33 pg/mL (0-124) Total Protein 7.8 g/dL (6.4-8.2) Albumin 3.7 g/dL (3.4-5.0) Lipase 73 U/L (73-393) Thyroid Stimulating Hormone (TSH) 1.046 uIU/mL (0.358-3.74) ECHOCARDIOGRAM ECHOCARDIOGRAM <Conclusion> The left ventricular systolic function is normal and the ejection fraction is within normal range. The Ejection Fraction is 55-60%. There is normal LV segmental wall motion. DATE: 10/30/16 1522 STRESS TEST STRESS TEST Conclusion 1. No evidence of significant ischemia or previous myocardial infarction appreciated. 2. Ejection fraction calculated to be 57% with normal wall motion on gated SPECT images. 3. Normal nuclear imaging scan. DATE: 10/02/14 1618 HEART CATH HEART CATH Conclusion 1. 80% stenosis involving a small caliber obtuse marginal branch of left circumflex artery. No other significant stenoses were noted. 2. Normal left ventricular systolic function with ejection fraction estimated at 60%. Recommendations Medical Therapy DATE: 07/28/16 1125 ASSESSMENT/PLAN ASSESSMENT/PLAN 1. Syncope with nontraumatic fall: High suspicious of hypoglycemic reaction with likely associated low intravascular volume. 2. Known hx of Sinus tachycardia: appears to be inappropriate sinus tach. Affirmed by recent event monitor 3. Recent diarrhea: 3 days span. last episode yesterday with chills. 4. Recent shingles: treated with acyclovir. drying right unilateral arm/back lesions 5. HTN: controlled with home cardizem and atenolol. 6. DM2/HLP 7. CAD: Known 80% stenosis involving a small caliber obtuse marginal branch of left circumflex artery 07/2016, no intervention. CP free and no SOA. 8. Hx of Migraine: last use of relpax was over a week ago. Recommendations 1. Monitor rhythm overnight. 2. IV hydration. UA. 3. Orthostatic readings 4. Continue wth secondary prevention 5. Failed to follow up in office. Discussed adherence. 6. BMP/Mg in AM. Problems: LUCIA LÓPEZ MD 05/07/17 1554: CARDIAC CONSULT ALLERGIES ALLERGIES: Coded Allergies: carbidopa (Verified Allergy, Intermediate, 10/12/16) ASSESSMENT/PLAN ASSESSMENT/PLAN Patient seen and examined. Agree with PATHOLOGY SECRETARY's assessment and plan. Syncope most probably secondary to hypovolemia. Check orthostatics and continue intravenous fluids. Monitor with telemetry to rule out any significant arrhythmias. Recent 2-D echo showed normal LV systolic function. CAD status stable Thank you for your consultation.. Problems: DALTON GUDINO APRN May 07, 2017 14:21 LUCIA LÓPEZ MD May 07, 2017 15:54
--- NOTE | 2017-05-07 14:49 | ACF ---
Admit Criteria Forms Admit Criteria Forms Admit Criteria Forms CARDIOLOGY GRG Clinical Indications for Admission to Inpatient Care ( Harper/check or initial the applicable condition/criteria) Hospital admission is needed for appropriate care of the patient because of ANY ONE of the following: [ ] I. Hemodynamic instability as indicated by ALL of the following (1)(2)(3) (4)(5)(6)(7)(8)(9)(10) [ ]a) Vital sign abnormality not readily corrected by appropriate treatment with 12-24 hours for ANY ONE: [ ]i) Hypotension that persists despite appropriate treatment (eg, volume repletion) [ ]ii) Tachycardiathat persists despite appropriate tx ( e.g., analgesia, fluids, sedation as indicated [ ]iii) Orthostatic vital sign changes that persists despite appropriate treatment (eg, volume repletion) [ ]b) Vital sign abnormailty that is severe indicated by ANY ONE of the following: [ ]i) Inadequate perfusion indicated by ANY ONE of the following: [ ] 1) Lactic acidosis (> 2 mmol/L) [ ] 2) New abnormal capillary refill (> 3 seconds) [ ] 3) Reduced urine output [ ] 4) New altered mental status [ ] 5) Myocardial Ischemia [ ] 6) Other metabolic acidosis (arterial pH <7.35 ) not otherwise explained. [ ]ii) Mean arterial pressure[A] less than 60 mm Hg [ ]iii) Mean arterial pressure[A] less than 70 mm Hg after 30 minutes of appropriate treatment (eg, fluid resuscitation) [ ]iv) Sustained heart rate greater than 120 beats per minute in adult or child 6 years or older[B] [ ]v) IV inotropic or vasopressor medication required to maintain adequate blood pressure or perfusion [ ] II. Severe heart failure as indicated by ANY ONE of the following(17)(18) [ ]a) Respiratory distress [ ]b) Hypotension [ ]c) Debilitating anasarca refractory to therapy (eg, tissue breakdown with infection)[C](19) [ ]d) Cardiac arrhythmias of immediate concern [ ]e) Myocardial ischemia [ ] III. Cardiac arrhythmias or findings of immediate concern indicated by ANY ONE of the following (21)(22): [ ] a) Heart rhythms that are inherently dangerous or unstable indicated by ANY ONE of the following (23)(24)(25): [ ] i) Resuscitated ventricular fibrillation or cardiac arrest [ ] ii) Ventricular escape rhythm [ ] iii) Sustained ventricular tachycardia (30 seconds or more of ventricular rhythm at greater than 100 beats per minute) [ ] iv) Nonsustained ventricular tachycardia and ANY ONE of the following: [ ] 1) Suspected cardiac ischemia as cause or consequence of ventricular tachycardia [ ] 2) Acute myocarditis [ ] b) Unstable cardiac conduction defects indicated by ANY ONE of the following(25)(26)(27) [ ] i) Type II second-degree atrioventricular block [ ]ii) Third-degree atrioventricular block [ ]iii) New-onset left bundle branch block with suspected myocardial ischemia [ ]c) Any heart rhythm and ANY ONE of the following (23)(24)(28)(29) (30) [ ] i) Continuous long-term ECG monitoring needed (e.g., initiation of drug requiring monitoring for more than 24 hours) [ ] ii) Patient has automatic implanted cardioverter defibrillator that is repeatedly firing, malfunctioning, or in need of immediate adjustment of settings beyond the scope of ambulatory or observation care [ ]d) Heart rhythms of concern due to ANY ONE of the following: [ ] i) Hypotension [ ] ii) Respiratory distress [ ] iii) Association with other significant symptoms (e.g., bradycardia with syncope or ongoing dizziness, supraventricular tachycardia with chest pain (28)(29)(31) [ ] IV. Monitoring for cardiac contusion beyond the scope of observation care needed [A](32)(33)(34) [ ] V. Surgical or device complication (e.g., valve replacement complication , ICD disfunction or pacemaker dysfunction) (49)(50)(51)(52)(53)(54) [ ] . Inpatient palliative care needed. [F](51)(52) Also use Inpatient Palliative Care Criteria [ ] VII. Nonbacterial thrombotic (marantic) endocarditis(43)(44)(55)(56)(57) [X] VIII. Cardiology condition, symptom, or finding for which emergency and observation care has failed or are not considered appropriate. [ ] IX. Acute valvular disease requiring inpatient as indicated by ANY ONE of the following (40)(41) [ ]a) Acute valvular regurgitation (42) [ ]b) Noninfectious valvulitis (43)(44) [ ]c) Obstructive valve thrombosis (45)(46) [ ]d) Paravalvular leak(47)(48) [ ]e) Other significant valvular disorder remaining after emergency or observation level of care (as appropriate) [ ]X. Pericardial disease requiring inpatient treatment as indicated by ANY ONE of the following (35)(36)(37)(38) [ ]a) Suspected tamponade [ ]b) Hemopericardium [ ]c) Other significant pericardial disorder remaining after emergency or observation level of care (as appropriate)(39) [ ] XI. Cardiac ischemia beyond scope of emergency and observation care. [ ] XII. Cyanotic heart disease requiring inpatient care as indicated by 1 or more of the following(58)(59)(60): [ ]a) Acute onset of hypoxemia [ ]b) Exacerbation [ ] XIII. Hypertension requiring inpatient treatment as indicated by ANYONE of the following(11)(12)(13)(14): [ ]a) Severe hypertension (SBP greater than 180 mm Hg or DBP greater than 110 mm Hg, or greater than the 95th percentile for age, gender, and height in pediatric patients) that cannot be controlled (eg, to SBP less than 160 mm Hg and DBP less than 100 mm Hg) by emergency department or observation care treatment(15) [ ]b) Acute end organ damage secondary to hypertension (SBP greater than 140 mm Hg or DBP greater than 90 mm Hg) as indicated by ANYONE of the following: [ ] i) Hypertensive encephalopathy (eg, Altered mental status)(16) [ ] ii) Cerebral infarction [ ] iii) Intracranial hemorrhage [ ] iv) Myocardial ischemia or infarction [ ] v) Heart failure (eg, pulmonary edema) [ ] vi) Aortic dissection [ ] vii) Increased creatinine (new) with reduction of more than 50% in estimated glomerular filtration rate from baseline [ ] viii) Papilledema [ ] ix) Retinal hemorrhage [ ] x) Microangiopathic hemolytic anemia [ ] xi) Seizure [ ] xii) Other significant finding secondary to hypertension [ ] XIV. Complications of transplanted heart indicated by ANY ONE of the following(61): [ ]a) Acute graft rejection requiring inpatient management (eg, intravenous imunosuppression)(62)(63) [ ]b) Acute graft heart failure indicated by ANY ONE of the following(64): [ ] i) Hemodynamic instability [ ] ii) Cardiac arrhythmias of immediate concern [ ] iii) Pulmonary edema that is very severe (eg, mechanical ventilation needed, imminent or likely, need for 100% oxygen to keep oxygen saturation above 90%) [ ] iv) Pulmonary edema that is persistent as indicated by ALL of the following: [ ] 1) New need for oxygen therapy to keep oxygen saturation above 90 % (or increased FiO2 need from baseline) [ ] 2) Has not improved sufficiently with emergency department or observation care IV diuretics or other heart failure treatments[E]. [ ] iv) Altered mental status that is severe or persistent [ ] iv) Increased creatinine (new on laboratory test) with reduction of more than 50% in estimated glomerular filtration rate from baseline [ ] iv) Progressively (ongoing) rising creatinine (known from past laboratory test) with reduction of more than 25% in estimated glomerular filtration rate from baseline [ ] iv) Acute renal failure [ ] iv) Acute peripheral ischemia (eg, examination shows pulseless, cool, mottled, or cyanotic extremity) [ ] iv) Pulmonary artery catheter monitoring needed [ ] iv) Other sign or symptom of heart failure requiring inpatient treatment (ie, too severe or not responsive to outpatient and observation care treatment) [ ]c) Infection requiring inpatient management (eg, Hemodynamic instability, need for intravenous antimicrobial treatment)(66)(67)(68)(69)(70) [ ]d) Cardiac allograft vasculopathy requiring inpatient management (eg evidence of cardiacischemia)(71) [ ]e) Other complication of transplanted heart (eg, stroke, severe pulmonary hypertension, severe valvular dysfunction) requiring inpatient management(72) The original [employer] content created by [employer] has been revised. The portions of the content which have been revised are identified through the use of italic text, and [facility] has neither reviewed nor approved the modified material. All other unmodified content is copyright [employer]. Please see references footnoted in the original [employer] edition 2014 ZENY ALVA May 07, 2017 14:49
[2017-05-07] MEDS ORDERED: IV 1/2 NORMAL SALINE 1,000 ML IV ONE (15:00)
[2017-05-07 16:07] LABS: NEG OBC UR NEG; POS OBC UR POS
[2017-05-07 16:11] LABS: BARBITURATES NEG (NEG); BENZODIAZEPINES NEG (NEG); CANNABINOIDS NEG (NEG); COCAINE NEG (NEG); METHADONE NEG (NEG); OPIATES NEG (NEG); PHENCYCLIDINE NEG (NEG)
[2017-05-07 16:13] LABS: BILIRUBIN,URINE NEGATIVE (NEG); GLUCOSE,URINE NEGATIVE (NEG); NITRITE,URINE NEGATIVE (NEG); PH,URINE 5.5; PROTEIN,URINE NEGATIVE (NEG-TRACE); UROBILINOGEN,URINE 0.2 mg/dL (0.2 mg/dL)
[2017-05-07 16:29] LABS: BACTERIA,URINE 0 /HPF (0-FEW); RBC,URINE 0 /HPF (0-2); SQUAMOUS EPITHELIAL CELL,UR OCC /LPF
[2017-05-07 18:15] VITALS: BP 163/78
[2017-05-07 18:16] VITALS: BP 163/78
[2017-05-07] MEDS ORDERED: TRAM50TA PO (19:33)
[2017-05-07] MEDS ORDERED: TRAZ50TA15 PO (19:33)
[2017-05-07] MEDS ORDERED: ACYC800T PO (19:33)
[2017-05-07] MEDS ORDERED: ZOLP5TAB PO (19:49)
[2017-05-07] MEDS ORDERED: HYDR-971 PO (19:49)
[2017-05-07] MEDS ORDERED: ZOLPIDEM 5 MG TABLET. PO PRN (20:00)
[2017-05-07] MEDS: HYDROcodone/APAP 5/325MG 1 TAB TABLET PO PRN (20:26)
[2017-05-07] MEDS: traZODone 50 MG TABLET. PO SCH (20:26)
[2017-05-07] MEDS: GABAPENTIN 400 MG CAPSULE. PO SCH (20:26)
[2017-05-07] MEDS: ZOLPIDEM 5 MG TABLET. PO PRN (22:23)
[2017-05-07] MEDS: traMADol 50 MG TABLET PO PRN (22:23)
[2017-05-07 23:35] LABS: BILIRUBIN,URINE NEGATIVE (NEG); GLUCOSE,URINE NEGATIVE (NEG); NITRITE,URINE NEGATIVE (NEG); PROTEIN,URINE NEGATIVE (NEG-TRACE); UROBILINOGEN,URINE 0.2 mg/dL (0.2 mg/dL)
[2017-05-07 23:42] LABS: BACTERIA,URINE 0 /HPF (0-FEW); RBC,URINE 0 /HPF (0-2); SQUAMOUS EPITHELIAL CELL,UR MANY /LPF
[2017-05-07 23:51] VITALS: BP 128/49
[2017-05-08] VITALS (8 sets, daily range): BP systolic 129–177; BP diastolic 79–107
--- NOTE | 2017-05-08 00:36 | HP ---
ADMIT DATE: 05/07/2017 CHIEF COMPLAINT: Lightheadedness and dizziness, syncope. HISTORY OF PRESENT ILLNESS: The patient is a pleasant 42-year-old female well known to our service. She has quite a few problems for her young age. Basically tonight she had a syncopal episode, happened after she stood up. EMS was called. She had associated nausea. I discussed the case with the ER physician. We are going to admit the patient and do some cardiac evaluation. PAST MEDICAL HISTORY: AFib, asthma, depression, diabetes, hyperlipidemia, hypertension, neuropathy, and hysterectomy. ALLERGIES: CARBIDOPA. FAMILY HISTORY: Coronary artery disease. SOCIAL HISTORY: She does not drink, smoke or take drugs, but she states she has COPD and does not known why she has it. MEDICATIONS: Reviewed. REVIEW OF SYSTEMS: GENERAL: No history of weight change, weakness or fevers. SKIN: No bruising, hair changes or rashes. EYES: No blurred, double or loss of vision. NOSE AND THROAT: No history of nosebleeds, hoarseness or sore throat. HEART: No history of palpitations, chest pain or shortness of breath on exertion. LUNGS: Denies cough, hemoptysis, wheezing or shortness of breath. GASTROINTESTINAL: Denies changes in appetite, nausea, vomiting, diarrhea or constipation. GENITOURINARY: No history of frequency, urgency, hesitancy or nocturia. NEUROLOGIC: Denies history of numbness, tingling, tremor or weakness. She complains of dizziness. PSYCHIATRIC: No history of panic, anxiety or depression. ENDOCRINE: No history of heat or cold intolerance, polyuria or polydipsia. EXTREMITIES: Denies muscle weakness, joint pain, pain on walking or stiffness. PHYSICAL EXAMINATION: VITAL SIGNS: Temperature afebrile, pulse 92, respirations 18, blood pressure 163/78. GENERAL: She is alert, cooperative. HEART: Normal S1, S2. LUNGS: Diminished, but clear. ABDOMEN: Soft, little tender. EXTREMITIES: Trace edema. SKIN: No rashes. PSYCHIATRIC: She seems anxious. VASCULAR: Good capillary refill. ENDOCRINE: No thyromegaly. LYMPHATICS: No cervical nodes. HEMATOPOIETIC: No bruising. LABORATORY DATA: White count 11, hemoglobin 13, platelets 252. Electrolytes pending. Troponin is 0. INR 1. Urinalysis, moderate leukocyte esterase. Drug screen negative. ASSESSMENT AND PLAN: Syncope with incidental finding of a urinary tract infection. The patient will be admitted. We will consult Cardiology. IV Rocephin. Continue home medicines, IV fluids, cardiac monitoring. MEDHAT LARSON DO DR: VIVI/dylan JOB#: [id number] / [id number]
[2017-05-08] MEDS: HYDROcodone/APAP 5/325MG 1 TAB TABLET PO PRN ×5 (00:37→22:00)
[2017-05-08 02:16] LABS: BASO # 0.1 x10^3/uL (0.0-0.2); BASO % 1 % (0-3); EOS % 1 % (0-3); HEMATOCRIT 38.3 % (36.0-47.0); HEMOGLOBIN 12.7 g/dL (12.0-15.5); LYMPH # 2.6 x10^3/uL (1.0-4.8); LYMPH % 27 % (24-48); MEAN CORPUSCULAR HEMOGLOBIN 29 pg (25-35); MEAN CORPUSCULAR HGB CONC 33 g/dL (31-37); MEAN CORPUSCULAR VOLUME 88 fL (79-100); MONO % 6 % (0-9); NEUT % 65 % (31-73); PLATELET COUNT 243 x10^3/uL (140-400); RED BLOOD COUNT 4.36 x10^6/uL (3.50-5.40); RED CELL DISTRIBUTION WIDTH 14.5 % (11.5-14.5); WHITE BLOOD COUNT 9.5 x10^3/uL (4.0-11.0)
[2017-05-08 02:25] LABS: CALCIUM 8.8 mg/dL (8.5-10.1); CREATININE 0.7 mg/dL (0.6-1.0); GFR 90.9; MAGNESIUM 1.9 mg/dL (1.8-2.4); POTASSIUM 3.5 mmol/L (3.5-5.1)
[2017-05-08] MEDS: traMADol 50 MG TABLET PO PRN (02:36)
[2017-05-08] MEDS: GABAPENTIN 400 MG CAPSULE. PO SCH ×3 (08:53→22:00)
--- NOTE | 2017-05-08 10:15 | PDOC ---
DALTON GUDINO LEAD INFORMATICA DEVELOPER 05/08/17 1015: CARDIO Progress Notes Date and Time Date of Service 05/08/2017 Time of Evaluation 0940 Subjective Subjective: No Chest Pain, No shortness of breath, No Palpitations, No Dizziness, Other (had insomnia last night) Vitals Vitals Vital Signs Date Time Temp Pulse Resp B/P (MAP) Pulse Ox O2 Delivery O2 Flow Rate FiO2 05/08/17 08:00 Room Air 05/08/17 07:17 98.4 107 18 177/99 (125) 94 98.4 Weight Weight [ ] Input and Output Intake and Output Intake and Output 05/08/17 07:00 Intake Total 1700 ml Output Total 700 ml Balance 1000 ml Intake Oral 200 ml IV Total 1500 ml Output Urine Total 700 ml Laboratory Labs Laboratory Tests Test 05/07/17 12:45 05/07/17 15:50 05/07/17 16:49 05/07/17 20:03 White Blood Count 11.5 x10^3/uL (4.0-11.0) Red Blood Count 4.53 x10^6/uL (3.50-5.40) Hemoglobin 13.3 g/dL (12.0-15.5) Hematocrit 39.7 % (36.0-47.0) Mean Corpuscular Volume 88 fL (79-100) Mean Corpuscular Hemoglobin 29 pg (25-35) Mean Corpuscular Hemoglobin Concent 33 g/dL (31-37) Red Cell Distribution Width 14.3 % (11.5-14.5) Platelet Count 252 x10^3/uL (140-400) Neutrophils (%) (Auto) 66 % (31-73) Lymphocytes (%) (Auto) 26 % (24-48) Monocytes (%) (Auto) 6 % (0-9) Eosinophils (%) (Auto) 1 % (0-3) Basophils (%) (Auto) 1 % (0-3) Neutrophils # (Auto) 7.6 x10^3uL (1.8-7.7) Lymphocytes # (Auto) 3.0 x10^3/uL (1.0-4.8) Monocytes # (Auto) 0.7 x10^3/uL (0.0-1.1) Eosinophils # (Auto) 0.2 x10^3/uL (0.0-0.7) Basophils # (Auto) 0.1 x10^3/uL (0.0-0.2) Prothrombin Time 12.5 SEC (11.7-14.0) Prothromb Time International Ratio 1.0 (0.8-1.1) Sodium Level 142 mmol/L (136-145) Potassium Level 3.5 mmol/L (3.5-5.1) Chloride Level 101 mmol/L (98-107) Carbon Dioxide Level 35 mmol/L (21-32) Anion Gap 6 (6-14) Blood Urea Nitrogen 14 mg/dL (7-20) Creatinine 0.8 mg/dL (0.6-1.0) Estimated GFR (Cockcroft-Gault) 77.9 Glucose Level 62 mg/dL (70-99) Calcium Level 9.1 mg/dL (8.5-10.1) Magnesium Level 2.0 mg/dL (1.8-2.4) Total Bilirubin 0.3 mg/dL (0.2-1.0) Direct Bilirubin 0.1 mg/dL (0.0-0.2) Aspartate Amino Transf (AST/SGOT) 21 U/L (15-37) Alanine Aminotransferase (ALT/SGPT) 29 U/L (14-59) Alkaline Phosphatase 121 U/L (46-116) Creatine Kinase 41 U/L (26-192) Creatine Kinase MB (Mass) 0.5 ng/mL (0.0-3.6) Creatine Kinase MB Relative Index % (0-4) Troponin I Quantitative < 0.017 ng/mL (0.000-0.055) < 0.017 ng/mL (0.000-0.055) DP-Zns-P-Type Natriuretic Peptide 33 pg/mL (0-124) Total Protein 7.8 g/dL (6.4-8.2) Albumin 3.7 g/dL (3.4-5.0) Lipase 73 U/L (73-393) Thyroid Stimulating Hormone (TSH) 1.046 uIU/mL (0.358-3.74) Urine Color Yellow Urine Clarity Clear Urine pH 5.5 Urine Specific Rufus 1.020 Urine Protein Negative mg/dL (NEG-TRACE) Urine Glucose (UA) Negative mg/dL (NEG) Urine Ketones (Stick) Negative mg/dL (NEG) Urine Blood Negative (NEG) Urine Nitrite Negative (NEG) Urine Bilirubin Negative (NEG) Urine Urobilinogen Dipstick 0.2 mg/dL (0.2 mg/dL) Urine Leukocyte Esterase Moderate (NEG) Urine RBC 0 /HPF (0-2) Urine WBC 5-10 /HPF (0-4) Urine Squamous Epithelial Cells Occ /LPF Urine Bacteria 0 /HPF (0-FEW) Urine Mucus Mod /LPF Urine Test Negative (NEG) Urine Opiates Screen Neg (NEG) Urine Methadone Screen Neg (NEG) Urine Barbiturates Neg (NEG) Urine Phencyclidine Screen Neg (NEG) Urine Amphetamine/Methamphetamine Neg (NEG) Urine Benzodiazepines Screen Neg (NEG) Urine Cocaine Screen Neg (NEG) Urine Cannabinoids Screen Neg (NEG) Urine Ethyl Alcohol Neg (NEG) Glucose (Fingerstick) 79 mg/dL (70-99) Test 05/07/17 20:33 05/07/17 23:00 05/08/17 02:05 05/08/17 07:19 Glucose (Fingerstick) 117 mg/dL (70-99) 182 mg/dL (70-99) Urine Collection Type Unknown Urine Color Yellow Urine Clarity Clear Urine pH 6.0 Urine Specific Rufus 1.010 Urine Protein Negative mg/dL (NEG-TRACE) Urine Glucose (UA) Negative mg/dL (NEG) Urine Ketones (Stick) Negative mg/dL (NEG) Urine Blood Negative (NEG) Urine Nitrite Negative (NEG) Urine Bilirubin Negative (NEG) Urine Urobilinogen Dipstick 0.2 mg/dL (0.2 mg/dL) Urine Leukocyte Esterase Trace (NEG) Urine RBC 0 /HPF (0-2) Urine WBC 1-4 /HPF (0-4) Urine Squamous Epithelial Cells Many /LPF Urine Bacteria 0 /HPF (0-FEW) Urine Mucus Slight /LPF White Blood Count 9.5 x10^3/uL (4.0-11.0) Red Blood Count 4.36 x10^6/uL (3.50-5.40) Hemoglobin 12.7 g/dL (12.0-15.5) Hematocrit 38.3 % (36.0-47.0) Mean Corpuscular Volume 88 fL (79-100) Mean Corpuscular Hemoglobin 29 pg (25-35) Mean Corpuscular Hemoglobin Concent 33 g/dL (31-37) Red Cell Distribution Width 14.5 % (11.5-14.5) Platelet Count 243 x10^3/uL (140-400) Neutrophils (%) (Auto) 65 % (31-73) Lymphocytes (%) (Auto) 27 % (24-48) Monocytes (%) (Auto) 6 % (0-9) Eosinophils (%) (Auto) 1 % (0-3) Basophils (%) (Auto) 1 % (0-3) Neutrophils # (Auto) 6.2 x10^3uL (1.8-7.7) Lymphocytes # (Auto) 2.6 x10^3/uL (1.0-4.8) Monocytes # (Auto) 0.5 x10^3/uL (0.0-1.1) Eosinophils # (Auto) 0.1 x10^3/uL (0.0-0.7) Basophils # (Auto) 0.1 x10^3/uL (0.0-0.2) Sodium Level 145 mmol/L (136-145) Potassium Level 3.5 mmol/L (3.5-5.1) Chloride Level 104 mmol/L (98-107) Carbon Dioxide Level 33 mmol/L (21-32) Anion Gap 8 (6-14) Blood Urea Nitrogen 8 mg/dL (7-20) Creatinine 0.7 mg/dL (0.6-1.0) Estimated GFR (Cockcroft-Gault) 90.9 Glucose Level 128 mg/dL (70-99) Calcium Level 8.8 mg/dL (8.5-10.1) Magnesium Level 1.9 mg/dL (1.8-2.4) Troponin I Quantitative < 0.017 ng/mL (0.000-0.055) Physical Exam HEENT: Neck Supple W Full Motion Chest: Symmetric LUNGS: Clear to Auscultation Heart: S1S2, RRR (SR/ST) Abdomen: Soft N/T Extremities: No Edema, No Calf Tenderness Neurology: alert, oriented, follow commands Assessment Assessment 1. Syncope with nontraumatic fall: Suspect from hypoglycemic reaction combined with low intravascular volume 2. Inappropriate Sinus tachycardia: HR 90-100. No ectopies overnight 3. Recent diarrhea: resolved 4. HTN: labile. Cardizem and atenolol has not been resumed overnight 6. DM2/HLP 7. CAD: stable 8. No orthostasis: sitting BP 161/100, standing 156/98 Recommendations 1. Noted with low BG yesterday. Avoid hypoglycemic reaction. Pt is on levemir and victoza and novolog. Defer to PCP 2. Better after IV hydration. Encouraged snacks and adequacy of po hydration and timely checks of BG. 3. Continue wth secondary prevention 4. Follow up in office in 4 weeks and follow up with outpt PCP this week. 5. Resume home BP meds. 6. Encourage to check her BG when symptom arises and remind treatment as well. LUCIA LÓPEZ MD 05/09/17 1035: CARDIO Progress Notes Assessment Assessment Patient seen and examined 05/08/17. Agree with ARTIFIC[employer] MAKER's assessment and plan. Syncope probably from hypovolemia Tele did not show any arrhythmias CAD stable Continue IV hydration Follow up with our office in 4 weeks. DALTON GUDINO APRN May 08, 2017 10:15 ULCIA LÓPEZ MD May 09, 2017 10:35
--- NOTE | 2017-05-08 12:58 | PDOC ---
PROGRESS NOTES Chief Complaint Chief Complaint CC: syncope AFib Asthma Depression DM HLD HTN Neuropathy Hysterectomy. History of Present Illness History of Present Illness 42 yo F w/syncopal episode that presented with functional hypoglycemia and hypovolemia. UTI found on UA. Vitals Vitals Vital Signs Date Time Temp Pulse Resp B/P (MAP) Pulse Ox O2 Delivery O2 Flow Rate FiO2 05/08/17 10:26 113 129/79 (96) 96 05/08/17 10:25 98.1 18 Room Air 98.1 Physical Exam General: Alert, Oriented X3, Cooperative, No acute distress Heart: Regular rate, Normal S1, Normal S2, Other (2/6 systolic murmur to LLS border) Lungs: Wheezing Abdomen: Soft, No tenderness Extremities: No edema Skin: No breakdown, No significant lesion, Other (dried right tricep and right mid back clustered macular lesions from recent shingles. ) Labs LABS Laboratory Tests Test 05/07/17 12:45 05/07/17 15:50 05/07/17 16:49 05/07/17 20:03 White Blood Count 11.5 x10^3/uL (4.0-11.0) Red Blood Count 4.53 x10^6/uL (3.50-5.40) Hemoglobin 13.3 g/dL (12.0-15.5) Hematocrit 39.7 % (36.0-47.0) Mean Corpuscular Volume 88 fL (79-100) Mean Corpuscular Hemoglobin 29 pg (25-35) Mean Corpuscular Hemoglobin Concent 33 g/dL (31-37) Red Cell Distribution Width 14.3 % (11.5-14.5) Platelet Count 252 x10^3/uL (140-400) Neutrophils (%) (Auto) 66 % (31-73) Lymphocytes (%) (Auto) 26 % (24-48) Monocytes (%) (Auto) 6 % (0-9) Eosinophils (%) (Auto) 1 % (0-3) Basophils (%) (Auto) 1 % (0-3) Neutrophils # (Auto) 7.6 x10^3uL (1.8-7.7) Lymphocytes # (Auto) 3.0 x10^3/uL (1.0-4.8) Monocytes # (Auto) 0.7 x10^3/uL (0.0-1.1) Eosinophils # (Auto) 0.2 x10^3/uL (0.0-0.7) Basophils # (Auto) 0.1 x10^3/uL (0.0-0.2) Prothrombin Time 12.5 SEC (11.7-14.0) Prothromb Time International Ratio 1.0 (0.8-1.1) Sodium Level 142 mmol/L (136-145) Potassium Level 3.5 mmol/L (3.5-5.1) Chloride Level 101 mmol/L (98-107) Carbon Dioxide Level 35 mmol/L (21-32) Anion Gap 6 (6-14) Blood Urea Nitrogen 14 mg/dL (7-20) Creatinine 0.8 mg/dL (0.6-1.0) Estimated GFR (Cockcroft-Gault) 77.9 Glucose Level 62 mg/dL (70-99) Calcium Level 9.1 mg/dL (8.5-10.1) Magnesium Level 2.0 mg/dL (1.8-2.4) Total Bilirubin 0.3 mg/dL (0.2-1.0) Direct Bilirubin 0.1 mg/dL (0.0-0.2) Aspartate Amino Transf (AST/SGOT) 21 U/L (15-37) Alanine Aminotransferase (ALT/SGPT) 29 U/L (14-59) Alkaline Phosphatase 121 U/L (46-116) Creatine Kinase 41 U/L (26-192) Creatine Kinase MB (Mass) 0.5 ng/mL (0.0-3.6) Creatine Kinase MB Relative Index % (0-4) Troponin I Quantitative < 0.017 ng/mL (0.000-0.055) < 0.017 ng/mL (0.000-0.055) RL-Ine-O-Type Natriuretic Peptide 33 pg/mL (0-124) Total Protein 7.8 g/dL (6.4-8.2) Albumin 3.7 g/dL (3.4-5.0) Lipase 73 U/L (73-393) Thyroid Stimulating Hormone (TSH) 1.046 uIU/mL (0.358-3.74) Urine Color Yellow Urine Clarity Clear Urine pH 5.5 Urine Specific Hext 1.020 Urine Protein Negative mg/dL (NEG-TRACE) Urine Glucose (UA) Negative mg/dL (NEG) Urine Ketones (Stick) Negative mg/dL (NEG) Urine Blood Negative (NEG) Urine Nitrite Negative (NEG) Urine Bilirubin Negative (NEG) Urine Urobilinogen Dipstick 0.2 mg/dL (0.2 mg/dL) Urine Leukocyte Esterase Moderate (NEG) Urine RBC 0 /HPF (0-2) Urine WBC 5-10 /HPF (0-4) Urine Squamous Epithelial Cells Occ /LPF Urine Bacteria 0 /HPF (0-FEW) Urine Mucus Mod /LPF Urine Test Negative (NEG) Urine Opiates Screen Neg (NEG) Urine Methadone Screen Neg (NEG) Urine Barbiturates Neg (NEG) Urine Phencyclidine Screen Neg (NEG) Urine Amphetamine/Methamphetamine Neg (NEG) Urine Benzodiazepines Screen Neg (NEG) Urine Cocaine Screen Neg (NEG) Urine Cannabinoids Screen Neg (NEG) Urine Ethyl Alcohol Neg (NEG) Glucose (Fingerstick) 79 mg/dL (70-99) Test 05/07/17 20:33 05/07/17 23:00 05/08/17 02:05 05/08/17 07:19 Glucose (Fingerstick) 117 mg/dL (70-99) 182 mg/dL (70-99) Urine Collection Type Unknown Urine Color Yellow Urine Clarity Clear Urine pH 6.0 Urine Specific Hext 1.010 Urine Protein Negative mg/dL (NEG-TRACE) Urine Glucose (UA) Negative mg/dL (NEG) Urine Ketones (Stick) Negative mg/dL (NEG) Urine Blood Negative (NEG) Urine Nitrite Negative (NEG) Urine Bilirubin Negative (NEG) Urine Urobilinogen Dipstick 0.2 mg/dL (0.2 mg/dL) Urine Leukocyte Esterase Trace (NEG) Urine RBC 0 /HPF (0-2) Urine WBC 1-4 /HPF (0-4) Urine Squamous Epithelial Cells Many /LPF Urine Bacteria 0 /HPF (0-FEW) Urine Mucus Slight /LPF White Blood Count 9.5 x10^3/uL (4.0-11.0) Red Blood Count 4.36 x10^6/uL (3.50-5.40) Hemoglobin 12.7 g/dL (12.0-15.5) Hematocrit 38.3 % (36.0-47.0) Mean Corpuscular Volume 88 fL (79-100) Mean Corpuscular Hemoglobin 29 pg (25-35) Mean Corpuscular Hemoglobin Concent 33 g/dL (31-37) Red Cell Distribution Width 14.5 % (11.5-14.5) Platelet Count 243 x10^3/uL (140-400) Neutrophils (%) (Auto) 65 % (31-73) Lymphocytes (%) (Auto) 27 % (24-48) Monocytes (%) (Auto) 6 % (0-9) Eosinophils (%) (Auto) 1 % (0-3) Basophils (%) (Auto) 1 % (0-3) Neutrophils # (Auto) 6.2 x10^3uL (1.8-7.7) Lymphocytes # (Auto) 2.6 x10^3/uL (1.0-4.8) Monocytes # (Auto) 0.5 x10^3/uL (0.0-1.1) Eosinophils # (Auto) 0.1 x10^3/uL (0.0-0.7) Basophils # (Auto) 0.1 x10^3/uL (0.0-0.2) Sodium Level 145 mmol/L (136-145) Potassium Level 3.5 mmol/L (3.5-5.1) Chloride Level 104 mmol/L (98-107) Carbon Dioxide Level 33 mmol/L (21-32) Anion Gap 8 (6-14) Blood Urea Nitrogen 8 mg/dL (7-20) Creatinine 0.7 mg/dL (0.6-1.0) Estimated GFR (Cockcroft-Gault) 90.9 Glucose Level 128 mg/dL (70-99) Calcium Level 8.8 mg/dL (8.5-10.1) Magnesium Level 1.9 mg/dL (1.8-2.4) Troponin I Quantitative < 0.017 ng/mL (0.000-0.055) Test 05/08/17 11:36 Glucose (Fingerstick) 219 mg/dL (70-99) Review of Systems Review of Systems Syncope has resolved Pt anxious Assessment and Plan Assessmemt and Plan 1. Syncope: likely combination of dehydration and functional hypoglycemia, continue IVF 2. AFib: continue to follow 3. Asthma: continue NEUROPSYCHOLOGIST rescue inhaler 4. Depression: continue NEUROPSYCHOLOGIST trazodone 5. DM: DC victoza, continue NEUROPSYCHOLOGIST insulin, encourage at home DM education for pt 6. HLD: continue to follow 7. HTN: resume at home meds after DC 8. Neuropathy: continue NEUROPSYCHOLOGIST gabapentin Dispo: DC today Problems: Comment Review of Relevant I have reviewed the following items emery (where applicable) has been applied. Labs Laboratory Tests Test 05/07/17 12:45 05/07/17 15:50 05/07/17 16:49 05/07/17 20:03 White Blood Count 11.5 x10^3/uL (4.0-11.0) Red Blood Count 4.53 x10^6/uL (3.50-5.40) Hemoglobin 13.3 g/dL (12.0-15.5) Hematocrit 39.7 % (36.0-47.0) Mean Corpuscular Volume 88 fL (79-100) Mean Corpuscular Hemoglobin 29 pg (25-35) Mean Corpuscular Hemoglobin Concent 33 g/dL (31-37) Red Cell Distribution Width 14.3 % (11.5-14.5) Platelet Count 252 x10^3/uL (140-400) Neutrophils (%) (Auto) 66 % (31-73) Lymphocytes (%) (Auto) 26 % (24-48) Monocytes (%) (Auto) 6 % (0-9) Eosinophils (%) (Auto) 1 % (0-3) Basophils (%) (Auto) 1 % (0-3) Neutrophils # (Auto) 7.6 x10^3uL (1.8-7.7) Lymphocytes # (Auto) 3.0 x10^3/uL (1.0-4.8) Monocytes # (Auto) 0.7 x10^3/uL (0.0-1.1) Eosinophils # (Auto) 0.2 x10^3/uL (0.0-0.7) Basophils # (Auto) 0.1 x10^3/uL (0.0-0.2) Prothrombin Time 12.5 SEC (11.7-14.0) Prothromb Time International Ratio 1.0 (0.8-1.1) Sodium Level 142 mmol/L (136-145) Potassium Level 3.5 mmol/L (3.5-5.1) Chloride Level 101 mmol/L (98-107) Carbon Dioxide Level 35 mmol/L (21-32) Anion Gap 6 (6-14) Blood Urea Nitrogen 14 mg/dL (7-20) Creatinine 0.8 mg/dL (0.6-1.0) Estimated GFR (Cockcroft-Gault) 77.9 Glucose Level 62 mg/dL (70-99) Calcium Level 9.1 mg/dL (8.5-10.1) Magnesium Level 2.0 mg/dL (1.8-2.4) Total Bilirubin 0.3 mg/dL (0.2-1.0) Direct Bilirubin 0.1 mg/dL (0.0-0.2) Aspartate Amino Transf (AST/SGOT) 21 U/L (15-37) Alanine Aminotransferase (ALT/SGPT) 29 U/L (14-59) Alkaline Phosphatase 121 U/L (46-116) Creatine Kinase 41 U/L (26-192) Creatine Kinase MB (Mass) 0.5 ng/mL (0.0-3.6) Creatine Kinase MB Relative Index % (0-4) Troponin I Quantitative < 0.017 ng/mL (0.000-0.055) < 0.017 ng/mL (0.000-0.055) JP-Qhk-D-Type Natriuretic Peptide 33 pg/mL (0-124) Total Protein 7.8 g/dL (6.4-8.2) Albumin 3.7 g/dL (3.4-5.0) Lipase 73 U/L (73-393) Thyroid Stimulating Hormone (TSH) 1.046 uIU/mL (0.358-3.74) Urine Color Yellow Urine Clarity Clear Urine pH 5.5 Urine Specific Hext 1.020 Urine Protein Negative mg/dL (NEG-TRACE) Urine Glucose (UA) Negative mg/dL (NEG) Urine Ketones (Stick) Negative mg/dL (NEG) Urine Blood Negative (NEG) Urine Nitrite Negative (NEG) Urine Bilirubin Negative (NEG) Urine Urobilinogen Dipstick 0.2 mg/dL (0.2 mg/dL) Urine Leukocyte Esterase Moderate (NEG) Urine RBC 0 /HPF (0-2) Urine WBC 5-10 /HPF (0-4) Urine Squamous Epithelial Cells Occ /LPF Urine Bacteria 0 /HPF (0-FEW) Urine Mucus Mod /LPF Urine Test Negative (NEG) Urine Opiates Screen Neg (NEG) Urine Methadone Screen Neg (NEG) Urine Barbiturates Neg (NEG) Urine Phencyclidine Screen Neg (NEG) Urine Amphetamine/Methamphetamine Neg (NEG) Urine Benzodiazepines Screen Neg (NEG) Urine Cocaine Screen Neg (NEG) Urine Cannabinoids Screen Neg (NEG) Urine Ethyl Alcohol Neg (NEG) Glucose (Fingerstick) 79 mg/dL (70-99) Test 05/07/17 20:33 05/07/17 23:00 05/08/17 02:05 05/08/17 07:19 Glucose (Fingerstick) 117 mg/dL (70-99) 182 mg/dL (70-99) Urine Collection Type Unknown Urine Color Yellow Urine Clarity Clear Urine pH 6.0 Urine Specific Hext 1.010 Urine Protein Negative mg/dL (NEG-TRACE) Urine Glucose (UA) Negative mg/dL (NEG) Urine Ketones (Stick) Negative mg/dL (NEG) Urine Blood Negative (NEG) Urine Nitrite Negative (NEG) Urine Bilirubin Negative (NEG) Urine Urobilinogen Dipstick 0.2 mg/dL (0.2 mg/dL) Urine Leukocyte Esterase Trace (NEG) Urine RBC 0 /HPF (0-2) Urine WBC 1-4 /HPF (0-4) Urine Squamous Epithelial Cells Many /LPF Urine Bacteria 0 /HPF (0-FEW) Urine Mucus Slight /LPF White Blood Count 9.5 x10^3/uL (4.0-11.0) Red Blood Count 4.36 x10^6/uL (3.50-5.40) Hemoglobin 12.7 g/dL (12.0-15.5) Hematocrit 38.3 % (36.0-47.0) Mean Corpuscular Volume 88 fL (79-100) Mean Corpuscular Hemoglobin 29 pg (25-35) Mean Corpuscular Hemoglobin Concent 33 g/dL (31-37) Red Cell Distribution Width 14.5 % (11.5-14.5) Platelet Count 243 x10^3/uL (140-400) Neutrophils (%) (Auto) 65 % (31-73) Lymphocytes (%) (Auto) 27 % (24-48) Monocytes (%) (Auto) 6 % (0-9) Eosinophils (%) (Auto) 1 % (0-3) Basophils (%) (Auto) 1 % (0-3) Neutrophils # (Auto) 6.2 x10^3uL (1.8-7.7) Lymphocytes # (Auto) 2.6 x10^3/uL (1.0-4.8) Monocytes # (Auto) 0.5 x10^3/uL (0.0-1.1) Eosinophils # (Auto) 0.1 x10^3/uL (0.0-0.7) Basophils # (Auto) 0.1 x10^3/uL (0.0-0.2) Sodium Level 145 mmol/L (136-145) Potassium Level 3.5 mmol/L (3.5-5.1) Chloride Level 104 mmol/L (98-107) Carbon Dioxide Level 33 mmol/L (21-32) Anion Gap 8 (6-14) Blood Urea Nitrogen 8 mg/dL (7-20) Creatinine 0.7 mg/dL (0.6-1.0) Estimated GFR (Cockcroft-Gault) 90.9 Glucose Level 128 mg/dL (70-99) Calcium Level 8.8 mg/dL (8.5-10.1) Magnesium Level 1.9 mg/dL (1.8-2.4) Troponin I Quantitative < 0.017 ng/mL (0.000-0.055) Test 05/08/17 11:36 Glucose (Fingerstick) 219 mg/dL (70-99) Laboratory Tests Test 05/07/17 12:45 05/07/17 15:50 05/07/17 16:49 05/07/17 20:03 White Blood Count 11.5 x10^3/uL (4.0-11.0) Red Blood Count 4.53 x10^6/uL (3.50-5.40) Hemoglobin 13.3 g/dL (12.0-15.5) Hematocrit 39.7 % (36.0-47.0) Mean Corpuscular Volume 88 fL (79-100) Mean Corpuscular Hemoglobin 29 pg (25-35) Mean Corpuscular Hemoglobin Concent 33 g/dL (31-37) Red Cell Distribution Width 14.3 % (11.5-14.5) Platelet Count 252 x10^3/uL (140-400) Neutrophils (%) (Auto) 66 % (31-73) Lymphocytes (%) (Auto) 26 % (24-48) Monocytes (%) (Auto) 6 % (0-9) Eosinophils (%) (Auto) 1 % (0-3) Basophils (%) (Auto) 1 % (0-3) Neutrophils # (Auto) 7.6 x10^3uL (1.8-7.7) Lymphocytes # (Auto) 3.0 x10^3/uL (1.0-4.8) Monocytes # (Auto) 0.7 x10^3/uL (0.0-1.1) Eosinophils # (Auto) 0.2 x10^3/uL (0.0-0.7) Basophils # (Auto) 0.1 x10^3/uL (0.0-0.2) Prothrombin Time 12.5 SEC (11.7-14.0) Prothromb Time International Ratio 1.0 (0.8-1.1) Sodium Level 142 mmol/L (136-145) Potassium Level 3.5 mmol/L (3.5-5.1) Chloride Level 101 mmol/L (98-107) Carbon Dioxide Level 35 mmol/L (21-32) Anion Gap 6 (6-14) Blood Urea Nitrogen 14 mg/dL (7-20) Creatinine 0.8 mg/dL (0.6-1.0) Estimated GFR (Cockcroft-Gault) 77.9 Glucose Level 62 mg/dL (70-99) Calcium Level 9.1 mg/dL (8.5-10.1) Magnesium Level 2.0 mg/dL (1.8-2.4) Total Bilirubin 0.3 mg/dL (0.2-1.0) Direct Bilirubin 0.1 mg/dL (0.0-0.2) Aspartate Amino Transf (AST/SGOT) 21 U/L (15-37) Alanine Aminotransferase (ALT/SGPT) 29 U/L (14-59) Alkaline Phosphatase 121 U/L (46-116) Creatine Kinase 41 U/L (26-192) Creatine Kinase MB (Mass) 0.5 ng/mL (0.0-3.6) Creatine Kinase MB Relative Index % (0-4) Troponin I Quantitative < 0.017 ng/mL (0.000-0.055) < 0.017 ng/mL (0.000-0.055) GQ-Hpl-Y-Type Natriuretic Peptide 33 pg/mL (0-124) Total Protein 7.8 g/dL (6.4-8.2) Albumin 3.7 g/dL (3.4-5.0) Lipase 73 U/L (73-393) Thyroid Stimulating Hormone (TSH) 1.046 uIU/mL (0.358-3.74) Urine Color Yellow Urine Clarity Clear Urine pH 5.5 Urine Specific Hext 1.020 Urine Protein Negative mg/dL (NEG-TRACE) Urine Glucose (UA) Negative mg/dL (NEG) Urine Ketones (Stick) Negative mg/dL (NEG) Urine Blood Negative (NEG) Urine Nitrite Negative (NEG) Urine Bilirubin Negative (NEG) Urine Urobilinogen Dipstick 0.2 mg/dL (0.2 mg/dL) Urine Leukocyte Esterase Moderate (NEG) Urine RBC 0 /HPF (0-2) Urine WBC 5-10 /HPF (0-4) Urine Squamous Epithelial Cells Occ /LPF Urine Bacteria 0 /HPF (0-FEW) Urine Mucus Mod /LPF Urine Test Negative (NEG) Urine Opiates Screen Neg (NEG) Urine Methadone Screen Neg (NEG) Urine Barbiturates Neg (NEG) Urine Phencyclidine Screen Neg (NEG) Urine Amphetamine/Methamphetamine Neg (NEG) Urine Benzodiazepines Screen Neg (NEG) Urine Cocaine Screen Neg (NEG) Urine Cannabinoids Screen Neg (NEG) Urine Ethyl Alcohol Neg (NEG) Glucose (Fingerstick) 79 mg/dL (70-99) Test 05/07/17 20:33 05/07/17 23:00 05/08/17 02:05 05/08/17 07:19 Glucose (Fingerstick) 117 mg/dL (70-99) 182 mg/dL (70-99) Urine Collection Type Unknown Urine Color Yellow Urine Clarity Clear Urine pH 6.0 Urine Specific Hext 1.010 Urine Protein Negative mg/dL (NEG-TRACE) Urine Glucose (UA) Negative mg/dL (NEG) Urine Ketones (Stick) Negative mg/dL (NEG) Urine Blood Negative (NEG) Urine Nitrite Negative (NEG) Urine Bilirubin Negative (NEG) Urine Urobilinogen Dipstick 0.2 mg/dL (0.2 mg/dL) Urine Leukocyte Esterase Trace (NEG) Urine RBC 0 /HPF (0-2) Urine WBC 1-4 /HPF (0-4) Urine Squamous Epithelial Cells Many /LPF Urine Bacteria 0 /HPF (0-FEW) Urine Mucus Slight /LPF White Blood Count 9.5 x10^3/uL (4.0-11.0) Red Blood Count 4.36 x10^6/uL (3.50-5.40) Hemoglobin 12.7 g/dL (12.0-15.5) Hematocrit 38.3 % (36.0-47.0) Mean Corpuscular Volume 88 fL (79-100) Mean Corpuscular Hemoglobin 29 pg (25-35) Mean Corpuscular Hemoglobin Concent 33 g/dL (31-37) Red Cell Distribution Width 14.5 % (11.5-14.5) Platelet Count 243 x10^3/uL (140-400) Neutrophils (%) (Auto) 65 % (31-73) Lymphocytes (%) (Auto) 27 % (24-48) Monocytes (%) (Auto) 6 % (0-9) Eosinophils (%) (Auto) 1 % (0-3) Basophils (%) (Auto) 1 % (0-3) Neutrophils # (Auto) 6.2 x10^3uL (1.8-7.7) Lymphocytes # (Auto) 2.6 x10^3/uL (1.0-4.8) Monocytes # (Auto) 0.5 x10^3/uL (0.0-1.1) Eosinophils # (Auto) 0.1 x10^3/uL (0.0-0.7) Basophils # (Auto) 0.1 x10^3/uL (0.0-0.2) Sodium Level 145 mmol/L (136-145) Potassium Level 3.5 mmol/L (3.5-5.1) Chloride Level 104 mmol/L (98-107) Carbon Dioxide Level 33 mmol/L (21-32) Anion Gap 8 (6-14) Blood Urea Nitrogen 8 mg/dL (7-20) Creatinine 0.7 mg/dL (0.6-1.0) Estimated GFR (Cockcroft-Gault) 90.9 Glucose Level 128 mg/dL (70-99) Calcium Level 8.8 mg/dL (8.5-10.1) Magnesium Level 1.9 mg/dL (1.8-2.4) Troponin I Quantitative < 0.017 ng/mL (0.000-0.055) Test 05/08/17 11:36 Glucose (Fingerstick) 219 mg/dL (70-99) Medications Current Medications Sodium Chloride 1,000 ml @ 1,000 mls/hr 1X ONCE IV Last administered on 13:51; Start 05/07/17 at 12:15; Stop 05/07/17 at 13:14; Status DC Aspirin (Nona Aspirin) 325 mg 1X ONCE PO Last administered on 05/07/17 14:20 ; Start 05/07/17 at 14:00; Stop 05/07/17 at 14:01; Status DC Ondansetron HCl (Zofran) 4 mg PRN Q8HRS PRN IV NAUSEA/VOMITING Last administered on 05/08/17 05:36; Start 05/07/17 at 14:15; Stop 05/08/17 at 14:14 Sodium Chloride 1,000 ml @ 100 mls/hr 1X ONCE IV Last administered on 15:39; Start 05/07/17 at 15:00; Stop 05/08/17 at 00:59; Status DC Acetaminophen/ Hydrocodone Bitart (Lortab 5/325) 1-2 tab PRN Q4HRS PRN PO PAIN Last administered on 05/08/17 05:36; Start 05/07/17 at 20:00 Tramadol HCl (Ultram) 50 mg PRN Q4HRS PRN PO MILD TO MODERATE PAIN Last administered on 05/08/17 02:36; Start 05/07/17 at 20:00 Trazodone HCl (Desyrel) 50 mg HS PO Last administered on 05/07/17 20:26; Start 05/07/17 at 21:00 Zolpidem Tartrate (Ambien) 5 mg PRN QHS PRN PO INSOMNIA; Start 05/07/17 at 20: 00; Stop 05/07/17 at 20:05; Status DC Gabapentin (Neurontin) 800 mg TID PO Last administered on 05/08/17 08:53; Start 05/07/17 at 21:00 Zolpidem Tartrate (Ambien) 5 mg PRN QHS PRN PO INSOMNIA Last administered on t 22:23; Start 05/07/17 at 20:15 Ceftriaxone Sodium 1 gm/ Sodium Chloride 50 ml @ 100 mls/hr QHS IV Last administered on 05/08/17 00:08; Start 05/07/17 at 23:30 Aspirin (Ecotrin) 81 mg DAILY PO ; Start 05/08/17 at 10:30 Diltiazem HCl (Cardizem 24hr Cd) 180 mg DAILY PO ; Start 05/08/17 at 10:30 Active Scripts Active Zofran (Ondansetron Hcl) 4 Mg Tablet 4 Mg PO BID PRN Diltiazem 24Hr Cd (Diltiazem HCl) 180 Mg Cap.er.24h 180 Mg PO DAILY Reported Ambien (Zolpidem Tartrate) 5 Mg Tablet 12.5 Mg PO HS PRN [place] 5-325 Tablet (Acetaminophen/Hydrocodone Bitart) 1 Each Tablet 1-2 Tab PO PRN Q4-6HRS PRN Trazodone Hcl 50 Mg Tablet 50 Mg PO HS Tramadol Hcl 50 Mg Tablet 50 Mg PO Q4H PRN Acyclovir 800 Mg Tablet 1 Tab PO 5XDAY Tizanidine Hcl 4 Mg Tablet 8 Mg PO TID PRN Aspirin Ec (Aspirin) 81 Mg Tablet.dr 81 Mg PO DAILY Gabapentin 800 Mg Tablet 800 Mg PO TID Victoza 3-[place] (Liraglutide) 0.6 Mg/0.1 Ml Pen.injctr 1.8 Mg SQ DAILY Omeprazole 40 Mg Capsule.dr 40 Mg PO DAILY Iron (Ferrous Sulfate) 325 Mg Tablet 325 Mg PO DAILY Valium (Diazepam) 5 Mg Tablet 5 Mg PO DAILY Lexapro (Escitalopram Oxalate) 5 Mg Tablet 5 Mg PO DAILY Fexofenadine Hcl 180 Mg Tablet 180 Mg PO DAILY Albuterol Sulfate Conc Neb Soln (Albuterol Sulfate) 2.5 Mg/0.5 Ml Vial.neb 2.5 Mg NEB Q4HRS PRN Simvastatin 40 Mg Tablet 40 Mg PO HS Symbicort 160-4.5 Mcg Inhaler (Budesonide/Formoterol Fumarate) 10.2 Gm Hfa.aer.ad 2 Puff IH BID Novolog (Insulin Aspart) 100 Unit/1 Ml Cartridge 27 Unit SQ TIDAC Lantus (Insulin Glargine,Hum.rec.anlog) 100 Unit/1 Ml Vial 70 Unit SQ HS Vitals/I & O Vital Sign - Last 24 Hours 05/07/17 05/07/17 05/07/17 05/07/17 12:42 13:12 13:36 13:42 Pulse 92 94 97 95 Resp 16 18 17 14 B/P (MAP) 99/63 (75) 108/55 (72) 109/58 (75) 113/59 (77) Pulse Ox 94 94 92 91 O2 Delivery Room Air Room Air Room Air Room Air 05/07/17 05/07/17 05/07/17 05/07/17 14:12 14:42 15:12 15:52 Pulse 97 97 97 105 Resp 17 15 15 B/P (MAP) 117/99 (105) 126/70 (88) 123/65 (84) 153/72 (99) Pulse Ox 89 94 94 97 O2 Delivery Room Air Room Air Room Air Room Air 05/07/17 05/07/17 05/07/17 05/07/17 16:12 16:42 17:12 18:15 Pulse 99 99 102 106 Resp 14 16 32 18 B/P (MAP) 160/84 (109) 161/76 (104) 159/76 (103) 163/78 (106) Pulse Ox 94 94 95 O2 Delivery Room Air Room Air Room Air Room Air 05/07/17 05/07/17 05/07/17 05/07/17 18:16 20:00 20:26 22:23 Pulse 106 Resp 18 16 16 B/P (MAP) 163/78 (106) Pulse Ox 95 O2 Delivery Room Air Room Air Room Air Room Air 05/07/17 05/08/17 05/08/17 05/08/17 23:51 00:37 02:36 03:43 Temp 98.2 98.5 98.2 98.5 Pulse 120 107 Resp 18 16 18 18 B/P (MAP) 128/49 (75) 152/86 (108) Pulse Ox 93 96 O2 Delivery Room Air Room Air Room Air Room Air 05/08/17 05/08/17 05/08/17 05/08/17 05:36 07:17 08:00 10:25 Temp 98.4 98.1 98.4 98.1 Pulse 107 105 Resp 18 18 18 B/P (MAP) 177/99 (125) 166/98 (120) Pulse Ox 94 95 O2 Delivery Room Air Room Air Room Air 05/08/17 05/08/17 10:26 10:26 Pulse 110 113 B/P (MAP) 160/93 (115) 129/79 (96) Pulse Ox 94 96 Intake and Output 05/07/17 05/07/17 05/08/17 15:00 23:00 07:00 Intake Total 1000 ml 700 ml Output Total 700 ml Balance 1000 ml 0 ml MEDHAT LARSON III DO May 08, 2017 12:58
[2017-05-08] MEDS: ASPIRIN ENTERIC COATED 81 MG TABLET.DR. PO SCH (13:37)
[2017-05-08] MEDS ORDERED: ONDANSETRON PF 4 MG/2 ML VIAL. IV PRN (18:00)
[2017-05-08] MEDS ORDERED: LABETALOL 20 MG/4 ML DISP.SYRIN. IVP PRN (18:00)
[2017-05-08] MEDS ORDERED: cloNIDine HCL 0.1 MG TABLET PO PRN (21:00)
[2017-05-08] MEDS: traZODone 50 MG TABLET. PO SCH (22:00)
[2017-05-08] MEDS: ZOLPIDEM 5 MG TABLET. PO PRN (22:00)
[2017-05-08] MEDS ORDERED: traZODone 100 MG TABLET. PO ONE (23:15)
[2017-05-09 03:15] VITALS: BP 119/79
[2017-05-09 06:59] VITALS: BP 124/92
[2017-05-09] MEDS: ASPIRIN ENTERIC COATED 81 MG TABLET.DR. PO SCH (08:40)
[2017-05-09] MEDS: GABAPENTIN 400 MG CAPSULE. PO SCH ×2 (08:40→15:44)
[2017-05-09] MEDS: HYDROcodone/APAP 5/325MG 1 TAB TABLET PO PRN ×2 (08:41→15:49)
[2017-05-09] MEDS ORDERED: ATENOLOL 50 MG TABLET. PO SCH (09:00)
[2017-05-09 10:42] VITALS: BP 143/92
--- NOTE | 2017-05-09 11:47 | PDOC ---
PROGRESS NOTES Chief Complaint Chief Complaint CC: syncope AFib Asthma Depression DM HLD HTN Neuropathy Hysterectomy. History of Present Illness History of Present Illness 42 yo F w/syncopal episode that presented with functional hypoglycemia and hypovolemia. UTI found on UA. Planned D/C yesterday 05/08/17, but had spiking BP to 172/100 with N/V and D/C was cancelled. Was admin labetelol, clonidine, and zofran. Vitals Vitals Vital Signs Date Time Temp Pulse Resp B/P (MAP) Pulse Ox O2 Delivery O2 Flow Rate FiO2 05/09/17 10:42 98.0 93 18 143/92 (109) 96 Room Air 98.0 Physical Exam General: Alert, Oriented X3, Cooperative, No acute distress Heart: Regular rate, Normal S1, Normal S2, Other (2/6 systolic murmur to LLS border) Lungs: Wheezing Abdomen: Soft, No tenderness Extremities: No edema Skin: No breakdown, No significant lesion, Other (dried right tricep and right mid back clustered macular lesions from recent shingles. ) Labs LABS Laboratory Tests Test 05/08/17 15:32 05/08/17 17:00 05/08/17 21:09 05/09/17 07:09 Glucose (Fingerstick) 204 mg/dL (70-99) 184 mg/dL (70-99) 141 mg/dL (70-99) 166 mg/dL (70-99) Test 05/09/17 11:23 Glucose (Fingerstick) 326 mg/dL (70-99) Review of Systems Review of Systems Acute HTN resolved N/V resolved Assessment and Plan Assessmemt and Plan 1. Syncope: likely combination of dehydration and functional hypoglycemia, continue IVF 2. AFib: continue to follow 3. Asthma: continue [employer] rescue inhaler 4. Depression: continue [employer] trazodone 5. DM: DC victoza, continue [employer] insulin, encourage at home DM education for pt 6. HLD: continue to follow 7. HTN: resume at home meds after DC, follow up w/pcp in 1w for HTN 8. Neuropathy: continue [employer] gabapentin Dispo: DC to home today 05/09/17 Problems: Comment Review of Relevant I have reviewed the following items emery (where applicable) has been applied. Labs Laboratory Tests Test 05/07/17 12:45 05/07/17 15:50 05/07/17 16:49 05/07/17 20:03 White Blood Count 11.5 x10^3/uL (4.0-11.0) Red Blood Count 4.53 x10^6/uL (3.50-5.40) Hemoglobin 13.3 g/dL (12.0-15.5) Hematocrit 39.7 % (36.0-47.0) Mean Corpuscular Volume 88 fL (79-100) Mean Corpuscular Hemoglobin 29 pg (25-35) Mean Corpuscular Hemoglobin Concent 33 g/dL (31-37) Red Cell Distribution Width 14.3 % (11.5-14.5) Platelet Count 252 x10^3/uL (140-400) Neutrophils (%) (Auto) 66 % (31-73) Lymphocytes (%) (Auto) 26 % (24-48) Monocytes (%) (Auto) 6 % (0-9) Eosinophils (%) (Auto) 1 % (0-3) Basophils (%) (Auto) 1 % (0-3) Neutrophils # (Auto) 7.6 x10^3uL (1.8-7.7) Lymphocytes # (Auto) 3.0 x10^3/uL (1.0-4.8) Monocytes # (Auto) 0.7 x10^3/uL (0.0-1.1) Eosinophils # (Auto) 0.2 x10^3/uL (0.0-0.7) Basophils # (Auto) 0.1 x10^3/uL (0.0-0.2) Prothrombin Time 12.5 SEC (11.7-14.0) Prothromb Time International Ratio 1.0 (0.8-1.1) Sodium Level 142 mmol/L (136-145) Potassium Level 3.5 mmol/L (3.5-5.1) Chloride Level 101 mmol/L (98-107) Carbon Dioxide Level 35 mmol/L (21-32) Anion Gap 6 (6-14) Blood Urea Nitrogen 14 mg/dL (7-20) Creatinine 0.8 mg/dL (0.6-1.0) Estimated GFR (Cockcroft-Gault) 77.9 Glucose Level 62 mg/dL (70-99) Calcium Level 9.1 mg/dL (8.5-10.1) Magnesium Level 2.0 mg/dL (1.8-2.4) Total Bilirubin 0.3 mg/dL (0.2-1.0) Direct Bilirubin 0.1 mg/dL (0.0-0.2) Aspartate Amino Transf (AST/SGOT) 21 U/L (15-37) Alanine Aminotransferase (ALT/SGPT) 29 U/L (14-59) Alkaline Phosphatase 121 U/L (46-116) Creatine Kinase 41 U/L (26-192) Creatine Kinase MB (Mass) 0.5 ng/mL (0.0-3.6) Creatine Kinase MB Relative Index % (0-4) Troponin I Quantitative < 0.017 ng/mL (0.000-0.055) < 0.017 ng/mL (0.000-0.055) EC-Rjn-B-Type Natriuretic Peptide 33 pg/mL (0-124) Total Protein 7.8 g/dL (6.4-8.2) Albumin 3.7 g/dL (3.4-5.0) Lipase 73 U/L (73-393) Thyroid Stimulating Hormone (TSH) 1.046 uIU/mL (0.358-3.74) Urine Color Yellow Urine Clarity Clear Urine pH 5.5 Urine Specific [place] 1.020 Urine Protein Negative mg/dL (NEG-TRACE) Urine Glucose (UA) Negative mg/dL (NEG) Urine Ketones (Stick) Negative mg/dL (NEG) Urine Blood Negative (NEG) Urine Nitrite Negative (NEG) Urine Bilirubin Negative (NEG) Urine Urobilinogen Dipstick 0.2 mg/dL (0.2 mg/dL) Urine Leukocyte Esterase Moderate (NEG) Urine RBC 0 /HPF (0-2) Urine WBC 5-10 /HPF (0-4) Urine Squamous Epithelial Cells Occ /LPF Urine Bacteria 0 /HPF (0-FEW) Urine Mucus Mod /LPF Urine Test Negative (NEG) Urine Opiates Screen Neg (NEG) Urine Methadone Screen Neg (NEG) Urine Barbiturates Neg (NEG) Urine Phencyclidine Screen Neg (NEG) Urine Amphetamine/Methamphetamine Neg (NEG) Urine Benzodiazepines Screen Neg (NEG) Urine Cocaine Screen Neg (NEG) Urine Cannabinoids Screen Neg (NEG) Urine Ethyl Alcohol Neg (NEG) Glucose (Fingerstick) 79 mg/dL (70-99) Test 05/07/17 20:33 05/07/17 23:00 05/08/17 02:05 05/08/17 07:19 Glucose (Fingerstick) 117 mg/dL (70-99) 182 mg/dL (70-99) Urine Collection Type Unknown Urine Color Yellow Urine Clarity Clear Urine pH 6.0 Urine Specific [place] 1.010 Urine Protein Negative mg/dL (NEG-TRACE) Urine Glucose (UA) Negative mg/dL (NEG) Urine Ketones (Stick) Negative mg/dL (NEG) Urine Blood Negative (NEG) Urine Nitrite Negative (NEG) Urine Bilirubin Negative (NEG) Urine Urobilinogen Dipstick 0.2 mg/dL (0.2 mg/dL) Urine Leukocyte Esterase Trace (NEG) Urine RBC 0 /HPF (0-2) Urine WBC 1-4 /HPF (0-4) Urine Squamous Epithelial Cells Many /LPF Urine Bacteria 0 /HPF (0-FEW) Urine Mucus Slight /LPF White Blood Count 9.5 x10^3/uL (4.0-11.0) Red Blood Count 4.36 x10^6/uL (3.50-5.40) Hemoglobin 12.7 g/dL (12.0-15.5) Hematocrit 38.3 % (36.0-47.0) Mean Corpuscular Volume 88 fL (79-100) Mean Corpuscular Hemoglobin 29 pg (25-35) Mean Corpuscular Hemoglobin Concent 33 g/dL (31-37) Red Cell Distribution Width 14.5 % (11.5-14.5) Platelet Count 243 x10^3/uL (140-400) Neutrophils (%) (Auto) 65 % (31-73) Lymphocytes (%) (Auto) 27 % (24-48) Monocytes (%) (Auto) 6 % (0-9) Eosinophils (%) (Auto) 1 % (0-3) Basophils (%) (Auto) 1 % (0-3) Neutrophils # (Auto) 6.2 x10^3uL (1.8-7.7) Lymphocytes # (Auto) 2.6 x10^3/uL (1.0-4.8) Monocytes # (Auto) 0.5 x10^3/uL (0.0-1.1) Eosinophils # (Auto) 0.1 x10^3/uL (0.0-0.7) Basophils # (Auto) 0.1 x10^3/uL (0.0-0.2) Sodium Level 145 mmol/L (136-145) Potassium Level 3.5 mmol/L (3.5-5.1) Chloride Level 104 mmol/L (98-107) Carbon Dioxide Level 33 mmol/L (21-32) Anion Gap 8 (6-14) Blood Urea Nitrogen 8 mg/dL (7-20) Creatinine 0.7 mg/dL (0.6-1.0) Estimated GFR (Cockcroft-Gault) 90.9 Glucose Level 128 mg/dL (70-99) Calcium Level 8.8 mg/dL (8.5-10.1) Magnesium Level 1.9 mg/dL (1.8-2.4) Troponin I Quantitative < 0.017 ng/mL (0.000-0.055) Test 05/08/17 11:36 05/08/17 15:32 05/08/17 17:00 05/08/17 21:09 Glucose (Fingerstick) 219 mg/dL (70-99) 204 mg/dL (70-99) 184 mg/dL (70-99) 141 mg/dL (70-99) Test 05/09/17 07:09 05/09/17 11:23 Glucose (Fingerstick) 166 mg/dL (70-99) 326 mg/dL (70-99) Laboratory Tests Test 05/08/17 15:32 05/08/17 17:00 05/08/17 21:09 05/09/17 07:09 Glucose (Fingerstick) 204 mg/dL (70-99) 184 mg/dL (70-99) 141 mg/dL (70-99) 166 mg/dL (70-99) Test 05/09/17 11:23 Glucose (Fingerstick) 326 mg/dL (70-99) Medications Current Medications Sodium Chloride 1,000 ml @ 1,000 mls/hr 1X ONCE IV Last administered on 13:51; Start 05/07/17 at 12:15; Stop 05/07/17 at 13:14; Status DC Aspirin (Nona Aspirin) 325 mg 1X ONCE PO Last administered on 05/07/17 14:20 ; Start 05/07/17 at 14:00; Stop 05/07/17 at 14:01; Status DC Ondansetron HCl (Zofran) 4 mg PRN Q8HRS PRN IV NAUSEA/VOMITING Last administered on 05/08/17 05:36; Start 05/07/17 at 14:15; Stop 05/08/17 at 14:14 ; Status DC Sodium Chloride 1,000 ml @ 100 mls/hr 1X ONCE IV Last administered on 15:39; Start 05/07/17 at 15:00; Stop 05/08/17 at 00:59; Status DC Acetaminophen/ Hydrocodone Bitart (Lortab 5/325) 1-2 tab PRN Q4HRS PRN PO PAIN Last administered on 05/09/17 08:41; Start 05/07/17 at 20:00 Tramadol HCl (Ultram) 50 mg PRN Q4HRS PRN PO MILD TO MODERATE PAIN Last administered on 05/08/17 02:36; Start 05/07/17 at 20:00 Trazodone HCl (Desyrel) 50 mg HS PO Last administered on 05/08/17 22:00; Start 05/07/17 at 21:00; Stop 05/08/17 at 22:30; Status DC Zolpidem Tartrate (Ambien) 5 mg PRN QHS PRN PO INSOMNIA; Start 05/07/17 at 20: 00; Stop 05/07/17 at 20:05; Status DC Gabapentin (Neurontin) 800 mg TID PO Last administered on 05/09/17 08:40; Start 05/07/17 at 21:00 Zolpidem Tartrate (Ambien) 5 mg PRN QHS PRN PO INSOMNIA Last administered on 22:00; Start 05/07/17 at 20:15 Ceftriaxone Sodium 1 gm/ Sodium Chloride 50 ml @ 100 mls/hr QHS IV Last administered on 05/08/17 22:01; Start 05/07/17 at 23:30 Aspirin (Ecotrin) 81 mg DAILY PO Last administered on 05/09/17 08:40; Start at 10:30 Diltiazem HCl (Cardizem 24hr Cd) 180 mg DAILY PO Last administered on 08:39; Start 05/08/17 at 10:30 Labetalol HCl (Normodyne) 10 mg PRN Q2HR PRN IVP HYPERTENSION, SEE COMMENTS; Start 05/08/17 at 18:00 Ondansetron HCl (Zofran) 4 mg PRN Q6HRS PRN IV NAUSEA/VOMITING; Start 05/08/17 at 18:00 Clonidine HCl (Catapres) 0.1 mg PRN Q1HR PRN PO HYPERTENSION, SEE COMMENTS Last administered on 05/08/17 22:01; Start 05/08/17 at 21:00 Trazodone HCl (Desyrel) 150 mg HS PO ; Start 05/09/17 at 21:00 Trazodone HCl (Desyrel) 100 mg 1X ONCE PO Last administered on 05/08/17 22:56 ; Start 05/08/17 at 23:15; Stop 05/08/17 at 23:16; Status DC Atenolol (Tenormin) 50 mg DAILY PO Last administered on 05/09/17 08:43; Start 05/09/17 at 09:00 Active Scripts Active Zofran (Ondansetron Hcl) 4 Mg Tablet 4 Mg PO BID PRN Diltiazem 24Hr Cd (Diltiazem HCl) 180 Mg Cap.er.24h 180 Mg PO DAILY Reported Ambien (Zolpidem Tartrate) 5 Mg Tablet 12.5 Mg PO HS PRN [place] 5-325 Tablet (Acetaminophen/Hydrocodone Bitart) 1 Each Tablet 1-2 Tab PO PRN Q4-6HRS PRN Trazodone Hcl 50 Mg Tablet 50 Mg PO HS Tramadol Hcl 50 Mg Tablet 50 Mg PO Q4H PRN Acyclovir 800 Mg Tablet 1 Tab PO 5XDAY Tizanidine Hcl 4 Mg Tablet 8 Mg PO TID PRN Aspirin Ec (Aspirin) 81 Mg Tablet.dr 81 Mg PO DAILY Gabapentin 800 Mg Tablet 800 Mg PO TID Victoza 3-[place] (Liraglutide) 0.6 Mg/0.1 Ml Pen.injctr 1.8 Mg SQ DAILY Omeprazole 40 Mg Capsule.dr 40 Mg PO DAILY Iron (Ferrous Sulfate) 325 Mg Tablet 325 Mg PO DAILY Valium (Diazepam) 5 Mg Tablet 5 Mg PO DAILY Lexapro (Escitalopram Oxalate) 5 Mg Tablet 5 Mg PO DAILY Fexofenadine Hcl 180 Mg Tablet 180 Mg PO DAILY Albuterol Sulfate Conc Neb Soln (Albuterol Sulfate) 2.5 Mg/0.5 Ml Vial.neb 2.5 Mg NEB Q4HRS PRN Simvastatin 40 Mg Tablet 40 Mg PO HS Symbicort 160-4.5 Mcg Inhaler (Budesonide/Formoterol Fumarate) 10.2 Gm Hfa.aer.ad 2 Puff IH BID Novolog (Insulin Aspart) 100 Unit/1 Ml Cartridge 27 Unit SQ TIDAC Lantus (Insulin Glargine,Hum.rec.anlog) 100 Unit/1 Ml Vial 70 Unit SQ HS Vitals/I & O Vital Sign - Last 24 Hours 05/08/17 05/08/17 05/08/17 05/08/17 13:26 13:26 13:38 13:39 Pulse 110 B/P (MAP) 161/100 (120) 155/96 (115) 161/100 Pulse Ox 94 O2 Delivery Room Air 05/08/17 05/08/17 05/08/17 05/08/17 15:04 18:29 19:10 20:16 Temp 98.4 98.8 98.4 98.8 Pulse 108 104 Resp 17 17 B/P (MAP) 159/105 (123) 176/107 (130) Pulse Ox 95 95 96 O2 Delivery Room Air Room Air Room Air Room Air 05/08/17 05/08/17 05/08/17 05/09/17 22:00 22:01 23:10 03:15 Temp 99.1 98.0 99.1 98.0 Pulse 104 105 95 Resp 18 18 18 B/P (MAP) 176/107 172/100 (124) 119/79 (92) Pulse Ox 96 98 91 O2 Delivery Room Air Room Air Room Air 05/09/17 05/09/17 05/09/17 05/09/17 06:59 08:00 08:39 08:41 Temp 98.2 98.2 Pulse 90 90 Resp 18 18 B/P (MAP) 124/92 (103) 124/92 Pulse Ox 95 95 O2 Delivery Room Air Room Air Room Air 05/09/17 05/09/17 05/09/17 08:43 09:41 10:42 Temp 98.0 98.0 Pulse 90 93 Resp 17 18 B/P (MAP) 124/92 143/92 (109) Pulse Ox 95 96 O2 Delivery Room Air Room Air Intake and Output 05/08/17 05/08/17 05/09/17 15:00 23:00 07:00 Intake Total 400 ml 250 ml Output Total 600 ml 0 ml Balance -200 ml 250 ml MEDHAT LARSON III, DO May 09, 2017 11:47
[2017-05-09] MEDS ORDERED: INSULIN ASPART 300 UNITS/3 ML INSULN.PEN SQ ONE ×2 (12:45→15:45)
[2017-05-09 14:41] VITALS: BP 105/59
[2017-05-09] MEDS ORDERED: traZODone 50 MG TABLET. PO SCH (21:00)
== END 2017-05-09 18:07 | disposition home or self-care (01) | DRG 638 ==
LOC: ER 11:56 → ED HOLD 13:40 → 6 SOUTH 17:56
PROVIDERS: ADMIT Internal Medicine; ATTEND Internal Medicine
DX: E11.649 Type 2 diabetes mellitus with hypoglycemia without coma (principal); N39.0 Urinary tract infection, site not specified; I48.91 Unspecified atrial fibrillation; E11.40 Type 2 diabetes mellitus with diabetic neuropathy, unspecified; E86.0 Dehydration; I10 Essential (primary) hypertension; F32.9 Major depressive disorder, single episode, unspecified; E86.1 Hypovolemia; J44.9 Chronic obstructive pulmonary disease, unspecified; E78.5 Hyperlipidemia, unspecified; I25.10 Atherosclerotic heart disease of native coronary artery without angina pectoris; G43.909 Migraine, unspecified, not intractable, without status migrainosus; E78.00 Pure hypercholesterolemia, unspecified; G25.81 Restless legs syndrome; K21.9 Gastro-esophageal reflux disease without esophagitis; Z82.49 Family history of ischemic heart disease and other diseases of the circulatory system; Z88.8 Allergy status to other drugs, medicaments and biological substances; F41.9 Anxiety disorder, unspecified; R00.0 Tachycardia, unspecified
CPT/HCPCS: 36415; 71010; 80048; 80076; 80307; 81001; 81025; 82553; 82962; 83690; 83735; 83880; 84443; 84484; 85025; 85610; 87086; 93005; 96360; 96361; J0696; J1815; J2405; J7030; 99285-25; G0479

== ENCOUNTER 2017-08-30 15:15 | Emergency (ER) | payer MEDICAID ==
[~2017-08-30] VITALS: Ht 160 cm; Wt 88.5 kg
[~2017-08-30 15:15] MED LIST changes: +ACYC800T PO; -DILT180C73 PO; +DILT180C79 PO; +IBUP200T77 PO; +INSU100I27 SQ; +LISI40TA PO; +METO25TA4 PO; +METO50TA6 PO; +TRAM50TA PO; +TRAZ50TA15 PO; +ZOLP12.54 PO
--- NOTE | 2017-08-30 15:45 | PHYS DOC ---
Past Medical History Past Medical History: A-Fib, Asthma, Depression, Diabetes-Type II, High Cholesterol, Hypertension Additional Past Medical Histor: NEUROPATHY Past Surgical History: , Hysterectomy Additional Past Surgical Histo: unknown Alcohol Use: None Drug Use: None Adult General Chief Complaint Chief Complaint: HYPERTENSION HPI HPI Patient is a 42 year old L presents to the emergency department with complaints of hypertension. Patient states earlier today she was mildly nauseated and this prompted her to take her blood pressure. She states her blood pressure was 220/190. Patient reports that she is on atenolol and metoprolol and she has taken both her medicines as prescribed. Patient reports no headache, no blurred vision, no neck pain, no chest pain, no abdominal pain. She does complain of nausea without vomiting. No diarrhea, no fever. Reports that her blood sugar was 500 this morning she took her insulin and check of her blood sugar was 220. Review of Systems Review of Systems Constitutional: Denies fever or chills [] Eyes: Denies change in visual acuity, redness, or eye pain [] HENT: Denies nasal congestion or sore throat [] Respiratory: Denies cough or shortness of breath [] Cardiovascular: Denies chest pain, lower extremity edema GI: Denies abdominal pain, complain of nausea without vomiting : Denies dysuria or hematuria [] Musculoskeletal: Denies back pain or joint pain [] Integument: Denies rash or skin lesions [] Neurologic: Denies headache, focal weakness or sensory changes [] Endocrine: Denies polyuria or polydipsia [] All other systems were reviewed and found to be within normal limits, except as documented in this note. Current Medications Current Medications Current Medications Medications (Trade) Dose Ordered Sig/Mo Start Time Stop Time Status Last Admin Dose Admin Hydralazine HCl (Apresoline Inj) 10 mg 1X ONCE 08/30/17 16:00 08/30/17 16:01 DC 08/30/17 15:44 10 MG Ondansetron HCl (Zofran) 4 mg 1X ONCE 08/30/17 16:00 08/30/17 16:01 DC 08/30/17 15:44 4 MG Sodium Chloride 1,000 ml @ 1,000 mls/hr 1X ONCE 08/30/17 16:00 08/30/17 16:59 08/30/17 15:44 1,000 MLS/HR Allergies Allergies Allergies Coded Allergies Type Severity Reaction Last Updated Verified carbidopa Allergy Intermediate 10/12/16 Yes Physical Exam Physical Exam Constitutional: Well developed, well nourished, no acute distress, non-toxic appearance. [] HENT: Normocephalic, atraumatic, bilateral external ears normal, oropharynx moist, no oral exudates, nose normal. [] Eyes: PERRLA, EOMI, conjunctiva normal Neck: Normal range of motion, no midline or paraspinous tenderness, supple without lymphadenopathy Cardiovascular:Heart rate regular rhythm, no murmur, ne LE edema[] Lungs & Thorax: Bilateral breath sounds clear to auscultation [] Abdomen: Bowel sounds normal, soft, no tenderness, no masses, no pulsatile masses. [] Skin: Warm, dry, no erythema, no rash. [] Back: No tenderness, no CVA tenderness. [] Extremities: No tenderness, no cyanosis, no clubbing, ROM intact, no edema. [] Neurologic: Alert and oriented X 3, normal motor function, normal sensory function, no focal deficits noted. [] Current Patient Data Vital Signs Vital Signs Date Time Temp Pulse Resp B/P (MAP) Pulse Ox O2 Delivery O2 Flow Rate FiO2 08/30/17 16:07 98 20 98 08/30/17 15:44 197/106 08/30/17 15:22 98.2 Room Air 98.2 Lab Values Laboratory Tests Test 08/30/17 15:30 08/30/17 15:38 White Blood Count 10.4 x10^3/uL (4.0-11.0) Red Blood Count 5.19 x10^6/uL (3.50-5.40) Hemoglobin 15.1 g/dL (12.0-15.5) Hematocrit 45.1 % (36.0-47.0) Mean Corpuscular Volume 87 fL (79-100) Mean Corpuscular Hemoglobin 29 pg (25-35) Mean Corpuscular Hemoglobin Concent 33 g/dL (31-37) Red Cell Distribution Width 13.7 % (11.5-14.5) Platelet Count 232 x10^3/uL (140-400) Neutrophils (%) (Auto) 68 % (31-73) Lymphocytes (%) (Auto) 23 % (24-48) L Monocytes (%) (Auto) 6 % (0-9) Eosinophils (%) (Auto) 2 % (0-3) Basophils (%) (Auto) 1 % (0-3) Neutrophils # (Auto) 7.1 x10^3uL (1.8-7.7) Lymphocytes # (Auto) 2.4 x10^3/uL (1.0-4.8) Monocytes # (Auto) 0.7 x10^3/uL (0.0-1.1) Eosinophils # (Auto) 0.2 x10^3/uL (0.0-0.7) Basophils # (Auto) 0.1 x10^3/uL (0.0-0.2) Urine Color Yellow Urine Clarity Clear Urine pH 6.5 Urine Specific [place] 1.015 Urine Protein 30 mg/dL (NEG-TRACE) Urine Glucose (UA) 100 mg/dL (NEG) Urine Ketones (Stick) Negative mg/dL (NEG) Urine Blood Negative (NEG) Urine Nitrite Negative (NEG) Urine Bilirubin Negative (NEG) Urine Urobilinogen Dipstick 0.2 mg/dL (0.2 mg/dL) Urine Leukocyte Esterase Trace (NEG) Urine RBC 0 /HPF (0-2) Urine WBC 1-4 /HPF (0-4) Urine Squamous Epithelial Cells Occ /LPF Urine Bacteria Few /HPF (0-FEW) Urine Mucus Slight /LPF Sodium Level 137 mmol/L (136-145) Potassium Level 3.7 mmol/L (3.5-5.1) Chloride Level 98 mmol/L (98-107) Carbon Dioxide Level 31 mmol/L (21-32) Anion Gap 8 (6-14) Blood Urea Nitrogen 16 mg/dL (7-20) Creatinine 0.6 mg/dL (0.6-1.0) Estimated GFR (Cockcroft-Gault) 108.6 BUN/Creatinine Ratio 27 (6-20) H Glucose Level 217 mg/dL (70-99) H Calcium Level 9.6 mg/dL (8.5-10.1) Total Bilirubin 0.5 mg/dL (0.2-1.0) Aspartate Amino Transferase (AST) 30 U/L (15-37) Alanine Aminotransferase (ALT) 50 U/L (14-59) Alkaline Phosphatase 129 U/L (46-116) H Creatine Kinase 42 U/L (26-192) Creatine Kinase MB (Mass) < 0.5 ng/mL (0.0-3.6) Creatine Kinase MB Relative Index % (0-4) Total Protein 8.2 g/dL (6.4-8.2) Albumin 4.0 g/dL (3.4-5.0) Albumin/Globulin Ratio 1.0 (1.0-1.7) Glucose (Fingerstick) 221 mg/dL (70-99) H Laboratory Tests 08/30/17 15:30 Laboratory Tests 08/30/17 15:30 EKG EKG [] Radiology/Procedures Radiology/Procedures [] Course & Med Decision Making Course & Med Decision Making Pertinent Labs and Imaging studies reviewed. (See chart for details) []Fingerstick Accu-Chek: 221. His EKG reviewed by ED physician, sinus rhythm, no acute abnormalities. Non-STEMI. Patient received hydralazine 10 mg IV, Zofran 4 mg IV. Blood pressure rate due's to 160/76. Patient has no complaints. Plan will be to discharge home follow primary care for further evaluation of her hypertension. Dragon Disclaimer Dragon Disclaimer This electronic medical record was generated, in whole or in part, using a voice recognition dictation system. Departure Departure Impression: Primary Impression: Hypertension Additional Impression: Nausea alone Disposition: 01 HOME, SELF-CARE Condition: STABLE Referrals: YASMIN LEIGH MD (PCP) Patient Instructions: Hypertension, Nausea, Adult Scripts Ondansetron (ZOFRAN ODT) 4 Mg Tab.rapdis 1 TAB SL Q8HRS Y for NAUSEA, #15 TAB Prov: NELLI MILAN APRN 08/30/17 Problem Qualifiers Primary Impression: Hypertension Hypertension type: unspecified Qualified Codes: I10 - Essential (primary) hypertension NELLI MILAN APRN Aug 30, 2017 15:45
--- NOTE | 2017-08-30 15:45 | EKG ---
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
[2017-08-30 15:55] LABS: BASO # 0.1 x10^3/uL (0.0-0.2); BASO % 1 % (0-3); EOS % 2 % (0-3); HEMATOCRIT 45.1 % (36.0-47.0); HEMOGLOBIN 15.1 g/dL (12.0-15.5); LYMPH # 2.4 x10^3/uL (1.0-4.8); LYMPH % 23 % (24-48); MEAN CORPUSCULAR HEMOGLOBIN 29 pg (25-35); MEAN CORPUSCULAR HGB CONC 33 g/dL (31-37); MEAN CORPUSCULAR VOLUME 87 fL (79-100); MONO % 6 % (0-9); NEUT % 68 % (31-73); PLATELET COUNT 232 x10^3/uL (140-400); RED BLOOD COUNT 5.19 x10^6/uL (3.50-5.40); RED CELL DISTRIBUTION WIDTH 13.7 % (11.5-14.5); WHITE BLOOD COUNT 10.4 x10^3/uL (4.0-11.0)
[2017-08-30 15:59] LABS: BILIRUBIN,URINE NEGATIVE (NEG); GLUCOSE,URINE 100 mg/dL (NEG); NITRITE,URINE NEGATIVE (NEG); PH,URINE 6.5; PROTEIN,URINE 30 mg/dL (NEG-TRACE); UROBILINOGEN,URINE 0.2 mg/dL (0.2 mg/dL)
[2017-08-30] MEDS ORDERED: ONDANSETRON PF 4 MG/2 ML VIAL. IV ONE (16:00)
[2017-08-30] MEDS ORDERED: IV NORMAL SALINE 1000ML BAG 1,000 ML IV ONE (16:00)
[2017-08-30] MEDS ORDERED: hydrALAZINE 20 MG/ML VIAL. IVP ONE (16:00)
[2017-08-30 16:02] LABS: CALCIUM 9.6 mg/dL (8.5-10.1); CREATININE 0.6 mg/dL (0.6-1.0); GFR 108.6; POTASSIUM 3.7 mmol/L (3.5-5.1)
[2017-08-30 16:07] VITALS: BP 164/79
[2017-08-30 16:08] LABS: TOTAL BILIRUBIN 0.5 mg/dL (0.2-1.0); TOTAL PROTEIN 8.2 g/dL (6.4-8.2)
[2017-08-30 16:21] LABS: CKMB MASS < 0.5 ng/mL (0.0-3.6); CREATINE KINASE 42 U/L (26-192)
[2017-08-30 16:23] LABS: BACTERIA,URINE FEW /HPF (0-FEW); RBC,URINE 0 /HPF (0-2); SQUAMOUS EPITHELIAL CELL,UR OCC /LPF
[2017-08-30] MEDS ORDERED: ONDA4TAB10 SL (16:29)
== END 2017-08-30 17:00 | disposition home or self-care (01) ==
LOC: ER 15:15
DX: I10 Essential (primary) hypertension (principal); R11.0 Nausea; I48.91 Unspecified atrial fibrillation; J45.909 Unspecified asthma, uncomplicated; F32.9 Major depressive disorder, single episode, unspecified; E11.40 Type 2 diabetes mellitus with diabetic neuropathy, unspecified; E78.00 Pure hypercholesterolemia, unspecified; Z90.710 Acquired absence of both cervix and uterus; Z79.899 Other long term (current) drug therapy; Z88.8 Allergy status to other drugs, medicaments and biological substances
CPT/HCPCS: 36415; 80053; 81001; 82553; 82962; 84484; 85025; 87086; 93005; 96361; 96374; 96375; 99285; J0360; J2405; J7030

== ENCOUNTER → 2018-01-09 | Outpatient (CLI) | payer MEDICAID | END | disposition home or self-care (01) | LOC: KCIC MAMMO 12:22 | DX: Z12.31 Encounter for screening mammogram for malignant neoplasm of breast (principal) | CPT/HCPCS: 77063; 77067 ==

== ENCOUNTER 2018-02-22 12:48 | Inpatient (IN) | payer OTHER, MEDICAID ==
[2018-02-22 13:45] LABS: BILIRUBIN,URINE SMALL (NEG); CLARITY,URINE CLEAR; COLOR,URINE YELLOW; GLUCOSE,URINE >=1000 mg/dL (NEG); NITRITE,URINE NEGATIVE (NEG); PH,URINE 5.5; PROTEIN,URINE 30 mg/dL (NEG-TRACE); UROBILINOGEN,URINE 0.2 mg/dL (0.2 mg/dL)
[2018-02-22 13:50] LABS: ADD MAN DIFF? NO
[2018-02-22 14:07] LABS: BACTERIA,URINE FEW /HPF (0-FEW); HYALINE CASTS, URINE MANY /HPF; RBC,URINE 0 /HPF (0-2); SQUAMOUS EPITHELIAL CELL,UR MANY /LPF; WBC,URINE >40 /HPF (0-4); YEAST,URINE PRESENT /HPF
[2018-02-22 14:10] LABS: ANION GAP 13 (6-14); BLOOD UREA NITROGEN 21 mg/dL (7-20); BUN/CREATININE RATIO 26 (6-20); CALCIUM 9.4 mg/dL (8.5-10.1); CARBON DIOXIDE 26 mmol/L (21-32); CHLORIDE 100 mmol/L (98-107); CREATININE 0.8 mg/dL (0.6-1.0); GFR 77.9; GLUCOSE 404 mg/dL (70-99); POTASSIUM 4.7 mmol/L (3.5-5.1); SODIUM 139 mmol/L (136-145)
[2018-02-22 14:12] LABS: ALBUMIN 3.8 g/dL (3.4-5.0); ALBUMIN/GLOBULIN RATIO 0.9 (1.0-1.7); ALK PHOS 128 U/L (46-116); ALT (SGPT) 30 U/L (14-59); AST (SGOT) 36 U/L (15-37); TOTAL BILIRUBIN 0.6 mg/dL (0.2-1.0); TOTAL PROTEIN 8.2 g/dL (6.4-8.2)
[2018-02-22 14:14] LABS: TROPONINI < 0.017 ng/mL (0.000-0.055)
[2018-02-22 14:16] LABS: BASO % 0 % (0-3); EOS # 0.2 x10^3/uL (0.0-0.7); EOS % 2 % (0-3); HEMATOCRIT 41.5 % (36.0-47.0); HEMOGLOBIN 14.2 g/dL (12.0-15.5); LYMPH # 2.3 x10^3/uL (1.0-4.8); LYMPH % 25 % (24-48); MEAN CORPUSCULAR HEMOGLOBIN 29 pg (25-35); MEAN CORPUSCULAR HGB CONC 34 g/dL (31-37); MEAN CORPUSCULAR VOLUME 84 fL (79-100); MONO # 0.4 x10^3/uL (0.0-1.1); MONO % 5 % (0-9); NEUT # 6.4 x10^3uL (1.8-7.7); NEUT % 68 % (31-73); PLATELET COUNT 265 x10^3/uL (140-400); RED BLOOD COUNT 4.92 x10^6/uL (3.50-5.40); RED CELL DISTRIBUTION WIDTH 14.9 % (11.5-14.5); WHITE BLOOD COUNT 9.3 x10^3/uL (4.0-11.0)
[2018-02-22 14:19] LABS: THYROID STIM HORMONE (TSH) 0.868 uIU/mL (0.358-3.74)
[2018-02-22 14:24] LABS: CKMB INDEX 0.8 % (0-4); CKMB MASS 0.7 ng/mL (0.0-3.6); CREATINE KINASE 91 U/L (26-192)
[2018-02-22] MEDS ORDERED: NON FORMULARY ITEM (Albuterol Sulfate (Albuterol Sulfate Conc Neb Soln) 2.5 MG) NEB (17:30)
[2018-02-22] MEDS ORDERED: ACETAMINOPHEN 325 MG TABLET. PO (17:30)
[2018-02-22] MEDS ORDERED: ONDANSETRON PF 4 MG/2 ML VIAL. IV (17:30)
[2018-02-22] MEDS ORDERED: DEXTROSE 50% 25 GM / 50ML DISP.SYRIN. IV (17:30)
[2018-02-22] MEDS ORDERED: tiZANidine 4 MG TABLET. PO (17:45)
[2018-02-22] MEDS: ONDANSETRON PF 4 MG/2 ML VIAL. IV (19:33)
[2018-02-22] MEDS: fentaNYL PF VIAL 100 MCG/2 ML VIAL IV (19:34)
[2018-02-22] MEDS: BUDESONIDE 0.5 MG/2 ML NEBU. NEB (19:57)
[2018-02-22] MEDS: ALBUTEROL SULFATE 2.5 MG/3 ML NEBU. NEB (19:57)
[2018-02-22 20:07] LABS: POC GLUCOSE 411 mg/dL (70-99)
[2018-02-22] MEDS: INSULIN LISPRO 300 UNITS/3 ML INSULN.PEN. SQ (20:34)
[2018-02-22] MEDS: INSULIN GLARGINE 300 UNITS/3 ML INSULN.PEN. SQ (20:37)
[2018-02-22] MEDS: LACTOBACILLUS RHAMNOSUS GG 1 CAPSULE. PO (20:39)
[2018-02-22] MEDS: GABAPENTIN 400 MG CAPSULE. PO (20:39)
[2018-02-22] MEDS: SIMVASTATIN 40 MG TABLET. PO (20:40)
[2018-02-22] MEDS: traZODone 50 MG TABLET. PO (20:40)
[2018-02-22] MEDS: METOPROLOL TART IMMED RELEASE 25 MG TABLET. PO (20:40)
[2018-02-22] MEDS ORDERED: NON FORMULARY ITEM (Budesonide/Formoterol Fumarate (Symbicort 160-4.5 Mcg Inhaler) 2 PUFF) IH (21:00)
[2018-02-22] MEDS ORDERED: C.DIFF MED SCREEN BY RX. MC (23:45)
[2018-02-23 00:27] LABS: TROPONINI < 0.017 ng/mL (0.000-0.055)
[2018-02-23] MEDS: HYDROcodone/APAP 5/325MG 1 TAB TABLET PO (03:05)
[2018-02-23] MEDS: ONDANSETRON ODT 4 MG TAB.RAPDIS. PO (04:54)
[2018-02-23 05:39] LABS: ADD MAN DIFF? NO
[2018-02-23 05:47] LABS: BASO # 0.1 x10^3/uL (0.0-0.2); BASO % 1 % (0-3); EOS # 0.2 x10^3/uL (0.0-0.7); EOS % 3 % (0-3); HEMATOCRIT 39.8 % (36.0-47.0); HEMOGLOBIN 13.6 g/dL (12.0-15.5); LYMPH # 2.9 x10^3/uL (1.0-4.8); LYMPH % 33 % (24-48); MEAN CORPUSCULAR HEMOGLOBIN 29 pg (25-35); MEAN CORPUSCULAR HGB CONC 34 g/dL (31-37); MEAN CORPUSCULAR VOLUME 86 fL (79-100); MONO # 0.5 x10^3/uL (0.0-1.1); MONO % 6 % (0-9); NEUT % 57 % (31-73); PLATELET COUNT 237 x10^3/uL (140-400); RED BLOOD COUNT 4.66 x10^6/uL (3.50-5.40); RED CELL DISTRIBUTION WIDTH 15.2 % (11.5-14.5); WHITE BLOOD COUNT 8.8 x10^3/uL (4.0-11.0)
[2018-02-23] MEDS ORDERED: INSULIN GLARGINE 300 UNITS/3 ML INSULN.PEN. SQ (06:00)
[2018-02-23 06:05] LABS: ALBUMIN 3.3 g/dL (3.4-5.0); ALBUMIN/GLOBULIN RATIO 0.8 (1.0-1.7); ALK PHOS 115 U/L (46-116); ALT (SGPT) 27 U/L (14-59); ANION GAP 11 (6-14); AST (SGOT) 19 U/L (15-37); BLOOD UREA NITROGEN 17 mg/dL (7-20); BUN/CREATININE RATIO 24 (6-20); CALCIUM 8.9 mg/dL (8.5-10.1); CARBON DIOXIDE 27 mmol/L (21-32); CHLORIDE 102 mmol/L (98-107); CREATININE 0.7 mg/dL (0.6-1.0); GFR 90.9; GLUCOSE 356 mg/dL (70-99); POTASSIUM 3.5 mmol/L (3.5-5.1); SODIUM 140 mmol/L (136-145); TOTAL BILIRUBIN 0.3 mg/dL (0.2-1.0); TOTAL PROTEIN 7.3 g/dL (6.4-8.2)
[2018-02-23] MEDS: PANTOPRAZOLE 40 MG TABLET.DR. PO (06:26)
[2018-02-23] MEDS: INSULIN GLARGINE 300 UNITS/3 ML INSULN.PEN. SQ ×2 (06:29→21:38)
[2018-02-23 06:30] LABS: POC GLUCOSE 402 mg/dL (70-99)
[2018-02-23 06:30] LABS: POC GLUCOSE 411 mg/dL (70-99)
[2018-02-23] MEDS: BUDESONIDE 0.5 MG/2 ML NEBU. NEB ×2 (07:32→20:02)
[2018-02-23] MEDS: ALBUTEROL SULFATE 2.5 MG/3 ML NEBU. NEB ×4 (07:32→20:02)
[2018-02-23] MEDS: INSULIN LISPRO 300 UNITS/3 ML INSULN.PEN. SQ ×6 (07:59→17:05)
[2018-02-23 08:22] LABS: HEMOGLOBIN A1C 13.2 % (4.8-5.6)
[2018-02-23 08:24] LABS: POC GLUCOSE 397 mg/dL (70-99)
[2018-02-23] MEDS: LACTOBACILLUS RHAMNOSUS GG 1 CAPSULE. PO ×2 (08:32→21:27)
[2018-02-23] MEDS: METOPROLOL TART IMMED RELEASE 25 MG TABLET. PO ×2 (08:32→21:33)
[2018-02-23] MEDS: CETIRIZINE HCL 10 MG TABLET. PO (08:32)
[2018-02-23] MEDS: CITALOPRAM 10 MG TABLET. PO (08:32)
[2018-02-23] MEDS: diazePAM 5 MG TABLET PO (08:32)
[2018-02-23] MEDS: GABAPENTIN 400 MG CAPSULE. PO ×3 (08:32→21:30)
[2018-02-23] MEDS: ASPIRIN ENTERIC COATED 81 MG TABLET.DR. PO (08:33)
[2018-02-23] MEDS: FERROUS SULFATE 325 MG TABLET. PO (08:33)
[2018-02-23] MEDS ORDERED: NON FORMULARY ITEM (Liraglutide (Victoza 3-Pak) 1.8 MG) SQ (09:00)
[2018-02-23] MEDS: ENOXAPARIN 40 MG/0.4 ML SYRINGE. SQ (13:27)
[2018-02-23] MEDS: cefTRIAXone IV Push 1 GM VIAL. IVP (15:48)
[2018-02-23] MEDS: ONDANSETRON PF 4 MG/2 ML VIAL. IV (15:56)
[2018-02-23] MEDS: fentaNYL PF VIAL 100 MCG/2 ML VIAL IV ×2 (15:59→19:37)
[2018-02-23 16:30] LABS: POC GLUCOSE 184 mg/dL (70-99)
[2018-02-23 20:09] LABS: MRSA BY PCR Negative (Negative)
[2018-02-23 20:09] LABS: C DIFF BY PCR Negative (Negative)
[2018-02-23 20:57] LABS: POC GLUCOSE 209 mg/dL (70-99)
[2018-02-23] MEDS: traZODone 50 MG TABLET. PO (21:30)
[2018-02-23] MEDS: SIMVASTATIN 40 MG TABLET. PO (21:30)
[2018-02-24 01:30] LABS: POC GLUCOSE 283 mg/dL (70-99)
[2018-02-24 02:31] LABS: POC GLUCOSE 313 mg/dL (70-99)
[2018-02-24 05:51] LABS: CHOLESTEROL 227 mg/dL (0-200); HDLC 28 mg/dL (40-60); TRIGLYCERIDES 682 mg/dL (0-150)
[2018-02-24 05:52] LABS: CHOLESTEROL/HDL RATIO 8.1
[2018-02-24] MEDS: INSULIN GLARGINE 300 UNITS/3 ML INSULN.PEN. SQ ×2 (06:12→21:45)
[2018-02-24 06:16] LABS: POC GLUCOSE 224 mg/dL (70-99)
[2018-02-24] MEDS: INSULIN LISPRO 300 UNITS/3 ML INSULN.PEN. SQ ×6 (07:50→17:08)
[2018-02-24] MEDS: ALBUTEROL SULFATE 2.5 MG/3 ML NEBU. NEB ×2 (07:56→11:35)
[2018-02-24] MEDS: BUDESONIDE 0.5 MG/2 ML NEBU. NEB ×2 (07:56→19:29)
[2018-02-24] MEDS: LACTOBACILLUS RHAMNOSUS GG 1 CAPSULE. PO ×2 (08:29→20:20)
[2018-02-24] MEDS: FERROUS SULFATE 325 MG TABLET. PO (08:29)
[2018-02-24] MEDS: CITALOPRAM 10 MG TABLET. PO (08:29)
[2018-02-24] MEDS: GABAPENTIN 400 MG CAPSULE. PO ×3 (08:29→20:20)
[2018-02-24] MEDS: CETIRIZINE HCL 10 MG TABLET. PO (08:29)
[2018-02-24] MEDS: METOPROLOL TART IMMED RELEASE 25 MG TABLET. PO ×2 (08:29→20:20)
[2018-02-24] MEDS: diazePAM 5 MG TABLET PO (08:30)
[2018-02-24] MEDS: ASPIRIN ENTERIC COATED 81 MG TABLET.DR. PO (08:30)
[2018-02-24] MEDS: FAMOTIDINE 20 MG TABLET. PO ×2 (08:33→20:20)
[2018-02-24] MEDS ORDERED: DOCUSATE SODIUM 100 MG CAPSULE. PO (10:00)
[2018-02-24] MEDS ORDERED: hydrALAZINE 20 MG/ML VIAL. IVP (10:00)
[2018-02-24] MEDS ORDERED: ACETAMINOPHEN 325 MG TABLET. PO (10:00)
[2018-02-24] MEDS ORDERED: HYDROcodone/APAP 5/325MG 1 TAB TABLET PO (10:00)
[2018-02-24] MEDS ORDERED: MORPHINE SULFATE 2 MG/ML DISP.SYRIN. IV (10:00)
[2018-02-24] MEDS ORDERED: traMADol 50 MG TABLET PO (10:00)
[2018-02-24] MEDS ORDERED: ONDANSETRON PF 4 MG/2 ML VIAL. IV (10:00)
[2018-02-24] MEDS: ONDANSETRON PF 4 MG/2 ML VIAL. IV (10:11)
[2018-02-24] MEDS: IV NORMAL SALINE 1000ML BAG 1,000 ML IV (10:14)
[2018-02-24] MEDS: oxyCODONE/APAP 5/325 1 TAB TABLET PO ×2 (10:14→20:20)
[2018-02-24] MEDS: BENZONATATE 100 MG CAPSULE. PO ×3 (12:00→20:20)
[2018-02-24] MEDS: IPRATRPIUM/ALBUTEROL 0.5/2.5MG 3 ML NEBU. NEB ×3 (12:00→19:29)
[2018-02-24] MEDS: ENOXAPARIN 40 MG/0.4 ML SYRINGE. SQ (13:32)
[2018-02-24] MEDS: cefTRIAXone IV Push 1 GM VIAL. IVP (15:25)
[2018-02-24 17:06] LABS: POC GLUCOSE 191 mg/dL (70-99)
[2018-02-24] MEDS: traZODone 50 MG TABLET. PO (20:19)
[2018-02-24] MEDS: SIMVASTATIN 40 MG TABLET. PO (20:21)
[2018-02-24 20:56] LABS: POC GLUCOSE 158 mg/dL (70-99)
[2018-02-24] MEDS: ZOLPIDEM 5 MG TABLET. PO (23:05)
[2018-02-25 01:44] LABS: POC GLUCOSE 221 mg/dL (70-99)
[2018-02-25 01:44] LABS: POC GLUCOSE 183 mg/dL (70-99)
[2018-02-25 05:04] LABS: ADD MAN DIFF? NO
[2018-02-25 05:12] LABS: BASO # 0.1 x10^3/uL (0.0-0.2); BASO % 1 % (0-3); EOS # 0.3 x10^3/uL (0.0-0.7); EOS % 3 % (0-3); HEMATOCRIT 38.1 % (36.0-47.0); HEMOGLOBIN 12.9 g/dL (12.0-15.5); LYMPH # 2.9 x10^3/uL (1.0-4.8); LYMPH % 35 % (24-48); MEAN CORPUSCULAR HEMOGLOBIN 29 pg (25-35); MEAN CORPUSCULAR HGB CONC 34 g/dL (31-37); MEAN CORPUSCULAR VOLUME 86 fL (79-100); MONO # 0.5 x10^3/uL (0.0-1.1); MONO % 6 % (0-9); NEUT # 4.5 x10^3uL (1.8-7.7); NEUT % 55 % (31-73); PLATELET COUNT 211 x10^3/uL (140-400); RED BLOOD COUNT 4.46 x10^6/uL (3.50-5.40); RED CELL DISTRIBUTION WIDTH 14.7 % (11.5-14.5); WHITE BLOOD COUNT 8.3 x10^3/uL (4.0-11.0)
[2018-02-25 05:32] LABS: ANION GAP 10 (6-14); BLOOD UREA NITROGEN 11 mg/dL (7-20); CARBON DIOXIDE 26 mmol/L (21-32); CHLORIDE 110 mmol/L (98-107); CREATININE 0.7 mg/dL (0.6-1.0); GFR 90.9; GLUCOSE 120 mg/dL (70-99); POTASSIUM 3.4 mmol/L (3.5-5.1); SODIUM 146 mmol/L (136-145)
[2018-02-25 05:37] LABS: POC GLUCOSE 108 mg/dL (70-99)
[2018-02-25] MEDS: INSULIN GLARGINE 300 UNITS/3 ML INSULN.PEN. SQ ×2 (05:39→20:44)
[2018-02-25 05:42] LABS: INR 0.9 (0.8-1.1); PROTHROMBIN TIME PATIENT 11.3 SEC (11.7-14.0)
[2018-02-25 07:28] LABS: POC GLUCOSE 90 mg/dL (70-99)
[2018-02-25] MEDS: IPRATRPIUM/ALBUTEROL 0.5/2.5MG 3 ML NEBU. NEB ×4 (07:41→19:52)
[2018-02-25] MEDS: BUDESONIDE 0.5 MG/2 ML NEBU. NEB ×2 (07:41→19:52)
[2018-02-25] MEDS: INSULIN LISPRO 300 UNITS/3 ML INSULN.PEN. SQ ×6 (08:00→17:18)
[2018-02-25] MEDS: GABAPENTIN 400 MG CAPSULE. PO ×3 (08:41→20:36)
[2018-02-25] MEDS: FERROUS SULFATE 325 MG TABLET. PO (08:42)
[2018-02-25] MEDS: ASPIRIN ENTERIC COATED 81 MG TABLET.DR. PO (08:42)
[2018-02-25] MEDS: CETIRIZINE HCL 10 MG TABLET. PO (08:42)
[2018-02-25] MEDS: METOPROLOL TART IMMED RELEASE 25 MG TABLET. PO ×2 (08:42→20:37)
[2018-02-25] MEDS: LACTOBACILLUS RHAMNOSUS GG 1 CAPSULE. PO ×2 (08:42→20:36)
[2018-02-25] MEDS: diazePAM 5 MG TABLET PO (08:42)
[2018-02-25] MEDS: oxyCODONE/APAP 5/325 1 TAB TABLET PO ×3 (08:42→18:59)
[2018-02-25] MEDS: FAMOTIDINE 20 MG TABLET. PO ×2 (08:42→20:36)
[2018-02-25] MEDS: CITALOPRAM 10 MG TABLET. PO (08:42)
[2018-02-25] MEDS: BENZONATATE 100 MG CAPSULE. PO ×3 (08:42→20:36)
[2018-02-25 11:18] LABS: POC GLUCOSE 102 mg/dL (70-99)
[2018-02-25] MEDS: ONDANSETRON PF 4 MG/2 ML VIAL. IV (13:59)
[2018-02-25] MEDS: ENOXAPARIN 40 MG/0.4 ML SYRINGE. SQ (14:02)
[2018-02-25] MEDS: cefTRIAXone IV Push 1 GM VIAL. IVP (16:02)
[2018-02-25 16:18] LABS: POC GLUCOSE 189 mg/dL (70-99)
[2018-02-25 16:27] LABS: BASE EXCESS ABG -2 mmol/L (-3-3); HCO3 ABG 24 mmol/L (21-28); PCO2 ABG 45 mmHg (35-46); PH ABG 7.35 (7.35-7.45); PO2 ABG 84 mmHg (75-108); SAT O2 ABG 96 % (92-99)
[2018-02-25 16:29] LABS: FIO2 ABG 21
[2018-02-25] MEDS: POTASSIUM CHLORIDE 20 MEQ TABLET.ER. PO (17:15)
[2018-02-25] MEDS: traZODone 50 MG TABLET. PO (20:36)
[2018-02-25] MEDS: SIMVASTATIN 40 MG TABLET. PO (20:36)
[2018-02-25 20:40] LABS: POC GLUCOSE 225 mg/dL (70-99)
[2018-02-25] MEDS: ZOLPIDEM 5 MG TABLET. PO (22:33)
[2018-02-26] MEDS: oxyCODONE/APAP 5/325 1 TAB TABLET PO ×4 (05:37→19:11)
[2018-02-26] MEDS: INSULIN GLARGINE 300 UNITS/3 ML INSULN.PEN. SQ ×2 (05:40→21:05)
[2018-02-26 06:13] LABS: POC GLUCOSE 185 mg/dL (70-99)
[2018-02-26 07:09] LABS: SEDIMENTATION RATE 27 (0-25)
[2018-02-26] MEDS: IPRATRPIUM/ALBUTEROL 0.5/2.5MG 3 ML NEBU. NEB ×4 (07:53→19:29)
[2018-02-26] MEDS: BUDESONIDE 0.5 MG/2 ML NEBU. NEB ×2 (07:53→19:29)
[2018-02-26] MEDS: INSULIN LISPRO 300 UNITS/3 ML INSULN.PEN. SQ ×6 (07:58→17:03)
[2018-02-26 08:03] LABS: POC GLUCOSE 155 mg/dL (70-99)
[2018-02-26] MEDS: diazePAM 5 MG TABLET PO (08:53)
[2018-02-26] MEDS: ASPIRIN ENTERIC COATED 81 MG TABLET.DR. PO (08:53)
[2018-02-26] MEDS: LACTOBACILLUS RHAMNOSUS GG 1 CAPSULE. PO ×2 (08:53→20:56)
[2018-02-26] MEDS: GABAPENTIN 400 MG CAPSULE. PO ×3 (08:53→20:57)
[2018-02-26] MEDS: FAMOTIDINE 20 MG TABLET. PO ×2 (08:54→20:56)
[2018-02-26] MEDS: CETIRIZINE HCL 10 MG TABLET. PO (08:54)
[2018-02-26] MEDS: BENZONATATE 100 MG CAPSULE. PO ×3 (08:54→20:56)
[2018-02-26] MEDS: METOPROLOL TART IMMED RELEASE 25 MG TABLET. PO ×2 (08:54→20:58)
[2018-02-26] MEDS: FERROUS SULFATE 325 MG TABLET. PO (08:54)
[2018-02-26] MEDS: CEFPODOXIME PROXETIL 100 MG TABLET. PO ×2 (08:54→20:57)
[2018-02-26] MEDS: CITALOPRAM 10 MG TABLET. PO (09:43)
[2018-02-26 11:34] LABS: POC GLUCOSE 96 mg/dL (70-99)
[2018-02-26 11:58] LABS: VITAMIN-B12 410 pg/mL (247-911)
[2018-02-26 11:58] LABS: FOLATE 10.76 ng/ml (3.2-20.0)
[2018-02-26] MEDS: ENOXAPARIN 40 MG/0.4 ML SYRINGE. SQ (13:59)
[2018-02-26 16:33] LABS: POC GLUCOSE 131 mg/dL (70-99)
[2018-02-26] MEDS: traZODone 50 MG TABLET. PO (20:56)
[2018-02-26] MEDS: SIMVASTATIN 40 MG TABLET. PO (20:57)
[2018-02-26 21:25] LABS: POC GLUCOSE 141 mg/dL (70-99)
[2018-02-26 21:25] LABS: POC GLUCOSE 143 mg/dL (70-99)
[2018-02-26] MEDS: ZOLPIDEM 5 MG TABLET. PO (23:04)
[2018-02-26] MEDS: traMADol 50 MG TABLET PO (23:08)
[2018-02-27 02:51] LABS: POC GLUCOSE 124 mg/dL (70-99)
[2018-02-27] MEDS: INSULIN GLARGINE 300 UNITS/3 ML INSULN.PEN. SQ (06:08)
[2018-02-27 06:10] LABS: POC GLUCOSE 87 mg/dL (70-99)
[2018-02-27] MEDS: oxyCODONE/APAP 5/325 1 TAB TABLET PO ×2 (06:12→10:40)
[2018-02-27] MEDS: ONDANSETRON PF 4 MG/2 ML VIAL. IV (07:02)
[2018-02-27 07:09] LABS: POC GLUCOSE 83 mg/dL (70-99)
[2018-02-27] MEDS: IPRATRPIUM/ALBUTEROL 0.5/2.5MG 3 ML NEBU. NEB ×2 (07:27→11:09)
[2018-02-27] MEDS: BUDESONIDE 0.5 MG/2 ML NEBU. NEB (07:28)
[2018-02-27] MEDS: INSULIN LISPRO 300 UNITS/3 ML INSULN.PEN. SQ ×4 (08:00→12:00)
[2018-02-27] MEDS: CEFPODOXIME PROXETIL 100 MG TABLET. PO (08:46)
[2018-02-27] MEDS: diazePAM 5 MG TABLET PO (08:46)
[2018-02-27] MEDS: GABAPENTIN 400 MG CAPSULE. PO (08:46)
[2018-02-27] MEDS: LACTOBACILLUS RHAMNOSUS GG 1 CAPSULE. PO (08:49)
[2018-02-27] MEDS: traMADol 50 MG TABLET PO (08:49)
[2018-02-27] MEDS: BENZONATATE 100 MG CAPSULE. PO (08:49)
[2018-02-27] MEDS: CETIRIZINE HCL 10 MG TABLET. PO (08:49)
[2018-02-27] MEDS: FERROUS SULFATE 325 MG TABLET. PO (08:49)
[2018-02-27] MEDS: CITALOPRAM 10 MG TABLET. PO (08:49)
[2018-02-27] MEDS: FAMOTIDINE 20 MG TABLET. PO (08:49)
[2018-02-27] MEDS: METOPROLOL TART IMMED RELEASE 25 MG TABLET. PO (08:50)
[2018-02-27] MEDS: ASPIRIN ENTERIC COATED 81 MG TABLET.DR. PO (08:50)
[2018-02-27 11:53] LABS: POC GLUCOSE 121 mg/dL (70-99)
[2018-02-27] MEDS: BUTALB/APAP/CAFEIN 50/325/40MG TABLET. PO (12:27)
[2018-02-27] MEDS ORDERED: METOPROLOL TART IMMED RELEASE 25 MG TABLET. PO (21:00)
[2018-02-28 18:14] LABS: ANA INTERP Negative (.)
[2018-03-01 06:20] LABS: ALBUM 2.9 g/dL (2.9-4.4); ALPHA 1 0.2 g/dL (0.0-0.4); ALPHA 2 0.9 g/dL (0.4-1.0); BETA 1.1 g/dL (0.7-1.3); GAMMA 0.8 g/dL (0.4-1.8); M-SPIKE Not Observed g/dL (Not Observed); PROTEIN TOTAL 5.9 g/dL (6.0-8.5)
== END 2018-02-27 15:00 | disposition home health service (06) | DRG 689 ==
LOC: 5 NORTH 19:00 → ER 12:48 → 5 NORTH 17:08
DX: N39.0 Urinary tract infection, site not specified (principal); E11.00 Type 2 diabetes mellitus with hyperosmolarity without nonketotic hyperglycemic-hyperosmolar coma (NKHHC); E11.43 Type 2 diabetes mellitus with diabetic autonomic (poly)neuropathy; E11.65 Type 2 diabetes mellitus with hyperglycemia; I95.1 Orthostatic hypotension; E11.51 Type 2 diabetes mellitus with diabetic peripheral angiopathy without gangrene; E66.9 Obesity, unspecified; E78.5 Hyperlipidemia, unspecified; F32.9 Major depressive disorder, single episode, unspecified; G89.29 Other chronic pain; I25.10 Atherosclerotic heart disease of native coronary artery without angina pectoris; I48.0 Paroxysmal atrial fibrillation; I51.7 Cardiomegaly; J44.9 Chronic obstructive pulmonary disease, unspecified; K21.9 Gastro-esophageal reflux disease without esophagitis; M25.78 Osteophyte, vertebrae; M46.90 Unspecified inflammatory spondylopathy, site unspecified; M47.812 Spondylosis without myelopathy or radiculopathy, cervical region; F41.9 Anxiety disorder, unspecified; M48.02 Spinal stenosis, cervical region; G43.909 Migraine, unspecified, not intractable, without status migrainosus; Z68.36 Body mass index [BMI] 36.0-36.9, adult; Z79.01 Long term (current) use of anticoagulants; Z79.4 Long term (current) use of insulin; Z82.49 Family history of ischemic heart disease and other diseases of the circulatory system; Z90.710 Acquired absence of both cervix and uterus; Z98.891 History of uterine scar from previous surgery; Z83.3 Family history of diabetes mellitus
CPT/HCPCS: 36415; 36600; 70450; 70551; 71045; 72125; 72141; 80048; 80053; 80061; 81001; 82553; 82607; 82746; 82805; 82962; 83036; 83735; 84165; 84443; 84484; 85025; 85610; 85651; 86038; 87086; 87186; 87324; 87641; 93005; 93880; 94640; 94760; 96365; 97161-GP; 97164-GP; 97165-GO; 97530-GO; 97535-GO; 99285; 99285-25; J0690; J0696; J1650; J1815; J2405; J3010; J7030; J7613; J7620; J7626; Q0162

== ENCOUNTER 2018-03-02 11:29 | Emergency (ER) | payer OTHER, MEDICAID ==
[2018-03-02] MEDS: METOCLOPRAMIDE HCL 10 MG/2 ML VIAL. IV (12:01)
[2018-03-02] MEDS: diphenhydrAMINE 50 MG/ML VIAL IVP (12:02)
[2018-03-02] MEDS: fentaNYL PF VIAL 100 MCG/2 ML VIAL IV (12:02)
[2018-03-02] MEDS: LABETALOL 20 MG/4 ML DISP.SYRIN. IVP (12:03)
[2018-03-02 12:13] LABS: ADD MAN DIFF? NO
[2018-03-02 12:17] LABS: BASO # 0.1 x10^3/uL (0.0-0.2); BASO % 1 % (0-3); EOS # 0.2 x10^3/uL (0.0-0.7); EOS % 2 % (0-3); HEMATOCRIT 38.4 % (36.0-47.0); HEMOGLOBIN 12.8 g/dL (12.0-15.5); LYMPH # 1.7 x10^3/uL (1.0-4.8); LYMPH % 22 % (24-48); MEAN CORPUSCULAR HEMOGLOBIN 29 pg (25-35); MEAN CORPUSCULAR HGB CONC 33 g/dL (31-37); MEAN CORPUSCULAR VOLUME 86 fL (79-100); MONO # 0.6 x10^3/uL (0.0-1.1); MONO % 7 % (0-9); NEUT # 5.5 x10^3uL (1.8-7.7); NEUT % 69 % (31-73); PLATELET COUNT 233 x10^3/uL (140-400); RED BLOOD COUNT 4.48 x10^6/uL (3.50-5.40)
[2018-03-02 12:33] LABS: ANION GAP 8 (6-14); BLOOD UREA NITROGEN 13 mg/dL (7-20); BUN/CREATININE RATIO 19 (6-20); CALCIUM 8.9 mg/dL (8.5-10.1); CARBON DIOXIDE 32 mmol/L (21-32); CHLORIDE 101 mmol/L (98-107); CREATININE 0.7 mg/dL (0.6-1.0); GFR 90.9; GLUCOSE 325 mg/dL (70-99); POTASSIUM 4.2 mmol/L (3.5-5.1); SODIUM 141 mmol/L (136-145)
[2018-03-02 12:36] LABS: TROPONINI < 0.017 ng/mL (0.000-0.055)
[2018-03-02 12:40] LABS: ALBUMIN 3.5 g/dL (3.4-5.0); ALK PHOS 112 U/L (46-116); ALT (SGPT) 32 U/L (14-59); AST (SGOT) 21 U/L (15-37); TOTAL BILIRUBIN 0.4 mg/dL (0.2-1.0); TOTAL PROTEIN 6.9 g/dL (6.4-8.2)
[2018-03-02 14:07] LABS: BILIRUBIN,URINE NEGATIVE (NEG); CLARITY,URINE CLEAR; COLOR,URINE YELLOW; GLUCOSE,URINE >=1000 mg/dL (NEG); NITRITE,URINE NEGATIVE (NEG); PH,URINE 7.5; PROTEIN,URINE NEGATIVE (NEG-TRACE); UROBILINOGEN,URINE 0.2 mg/dL (0.2 mg/dL)
[2018-03-02 14:17] LABS: BACTERIA,URINE 0 /HPF (0-FEW); SQUAMOUS EPITHELIAL CELL,UR FEW /LPF; WBC,URINE RARE /HPF (0-4)
== END 2018-03-02 14:44 | disposition home or self-care (01) ==
LOC: ER 11:29
DX: R51 Headache (principal); I48.91 Unspecified atrial fibrillation; J45.909 Unspecified asthma, uncomplicated; E11.40 Type 2 diabetes mellitus with diabetic neuropathy, unspecified; E78.00 Pure hypercholesterolemia, unspecified; I10 Essential (primary) hypertension; Z88.8 Allergy status to other drugs, medicaments and biological substances
CPT/HCPCS: 36415; 70450; 71045; 80053; 81001; 84484; 85025; 93005; 96374; 96375; 99285-25; J1200; J2765; J3010; J3490

== ENCOUNTER → 2018-04-23 | Outpatient (CLI) | payer MEDICARE, MEDICAID | END | disposition home or self-care (01) | LOC: SLPLAB 18:29 | DX: G47.33 Obstructive sleep apnea (adult) (pediatric) (principal); I11.0 Hypertensive heart disease with heart failure; I50.9 Heart failure, unspecified; E11.9 Type 2 diabetes mellitus without complications; E78.5 Hyperlipidemia, unspecified; J44.9 Chronic obstructive pulmonary disease, unspecified | CPT/HCPCS: 95810 ==

== ENCOUNTER 2018-04-27 14:43 | Emergency (ER) | payer MEDICARE, MEDICAID ==
[~2018-04-27] VITALS: Ht 160 cm; Wt 93.4 kg
[~2018-04-27 14:43] MED LIST changes: +CEFP100T PO; +INSU100I13 SQ; +LISI-130 PO; -LISI40TA PO; +ONDA4TAB10 SL; +TRAZ-85 PO; -TRAZ50TA15 PO
--- NOTE | 2018-04-27 15:13 | PHYS DOC ---
Past Medical History Past Medical History: A-Fib, Asthma, Depression, Diabetes-Type II, High Cholesterol, Hypertension Additional Past Medical Histor: NEUROPATHY Past Surgical History: , Hysterectomy Additional Past Surgical Histo: unknown Alcohol Use: None Drug Use: None Adult General Chief Complaint Chief Complaint: BLOOD SUGAR PROBLEM HPI HPI Patient is a 43 year old female with history of hypertension, high cholesterol , diabetes type 2, A. fib, asthma, who presents today complaining of hyperglycemia. Patient states her blood glucose this morning was 481. She states she used her NovoLog. Patient decided to come to the ED to be evaluated. Denies any nausea vomiting. PCP Dr. Huynh Review of Systems Review of Systems Constitutional: Denies fever or chills [] Eyes: Denies change in visual acuity, redness, or eye pain [] HENT: Denies nasal congestion or sore throat [] Respiratory: Denies cough or shortness of breath [] Cardiovascular: No additional information not addressed in HPI [] GI: Denies abdominal pain, nausea, vomiting, bloody stools or diarrhea [] : Denies dysuria or hematuria [] Musculoskeletal: Denies back pain or joint pain [] Integument: Denies rash or skin lesions [] Neurologic: Denies headache, focal weakness or sensory changes [] Endocrine: Reports hyperglycemia All other systems were reviewed and found to be within normal limits, except as documented in this note. Current Medications Current Medications Current Medications Medications (Trade) Dose Ordered Sig/Mo Start Time Stop Time Status Last Admin Dose Admin Insulin Human Regular (HumuLIN R VIAL) 10 unit 1X ONCE 04/27/18 16:00 04/27/18 16:01 DC 04/27/18 17:28 10 UNIT Morphine Sulfate (Morphine Sulfate) 5 mg 1X ONCE 04/27/18 18:15 04/27/18 18:16 Sodium Chloride 1,000 ml @ 1,000 mls/hr 1X ONCE 04/27/18 16:00 04/27/18 16:59 DC 04/27/18 17:27 1,000 MLS/HR Allergies Allergies Allergies Coded Allergies Type Severity Reaction Last Updated Verified carbidopa Allergy Intermediate 10/12/16 Yes Physical Exam Physical Exam Constitutional: Obese patient. Well developed, well nourished, no acute distress , non-toxic appearance. [] HENT: Normocephalic, atraumatic, bilateral external ears normal, oropharynx moist, no oral exudates, nose normal. [] Eyes: PERRLA, EOMI, conjunctiva normal, no discharge. [] Neck: Normal range of motion, no tenderness, supple, no stridor. [] Cardiovascular:Heart rate regular rhythm, no murmur [] Lungs & Thorax: Bilateral breath sounds clear to auscultation [] Abdomen: Bowel sounds normal, soft, no tenderness, no masses, no pulsatile masses. [] Skin: Warm, dry, no erythema, no rash. [] Back: No tenderness, no CVA tenderness. [] Extremities: No tenderness, no cyanosis, no clubbing, ROM intact, no edema. [] Neurologic: Alert and oriented X 3, normal motor function, normal sensory function, no focal deficits noted. Cranial nerves II through XII intact Psychologic: Affect normal, judgement normal, mood normal. [] Current Patient Data Vital Signs Vital Signs Date Time Temp Pulse Resp B/P (MAP) Pulse Ox O2 Delivery O2 Flow Rate FiO2 04/27/18 15:00 98.5 84 18 181/86 (117) 97 Room Air 98.5 Lab Values Laboratory Tests Test 04/27/18 14:51 04/27/18 15:00 04/27/18 15:02 04/27/18 17:23 Glucose (Fingerstick) 499 mg/dL (70-99) H 433 mg/dL (70-99) H White Blood Count 11.1 x10^3/uL (4.0-11.0) H Red Blood Count 5.07 x10^6/uL (3.50-5.40) Hemoglobin 14.2 g/dL (12.0-15.5) Hematocrit 42.0 % (36.0-47.0) Mean Corpuscular Volume 83 fL (79-100) Mean Corpuscular Hemoglobin 28 pg (25-35) Mean Corpuscular Hemoglobin Concent 34 g/dL (31-37) Red Cell Distribution Width 14.9 % (11.5-14.5) H Platelet Count 264 x10^3/uL (140-400) Neutrophils (%) (Auto) 72 % (31-73) Lymphocytes (%) (Auto) 21 % (24-48) L Monocytes (%) (Auto) 5 % (0-9) Eosinophils (%) (Auto) 2 % (0-3) Basophils (%) (Auto) 1 % (0-3) Neutrophils # (Auto) 8.0 x10^3uL (1.8-7.7) H Lymphocytes # (Auto) 2.3 x10^3/uL (1.0-4.8) Monocytes # (Auto) 0.5 x10^3/uL (0.0-1.1) Eosinophils # (Auto) 0.2 x10^3/uL (0.0-0.7) Basophils # (Auto) 0.1 x10^3/uL (0.0-0.2) Sodium Level 136 mmol/L (136-145) Potassium Level 4.4 mmol/L (3.5-5.1) Chloride Level 99 mmol/L (98-107) Carbon Dioxide Level 26 mmol/L (21-32) Anion Gap 11 (6-14) Blood Urea Nitrogen 23 mg/dL (7-20) H Creatinine 0.8 mg/dL (0.6-1.0) Estimated GFR (Cockcroft-Gault) 77.6 Glucose Level 514 mg/dL (70-99) *H Calcium Level 9.4 mg/dL (8.5-10.1) Urine Collection Type Unknown Urine Color Yellow Urine Clarity Clear Urine pH 5.5 Urine Specific [place] >=1.030 Urine Protein Negative mg/dL (NEG-TRACE) Urine Glucose (UA) >=1000 mg/dL (NEG) Urine Ketones (Stick) Trace mg/dL (NEG) Urine Blood Trace (NEG) Urine Nitrite Negative (NEG) Urine Bilirubin Negative (NEG) Urine Urobilinogen Dipstick 0.2 mg/dL (0.2 mg/dL) Urine Leukocyte Esterase Negative (NEG) Urine RBC Occ /HPF (0-2) Urine WBC Occ /HPF (0-4) Urine Squamous Epithelial Cells Mod /LPF Urine Bacteria Few /HPF (0-FEW) Test 04/27/18 18:08 Glucose (Fingerstick) 292 mg/dL (70-99) H Laboratory Tests 04/27/18 15:00 Laboratory Tests 04/27/18 15:00 EKG EKG [] Radiology/Procedures Radiology/Procedures [] Course & Med Decision Making Course & Med Decision Making Pertinent Labs and Imaging studies reviewed. (See chart for details) This is a 43-year-old female patient presenting to the ED today with hyperglycemia, blood glucose was 481 this morning. Patient has history of diabetes. She is on NovoLog with meals and Lantus at night. BMP with glucose was 514, anion gap is normal, creatinine is normal. Patient was given 2 L of IV fluids. Also given insulin. Glucose will be rechecked. Blood glucose 292, d/c to home Dragon Disclaimer Dragon Disclaimer This electronic medical record was generated, in whole or in part, using a voice recognition dictation system. Departure Departure Impression: Primary Impression: Hyperglycemia Disposition: HOME, SELF-CARE Condition: STABLE Referrals: YASMIN HUYNH MD (PCP) Patient Instructions: Hyperglycemia, [id number] Additional Instructions: You were evaluated in the emergency room for hyperglycemia. Ensure you are using your insulin as prescribed by your doctor. Please stay on a diabetes diet. Please contact her primary care doctor on Sunday and follow-up. COLEMAN TIERNEY APRN Apr 27, 2018 15:13
[2018-04-27] MEDS ORDERED: IV NORMAL SALINE 1000ML BAG 1,000 ML IV ONE ×3 (15:15→16:00)
[2018-04-27 15:16] LABS: BASO # 0.1 x10^3/uL (0.0-0.2); BASO % 1 % (0-3); EOS # 0.2 x10^3/uL (0.0-0.7); EOS % 2 % (0-3); HEMOGLOBIN 14.2 g/dL (12.0-15.5); LYMPH # 2.3 x10^3/uL (1.0-4.8); LYMPH % 21 % (24-48); MEAN CORPUSCULAR HEMOGLOBIN 28 pg (25-35); MEAN CORPUSCULAR HGB CONC 34 g/dL (31-37); MEAN CORPUSCULAR VOLUME 83 fL (79-100); MONO # 0.5 x10^3/uL (0.0-1.1); MONO % 5 % (0-9); NEUT % 72 % (31-73); PLATELET COUNT 264 x10^3/uL (140-400); RED BLOOD COUNT 5.07 x10^6/uL (3.50-5.40); RED CELL DISTRIBUTION WIDTH 14.9 % (11.5-14.5); WHITE BLOOD COUNT 11.1 x10^3/uL (4.0-11.0)
[2018-04-27 15:21] LABS: BILIRUBIN,URINE NEGATIVE (NEG); CLARITY,URINE CLEAR; COLOR,URINE YELLOW; NITRITE,URINE NEGATIVE (NEG); PH,URINE 5.5; PROTEIN,URINE NEGATIVE (NEG-TRACE); UROBILINOGEN,URINE 0.2 mg/dL (0.2 mg/dL)
[2018-04-27 15:30] LABS: RBC,URINE OCC /HPF (0-2); WBC,URINE OCC /HPF (0-4)
[2018-04-27 15:31] LABS: BACTERIA,URINE FEW /HPF (0-FEW); SQUAMOUS EPITHELIAL CELL,UR MOD /LPF
[2018-04-27 15:40] LABS: CALCIUM 9.4 mg/dL (8.5-10.1); CREATININE 0.8 mg/dL (0.6-1.0); GFR 77.6; POTASSIUM 4.4 mmol/L (3.5-5.1)
[2018-04-27] MEDS ORDERED: INSULIN REGULAR 100 UNIT/ML 3ML VIAL. IV ONE (16:00)
[2018-04-27] MEDS ORDERED: MORPHINE SULFATE 10 MG/ML VIAL. IV ONE (18:15)
[2018-04-27] MEDS ORDERED: LABETALOL 20 MG/4 ML DISP.SYRIN. IVP ONE (18:30)
[2018-04-27 19:14] VITALS: BP 183/79
--- NOTE | 2018-04-28 04:21 | EKG ---
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
--- NOTE | 2018-04-28 04:21 | EKG ---
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
[2018-04-29] MEDS ORDERED: TIZA4TAB PO (17:15)
[2018-04-29] MEDS ORDERED: TOPI25TA7 PO (17:15)
[2018-04-29] MEDS ORDERED: WARF3TAB54 PO (17:15)
[2018-04-29] MEDS ORDERED: HYDR-2766 PO (17:15)
[2018-04-29] MEDS ORDERED: INSU100I13 SQ (17:15)
[2018-04-29] MEDS ORDERED: INSU100C SQ (17:15)
[2018-04-29] MEDS ORDERED: [UNRECOGNIZED DRUG - OTHER] PO (17:15)
[2018-04-29] MEDS ORDERED: WARF6TAB47 PO (17:15)
[2018-04-30] MEDS ORDERED: CLON0.1T PO (10:37)
[2018-04-30] MEDS ORDERED: LISI40TA2 PO (10:37)
[2018-04-30] MEDS ORDERED: TRAM50TA PO (10:37)
[2018-04-30] MEDS ORDERED: FLUT16SP NAS (10:37)
[2018-04-30] MEDS ORDERED: ACET250T2 PO (13:28)
== END 2018-04-27 19:19 | disposition home or self-care (01) ==
LOC: ER 14:43
DX: E11.65 Type 2 diabetes mellitus with hyperglycemia (principal); E11.40 Type 2 diabetes mellitus with diabetic neuropathy, unspecified; I48.91 Unspecified atrial fibrillation; E78.00 Pure hypercholesterolemia, unspecified; I10 Essential (primary) hypertension; J45.909 Unspecified asthma, uncomplicated; Z79.4 Long term (current) use of insulin; Z88.8 Allergy status to other drugs, medicaments and biological substances
CPT/HCPCS: 36415; 80048; 81001; 82962; 85025; 93005; 96361; 96374; 96375; 99285; J1815; J2270; J3490; J7030

== ENCOUNTER 2018-07-08 17:58 | Emergency (ER) | payer MEDICARE, MEDICAID ==
[~2018-07-08] VITALS: Ht 160 cm; Wt 94.3 kg
[~2018-07-08 17:58] MED LIST changes: +ACET250T2 PO; +CLON0.1T PO; +FLUT16SP NAS; +HYDR-2766 PO; +INSU100C SQ; +LEVO750T31 PO; +LISI40TA2 PO; +TOPI25TA7 PO; +WARF3TAB54 PO; +WARF6TAB47 PO; +[UNRECOGNIZED DRUG - OTHER] PO
[2018-07-08] MEDS ORDERED: IV NORMAL SALINE 1000ML BAG 1,000 ML IV ONE ×2 (18:30→20:00)
[2018-07-08 18:34] LABS: BASO % 1 % (0-3); EOS # 0.2 x10^3/uL (0.0-0.7); EOS % 2 % (0-3); HEMATOCRIT 40.8 % (36.0-47.0); HEMOGLOBIN 13.8 g/dL (12.0-15.5); LYMPH # 2.8 x10^3/uL (1.0-4.8); LYMPH % 30 % (24-48); MEAN CORPUSCULAR HEMOGLOBIN 30 pg (25-35); MEAN CORPUSCULAR HGB CONC 34 g/dL (31-37); MEAN CORPUSCULAR VOLUME 87 fL (79-100); MONO # 0.4 x10^3/uL (0.0-1.1); MONO % 5 % (0-9); NEUT # 5.9 x10^3uL (1.8-7.7); NEUT % 63 % (31-73); PLATELET COUNT 240 x10^3/uL (140-400); RED BLOOD COUNT 4.69 x10^6/uL (3.50-5.40); RED CELL DISTRIBUTION WIDTH 15.6 % (11.5-14.5); WHITE BLOOD COUNT 9.4 x10^3/uL (4.0-11.0)
[2018-07-08 18:58] LABS: BILIRUBIN,URINE NEGATIVE (NEG); CLARITY,URINE CLEAR; COLOR,URINE YELLOW; NITRITE,URINE NEGATIVE (NEG); PROTEIN,URINE NEGATIVE (NEG-TRACE); UROBILINOGEN,URINE 0.2 mg/dL (0.2 mg/dL)
[2018-07-08 19:05] LABS: CALCIUM 9.8 mg/dL (8.5-10.1); CREATININE 1.2 mg/dL (0.6-1.0); GFR 48.6
--- NOTE | 2018-07-08 19:12 | PHYS DOC ---
Past Medical History Past Medical History: A-Fib, Anxiety, Asthma, Depression, Diabetes-Type II, High Cholesterol, Hypertension Additional Past Medical Histor: NEUROPATHY; RLS Past Surgical History: , Hysterectomy Additional Past Surgical Histo: unknown Alcohol Use: None Drug Use: None Adult General Chief Complaint Chief Complaint: HYPERGLYCEMIA HPI HPI Patient is a 43 year old female who presents with feeling lightheaded. Patient states she was getting into her car in a parking lot when she began to feel lightheaded and "fell against the car." She did not strike her head or have loss of consciousness. She presents to the ER continuing to feel generally weak and lightheaded. The patient has been at baseline health otherwise. She did not have any recent fever or chills. She denies chest pain or palpitations. She does endorse that she has been having spells similar to this over the last several years. She has seen physicians previously but states they never found a cause for her symptoms. Review of Systems Review of Systems Constitutional: Denies fever or chills Eyes: Denies change in visual acuity HENT: Denies nasal congestion or sore throat Respiratory: Denies cough or shortness of breath Cardiovascular: No additional information not addressed in HPI GI: Denies abdominal pain : Denies dysuria or hematuria Musculoskeletal: Denies back pain Integument: Denies rash Neurologic: Denies headache, or focal neuro complaints Endocrine: Denies polyuria All other systems were reviewed and found to be within normal limits, except as documented in this note. Current Medications Current Medications Current Medications Medications (Trade) Dose Ordered Sig/Mo Start Time Stop Time Status Last Admin Dose Admin Insulin Human Regular (HumuLIN R VIAL) 10 unit 1X ONCE 07/08/18 19:45 07/08/18 19:46 DC 07/08/18 19:52 10 UNIT Prochlorperazine Edisylate (Compazine) 10 mg 1X ONCE 07/08/18 19:45 07/08/18 19:46 DC 07/08/18 19:50 10 MG Sodium Chloride 1,000 ml @ 1,000 mls/hr 1X ONCE 07/08/18 20:00 07/08/18 20:59 DC 07/08/18 20:00 1,000 MLS/HR Allergies Allergies Allergies Coded Allergies Type Severity Reaction Last Updated Verified carbidopa Allergy Intermediate 10/12/16 Yes Physical Exam Physical Exam Constitutional: Well developed, well nourished, no acute distress HENT: Normocephalic, atraumatic, bilateral external ears normal, oropharynx moist Eyes: PERRLA, EOMI, conjunctiva normal Neck: Normal range of motion, no tenderness Cardiovascular:Heart rate regular rhythm, no murmur Lungs & Thorax: Bilateral breath sounds clear to auscultation Abdomen: Bowel sounds normal, soft, no tenderness Skin: Warm, dry, no erythema Extremities: No edema Neurologic: Alert and oriented X 3, no focal findings on neuro examination Psychologic: Affect normal Current Patient Data Vital Signs Vital Signs Date Time Temp Pulse Resp B/P (MAP) Pulse Ox O2 Delivery O2 Flow Rate FiO2 07/08/18 21:00 90 19 145/87 (106) 99 Room Air 07/08/18 18:06 98.6 98.6 Lab Values Laboratory Tests Test 07/08/18 18:10 07/08/18 18:40 07/08/18 20:53 07/08/18 21:00 White Blood Count 9.4 x10^3/uL (4.0-11.0) Red Blood Count 4.69 x10^6/uL (3.50-5.40) Hemoglobin 13.8 g/dL (12.0-15.5) Hematocrit 40.8 % (36.0-47.0) Mean Corpuscular Volume 87 fL (79-100) Mean Corpuscular Hemoglobin 30 pg (25-35) Mean Corpuscular Hemoglobin Concent 34 g/dL (31-37) Red Cell Distribution Width 15.6 % (11.5-14.5) H Platelet Count 240 x10^3/uL (140-400) Neutrophils (%) (Auto) 63 % (31-73) Lymphocytes (%) (Auto) 30 % (24-48) Monocytes (%) (Auto) 5 % (0-9) Eosinophils (%) (Auto) 2 % (0-3) Basophils (%) (Auto) 1 % (0-3) Neutrophils # (Auto) 5.9 x10^3uL (1.8-7.7) Lymphocytes # (Auto) 2.8 x10^3/uL (1.0-4.8) Monocytes # (Auto) 0.4 x10^3/uL (0.0-1.1) Eosinophils # (Auto) 0.2 x10^3/uL (0.0-0.7) Basophils # (Auto) 0.0 x10^3/uL (0.0-0.2) Sodium Level 135 mmol/L (136-145) L 141 mmol/L (136-145) Potassium Level 4.0 mmol/L (3.5-5.1) 4.0 mmol/L (3.5-5.1) Chloride Level 97 mmol/L (98-107) L 106 mmol/L (98-107) Carbon Dioxide Level 23 mmol/L (21-32) 25 mmol/L (21-32) Anion Gap 15 (6-14) H 17 mmol/L (6-14) H 10 (6-14) Blood Urea Nitrogen 21 mg/dL (7-20) H 19 mg/dL (7-20) Creatinine 1.2 mg/dL (0.6-1.0) H 1.0 mg/dL (0.6-1.0) Estimated GFR (Cockcroft-Gault) 48.6 60.0 Glucose Level 568 mg/dL (70-99) *H 353 mg/dL (70-99) H 363 mg/dL (70-99) H Calcium Level 9.8 mg/dL (8.5-10.1) 8.6 mg/dL (8.5-10.1) Troponin I Quantitative < 0.017 ng/mL (0.000-0.055) Urine Collection Type Unknown Urine Color Yellow Urine Clarity Clear Urine pH 5.0 Urine Specific [place] >=1.030 Urine Protein Negative mg/dL (NEG-TRACE) Urine Glucose (UA) >=1000 mg/dL (NEG) Urine Ketones (Stick) Negative mg/dL (NEG) Urine Blood Negative (NEG) Urine Nitrite Negative (NEG) Urine Bilirubin Negative (NEG) Urine Urobilinogen Dipstick 0.2 mg/dL (0.2 mg/dL) Urine Leukocyte Esterase Negative (NEG) Urine RBC Occ /HPF (0-2) Urine WBC 1-4 /HPF (0-4) Urine Squamous Epithelial Cells Mod /LPF Urine Bacteria Mod /HPF (0-FEW) Urine Yeast Present /HPF POC Hemoglobin 11.9 g/dL (12-15) L POC Hematocrit 35 % (36-40) L POC Sodium 140 mmol/L (135-145) POC Potassium 4.0 mmol/L (3.5-5.0) POC Chloride 105 mmol/L (98-110) POC Total CO2 23 mmol/L (23-32) POC Blood Urea Nitrogen 19 mg/dL (8-26) POC Creatinine 0.7 mg/dL (0.5-1.4) POC Ionized Calcium (Dalia) 1.18 mmol/L (1.13-1.32) Laboratory Tests 07/08/18 18:10 Laboratory Tests 07/08/18 18:10 07/08/18 20:53 07/08/18 21:00 EKG EKG No STEMI Interpretation Time: 18:40 Radiology/Procedures Radiology/Procedures [] Course & Med Decision Making Course & Med Decision Making Pertinent Labs and Imaging studies reviewed. (See chart for details) Patient is seen and examined. Normal neuro examination. noted to be mildly tachycardic. Will give IVF's and check basic labs. EKG normal other than tachy. Nirav was evaluated in the emergency department for an episode of dizziness. She was found to be hyperglycemic. Upon further questioning, the patient states she had been missing some of her insulin doses. In the ER, she was given IV fluids as well as a dose of insulin. Her symptoms improved. Her BMP was repeated and was found to be normal. Her blood glucose was improved. She was discharged home and encouraged to continue all of her normal medical regimens and to follow-up with her primary care doctor. Dragon Disclaimer Dragon Disclaimer This electronic medical record was generated, in whole or in part, using a voice recognition dictation system. Departure Departure Referrals: YASMIN LEIGH MD (PCP) SAVANAH RUSSELL DO Jul 08, 2018 19:12
[2018-07-08 19:29] LABS: BACTERIA,URINE MOD /HPF (0-FEW); RBC,URINE OCC /HPF (0-2); SQUAMOUS EPITHELIAL CELL,UR MOD /LPF
[2018-07-08 19:30] LABS: YEAST,URINE PRESENT /HPF
[2018-07-08] MEDS ORDERED: INSULIN REGULAR 100 UNIT/ML 3ML VIAL. IV ONE (19:45)
[2018-07-08] MEDS ORDERED: PROCHLORPERAZINE 10 MG/2 ML VIAL. IV ONE (19:45)
[2018-07-08 20:57] LABS: CREATININE ISTAT 0.7 mg/dL (0.5-1.4); HEMOGLOBIN ISTAT 11.9 g/dL (12-15); ION CA ISTAT 1.18 mmol/L (1.13-1.32)
[2018-07-08 21:00] VITALS: BP 145/87
[2018-07-08 21:11] LABS: CALCIUM 8.6 mg/dL (8.5-10.1)
--- NOTE | 2018-07-08 22:34 | EKG ---
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
== END 2018-07-08 21:40 | disposition home or self-care (01) ==
LOC: ER 17:58
DX: R42 Dizziness and giddiness (principal); R53.1 Weakness; E11.65 Type 2 diabetes mellitus with hyperglycemia; I48.91 Unspecified atrial fibrillation; J45.909 Unspecified asthma, uncomplicated; E78.00 Pure hypercholesterolemia, unspecified; I10 Essential (primary) hypertension; Z90.710 Acquired absence of both cervix and uterus; Z88.8 Allergy status to other drugs, medicaments and biological substances
CPT/HCPCS: 36415; 80047; 80048; 81001; 84484; 85025; 93005; 96361; 96374; 96375; 99285; J0780; J1815; J7030

== ENCOUNTER → 2018-08-27 | Outpatient (CLI) | payer MEDICARE, OTHER ==
[~2018-08-27] MED LIST changes: -DILT120C80 PO; +DILT120C85 PO; -GABA800T2 PO; +GABA800T3 PO; -HYDR-2766 PO; +HYDR-2769 PO; +HYDR-3164 PO; -HYDR-971 PO
[2018-08-27 14:06] LABS: BASO # 0.1 x10^3/uL (0.0-0.2); BASO % 1 % (0-3); EOS # 0.2 x10^3/uL (0.0-0.7); EOS % 1 % (0-3); HEMATOCRIT 41.8 % (36.0-47.0); HEMOGLOBIN 14.2 g/dL (12.0-15.5); LYMPH # 2.7 x10^3/uL (1.0-4.8); LYMPH % 24 % (24-48); MEAN CORPUSCULAR HEMOGLOBIN 29 pg (25-35); MEAN CORPUSCULAR HGB CONC 34 g/dL (31-37); MEAN CORPUSCULAR VOLUME 86 fL (79-100); MONO # 0.5 x10^3/uL (0.0-1.1); MONO % 5 % (0-9); NEUT % 70 % (31-73); PLATELET COUNT 259 x10^3/uL (140-400); RED BLOOD COUNT 4.88 x10^6/uL (3.50-5.40); RED CELL DISTRIBUTION WIDTH 14.6 % (11.5-14.5); WHITE BLOOD COUNT 11.6 x10^3/uL (4.0-11.0)
== END | disposition home or self-care (01) ==
LOC: LAB 13:47
PROVIDERS: ATTEND Psychiatry & Neurology Neurology
DX: G93.2 Benign intracranial hypertension (principal)
CPT/HCPCS: 36415; 82565; 84450; 84460; 84520; 85025

== ENCOUNTER 2018-09-17 12:56 | Emergency (ER) | payer OTHER ==
[~2018-09-17] VITALS: Ht 160 cm; Wt 93.4 kg
[2018-09-17 13:21] VITALS: BP 198/89
[2018-09-17] MEDS ORDERED: BENZ100C PO (13:54)
[2018-09-17] MEDS ORDERED: AMOX1TAB61 PO (13:54)
--- NOTE | 2018-09-17 13:54 | PHYS DOC ---
Past Medical History Past Medical History: A-Fib, Anxiety, Asthma, Depression, Diabetes-Type II, High Cholesterol, Hypertension Additional Past Medical Histor: NEUROPATHY; RLS Past Surgical History: , Hysterectomy Additional Past Surgical Histo: unknown Alcohol Use: None Drug Use: None Adult General Chief Complaint Chief Complaint: EARACHE/EAR PAIN [facility] HPI Patient is a 43 year old female who presents to the emergency room with complaints of right ear pain since last night. Patient states she has had a nonproductive cough for the last week to 2 weeks with Nasal congestion, runny nose, and postnasal drainage. Patient denies any abdominal pain, nausea, vomiting, or diarrhea. She denies any fever. She states this morning she woke there was dried blood on her pillow case. Review of Systems Review of Systems Constitutional: Denies fever or chills [] Eyes: Denies change in visual acuity, redness, or eye pain [] HENT: Denies nasal congestion or sore throat; see history of present illness [] Respiratory: Denies shortness of breath; see history of present illness Cardiovascular: No additional information not addressed in HPI [] GI: Denies abdominal pain, nausea, vomiting, or diarrhea [] Musculoskeletal: Denies back pain or joint pain [] Integument: Denies rash or skin lesions [] Neurologic: Denies headache, focal weakness or sensory changes [] All other systems were reviewed and found to be within normal limits, except as documented in this note. Current Medications Current Medications Current Medications Medications (Trade) Dose Ordered Sig/Mo Start Time Stop Time Status Last Admin Dose Admin Amoxicillin/ Clavulanate Potassium (Augmentin 875/ 125mg) 1 tab 1X ONCE 09/17/18 15:00 09/17/18 15:01 DC 09/17/18 15:00 1 TAB Allergies Allergies Allergies Coded Allergies Type Severity Reaction Last Updated Verified carbidopa Allergy Intermediate 10/12/16 Yes Physical Exam Physical Exam Constitutional: Well developed, well nourished, no acute distress, non-toxic appearance. [] HENT: Normocephalic, atraumatic, bilateral external ears normal, R TM infected with small perforation noted at 11:00, left TM normal, postnasal drainage present in the posterior pharynx, oropharynx moist, no oral exudates, nose normal. [] Eyes: conjunctiva normal, no discharge. [] Neck: Normal range of motion, no tenderness, supple, no stridor. [] Cardiovascular:Heart rate regular rhythm, no murmur [] Lungs & Thorax: Bilateral breath sounds clear to auscultation [] Skin: Warm, dry, no erythema, no rash. [] Extremities: No cyanosis, no edema. [] Neurologic: Alert and oriented X 3, normal motor function, normal sensory function, no focal deficits noted. [] Psychologic: Affect normal, judgement normal, mood normal. [] Current Patient Data Vital Signs Vital Signs Date Time Temp Pulse Resp B/P (MAP) Pulse Ox O2 Delivery O2 Flow Rate FiO2 09/17/18 13:21 99.9 119 20 198/89 (125) 95 Room Air 99.9 EKG EKG [] Radiology/Procedures Radiology/Procedures [] Course & Med Decision Making Course & Med Decision Making Pertinent Labs and Imaging studies reviewed. (See chart for details) Due to insurance changes with the beginning of the year pt was unable to fill prescriptions. Pt returned and was given first dose of augmentin in the ER. [] Dragon Disclaimer Dragon Disclaimer This electronic medical record was generated, in whole or in part, using a voice recognition dictation system. Departure Departure Impression: Primary Impression: Cough Additional Impression: Right otitis media with spontaneous rupture of eardrum Disposition: 01 HOME, SELF-CARE Condition: STABLE Referrals: YASMIN LEIGH MD (PCP) Patient Instructions: Otitis Media, Adult, [id number], Upper Respiratory Infection, Adult, [id number] Additional Instructions: Fill prescription(s) and use as directed. Cool mist humidifier in room at bedtime. Tylenol or ibuprofen prn pain/fever. Increase clear fluids. Avoid triggers such as smoke, fragrance, dust, and pollen. Follow-up with your primary care doctor this week, return to the ER if your symptoms worsen. Scripts Benzonatate (TESSALON PERLE) 100 Mg Capsule 1 CAP PO TID PRN for COUGH, #21 CAP 0 Refills Prov: KARMA BARRON BOOK ILLUSTRATOR 09/17/18 Amoxicillin/Potassium Clav (AUGMENTIN 875-125 TABLET) 1 Each Tablet 1 TAB PO BID, #20 TAB 0 Refills Prov: KARMA BARRON BOOK ILLUSTRATOR 09/17/18 Problem Qualifiers KARMA BARRON BOOK ILLUSTRATOR Sep 17, 2018 13:54
[2018-09-17] MEDS ORDERED: AMOXICILLIN/K CLAV 875/125MG TABLET. PO ONE (15:00)
== END 2018-09-17 15:05 | disposition home or self-care (01) ==
LOC: ER 12:56
DX: H66.91 Otitis media, unspecified, right ear (principal); H72.91 Unspecified perforation of tympanic membrane, right ear; R05 Cough; R09.81 Nasal congestion; R09.89 Other specified symptoms and signs involving the circulatory and respiratory systems; I48.91 Unspecified atrial fibrillation; J45.909 Unspecified asthma, uncomplicated; E78.00 Pure hypercholesterolemia, unspecified; E11.40 Type 2 diabetes mellitus with diabetic neuropathy, unspecified; Z88.8 Allergy status to other drugs, medicaments and biological substances
CPT/HCPCS: 99283

== ENCOUNTER → 2018-10-23 | Outpatient (CLI) | payer MEDICARE, MEDICAID ==
[~2018-10-23] MED LIST changes: +BENZ100C PO; -GABA800T3 PO; +GABA800T5 PO; +TRAZ-118 PO; -TRAZ-85 PO
--- NOTE | 2018-10-23 15:58 | RAD ---
Indication: Diabetic peripheral neuropathy. TECHNIQUE: Ultrasound arterial brachial index. COMPARISON: None FINDINGS: Right arm pressure 160. Right ankle dorsalis pedis artery pressure 180. Right ankle posterior tibial artery pressure 189. Right Ankle-brachial index 1.18. Left arm pressure 148. Left ankle dorsalis pedis artery pressure 180. Left ankle posterior tibial artery pressure 181. Left Ankle-brachial index 1.13. IMPRESSION: Bilateral normal ankle-brachial index. Electronically signed by: Ronnie Stern DO (10/23/2018 3:53 PM) [id number]
== END | disposition home or self-care (01) ==
LOC: US 15:37
PROVIDERS: ATTEND Family Medicine
DX: E13.42 Other specified diabetes mellitus with diabetic polyneuropathy (principal); J44.9 Chronic obstructive pulmonary disease, unspecified; E78.00 Pure hypercholesterolemia, unspecified; I10 Essential (primary) hypertension
CPT/HCPCS: 93922

== ENCOUNTER → 2018-11-11 | Outpatient (CLI) | payer MEDICARE, MEDICAID ==
--- NOTE | 2018-11-11 22:29 | PAIN ---
DATE OF SERVICE: 11/11/2018 INITIAL CONSULTATION FOR PAIN CLINIC CHIEF COMPLAINT: Bilateral hand and bilateral foot pain. HISTORY OF PRESENT ILLNESS: This is a 43-year-old female who presents with history of pain since about 2009. Pain in the stocking-glove distribution hands and feet bilaterally, fairly equal with diagnosis of diabetic polyneuropathy. The patient reports she has been taking gabapentin, has been gradually increased over the years and was doing very well and helped until just the past few months ago. She tried Lyrica in the past, was not significantly successful, but the gabapentin is doing very well and she is on 800 mg 4 times a day now and the pain is becoming more noticeable over the past few months. The patient reports it is in the hands and the feet, described as constant, sharp, stabbing, throbbing, shooting with numbness in the hands, radiating into the lower extremities and feet, burning pain and aching as well. The patient reports it wakes her from sleep every 2-3 times at night, does not affect her bowel or bladder, does affect her ability to walk. She occasionally uses a walker, does not have it with her today. She has had physical therapy in the past, which were not helpful; injections and is doing exercise currently in her home, doing some walking mostly. Again, gabapentin and tramadol helped significantly and she is taking both of those as recently today, but they only decreased the pain by about 50-60%, initially with near 100% with the gabapentin alone. The patient rates her disability rate from 0-10, 10 being the worst as 3 with family and home responsibilities, recreation; 10 with occupation; 2 with social activities; 7 with sexual behavior; 3 with self-care and 3 with life support activities. The patient did have an MRI scan of the lumbar spine, which shows only some mild degenerative changes in the disks at L3-L4, L4-L5 and L5-S1 over the mid and lower lumbar spine without any significant central stenosis or neural foraminal stenosis at any level. PAST MEDICAL HISTORY: Significant for type 1 diabetes, anemia, blood transfusions, previous , hypertension, sleep apnea, atrial fibrillation, tachycardia, reflux, dizziness, headaches, neuropathy, depression, arthritis. PREVIOUS SURGERY: Include total abdominal hysterectomy in 2017 and a in 1997. CURRENT MEDICATIONS: Include topiramate, insulin, Humalog and Lantus, gabapentin, omeprazole, iron, Lexapro, fexofenadine, albuterol inhaler, Symbicort inhaler, Coumadin, clonidine, fluticasone inhaler, simvastatin daily baby aspirin, trazodone, and tramadol. ALLERGIES: THE PATIENT IS ALLERGIC TO carbidopa. FAMILY HISTORY: Significant for no major medical conditions that she is aware of. SOCIAL HISTORY: The patient does not smoke, does not drink alcohol, does not use any illegal, illicit or recreational drugs. He is single, has one child, living at home and lives locally in [place], [place]. REVIEW OF SYSTEMS: The patient's review of systems is positive for those items mentioned in history of present illness. All systems reviewed and otherwise negative. It is complete, full and well documented on the patient's chart. PHYSICAL EXAMINATION: VITAL SIGNS: The patient's blood pressure is 120/91, pulse is 116, respirations 18, temperature is 98.3 degrees Fahrenheit, height is 5 feet 3 inches, weight 196 pounds. GENERAL: The patient is awake, alert, oriented, appropriate, very pleasant demeanor. HEENT: Head shows normocephalic, atraumatic. Extraocular movements intact and symmetrical. Oral cavity: Mucous membranes moist and pink. Dentition is intact. NECK: Shows anterior throat supple without palpable lymphadenopathy noted. Swallow reflex symmetrical. CHEST: Shows normal with inspection. Breath sounds clear to auscultation bilaterally. HEART: Shows S1, S2 clear. No murmurs auscultated. ABDOMEN: Obese, soft, nontender, nondistended. No palpable organomegaly is noted. No rebound or guarding demonstrated. BACK: Shows spine grossly in the midline. Slight exaggeration of thoracic kyphosis, normal cervical lordotic curvature and lumbar lordotic curvature. Lumbar paraspinous muscle shows symmetrical on inspection; on palpation shows some moderate tenderness diffusely but only diffusely throughout the upper, middle and lower distribution of the paraspinous muscles only minimally. No difficulty with rotation both past 10 degrees right and left as well as extension greater than 10 degrees, forward flexion 45 degrees without difficulty. Cervical spine shows good rotation as well without difficulty past 45 degrees right and left as well as full extension, full forward flexion without pain reported. EXTREMITIES: Upper extremity deep tendon reflexes at 2+ in the biceps and triceps tendons. Motor exam is strong with [employer] strength rated 5/5. Lower extremities show deep tendon reflexes 2+ in the patellar, 1+ tendo-calcaneus tendons are equal. Motor exam is strong with 5/5 dorsiflexion, extension, quadriceps and hamstring flexion. The patient has significant decreased discrimination with sharp and dull in a classic hand glove distribution without following any dermatomal patterns both right and left and this is true in the legs as well with feet, to the knee on the right and just below the knee on the left. Left knee anteriorly has good sharp and dull discrimination, but below this is not, again in a stocking distribution bilaterally. Peripheral pulses are 2+, radial 1+, posterior tibia. No peripheral edema is noted bilaterally. No discoloration of the feet, legs or the hands, they appear equal right and left in color and appearance. Peripheral pulses are strong in the extremities as well. No allodynia, no hyperesthesia. No discoloration or rashes are demonstrated. SKIN: Warm and dry, good turgor and no edema. Shoulder bruising. IMPRESSION: This is a 43-year-old female with: 1. Approximate 9-year history of pain, originally well controlled with gabapentin, but now at near maximum doses of gabapentin with pain breaking through once again. Tramadol is helpful as well. 2. Arthritis. 3. Reflux. 4. Depression. 5. Hypertension. 6. Diabetes. PLAN: Options were discussed with the patient including conservative medical management, physical therapy, interventional techniques. We will encourage the patient to start with physical therapy and water therapy specifically to get her more mobile. This may be more soothing with the hands and the feet as well, also for potential with increased exercise and weight loss, which may help the diabetes and subsequently help the peripheral neuropathic pain at least to the point where the gabapentin may be more helpful as it was in the past. The patient understands and agrees and reports she has been trying to lose weight on her own, but has had no good success thus far. We will have physical therapy order for pool therapy to start as soon as able. The patient will follow up once therapy is completed. We also discussed some dietary issues and food eating habits with the patient as well. SAVANAH BHANDARI MD DR: LAZARO/dylan JOB#: [id number] / [id number] YASMIN Zamudio MD
== END | disposition home or self-care (01) ==
LOC: PNCL 09:50
PROVIDERS: ATTEND Anesthesiology
DX: M79.672 Pain in left foot (principal); M79.671 Pain in right foot; M79.642 Pain in left hand; M79.641 Pain in right hand; M19.90 Unspecified osteoarthritis, unspecified site; F32.9 Major depressive disorder, single episode, unspecified; K21.9 Gastro-esophageal reflux disease without esophagitis; E11.9 Type 2 diabetes mellitus without complications; G47.30 Sleep apnea, unspecified; I48.91 Unspecified atrial fibrillation; I10 Essential (primary) hypertension; Z86.2 Personal history of diseases of the blood and blood-forming organs and certain disorders involving the immune mechanism
CPT/HCPCS: G0463

== ENCOUNTER → 2019-04-11 | Outpatient (CLI) | payer MEDICARE, MEDICAID ==
[2019-04-11 11:35] LABS: BASO # 0.1 x10^3/uL (0.0-0.2); BASO % 1 % (0-3); EOS # 0.2 x10^3/uL (0.0-0.7); EOS % 2 % (0-3); HEMATOCRIT 41.7 % (36.0-47.0); HEMOGLOBIN 13.8 g/dL (12.0-15.5); LYMPH # 2.6 x10^3/uL (1.0-4.8); LYMPH % 30 % (24-48); MEAN CORPUSCULAR HEMOGLOBIN 27 pg (25-35); MEAN CORPUSCULAR HGB CONC 33 g/dL (31-37); MEAN CORPUSCULAR VOLUME 82 fL (79-100); MONO # 0.5 x10^3/uL (0.0-1.1); MONO % 6 % (0-9); NEUT # 5.4 x10^3/uL (1.8-7.7); NEUT % 61 % (31-73); PLATELET COUNT 225 x10^3/uL (140-400); RED BLOOD COUNT 5.06 x10^6/uL (3.50-5.40); RED CELL DISTRIBUTION WIDTH 13.5 % (11.5-14.5); WHITE BLOOD COUNT 8.8 x10^3/uL (4.0-11.0)
[2019-04-11 11:43] LABS: AMPHETAMINE/METHAMPHETAMINE NEG (NEG); BARBITURATES NEG (NEG); BENZODIAZEPINES NEG (NEG); CANNABINOIDS NEG (NEG); COCAINE NEG (NEG); METHADONE NEG (NEG); OPIATES NEG (NEG); PHENCYCLIDINE NEG (NEG)
[2019-04-11 12:01] LABS: ALBUMIN 3.3 g/dL (3.4-5.0); ALBUMIN/GLOBULIN RATIO 0.8 (1.0-1.7); CALCIUM 8.8 mg/dL (8.5-10.1); CREATININE 0.9 mg/dL (0.6-1.0); GFR 67.7; POTASSIUM 3.9 mmol/L (3.5-5.1); TOTAL BILIRUBIN 0.3 mg/dL (0.2-1.0); TOTAL PROTEIN 7.4 g/dL (6.4-8.2)
[2019-04-12 00:07] LABS: HEMOGLOBIN A1C 13.3 % (4.8-5.6)
== END | disposition home or self-care (01) ==
LOC: LAB 10:45
PROVIDERS: ATTEND Family Medicine
DX: E11.65 Type 2 diabetes mellitus with hyperglycemia (principal); L03.90 Cellulitis, unspecified; G93.2 Benign intracranial hypertension; Z79.899 Other long term (current) drug therapy
CPT/HCPCS: 36415; 80053; 80307; 82533; 83036; 84443; 85025

== ENCOUNTER 2020-01-19 09:32 | Inpatient (IN) | payer MEDICARE, MEDICAID ==
[~2020-01-19] VITALS: Ht 160 cm; Wt 92.5 kg
[~2020-01-19 09:32] MED LIST changes: +CEPH250C PO; -DILT120C85 PO; +DILT120C99 PO; +HYDR-2763 PO; +OMEP40CA45 PO; -OMEP40CA5 PO; +SIMV40TA18 PO; -SIMV40TA3 PO; -TIZA4TAB PO; +TIZA4TAB2 PO
[2020-01-19] MEDS ORDERED: fentaNYL PF VIAL 100 MCG/2 ML VIAL IVP ONE (10:00)
[2020-01-19] MEDS ORDERED: ONDANSETRON PF 4 MG/2 ML VIAL. IVP ONE ×2 (10:00)
[2020-01-19] MEDS ORDERED: IV NORMAL SALINE 1000ML BAG 1,000 ML IV ONE ×2 (10:00→11:00)
[2020-01-19 10:11] LABS: BILIRUBIN,URINE NEGATIVE (NEG); CLARITY,URINE CLEAR; COLOR,URINE YELLOW; NITRITE,URINE NEGATIVE (NEG); PH,URINE 5.5 (<5.0-8.0); PROTEIN,URINE 100 mg/dL (NEG-TRACE); UROBILINOGEN,URINE 0.2 mg/dL (0.2 mg/dL)
[2020-01-19 10:13] LABS: BASO # 0.1 x10^3/uL (0.0-0.2); BASO % 1 % (0-3); EOS # 0.2 x10^3/uL (0.0-0.7); EOS % 2 % (0-3); HEMATOCRIT 43.9 % (36.0-47.0); HEMOGLOBIN 14.2 g/dL (12.0-15.5); LYMPH # 2.8 x10^3/uL (1.0-4.8); LYMPH % 22 % (24-48); MEAN CORPUSCULAR HEMOGLOBIN 27 pg (25-35); MEAN CORPUSCULAR HGB CONC 32 g/dL (31-37); MEAN CORPUSCULAR VOLUME 83 fL (79-100); MONO # 0.7 x10^3/uL (0.0-1.1); MONO % 5 % (0-9); NEUT # 8.7 x10^3/uL (1.8-7.7); NEUT % 70 % (31-73); PLATELET COUNT 329 x10^3/uL (140-400); RED BLOOD COUNT 5.26 x10^6/uL (3.50-5.40); RED CELL DISTRIBUTION WIDTH 15.4 % (11.5-14.5); WHITE BLOOD COUNT 12.5 x10^3/uL (4.0-11.0)
[2020-01-19 10:20] LABS: CALCIUM 9.6 mg/dL (8.5-10.1); CREATININE 1.1 mg/dL (0.6-1.0); GFR 53.5; POTASSIUM 3.7 mmol/L (3.5-5.1)
[2020-01-19 10:26] LABS: ALBUMIN 3.7 g/dL (3.4-5.0); ALBUMIN/GLOBULIN RATIO 0.8 (1.0-1.7); MAGNESIUM 1.6 mg/dL (1.8-2.4); TOTAL BILIRUBIN 0.4 mg/dL (0.2-1.0); TOTAL PROTEIN 8.4 g/dL (6.4-8.2)
[2020-01-19 10:45] LABS: BACTERIA,URINE MODERATE /HPF (0-FEW); RBC,URINE 20-40 /HPF (0-2); SQUAMOUS EPITHELIAL CELL,UR MOD /LPF; WBC,URINE 0 /HPF (0-4)
--- NOTE | 2020-01-19 11:11 | PHYS DOC ---
Past Medical History Past Medical History: A-Fib, Anxiety, Asthma, COPD, Depression, Diabetes-Type II, High Cholesterol, Hypertension Additional Past Medical Histor: NEUROPATHY; RLS Past Surgical History: , Hysterectomy Additional Past Surgical Histo: unknown Smoking Status: Never Smoker Alcohol Use: None Drug Use: None Adult General Chief Complaint Chief Complaint: HYPERGLYCEMIA HPI HPI Patient is a 44 year old female with history of insulin-dependent diabetes, COPD, hypertension, A. fib who presents with hyperglycemia with blood sugars greater than 600 over the past 24 hours and with nausea and vomiting this morning. Patient last took for a 50 units of Lantus and 55 units of NovoLog prior to ED arrival. Reports feeling tremulous with polyuria and dysuria. Also reports right flank pain. No fever chills or sweats. Denies cough, sore throat, chest pain palpitations shortness of breath. No other acute symptoms or complaints. [] Review of Systems Review of Systems Review of symptoms as per HPI. All other review of symptoms are negative.] All other systems were reviewed and found to be within normal limits, except as documented in this note. Current Medications Current Medications Current Medications Medications (Trade) Dose Ordered Sig/Mo Start Time Stop Time Status Last Admin Dose Admin Ceftriaxone Sodium (Rocephin) 1 gm DAILY 01/19/20 13:00 Fentanyl Citrate (Fentanyl 2ml Vial) 50 mcg 1X ONCE 01/19/20 10:00 01/19/20 10:05 DC 01/19/20 10:14 50 MCG Info (CONTRAST GIVEN -- Rx MONITORING) 1 each PRN DAILY PRN 01/19/20 11:30 01/21/20 11:29 Iohexol (Omnipaque 300 Mg/ml) 60 ml 1X ONCE 01/19/20 11:30 01/19/20 11:31 DC 01/19/20 11:50 60 ML Ondansetron HCl (Zofran) 4 mg 1X ONCE 01/19/20 10:00 01/19/20 10:05 DC 01/19/20 10:46 4 MG Sodium Chloride 1,000 ml @ 1,000 mls/hr 1X ONCE 01/19/20 11:00 01/19/20 11:59 DC 01/19/20 10:44 1,000 MLS/HR Allergies Allergies Allergies Coded Allergies Type Severity Reaction Last Updated Verified carbidopa Allergy Intermediate 10/12/16 Yes Physical Exam Physical Exam Constitutional: Well developed, well nourished, no acute distress, non-toxic appearance. [] HENT: Normocephalic, atraumatic, bilateral external ears normal, oropharynx moist, nose normal. [] Eyes: PERRLA, EOMI, conjunctiva normal, no discharge. [] Neck: Normal range of motion, no tenderness. [] Cardiovascular:Heart rate regular rhythm, no murmur [] Lungs & Thorax: Bilateral breath sounds clear to auscultation [] Abdomen: Bowel sounds normal, soft, suprapubic tendernes. Periumbilical cellulitis [] Skin: Warm, dry, no erythema, no rash. [] Back: No tenderness, no CVA tenderness. [] Extremities: No tenderness, no edema. [] Neurologic: Alert and oriented X 3, normal motor function, normal sensory function, no focal deficits noted. [] Psychologic: Affect normal, judgement normal, mood normal. [] Current Patient Data Vital Signs Vital Signs Date Time Temp Pulse Resp B/P (MAP) Pulse Ox O2 Delivery O2 Flow Rate FiO2 01/19/20 11:57 97 20 128/67 (87) 99 Nasal Cannula 2.0 01/19/20 09:51 98.6 98.6 Lab Values Laboratory Tests Test 01/19/20 09:47 01/19/20 09:55 01/19/20 10:00 01/19/20 10:42 Glucose (Fingerstick) 449 mg/dL (70-99) H 407 mg/dL (70-99) H White Blood Count 12.5 x10^3/uL (4.0-11.0) H Red Blood Count 5.26 x10^6/uL (3.50-5.40) Hemoglobin 14.2 g/dL (12.0-15.5) Hematocrit 43.9 % (36.0-47.0) Mean Corpuscular Volume 83 fL (79-100) Mean Corpuscular Hemoglobin 27 pg (25-35) Mean Corpuscular Hemoglobin Concent 32 g/dL (31-37) Red Cell Distribution Width 15.4 % (11.5-14.5) H Platelet Count 329 x10^3/uL (140-400) Neutrophils (%) (Auto) 70 % (31-73) Lymphocytes (%) (Auto) 22 % (24-48) L Monocytes (%) (Auto) 5 % (0-9) Eosinophils (%) (Auto) 2 % (0-3) Basophils (%) (Auto) 1 % (0-3) Neutrophils # (Auto) 8.7 x10^3/uL (1.8-7.7) H Lymphocytes # (Auto) 2.8 x10^3/uL (1.0-4.8) Monocytes # (Auto) 0.7 x10^3/uL (0.0-1.1) Eosinophils # (Auto) 0.2 x10^3/uL (0.0-0.7) Basophils # (Auto) 0.1 x10^3/uL (0.0-0.2) Sodium Level 135 mmol/L (136-145) L Potassium Level 3.7 mmol/L (3.5-5.1) Chloride Level 94 mmol/L (98-107) L Carbon Dioxide Level 29 mmol/L (21-32) Anion Gap 12 (6-14) Blood Urea Nitrogen 17 mg/dL (7-20) Creatinine 1.1 mg/dL (0.6-1.0) H Estimated GFR (Cockcroft-Gault) 53.5 BUN/Creatinine Ratio 15 (6-20) Glucose Level 464 mg/dL (70-99) H Lactic Acid Level 2.5 mmol/L (0.4-2.0) H Calcium Level 9.6 mg/dL (8.5-10.1) Magnesium Level 1.6 mg/dL (1.8-2.4) L Total Bilirubin 0.4 mg/dL (0.2-1.0) Aspartate Amino Transferase (AST) 18 U/L (15-37) Alanine Aminotransferase (ALT) 31 U/L (14-59) Alkaline Phosphatase 161 U/L (46-116) H Troponin I Quantitative < 0.017 ng/mL (0.000-0.055) Total Protein 8.4 g/dL (6.4-8.2) H Albumin 3.7 g/dL (3.4-5.0) Albumin/Globulin Ratio 0.8 (1.0-1.7) L Lipase 68 U/L (73-393) L Acetone Level Neg (NEG) Urine Collection Type Unknown Urine Color Yellow Urine Clarity Clear Urine pH 5.5 (<5.0-8.0) Urine Specific Dawson >=1.030 (1.000-1.030) Urine Protein 100 mg/dL (NEG-TRACE) Urine Glucose (UA) >=1000 mg/dL (NEG) Urine Ketones (Stick) Trace mg/dL (NEG) Urine Blood Moderate (NEG) Urine Nitrite Negative (NEG) Urine Bilirubin Negative (NEG) Urine Urobilinogen Dipstick 0.2 mg/dL (0.2 mg/dL) Urine Leukocyte Esterase Negative (NEG) Urine RBC 20-40 /HPF (0-2) Urine WBC 0 /HPF (0-4) Urine Squamous Epithelial Cells Mod /LPF Urine Bacteria Moderate /HPF (0-FEW) Test 01/19/20 12:00 Glucose (Fingerstick) 394 mg/dL (70-99) H Laboratory Tests 01/19/20 09:55 Laboratory Tests 01/19/20 09:55 EKG EKG [EKG: reviewed] Radiology/Procedures Radiology/Procedures [CT abdomen pelvis: Subcutaneous edema consistent with cellulitis. No acute intra-abdominal/pelvic process.] Course & Med Decision Making Course & Med Decision Making Pertinent Labs and Imaging studies reviewed. (See chart for details) [IVF and abx given. BS improved, acetone negative. Patitent remains nauseated. Will admit to the hospitalist service.] Dragon Disclaimer Dragon Disclaimer This electronic medical record was generated, in whole or in part, using a voice recognition dictation system. Departure Departure Impression: Primary Impression: Cellulitis Additional Impression: Hyperglycemia Disposition: ADMITTED INPATIENT Condition: STABLE Referrals: JANEEN SEALS APRN (PCP) Problem Qualifiers BEKAH LANGLEY DO January 19, 2020 11:11
[2020-01-19] MEDS ORDERED: IOHEXOL 300 MG/ML 100ML VIAL. IV ONE (11:30)
[2020-01-19] MEDS ORDERED: CONTRAST GIVEN. MC PRN (11:30)
--- NOTE | 2020-01-19 11:45 | EKG ---
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
--- NOTE | 2020-01-19 12:00 | HP ---
ADMIT DATE: 01/19/2020 CHIEF COMPLAINT: Hyperglycemia. HISTORY OF PRESENT ILLNESS: The patient is a pleasant 44-year-old female well known to my service. She has multiple comorbidities including COPD. Basically, she presented with hyperglycemia. She is almost in DKA, but her gap is actually normal at this point, but her glucose is in the 600s. I discussed the case with ER physician. We are going to admit the patient with DKA protocol. PAST MEDICAL HISTORY: Hypertension, AFib, anxiety, COPD, depression, diabetes, hyperlipidemia, neuropathy, , hysterectomy. ALLERGIES: CARBIDOPA. FAMILY HISTORY: Coronary artery disease. SOCIAL HISTORY: She quit smoking, no drinking or drugs. MEDICATIONS: Reviewed, please refer to the MRAD. REVIEW OF SYSTEMS: GENERAL: She complains of hyperglycemia. SKIN: No bruising, hair changes or rashes. EYES: No blurred, double or loss of vision. NOSE AND THROAT: No history of nosebleeds, hoarseness or sore throat. HEART: No history of palpitations, chest pain or shortness of breath on exertion. LUNGS: Denies cough, hemoptysis, wheezing or shortness of breath. GASTROINTESTINAL: Denies changes in appetite, nausea, vomiting, diarrhea or constipation. GENITOURINARY: No history of frequency, urgency, hesitancy or nocturia. NEUROLOGIC: Denies history of numbness, tingling, tremor or weakness. PSYCHIATRIC: No history of panic, anxiety or depression. ENDOCRINE: No history of heat or cold intolerance, polyuria or polydipsia. EXTREMITIES: Denies muscle weakness, joint pain, pain on walking or stiffness. PHYSICAL EXAMINATION: VITALS: Within normal limits and are stable. GENERAL: No apparent distress. Alert and oriented. HEENT: Head is normocephalic, atraumatic, pupils were equally round and reactive to light and accommodation. NECK: Supple, no JVD, no thyromegaly was noted. LUNGS: Clear to auscultation in all lung daniels without rhonchi or wheezing. HEART: RRR, S1, S2 present. Peripheral pulses intact, no obvious murmurs were noted. ABDOMEN: Soft, nontender. Positive bowel sounds no organomegaly, normal bowel sounds. EXTREMITIES: Without any cyanosis, clubbing, or edema. Pedal pulses intact, Homans sign is negative. NEUROLOGIC: Normal speech, normal tone. A & O x3, moves all extremities, no obvious focal deficits. PSYCHIATRIC: Normal affect, normal mood. Stable. SKIN: No ulcerations or rashes, good skin turgor, no jaundice. VASCULAR: Good capillary refill, neurovascular bundle appears to be intact. LABORATORY DATA: Electrolytes: Sodium 135, potassium 3.7, chloride 94, bicarb 29, BUN 17, creatinine 1.1, glucose 464. Anion gap is borderline high at 12. Lactic acid high at 2.5. White count 12.5, hemoglobin 14.2, platelets 329. Urinalysis negative. Acetone level was negative. IMAGING: Pending. ASSESSMENT AND PLAN: Severe hyperglycemia, lactic acidosis, leukocytosis, hyponatremia. The patient has been admitted. We will start IV fluids, IV insulin. I started IV Rocephin. Home meds, deep venous thrombosis prophylaxis. Full code. We will get a CAT scan of abdomen and she is having some pain there. We have a test pending. anna Greer. fentanyl. MEDHAT LARSON DO DR: VIVI/dylan JOB#: [id number] / [id number]
--- NOTE | 2020-01-19 12:03 | RAD ---
EXAM: CT Abdomen and Pelvis with IV contrast INDICATION: Right lower quadrant abdominal pain. TECHNIQUE: Multi-detector row CT images were acquired from the lung bases through the abdomen and pelvis with the use of IV contrast. Sagittal and coronal images were acquired from the transaxial data. All CT scans performed at this facility utilize dose optimization techniques as appropriate to the exam, including the following: Automated exposure control and adjustment of the mA and/or KV according to patient size (this includes techniques or standardized protocols for targeted exams where dose is indication/reason for exam). IV CONTRAST: Administered ORAL CONTRAST: Not administered COMPARISON: 07/19/[address] with IV contrast FINDINGS: LOWER CHEST: Unremarkable LIVER: Hepatomegaly and steatosis within the liver measuring 26.4 cm in cranial caudal extent. BILIARY SYSTEM: Gallbladder is unremarkable. Bile ducts are not dilated. PANCREAS: Unremarkable SPLEEN: Unremarkable ADRENALS: Unremarkable KIDNEYS & URETERS: Unremarkable BLADDER: Unremarkable REPRODUCTIVE ORGANS: Hysterectomy. GASTROINTESTINAL: The stomach, small bowel, and colon are unremarkable. The appendix is normal. MESENTERY/PERITONEUM/RETROPERITONEUM: Unremarkable VASCULAR: Unremarkable LYMPH NODES: No adenopathy OSSEOUS & SOFT TISSUES: Skin thickening of the umbilicus with fat stranding around the umbilicus is present. This is new from the previous examination. This surrounds a similar sized tiny (9 mm) fat containing umbilical hernia. IMPRESSION: 1. Hepatomegaly and hepatic steatosis. Correlate for any evidence of steatohepatitis. 2. Skin thickening and subcutaneous fat stranding around the umbilicus could reflect cellulitis in the appropriate clinical context. Correlate with the physical exam. 3. No evidence of acute appendicitis or other acute findings in the abdomen or pelvis following previous hysterectomy. Electronically signed by: Ruben Castorena MD (01/19/2020 12:00 PM) [id number]
--- NOTE | 2020-01-19 14:15 | NUR ---
Patient new admit at 1415 hours: 145/79 BP, 98.4 T, 96% O2, 94 HR, Sinus Rhythm - Sinus Tach. Dr. Man paged at 1600hrs
[2020-01-19 14:30] VITALS: BP 145/79
[2020-01-19] MEDS: INSULIN REGULAR VIAL 100 UNIT in IV NORMAL SALINE 100ML 100 ML IV PRN (15:48)
[2020-01-19] MEDS ORDERED: CLON0.5T PO (16:29)
[2020-01-19] MEDS ORDERED: TRAM50TA PO (16:29)
[2020-01-19] MEDS ORDERED: APIX5TAB PO (16:29)
[2020-01-19] MEDS ORDERED: HYDR50CA2 PO (16:30)
[2020-01-19] MEDS ORDERED: C.DIFF MED SCREEN BY RX. MC ONE (16:45)
[2020-01-19] MEDS: cefTRIAXone IV Push 1 GM VIAL. IVP SCH (17:05)
[2020-01-19] MEDS: KETOROLAC 30 MG/ML VIAL. IVP PRN (17:59)
[2020-01-19] MEDS: CYCLOBENZAPRINE 10 MG TABLET. PO PRN (17:59)
[2020-01-19 19:00] VITALS: BP 124/75
[2020-01-19] MEDS: diphenhydrAMINE HCL 25 MG CAPSULE PO PRN (21:42)
[2020-01-19 23:56] VITALS: BP 137/73
[2020-01-20] VITALS (7 sets, daily range): BP systolic 123–184; BP diastolic 57–102
[2020-01-20] MEDS: INSULIN REGULAR VIAL 100 UNIT in IV NORMAL SALINE 100ML 100 ML IV PRN ×2 (00:02→06:25)
[2020-01-20] MEDS: CYCLOBENZAPRINE 10 MG TABLET. PO PRN ×2 (08:07→21:00)
[2020-01-20] MEDS: KETOROLAC 30 MG/ML VIAL. IVP PRN (08:08)
[2020-01-20] MEDS: diphenhydrAMINE HCL 25 MG CAPSULE PO PRN ×2 (08:24→21:00)
[2020-01-20] MEDS ORDERED: traMADol 50 MG TABLET PO PRN (11:15)
[2020-01-20] MEDS ORDERED: ONDANSETRON ODT 4 MG TAB.RAPDIS. PO PRN (11:15)
[2020-01-20] MEDS ORDERED: NON FORMULARY ITEM (Albuterol Sulfate (Albuterol Sulfate Conc Neb Soln) 2.5 MG) NEB PRN (11:15)
[2020-01-20] MEDS ORDERED: DEXTROSE 50% 25 GM / 50ML DISP.SYRIN. IV PRN (11:15)
--- NOTE | 2020-01-20 11:21 | PDOC ---
PROGRESS NOTES Chief Complaint Chief Complaint acute metabolic encephalopathy hyperglycemia, lactic acidosis, leukocytosis, hyponatremia. headache diarrhea symptoms possible to be COVID -19, admit during the pandemic DM2, poor control, very large doses of insulin leg pain, back pain, back spasm obese, BMI 36 History of Present Illness History of Present Illness still weakn will give IV fluid, home meds resovled, cont current try OOB, will DC the insulin gtt Vitals Vitals Vital Signs Date Time Temp Pulse Resp B/P (MAP) Pulse Ox O2 Delivery O2 Flow Rate FiO2 01/20/20 07:00 98.6 95 16 143/57 (85) 92 Room Air 98.6 01/19/20 12:28 2.0 Physical Exam General: Alert, No acute distress Heart: Regular rate Lungs: Clear, Other Abdomen: Soft Extremities: No cyanosis, No edema Skin: No rashes Labs LABS Laboratory Tests Test 01/19/20 12:00 01/19/20 13:19 01/19/20 14:26 01/19/20 15:33 Glucose (Fingerstick) 394 mg/dL (70-99) 356 mg/dL (70-99) 364 mg/dL (70-99) Lactic Acid Level 1.1 mmol/L (0.4-2.0) Test 01/19/20 16:32 01/19/20 17:33 01/19/20 18:35 01/19/20 19:29 Glucose (Fingerstick) 419 mg/dL (70-99) 348 mg/dL (70-99) 312 mg/dL (70-99) 295 mg/dL (70-99) Test 01/19/20 20:53 01/19/20 22:05 01/19/20 23:10 01/20/20 00:23 Glucose (Fingerstick) 242 mg/dL (70-99) 207 mg/dL (70-99) 218 mg/dL (70-99) 251 mg/dL (70-99) Test 01/20/20 01:28 01/20/20 02:55 01/20/20 04:01 01/20/20 05:06 Glucose (Fingerstick) 301 mg/dL (70-99) 213 mg/dL (70-99) 147 mg/dL (70-99) 124 mg/dL (70-99) Test 01/20/20 06:22 01/20/20 07:27 01/20/20 08:28 01/20/20 09:34 Glucose (Fingerstick) 164 mg/dL (70-99) 192 mg/dL (70-99) 247 mg/dL (70-99) 249 mg/dL (70-99) Test 01/20/20 10:30 01/20/20 11:11 Glucose (Fingerstick) 197 mg/dL (70-99) 211 mg/dL (70-99) Assessment and Plan Assessmemt and Plan Problems Medical Problems: (1) Cellulitis Status: Acute Comment Review of Relevant I have reviewed the following items emery (where applicable) has been applied. Labs Laboratory Tests Test 01/19/20 09:47 01/19/20 09:55 01/19/20 10:00 01/19/20 10:42 Glucose (Fingerstick) 449 mg/dL (70-99) 407 mg/dL (70-99) White Blood Count 12.5 x10^3/uL (4.0-11.0) Red Blood Count 5.26 x10^6/uL (3.50-5.40) Hemoglobin 14.2 g/dL (12.0-15.5) Hematocrit 43.9 % (36.0-47.0) Mean Corpuscular Volume 83 fL (79-100) Mean Corpuscular Hemoglobin 27 pg (25-35) Mean Corpuscular Hemoglobin Concent 32 g/dL (31-37) Red Cell Distribution Width 15.4 % (11.5-14.5) Platelet Count 329 x10^3/uL (140-400) Neutrophils (%) (Auto) 70 % (31-73) Lymphocytes (%) (Auto) 22 % (24-48) Monocytes (%) (Auto) 5 % (0-9) Eosinophils (%) (Auto) 2 % (0-3) Basophils (%) (Auto) 1 % (0-3) Neutrophils # (Auto) 8.7 x10^3/uL (1.8-7.7) Lymphocytes # (Auto) 2.8 x10^3/uL (1.0-4.8) Monocytes # (Auto) 0.7 x10^3/uL (0.0-1.1) Eosinophils # (Auto) 0.2 x10^3/uL (0.0-0.7) Basophils # (Auto) 0.1 x10^3/uL (0.0-0.2) Sodium Level 135 mmol/L (136-145) Potassium Level 3.7 mmol/L (3.5-5.1) Chloride Level 94 mmol/L (98-107) Carbon Dioxide Level 29 mmol/L (21-32) Anion Gap 12 (6-14) Blood Urea Nitrogen 17 mg/dL (7-20) Creatinine 1.1 mg/dL (0.6-1.0) Estimated GFR (Cockcroft-Gault) 53.5 BUN/Creatinine Ratio 15 (6-20) Glucose Level 464 mg/dL (70-99) Lactic Acid Level 2.5 mmol/L (0.4-2.0) Calcium Level 9.6 mg/dL (8.5-10.1) Magnesium Level 1.6 mg/dL (1.8-2.4) Total Bilirubin 0.4 mg/dL (0.2-1.0) Aspartate Amino Transf (AST/SGOT) 18 U/L (15-37) Alanine Aminotransferase (ALT/SGPT) 31 U/L (14-59) Alkaline Phosphatase 161 U/L (46-116) Troponin I Quantitative < 0.017 ng/mL (0.000-0.055) Total Protein 8.4 g/dL (6.4-8.2) Albumin 3.7 g/dL (3.4-5.0) Albumin/Globulin Ratio 0.8 (1.0-1.7) Lipase 68 U/L (73-393) Acetone Level Neg (NEG) Urine Collection Type Unknown Urine Color Yellow Urine Clarity Clear Urine pH 5.5 (<5.0-8.0) Urine Specific [place] >=1.030 (1.000-1.030) Urine Protein 100 mg/dL (NEG-TRACE) Urine Glucose (UA) >=1000 mg/dL (NEG) Urine Ketones (Stick) Trace mg/dL (NEG) Urine Blood Moderate (NEG) Urine Nitrite Negative (NEG) Urine Bilirubin Negative (NEG) Urine Urobilinogen Dipstick 0.2 mg/dL (0.2 mg/dL) Urine Leukocyte Esterase Negative (NEG) Urine RBC 20-40 /HPF (0-2) Urine WBC 0 /HPF (0-4) Urine Squamous Epithelial Cells Mod /LPF Urine Bacteria Moderate /HPF (0-FEW) Test 01/19/20 12:00 01/19/20 13:19 01/19/20 14:26 01/19/20 15:33 Glucose (Fingerstick) 394 mg/dL (70-99) 356 mg/dL (70-99) 364 mg/dL (70-99) Lactic Acid Level 1.1 mmol/L (0.4-2.0) Test 01/19/20 16:32 01/19/20 17:33 01/19/20 18:35 01/19/20 19:29 Glucose (Fingerstick) 419 mg/dL (70-99) 348 mg/dL (70-99) 312 mg/dL (70-99) 295 mg/dL (70-99) Test 01/19/20 20:53 01/19/20 22:05 01/19/20 23:10 01/20/20 00:23 Glucose (Fingerstick) 242 mg/dL (70-99) 207 mg/dL (70-99) 218 mg/dL (70-99) 251 mg/dL (70-99) Test 01/20/20 01:28 01/20/20 02:55 01/20/20 04:01 01/20/20 05:06 Glucose (Fingerstick) 301 mg/dL (70-99) 213 mg/dL (70-99) 147 mg/dL (70-99) 124 mg/dL (70-99) Test 01/20/20 06:22 01/20/20 07:27 01/20/20 08:28 01/20/20 09:34 Glucose (Fingerstick) 164 mg/dL (70-99) 192 mg/dL (70-99) 247 mg/dL (70-99) 249 mg/dL (70-99) Test 01/20/20 10:30 01/20/20 11:11 Glucose (Fingerstick) 197 mg/dL (70-99) 211 mg/dL (70-99) Laboratory Tests Test 01/19/20 12:00 01/19/20 13:19 01/19/20 14:26 01/19/20 15:33 Glucose (Fingerstick) 394 mg/dL (70-99) 356 mg/dL (70-99) 364 mg/dL (70-99) Lactic Acid Level 1.1 mmol/L (0.4-2.0) Test 01/19/20 16:32 01/19/20 17:33 01/19/20 18:35 01/19/20 19:29 Glucose (Fingerstick) 419 mg/dL (70-99) 348 mg/dL (70-99) 312 mg/dL (70-99) 295 mg/dL (70-99) Test 01/19/20 20:53 01/19/20 22:05 01/19/20 23:10 01/20/20 00:23 Glucose (Fingerstick) 242 mg/dL (70-99) 207 mg/dL (70-99) 218 mg/dL (70-99) 251 mg/dL (70-99) Test 01/20/20 01:28 01/20/20 02:55 01/20/20 04:01 01/20/20 05:06 Glucose (Fingerstick) 301 mg/dL (70-99) 213 mg/dL (70-99) 147 mg/dL (70-99) 124 mg/dL (70-99) Test 01/20/20 06:22 01/20/20 07:27 01/20/20 08:28 01/20/20 09:34 Glucose (Fingerstick) 164 mg/dL (70-99) 192 mg/dL (70-99) 247 mg/dL (70-99) 249 mg/dL (70-99) Test 01/20/20 10:30 01/20/20 11:11 Glucose (Fingerstick) 197 mg/dL (70-99) 211 mg/dL (70-99) Medications Current Medications Sodium Chloride 1,000 ml @ 1,000 mls/hr 1X ONCE IV Last administered on 01/19/20at 10:09; Start 01/19/20 at 10:00; Stop 01/19/20 at 10:59; Status DC Ondansetron HCl (Zofran) 4 mg 1X ONCE IVP Last administered on 01/19/20at 10:14; Start 01/19/20 at 10:00; Stop 01/19/20 at 10:05; Status DC Fentanyl Citrate (Fentanyl 2ml Vial) 50 mcg 1X ONCE IVP Last administered on 01/19/20at 10:14; Start 01/19/20 at 10:00; Stop 01/19/20 at 10:05; Status DC Ondansetron HCl (Zofran) 4 mg 1X ONCE IVP Last administered on 01/19/20at 10:46; Start 01/19/20 at 10:00; Stop 01/19/20 at 10:05; Status DC Sodium Chloride 1,000 ml @ 1,000 mls/hr 1X ONCE IV Last administered on 01/19/20at 10:44; Start 01/19/20 at 11:00; Stop 01/19/20 at 11:59; Status DC Iohexol (Omnipaque 300 Mg/ml) 60 ml 1X ONCE IV Last administered on 01/19/20 11:50; Start 01/19/20 at 11:30; Stop 01/19/20 at 11:31; Status DC Info (CONTRAST GIVEN -- Rx MONITORING) 1 each PRN DAILY PRN MC SEE COMMENTS; Start 01/19/20 at 11:30; Stop 01/21/20 at 11:29 Ceftriaxone Sodium (Rocephin) 1 gm DAILY IVP Last administered on 01/19/20 17:05; Start 01/19/20 at 13:00 Insulin Human Regular 100 unit/ Sodium Chloride 101 ml @ 0 mls/hr CONT PRN IV SEE I/O RECORD Last administered on 01/20/20 06:25; Start 01/19/20 at 15:30 Pharmacy Consult (C.diff Med Screen By Rx) 1 each 1X ONCE MC Last administered on 01/19/20at 16:45; Start 01/19/20 at 16:45; Stop 01/19/20 at 16:49; Status DC Ketorolac Tromethamine (Toradol 30mg Vial) 30 mg PRN Q8HRS PRN IVP PAIN Last administered on 01/20/20 08:08; Start 01/19/20 at 17:30; Stop 01/24/20 at 17:29 Cyclobenzaprine HCl (Flexeril) 10 mg PRN Q8HRS PRN PO MUSCLE SPASMS Last administered on 01/20/20 08:07; Start 01/19/20 at 17:30 Diphenhydramine HCl (Benadryl) 25 mg PRN Q8HRS PRN PO ITCHING Last administered on 01/20/20at 08:24; Start 01/19/20 at 19:30 Active Scripts Active Hydrocodone-Acetamin 7.5-325 (Hydrocodone/Acetaminophen) 1 Each Tablet 1 Each PO PRN Q6HRS PRN 6 Days Metoprolol Tartrate 25 Mg Tablet 12.5 Mg PO BID 30 Days Zofran Odt (Ondansetron) 4 Mg Tab.rapdis 1 Tab SL Q8HRS PRN Diltiazem 24Hr Cd (Diltiazem HCl) 180 Mg Cap.er.24h 180 Mg PO DAILY Reported Hydroxyzine Pamoate 50 Mg Capsule 50 Mg PO HS Klonopin (Clonazepam) 0.5 Mg Tablet 0.5 Mg PO TID Tramadol Hcl 50 Mg Tablet 50 Mg PO Q6HRS PRN Eliquis (Apixaban) 5 Mg Tablet 5 Mg PO BID Acetazolamide 250 Mg Tablet 250 Mg PO BID Fluticasone Propionate Nasal [place] (Fluticasone Propionate) 16 Gm [place].susp 2 Spr MANDIE BID Clonidine Hcl 0.1 Mg Tablet 1 Tab PO BID Topiramate 25 Mg Tablet 1 Tab PO BID Lantus Solostar (Insulin Glargine,Hum.rec.anlog) 100 Unit/1 Ml Insuln.pen 50 Unit SQ BID Humalog (Insulin Lispro) 100 Unit/1 Ml Cartridge 55 Unit SQ TIDWMEALS Trazodone Hcl 50 Mg Tablet 50 Mg PO HS Aspirin Ec (Aspirin) 81 Mg Tablet.dr 81 Mg PO DAILY Gabapentin 800 Mg Tablet 800 Mg PO QID Omeprazole 40 Mg Capsule.dr 40 Mg PO DAILY Iron (Ferrous Sulfate) 325 Mg Tablet 325 Mg PO DAILY Lexapro (Escitalopram Oxalate) 5 Mg Tablet 5 Mg PO DAILY Fexofenadine Hcl 180 Mg Tablet 180 Mg PO DAILY Albuterol Sulfate Conc Neb Soln (Albuterol Sulfate) 2.5 Mg/0.5 Ml Vial.neb 2.5 Mg NEB Q4HRS PRN Simvastatin 40 Mg Tablet 40 Mg PO HS Symbicort 160-4.5 Mcg Inhaler (Budesonide/Formoterol Fumarate) 10.2 Gm Hfa.aer.ad 2 Puff IH BID Vitals/I & O Vital Sign - Last 24 Hours 01/19/20 01/19/20 01/19/20 5/4/20 11:18 11:57 12:28 14:01 Pulse 98 97 97 93 Resp 16 18 18 B/P (MAP) 147/67 (93) 128/67 (87) 160/70 (100) Pulse Ox 98 99 94 99 O2 Delivery Nasal Cannula Nasal Cannula Nasal Cannula Room Air O2 Flow Rate 2.0 2.0 2.0 01/19/20 01/19/20 01/19/20 01/20/20 14:30 19:00 23:56 03:50 Temp 98.4 98.2 98.1 98.9 98.4 98.2 98.1 98.9 Pulse 94 106 98 100 Resp 12 16 20 B/P (MAP) 145/79 (101) 124/75 (91) 137/73 (94) 123/73 (90) Pulse Ox 94 94 96 O2 Delivery Room Air Room Air Room Air Room Air 01/20/20 07:00 Temp 98.6 98.6 Pulse 95 Resp 16 B/P (MAP) 143/57 (85) Pulse Ox 92 O2 Delivery Room Air Intake and Output 01/19/20 01/19/20 01/20/20 15:00 23:00 07:00 Intake Total 76872 ml 520 ml Balance 76738 ml 520 ml SHAHEED ACOSTA MD January 20, 2020 11:20
[2020-01-20] MEDS ORDERED: ANTI-COAG MONITOR BY PHARMACY. MC PRN (11:45)
[2020-01-20] MEDS: cloNIDine HCL 0.1 MG TABLET PO SCH ×2 (12:00→21:00)
[2020-01-20] MEDS: FLUTICASONE 50MCG/NASAL SPRAY 16GM BOTTLE. NS SCH ×2 (12:00→21:00)
--- NOTE | 2020-01-20 12:42 | NUR ---
SS following up with discharge planning. SS discussed with pt RN. Pt getting IV insulin. Pt being tested for COVID19 and transferring to ICU 114 today. SS will continue to follow for discharge planning.
[2020-01-20] MEDS ORDERED: ALBUTEROL SULFATE 2.5 MG/3 ML NEBU. NEB PRN ×2 (13:00→16:30)
[2020-01-20] MEDS: IV NORMAL SALINE 1000ML BAG 1,000 ML IV ONE ×2 (13:03→14:46)
[2020-01-20] MEDS: cefTRIAXone IV Push 1 GM VIAL. IVP SCH (13:03)
[2020-01-20] MEDS: GABAPENTIN 400 MG CAPSULE. PO SCH ×3 (13:04→21:00)
[2020-01-20] MEDS: ASPIRIN ENTERIC COATED 81 MG TABLET.DR. PO SCH (13:04)
[2020-01-20] MEDS: oxyCODONE/APAP 5/325 1 TAB TABLET PO PRN (13:07)
[2020-01-20] MEDS: APIXABAN 5 MG TABLET. PO SCH ×2 (13:09→21:00)
[2020-01-20] MEDS: clonazePAM 0.5 MG TABLET PO SCH ×2 (13:09→21:00)
[2020-01-20] MEDS: TOPIRAMATE 25 MG TABLET. PO SCH ×2 (13:09→21:00)
[2020-01-20] MEDS: METOPROLOL TART IMMED RELEASE 25 MG TABLET. PO SCH ×2 (13:09→21:00)
[2020-01-20] MEDS: INSULIN LISPRO 300 UNITS/3 ML VIAL. SQ SCH ×3 (14:10→17:36)
--- NOTE | 2020-01-20 14:50 | NUR ---
Wound Care Received wound care consult re: a scabbed navel. Spoke with TAYLOR Hernandez, who stated area was not draining. WCRNs will re-evaluate after COVID test results.
--- NOTE | 2020-01-20 14:52 | NUR ---
Patient transferred to room 114 via wheelchair at 1430.
[2020-01-20] MEDS: fentaNYL PF VIAL 100 MCG/2 ML VIAL IVP PRN ×2 (15:30→21:00)
[2020-01-20] MEDS ORDERED: ALBUTEROL SULFATE 2.5 MG/3 ML NEBU. NEB SCH (16:00)
[2020-01-20] MEDS ORDERED: BUDESONIDE 0.5 MG/2 ML NEBU. NEB PRN (16:30)
--- NOTE | 2020-01-20 17:56 | NUR ---
Dr. Kelly notified of blood glucose of 424, ordered to administer 70 units of Humalog. Patient currently eating dinner. Will continue to monitor.
[2020-01-20] MEDS ORDERED: BUDESONIDE 0.5 MG/2 ML NEBU. NEB SCH (20:00)
--- NOTE | 2020-01-20 20:30 | NUR ---
PT'S TOP OF RIGHT HAND IS ITCHY, PUFFY AND PINK. PT ASKED FOR BENADRYL. ADMIN. PO BENADRYL. LCRN
[2020-01-20] MEDS: ATORVASTATIN CALCIUM 20 MG TABLET PO SCH (21:00)
[2020-01-20] MEDS: INSULIN GLARGINE SYRINGE. SQ SCH (21:00)
[2020-01-20] MEDS ORDERED: NON FORMULARY ITEM (Budesonide/Formoterol Fumarate (Symbicort 160-4.5 Mcg Inhaler) 2 PUFF) IH SCH (21:00)
[2020-01-20] MEDS: traZODone 50 MG TABLET. PO SCH (21:00)
[2020-01-21] MEDS: fentaNYL PF VIAL 100 MCG/2 ML VIAL IVP PRN ×3 (01:00→15:52)
[2020-01-21] MEDS: oxyCODONE/APAP 5/325 1 TAB TABLET PO PRN ×3 (01:00→21:16)
[2020-01-21] MEDS: cefTRIAXone IV Push 1 GM VIAL. IVP SCH (02:00)
[2020-01-21 03:00] VITALS: BP 126/55
[2020-01-21 06:56] VITALS: BP 120/65
[2020-01-21] MEDS: CITALOPRAM 10 MG TABLET. PO SCH (08:28)
[2020-01-21] MEDS: GABAPENTIN 400 MG CAPSULE. PO SCH ×4 (08:28→21:04)
[2020-01-21] MEDS: TOPIRAMATE 25 MG TABLET. PO SCH ×2 (08:28→21:05)
[2020-01-21] MEDS: cloNIDine HCL 0.1 MG TABLET PO SCH ×2 (08:30→21:08)
[2020-01-21] MEDS: METOPROLOL TART IMMED RELEASE 25 MG TABLET. PO SCH ×2 (08:30→21:09)
[2020-01-21] MEDS: APIXABAN 5 MG TABLET. PO SCH ×2 (08:30→21:05)
[2020-01-21] MEDS: clonazePAM 0.5 MG TABLET PO SCH ×3 (08:30→21:04)
[2020-01-21] MEDS: INSULIN LISPRO 300 UNITS/3 ML VIAL. SQ SCH ×6 (08:35→17:48)
[2020-01-21] MEDS: FLUTICASONE 50MCG/NASAL SPRAY 16GM BOTTLE. NS SCH ×2 (09:00→21:47)
[2020-01-21] MEDS: ASPIRIN ENTERIC COATED 81 MG TABLET.DR. PO SCH (09:00)
[2020-01-21 11:00] VITALS: BP 99/65
--- NOTE | 2020-01-21 11:04 | NUR ---
SS following up with discharge planning. SS discussed with RNAngelique. Pt is currently requiring oxygen. Per RN, pt is COVID19 positive. SS will continue to follow for discharge planning. Addendum: 01/21/20 at 1539 by JANIE CRAWFORD SS CORRECTION TO PREVIOUS NOTE: Per notes, pt COVID19 negative.
[2020-01-21] MEDS: INSULIN GLARGINE SYRINGE. SQ SCH ×2 (12:08→21:51)
--- NOTE | 2020-01-21 13:15 | NUR ---
Dr Frances notified of the covid result. orders received to transfer off covid floor to a medical floor.
--- NOTE | 2020-01-21 14:32 | PDOC ---
PROGRESS NOTES Chief Complaint Chief Complaint acute metabolic encephalopathy resolved covid 19 negative abdominal pain secondary to gastroparesis? hyperglycemia improved lactic acidosis resolved leukocytosis, pseudohyponatremia secondary to hyperglycemia headache diarrhea DM2, poor control, very large doses of insulin leg pain, back pain, back spasm chronic pain syndrome on chronic narcotic Rx obese, BMI 36 Plan: continue with current insulin orders adjust as necessary reeval in the am may benefit from a gastric emptying study before initiating reglan for symptoms control History of Present Illness History of Present Illness No acute events reported overnight, case discussed with nursing staff patient in no acute distress no complaints during my visit Vitals Vitals Vital Signs Date Time Temp Pulse Resp B/P (MAP) Pulse Ox O2 Delivery O2 Flow Rate FiO2 01/21/20 12:01 99 Nasal Cannula 2.0 01/21/20 08:30 80 120/65 01/21/20 08:14 97.7 97.7 01/21/20 06:56 18 Physical Exam General: Alert, No acute distress Heart: Regular rate Lungs: Clear, Other Abdomen: Soft Extremities: No cyanosis, No edema Skin: No rashes Labs LABS Laboratory Tests Test 01/20/20 17:13 01/20/20 19:11 01/20/20 21:18 01/21/20 08:22 Glucose (Fingerstick) 424 mg/dL (70-99) 391 mg/dL (70-99) 309 mg/dL (70-99) 312 mg/dL (70-99) Test 01/21/20 12:03 Glucose (Fingerstick) 196 mg/dL (70-99) Assessment and Plan Assessmemt and Plan Problems Medical Problems: (1) Cellulitis Status: Acute Comment Review of Relevant I have reviewed the following items emery (where applicable) has been applied. Labs Laboratory Tests Test 01/19/20 15:33 01/19/20 16:32 01/19/20 17:33 01/19/20 18:35 Glucose (Fingerstick) 364 mg/dL (70-99) 419 mg/dL (70-99) 348 mg/dL (70-99) 312 mg/dL (70-99) Test 01/19/20 19:29 01/19/20 20:53 01/19/20 22:05 01/19/20 23:10 Glucose (Fingerstick) 295 mg/dL (70-99) 242 mg/dL (70-99) 207 mg/dL (70-99) 218 mg/dL (70-99) Test 01/20/20 00:23 01/20/20 01:28 01/20/20 02:55 01/20/20 04:01 Glucose (Fingerstick) 251 mg/dL (70-99) 301 mg/dL (70-99) 213 mg/dL (70-99) 147 mg/dL (70-99) Test 01/20/20 05:06 01/20/20 06:22 01/20/20 07:27 01/20/20 08:28 Glucose (Fingerstick) 124 mg/dL (70-99) 164 mg/dL (70-99) 192 mg/dL (70-99) 247 mg/dL (70-99) Test 01/20/20 09:34 01/20/20 10:30 01/20/20 11:11 01/20/20 12:30 Glucose (Fingerstick) 249 mg/dL (70-99) 197 mg/dL (70-99) 211 mg/dL (70-99) Coronavirus (COVID-19)(PCR) See separate report Test 01/20/20 17:13 01/20/20 19:11 01/20/20 21:18 01/21/20 08:22 Glucose (Fingerstick) 424 mg/dL (70-99) 391 mg/dL (70-99) 309 mg/dL (70-99) 312 mg/dL (70-99) Test 01/21/20 12:03 Glucose (Fingerstick) 196 mg/dL (70-99) Laboratory Tests Test 01/20/20 17:13 01/20/20 19:11 01/20/20 21:18 01/21/20 08:22 Glucose (Fingerstick) 424 mg/dL (70-99) 391 mg/dL (70-99) 309 mg/dL (70-99) 312 mg/dL (70-99) Test 01/21/20 12:03 Glucose (Fingerstick) 196 mg/dL (70-99) Microbiology 01/19/20 Urine Culture - Final, Complete 01/19/20 Urine Culture Result 1 (ERWIN) - Final, Complete 01/19/20 Antimicrobic Susceptibility - Final, Complete Medications Current Medications Sodium Chloride 1,000 ml @ 1,000 mls/hr 1X ONCE IV Last administered on 01/19/20at 10:09; Start 01/19/20 at 10:00; Stop 01/19/20 at 10:59; Status DC Ondansetron HCl (Zofran) 4 mg 1X ONCE IVP Last administered on 01/19/20at 10:14; Start 01/19/20 at 10:00; Stop 01/19/20 at 10:05; Status DC Fentanyl Citrate (Fentanyl 2ml Vial) 50 mcg 1X ONCE IVP Last administered on 01/19/20at 10:14; Start 01/19/20 at 10:00; Stop 01/19/20 at 10:05; Status DC Ondansetron HCl (Zofran) 4 mg 1X ONCE IVP Last administered on 01/19/20at 10:46; Start 01/19/20 at 10:00; Stop 01/19/20 at 10:05; Status DC Sodium Chloride 1,000 ml @ 1,000 mls/hr 1X ONCE IV Last administered on 01/19/20at 10:44; Start 01/19/20 at 11:00; Stop 01/19/20 at 11:59; Status DC Iohexol (Omnipaque 300 Mg/ml) 60 ml 1X ONCE IV Last administered on 01/19/20at 11:50; Start 01/19/20 at 11:30; Stop 01/19/20 at 11:31; Status DC Info (CONTRAST GIVEN -- Rx MONITORING) 1 each PRN DAILY PRN MC SEE COMMENTS; Start 01/19/20 at 11:30; Stop 01/21/20 at 11:29; Status DC Ceftriaxone Sodium (Rocephin) 1 gm DAILY IVP Last administered on 01/21/20at 02:00; Start 01/19/20 at 13:00; Stop 01/21/20 at 13:42; Status DC Insulin Human Regular 100 unit/ Sodium Chloride 101 ml @ 0 mls/hr CONT PRN IV SEE I/O RECORD Last administered on 01/20/20at 06:25; Start 01/19/20 at 15:30 Pharmacy Consult (C.diff Med Screen By Rx) 1 each 1X ONCE MC Last administered on 01/19/20at 16:45; Start 01/19/20 at 16:45; Stop 01/19/20 at 16:49; Status DC Ketorolac Tromethamine (Toradol 30mg Vial) 30 mg PRN Q8HRS PRN IVP MILD - MODERATE PAIN Last administered on 01/20/20 08:08; Start 01/19/20 at 17:30; Stop 01/24/20 at 17:29 Cyclobenzaprine HCl (Flexeril) 10 mg PRN Q8HRS PRN PO MUSCLE SPASMS Last administered on 01/20/20 21:00; Start 01/19/20 at 17:30 Diphenhydramine HCl (Benadryl) 25 mg PRN Q8HRS PRN PO ITCHING Last administered on 01/20/20 21:00; Start 01/19/20 at 19:30 Apixaban (Eliquis) 5 mg BID PO Last administered on 01/21/20 08:30; Start 01/20/20 at 12:00 Aspirin (Ecotrin) 81 mg DAILY PO Last administered on 01/21/20 09:00; Start 01/20/20 at 12:00 Clonazepam (KlonoPIN) 0.5 mg TID PO Last administered on 01/21/20 08:30; Start 01/20/20 at 14:00 Clonidine HCl (Catapres) 0.1 mg BID PO Last administered on 01/21/20 08:30; Start 01/20/20 at 12:00 Diltiazem HCl (Cardizem 24hr Cd) 180 mg DAILY PO Last administered on 01/21/20 08:28; Start 01/20/20 at 12:00 Fluticasone Propionate (Flonase) 1 spray BID NS Last administered on 01/21/20 09:00; Start 01/20/20 at 12:00 Metoprolol Tartrate (Lopressor) 12.5 mg BID PO Last administered on 01/21/20 08:30; Start 01/20/20 at 12:00 Ondansetron HCl (Zofran Odt) 4 mg PRN Q8HRS PRN PO NAUSEA; Start 01/20/20 at 11:15 Atorvastatin Calcium (Lipitor) 20 mg QHS PO Last administered on 01/20/20 21:00; Start 01/20/20 at 21:00 Topiramate (Topamax) 25 mg BID PO Last administered on 01/21/20 08:28; Start 01/20/20 at 12:00 Tramadol HCl (Ultram) 50 mg PRN Q6HRS PRN PO MILD TO MODERATE PAIN; Start 01/20/20 at 11:15 Trazodone HCl (Desyrel) 50 mg HS PO Last administered on 01/20/20at 21:00; Start 01/20/20 at 21:00 Non-Formulary Medication (Albuterol Sulfate (Albuterol Sulfate Conc Neb Soln)) 2.5 mg Q4HRS PRN NEB SHORTNESS OF BREATH; Start 01/20/20 at 11:15; Status UNV Non-Formulary Medication (Budesonide/ Formoterol Fumarate (Symbicort 160-4.5 Mcg Inhaler)) 2 puff BID IH ; Start 01/20/20 at 21:00; Status UNV Citalopram Hydrobromide (CeleXA) 10 mg DAILY PO Last administered on 01/21/20at 08:28; Start 01/21/20 at 09:00 Gabapentin (Neurontin) 800 mg QID PO Last administered on 01/21/20at 08:28; Start 01/20/20 at 13:00 Sodium Chloride 1,000 ml @ 125 mls/hr 1X ONCE IV Last administered on 01/20/20at 14:46; Start 01/20/20 at 11:15; Stop 01/20/20 at 19:14; Status DC Oxycodone/ Acetaminophen (Percocet 5/325) 1 tab PRN Q4HRS PRN PO MODERATE TO SEVERE PAIN Last administered on 01/21/20at 07:44; Start 01/20/20 at 11:15 Insulin Human Lispro (HumaLOG) 0-9 UNITS TIDWMEALS SQ Last administered on 01/21/20at 12:00; Start 01/20/20 at 12:00 Dextrose (Dextrose 50%-Water Syringe) 12.5 gm PRN Q15MIN PRN IV SEE COMMENTS; Start 01/20/20 at 11:15 Insulin Glargine (Lantus Syringe) 50 unit BID SQ Last administered on 01/21/20at 12:08; Start 01/20/20 at 21:00 Insulin Human Lispro (HumaLOG) 55 units TIDWMEALS SQ Last administered on 01/21/20at 08:36; Start 01/20/20 at 17:00 Info (Anti-Coagulation Monitoring By Pharmacy) 1 each PRN DAILY PRN MC SEE COMMENTS Last administered on 01/21/20at 14:02; Start 01/20/20 at 11:45 Albuterol Sulfate (Ventolin Neb Soln) 2.5 mg PRN Q4HRS PRN NEB SHORTNESS OF BREATH; Start 01/20/20 at 13:00; Stop 01/21/20 at 09:15; Status DC Albuterol Sulfate (Ventolin Neb Soln) 2.5 mg RTQID NEB ; Start 01/20/20 at 16:00; Stop 01/20/20 at 16:32; Status DC Budesonide (Pulmicort) 0.5 mg RTBID NEB ; Start 01/20/20 at 20:00; Stop 01/20/20 at 16:32; Status DC Fentanyl Citrate (Fentanyl 2ml Vial) 50 mcg PRN Q2HR PRN IVP SEVERE PAIN Last administered on 01/21/20at 12:01; Start 01/20/20 at 15:15 Albuterol Sulfate (Ventolin Neb Soln) 2.5 mg PRN QID PRN NEB shortness of breath,1ST CHOICE; Start 01/20/20 at 16:30 Budesonide (Pulmicort) 0.5 mg PRN BID PRN NEB shortness of breath; Start 01/20/20 at 16:30 Lactobacillus Rhamnosus (Culturelle) 1 cap BID PO ; Start 01/21/20 at 21:00 Doxycycline Hyclate (Vibra-Tab) 100 mg BID PO ; Start 01/21/20 at 14:00 Active Scripts Active Hydrocodone-Acetamin 7.5-325 (Hydrocodone/Acetaminophen) 1 Each Tablet 1 Each PO PRN Q6HRS PRN 6 Days Metoprolol Tartrate 25 Mg Tablet 12.5 Mg PO BID 30 Days Zofran Odt (Ondansetron) 4 Mg Tab.rapdis 1 Tab SL Q8HRS PRN Diltiazem 24Hr Cd (Diltiazem HCl) 180 Mg Cap.er.24h 180 Mg PO DAILY Reported Hydroxyzine Pamoate 50 Mg Capsule 50 Mg PO HS Klonopin (Clonazepam) 0.5 Mg Tablet 0.5 Mg PO TID Tramadol Hcl 50 Mg Tablet 50 Mg PO Q6HRS PRN Eliquis (Apixaban) 5 Mg Tablet 5 Mg PO BID Acetazolamide 250 Mg Tablet 250 Mg PO BID Fluticasone Propionate Nasal [place] (Fluticasone Propionate) 16 Gm [place].susp 2 Spr MANDIE BID Clonidine Hcl 0.1 Mg Tablet 1 Tab PO BID Topiramate 25 Mg Tablet 1 Tab PO BID Lantus Solostar (Insulin Glargine,Hum.rec.anlog) 100 Unit/1 Ml Insuln.pen 50 Unit SQ BID Humalog (Insulin Lispro) 100 Unit/1 Ml Cartridge 55 Unit SQ TIDWMEALS Trazodone Hcl 50 Mg Tablet 50 Mg PO HS Aspirin Ec (Aspirin) 81 Mg Tablet.dr 81 Mg PO DAILY Gabapentin 800 Mg Tablet 800 Mg PO QID Omeprazole 40 Mg Capsule.dr 40 Mg PO DAILY Iron (Ferrous Sulfate) 325 Mg Tablet 325 Mg PO DAILY Lexapro (Escitalopram Oxalate) 5 Mg Tablet 5 Mg PO DAILY Fexofenadine Hcl 180 Mg Tablet 180 Mg PO DAILY Albuterol Sulfate Conc Neb Soln (Albuterol Sulfate) 2.5 Mg/0.5 Ml Vial.neb 2.5 Mg NEB Q4HRS PRN Simvastatin 40 Mg Tablet 40 Mg PO HS Symbicort 160-4.5 Mcg Inhaler (Budesonide/Formoterol Fumarate) 10.2 Gm Hfa.aer.ad 2 Puff IH BID Vitals/I & O Vital Sign - Last 24 Hours 01/20/20 01/20/20 01/20/20 01/20/20 14:49 15:30 16:00 19:00 Temp 98.4 98.4 98.4 98.4 Pulse 102 92 Resp 16 B/P (MAP) 184/92 (122) 166/102 (123) 155/77 (103) Pulse Ox 96 100 O2 Delivery Room Air Room Air Room Air Nasal Cannula O2 Flow Rate 3.0 01/20/20 01/20/20 01/20/20 01/20/20 20:00 21:00 21:00 21:30 Temp 98.6 98.6 Pulse 92 92 99 Resp 18 B/P (MAP) 155/77 155/77 163/73 (103) Pulse Ox 100 O2 Delivery Nasal Cannula Nasal Cannula O2 Flow Rate 3.0 9.0 01/20/20 01/20/20 01/21/20 01/21/20 23:00 23:01 03:00 06:56 Temp 98.2 98.0 98.2 98.0 Pulse 88 82 80 Resp 18 20 18 B/P (MAP) 142/68 (92) 126/55 (78) 120/65 (83) Pulse Ox 98 99 99 O2 Delivery Nasal Cannula Nasal Cannula Nasal Cannula O2 Flow Rate 3.0 3.0 3.0 01/21/20 01/21/20 01/21/20 01/21/20 08:00 08:14 08:28 08:30 Temp 97.7 97.7 Pulse 80 80 B/P (MAP) 120/65 120/65 O2 Delivery Nasal Cannula O2 Flow Rate 2.0 01/21/20 01/21/20 01/21/20 08:30 08:45 12:01 Pulse 80 B/P (MAP) 120/65 Pulse Ox 99 99 O2 Delivery Nasal Cannula Nasal Cannula O2 Flow Rate 2.0 2.0 Intake and Output 01/20/20 01/20/20 01/21/20 15:00 23:00 07:00 Intake Total 540 ml 600 ml 1900 ml Balance 540 ml 600 ml 1900 ml TYRELL ALVARADO MD January 21, 2020 14:32
[2020-01-21 15:00] VITALS: BP 98/60
--- NOTE | 2020-01-21 15:03 | NUR ---
IP: Pt is COVID negative.
--- NOTE | 2020-01-21 15:31 | NUR ---
Negative form for covib charted.Cleared by Shelbi Nair. Patient informed of status. Fent earlier after little relief from po meds. Awakns easily but dozes off just as easily. Roxanne(family member ) informed of transfer to room 412. Gastric emptying study will be done 11/21 Patient informed of NPO ststus after 1200
[2020-01-21] MEDS: DOXYCYCLINE HYCLATE 100 MG TABLET PO SCH ×2 (15:55→21:04)
--- NOTE | 2020-01-21 17:10 | NUR ---
trans per w/c from 114-412 Condition stable .
[2020-01-21 19:20] VITALS: BP 120/59
[2020-01-21] MEDS: LACTOBACILLUS RHAMNOSUS GG 1 CAPSULE. PO SCH (21:05)
[2020-01-21] MEDS: traZODone 50 MG TABLET. PO SCH (21:05)
[2020-01-21] MEDS: ATORVASTATIN CALCIUM 20 MG TABLET PO SCH (21:09)
[2020-01-21] MEDS: diphenhydrAMINE HCL 25 MG CAPSULE PO PRN (21:16)
[2020-01-21 23:14] VITALS: BP 118/48
[2020-01-22] MEDS: oxyCODONE/APAP 5/325 1 TAB TABLET PO PRN ×2 (03:25→16:46)
[2020-01-22 03:55] VITALS: BP 135/71
[2020-01-22] MEDS: fentaNYL PF VIAL 100 MCG/2 ML VIAL IVP PRN ×3 (07:56→20:34)
[2020-01-22 07:59] VITALS: BP 112/59
[2020-01-22] MEDS: INSULIN LISPRO 300 UNITS/3 ML VIAL. SQ SCH ×6 (08:00→16:49)
--- NOTE | 2020-01-22 08:36 | PDOC ---
PROGRESS NOTES Chief Complaint Chief Complaint IMPRESSION===== acute metabolic encephalopathy resolved covid 19 negative abdominal pain secondary to gastroparesis? Normal gastric emptying study. 01/21 hyperglycemia improved lactic acidosis resolved hx cervical cancer leukocytosis, pseudohyponatremia secondary to hyperglycemia headache diarrhea DM2, poor control, very large doses of insulin leg pain, back pain, back spasm chronic pain syndrome on chronic narcotic Rx obese, BMI 36 Plan: continue with current insulin orders adjust as necessary reeval in the am gastric emptying study GI CONSULT 01/21 REPORTS CONTINUED NAUSEA AND PAIN History of Present Illness History of Present Illness No acute events reported overnight, case discussed with nursing staff patient in no acute distress //NAUSEA complaint during my visit 38 MIN PT EXAM, CHART REVIEW, > 50% of time spent with exam, chart review, pt care coordination Vitals Vitals Vital Signs Date Time Temp Pulse Resp B/P (MAP) Pulse Ox O2 Delivery O2 Flow Rate FiO2 01/22/20 07:59 98.1 81 18 112/59 (76) 100 Room Air 98.1 01/21/20 15:55 2.0 Physical Exam General: Alert, Oriented X3, Cooperative, No acute distress, mild distress Heart: Regular rate, Normal S1, Normal S2 Lungs: Clear, Other Abdomen: Normal bowel sounds, Soft, No masses Extremities: No clubbing, No cyanosis, No edema Skin: No rashes Labs LABS CT of the chest, abdomen and pelvis without contrast, 10/31/2016: History: Fever, cervical cancer Only oral contrast material was administered as requested. The heart is mildly enlarged. The thoracic aorta is of normal caliber. No mediastinal adenopathy is seen. Parahilar infiltrates seen on the previous study from 08/01/2016 have resolved. There is mild atelectasis posteriorly in both lower lobes. No significant pleural fluid is seen. The liver is of lower than normal density in a diffuse pattern compatible with fatty change. It is enlarged measuring 26 cm in craniocaudad extent. No mass or bile duct dilatation is evident. The gallbladder is unremarkable. No pancreatic abnormality is seen. The spleen is within normal limits in size. There is mild bilateral renal cortical scarring. The kidneys show no evidence of obstruction. The abdominal aorta is of normal caliber. No abdominal or pelvic adenopathy is seen. The uterus is surgically absent. The bowel loops are not dilated. There is mild streaky increased density in the intra-abdominal fat in the pelvic region. There are several small bubbles of gas present related to the anterior abdominal wall at the midline in the pelvic region, presumably due to recent surgery. There is mild subcutaneous edema in the overlying soft tissues at this level. No discrete fluid collection is seen to suggest abscess. IMPRESSION: 1. Mild bibasilar atelectasis. 2. Hepatomegaly with hepatic steatosis. 3. Tiny gas bubbles related to the anterior abdominal wall at the mid pelvic level presumably on a postsurgical basis. There is adjacent streaky inflammation in the subcutaneous fat and within the pelvis, without evidence of a discrete abscess. DICTATED and SIGNED BY: FABRICIO DEL CASTILLO MD DATE: 10/31/16 1411 APPROVED REPORT Test Type: Exercise Stress Nurse/Tech: Geneva Rosas R.N. Test Indications: chest pain Cardiac History: Hypertension, Diabetes, a fib Medications: See Electronic Medical Record Medical History: See Electronic Medical Record Resting ECG: NSR Resting Heart Rate: 89 bpm Resting Blood Pressure: 159/76mmHg Pretest Chest Pain: Atypical angina Nurse/Tech Notes S1S2, lungs sound clear Consent: The procedure was explained to the patient in lay terms. Informed consent was witnessed. Timeout was entered into [employer]. History and Stress Test performed by Geneva Rosas R.N. Pharm. Details Pharmacologic stress testing was performed using 0.4mg per 5ml of regadenoson gi vincent intravenously over 7-10 seconds. Stress Symptoms increase of chest pain from prior to onset of test from 4 to 6 POST EXERCISE Reason for Termination: Infusion complete Target HR: 148 Max HR: 119 bpm Max Blood Pressure: 185/91mmHg Blood Pressure response to exercise: Normal blood pressure response during stress. Chest Pain: Yes. went from 4 to 6 Arrhythmia: No. ST Change: No. INTERPRETATION Stress EKG Conclusion: No evidence of stress induced EKG changes. Imaging Protocol IMAGE PROTOCOL: Rest Tc-99m/stress Tc-99m 2 days Rest: Stress: Viability: Radiopharm. Tc99m Sestamibi Dose 31.1mCi Duration 14.5min. Img Date 04/30/2018 Inj-Img Time 75min. Rest Admin Site: [employer] Operator: MÓNICA Cooper STRESS DATA End Diast. Vol. 91.0ml Av. Heart Rate 104.0bpm LVEDV index BSA 46.0ml Cardiac Output 2.5L/min End Syst. Vol. 44.0ml CO Index BSA 4.9L/min LVESV index BSA 22.0ml Myocardial Mass 132.0g Eject. Fraction 52.0% Stress Scores Regional WT 2.00 Summed WT 17.00 Regional WM 0.00 Summed WM 10.00 LV Perfusion Suboptimal nuclear images on stress portion do not demonstrate a significant perfusion defect. Wall Motion Grossly normal wall motion. Ef 55% LV Perf. Quant 17 Seg. SSS 6.00 Stress Defect Extent (% LAD) 0.00 Rest Defect Extent (% LAD) Rev. Defect Extent (% LAD) 0.00 Stress Defect Extent (% LCX) 68.80 Rest Defect Extent (% LCX) Rev. Defect Extent (% LCX) 0.00 Stress Defect Extent (% RCA) 0.00 Rest Defect Extent (% RCA) Rev. Defect Extent (% RCA) 0.00 Stress Defect Extent (% VANDA) 13.30 Rest Defect Extent (% VANDA) Rev. Defect Extent (% VANDA) 0.00 Other Information Quality:Poor Risk Assessment: Low Risk Conclusion 1. No evidence of stress induced EKG changes. 2. No significant perfusiond defect on stress images. No resting images performed. 3. Normal EF 4. Low risk study 5. Technically difficult study Signed by : Harshal Lal, Electronically Approved : 04/30/2018 13:58:40 IV CONTRAST: Administered ORAL CONTRAST: Not administered COMPARISON: 07/19/[address] with IV contrast FINDINGS: LOWER CHEST: Unremarkable LIVER: Hepatomegaly and steatosis within the liver measuring 26.4 cm in cranial caudal extent. BILIARY SYSTEM: Gallbladder is unremarkable. Bile ducts are not dilated. PANCREAS: Unremarkable SPLEEN: Unremarkable ADRENALS: Unremarkable KIDNEYS & URETERS: Unremarkable BLADDER: Unremarkable REPRODUCTIVE ORGANS: Hysterectomy. GASTROINTESTINAL: The stomach, small bowel, and colon are unremarkable. The appendix is normal. MESENTERY/PERITONEUM/RETROPERITONEUM: Unremarkable VASCULAR: Unremarkable LYMPH NODES: No adenopathy OSSEOUS & SOFT TISSUES: Skin thickening of the umbilicus with fat stranding around the umbilicus is present. This is new from the previous examination. This surrounds a similar sized tiny (9 mm) fat containing umbilical hernia. IMPRESSION: 1. Hepatomegaly and hepatic steatosis. Correlate for any evidence of steatohepatitis. 2. Skin thickening and subcutaneous fat stranding around the umbilicus could reflect cellulitis in the appropriate clinical context. Correlate with the physical exam. 3. No evidence of acute appendicitis or other acute findings in the abdomen or pelvis following previous hysterectomy. Electronically signed by: Ruben Castorena MD (01/19/2020 12:00 PM) [id number] Examination: Gastric Emptying Study History:: Nausea, abdominal pain for one week Procedure: Serial static images are obtained over the stomach following oral administration of 2 mCi of 99 M technetium sulfur colloid in a solid meal. Findings: The stomach empties normally into the small bowel without evidence of reflux in the area the esophagus. The gastric emptying half time is 60 minutes (normal is 66 +/- 22 minutes). Retention 120 minutes is 6%. Impression: Normal gastric emptying study. Electronically signed by: Tony Trivedi MD (01/22/2020 11:13 AM) [id number] DICTATED and SIGNED BY: TONY TRIVEDI MD Laboratory Tests Test 01/21/20 12:03 01/21/20 17:39 01/21/20 20:53 01/22/20 08:11 Glucose (Fingerstick) 196 mg/dL (70-99) 150 mg/dL (70-99) 245 mg/dL (70-99) 335 mg/dL (70-99) Assessment and Plan Assessmemt and Plan Problems Medical Problems: (1) Cellulitis Status: Acute Comment Review of Relevant I have reviewed the following items emery (where applicable) has been applied. Labs Laboratory Tests Test 01/20/20 09:34 01/20/20 10:30 01/20/20 11:11 01/20/20 12:30 Glucose (Fingerstick) 249 mg/dL (70-99) 197 mg/dL (70-99) 211 mg/dL (70-99) Coronavirus (COVID-19)(PCR) See separate report Test 01/20/20 17:13 01/20/20 19:11 01/20/20 21:18 01/21/20 08:22 Glucose (Fingerstick) 424 mg/dL (70-99) 391 mg/dL (70-99) 309 mg/dL (70-99) 312 mg/dL (70-99) Test 01/21/20 12:03 01/21/20 17:39 01/21/20 20:53 01/22/20 08:11 Glucose (Fingerstick) 196 mg/dL (70-99) 150 mg/dL (70-99) 245 mg/dL (70-99) 335 mg/dL (70-99) Laboratory Tests Test 01/21/20 12:03 01/21/20 17:39 01/21/20 20:53 01/22/20 08:11 Glucose (Fingerstick) 196 mg/dL (70-99) 150 mg/dL (70-99) 245 mg/dL (70-99) 335 mg/dL (70-99) Microbiology 01/19/20 Urine Culture - Final, Complete 01/19/20 Urine Culture Result 1 (ERWIN) - Final, Complete 01/19/20 Antimicrobic Susceptibility - Final, Complete Medications Current Medications Sodium Chloride 1,000 ml @ 1,000 mls/hr 1X ONCE IV Last administered on 01/19/20at 10:09; Start 01/19/20 at 10:00; Stop 01/19/20 at 10:59; Status DC Ondansetron HCl (Zofran) 4 mg 1X ONCE IVP Last administered on 01/19/20at 10:14; Start 01/19/20 at 10:00; Stop 01/19/20 at 10:05; Status DC Fentanyl Citrate (Fentanyl 2ml Vial) 50 mcg 1X ONCE IVP Last administered on 01/19/20 10:14; Start 01/19/20 at 10:00; Stop 01/19/20 at 10:05; Status DC Ondansetron HCl (Zofran) 4 mg 1X ONCE IVP Last administered on 01/19/20at 10:46; Start 01/19/20 at 10:00; Stop 01/19/20 at 10:05; Status DC Sodium Chloride 1,000 ml @ 1,000 mls/hr 1X ONCE IV Last administered on 01/19/20at 10:44; Start 01/19/20 at 11:00; Stop 01/19/20 at 11:59; Status DC Iohexol (Omnipaque 300 Mg/ml) 60 ml 1X ONCE IV Last administered on 01/19/20at 11:50; Start 01/19/20 at 11:30; Stop 01/19/20 at 11:31; Status DC Info (CONTRAST GIVEN -- Rx MONITORING) 1 each PRN DAILY PRN MC SEE COMMENTS; Start 01/19/20 at 11:30; Stop 01/21/20 at 11:29; Status DC Ceftriaxone Sodium (Rocephin) 1 gm DAILY IVP Last administered on 01/21/20at 02:00; Start 01/19/20 at 13:00; Stop 01/21/20 at 13:42; Status DC Insulin Human Regular 100 unit/ Sodium Chloride 101 ml @ 0 mls/hr CONT PRN IV SEE I/O RECORD Last administered on 01/20/20at 06:25; Start 01/19/20 at 15:30 Pharmacy Consult (C.diff Med Screen By Rx) 1 each 1X ONCE MC Last administered on 01/19/20at 16:45; Start 01/19/20 at 16:45; Stop 01/19/20 at 16:49; Status DC Ketorolac Tromethamine (Toradol 30mg Vial) 30 mg PRN Q8HRS PRN IVP MILD - MODERATE PAIN Last administered on 01/20/20at 08:08; Start 01/19/20 at 17:30; Stop 01/24/20 at 17:29 Cyclobenzaprine HCl (Flexeril) 10 mg PRN Q8HRS PRN PO MUSCLE SPASMS Last administered on 01/20/20at 21:00; Start 01/19/20 at 17:30 Diphenhydramine HCl (Benadryl) 25 mg PRN Q8HRS PRN PO ITCHING Last administered on 01/21/20at 21:16; Start 01/19/20 at 19:30 Apixaban (Eliquis) 5 mg BID PO Last administered on 01/21/20at 21:05; Start 01/20/20 at 12:00 Aspirin (Ecotrin) 81 mg DAILY PO Last administered on 01/21/20at 09:00; Start 01/20/20 at 12:00 Clonazepam (KlonoPIN) 0.5 mg TID PO Last administered on 01/21/20at 21:04; Start 01/20/20 at 14:00 Clonidine HCl (Catapres) 0.1 mg BID PO Last administered on 01/21/20 21:08; Start 01/20/20 at 12:00 Diltiazem HCl (Cardizem 24hr Cd) 180 mg DAILY PO Last administered on 01/21/20 08:28; Start 01/20/20 at 12:00 Fluticasone Propionate (Flonase) 1 spray BID NS Last administered on 01/21/20 21:47; Start 01/20/20 at 12:00 Metoprolol Tartrate (Lopressor) 12.5 mg BID PO Last administered on 01/21/20 21:09; Start 01/20/20 at 12:00 Ondansetron HCl (Zofran Odt) 4 mg PRN Q8HRS PRN PO NAUSEA; Start 01/20/20 at 11:15 Atorvastatin Calcium (Lipitor) 20 mg QHS PO Last administered on 01/21/20 21:09; Start 01/20/20 at 21:00 Topiramate (Topamax) 25 mg BID PO Last administered on 01/21/20 21:05; Start 01/20/20 at 12:00 Tramadol HCl (Ultram) 50 mg PRN Q6HRS PRN PO MILD TO MODERATE PAIN; Start 01/20/20 at 11:15 Trazodone HCl (Desyrel) 50 mg HS PO Last administered on 01/21/20 21:05; Start 01/20/20 at 21:00 Non-Formulary Medication (Albuterol Sulfate (Albuterol Sulfate Conc Neb Soln)) 2.5 mg Q4HRS PRN NEB SHORTNESS OF BREATH; Start 01/20/20 at 11:15; Status UNV Non-Formulary Medication (Budesonide/ Formoterol Fumarate (Symbicort 160-4.5 Mcg Inhaler)) 2 puff BID IH ; Start 01/20/20 at 21:00; Status UNV Citalopram Hydrobromide (CeleXA) 10 mg DAILY PO Last administered on 01/21/20 08:28; Start 01/21/20 at 09:00 Gabapentin (Neurontin) 800 mg QID PO Last administered on 01/21/20 21:04; Start 01/20/20 at 13:00 Sodium Chloride 1,000 ml @ 125 mls/hr 1X ONCE IV Last administered on 5/5/20at 14:46; Start 01/20/20 at 11:15; Stop 01/20/20 at 19:14; Status DC Oxycodone/ Acetaminophen (Percocet 5/325) 1 tab PRN Q4HRS PRN PO MODERATE TO SEVERE PAIN Last administered on 01/22/20 03:25; Start 01/20/20 at 11:15 Insulin Human Lispro (HumaLOG) 0-9 UNITS TIDWMEALS SQ Last administered on 12:00; Start 01/20/20 at 12:00 Dextrose (Dextrose 50%-Water Syringe) 12.5 gm PRN Q15MIN PRN IV SEE COMMENTS; Start 01/20/20 at 11:15 Insulin Glargine (Lantus Syringe) 50 unit BID SQ Last administered on 01/21/20 21:51; Start 01/20/20 at 21:00 Insulin Human Lispro (HumaLOG) 55 units TIDWMEALS SQ Last administered on 01/21/20 17:48; Start 01/20/20 at 17:00 Info (Anti-Coagulation Monitoring By Pharmacy) 1 each PRN DAILY PRN MC SEE COMMENTS Last administered on 01/21/20 14:02; Start 01/20/20 at 11:45 Albuterol Sulfate (Ventolin Neb Soln) 2.5 mg PRN Q4HRS PRN NEB SHORTNESS OF BREATH; Start 01/20/20 at 13:00; Stop 01/21/20 at 09:15; Status DC Albuterol Sulfate (Ventolin Neb Soln) 2.5 mg RTQID NEB ; Start 01/20/20 at 16:00; Stop 01/20/20 at 16:32; Status DC Budesonide (Pulmicort) 0.5 mg RTBID NEB ; Start 01/20/20 at 20:00; Stop 01/20/20 at 16:32; Status DC Fentanyl Citrate (Fentanyl 2ml Vial) 50 mcg PRN Q2HR PRN IVP SEVERE PAIN Last administered on 01/22/20at 07:56; Start 01/20/20 at 15:15 Albuterol Sulfate (Ventolin Neb Soln) 2.5 mg PRN QID PRN NEB shortness of breath,1ST CHOICE; Start 5/5/20 at 16:30 Budesonide (Pulmicort) 0.5 mg PRN BID PRN NEB shortness of breath; Start 01/20/20 at 16:30 Lactobacillus Rhamnosus (Culturelle) 1 cap BID PO Last administered on 01/21/20at 21:05; Start 01/21/20 at 21:00 Doxycycline Hyclate (Vibra-Tab) 100 mg BID PO Last administered on 01/21/20at 21:04; Start 01/21/20 at 14:00 Active Scripts Active Hydrocodone-Acetamin 7.5-325 (Hydrocodone/Acetaminophen) 1 Each Tablet 1 Each PO PRN Q6HRS PRN 6 Days Metoprolol Tartrate 25 Mg Tablet 12.5 Mg PO BID 30 Days Zofran Odt (Ondansetron) 4 Mg Tab.rapdis 1 Tab SL Q8HRS PRN Diltiazem 24Hr Cd (Diltiazem HCl) 180 Mg Cap.er.24h 180 Mg PO DAILY Reported Hydroxyzine Pamoate 50 Mg Capsule 50 Mg PO HS Klonopin (Clonazepam) 0.5 Mg Tablet 0.5 Mg PO TID Tramadol Hcl 50 Mg Tablet 50 Mg PO Q6HRS PRN Eliquis (Apixaban) 5 Mg Tablet 5 Mg PO BID Acetazolamide 250 Mg Tablet 250 Mg PO BID Fluticasone Propionate Nasal [place] (Fluticasone Propionate) 16 Gm [place].susp 2 Spr MANDIE BID Clonidine Hcl 0.1 Mg Tablet 1 Tab PO BID Topiramate 25 Mg Tablet 1 Tab PO BID Lantus Solostar (Insulin Glargine,Hum.rec.anlog) 100 Unit/1 Ml Insuln.pen 50 Unit SQ BID Humalog (Insulin Lispro) 100 Unit/1 Ml Cartridge 55 Unit SQ TIDWMEALS Trazodone Hcl 50 Mg Tablet 50 Mg PO HS Aspirin Ec (Aspirin) 81 Mg Tablet.dr 81 Mg PO DAILY Gabapentin 800 Mg Tablet 800 Mg PO QID Omeprazole 40 Mg Capsule.dr 40 Mg PO DAILY Iron (Ferrous Sulfate) 325 Mg Tablet 325 Mg PO DAILY Lexapro (Escitalopram Oxalate) 5 Mg Tablet 5 Mg PO DAILY Fexofenadine Hcl 180 Mg Tablet 180 Mg PO DAILY Albuterol Sulfate Conc Neb Soln (Albuterol Sulfate) 2.5 Mg/0.5 Ml Vial.neb 2.5 Mg NEB Q4HRS PRN Simvastatin 40 Mg Tablet 40 Mg PO HS Symbicort 160-4.5 Mcg Inhaler (Budesonide/Formoterol Fumarate) 10.2 Gm Hfa.aer.ad 2 Puff IH BID Vitals/I & O Vital Sign - Last 24 Hours 01/21/20 01/21/20 01/21/20 01/21/20 08:45 11:00 12:01 15:00 Pulse 80 82 Resp 20 18 B/P (MAP) 99/65 (76) 98/60 (73) Pulse Ox 99 99 99 O2 Delivery Nasal Cannula Nasal Cannula Nasal Cannula Nasal Cannula O2 Flow Rate 2.0 3.0 2.0 2.0 01/21/20 01/21/20 01/21/20 01/21/20 15:52 15:55 19:20 19:40 Temp 98.9 98.9 Pulse 99 Resp 16 B/P (MAP) 120/59 (79) Pulse Ox 99 99 94 O2 Delivery Nasal Cannula Nasal Cannula Room Air Room Air O2 Flow Rate 2.0 2.0 01/21/20 01/21/20 01/21/20 01/21/20 19:45 21:08 21:09 21:16 Pulse 98 98 B/P (MAP) 118/59 118/59 Pulse Ox 94 O2 Delivery Room Air Room Air 01/21/20 01/21/20 01/22/20 01/22/20 22:16 23:14 03:25 03:55 Temp 98.6 98.3 98.6 98.3 Pulse 94 82 Resp 18 16 16 16 B/P (MAP) 118/48 (71) 135/71 (92) Pulse Ox 95 94 O2 Delivery Room Air Room Air Room Air Room Air 01/22/20 01/22/20 01/22/20 04:25 07:56 07:59 Temp 98.1 98.1 Pulse 81 Resp 18 B/P (MAP) 112/59 (76) Pulse Ox 100 O2 Delivery Room Air Room Air Room Air Intake and Output 01/21/20 01/21/20 01/22/20 15:00 23:00 07:00 Intake Total 1010 ml 440 ml 890 ml Balance 1010 ml 440 ml 890 ml GRAY CAMACHO MD January 22, 2020 08:36
--- NOTE | 2020-01-22 08:52 | NUR ---
SW following. Discussed with RN, pt from home alone,room air, NPO, Gastric emptying study today. Pt is COVID-19 negative. SW will continue to follow.
[2020-01-22] MEDS: FLUTICASONE 50MCG/NASAL SPRAY 16GM BOTTLE. NS SCH ×2 (08:54→20:35)
[2020-01-22] MEDS: GABAPENTIN 400 MG CAPSULE. PO SCH ×4 (08:55→20:11)
[2020-01-22] MEDS: clonazePAM 0.5 MG TABLET PO SCH ×3 (08:55→20:12)
[2020-01-22] MEDS: METOPROLOL TART IMMED RELEASE 25 MG TABLET. PO SCH ×2 (09:00→20:13)
[2020-01-22] MEDS: cloNIDine HCL 0.1 MG TABLET PO SCH ×2 (09:00→20:13)
[2020-01-22 11:11] VITALS: BP 120/60
--- NOTE | 2020-01-22 11:17 | RAD ---
Examination: Gastric Emptying Study History:: Nausea, abdominal pain for one week Procedure: Serial static images are obtained over the stomach following oral administration of 2 mCi of 99 M technetium sulfur colloid in a solid meal. Findings: The stomach empties normally into the small bowel without evidence of reflux in the area the esophagus. The gastric emptying half time is 60 minutes (normal is 66 +/- 22 minutes). Retention 120 minutes is 6%. Impression: Normal gastric emptying study. Electronically signed by: Tony Trivedi MD (01/22/2020 11:13 AM) [id number]
[2020-01-22] MEDS: CITALOPRAM 10 MG TABLET. PO SCH (11:32)
[2020-01-22] MEDS: DOXYCYCLINE HYCLATE 100 MG TABLET PO SCH ×2 (11:32→20:12)
[2020-01-22] MEDS: APIXABAN 5 MG TABLET. PO SCH ×2 (11:32→20:12)
[2020-01-22] MEDS: TOPIRAMATE 25 MG TABLET. PO SCH ×2 (11:32→20:12)
[2020-01-22] MEDS: LACTOBACILLUS RHAMNOSUS GG 1 CAPSULE. PO SCH ×2 (11:32→20:12)
[2020-01-22] MEDS: ASPIRIN ENTERIC COATED 81 MG TABLET.DR. PO SCH (11:32)
[2020-01-22] MEDS: INSULIN GLARGINE SYRINGE. SQ SCH ×2 (11:45→20:41)
[2020-01-22 12:29] LABS: BASO % 1 % (0-3); EOS # 0.2 x10^3/uL (0.0-0.7); EOS % 3 % (0-3); HEMATOCRIT 37.6 % (36.0-47.0); HEMOGLOBIN 12.1 g/dL (12.0-15.5); LYMPH # 2.8 x10^3/uL (1.0-4.8); LYMPH % 39 % (24-48); MEAN CORPUSCULAR HEMOGLOBIN 27 pg (25-35); MEAN CORPUSCULAR HGB CONC 32 g/dL (31-37); MEAN CORPUSCULAR VOLUME 85 fL (79-100); MONO # 0.5 x10^3/uL (0.0-1.1); MONO % 8 % (0-9); NEUT # 3.6 x10^3/uL (1.8-7.7); NEUT % 50 % (31-73); PLATELET COUNT 247 x10^3/uL (140-400); RED BLOOD COUNT 4.44 x10^6/uL (3.50-5.40); RED CELL DISTRIBUTION WIDTH 15.6 % (11.5-14.5); WHITE BLOOD COUNT 7.2 x10^3/uL (4.0-11.0)
[2020-01-22 12:40] LABS: CALCIUM 8.6 mg/dL (8.5-10.1); CREATININE 0.8 mg/dL (0.6-1.0); GFR 77.2; POTASSIUM 3.9 mmol/L (3.5-5.1)
--- NOTE | 2020-01-22 13:23 | PDOC2 ---
GI CONSULT Reason For Consult: persistent nausea, possible narcotic bowel HPI: HPI: 44 y/o female admitted a few days ago w/ epigastric pain and hyperglycemia. Currently eating a cheeseburger. Tells me has had nausea w/ two episodes of bilious vomiting after eating - started about 2 weeks ago, though she has these symptoms every couple months or so. Occurs without precipitating events, doesn't think related to hyperglycemia. Often has associated RUQ pain at home. Still has sharp epigastric pain w/ some radiation to chest and occasionally to back - constant but probably worse with eating. Typically no issues w/ constipation but hasn't stooled in 4 days since has been taking pain meds here. H/o GERD on omeprazole 40mg QD. Has noted intermittently that solid foods and sometimes water gets stuck in the mid throat and she has to cough to get it out. No odynophagia. No diarrhea, hematochezia, melena, or weight loss. No previous EGD. Colonoscopy "years ago" at an outpatient facility in [place]. GES in 2017 w/ mildly delayed emptying. Repeat GES this admission was normal. No GB, pancreas, or PUD history. Hepatic steatosis on past imaging. Mix of iron deficiency in 2017, B12 normal in 2018, TSH normal in 2019. Last A1c >13 in 2019. Has chronic pain (doesn't specify) on Tramadol at home, no NSAIDs. Has Eliquis and ASA ordered here, h/o CAD and A Fib. Per nurse, ate a lot all day yesterday, no coughing or choking or vomiting. 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 - focal), , tubal ligation, heart cath, scalp I&D FH: Family History: Cancer (grandfather - stomach), CAD, DM, Other (father - "most of stomach removed," ulcers) Social History: Smoke: No ALCOHOL: none Drugs: None ROS: GEN: Denies fevers, chills, sweats HEENT: Denies blurred vision, sore throat CV: Denies chest pain RESP: Denies shortness of air, cough GI: Per HPI : Denies hematuria, dysuria ENDO: Denies weight changes NEURO: Denies confusion, dizziness MSK: Denies weakness, joint pain/swelling SKIN: Denies jaundice, pruritus Vitals: Vitals: Vital Signs Date Time Temp Pulse Resp B/P (MAP) Pulse Ox O2 Delivery O2 Flow Rate FiO2 01/22/20 11:11 98.5 81 18 120/60 (80) 96 Room Air 98.5 01/21/20 15:55 2.0 Labs: Labs: Laboratory Tests Test 01/21/20 17:39 01/21/20 20:53 01/22/20 08:11 01/22/20 11:32 Glucose (Fingerstick) 150 mg/dL 245 mg/dL 335 mg/dL 205 mg/dL URINE CULTURE RES 1 Final Escherichia coli Allergies: Coded Allergies: carbidopa (Verified Allergy, Intermediate, UN, 01/19/20) Medications: Current Medications Medications (Trade) Dose Ordered Sig/Mo Route PRN Reason Start Time Stop Time Status Last Admin Dose Admin Lactobacillus Rhamnosus (Culturelle) 1 cap BID PO 01/21/20 21:00 01/22/20 11:32 Doxycycline Hyclate (Vibra-Tab) 100 mg BID PO 01/21/20 14:00 01/22/20 11:32 Imaging: Imaging: CT A/P 01/18 IMPRESSION: 1. Hepatomegaly and hepatic steatosis. Correlate for any evidence of steatohepatitis. 2. Skin thickening and subcutaneous fat stranding around the umbilicus could reflect cellulitis in the appropriate clinical context. Correlate with the physical exam. 3. No evidence of acute appendicitis or other acute findings in the abdomen or pelvis following previous hysterectomy. GES 01/21 Impression: Normal gastric emptying study. PE: GEN: NAD, eating enthusiastically HEENT: Atraumatic, PERRL LUNGS: CTAB HEART: RRR ABD: quiet BS, S/ND, vague tenderness epigastrium EXTREMITY: No edema SKIN: No rashes, no jaundice NEURO/PSYCH: A & O 3 A/P: A/P: Uncontrolled DM Epigastric pain, n/v ?constipation GERD, intermittent dysphagia - on PPI, no previous EGD CRC screen - reports normal colonoscopy years ago Hepatic steatosis H/o iron deficiency Chronic pain -- No GI concerns per staff. Not getting PPI here, will restart. Try Miralax and Dulcolax. Encouraged better control of diabetes. Consider outpt scopes for h/o iron deficiency, h/o GERD, and intermittent dysphagia. SOLIS ELLIS January 22, 2020 13:23
[2020-01-22] MEDS ORDERED: BISACODYL 5 MG TABLET.DR. PO ONE (14:30)
[2020-01-22] MEDS ORDERED: POLYETHYLENE GLYCOL 3350 17 GM PACKET. PO PRN (14:30)
--- NOTE | 2020-01-22 14:37 | NUR ---
wound care patient seen per wound care consult. 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 patient has some callous to the right foot, no drainage noted, recommendations of a edge brusher. wound care is singing off at this time, please re-consult if the integumentary assessment changes.
[2020-01-22 15:16] VITALS: BP 124/71
[2020-01-22] MEDS: PANTOPRAZOLE 40 MG TABLET.DR. PO SCH (16:42)
[2020-01-22 19:37] VITALS: BP 128/64
[2020-01-22] MEDS: diphenhydrAMINE HCL 25 MG CAPSULE PO PRN (20:11)
[2020-01-22] MEDS: ATORVASTATIN CALCIUM 20 MG TABLET PO SCH (20:12)
[2020-01-22] MEDS: traZODone 50 MG TABLET. PO SCH (20:12)
--- NOTE | 2020-01-22 20:15 | NUR ---
Benadryl PO given for C/O hands itching. Patient requested 2100 medication at this time. Meds given.
[2020-01-22 22:15] VITALS: BP 118/55
[2020-01-23 01:08] LABS: HEMOGLOBIN A1C 12.8 % (4.8-5.6)
[2020-01-23] MEDS: oxyCODONE/APAP 5/325 1 TAB TABLET PO PRN ×3 (02:27→13:42)
[2020-01-23 02:50] VITALS: BP 99/53
[2020-01-23 07:00] VITALS: BP 117/46
[2020-01-23] MEDS: INSULIN LISPRO 300 UNITS/3 ML VIAL. SQ SCH ×4 (08:00→12:38)
[2020-01-23] MEDS ORDERED: POLYETHYLENE GLYCOL 3350 17 GM PACKET. PO SCH (09:00)
[2020-01-23] MEDS: LACTOBACILLUS RHAMNOSUS GG 1 CAPSULE. PO SCH (09:16)
[2020-01-23] MEDS: ASPIRIN ENTERIC COATED 81 MG TABLET.DR. PO SCH (09:16)
[2020-01-23] MEDS: APIXABAN 5 MG TABLET. PO SCH (09:16)
[2020-01-23] MEDS: clonazePAM 0.5 MG TABLET PO SCH ×2 (09:16→13:42)
[2020-01-23] MEDS: GABAPENTIN 400 MG CAPSULE. PO SCH ×2 (09:16→13:42)
[2020-01-23] MEDS: DOXYCYCLINE HYCLATE 100 MG TABLET PO SCH (09:16)
[2020-01-23] MEDS: cloNIDine HCL 0.1 MG TABLET PO SCH (09:16)
[2020-01-23] MEDS: TOPIRAMATE 25 MG TABLET. PO SCH (09:17)
[2020-01-23] MEDS: PANTOPRAZOLE 40 MG TABLET.DR. PO SCH (09:17)
[2020-01-23] MEDS: METOPROLOL TART IMMED RELEASE 25 MG TABLET. PO SCH (09:18)
[2020-01-23] MEDS: CITALOPRAM 10 MG TABLET. PO SCH (09:18)
[2020-01-23] MEDS: FLUTICASONE 50MCG/NASAL SPRAY 16GM BOTTLE. NS SCH (09:19)
[2020-01-23] MEDS: INSULIN GLARGINE SYRINGE. SQ SCH (09:20)
--- NOTE | 2020-01-23 09:25 | PDOC ---
Subjective: Subjective: Eating okay. Runny stool after constipation pill yesterday. Epigastric pain better. Objective: Vital Signs: Vital Signs Date Time Temp Pulse Resp B/P (MAP) Pulse Ox O2 Delivery O2 Flow Rate FiO2 01/23/20 07:00 98.1 83 16 117/46 (69) 94 Room Air 98.1 Labs: Laboratory Tests Test 01/22/20 11:32 01/22/20 12:05 01/22/20 16:43 01/22/20 20:38 Glucose (Fingerstick) 205 mg/dL 133 mg/dL 171 mg/dL White Blood Count 7.2 x10^3/uL Red Blood Count 4.44 x10^6/uL Hemoglobin 12.1 g/dL Hematocrit 37.6 % Mean Corpuscular Volume 85 fL Mean Corpuscular Hemoglobin 27 pg Mean Corpuscular Hemoglobin Concent 32 g/dL Red Cell Distribution Width 15.6 % Platelet Count 247 x10^3/uL Neutrophils (%) (Auto) 50 % Lymphocytes (%) (Auto) 39 % Monocytes (%) (Auto) 8 % Eosinophils (%) (Auto) 3 % Basophils (%) (Auto) 1 % Neutrophils # (Auto) 3.6 x10^3/uL Lymphocytes # (Auto) 2.8 x10^3/uL Monocytes # (Auto) 0.5 x10^3/uL Eosinophils # (Auto) 0.2 x10^3/uL Basophils # (Auto) 0.0 x10^3/uL Sodium Level 143 mmol/L Potassium Level 3.9 mmol/L Chloride Level 106 mmol/L Carbon Dioxide Level 32 mmol/L Anion Gap 5 Blood Urea Nitrogen 16 mg/dL Creatinine 0.8 mg/dL Estimated GFR (Cockcroft-Gault) 77.2 Glucose Level 186 mg/dL Hemoglobin A1c 12.8 % Calcium Level 8.6 mg/dL Test 01/23/20 07:47 Glucose (Fingerstick) 167 mg/dL PE: GEN: NAD, was on the phone, breakfast tray 100% consumed LUNGS: CTAB HEART: RRR ABD: soft, epigastrium less tender, BS+ NEURO/PSYCH: A & O 3 A/P: Uncontrolled DM Epigastric pain, n/v, constipation - resolving Chronic pain -- Improved/stable GI-mora, DC per primary. Continue PPI. Can use Miralax/Dulcolax PRN. Outpt 'scopes. 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 Hemodynamically unstable?: No Is patient in severe pain?: No Is NPO status required?: No SOLIS ELLIS January 23, 2020 09:25
--- NOTE | 2020-01-23 10:44 | PDOC ---
PROGRESS NOTES Chief Complaint Chief Complaint discharge dx ====== acute metabolic encephalopathy resolved covid 19 negative abdominal pain secondary to gastroparesis? Normal gastric emptying study. 01/21 hyperglycemia improved lactic acidosis resolved hx cervical cancer leukocytosis, pseudohyponatremia secondary to hyperglycemia headache diarrhea DM2, poor control, very large doses of insulin leg pain, back pain, back spasm chronic pain syndrome on chronic narcotic Rx obese, BMI 36 Normal HIDA in 2013 (GB EF 74%) Plan: continue with current insulin orders adjust as necessary reeval in the am gastric emptying study GI CONSULT REVIEWED 01/21 REPORTS CONTINUED NAUSEA AND PAIN 01/22 BETTER, D/C TODAY HAS INSULIN AT HOME, REVIEWED DIET PLANS, AVOID CARBS D/C PLANNING 26 MIN History of Present Illness History of Present Illness No acute events reported overnight, case discussed with nursing staff patient in no acute distress // NO NAUSEA complaint during my visit ATE 100% OF BREAKFAST 26 MIN PT EXAM, CHART REVIEW D/C PLANNING , > 50% of time spent with exam, chart review, pt care coordination Vitals Vitals Vital Signs Date Time Temp Pulse Resp B/P (MAP) Pulse Ox O2 Delivery O2 Flow Rate FiO2 01/23/20 09:18 83 117/46 01/23/20 09:16 Room Air 01/23/20 07:00 98.1 16 94 98.1 Physical Exam General: Alert, Oriented X3, Cooperative, No acute distress Heart: Regular rate, Normal S1, Normal S2 Lungs: Clear, Other Abdomen: Normal bowel sounds, Soft, No tenderness, No hepatosplenomegaly, No masses Extremities: No clubbing, No cyanosis, No edema Skin: No rashes, No significant lesion Labs LABS Laboratory Tests Test 01/22/20 11:32 01/22/20 12:05 01/22/20 16:43 01/22/20 20:38 Glucose (Fingerstick) 205 mg/dL (70-99) 133 mg/dL (70-99) 171 mg/dL (70-99) White Blood Count 7.2 x10^3/uL (4.0-11.0) Red Blood Count 4.44 x10^6/uL (3.50-5.40) Hemoglobin 12.1 g/dL (12.0-15.5) Hematocrit 37.6 % (36.0-47.0) Mean Corpuscular Volume 85 fL (79-100) Mean Corpuscular Hemoglobin 27 pg (25-35) Mean Corpuscular Hemoglobin Concent 32 g/dL (31-37) Red Cell Distribution Width 15.6 % (11.5-14.5) Platelet Count 247 x10^3/uL (140-400) Neutrophils (%) (Auto) 50 % (31-73) Lymphocytes (%) (Auto) 39 % (24-48) Monocytes (%) (Auto) 8 % (0-9) Eosinophils (%) (Auto) 3 % (0-3) Basophils (%) (Auto) 1 % (0-3) Neutrophils # (Auto) 3.6 x10^3/uL (1.8-7.7) Lymphocytes # (Auto) 2.8 x10^3/uL (1.0-4.8) Monocytes # (Auto) 0.5 x10^3/uL (0.0-1.1) Eosinophils # (Auto) 0.2 x10^3/uL (0.0-0.7) Basophils # (Auto) 0.0 x10^3/uL (0.0-0.2) Sodium Level 143 mmol/L (136-145) Potassium Level 3.9 mmol/L (3.5-5.1) Chloride Level 106 mmol/L (98-107) Carbon Dioxide Level 32 mmol/L (21-32) Anion Gap 5 (6-14) Blood Urea Nitrogen 16 mg/dL (7-20) Creatinine 0.8 mg/dL (0.6-1.0) Estimated GFR (Cockcroft-Gault) 77.2 Glucose Level 186 mg/dL (70-99) Hemoglobin A1c 12.8 % (4.8-5.6) Calcium Level 8.6 mg/dL (8.5-10.1) Test 01/23/20 07:47 Glucose (Fingerstick) 167 mg/dL (70-99) Assessment and Plan Assessmemt and Plan Problems Medical Problems: (1) Cellulitis Status: Acute Comment Review of Relevant I have reviewed the following items emery (where applicable) has been applied. Labs Laboratory Tests Test 01/21/20 12:03 01/21/20 17:39 01/21/20 20:53 01/22/20 08:11 Glucose (Fingerstick) 196 mg/dL (70-99) 150 mg/dL (70-99) 245 mg/dL (70-99) 335 mg/dL (70-99) Test 01/22/20 11:32 01/22/20 12:05 01/22/20 16:43 01/22/20 20:38 Glucose (Fingerstick) 205 mg/dL (70-99) 133 mg/dL (70-99) 171 mg/dL (70-99) White Blood Count 7.2 x10^3/uL (4.0-11.0) Red Blood Count 4.44 x10^6/uL (3.50-5.40) Hemoglobin 12.1 g/dL (12.0-15.5) Hematocrit 37.6 % (36.0-47.0) Mean Corpuscular Volume 85 fL (79-100) Mean Corpuscular Hemoglobin 27 pg (25-35) Mean Corpuscular Hemoglobin Concent 32 g/dL (31-37) Red Cell Distribution Width 15.6 % (11.5-14.5) Platelet Count 247 x10^3/uL (140-400) Neutrophils (%) (Auto) 50 % (31-73) Lymphocytes (%) (Auto) 39 % (24-48) Monocytes (%) (Auto) 8 % (0-9) Eosinophils (%) (Auto) 3 % (0-3) Basophils (%) (Auto) 1 % (0-3) Neutrophils # (Auto) 3.6 x10^3/uL (1.8-7.7) Lymphocytes # (Auto) 2.8 x10^3/uL (1.0-4.8) Monocytes # (Auto) 0.5 x10^3/uL (0.0-1.1) Eosinophils # (Auto) 0.2 x10^3/uL (0.0-0.7) Basophils # (Auto) 0.0 x10^3/uL (0.0-0.2) Sodium Level 143 mmol/L (136-145) Potassium Level 3.9 mmol/L (3.5-5.1) Chloride Level 106 mmol/L (98-107) Carbon Dioxide Level 32 mmol/L (21-32) Anion Gap 5 (6-14) Blood Urea Nitrogen 16 mg/dL (7-20) Creatinine 0.8 mg/dL (0.6-1.0) Estimated GFR (Cockcroft-Gault) 77.2 Glucose Level 186 mg/dL (70-99) Hemoglobin A1c 12.8 % (4.8-5.6) Calcium Level 8.6 mg/dL (8.5-10.1) Test 01/23/20 07:47 Glucose (Fingerstick) 167 mg/dL (70-99) Laboratory Tests Test 01/22/20 11:32 01/22/20 12:05 01/22/20 16:43 01/22/20 20:38 Glucose (Fingerstick) 205 mg/dL (70-99) 133 mg/dL (70-99) 171 mg/dL (70-99) White Blood Count 7.2 x10^3/uL (4.0-11.0) Red Blood Count 4.44 x10^6/uL (3.50-5.40) Hemoglobin 12.1 g/dL (12.0-15.5) Hematocrit 37.6 % (36.0-47.0) Mean Corpuscular Volume 85 fL (79-100) Mean Corpuscular Hemoglobin 27 pg (25-35) Mean Corpuscular Hemoglobin Concent 32 g/dL (31-37) Red Cell Distribution Width 15.6 % (11.5-14.5) Platelet Count 247 x10^3/uL (140-400) Neutrophils (%) (Auto) 50 % (31-73) Lymphocytes (%) (Auto) 39 % (24-48) Monocytes (%) (Auto) 8 % (0-9) Eosinophils (%) (Auto) 3 % (0-3) Basophils (%) (Auto) 1 % (0-3) Neutrophils # (Auto) 3.6 x10^3/uL (1.8-7.7) Lymphocytes # (Auto) 2.8 x10^3/uL (1.0-4.8) Monocytes # (Auto) 0.5 x10^3/uL (0.0-1.1) Eosinophils # (Auto) 0.2 x10^3/uL (0.0-0.7) Basophils # (Auto) 0.0 x10^3/uL (0.0-0.2) Sodium Level 143 mmol/L (136-145) Potassium Level 3.9 mmol/L (3.5-5.1) Chloride Level 106 mmol/L (98-107) Carbon Dioxide Level 32 mmol/L (21-32) Anion Gap 5 (6-14) Blood Urea Nitrogen 16 mg/dL (7-20) Creatinine 0.8 mg/dL (0.6-1.0) Estimated GFR (Cockcroft-Gault) 77.2 Glucose Level 186 mg/dL (70-99) Hemoglobin A1c 12.8 % (4.8-5.6) Calcium Level 8.6 mg/dL (8.5-10.1) Test 01/23/20 07:47 Glucose (Fingerstick) 167 mg/dL (70-99) Microbiology 01/19/20 Urine Culture - Final, Complete 01/19/20 Urine Culture Result 1 (ERWIN) - Final, Complete 01/19/20 Antimicrobic Susceptibility - Final, Complete Medications Current Medications Sodium Chloride 1,000 ml @ 1,000 mls/hr 1X ONCE IV Last administered on 01/19/20at 10:09; Start 01/19/20 at 10:00; Stop 01/19/20 at 10:59; Status DC Ondansetron HCl (Zofran) 4 mg 1X ONCE IVP Last administered on 01/19/20at 10:14; Start 01/19/20 at 10:00; Stop 01/19/20 at 10:05; Status DC Fentanyl Citrate (Fentanyl 2ml Vial) 50 mcg 1X ONCE IVP Last administered on 01/19/20at 10:14; Start 01/19/20 at 10:00; Stop 01/19/20 at 10:05; Status DC Ondansetron HCl (Zofran) 4 mg 1X ONCE IVP Last administered on 01/19/20at 10:46; Start 01/19/20 at 10:00; Stop 01/19/20 at 10:05; Status DC Sodium Chloride 1,000 ml @ 1,000 mls/hr 1X ONCE IV Last administered on 01/19/20at 10:44; Start 01/19/20 at 11:00; Stop 01/19/20 at 11:59; Status DC Iohexol (Omnipaque 300 Mg/ml) 60 ml 1X ONCE IV Last administered on 01/19/20at 11:50; Start 01/19/20 at 11:30; Stop 01/19/20 at 11:31; Status DC Info (CONTRAST GIVEN -- Rx MONITORING) 1 each PRN DAILY PRN MC SEE COMMENTS; Start 01/19/20 at 11:30; Stop 01/21/20 at 11:29; Status DC Ceftriaxone Sodium (Rocephin) 1 gm DAILY IVP Last administered on 01/21/20at 02:00; Start 01/19/20 at 13:00; Stop 01/21/20 at 13:42; Status DC Insulin Human Regular 100 unit/ Sodium Chloride 101 ml @ 0 mls/hr CONT PRN IV SEE I/O RECORD Last administered on 01/20/20at 06:25; Start 01/19/20 at 15:30 Pharmacy Consult (C.diff Med Screen By Rx) 1 each 1X ONCE MC Last administered on 01/19/20at 16:45; Start 01/19/20 at 16:45; Stop 01/19/20 at 16:49; Status DC Ketorolac Tromethamine (Toradol 30mg Vial) 30 mg PRN Q8HRS PRN IVP MILD - MODERATE PAIN Last administered on 01/20/20 08:08; Start 01/19/20 at 17:30; Stop 01/24/20 at 17:29 Cyclobenzaprine HCl (Flexeril) 10 mg PRN Q8HRS PRN PO MUSCLE SPASMS Last administered on 01/20/20at 21:00; Start 01/19/20 at 17:30 Diphenhydramine HCl (Benadryl) 25 mg PRN Q8HRS PRN PO ITCHING Last administered on 01/22/20at 20:11; Start 01/19/20 at 19:30 Apixaban (Eliquis) 5 mg BID PO Last administered on 01/23/20 09:16; Start 01/20/20 at 12:00 Aspirin (Ecotrin) 81 mg DAILY PO Last administered on 01/23/20 09:16; Start 01/20/20 at 12:00 Clonazepam (KlonoPIN) 0.5 mg TID PO Last administered on 01/23/20at 09:16; Start 01/20/20 at 14:00 Clonidine HCl (Catapres) 0.1 mg BID PO Last administered on 01/23/20 09:16; Start 01/20/20 at 12:00 Diltiazem HCl (Cardizem 24hr Cd) 180 mg DAILY PO Last administered on 01/23/20 09:18; Start 01/20/20 at 12:00 Fluticasone Propionate (Flonase) 1 spray BID NS Last administered on 01/23/20 09:19; Start 01/20/20 at 12:00 Metoprolol Tartrate (Lopressor) 12.5 mg BID PO Last administered on 01/23/20 09:18; Start 01/20/20 at 12:00 Ondansetron HCl (Zofran Odt) 4 mg PRN Q8HRS PRN PO NAUSEA Last administered on 01/23/20 10:23; Start 01/20/20 at 11:15 Atorvastatin Calcium (Lipitor) 20 mg QHS PO Last administered on 01/22/20 20:12; Start 01/20/20 at 21:00 Topiramate (Topamax) 25 mg BID PO Last administered on 01/23/20 09:17; Start 01/20/20 at 12:00 Tramadol HCl (Ultram) 50 mg PRN Q6HRS PRN PO MILD TO MODERATE PAIN; Start 01/20/20 at 11:15 Trazodone HCl (Desyrel) 50 mg HS PO Last administered on 01/22/20 20:12; Start 01/20/20 at 21:00 Non-Formulary Medication (Albuterol Sulfate (Albuterol Sulfate Conc Neb Soln)) 2.5 mg Q4HRS PRN NEB SHORTNESS OF BREATH; Start 01/20/20 at 11:15; Status UNV Non-Formulary Medication (Budesonide/ Formoterol Fumarate (Symbicort 160-4.5 Mcg Inhaler)) 2 puff BID IH ; Start 01/20/20 at 21:00; Status UNV Citalopram Hydrobromide (CeleXA) 10 mg DAILY PO Last administered on 01/23/20 09:18; Start 01/21/20 at 09:00 Gabapentin (Neurontin) 800 mg QID PO Last administered on 01/23/20 09:16; Start 01/20/20 at 13:00 Sodium Chloride 1,000 ml @ 125 mls/hr 1X ONCE IV Last administered on 01/20/20at 14:46; Start 01/20/20 at 11:15; Stop 01/20/20 at 19:14; Status DC Oxycodone/ Acetaminophen (Percocet 5/325) 1 tab PRN Q4HRS PRN PO SEVERE PAIN Last administered on 01/23/20at 09:16; Start 01/20/20 at 11:15 Insulin Human Lispro (HumaLOG) 0-9 UNITS TIDWMEALS SQ Last administered on 01/22/20at 11:46; Start 01/20/20 at 12:00 Dextrose (Dextrose 50%-Water Syringe) 12.5 gm PRN Q15MIN PRN IV SEE COMMENTS; Start 01/20/20 at 11:15 Insulin Glargine (Lantus Syringe) 50 unit BID SQ Last administered on 01/23/20 09:20; Start 01/20/20 at 21:00 Insulin Human Lispro (HumaLOG) 55 units TIDWMEALS SQ Last administered on 01/23/20 09:20; Start 01/20/20 at 17:00 Info (Anti-Coagulation Monitoring By Pharmacy) 1 each PRN DAILY PRN MC SEE COMMENTS Last administered on 01/21/20at 14:02; Start 01/20/20 at 11:45 Albuterol Sulfate (Ventolin Neb Soln) 2.5 mg PRN Q4HRS PRN NEB SHORTNESS OF BREATH; Start 01/20/20 at 13:00; Stop 01/21/20 at 09:15; Status DC Albuterol Sulfate (Ventolin Neb Soln) 2.5 mg RTQID NEB ; Start 01/20/20 at 16:00; Stop 01/20/20 at 16:32; Status DC Budesonide (Pulmicort) 0.5 mg RTBID NEB ; Start 01/20/20 at 20:00; Stop 01/20/20 at 16:32; Status DC Fentanyl Citrate (Fentanyl 2ml Vial) 50 mcg PRN Q2HR PRN IVP SEVERE PAIN Last administered on 01/22/20at 20:34; Start 01/20/20 at 15:15 Albuterol Sulfate (Ventolin Neb Soln) 2.5 mg PRN QID PRN NEB shortness of breath,1ST CHOICE; Start 01/20/20 at 16:30 Budesonide (Pulmicort) 0.5 mg PRN BID PRN NEB shortness of breath; Start 01/20/20 at 16:30 Lactobacillus Rhamnosus (Culturelle) 1 cap BID PO Last administered on 01/23/20at 09:16; Start 01/21/20 at 21:00 Doxycycline Hyclate (Vibra-Tab) 100 mg BID PO Last administered on 01/23/20at 09:16; Start 01/21/20 at 14:00 Pantoprazole Sodium (Protonix) 40 mg DAILYAC PO Last administered on 01/23/20at 09:17; Start 01/22/20 at 16:30 Polyethylene Glycol (miraLAX PACKET) 17 gm DAILY PO Last administered on 01/23/20at 09:15; Start 01/23/20 at 09:00 Polyethylene Glycol (miraLAX PACKET) 17 gm PRN DAILY PRN PO CONSTIPATION; Start 01/22/20 at 14:30 Bisacodyl (Dulcolax Tab) 10 mg 1X ONCE PO Last administered on 01/22/20at 14:52; Start 01/22/20 at 14:30; Stop 01/22/20 at 14:33; Status DC Active Scripts Active Hydrocodone-Acetamin 7.5-325 (Hydrocodone/Acetaminophen) 1 Each Tablet 1 Each PO PRN Q6HRS PRN 6 Days Metoprolol Tartrate 25 Mg Tablet 12.5 Mg PO BID 30 Days Zofran Odt (Ondansetron) 4 Mg Tab.rapdis 1 Tab SL Q8HRS PRN Diltiazem 24Hr Cd (Diltiazem HCl) 180 Mg Cap.er.24h 180 Mg PO DAILY Reported Hydroxyzine Pamoate 50 Mg Capsule 50 Mg PO HS Klonopin (Clonazepam) 0.5 Mg Tablet 0.5 Mg PO TID Tramadol Hcl 50 Mg Tablet 50 Mg PO Q6HRS PRN Eliquis (Apixaban) 5 Mg Tablet 5 Mg PO BID Acetazolamide 250 Mg Tablet 250 Mg PO BID Fluticasone Propionate Nasal [place] (Fluticasone Propionate) 16 Gm [place].susp 2 Spr MANDIE BID Clonidine Hcl 0.1 Mg Tablet 1 Tab PO BID Topiramate 25 Mg Tablet 1 Tab PO BID Lantus Solostar (Insulin Glargine,Hum.rec.anlog) 100 Unit/1 Ml Insuln.pen 50 Unit SQ BID Humalog (Insulin Lispro) 100 Unit/1 Ml Cartridge 55 Unit SQ TIDWMEALS Trazodone Hcl 50 Mg Tablet 50 Mg PO HS Aspirin Ec (Aspirin) 81 Mg Tablet.dr 81 Mg PO DAILY Gabapentin 800 Mg Tablet 800 Mg PO QID Omeprazole 40 Mg Capsule.dr 40 Mg PO DAILY Iron (Ferrous Sulfate) 325 Mg Tablet 325 Mg PO DAILY Lexapro (Escitalopram Oxalate) 5 Mg Tablet 5 Mg PO DAILY Fexofenadine Hcl 180 Mg Tablet 180 Mg PO DAILY Albuterol Sulfate Conc Neb Soln (Albuterol Sulfate) 2.5 Mg/0.5 Ml Vial.neb 2.5 Mg NEB Q4HRS PRN Simvastatin 40 Mg Tablet 40 Mg PO HS Symbicort 160-4.5 Mcg Inhaler (Budesonide/Formoterol Fumarate) 10.2 Gm Hfa.aer.ad 2 Puff IH BID Vitals/I & O Vital Sign - Last 24 Hours 01/22/20 01/22/20 01/22/20 01/22/20 11:11 15:16 16:46 19:37 Temp 98.5 98.3 98.3 98.5 98.3 98.3 Pulse 81 86 101 Resp 18 18 16 B/P (MAP) 120/60 (80) 124/71 (88) 128/64 (85) Pulse Ox 96 94 93 O2 Delivery Room Air Room Air Room Air Room Air 01/22/20 01/22/20 01/22/20 01/22/20 20:13 20:13 20:18 20:34 Pulse 97 97 Resp 20 B/P (MAP) 121/51 121/51 O2 Delivery Room Air Room Air 01/22/20 01/22/20 01/23/20 01/23/20 21:04 22:15 02:27 02:50 Temp 98.5 98.3 98.5 98.3 Pulse 96 82 Resp 18 16 20 16 B/P (MAP) 118/55 (76) 99/53 (68) Pulse Ox 92 92 92 O2 Delivery Room Air Room Air Room Air Room Air 01/23/20 01/23/20 01/23/20 01/23/20 03:27 07:00 08:00 09:16 Temp 98.1 98.1 Pulse 83 83 Resp 12 16 B/P (MAP) 117/46 (69) 117/46 Pulse Ox 94 O2 Delivery Room Air Room Air Room Air 01/23/20 01/23/20 01/23/20 09:16 09:18 09:18 Pulse 83 83 B/P (MAP) 117/46 117/46 O2 Delivery Room Air Intake and Output 01/22/20 01/22/20 01/23/20 14:59 22:59 06:59 Intake Total 240 ml 680 ml 200 ml Balance 240 ml 680 ml 200 ml Hemodynamically unstable?: No Is patient in severe pain?: No Is NPO status required?: No GRAY CAMACHO MD January 23, 2020 10:44
[2020-01-23 11:15] VITALS: BP 124/68
--- NOTE | 2020-01-23 11:48 | NUR ---
SW following. Discussed with RN, pt from home alone, ADA diet. RN advised no SW needs, anticipate possible discharge home with self care today. SW will continue to follow should any discharge planning needs arise.
--- NOTE | 2020-01-23 11:59 | PDOC3 ---
Discharge Summary Date of Admission: January 19, 2020 Date of Discharge: January 23, 2020 Follow-Up: 3-5 days Admitting Diagnosis comment: discharge dx ====== acute metabolic encephalopathy resolved covid 19 negative abdominal pain secondary to gastroparesis? Normal gastric emptying study. 01/21 hyperglycemia improved lactic acidosis resolved hx cervical cancer leukocytosis, pseudohyponatremia secondary to hyperglycemia headache diarrhea DM2, poor control, very large doses of insulin leg pain, back pain, back spasm chronic pain syndrome on chronic narcotic Rx obese, BMI 36 Normal HIDA in 2013 (GB EF 74%) Plan: continue with current insulin orders adjust as necessary reeval in the am gastric emptying study GI CONSULT REVIEWED 01/21 REPORTS CONTINUED NAUSEA AND PAIN 01/22 BETTER, D/C TODAY HAS INSULIN AT HOME, REVIEWED DIET PLANS, AVOID CARBS D/C PLANNING 26 MIN History of Present Illness History of Present Illness No acute events reported overnight, case discussed with nursing staff patient in no acute distress // NO NAUSEA complaint during my visit ATE 100% OF BREAKFAST 26 MIN PT EXAM, CHART REVIEW D/C PLANNING , > 50% of time spent with exam, chart review, pt care coordination Vitals Vitals Vital Signs Date Time Temp Pulse Resp B/P (MAP) Pulse Ox O2 Delivery O2 Flow Rate FiO2 01/23/20 09:18 83 117/46 01/23/20 09:16 Room Air 01/23/20 07:00 98.1 16 94 98.1 Physical Exam General: Alert, Oriented X3, Cooperative, No acute distress Heart: Regular rate, Normal S1, Normal S2 Lungs: Clear, Other Abdomen: Normal bowel sounds, Soft, No tenderness, No hepatosplenomegaly, No m asses Extremities: No clubbing, No cyanosis, No edema Skin: No rashes, No significant lesion FINAL DIAGNOSIS Problems Medical Problems: (1) Cellulitis Status: Acute Brief Hospital Course Ms. Banegas is a 44 old [sex] who presented with [ intractable vomiting, nausea ] CONDITION AT DISCHARGE: Improved Discharge Medications Current Medications Sodium Chloride 1,000 ml @ 1,000 mls/hr 1X ONCE IV Last administered on 01/19/20at 10:09; Start 01/19/20 at 10:00; Stop 01/19/20 at 10:59; Status DC Ondansetron HCl (Zofran) 4 mg 1X ONCE IVP Last administered on 01/19/20at 10:14; Start 01/19/20 at 10:00; Stop 01/19/20 at 10:05; Status DC Fentanyl Citrate (Fentanyl 2ml Vial) 50 mcg 1X ONCE IVP Last administered on 01/19/20 10:14; Start 01/19/20 at 10:00; Stop 01/19/20 at 10:05; Status DC Ondansetron HCl (Zofran) 4 mg 1X ONCE IVP Last administered on 01/19/20at 10:46; Start 01/19/20 at 10:00; Stop 01/19/20 at 10:05; Status DC Sodium Chloride 1,000 ml @ 1,000 mls/hr 1X ONCE IV Last administered on 01/19/20at 10:44; Start 01/19/20 at 11:00; Stop 01/19/20 at 11:59; Status DC Iohexol (Omnipaque 300 Mg/ml) 60 ml 1X ONCE IV Last administered on 01/19/20at 11:50; Start 01/19/20 at 11:30; Stop 01/19/20 at 11:31; Status DC Info (CONTRAST GIVEN -- Rx MONITORING) 1 each PRN DAILY PRN MC SEE COMMENTS; Start 01/19/20 at 11:30; Stop 01/21/20 at 11:29; Status DC Ceftriaxone Sodium (Rocephin) 1 gm DAILY IVP Last administered on 01/21/20at 02:00; Start 01/19/20 at 13:00; Stop 01/21/20 at 13:42; Status DC Insulin Human Regular 100 unit/ Sodium Chloride 101 ml @ 0 mls/hr CONT PRN IV SEE I/O RECORD Last administered on 01/20/20at 06:25; Start 01/19/20 at 15:30 Pharmacy Consult (C.diff Med Screen By Rx) 1 each 1X ONCE MC Last administered on 01/19/20at 16:45; Start 01/19/20 at 16:45; Stop 01/19/20 at 16:49; Status DC Ketorolac Tromethamine (Toradol 30mg Vial) 30 mg PRN Q8HRS PRN IVP MILD - MODERATE PAIN Last administered on 01/20/20 08:08; Start 01/19/20 at 17:30; Stop 01/24/20 at 17:29 Cyclobenzaprine HCl (Flexeril) 10 mg PRN Q8HRS PRN PO MUSCLE SPASMS Last administered on 01/20/20 21:00; Start 01/19/20 at 17:30 Diphenhydramine HCl (Benadryl) 25 mg PRN Q8HRS PRN PO ITCHING Last administered on 01/22/20 20:11; Start 01/19/20 at 19:30 Apixaban (Eliquis) 5 mg BID PO Last administered on 01/23/20 09:16; Start 01/20/20 at 12:00 Aspirin (Ecotrin) 81 mg DAILY PO Last administered on 01/23/20 09:16; Start 01/20/20 at 12:00 Clonazepam (KlonoPIN) 0.5 mg TID PO Last administered on 01/23/20 09:16; Start 01/20/20 at 14:00 Clonidine HCl (Catapres) 0.1 mg BID PO Last administered on 01/23/20 09:16; Start 01/20/20 at 12:00 Diltiazem HCl (Cardizem 24hr Cd) 180 mg DAILY PO Last administered on 01/23/20 09:18; Start 01/20/20 at 12:00 Fluticasone Propionate (Flonase) 1 spray BID NS Last administered on 01/23/20 09:19; Start 01/20/20 at 12:00 Metoprolol Tartrate (Lopressor) 12.5 mg BID PO Last administered on 01/23/20 09:18; Start 01/20/20 at 12:00 Ondansetron HCl (Zofran Odt) 4 mg PRN Q8HRS PRN PO NAUSEA Last administered on 01/23/20 10:23; Start 01/20/20 at 11:15 Atorvastatin Calcium (Lipitor) 20 mg QHS PO Last administered on 01/22/20 20:12; Start 01/20/20 at 21:00 Topiramate (Topamax) 25 mg BID PO Last administered on 01/23/20 09:17; Start 01/20/20 at 12:00 Tramadol HCl (Ultram) 50 mg PRN Q6HRS PRN PO MILD TO MODERATE PAIN; Start 01/20/20 at 11:15 Trazodone HCl (Desyrel) 50 mg HS PO Last administered on 01/22/20 20:12; Start 01/20/20 at 21:00 Non-Formulary Medication (Albuterol Sulfate (Albuterol Sulfate Conc Neb Soln)) 2.5 mg Q4HRS PRN NEB SHORTNESS OF BREATH; Start 01/20/20 at 11:15; Status UNV Non-Formulary Medication (Budesonide/ Formoterol Fumarate (Symbicort 160-4.5 Mcg Inhaler)) 2 puff BID IH ; Start 01/20/20 at 21:00; Status UNV Citalopram Hydrobromide (CeleXA) 10 mg DAILY PO Last administered on 01/23/20 09:18; Start 01/21/20 at 09:00 Gabapentin (Neurontin) 800 mg QID PO Last administered on 01/23/20 09:16; Start 01/20/20 at 13:00 Sodium Chloride 1,000 ml @ 125 mls/hr 1X ONCE IV Last administered on 01/20/20 14:46; Start 01/20/20 at 11:15; Stop 01/20/20 at 19:14; Status DC Oxycodone/ Acetaminophen (Percocet 5/325) 1 tab PRN Q4HRS PRN PO SEVERE PAIN Last administered on 01/23/20 09:16; Start 01/20/20 at 11:15 Insulin Human Lispro (HumaLOG) 0-9 UNITS TIDWMEALS SQ Last administered on 01/22/20at 11:46; Start 01/20/20 at 12:00 Dextrose (Dextrose 50%-Water Syringe) 12.5 gm PRN Q15MIN PRN IV SEE COMMENTS; Start 01/20/20 at 11:15 Insulin Glargine (Lantus Syringe) 50 unit BID SQ Last administered on 01/23/20 09:20; Start 01/20/20 at 21:00 Insulin Human Lispro (HumaLOG) 55 units TIDWMEALS SQ Last administered on 09:20; Start 01/20/20 at 17:00 Info (Anti-Coagulation Monitoring By Pharmacy) 1 each PRN DAILY PRN MC SEE COMMENTS Last administered on 01/21/20 14:02; Start 01/20/20 at 11:45 Albuterol Sulfate (Ventolin Neb Soln) 2.5 mg PRN Q4HRS PRN NEB SHORTNESS OF BREATH; Start 01/20/20 at 13:00; Stop 01/21/20 at 09:15; Status DC Albuterol Sulfate (Ventolin Neb Soln) 2.5 mg RTQID NEB ; Start 01/20/20 at 16:00; Stop 01/20/20 at 16:32; Status DC Budesonide (Pulmicort) 0.5 mg RTBID NEB ; Start 01/20/20 at 20:00; Stop 01/20/20 at 16:32; Status DC Fentanyl Citrate (Fentanyl 2ml Vial) 50 mcg PRN Q2HR PRN IVP SEVERE PAIN Last administered on 01/22/20at 20:34; Start 01/20/20 at 15:15 Albuterol Sulfate (Ventolin Neb Soln) 2.5 mg PRN QID PRN NEB shortness of breath,1ST CHOICE; Start 01/20/20 at 16:30 Budesonide (Pulmicort) 0.5 mg PRN BID PRN NEB shortness of breath; Start 01/20/20 at 16:30 Lactobacillus Rhamnosus (Culturelle) 1 cap BID PO Last administered on 01/23/20at 09:16; Start 01/21/20 at 21:00 Doxycycline Hyclate (Vibra-Tab) 100 mg BID PO Last administered on 01/23/20at 09:16; Start 01/21/20 at 14:00 Pantoprazole Sodium (Protonix) 40 mg DAILYAC PO Last administered on 01/23/20at 09:17; Start 01/22/20 at 16:30 Polyethylene Glycol (miraLAX PACKET) 17 gm DAILY PO Last administered on 01/23/20at 09:15; Start 01/23/20 at 09:00 Polyethylene Glycol (miraLAX PACKET) 17 gm PRN DAILY PRN PO CONSTIPATION; Start 01/22/20 at 14:30 Bisacodyl (Dulcolax Tab) 10 mg 1X ONCE PO Last administered on 01/22/20at 14:52; Start 01/22/20 at 14:30; Stop 01/22/20 at 14:33; Status DC Active Scripts Active Hydrocodone-Acetamin 7.5-325 (Hydrocodone/Acetaminophen) 1 Each Tablet 1 Each PO PRN Q6HRS PRN 6 Days Metoprolol Tartrate 25 Mg Tablet 12.5 Mg PO BID 30 Days Zofran Odt (Ondansetron) 4 Mg Tab.rapdis 1 Tab SL Q8HRS PRN Diltiazem 24Hr Cd (Diltiazem HCl) 180 Mg Cap.er.24h 180 Mg PO DAILY Reported Hydroxyzine Pamoate 50 Mg Capsule 50 Mg PO HS Klonopin (Clonazepam) 0.5 Mg Tablet 0.5 Mg PO TID Tramadol Hcl 50 Mg Tablet 50 Mg PO Q6HRS PRN Eliquis (Apixaban) 5 Mg Tablet 5 Mg PO BID Acetazolamide 250 Mg Tablet 250 Mg PO BID Fluticasone Propionate Nasal [place] (Fluticasone Propionate) 16 Gm [place].susp 2 Spr MANDIE BID Clonidine Hcl 0.1 Mg Tablet 1 Tab PO BID Topiramate 25 Mg Tablet 1 Tab PO BID Lantus Solostar (Insulin Glargine,Hum.rec.anlog) 100 Unit/1 Ml Insuln.pen 50 Unit SQ BID Humalog (Insulin Lispro) 100 Unit/1 Ml Cartridge 55 Unit SQ TIDWMEALS Trazodone Hcl 50 Mg Tablet 50 Mg PO HS Aspirin Ec (Aspirin) 81 Mg Tablet.dr 81 Mg PO DAILY Gabapentin 800 Mg Tablet 800 Mg PO QID Omeprazole 40 Mg Capsule.dr 40 Mg PO DAILY Iron (Ferrous Sulfate) 325 Mg Tablet 325 Mg PO DAILY Lexapro (Escitalopram Oxalate) 5 Mg Tablet 5 Mg PO DAILY Fexofenadine Hcl 180 Mg Tablet 180 Mg PO DAILY Albuterol Sulfate Conc Neb Soln (Albuterol Sulfate) 2.5 Mg/0.5 Ml Vial.neb 2.5 Mg NEB Q4HRS PRN Simvastatin 40 Mg Tablet 40 Mg PO HS Symbicort 160-4.5 Mcg Inhaler (Budesonide/Formoterol Fumarate) 10.2 Gm Hfa.aer.ad 2 Puff IH BID Vital Signs Vital Signs Date Time Temp Pulse Resp B/P (MAP) Pulse Ox O2 Delivery O2 Flow Rate FiO2 01/23/20 10:16 Room Air 01/23/20 09:18 83 117/46 01/23/20 07:00 98.1 16 94 98.1 Labs Laboratory Tests Test 01/21/20 12:03 01/21/20 17:39 01/21/20 20:53 01/22/20 08:11 Glucose (Fingerstick) 196 mg/dL (70-99) 150 mg/dL (70-99) 245 mg/dL (70-99) 335 mg/dL (70-99) Test 01/22/20 11:32 01/22/20 12:05 01/22/20 16:43 01/22/20 20:38 Glucose (Fingerstick) 205 mg/dL (70-99) 133 mg/dL (70-99) 171 mg/dL (70-99) White Blood Count 7.2 x10^3/uL (4.0-11.0) Red Blood Count 4.44 x10^6/uL (3.50-5.40) Hemoglobin 12.1 g/dL (12.0-15.5) Hematocrit 37.6 % (36.0-47.0) Mean Corpuscular Volume 85 fL (79-100) Mean Corpuscular Hemoglobin 27 pg (25-35) Mean Corpuscular Hemoglobin Concent 32 g/dL (31-37) Red Cell Distribution Width 15.6 % (11.5-14.5) Platelet Count 247 x10^3/uL (140-400) Neutrophils (%) (Auto) 50 % (31-73) Lymphocytes (%) (Auto) 39 % (24-48) Monocytes (%) (Auto) 8 % (0-9) Eosinophils (%) (Auto) 3 % (0-3) Basophils (%) (Auto) 1 % (0-3) Neutrophils # (Auto) 3.6 x10^3/uL (1.8-7.7) Lymphocytes # (Auto) 2.8 x10^3/uL (1.0-4.8) Monocytes # (Auto) 0.5 x10^3/uL (0.0-1.1) Eosinophils # (Auto) 0.2 x10^3/uL (0.0-0.7) Basophils # (Auto) 0.0 x10^3/uL (0.0-0.2) Sodium Level 143 mmol/L (136-145) Potassium Level 3.9 mmol/L (3.5-5.1) Chloride Level 106 mmol/L (98-107) Carbon Dioxide Level 32 mmol/L (21-32) Anion Gap 5 (6-14) Blood Urea Nitrogen 16 mg/dL (7-20) Creatinine 0.8 mg/dL (0.6-1.0) Estimated GFR (Cockcroft-Gault) 77.2 Glucose Level 186 mg/dL (70-99) Hemoglobin A1c 12.8 % (4.8-5.6) Calcium Level 8.6 mg/dL (8.5-10.1) Test 01/23/20 07:47 01/23/20 11:50 Glucose (Fingerstick) 167 mg/dL (70-99) 313 mg/dL (70-99) Laboratory Tests Test 01/22/20 12:05 01/22/20 16:43 01/22/20 20:38 01/23/20 07:47 White Blood Count 7.2 x10^3/uL (4.0-11.0) Red Blood Count 4.44 x10^6/uL (3.50-5.40) Hemoglobin 12.1 g/dL (12.0-15.5) Hematocrit 37.6 % (36.0-47.0) Mean Corpuscular Volume 85 fL (79-100) Mean Corpuscular Hemoglobin 27 pg (25-35) Mean Corpuscular Hemoglobin Concent 32 g/dL (31-37) Red Cell Distribution Width 15.6 % (11.5-14.5) Platelet Count 247 x10^3/uL (140-400) Neutrophils (%) (Auto) 50 % (31-73) Lymphocytes (%) (Auto) 39 % (24-48) Monocytes (%) (Auto) 8 % (0-9) Eosinophils (%) (Auto) 3 % (0-3) Basophils (%) (Auto) 1 % (0-3) Neutrophils # (Auto) 3.6 x10^3/uL (1.8-7.7) Lymphocytes # (Auto) 2.8 x10^3/uL (1.0-4.8) Monocytes # (Auto) 0.5 x10^3/uL (0.0-1.1) Eosinophils # (Auto) 0.2 x10^3/uL (0.0-0.7) Basophils # (Auto) 0.0 x10^3/uL (0.0-0.2) Sodium Level 143 mmol/L (136-145) Potassium Level 3.9 mmol/L (3.5-5.1) Chloride Level 106 mmol/L (98-107) Carbon Dioxide Level 32 mmol/L (21-32) Anion Gap 5 (6-14) Blood Urea Nitrogen 16 mg/dL (7-20) Creatinine 0.8 mg/dL (0.6-1.0) Estimated GFR (Cockcroft-Gault) 77.2 Glucose Level 186 mg/dL (70-99) Hemoglobin A1c 12.8 % (4.8-5.6) Calcium Level 8.6 mg/dL (8.5-10.1) Glucose (Fingerstick) 133 mg/dL (70-99) 171 mg/dL (70-99) 167 mg/dL (70-99) Test 01/23/20 11:50 Glucose (Fingerstick) 313 mg/dL (70-99) Allergies Allergies Coded Allergies Type Severity Reaction Last Updated Verified carbidopa Allergy Intermediate 01/23/20 Yes Disposition/Orders: D/C to Home Hemodynamically unstable?: No Is patient in severe pain?: No Is NPO status required?: No GRAY CAMACHO MD January 23, 2020 11:59
[2020-01-23] MEDS ORDERED: DOXY100T PO (12:03)
[2020-01-23] MEDS ORDERED: LACT1CAP19 PO (12:03)
[2020-01-23] MEDS ORDERED: POLY17PO28 PO (12:03)
--- NOTE | 2020-01-23 12:04 | DISCH ---
DISCHARGE INSTRUCTIONS Condition on Discharge Condition on Discharge: Stable Activity After Discharge Activity Instructions for Disc: No restrictions Lifting Instructions after Dis: No heavy lifting, No pulling or pushing Exercise Instruction after Dis: Progress as tolerated Driving Instructions after Dis: Do not drive Weight Bearing Status after Di: No restrictions Diet after Discharge Diet after Discharge: Diabetic No Calorie Level Diet Texture: Regular Liquid Texture: Thin Liquid Swallowing Supervision: None needed Wound Incision Care Wound/Incision Care: Other, see below Checks after Discharge Checks after discharge: Check blood press - daily, Check blood sugar, ac/hs, Check your Temp as needed Contacting the DR. after DC Call your doctor for: If your condition worsens Follow-Up Follow up with: pcp and endocrinology soon Treatment/Equipment after DC Adaptive Equipment Issued: None GRAY CAMACHO MD January 23, 2020 12:04
--- NOTE | 2020-01-23 14:02 | NUR ---
Pt discharged home with self care. Discharge instructions and prescriptions discussed. Pt verbalized understanding. IV removed. Pt taken to main entrance and was secured in car with son.
== END 2020-01-23 14:55 | disposition home or self-care (01) | DRG 73 ==
LOC: ER 09:32 → ED HOLD 11:00 → 6 SOUTH 14:07 → 1 WEST ICU 01-20 14:42 → 4 NORTH 01-21 16:55
PROVIDERS: ADMIT Internal Medicine; ATTEND Internal Medicine
DX: E11.43 Type 2 diabetes mellitus with diabetic autonomic (poly)neuropathy (principal); G93.41 Metabolic encephalopathy; L03.90 Cellulitis, unspecified; E87.1 Hypo-osmolality and hyponatremia; J98.11 Atelectasis; N39.0 Urinary tract infection, site not specified; B02.9 Zoster without complications; D06.9 Carcinoma in situ of cervix, unspecified; E61.1 Iron deficiency; E66.9 Obesity, unspecified; E78.00 Pure hypercholesterolemia, unspecified; E78.5 Hyperlipidemia, unspecified; F32.9 Major depressive disorder, single episode, unspecified; F41.9 Anxiety disorder, unspecified; G25.81 Restless legs syndrome; G43.909 Migraine, unspecified, not intractable, without status migrainosus; G89.4 Chronic pain syndrome; I25.10 Atherosclerotic heart disease of native coronary artery without angina pectoris; I48.91 Unspecified atrial fibrillation; K21.9 Gastro-esophageal reflux disease without esophagitis; K31.84 Gastroparesis; I11.0 Hypertensive heart disease with heart failure; K59.00 Constipation, unspecified; K76.0 Fatty (change of) liver, not elsewhere classified; N80.9 Endometriosis, unspecified; Z68.36 Body mass index [BMI] 36.0-36.9, adult; Z79.4 Long term (current) use of insulin; J44.9 Chronic obstructive pulmonary disease, unspecified; Z20.828 Contact with and (suspected) exposure to other viral communicable diseases; Z79.891 Long term (current) use of opiate analgesic; Z80.9 Family history of malignant neoplasm, unspecified; Z82.49 Family history of ischemic heart disease and other diseases of the circulatory system; Z83.3 Family history of diabetes mellitus; Z85.41 Personal history of malignant neoplasm of cervix uteri; Z87.891 Personal history of nicotine dependence; Z90.710 Acquired absence of both cervix and uterus; Z98.891 History of uterine scar from previous surgery
CPT/HCPCS: 36415; 74177; 78264; 80048; 80053; 81001; 82010; 82962; 83036; 83605; 83690; 83735; 84484; 85025; 87086; 87186; 87635; 93005; 96361; 96374; 96375; 99285; A9541; J0696; J1815; J1885; J2405; J3010; J7030; Q0162; Q9967; G0378; Q0163

== ENCOUNTER → 2021-03-17 | Outpatient (CLI) | payer MEDICARE, MEDICAID ==
[2021-01-03 11:00] VITALS: BP 152/68
[~2021-03-17] MED LIST changes: +ACET325T21 PO; -ACYC800T PO; +ACYC800T88 PO; +APIX5TAB PO; -ASPI-612 PO; +ASPI-886 PO; +BENZ-8 PO; +CALC200T23 PO; +CEPH500T PO; +CLON0.5T PO; +DEXA6TAB6 PO; +DOXY100T PO; +DULO60CA6 PO; +FENO145T3 PO; +HYDR-2761 PO; +HYDR50CA2 PO; +INSU100V35 SQ; +LACT1CAP19 PO; -LISI-334 PO; -LISI-338 PO; +LISI-517 PO; +LISI10TA16 PO; -LISI10TA2 PO; +LISI20TA18 PO; -LISI40TA2 PO; +LISI40TA6 PO; +MAG30ORA2 PO; -OMEP40CA45 PO; +OMEP40CA7 PO; +OXYB10TA26 PO; +POLY17PO52 PO; +QUET50TA5 PO; -ZOLP12.54 PO; +ZOLP12.56 PO
--- NOTE | 2021-03-17 15:13 | KCIC ---
EXAM: Right knee, 3 views. HISTORY: Pain. COMPARISON: None. FINDINGS: 3 views of the right knee are obtained. There is no fracture, dislocation or subluxation. T here is no joint effusion. There is enthesopathy along the anterior tibial tubercle. IMPRESSION: No acute osseous finding. Electronically signed by: Deisi Gonzalez MD (03/17/2021 3:11 PM) [id number]
== END ==
LOC: KCIC 14:49
PROVIDERS: ATTEND Nurse Practitioner Family
DX: M76.891 Other specified enthesopathies of right lower limb, excluding foot (principal)
CPT/HCPCS: 73562

== ENCOUNTER 2021-07-14 16:13 | Inpatient (IN) | payer MEDICARE, MEDICAID ==
[~2021-07-14] VITALS: Ht 160 cm; Wt 95.2 kg
[~2021-07-14 16:13] MED LIST changes: +CYCL10TA19 PO; -CYCL10TA2 PO; -DULO60CA6 PO; +DULO60CA7 PO; -LISI-517 PO; +LISI5TAB15 PO; +TIZA-75 PO; -TIZA4TAB2 PO
--- NOTE | 2021-07-14 16:34 | PHYS DOC ---
Past Medical History Past Medical History: A-Fib, Anxiety, Asthma, COPD, Depression, Diabetes-Type II, High Cholesterol, Hypertension Additional Past Medical Histor: NEUROPATHY; RLS (FARRAH VIRAMONTES DO) Past Medical History: A-Fib, COPD, Diabetes-Type II, Hypertension (JENNI GARCIA DO) Past Surgical History: , Hysterectomy (FARRAH VIRAMONTES DO) Smoking Status: Never Smoker Alcohol Use: None Drug Use: None (FARRAH VIRAMONTES DO) Smoking Status: Current Every Day Smoker Alcohol Use: None Drug Use: None (JENNI GARCIA DO) General Adult EDM: Chief Complaint: MULTIPLE COMPLAINTS HPI: HPI: Patient is a 46-year-old female presenting via EMS for altered mentation. This is an acute issue that started 1 day prior. Majority of history obtained from EMS as patient is a poor historian. Patient had reportedly been suffering from symptoms concerning for Covid, URI and GI in nature for several days with incre ased shortness of breath and cough for past 72 hours. Patient also developed fevers greater than 100.4 that were able to be resolved with Tylenol at that time. 24 hours ago, patient's overall mentation deteriorated baseline, was reportedly a lot more confused and talking inappropriately which is not her baseline. There was no reported trauma, major change in medication or other concerning changes in baseline health. EMS was called by family member given their concern today. On arrival, patient was febrile, tachycardic with a [id number] glucose reading greater than 500. Patient was subsequently transferred to our ER for evaluation. On arrival, patient states that she has a cough in her stomach hurts. She is not able to definitively confirm if she got vaccinated against COVID-19 (FARRAH VIRAMONTES DO) Review of Systems: Review of Systems: Fourteen body systems of review of systems have been reviewed. See HPI for pertinent positives and negative responses, other mora all other systems are negative, non-pertinent or non-contributory (FARRAH VIRAMONTES DO) Heart Score: C/O Chest Pain: No Risk Factors: Risk Factors: DM, Current or recent (<one month) smoker, HTN, HLP, family history of CAD, obesity. Risk Scores: Score 0 - 3: 2.5% MACE over next 6 weeks - Discharge Home Score 4 - 6: 20.3% MACE over next 6 weeks - Admit for Clinical Observation Score 7 - 10: 72.7% MACE over next 6 weeks - Early Invasive Strategies (FARRAH VIRAMONTES ) C/O Chest Pain: Yes HEART Score for Chest Pain: HEART Score for Chest Pain Response (Comments) Value History Moderately Suspicious 1 ECG Nonspecific Repolarizatio 1 Age >45 - < 65 1 Risk Factors >3 Risk Factors or Hx CAD 2 Troponin >1-<3x Normal Limit 1 Total 6 (RADHAJENNI Guzman BRINK) Allergies: Allergies: Allergies Coded Allergies Type Severity Reaction Last Updated Verified carbidopa Allergy Intermediate 01/23/20 Yes (WANDERMIKAYLAShari BRINK) Physical Exam: PE: Constitutional: Age-appropriate, overweight, appears uncomfortable but nontoxic in overall appearance HENT: Normocephalic, atraumatic, bilateral external ears normal, oropharynx dry, no oral exudates, nose normal. Eyes: PERRLA, EOMI, conjunctiva normal, no discharge. Neck: Normal range of motion, no tenderness, supple, no stridor. Cardiovascular: Heart rate tachycardic, sinus rhythm, no murmurs rubs or gallops Lungs & Thorax: Slight increased work of breathing without any obvious respiratory distress, retractions or other concerning findings. There are crackles present in bilateral bases Abdomen: Bowel sounds normal, soft and protuberant, no tenderness, no masses, no pulsatile masses. Nonsurgical abdomen, no peritoneal signs Skin: Warm, dry, no erythema, no rash. Back: No tenderness, no CVA tenderness. Extremities: No tenderness, no cyanosis, no clubbing, ROM intact, no edema. Neurologic: Alert and oriented to person and place but not time which is not her normal baseline, cranial nerves II through XII intact, normal motor & sensory function, no focal deficits noted. Psychologic: Anxious affect and mood (WANDERFARRAH DO) Current Patient Data: Labs: Laboratory Tests Test 07/14/21 16:22 07/14/21 17:30 SARS-CoV-2 Antigen (Rapid) Negative White Blood Count 10.8 x10^3/uL Red Blood Count 4.94 x10^6/uL Hemoglobin 13.4 g/dL Hematocrit 42.0 % Mean Corpuscular Volume 85 fL Mean Corpuscular Hemoglobin 27 pg Mean Corpuscular Hemoglobin Concent 32 g/dL Red Cell Distribution Width 14.1 % Platelet Count 176 x10^3/uL Neutrophils (%) (Auto) 82 % Lymphocytes (%) (Auto) 9 % Monocytes (%) (Auto) 8 % Eosinophils (%) (Auto) 0 % Basophils (%) (Auto) 1 % Neutrophils # (Auto) 8.9 x10^3/uL Lymphocytes # (Auto) 1.0 x10^3/uL Monocytes # (Auto) 0.9 x10^3/uL Eosinophils # (Auto) 0.0 x10^3/uL Basophils # (Auto) 0.1 x10^3/uL Current Medications Medications (Trade) Dose Ordered Sig/Mo Route PRN Reason Start Time Stop Time Status Last Admin Dose Admin Sodium Chloride 1,000 ml @ 1,000 mls/hr 1X ONCE IV 07/14/21 16:45 07/14/21 17:44 DC 07/14/21 17:43 Acetaminophen (Tylenol) 1,000 mg 1X ONCE PO 07/14/21 16:45 07/14/21 16:46 DC 07/14/21 17:43 Aspirin (Nona Aspirin) 325 mg 1X ONCE PO 07/14/21 16:45 07/14/21 16:46 DC 07/14/21 17:42 Vital Signs: Vital Signs Date Time Temp Pulse Resp B/P (MAP) Pulse Ox O2 Delivery O2 Flow Rate FiO2 07/14/21 16:13 101.9 113 20 147/82 (103) Nasal Cannula 2.0 101.9 07/14/21 16:52 96 Vital Signs Date Time Temp Pulse Resp B/P (MAP) Pulse Ox O2 Delivery O2 Flow Rate FiO2 07/14/21 17:16 116 25 163/85 (111) 96 Nasal Cannula 2.0 07/14/21 16:13 101.9 101.9 (FARRAH VIRAMONTES DO) EKG: EKG: EKG ordered and interpreted by myself as sinus tachycardia at 115 bpm, unremarkable intervals, left axis deviation, no obvious ischemic findings, no STEMI (FARRAH VIRAMONTES DO) Radiology/Procedures: Radiology/Procedures: [] (FARRAH VIRAMONTES DO) Radiology/Procedures: IMAGING REPORT Signed PATIENT: ARLEN CHÁVEZ ACCOUNT: [id number] : 1975 LOCATION: ER AGE: 46 SEX: F EXAM STATUS: REG ER ORD. PHYSICIAN: FARRAH VIRAMONTES DO REASON: SHOB PROCEDURE: CHEST AP ONLY EXAMINATION: Chest radiograph. VIEWS: Single AP view of the chest COMPARISON: 12/27/2020 INDICATION:46 years, Female, SHOB. FINDINGS: Hypovolemic exam. Patient is rotated obscuring evaluation of the mediastinal contour. Partially obscured normal cardiomediastinal silhouette. Scattered hazy airspace opacities some of which may be secondary to soft tissue summation. There is obscuration of the left costophrenic angle. No sizable pleural effusion. No pneumothorax. No acute osseous process. IMPRESSION: Hypovolemic exam with scattered bilateral hazy airspace opacities which are likely related to soft tissue summation and atelectasis developing infiltrates cannot be excluded. Electronically signed by: Zeke Adkins DO (07/14/2021 7:15 PM) [facility] DICTATED and SIGNED BY: ZEKE ADKINS DO DATE: 07/14/21 [id number] (JENNI GARCIA DO) Course & Med Decision Making: Course & Med Decision Making Airway patent, breathing unlabored, IV access and vitals obtained concerning for hypoxia on room air and tachycardia HPI limited, physical exam and comprehensive ER work-up started At this time in care, my shift was ending. Comprehensive signout from information none thus far discussed with oncoming physician. Please defer to Dr. Garcia's documentation regarding future care patient in ER setting (FARRAH VIRAMONTES DO) Course & Med Decision Making This patient was initially seen by Dr. Viramontes. Please see his note for further details of H&P. I assumed care at 1800 tonight. I spoke with the patient. She is sleepy but arouses easily and is able to converse. She admits that she does not routinely check her blood sugar, and she reports that she has been out of insulin "for a while." She reports that her last A1c was 15.8, though she admits she has not seen her primary care physician "in a while." She has chronically uncontrolled Beatties and chronic hyperglycemia. She reports that she does not take any oral hypoglycemic agents and is insulin-dependent only. She confirms type 2 diabetes status. She denies any nausea or vomiting or diarrhea or constipation. She denies abdominal pain. She reports having some left-sided chest pain for the past few days as well as a cough. She has had fevers and chills today. She has objective fever here today, which has not been treated. Her last Tylenol dose was earlier this morning, she has had no antipyretics in the last 8 hours at least. I ordered Tylenol. I ordered fluid boluses. I ordered subcu and IV insulin for treatment of severe hyperglycemia. She does have some mild acute renal insufficiency. She also has some mild hyperkalemia. IV fluid resuscitation and insulin should improve the potassium. Blood cultures are ordered. I ordered IV Rocephin and azithromycin for treatment of community-acquired pneumonia. I discussed the findings, differential diagnosis and plan of care with her. I have recommended admission, and she is comfortable with this. She is accepted for admission by Dr. Ambriz. He is comfortable with just insulin boluses at this time, no drip is ordered or requested at this time. Anion gap is 10. The patient denies any active chest pain currently. Tachycardia is improving. Blood pressure is stable. She is somewhat sleepy, but she admits to taking scheduled Ultram today for chronic pain. She denies overdose. She is saturating well on supplemental O2/NC. Records from previous admission are reviewed, and she has a history of COPD and has required supplemental oxygen treatment when hospitalized previously. (JENNI GARCIA DO) Dragon Disclaimer: Parminder Disclaimer: This electronic medical record was generated, in whole or in part, using a voice recognition dictation system. (FARRAH VIRAMONTES DO) Departure Departure Impression: Primary Impression: Community acquired pneumonia Qualified Codes: J18.9 - Pneumonia, unspecified organism Additional Impressions: Hyperosmolar hyperglycemic state (HHS) Hyperkalemia Acute kidney injury Generalized weakness Uncontrolled diabetes mellitus Qualified Codes: E11.65 - Type 2 diabetes mellitus with hyperglycemia Requires supplemental oxygen Disposition: ADMITTED INPATIENT Admitting Physician: HIMS (JENNI GARCIA DO) Condition: GUARDED Referrals: JANEEN SEALS APRN (PCP) FARRAH VIRAMONTES DO Jul 14, 2021 16:34 JENNI GARCIA DO Jul 14, 2021 19:22
--- NOTE | 2021-07-14 16:35 | EKG ---
[facility] [address] [place] [address] Test Date: 2021-07-14 Test Time: 16:27:53 Pat Name: ARLEN CHÁVEZ Department: Room: Gender: F Area Representative: : 1975 Requested By: FARRAH VIRAMONTES Order Number: [id number] Reading MD: Flex Lopez Measurements Intervals [place] Rate: 115 P: 178 CA: 144 QRS: -26 QRSD: 84 T: 17 QT: 310 QTc: 431 Interpretive Statements SINUS TACHYCARDIA LEFTWARD AXIS Electronically Signed On 07-15-2021 13:26:50 CDT by Flex Lopez
[2021-07-14] MEDS ORDERED: ASPIRIN 325 MG TABLET PO ONE (16:45)
[2021-07-14] MEDS ORDERED: ACETAMINOPHEN 500 MG TABLET PO ONE ×2 (16:45→18:45)
[2021-07-14] MEDS ORDERED: IV NORMAL SALINE 1000ML BAG 1,000 ML IV ONE ×5 (16:45→21:15)
[2021-07-14 17:43] LABS: BASO # 0.1 x10^3/uL (0.0-0.2); BASO % 1 % (0-3); EOS % 0 % (0-3); HEMOGLOBIN 13.4 g/dL (12.0-15.5); LYMPH % 9 % (24-48); MEAN CORPUSCULAR HEMOGLOBIN 27 pg (25-35); MEAN CORPUSCULAR HGB CONC 32 g/dL (31-37); MEAN CORPUSCULAR VOLUME 85 fL (79-100); MONO # 0.9 x10^3/uL (0.0-1.1); MONO % 8 % (0-9); NEUT # 8.9 x10^3/uL (1.8-7.7); NEUT % 82 % (31-73); PLATELET COUNT 176 x10^3/uL (140-400); RED BLOOD COUNT 4.94 x10^6/uL (3.50-5.40); RED CELL DISTRIBUTION WIDTH 14.1 % (11.5-14.5); WHITE BLOOD COUNT 10.8 x10^3/uL (4.0-11.0)
[2021-07-14] MEDS ORDERED: IV NORMAL SALINE 500ML BAG 500 ML IV ONE (18:00)
[2021-07-14 18:09] LABS: ALBUMIN 3.4 g/dL (3.4-5.0); ALBUMIN/GLOBULIN RATIO 0.7 (1.0-1.7); CREATININE 1.8 mg/dL (0.6-1.0); POTASSIUM 5.4 mmol/L (3.5-5.1); TOTAL BILIRUBIN 0.8 mg/dL (0.2-1.0); TOTAL PROTEIN 8.2 g/dL (6.4-8.2)
[2021-07-14 18:32] LABS: INFLUENZA A PATIENT NEGATIVE (NEGATIVE); INFLUENZA B PATIENT NEGATIVE (NEGATIVE)
[2021-07-14] MEDS ORDERED: cefTRIAXone IV Push 1 GM VIAL. IVP ONE (18:45)
[2021-07-14] MEDS ORDERED: INSULIN LISPRO 300 UNITS/3 ML VIAL. SQ ONE ×2 (18:45→22:30)
[2021-07-14] MEDS ORDERED: AZITHROMYCIN 250 MG TABLET. PO ONE (18:45)
[2021-07-14] MEDS ORDERED: guaiFENesin DM 200MG/20MG 10 ML SYRUP PO PRN (19:15)
[2021-07-14] MEDS ORDERED: ONDANSETRON PF 4 MG/2 ML VIAL. IVP PRN (19:15)
[2021-07-14] MEDS ORDERED: INSULIN REGULAR 100 UNIT/ML 3ML VIAL. IV ONE (19:15)
--- NOTE | 2021-07-14 19:16 | PDOC1 ---
History and Physical Date of Admission Date of Admission DATE: 07/14/21 TIME: 19:09 Identification/Chief Complaint Chief Complaint Confusion Source Source: Caregiver, Chart review History of Present Illness History of Present Illness Ms Banegas is a 46 yo F w/ PMHx diabetes type 2, history of clostridium difficile, history of MRSA, peripheral neuropathy, atrial fibrillation on warfarin therapy, coronary artery disease, hypertension, COPD, obesity, GERD, history of cervical cancer, depression, anxiety, anemia presenting via EMS from home for altered mentation. She has had tremors, weakness and glucose readings in the 500s and fever 102F at home for the past 24 hours prior to arrival. She has had increased shortness of breath and cough as well as diarrhea for past 72 hours. EMS was called by family member given their concern about patient hallucinating and talking to people and animals that aren't there today. On arrival, patient was febrile, tachycardic with a dlpyt-do-tqbz glucose reading greater than 500. Her only audible complaint is stomach pain and cough. She is not able to definitively confirm if she got vaccinated against COVID-19 but she did have COVID 19 in December 2020. Labs with WBC 10.8, Hb 13.4, platelets 176, NA 126, K5.4, BUN 22, CR 1.8, glucose 904, high-sensitivity troponin 420, procalcitonin 1.88, UDS negative, UA positive esterase and nitrates, rapid influenza negative, rapid COVID-19 negative EKG sinus tachycardia at 115 bpm, unremarkable intervals, left axis deviation, no obvious ischemic findings, no ST elevation or TWI Chest radiograph scattered bilateral opacities. Given aggressive IVF, rocephin, IV insulin. Admitted for further care. Past Medical History Cardiovascular: HTN Pulmonary: COPD CENTRAL NERVOUS SYSTEM: Periperal neuropathy GI: Constipation, GERD Heme/Onc: Anemia NOS, Cancer Psych: Anxiety, Depression Musculoskeletal: low back pain, Osteoarthritis Rheumatologic: Other Infectious disease: Other Renal/: Other Endocrine: Diabetes Past Surgical History Past Surgical History: , Hysterectomy Family History Family History: No Significant Social History Smoke: No ALCOHOL: none Drugs: None Current Medications Current Medications Current Medications Sodium Chloride 1,000 ml @ 1,000 mls/hr 1X ONCE IV Last administered on 07/14/21at 17:43; Start 07/14/21 at 16:45; Stop 07/14/21 at 17:44; Status DC Acetaminophen (Tylenol) 1,000 mg 1X ONCE PO Last administered on 07/14/21at 17:43; Start 07/14/21 at 16:45; Stop 07/14/21 at 16:46; Status DC Aspirin (Nona Aspirin) 325 mg 1X ONCE PO Last administered on 07/14/21at 17:42; Start 07/14/21 at 16:45; Stop 07/14/21 at 16:46; Status DC Sodium Chloride 1,000 ml @ 1,000 mls/hr 1X ONCE IV ; Start 07/14/21 at 18:00; Stop 07/14/21 at 18:59; Status DC Sodium Chloride 500 ml @ 500 mls/hr 1X ONCE IV ; Start 07/14/21 at 18:00; Stop 07/14/21 at 18:59; Status DC Sodium Chloride 1,000 ml @ 1,000 mls/hr 1X ONCE IV ; Start 07/14/21 at 18:45; Stop 07/14/21 at 19:44 Ceftriaxone Sodium (Rocephin) 2 gm 1X ONCE IVP ; Start 07/14/21 at 18:45; Stop 07/14/21 at 18:47; Status DC Azithromycin (Zithromax) 500 mg 1X ONCE PO ; Start 07/14/21 at 18:45; Stop 07/14/21 at 18:47; Status DC Insulin Human Lispro (HumaLOG) 10 units 1X ONCE SQ ; Start 07/14/21 at 18:45; Stop 07/14/21 at 18:47; Status DC Acetaminophen (Tylenol) 1,000 mg 1X ONCE PO ; Start 07/14/21 at 18:45; Stop 07/14/21 at 18:48; Status DC Insulin Human Regular (HumuLIN R VIAL) 10 unit 1X ONCE IV ; Start 07/14/21 at 19:15; Stop 07/14/21 at 19:16 Active Scripts Active Doxycycline Hyclate 100 Mg Tablet 1 Tab PO BID 7 Days Decadron (Dexamethasone) 6 Mg Tablet 6 Mg PO DAILY08 7 Days Admelog (Insulin Lispro) 100 Unit/1 Ml Vial 0 Units SQ TIDWMEALS 30 Days Lantus (Insulin Glargine,Hum.rec.anlog) 100 Unit/1 Ml Vial 70 Unit SQ BID 30 Days Mag-Al Plus Xs Suspension (Mag Hydrox/Al Hydrox/Simeth) 30 Ml Oral.susp 30 Ml PO PRN Q3HRS PRN 14 Days Calcium Carbonate 200 Mg Tab.chew 500 Mg PO PRN Q3HRS PRN 30 Days Benzonatate 100 Mg Capsule 100 Mg PO RQT047 30 Days Acetaminophen 325 Mg Tablet 650 Mg PO PRN Q6HRS PRN 30 Days Culturelle (Lactobacillus Rhamnosus Gg) 1 Each Cap.sprink 1 Cap PO BID 30 Days Polyethylene Glycol 3350 17 Gm Powd.pack 17 Gm PO DAILY 14 Days Zofran Odt (Ondansetron) 4 Mg Tab.rapdis 1 Tab SL Q8HRS PRN Diltiazem 24Hr Cd (Diltiazem HCl) 180 Mg Cap.er.24h 180 Mg PO DAILY Reported Fenofibrate (Fenofibrate Nanocrystallized) 145 Mg Tablet 1 Tab PO DAILY Tizanidine Hcl 4 Mg Tablet 2 Tab PO QHS Oxybutynin Chloride Er (Oxybutynin Chloride) 10 Mg Tab.er.24 1 Tab PO DAILY Seroquel (Quetiapine Fumarate) 50 Mg Tablet 1 Tab PO QHS Metoprolol Tartrate 25 Mg Tablet 1 Tab PO BID Cymbalta (Duloxetine Hcl) 60 Mg Capsule.dr 1 Cap PO DAILY Klonopin (Clonazepam) 0.5 Mg Tablet 0.5 Mg PO PRN TID PRN Eliquis (Apixaban) 5 Mg Tablet 5 Mg PO BID Fluticasone Propionate Nasal [place] (Fluticasone Propionate) 16 Gm [place].susp 2 Spr MANDIE BID Clonidine Hcl 0.1 Mg Tablet 1 Tab PO BID Topiramate 25 Mg Tablet 1 Tab PO BID Humalog (Insulin Lispro) 100 Unit/1 Ml Cartridge 55 Unit SQ TIDWMEALS Trazodone Hcl 50 Mg Tablet 50 Mg PO HS Aspirin Ec (Aspirin) 81 Mg Tablet.dr 81 Mg PO DAILY Gabapentin 800 Mg Tablet 800 Mg PO QID Omeprazole 40 Mg Capsule.dr 40 Mg PO DAILY Iron (Ferrous Sulfate) 325 Mg Tablet 325 Mg PO DAILY Albuterol Sulfate Conc Neb Soln (Albuterol Sulfate) 2.5 Mg/0.5 Ml Vial.neb 2.5 Mg NEB Q4HRS PRN Symbicort 160-4.5 Mcg Inhaler (Budesonide/Formoterol Fumarate) 10.2 Gm Hfa.aer.ad 2 Puff IH BID Allergies Allergies: Coded Allergies: carbidopa (Verified Allergy, Intermediate, 01/23/20) ROS Review of System Unable to obtain due to confusion, attempted point ROS Physical Exam General: Alert, Cooperative, moderate distress HEENT: Atraumatic, PERRLA, EOMI, Mucous membr. moist/pink Lungs: Other (bibasilar crackles) Heart: S1S2, RRR, no thrills, no rubs, no gallops, no murmurs Abdomen: Normal bowel sounds, Soft, No tenderness, No hepatosplenomegaly, No masses Rectal Exam: not examined Extremities: No clubbing, No cyanosis, No edema, Normal pulses, No tenderness/swelling Skin: No rashes, No breakdown, No significant lesion Neuro: Normal speech, Strength at 5/5 X4 ext, Normal tone, Sensation intact, Cranial nerves 3-12 NL, Reflexes 2+ Psych/Mental Status: Other (Confused) Vitals Vitals Vital Signs Date Time Temp Pulse Resp B/P (MAP) Pulse Ox O2 Delivery O2 Flow Rate FiO2 07/14/21 17:16 116 25 163/85 (111) 96 Nasal Cannula 2.0 07/14/21 16:13 101.9 101.9 Labs Labs Laboratory Tests Test 07/14/21 16:22 07/14/21 16:23 07/14/21 17:30 SARS-CoV-2 Antigen (Rapid) Negative (NEGATIVE) Influenza Type A Antigen Negative (NEGATIVE) Influenza Type B Antigen Negative (NEGATIVE) White Blood Count 10.8 x10^3/uL (4.0-11.0) Red Blood Count 4.94 x10^6/uL (3.50-5.40) Hemoglobin 13.4 g/dL (12.0-15.5) Hematocrit 42.0 % (36.0-47.0) Mean Corpuscular Volume 85 fL (79-100) Mean Corpuscular Hemoglobin 27 pg (25-35) Mean Corpuscular Hemoglobin Concent 32 g/dL (31-37) Red Cell Distribution Width 14.1 % (11.5-14.5) Platelet Count 176 x10^3/uL (140-400) Neutrophils (%) (Auto) 82 % (31-73) Lymphocytes (%) (Auto) 9 % (24-48) Monocytes (%) (Auto) 8 % (0-9) Eosinophils (%) (Auto) 0 % (0-3) Basophils (%) (Auto) 1 % (0-3) Neutrophils # (Auto) 8.9 x10^3/uL (1.8-7.7) Lymphocytes # (Auto) 1.0 x10^3/uL (1.0-4.8) Monocytes # (Auto) 0.9 x10^3/uL (0.0-1.1) Eosinophils # (Auto) 0.0 x10^3/uL (0.0-0.7) Basophils # (Auto) 0.1 x10^3/uL (0.0-0.2) Sodium Level 126 mmol/L (136-145) Potassium Level 5.4 mmol/L (3.5-5.1) Chloride Level 90 mmol/L (98-107) Carbon Dioxide Level 26 mmol/L (21-32) Anion Gap 10 (6-14) Blood Urea Nitrogen 22 mg/dL (7-20) Creatinine 1.8 mg/dL (0.6-1.0) Estimated GFR (Cockcroft-Gault) 30.0 BUN/Creatinine Ratio 12 (6-20) Glucose Level 904 mg/dL (70-99) Lactic Acid Level 1.8 mmol/L (0.4-2.0) Calcium Level 9.0 mg/dL (8.5-10.1) Total Bilirubin 0.8 mg/dL (0.2-1.0) Aspartate Amino Transf (AST/SGOT) 30 U/L (15-37) Alanine Aminotransferase (ALT/SGPT) 36 U/L (14-59) Alkaline Phosphatase 173 U/L (46-116) Troponin I High Sensitivity 420 ng/L (4-50) Total Protein 8.2 g/dL (6.4-8.2) Albumin 3.4 g/dL (3.4-5.0) Albumin/Globulin Ratio 0.7 (1.0-1.7) Ethyl Alcohol Level < 10 mg/dL (0-10) Acetone Level Sm pos (NEG) Laboratory Tests Test 07/14/21 16:22 07/14/21 16:23 07/14/21 17:30 SARS-CoV-2 Antigen (Rapid) Negative (NEGATIVE) Influenza Type A Antigen Negative (NEGATIVE) Influenza Type B Antigen Negative (NEGATIVE) White Blood Count 10.8 x10^3/uL (4.0-11.0) Red Blood Count 4.94 x10^6/uL (3.50-5.40) Hemoglobin 13.4 g/dL (12.0-15.5) Hematocrit 42.0 % (36.0-47.0) Mean Corpuscular Volume 85 fL (79-100) Mean Corpuscular Hemoglobin 27 pg (25-35) Mean Corpuscular Hemoglobin Concent 32 g/dL (31-37) Red Cell Distribution Width 14.1 % (11.5-14.5) Platelet Count 176 x10^3/uL (140-400) Neutrophils (%) (Auto) 82 % (31-73) Lymphocytes (%) (Auto) 9 % (24-48) Monocytes (%) (Auto) 8 % (0-9) Eosinophils (%) (Auto) 0 % (0-3) Basophils (%) (Auto) 1 % (0-3) Neutrophils # (Auto) 8.9 x10^3/uL (1.8-7.7) Lymphocytes # (Auto) 1.0 x10^3/uL (1.0-4.8) Monocytes # (Auto) 0.9 x10^3/uL (0.0-1.1) Eosinophils # (Auto) 0.0 x10^3/uL (0.0-0.7) Basophils # (Auto) 0.1 x10^3/uL (0.0-0.2) Sodium Level 126 mmol/L (136-145) Potassium Level 5.4 mmol/L (3.5-5.1) Chloride Level 90 mmol/L (98-107) Carbon Dioxide Level 26 mmol/L (21-32) Anion Gap 10 (6-14) Blood Urea Nitrogen 22 mg/dL (7-20) Creatinine 1.8 mg/dL (0.6-1.0) Estimated GFR (Cockcroft-Gault) 30.0 BUN/Creatinine Ratio 12 (6-20) Glucose Level 904 mg/dL (70-99) Lactic Acid Level 1.8 mmol/L (0.4-2.0) Calcium Level 9.0 mg/dL (8.5-10.1) Total Bilirubin 0.8 mg/dL (0.2-1.0) Aspartate Amino Transf (AST/SGOT) 30 U/L (15-37) Alanine Aminotransferase (ALT/SGPT) 36 U/L (14-59) Alkaline Phosphatase 173 U/L (46-116) Troponin I High Sensitivity 420 ng/L (4-50) Total Protein 8.2 g/dL (6.4-8.2) Albumin 3.4 g/dL (3.4-5.0) Albumin/Globulin Ratio 0.7 (1.0-1.7) Ethyl Alcohol Level < 10 mg/dL (0-10) Acetone Level Sm pos (NEG) VTE Prophylaxis Ordered VTE Prophylaxis Devices: Yes VTE Pharmacological Prophylaxi: Yes Assessment/Plan Assessment/Plan A/P: Acute encephalopathy - likely due to sepsis, hyperglycemia, will monitor mental status HHNKS - IV insulin, IV fluids, sliding scale, basal insulin Sepsis - due to UTI, prior with scalp abscesses, no clear-cut abscess to be found, may also have pneumonia. empiric rocephin+ doxycycline BIGG - vasomotor nephropathy from above. Will hydrate, monitor renal function Elevated troponin - likely demand ischemia. will trend Paroxysmal A-Fib - currently sinus Anxiety with depression - reconcile home meds Asthma with COPD - nebulizers when COVID 19 negative Diabetes-Type II - insulin as above High Cholesterol - statin Hypertension - cont home meds FEN - ADA diet PPX - heparin FULL CODE Dispo - inpatient Justifications for Admission Other Justification Acute respiratory failure with hypoxia, UTI, COVID-19 DUNG MEREDITH MD Jul 14, 2021 19:16
--- NOTE | 2021-07-14 19:18 | RAD ---
EXAMINATION: Chest radiograph. VIEWS: Single AP view of the chest COMPARISON: 12/27/2020 INDICATION:46 years, Female, SHOB. FINDINGS: Hypovolemic exam. Patient is rotated obscuring evaluation of the mediastinal contour. Partially obscu red normal cardiomediastinal silhouette. Scattered hazy airspace opacities some of which may be secon mahamed to soft tissue summation. There is obscuration of the left costophrenic angle. No sizable pleura l effusion. No pneumothorax. No acute osseous process. IMPRESSION: Hypovolemic exam with scattered bilateral hazy airspace opacities which are likely related to soft ti ssue summation and atelectasis developing infiltrates cannot be excluded. Electronically signed by: Maynor Adkins DO (07/14/2021 7:15 PM) [facility]
[2021-07-14 21:00] VITALS: BP 127/67
[2021-07-14 21:09] LABS: BILIRUBIN,URINE NEGATIVE (NEG); CLARITY,URINE CLEAR; COLOR,URINE YELLOW; NITRITE,URINE POSITIVE (NEG); PROTEIN,URINE NEGATIVE (NEG-TRACE); UROBILINOGEN,URINE 0.2 mg/dL (0.2 mg/dL)
[2021-07-14 21:11] LABS: BACTERIA,URINE MODERATE /HPF (0-FEW); RBC,URINE OCC /HPF (0-2); WBC,URINE >40 /HPF (0-4)
[2021-07-14 21:14] LABS: BARBITURATES NEG (NEG); BENZODIAZEPINES NEG (NEG); CANNABINOIDS NEG (NEG); COCAINE NEG (NEG); METHADONE NEG (NEG); OPIATES NEG (NEG); PHENCYCLIDINE NEG (NEG)
[2021-07-14 21:15] LABS: AMPHETAMINE/METHAMPHETAMINE NEG (NEG)
[2021-07-14] MEDS ORDERED: CALCIUM CARBONATE 500 MG TAB.CHEW PO PRN (21:15)
[2021-07-14] MEDS ORDERED: INSULIN GLARGINE SYRINGE. SQ SCH (21:30)
[2021-07-14] MEDS ORDERED: DEXTROSE 50% 25 GM / 50ML DISP.SYRIN. IV PRN (21:30)
--- NOTE | 2021-07-14 21:30 | NUR ---
Pt was admitted to unit from ER with c/o confusion and AMS per family. Initial blood glucose was 908 in ER, 20 units of insulin administered. Pt is also admitted for PNA, elevated trop and BIGG. Pt is lethargic, unable to hold conversation, single responses at time of admission. V/S, SR/ST on telemetry, 2L NC, resting, pt states receiving 2 phizer vaccines, being tested for covid. A second blood glucose was taken in ER before transfer, results 772. Spoke with admitting physician Dr Jarrett, 50 units lantus, 25 units of lispro ordered and administered. 0100- Blood glucose rechecked, results 527, spoke with Dr. Jarrett, 19 units lispro ordered along with crowley catheter r/t skin breakdown. Bed in low/locked position, call light within reach, will continue to monitor for status changes.
[2021-07-14] MEDS: DOXYCYCLINE HYCLATE 100 MG in IV DEXTROSE 5% 100ML 100 ML IV SCH (22:39)
[2021-07-14] MEDS: traZODone 50 MG TABLET. PO SCH (22:42)
[2021-07-14] MEDS: APIXABAN 5 MG TABLET. PO SCH (22:42)
[2021-07-14] MEDS: METOPROLOL TART IMMED RELEASE 25 MG TABLET. PO SCH (22:42)
[2021-07-14] MEDS: traMADol 50 MG TABLET PO PRN (22:42)
[2021-07-14] MEDS: TOPIRAMATE 25 MG TABLET. PO SCH (22:43)
[2021-07-14 23:00] VITALS: BP 101/57
[2021-07-15] MEDS ORDERED: INSULIN LISPRO 300 UNITS/3 ML VIAL. SQ ONE (01:30)
[2021-07-15 01:42] LABS: BASO # 0.1 x10^3/uL (0.0-0.2); BASO % 1 % (0-3); EOS % 0 % (0-3); HEMATOCRIT 37.5 % (36.0-47.0); LYMPH # 1.2 x10^3/uL (1.0-4.8); LYMPH % 12 % (24-48); MEAN CORPUSCULAR HEMOGLOBIN 27 pg (25-35); MEAN CORPUSCULAR HGB CONC 32 g/dL (31-37); MEAN CORPUSCULAR VOLUME 84 fL (79-100); MONO # 0.8 x10^3/uL (0.0-1.1); MONO % 8 % (0-9); NEUT # 8.2 x10^3/uL (1.8-7.7); NEUT % 80 % (31-73); PLATELET COUNT 158 x10^3/uL (140-400); RED BLOOD COUNT 4.48 x10^6/uL (3.50-5.40); RED CELL DISTRIBUTION WIDTH 14.5 % (11.5-14.5); WHITE BLOOD COUNT 10.3 x10^3/uL (4.0-11.0)
[2021-07-15 01:53] LABS: CALCIUM 8.1 mg/dL (8.5-10.1); CREATININE 1.5 mg/dL (0.6-1.0); GFR 37.1
[2021-07-15 03:00] VITALS: BP 101/55
[2021-07-15 07:00] VITALS: BP 144/74
[2021-07-15] MEDS: ALBUTEROL SULFATE 2.5 MG/3 ML NEBU. NEB SCH ×4 (08:00→20:14)
[2021-07-15] MEDS: BUDESONIDE 0.5 MG/2 ML NEBU. NEB SCH ×2 (08:00→20:14)
[2021-07-15] MEDS: INSULIN LISPRO 300 UNITS/3 ML VIAL. SQ SCH ×5 (08:00→17:22)
[2021-07-15] MEDS: FLUTICASONE 50MCG/NASAL SPRAY 16GM BOTTLE. NS SCH ×2 (08:51→19:53)
[2021-07-15] MEDS: BENZONATATE 100 MG CAPSULE. PO SCH ×3 (08:51→19:54)
[2021-07-15] MEDS: ASPIRIN ENTERIC COATED 81 MG TABLET.DR. PO SCH (08:51)
[2021-07-15] MEDS: APIXABAN 5 MG TABLET. PO SCH ×2 (08:51→19:54)
[2021-07-15] MEDS: METOPROLOL TART IMMED RELEASE 25 MG TABLET. PO SCH ×2 (08:52→19:54)
[2021-07-15] MEDS: TOPIRAMATE 25 MG TABLET. PO SCH ×2 (08:52→19:53)
[2021-07-15] MEDS: INSULIN GLARGINE SYRINGE. SQ SCH ×2 (08:54→21:26)
[2021-07-15] MEDS: NYSTATIN TOPICAL POWDER 15GM BOTTLE. TP SCH ×2 (08:54→21:00)
[2021-07-15] MEDS: DOXYCYCLINE HYCLATE 100 MG in IV DEXTROSE 5% 100ML 100 ML IV SCH ×2 (08:57→19:53)
[2021-07-15] MEDS ORDERED: cefTRIAXone IV Push 1 GM VIAL. IVP ONE (09:30)
[2021-07-15] MEDS ORDERED: cefTRIAXone IV Push 1 GM VIAL. IVP SCH (10:15)
[2021-07-15 11:00] VITALS: BP 108/63
--- NOTE | 2021-07-15 13:53 | CONS ---
DATE OF CONSULTATION: 07/15/2021 REFERRING PHYSICIAN: Dr. Kelly. REASON FOR CONSULTATION: Gram-negative bacteremia. HISTORY OF PRESENT ILLNESS: A 46-year-old female presented to the ER via EMS for altered mental status, which started a day prior to admission. The patient is a poor historian. The patient's temperature was 100.4, normal white count, lactate not done. UA showed pyuria. Chest x-ray revealed a hypovolemic scattered bilateral hazy airspace disease, no acute infiltrate, atelectasis. The patient was given IV fluid resuscitation. The patient had severe hyperglycemia, mild acute kidney injury. She has diabetes mellitus, poorly controlled. There was concern about possible COVID, but fortunately COVID-19 PCR returned negative. The patient was given insulin bolus. Anion gap was 10. The patient was started on empiric doxycycline and Rocephin. ID consultation has been requested due to gram-negative bacteremia, 2/4 bottles present on admission. The patient is feeling a little better today. Influenza screen is negative. Urine cultures are negative. T-max on presentation was 101.9. PAST MEDICAL HISTORY: Diabetes mellitus, poorly controlled, anxiety, depression, hypertension, chronic obstructive pulmonary disease, peripheral neuropathy, constipation, gastroesophageal reflux disease, osteoarthritis, chronic low back pain, history of cervical cancer, anemia. PAST SURGICAL HISTORY: , hysterectomy. FAMILY HISTORY: As per HPI. SOCIAL HISTORY: Denies smoking, EtOH, or illicit drug use. CURRENT MEDICATIONS: Ceftriaxone, doxycycline. The patient had also received azithromycin. PHYSICAL EXAMINATION: VITAL SIGNS: Reviewed, afebrile, on 2 liters O2 by nasal cannula. GENERAL: Alert, awake female in no acute distress. HEENT: Normocephalic, atraumatic. Anicteric. NECK: Supple, no JVD. LUNGS: Clear bilaterally. No wheezing. HEART: S1, S2. No gallops, murmurs, or rubs. ABDOMEN: Soft, nontender, nondistended. GENITOURINARY: No Russell in place. DERMATOLOGIC: Warm, dry, no generalized rash. NEUROLOGIC: Alert and oriented x3, grossly nonfocal. PSYCHIATRIC: Calm, but appears tired. LABORATORY DATA: WBC 10.3, hemoglobin 12.0, hematocrit 37.5, platelets 158. Sodium 137, potassium 4.0, chloride 101, bicarbonate 28, BUN 22, creatinine 1.5, glucose 557. Troponin 260. Influenza screen negative. SARS-COVID negative. UA shows greater than 40 wbc's, moderate blood, positive nitrite. MICRO: Blood culture 2/4 bottles gram-negative marcial. IMAGING: Chest x-ray as above. IMPRESSION: 1. Sepsis from gram-negative bacteremia. 2. Gram-negative bacteremia, source appears genitourinary. 3. Fever. 4. Acute kidney injury. 5. Diabetes mellitus, poorly controlled. 6. UTI 7. History of cervical cancer. 8. Peripheral neuropathy. 9. Anxiety and depression. RECOMMENDATIONS: 1. Continue Rocephin and doxycycline for now. 2. Follow up ID of gram-negative marcial in blood cultures. 3. Monitor labs and cultures. 4. Continue supportive care. Thank you, Dr. Kelly, for consulting Infectious Disease to participate in this patient's care. If you have any questions, do not hesitate to contact me. Discussed with nursing staff. SELENE/CASIE DR: Vane TID: [id number] [facility]OVE HOSPITALEmilia
[2021-07-15] MEDS: ACETAMINOPHEN 325 MG TABLET. PO PRN (14:45)
[2021-07-15 15:00] VITALS: BP 113/72
--- NOTE | 2021-07-15 15:28 | PDOC ---
[employer] PROGRESS NOTE Date of Service DOS: DATE: 07/15/21 TIME: 15:27 Chief Complaint Chief Complaint Acute encephalopathy - sepsis, HONK - IV insulin, IV fluids, sliding scale, basal insulin Sepsis - due to UTI, prior with scalp abscesses, no clear-cut abscess to be found, may also have pneumonia. empiric rocephin+ doxycycline Bacteremia, 2/, consult ID BIGG - vasomotor nephropathy Elevated troponin - likely demand ischemia. will trend Paroxysmal A-Fib - currently sinus Anxiety with depression - reconcile home meds Asthma with COPD - nebulizers when COVID 19 negative Diabetes-Type II - insulin as above High Cholesterol - statin Hypertension - cont home meds History of Present Illness History of Present Illness more alert today, but lethargic cont abx ID consutl, may change vitals signs much imrpoved from yesterday Vitals/I&O Vitals/I&O: Vital Signs Date Time Temp Pulse Resp B/P (MAP) Pulse Ox O2 Delivery O2 Flow Rate FiO2 07/15/21 11:00 97.6 93 18 108/63 (78) 99 Nasal Cannula 2.0 97.6 I & O 07/14/21 07/14/21 07/15/21 15:00 23:00 07:00 Intake Total 100 ml Output Total 600 ml 1200 ml Balance -600 ml -1100 ml Physical Exam General: Alert, Cooperative, moderate distress Lungs: Crackles Abdomen: Normal bowel sounds, Soft, No tenderness, No hepatosplenomegaly, No masses Extremities: No clubbing, No cyanosis, No edema, Normal pulses, No tenderness/swelling Skin: No rashes, No breakdown, No significant lesion Labs Labs: Laboratory Tests Test 07/14/21 16:22 07/14/21 16:23 07/14/21 17:30 07/14/21 20:30 SARS-CoV-2 RNA (DARWIN) Negative (Negative) SARS-CoV-2 Antigen (Rapid) Negative (NEGATIVE) Influenza Type A Antigen Negative (NEGATIVE) Influenza Type B Antigen Negative (NEGATIVE) White Blood Count 10.8 x10^3/uL (4.0-11.0) Red Blood Count 4.94 x10^6/uL (3.50-5.40) Hemoglobin 13.4 g/dL (12.0-15.5) Hematocrit 42.0 % (36.0-47.0) Mean Corpuscular Volume 85 fL (79-100) Mean Corpuscular Hemoglobin 27 pg (25-35) Mean Corpuscular Hemoglobin Concent 32 g/dL (31-37) Red Cell Distribution Width 14.1 % (11.5-14.5) Platelet Count 176 x10^3/uL (140-400) Neutrophils (%) (Auto) 82 % (31-73) Lymphocytes (%) (Auto) 9 % (24-48) Monocytes (%) (Auto) 8 % (0-9) Eosinophils (%) (Auto) 0 % (0-3) Basophils (%) (Auto) 1 % (0-3) Neutrophils # (Auto) 8.9 x10^3/uL (1.8-7.7) Lymphocytes # (Auto) 1.0 x10^3/uL (1.0-4.8) Monocytes # (Auto) 0.9 x10^3/uL (0.0-1.1) Eosinophils # (Auto) 0.0 x10^3/uL (0.0-0.7) Basophils # (Auto) 0.1 x10^3/uL (0.0-0.2) Sodium Level 126 mmol/L (136-145) Potassium Level 5.4 mmol/L (3.5-5.1) Chloride Level 90 mmol/L (98-107) Carbon Dioxide Level 26 mmol/L (21-32) Anion Gap 10 (6-14) Blood Urea Nitrogen 22 mg/dL (7-20) Creatinine 1.8 mg/dL (0.6-1.0) Estimated GFR (Cockcroft-Gault) 30.0 BUN/Creatinine Ratio 12 (6-20) Glucose Level 904 mg/dL (70-99) 772 mg/dL (70-99) Lactic Acid Level 1.8 mmol/L (0.4-2.0) Calcium Level 9.0 mg/dL (8.5-10.1) Total Bilirubin 0.8 mg/dL (0.2-1.0) Aspartate Amino Transf (AST/SGOT) 30 U/L (15-37) Alanine Aminotransferase (ALT/SGPT) 36 U/L (14-59) Alkaline Phosphatase 173 U/L (46-116) Troponin I High Sensitivity 420 ng/L (4-50) 397 ng/L (4-50) Total Protein 8.2 g/dL (6.4-8.2) Albumin 3.4 g/dL (3.4-5.0) Albumin/Globulin Ratio 0.7 (1.0-1.7) Procalcitonin 1.88 ng/mL (0.00-0.10) Ethyl Alcohol Level < 10 mg/dL (0-10) Acetone Level Sm pos (NEG) Test 07/14/21 20:58 07/15/21 01:09 07/15/21 01:25 07/15/21 06:25 Urine Collection Type U cath Urine Color Yellow Urine Clarity Clear Urine pH 5.0 (<5.0-8.0) Urine Specific [place] >=1.030 (1.000-1.030) Urine Protein Negative mg/dL (NEG-TRACE) Urine Glucose (UA) >=1000 mg/dL (NEG) Urine Ketones (Stick) Trace mg/dL (NEG) Urine Blood Moderate (NEG) Urine Nitrite Positive (NEG) Urine Bilirubin Negative (NEG) Urine Urobilinogen Dipstick 0.2 mg/dL (0.2 mg/dL) Urine Leukocyte Esterase Small (NEG) Urine RBC Occ /HPF (0-2) Urine WBC >40 /HPF (0-4) Urine Bacteria Moderate /HPF (0-FEW) Urine Opiates Screen Neg (NEG) Urine Methadone Screen Neg (NEG) Urine Barbiturates Neg (NEG) Urine Phencyclidine Screen Neg (NEG) Urine Amphetamine/Methamphetamine Neg (NEG) Urine Benzodiazepines Screen Neg (NEG) Urine Cocaine Screen Neg (NEG) Urine Cannabinoids Screen Neg (NEG) Urine Ethyl Alcohol Neg (NEG) Glucose (Fingerstick) 527 mg/dL (70-99) 372 mg/dL (70-99) White Blood Count 10.3 x10^3/uL (4.0-11.0) Red Blood Count 4.48 x10^6/uL (3.50-5.40) Hemoglobin 12.0 g/dL (12.0-15.5) Hematocrit 37.5 % (36.0-47.0) Mean Corpuscular Volume 84 fL (79-100) Mean Corpuscular Hemoglobin 27 pg (25-35) Mean Corpuscular Hemoglobin Concent 32 g/dL (31-37) Red Cell Distribution Width 14.5 % (11.5-14.5) Platelet Count 158 x10^3/uL (140-400) Neutrophils (%) (Auto) 80 % (31-73) Lymphocytes (%) (Auto) 12 % (24-48) Monocytes (%) (Auto) 8 % (0-9) Eosinophils (%) (Auto) 0 % (0-3) Basophils (%) (Auto) 1 % (0-3) Neutrophils # (Auto) 8.2 x10^3/uL (1.8-7.7) Lymphocytes # (Auto) 1.2 x10^3/uL (1.0-4.8) Monocytes # (Auto) 0.8 x10^3/uL (0.0-1.1) Eosinophils # (Auto) 0.0 x10^3/uL (0.0-0.7) Basophils # (Auto) 0.1 x10^3/uL (0.0-0.2) Sodium Level 137 mmol/L (136-145) Potassium Level 4.0 mmol/L (3.5-5.1) Chloride Level 101 mmol/L (98-107) Carbon Dioxide Level 28 mmol/L (21-32) Anion Gap 8 (6-14) Blood Urea Nitrogen 22 mg/dL (7-20) Creatinine 1.5 mg/dL (0.6-1.0) Estimated GFR (Cockcroft-Gault) 37.1 Glucose Level 557 mg/dL (70-99) Calcium Level 8.1 mg/dL (8.5-10.1) Troponin I High Sensitivity 260 ng/L (4-50) Test 07/15/21 08:16 07/15/21 10:35 Glucose (Fingerstick) 311 mg/dL (70-99) 334 mg/dL (70-99) Assessment and Plan Assessmemt and Plan Problems Medical Problems: (1) Acute kidney injury Status: Acute (2) Community acquired pneumonia Status: Acute (3) Generalized weakness Status: Acute (4) Hyperkalemia Status: Acute (5) Hyperosmolar hyperglycemic state (HHS) Status: Acute (6) Requires supplemental oxygen Status: Acute (7) Uncontrolled diabetes mellitus Status: Acute Comment Review of Relevant I have reviewed the following items emery (where applicable) has been applied. Medications: Current Medications Medications (Trade) Dose Ordered Sig/Mo Route PRN Reason Start Time Stop Time Status Last Admin Dose Admin Sodium Chloride 1,000 ml @ 1,000 mls/hr 1X ONCE IV 07/14/21 16:45 07/14/21 17:44 DC 07/14/21 17:43 Acetaminophen (Tylenol) 1,000 mg 1X ONCE PO 07/14/21 16:45 07/14/21 16:46 DC 07/14/21 17:43 Aspirin (Nona Aspirin) 325 mg 1X ONCE PO 07/14/21 16:45 07/14/21 16:46 DC 07/14/21 17:42 Sodium Chloride 1,000 ml @ 1,000 mls/hr 1X ONCE IV 07/14/21 18:00 07/14/21 18:59 DC 07/14/21 18:00 Sodium Chloride 500 ml @ 500 mls/hr 1X ONCE IV 07/14/21 18:00 07/14/21 18:59 DC 07/14/21 18:00 Sodium Chloride 1,000 ml @ 1,000 mls/hr 1X ONCE IV 07/14/21 18:45 07/14/21 19:44 DC 07/14/21 20:40 Ceftriaxone Sodium (Rocephin) 2 gm 1X ONCE IVP 07/14/21 18:45 07/14/21 18:47 DC 07/14/21 19:18 Azithromycin (Zithromax) 500 mg 1X ONCE PO 07/14/21 18:45 07/14/21 18:47 DC 07/14/21 19:45 Insulin Human Lispro (HumaLOG) 10 units 1X ONCE SQ 07/14/21 18:45 07/14/21 18:47 DC 07/14/21 19:28 Insulin Human Regular (HumuLIN R VIAL) 10 unit 1X ONCE IV 07/14/21 19:15 07/14/21 19:16 DC 07/14/21 19:15 Acetaminophen (Tylenol) 650 mg PRN Q6HRS PRN PO MILD PAIN / TEMP > 100.3'F 07/14/21 19:15 07/15/21 14:45 Sodium Chloride 1,000 ml @ 125 mls/hr 1X ONCE IV 07/14/21 19:45 07/15/21 03:44 DC 07/14/21 19:45 Doxycycline Hyclate 100 mg/ Dextrose 100 ml @ 50 mls/hr Q12HR IV 07/14/21 21:30 07/15/21 08:57 Ceftriaxone Sodium (Rocephin) 1 gm Q24H IVP 07/15/21 10:15 07/15/21 09:23 DC 07/15/21 08:52 Sodium Chloride 1,000 ml @ 125 mls/hr 1X ONCE IV 07/14/21 21:15 07/15/21 05:14 DC 07/14/21 22:44 Apixaban (Eliquis) 5 mg BID PO 07/14/21 21:30 07/15/21 08:51 Aspirin (Ecotrin) 81 mg DAILY PO 07/15/21 09:00 07/15/21 08:51 Benzonatate (Tessalon Perle) 100 mg [id number] PO 07/15/21 09:00 07/15/21 13:51 Insulin Glargine (Lantus Syringe) 50 unit QHS SQ 07/14/21 21:30 07/15/21 02:25 DC 07/14/21 22:38 Metoprolol Tartrate (Lopressor) 25 mg BID PO 07/14/21 21:30 07/15/21 08:52 Topiramate (Topamax) 25 mg BID PO 07/14/21 22:00 07/15/21 08:52 Trazodone HCl (Desyrel) 50 mg HS PO 07/14/21 22:00 07/14/21 22:42 Insulin Human Lispro (HumaLOG) 0-9 UNITS TIDWMEALS SQ 07/15/21 08:00 07/15/21 12:00 Tramadol HCl (Ultram) 50 mg PRN Q6HRS PRN PO PAIN 07/14/21 22:30 07/14/21 22:42 Insulin Human Lispro (HumaLOG) 25 units 1X ONCE SQ 07/14/21 22:30 07/14/21 22:39 DC 07/14/21 22:43 Insulin Human Lispro (HumaLOG) 19 units 1X ONCE SQ 07/15/21 01:30 07/15/21 01:31 DC 07/15/21 01:46 Nystatin (Nystop) 1 fernandez BID TP 07/15/21 09:00 07/15/21 08:54 Insulin Glargine (Lantus Syringe) 50 unit BID SQ 07/15/21 09:00 07/15/21 08:54 Fluticasone Propionate (Flonase) 2 spray BID NS 07/15/21 09:00 07/15/21 08:51 Ceftriaxone Sodium (Rocephin) 1 gm 1X ONCE IVP 07/15/21 09:30 07/15/21 09:31 DC 07/15/21 10:02 Insulin Human Lispro (HumaLOG) 15 units TIDWMEALS SQ 07/15/21 12:00 07/15/21 12:00 Justifications for Admission Other Justification Acute respiratory failure with hypoxia, UTI, COVID-19 SHAHEED ALVAREZ MD Jul 15, 2021 15:28
[2021-07-15 19:10] VITALS: BP 119/58
[2021-07-15] MEDS: traMADol 50 MG TABLET PO PRN (19:53)
[2021-07-15] MEDS: traZODone 50 MG TABLET. PO SCH (19:54)
[2021-07-15 23:10] VITALS: BP 132/62
[2021-07-16 02:16] VITALS: BP 117/60
[2021-07-16 07:00] VITALS: BP 150/61
[2021-07-16] MEDS: INSULIN LISPRO 300 UNITS/3 ML VIAL. SQ SCH ×6 (07:56→16:38)
[2021-07-16] MEDS: TOPIRAMATE 25 MG TABLET. PO SCH ×2 (08:23→20:20)
[2021-07-16] MEDS: BENZONATATE 100 MG CAPSULE. PO SCH ×3 (08:23→20:20)
[2021-07-16] MEDS: ASPIRIN ENTERIC COATED 81 MG TABLET.DR. PO SCH (08:23)
[2021-07-16] MEDS: APIXABAN 5 MG TABLET. PO SCH ×2 (08:24→20:20)
[2021-07-16] MEDS: METOPROLOL TART IMMED RELEASE 25 MG TABLET. PO SCH ×2 (08:24→20:20)
--- NOTE | 2021-07-16 08:31 | PDOC ---
Infectious Disease Note Vital Signs: Vital Signs Vital Signs Date Time Temp Pulse Resp B/P (MAP) Pulse Ox O2 Delivery O2 Flow Rate FiO2 07/16/21 08:24 95 150/61 07/16/21 02:16 97.7 22 93 Room Air 97.7 07/15/21 20:23 1.5 Physical Exam: PHYSICAL EXAM GENERAL: Alert, awake female in no acute distress. HEENT: Normocephalic, atraumatic. Anicteric. NECK: Supple, no JVD. LUNGS: Clear bilaterally. No wheezing. HEART: S1, S2. No gallops, murmurs, or rubs. ABDOMEN: Soft, nontender, nondistended. GENITOURINARY: No Russell in place. DERMATOLOGIC: Warm, dry, no generalized rash. NEUROLOGIC: Alert and oriented x3, grossly nonfocal. PSYCHIATRIC: Calm, but appears tired. Extremities no edema Left great toe dry superficial wound, no purulence, no drainage, nontender, Medications: Inpatient Meds: Medications reviewed. Labs: Lab Laboratory Tests Test 07/15/21 10:35 07/15/21 16:19 07/15/21 20:50 07/16/21 07:31 Glucose (Fingerstick) 334 mg/dL (70-99) 307 mg/dL (70-99) 232 mg/dL (70-99) 327 mg/dL (70-99) Objective: Assessment: IMPRESSION: 1. Sepsis from gram-negative bacteremia. 2. Gram-negative bacteremia, source appears genitourinary.E. coli and GPC in clusters 3. Fever. 4. Acute kidney injury. 5. Diabetes mellitus, poorly controlled. 6. UTI Klebsiella 7. History of cervical cancer. 8. Peripheral neuropathy. Wound over left great toe superficial not infected with dog exposure 9. Anxiety and depression. Plan: Plan of Care Change Rocephin to Zosyn for now pending E. coli cultures and Klebsiella blood culture results Start daptomycin Continue doxycycline Follow-up ID of gram-negative marcial in blood culture Continue local wound care as directed Continue supportive care Monitor labs and cultures We discussed about avoiding her little puppy biting on her toes to prevent future infections DONNIE CHAVES MD Jul 16, 2021 08:31
[2021-07-16] MEDS: ALBUTEROL SULFATE 2.5 MG/3 ML NEBU. NEB SCH ×4 (08:43→20:31)
[2021-07-16] MEDS: BUDESONIDE 0.5 MG/2 ML NEBU. NEB SCH ×2 (08:43→20:31)
[2021-07-16] MEDS: DOXYCYCLINE HYCLATE 100 MG in IV DEXTROSE 5% 100ML 100 ML IV SCH ×2 (09:00→20:19)
[2021-07-16] MEDS: FLUTICASONE 50MCG/NASAL SPRAY 16GM BOTTLE. NS SCH ×2 (09:00→20:19)
[2021-07-16] MEDS: INSULIN GLARGINE SYRINGE. SQ SCH ×2 (09:00→20:21)
[2021-07-16] MEDS: NYSTATIN TOPICAL POWDER 15GM BOTTLE. TP SCH ×2 (09:00→20:38)
[2021-07-16] MEDS ORDERED: cefTRIAXone IV Push 2 GM VIAL. IVP SCH (09:00)
[2021-07-16 10:57] VITALS: BP 162/72
--- NOTE | 2021-07-16 11:50 | PDOC ---
[employer] PROGRESS NOTE Date of Service DOS: DATE: 07/16/21 TIME: 11:48 Chief Complaint Chief Complaint Acute encephalopathy - sepsis, HONK - IV insulin, IV fluids, sliding scale, basal insulin Sepsis - due to UTI, and bacteremia Bacteremia, 2/4, BIGG - vasomotor nephropathy Elevated troponin - likely demand ischemia. will trend Paroxysmal A-Fib - currently sinus Anxiety with depression - better, Asthma with COPD - nebulizers when COVID 19 negative Diabetes-Type II - insulin as above High Cholesterol - statin Hypertension - cont home meds History of Present Illness History of Present Illness ID changed to Doxy, zosyn, Dapto, + E. coli and klebsiella more alert today, but lethargic cont abx ID consutl, may change vitals signs much imrpoved from yesterday Vitals/I&O Vitals/I&O: Vital Signs Date Time Temp Pulse Resp B/P (MAP) Pulse Ox O2 Delivery O2 Flow Rate FiO2 07/16/21 11:31 98 Nasal Cannula 1.5 07/16/21 10:57 98.7 87 16 162/72 (102) 98.7 I & O 07/15/21 07/15/21 07/16/21 15:00 23:00 07:00 Intake Total 120 ml 100 ml Balance 120 ml 100 ml Physical Exam Physical Exam: GENERAL: Alert, awake female in no acute distress. Extremities no edema Left great toe dry superficial wound, no purulence, no drainage, nontender, General: Alert, Oriented X3, Cooperative, moderate distress Lungs: Crackles Abdomen: Normal bowel sounds, Soft, No tenderness, No hepatosplenomegaly, No masses Extremities: No clubbing, No cyanosis, No edema, Normal pulses, No tenderness/swelling Skin: No rashes, No breakdown, No significant lesion Labs Labs: Laboratory Tests Test 07/15/21 16:19 07/15/21 20:50 07/16/21 07:31 07/16/21 11:37 Glucose (Fingerstick) 307 mg/dL (70-99) 232 mg/dL (70-99) 327 mg/dL (70-99) 297 mg/dL (70-99) Assessment and Plan Assessmemt and Plan Problems Medical Problems: (1) Acute kidney injury Status: Acute (2) Community acquired pneumonia Status: Acute (3) Generalized weakness Status: Acute (4) Hyperkalemia Status: Acute (5) Hyperosmolar hyperglycemic state (HHS) Status: Acute (6) Requires supplemental oxygen Status: Acute (7) Uncontrolled diabetes mellitus Status: Acute Comment Review of Relevant I have reviewed the following items emery (where applicable) has been applied. Medications: Current Medications Medications (Trade) Dose Ordered Sig/Mo Route PRN Reason Start Time Stop Time Status Last Admin Dose Admin Ceftriaxone Sodium (Rocephin) 2 gm Q24H IVP 07/16/21 09:00 07/16/21 11:43 DC 07/16/21 09:00 Insulin Human Lispro (HumaLOG) 15 units TIDWMEALS SQ 07/15/21 12:00 07/16/21 07:56 Justifications for Admission Other Justification Acute respiratory failure with hypoxia, UTI, COVID-19 SHAHEED ALVAREZ MD Jul 16, 2021 11:49
[2021-07-16] MEDS: PIPERACILLIN/TAZOBACTAM 3.375 GM in IV NORMAL SALINE 50ML 50 ML IV SCH ×2 (12:00→16:40)
[2021-07-16] MEDS ORDERED: clonazePAM 0.5 MG TABLET PO PRN (12:00)
[2021-07-16] MEDS ORDERED: tiZANidine 4 MG TABLET. PO PRN (12:15)
[2021-07-16] MEDS: POLYETHYLENE GLYCOL 3350 17 GM PACKET. PO SCH (12:24)
[2021-07-16] MEDS: GABAPENTIN 400 MG CAPSULE. PO SCH ×3 (12:25→20:20)
[2021-07-16] MEDS: DULoxetine HCL 30 MG CAPSULE.DR PO SCH (12:25)
[2021-07-16] MEDS: DAPTOmycin (GENERIC) IVPB 420 MG in IV NORMAL SALINE 50ML 50 ML IV SCH (12:47)
[2021-07-16 14:41] VITALS: BP 150/73
[2021-07-16 19:50] VITALS: BP 119/62
[2021-07-16] MEDS: QUEtiapine 100 MG TABLET. PO SCH (20:20)
[2021-07-16] MEDS: traZODone 50 MG TABLET. PO SCH (20:20)
[2021-07-16 23:09] VITALS: BP 124/65
[2021-07-17] MEDS: PIPERACILLIN/TAZOBACTAM 3.375 GM in IV NORMAL SALINE 50ML 50 ML IV SCH ×4 (00:17→16:58)
[2021-07-17 03:50] VITALS: BP 105/66
[2021-07-17 04:04] LABS: BASO % 1 % (0-3); EOS # 0.2 x10^3/uL (0.0-0.7); EOS % 3 % (0-3); HEMATOCRIT 33.5 % (36.0-47.0); HEMOGLOBIN 11.1 g/dL (12.0-15.5); LYMPH # 2.3 x10^3/uL (1.0-4.8); LYMPH % 31 % (24-48); MEAN CORPUSCULAR HEMOGLOBIN 27 pg (25-35); MEAN CORPUSCULAR HGB CONC 33 g/dL (31-37); MEAN CORPUSCULAR VOLUME 82 fL (79-100); MONO # 0.7 x10^3/uL (0.0-1.1); MONO % 9 % (0-9); NEUT % 56 % (31-73); PLATELET COUNT 204 x10^3/uL (140-400); RED BLOOD COUNT 4.07 x10^6/uL (3.50-5.40); RED CELL DISTRIBUTION WIDTH 14.1 % (11.5-14.5); WHITE BLOOD COUNT 7.2 x10^3/uL (4.0-11.0)
[2021-07-17 04:23] LABS: ALBUMIN 2.2 g/dL (3.4-5.0); ALBUMIN/GLOBULIN RATIO 0.6 (1.0-1.7); CALCIUM 8.4 mg/dL (8.5-10.1); GFR 59.2; POTASSIUM 3.2 mmol/L (3.5-5.1); TOTAL BILIRUBIN 0.3 mg/dL (0.2-1.0); TOTAL PROTEIN 6.2 g/dL (6.4-8.2)
[2021-07-17] MEDS: BUDESONIDE 0.5 MG/2 ML NEBU. NEB SCH ×2 (06:51→19:39)
[2021-07-17] MEDS: ALBUTEROL SULFATE 2.5 MG/3 ML NEBU. NEB SCH ×4 (06:51→19:39)
[2021-07-17 07:00] VITALS: BP 141/56
[2021-07-17] MEDS: INSULIN LISPRO 300 UNITS/3 ML VIAL. SQ SCH ×6 (08:00→16:58)
[2021-07-17] MEDS: FLUTICASONE 50MCG/NASAL SPRAY 16GM BOTTLE. NS SCH ×2 (08:07→21:00)
[2021-07-17] MEDS: ASPIRIN ENTERIC COATED 81 MG TABLET.DR. PO SCH (08:40)
[2021-07-17] MEDS: DOXYCYCLINE HYCLATE 100 MG in IV DEXTROSE 5% 100ML 100 ML IV SCH (08:40)
[2021-07-17] MEDS: BENZONATATE 100 MG CAPSULE. PO SCH ×3 (08:40→21:27)
[2021-07-17] MEDS: METOPROLOL TART IMMED RELEASE 25 MG TABLET. PO SCH ×2 (08:41→21:28)
[2021-07-17] MEDS: APIXABAN 5 MG TABLET. PO SCH ×2 (08:41→21:27)
[2021-07-17] MEDS: DULoxetine HCL 30 MG CAPSULE.DR PO SCH (08:41)
[2021-07-17] MEDS: TOPIRAMATE 25 MG TABLET. PO SCH ×2 (08:41→21:29)
[2021-07-17] MEDS: GABAPENTIN 400 MG CAPSULE. PO SCH ×4 (08:41→21:27)
[2021-07-17] MEDS: POLYETHYLENE GLYCOL 3350 17 GM PACKET. PO SCH (08:41)
[2021-07-17] MEDS: NYSTATIN TOPICAL POWDER 15GM BOTTLE. TP SCH ×2 (08:43→21:00)
[2021-07-17] MEDS: INSULIN GLARGINE SYRINGE. SQ SCH ×2 (08:44→21:30)
--- NOTE | 2021-07-17 09:46 | PDOC ---
Infectious Disease Note Subjective: Subjective Patient feels much better today Less tired Denies fever, nausea, vomiting, shortness of breath, diarrhea, abdominal pain, rash Otherwise as above Vital Signs: Vital Signs Vital Signs Date Time Temp Pulse Resp B/P (MAP) Pulse Ox O2 Delivery O2 Flow Rate FiO2 07/17/21 08:41 82 105/66 07/17/21 07:00 98.7 18 96 Room Air 98.7 07/16/21 11:31 1.5 Physical Exam: PHYSICAL EXAM GENERAL: Alert, awake female in no acute distress. Extremities no edema Left great toe dry superficial wound, no purulence, no drainage, nontender, Medications: Inpatient Meds: Medications reviewed. Labs: Lab Laboratory Tests Test 07/16/21 11:37 07/16/21 16:12 07/16/21 20:37 07/17/21 03:40 Glucose (Fingerstick) 297 mg/dL (70-99) 226 mg/dL (70-99) 73 mg/dL (70-99) White Blood Count 7.2 x10^3/uL (4.0-11.0) Red Blood Count 4.07 x10^6/uL (3.50-5.40) Hemoglobin 11.1 g/dL (12.0-15.5) Hematocrit 33.5 % (36.0-47.0) Mean Corpuscular Volume 82 fL (79-100) Mean Corpuscular Hemoglobin 27 pg (25-35) Mean Corpuscular Hemoglobin Concent 33 g/dL (31-37) Red Cell Distribution Width 14.1 % (11.5-14.5) Platelet Count 204 x10^3/uL (140-400) Neutrophils (%) (Auto) 56 % (31-73) Lymphocytes (%) (Auto) 31 % (24-48) Monocytes (%) (Auto) 9 % (0-9) Eosinophils (%) (Auto) 3 % (0-3) Basophils (%) (Auto) 1 % (0-3) Neutrophils # (Auto) 4.0 x10^3/uL (1.8-7.7) Lymphocytes # (Auto) 2.3 x10^3/uL (1.0-4.8) Monocytes # (Auto) 0.7 x10^3/uL (0.0-1.1) Eosinophils # (Auto) 0.2 x10^3/uL (0.0-0.7) Basophils # (Auto) 0.0 x10^3/uL (0.0-0.2) Sodium Level 144 mmol/L (136-145) Potassium Level 3.2 mmol/L (3.5-5.1) Chloride Level 108 mmol/L (98-107) Carbon Dioxide Level 30 mmol/L (21-32) Anion Gap 6 (6-14) Blood Urea Nitrogen 15 mg/dL (7-20) Creatinine 1.0 mg/dL (0.6-1.0) Estimated GFR (Cockcroft-Gault) 59.2 BUN/Creatinine Ratio 15 (6-20) Glucose Level 120 mg/dL (70-99) Calcium Level 8.4 mg/dL (8.5-10.1) Total Bilirubin 0.3 mg/dL (0.2-1.0) Aspartate Amino Transf (AST/SGOT) 38 U/L (15-37) Alanine Aminotransferase (ALT/SGPT) 38 U/L (14-59) Alkaline Phosphatase 147 U/L (46-116) Total Protein 6.2 g/dL (6.4-8.2) Albumin 2.2 g/dL (3.4-5.0) Albumin/Globulin Ratio 0.6 (1.0-1.7) Test 07/17/21 07:39 Glucose (Fingerstick) 190 mg/dL (70-99) Objective: Assessment: IMPRESSION: 1. Sepsis from gram-negative bacteremia. 2. Gram-negative bacteremia, source appears genitourinary.E. coli and GPC in clusters 3. Fever. 4. Acute kidney injury. 5. Diabetes mellitus, poorly controlled. 6. UTI Klebsiella 7. History of cervical cancer. 8. Peripheral neuropathy. Wound over left great toe superficial not infected with dog exposure 9. Anxiety and depression. Plan: Plan of Care Continue Zosyn Cont daptomycin for GPC in blood culture DC doxycycline X-ray left foot Continue local wound care as directed Continue supportive care Monitor labs and cultures We discussed about avoiding her little puppy biting on her toes to prevent future infections DONNIE CHAVES MD Jul 17, 2021 09:45
[2021-07-17] MEDS ORDERED: POTASSIUM CHLORIDE 20 MEQ TABLET.ER. PO ONE (10:15)
[2021-07-17] MEDS: ONDANSETRON PF 4 MG/2 ML VIAL. IVP PRN ×2 (10:25→16:18)
[2021-07-17 10:28] VITALS: BP 133/56
[2021-07-17] MEDS ORDERED: MAGNESIUM SULFATE 2GM 50 ML IV ONE (10:30)
[2021-07-17] MEDS: DAPTOmycin (GENERIC) IVPB 420 MG in IV NORMAL SALINE 50ML 50 ML IV SCH (12:07)
--- NOTE | 2021-07-17 12:26 | RAD ---
Two-view left foot dated 07/17/2021. No comparison available. CLINICAL INDICATION: Lesion left great toe. FINDINGS: 2 views obtained. There is mild hallux valgus with mild soft tissue swelling. Osseous structures othe rwise intact. No periostitis or bone destruction. Mild degenerative change of the interphalangeal little nts throughout. Small calcaneal spur. IMPRESSION: 1. No acute radiographic abnormality. 2. Mild hallux valgus Electronically signed by: Cosmo Carlisle MD (07/17/2021 12:23 PM) [id number]
--- NOTE | 2021-07-17 13:04 | PDOC ---
[employer] PROGRESS NOTE Date of Service DOS: DATE: 07/17/21 TIME: 13:04 Chief Complaint Chief Complaint Acute encephalopathy - sepsis, hyperosmolar syndrom on admit, blood sugar was over 900 - - hypokalemia today, Sepsis - due to UTI, and bacteremia Bacteremia, klebsiella BIGG - vasomotor nephropathy demand ischemia. troponi up on admit, Paroxysmal A-Fib - Anxiety with depression - doing better, Asthma with COPD - nebulizers when COVID 19 negative - breathing wel Diabetes-Type II - insulin as above High Cholesterol - statin Hypertension History of Present Illness History of Present Illness cont the broad abx feels better, nauseated today ID follownig , + E. coli UTI and klebsiella bacteremia more alert today, but lethargic cont abx ID consutl, may change vitals signs much imrpoved from yesterday Vitals/I&O Vitals/I&O: Vital Signs Date Time Temp Pulse Resp B/P (MAP) Pulse Ox O2 Delivery O2 Flow Rate FiO2 07/17/21 10:51 95 Room Air 07/17/21 10:28 98.9 94 18 133/56 (81) 98.9 07/17/21 08:00 1.5 I & O 07/16/21 07/16/21 07/17/21 15:00 23:00 07:00 Intake Total 350 ml 1460 ml 120 ml Output Total 1200 ml Balance -850 ml 1460 ml 120 ml Physical Exam Physical Exam: GENERAL: Alert, awake female in no acute distress. Extremities no edema Left great toe dry superficial wound, no purulence, no drainage, nontender, General: Alert, Oriented X3, Cooperative, moderate distress Lungs: Crackles Abdomen: Normal bowel sounds, Soft, No tenderness, No hepatosplenomegaly, No masses Extremities: No clubbing, No cyanosis, No edema, Normal pulses, No tenderness/swelling Skin: No rashes, No breakdown, No significant lesion Labs Labs: Laboratory Tests Test 07/16/21 16:12 07/16/21 20:37 07/17/21 03:40 07/17/21 07:39 Glucose (Fingerstick) 226 mg/dL (70-99) 73 mg/dL (70-99) 190 mg/dL (70-99) White Blood Count 7.2 x10^3/uL (4.0-11.0) Red Blood Count 4.07 x10^6/uL (3.50-5.40) Hemoglobin 11.1 g/dL (12.0-15.5) Hematocrit 33.5 % (36.0-47.0) Mean Corpuscular Volume 82 fL (79-100) Mean Corpuscular Hemoglobin 27 pg (25-35) Mean Corpuscular Hemoglobin Concent 33 g/dL (31-37) Red Cell Distribution Width 14.1 % (11.5-14.5) Platelet Count 204 x10^3/uL (140-400) Neutrophils (%) (Auto) 56 % (31-73) Lymphocytes (%) (Auto) 31 % (24-48) Monocytes (%) (Auto) 9 % (0-9) Eosinophils (%) (Auto) 3 % (0-3) Basophils (%) (Auto) 1 % (0-3) Neutrophils # (Auto) 4.0 x10^3/uL (1.8-7.7) Lymphocytes # (Auto) 2.3 x10^3/uL (1.0-4.8) Monocytes # (Auto) 0.7 x10^3/uL (0.0-1.1) Eosinophils # (Auto) 0.2 x10^3/uL (0.0-0.7) Basophils # (Auto) 0.0 x10^3/uL (0.0-0.2) Sodium Level 144 mmol/L (136-145) Potassium Level 3.2 mmol/L (3.5-5.1) Chloride Level 108 mmol/L (98-107) Carbon Dioxide Level 30 mmol/L (21-32) Anion Gap 6 (6-14) Blood Urea Nitrogen 15 mg/dL (7-20) Creatinine 1.0 mg/dL (0.6-1.0) Estimated GFR (Cockcroft-Gault) 59.2 BUN/Creatinine Ratio 15 (6-20) Glucose Level 120 mg/dL (70-99) Calcium Level 8.4 mg/dL (8.5-10.1) Total Bilirubin 0.3 mg/dL (0.2-1.0) Aspartate Amino Transf (AST/SGOT) 38 U/L (15-37) Alanine Aminotransferase (ALT/SGPT) 38 U/L (14-59) Alkaline Phosphatase 147 U/L (46-116) Total Protein 6.2 g/dL (6.4-8.2) Albumin 2.2 g/dL (3.4-5.0) Albumin/Globulin Ratio 0.6 (1.0-1.7) Test 07/17/21 12:18 Glucose (Fingerstick) 258 mg/dL (70-99) Review of Systems Review of Systems: nausea, weakness Assessment and Plan Assessmemt and Plan Problems Medical Problems: (1) Acute kidney injury Status: Acute (2) Community acquired pneumonia Status: Acute (3) Generalized weakness Status: Acute (4) Hyperkalemia Status: Acute (5) Hyperosmolar hyperglycemic state (HHS) Status: Acute (6) Requires supplemental oxygen Status: Acute (7) Uncontrolled diabetes mellitus Status: Acute Comment Review of Relevant I have reviewed the following items emery (where applicable) has been applied. Medications: Current Medications Medications (Trade) Dose Ordered Sig/Mo Route PRN Reason Start Time Stop Time Status Last Admin Dose Admin Quetiapine Fumarate (SEROquel) 100 mg HS PO 07/16/21 21:00 07/16/21 20:20 Potassium Chloride (Klor-Con) 40 meq 1X ONCE PO 07/17/21 10:15 07/17/21 10:24 DC 07/17/21 12:09 Magnesium Sulfate 50 ml @ 25 mls/hr 1X ONCE IV 07/17/21 10:30 07/17/21 12:29 DC 07/17/21 10:40 Ondansetron HCl (Zofran) 4 mg PRN Q8HRS PRN IVP NAUSEA/VOMITING 07/17/21 10:30 07/17/21 10:25 Justifications for Admission Other Justification Acute respiratory failure with hypoxia, UTI, COVID-19 SHAHEED ALVAREZ MD Jul 17, 2021 13:04
[2021-07-17 14:57] VITALS: BP 111/57
[2021-07-17] MEDS: ACETAMINOPHEN 325 MG TABLET. PO PRN (16:18)
[2021-07-17 19:00] VITALS: BP 127/59
[2021-07-17] MEDS: traZODone 50 MG TABLET. PO SCH (21:27)
[2021-07-17] MEDS: QUEtiapine 100 MG TABLET. PO SCH (21:27)
[2021-07-17 23:00] VITALS: BP 136/64
[2021-07-18] MEDS: PIPERACILLIN/TAZOBACTAM 3.375 GM in IV NORMAL SALINE 50ML 50 ML IV SCH ×2 (00:35→05:44)
[2021-07-18 03:00] VITALS: BP 105/54
[2021-07-18 04:04] LABS: BASO % 1 % (0-3); EOS # 0.3 x10^3/uL (0.0-0.7); EOS % 4 % (0-3); HEMATOCRIT 33.8 % (36.0-47.0); HEMOGLOBIN 10.7 g/dL (12.0-15.5); LYMPH # 2.4 x10^3/uL (1.0-4.8); LYMPH % 32 % (24-48); MEAN CORPUSCULAR HEMOGLOBIN 26 pg (25-35); MEAN CORPUSCULAR HGB CONC 32 g/dL (31-37); MEAN CORPUSCULAR VOLUME 83 fL (79-100); MONO # 0.7 x10^3/uL (0.0-1.1); MONO % 9 % (0-9); NEUT # 4.1 x10^3/uL (1.8-7.7); NEUT % 55 % (31-73); PLATELET COUNT 233 x10^3/uL (140-400); RED BLOOD COUNT 4.08 x10^6/uL (3.50-5.40); RED CELL DISTRIBUTION WIDTH 14.4 % (11.5-14.5); WHITE BLOOD COUNT 7.6 x10^3/uL (4.0-11.0)
[2021-07-18 04:09] LABS: HEMOGLOBIN A1C >15.5 % (4.8-5.6)
[2021-07-18 04:20] LABS: CALCIUM 8.3 mg/dL (8.5-10.1); CREATININE 0.9 mg/dL (0.6-1.0); GFR 66.8; POTASSIUM 3.5 mmol/L (3.5-5.1)
[2021-07-18 07:00] VITALS: BP 122/60
[2021-07-18] MEDS: BUDESONIDE 0.5 MG/2 ML NEBU. NEB SCH ×2 (07:37→20:50)
[2021-07-18] MEDS: ALBUTEROL SULFATE 2.5 MG/3 ML NEBU. NEB SCH ×4 (07:38→20:55)
[2021-07-18] MEDS: INSULIN LISPRO 300 UNITS/3 ML VIAL. SQ SCH ×6 (08:00→17:22)
[2021-07-18] MEDS: POTASSIUM CHLORIDE 20 MEQ TABLET.ER. PO SCH (08:26)
[2021-07-18] MEDS: TOPIRAMATE 25 MG TABLET. PO SCH ×2 (08:27→21:35)
[2021-07-18] MEDS: BENZONATATE 100 MG CAPSULE. PO SCH ×3 (08:27→21:35)
[2021-07-18] MEDS: APIXABAN 5 MG TABLET. PO SCH ×2 (08:30→21:36)
[2021-07-18] MEDS: GABAPENTIN 400 MG CAPSULE. PO SCH ×4 (08:30→21:34)
[2021-07-18] MEDS: METOPROLOL TART IMMED RELEASE 25 MG TABLET. PO SCH ×2 (08:30→21:35)
[2021-07-18] MEDS: FLUTICASONE 50MCG/NASAL SPRAY 16GM BOTTLE. NS SCH ×2 (08:32→21:37)
[2021-07-18] MEDS: NYSTATIN TOPICAL POWDER 15GM BOTTLE. TP SCH ×2 (08:32→21:37)
--- NOTE | 2021-07-18 08:36 | PDOC ---
Infectious Disease Note Subjective: Subjective Patient feels much better today Less tired Denies fever, nausea, vomiting, shortness of breath, diarrhea, abdominal pain, rash Otherwise as above Vital Signs: Vital Signs Vital Signs Date Time Temp Pulse Resp B/P (MAP) Pulse Ox O2 Delivery O2 Flow Rate FiO2 07/18/21 07:40 94 Room Air 07/18/21 03:00 97.8 72 16 105/54 (71) 97.8 07/17/21 08:00 1.5 Physical Exam: PHYSICAL EXAM GENERAL: Alert, awake female in no acute distress. Extremities no edema Left great toe dry superficial wound, no purulence, no drainage, nontender, Medications: Inpatient Meds: Medications reviewed. Labs: Lab Laboratory Tests Test 07/17/21 12:18 07/17/21 16:50 07/17/21 20:02 07/18/21 03:30 Glucose (Fingerstick) 258 mg/dL (70-99) 166 mg/dL (70-99) 119 mg/dL (70-99) White Blood Count 7.6 x10^3/uL (4.0-11.0) Red Blood Count 4.08 x10^6/uL (3.50-5.40) Hemoglobin 10.7 g/dL (12.0-15.5) Hematocrit 33.8 % (36.0-47.0) Mean Corpuscular Volume 83 fL (79-100) Mean Corpuscular Hemoglobin 26 pg (25-35) Mean Corpuscular Hemoglobin Concent 32 g/dL (31-37) Red Cell Distribution Width 14.4 % (11.5-14.5) Platelet Count 233 x10^3/uL (140-400) Neutrophils (%) (Auto) 55 % (31-73) Lymphocytes (%) (Auto) 32 % (24-48) Monocytes (%) (Auto) 9 % (0-9) Eosinophils (%) (Auto) 4 % (0-3) Basophils (%) (Auto) 1 % (0-3) Neutrophils # (Auto) 4.1 x10^3/uL (1.8-7.7) Lymphocytes # (Auto) 2.4 x10^3/uL (1.0-4.8) Monocytes # (Auto) 0.7 x10^3/uL (0.0-1.1) Eosinophils # (Auto) 0.3 x10^3/uL (0.0-0.7) Basophils # (Auto) 0.0 x10^3/uL (0.0-0.2) Sodium Level 146 mmol/L (136-145) Potassium Level 3.5 mmol/L (3.5-5.1) Chloride Level 111 mmol/L (98-107) Carbon Dioxide Level 30 mmol/L (21-32) Anion Gap 5 (6-14) Blood Urea Nitrogen 16 mg/dL (7-20) Creatinine 0.9 mg/dL (0.6-1.0) Estimated GFR (Cockcroft-Gault) 66.8 Glucose Level 81 mg/dL (70-99) Calcium Level 8.3 mg/dL (8.5-10.1) Micro RUN DATE: 07/16/21 [facility] [employer] LAB *LIVE* PAGE 1 RUN TIME: 904 Specimen Inquiry PATIENT: ARLEN CHÁVEZ ACCT: [id number] LOC: [address] [facility] U: [id number] AGE/SX: 46/F ROOM: 648 RE07/14/[address]: DUNG CLEMONS MD : 1975 BED: 1 DIS: STATUS: ADM IN TLOC: SPEC #: [id number] SYLVIA: 07/14/21 STATUS: BENNIE SCHNEIDER #: [id number] RECD: 07/14/[address] [facility] [address]: FARRAH VIRAMONTES DO SOURCE: BLOOD ENTR: 07/14/21 [facility] DR: JANEEN SEALS APRN [facility]: ORDERED: BCULT Procedure Result BLOOD CULTURE Final GRAM NEGATIVE RODS IN 2 OF 4 BOTTLES (2 SETS COLLECTED). CALLED TO JANEEN LOWERY, 6S, 07/15/21 AT 0815 BY Kelsey VARGAS. CULTURES HAVE BEEN SENT TO [facility] FOR FURTHER IDENTIFICATION. AMMMENDED REPORT: RAPID ID ON THIS ORGANISM IS KLEBSIELLA PNEUMONIAE. CALLED TO RN ON AT 14:10 ON 07/15/21 [facility] AMMENDED REPORT:07/16/21 THE AEROBIC BOTTLE OF THIS SET (SECOND BOTTLE) IS NOW GROWING GRAM POSITIVE COCCI IN CLUSTERS. 1 OF 4 BOTTLES, TWO SETS DRAWN. BOTH ANAEROBIC BOTTLES ARE GROWING GRAM NEGATIVE RODS. CALLED TO JANEEN LAZO RN ON AT 9:00 ON 07/16/21 [facility] SENT TO [facility] FOR FURTHER WORKUP. SENT TO [facility] FOR FURTHER WORKUP * This is a corrected result. * A prior result that was reported as final has been changed. * This is a corrected result. * A prior result that was reported as final has been changed. * This is a corrected result. * A prior result that was reported as final has been changed. RUN DATE: 07/16/21 [facility] LAB *LIVE* PAGE 1 RUN TIME: 0905 Specimen Inquiry SPEC: [id number] PATIENT: ARLEN CHÁVEZ [id number] (Continued) CONTINUED ON NEXT PAGE ----- ------- RUN DATE: 07/17/21 [facility] LAB *LIVE* PAGE 1 RUN TIME: 725 Specimen Inquiry PATIENT: ARLEN CHÁVEZ Al ACCT: [id number] LOC: [address] [place] [address] U: [id number] AGE/SX: 46/F ROOM: 648 RE07/14/[address]: DUNG CLEMONS MD : 1975 BED: 1 DIS: STATUS: ADM IN TLOC: SPEC #: [id number] SYLVIA: 07/14/21 STATUS: BENNIE REQ #: [id number] RECD: 07/14/[address] [facility] [address]: FARRAH VIRAMONTES DO SOURCE: BLOOD ENTR: 07/15/21 [facility] [address]: JANEEN SEALS [facility] ORDERED: BLD CULT - LC Procedure Result BLOOD CULTURE LC Final Final GRAM NEGATIVE RODS SEPSITYPER ID= KLEBSIELLA PNEUMONIAE IDENTIFICATION OBTAINED UTILIZING [facility] SEPSITYPER CONFIRMATION TO FOLLOW. FINAL ID= [KLEBSIELLA PNEUMONIAE] KLEBSIELLA PNEUMONIAE ANTIMICROBIAL SUSCEPTIBILITY Final Comment NEG ERWIN 56 KLEBSIELLA PNEUMONIAE ANTIBIOTIC RESULT INTERPRETATION AMPICILLIN/SULBACTAM <=4/2 S AMIKACIN <=16 S AMPICILLIN >16 R AMOXICILLIN/K CLAVULANATE <=8/4 S AZTREONAM <=4 S CEFTRIAXONE <=1 S CEFTAZIDIME <=1 S CEFOTAXIME <=2 S CEFOXITIN <=8 S CEFAZOLIN <=2 S CIPROFLOXACIN <=0.25 S CEFEPIME <=2 S CEFUROXIME <=4 S CEFTAZIDIME/AVIBACTAM <=4 S ERTAPENEM <=0.5 S GENTAMICIN <=2 S LEVOFLOXACIN <=0.5 S MEROPENEM <=1 S PIPERACILLIN/TAZOBACTAM <=8 S TRIMETHOPRIM/SULFAMETHOXAZOLE <=0.5/9.5 S TETRACYCLINE <=4 S TOBRAMYCIN <=2 S Unless otherwise specified, Testing Performed by: [address] [address] For Inquires, the Physician may contact the Microbiology RUN DATE: 07/17/21 [facility] LAB *LIVE* PAGE 2 RUN TIME: 725 Specimen Inquiry SPEC: [id number] PATIENT: MARA CHÁVEZGISELL Melendez [id number] (Continued) --------- --- Procedure Result CONTINUED ON NEXT PAGE RUN DATE: 07/17/21 [facility] LAB *LIVE* PAGE 3 RUN TIME: 0726 Specimen Inquiry SPEC: [id number] PATIENT: SAIRAARLEN K [id number] (Continued) Procedure Result ANTIMICROBIAL SUSCEPTIBILITY Final (continued) department at [phone] RUN DATE: 07/18/21 [facility] LAB *LIVE* PAGE 1 RUN TIME: 0751 Specimen Inquiry PATIENT: ARLEN CHÁVEZ ACCT: [id number] LOC: [address] [place] [address] U: [id number] AGE/SX: 46/F ROOM: 648 RE07/14/[address]: DUNG CLEMONS MD : 1975 BED: 1 DIS: STATUS: ADM IN TLOC: SPEC #: [id number] SYLVIA: 07/14/21 STATUS: COMP REQ #: [id number] RECD: 07/14/[address]: FARRAH VIRAMONTES DO SOURCE: STRA CATH ENTR: 07/14/[address]: DUNG CLEMONS MD SPDC: STR JANEEN CASTILLO APRN ORDERED: URINE CULTURE Procedure Result URINE CULTURE Final Final 70,000 CFU/ML GRAM NEGATIVE RODS on 07/16/21 at 0815 FINAL ID= [ESCHERICHIA COLI] 50,000 CFU/ML GRAM NEGATIVE RODS on 07/17/21 at 1106 FINAL ID= [KLEBSIELLA PNEUMONIAE] Testing Performed by: [address] [address] For Inquires, the Physician may contact the Microbiology department at [phone] ESCHERICHIA COLI KLEBSIELLA PNEUMONIAE ANTIMICROBIAL SUSCEPTIBILITY Final Comment Comment NEG ERWIN 56 ESCHERICHIA COLI ANTIBIOTIC RESULT INTERPRETATION AMPICILLIN/SULBACTAM <=4/2 S AMIKACIN <=16 S AMPICILLIN <=8 S AMOXICILLIN/K CLAVULANATE <=8/4 S AZTREONAM 8 S CEFTRIAXONE <=1 S CEFTAZIDIME <=1 S CEFOTAXIME <=2 S CEFOXITIN <=8 S CEFAZOLIN <=2 S CIPROFLOXACIN <=0.25 S CEFEPIME <=2 S CEFUROXIME <=4 S CEFTAZIDIME/AVIBACTAM <=4 S ERTAPENEM <=0.5 S NITROFURANTOIN <=32 S GENTAMICIN <=2 S LEVOFLOXACIN <=0.5 S MEROPENEM <=1 S PIPERACILLIN/TAZOBACTAM <=8 S RUN DATE: 07/18/21 [facility] LAB *LIVE* PAGE 2 RUN TIME: 0751 Specimen Inquiry SPEC: [id number] PATIENT: ARLEN CHÁVEZ [id number] (Continued) Procedure Result CONTINUED ON NEXT PAGE RUN DATE: 07/18/21 [facility] LAB *LIVE* PAGE 3 RUN TIME: 0751 Specimen Inquiry SPEC: [id number] PATIENT: ARLEN CHÁVEZ [id number] (Continued) Procedure Result ANTIMICROBIAL SUSCEPTIBILITY Final (continued) TRIMETHOPRIM/SULFAMETHOXAZOLE <=0.5/9.5 S TETRACYCLINE <=4 S TOBRAMYCIN <=2 S NEG ERWIN 56 KLEBSIELLA PNEUMONIAE ANTIBIOTIC RESULT INTERPRETATION AMPICILLIN/SULBACTAM 8/4 S AMIKACIN <=16 S AMPICILLIN >16 R AMOXICILLIN/K CLAVULANATE <=8/4 S AZTREONAM <=4 S CEFTRIAXONE <=1 S CEFTAZIDIME <=1 S CEFOTAXIME <=2 S CEFOXITIN 16 I CEFAZOLIN <=2 S CIPROFLOXACIN <=0.25 S CEFEPIME <=2 S CEFUROXIME <=4 S CEFTAZIDIME/AVIBACTAM <=4 S ERTAPENEM <=0.5 S NITROFURANTOIN <=32 S GENTAMICIN <=2 S LEVOFLOXACIN <=0.5 S MEROPENEM <=1 S PIPERACILLIN/TAZOBACTAM <=8 S TRIMETHOPRIM/SULFAMETHOXAZOLE <=0.5/9.5 S TETRACYCLINE <=4 S TOBRAMYCIN <=2 S Unless otherwise specified, Testing Performed by: [address] [address] For Inquires, the Physician may contact the Microbiology department at [phone] END OF REPORT Objective: Assessment: 1. Sepsis from gram-negative bacteremia. 2. Gram-negative bacteremia, source appears genitourinary.Kleb and GPC in clusters,latter ID pending " corrected " report reviewed from microbiology lab 3. Fever. 4. Acute kidney injury. 5. Diabetes mellitus, poorly controlled. 6. UTI Klebsiella and e coli 7. History of cervical cancer. 8. Peripheral neuropathy. Wound over left great toe superficial not infected with dog exposure, may have had superimposed cellulitis. X-ray negative for acute changes. 9. Anxiety and depression. Dog exposure Plan: Plan of Care Change Zosyn to Unasyn for now Cont daptomycin for GPC in blood culture,ID still pending, questionable error not clear X-ray left foot reviewed Continue local wound care as directed Continue supportive care Monitor labs and cultures We discussed about avoiding her little puppy biting on her toes to prevent future infections Discussed with nursing staff DONNIE CHAVES MD Jul 18, 2021 08:36
[2021-07-18] MEDS: INSULIN GLARGINE SYRINGE. SQ SCH (08:43)
[2021-07-18] MEDS: POLYETHYLENE GLYCOL 3350 17 GM PACKET. PO SCH (08:54)
[2021-07-18] MEDS: DULoxetine HCL 30 MG CAPSULE.DR PO SCH (08:55)
[2021-07-18] MEDS: ASPIRIN ENTERIC COATED 81 MG TABLET.DR. PO SCH (08:57)
[2021-07-18] MEDS: ACETAMINOPHEN 325 MG TABLET. PO PRN (09:54)
[2021-07-18 11:00] VITALS: BP 137/73
[2021-07-18] MEDS: AMPICILLIN/SULBACTAM 3 GM in IV NORMAL SALINE 100ML 100 ML IV SCH ×2 (11:17→17:21)
--- NOTE | 2021-07-18 13:01 | NUR ---
SS following for discharge planning. SS reviewed pt chart and discussed with pt RN. Pt is from home and is currently on room air. COVID19 negative. ID following. Pt on IV Ampicillin and PO Doxycycline. SS will continue to follow for discharge planning.
--- NOTE | 2021-07-18 13:38 | PDOC ---
[employer] PROGRESS NOTE Date of Service DOS: DATE: 07/18/21 TIME: 13:35 Chief Complaint Chief Complaint Acute encephalopathy - sepsis, Medical noncompliance hyperosmolar syndrom on admit, blood sugar was over 900 - - hypokalemia today, Sepsis - due to UTI, and bacteremia Bacteremia, klebsiella BIGG - vasomotor nephropathy demand ischemia. troponi up on admit, Paroxysmal A-Fib - Anxiety with depression - doing better, Asthma with COPD - nebulizers when COVID 19 negative - breathing wel Diabetes-Type II - insulin as above High Cholesterol - statin Hypertension History of Present Illness History of Present Illness cont the broad abx feels better, nauseated today ID follownig , + E. coli UTI and klebsiella bacteremia more alert today, but lethargic cont abx ID consutl, may change vitals signs much imrpoved from yesterday 07/18/2021 No acute events overnight. Patient seen and examined bedside. Improved mental status. Patient notes that her sugars have been very uncontrolled. She has stopped the Metformin because of diarrhea. She has remembered she was on Ozempic in the past. She knows she is noncompliant with her insulin. We will continue with current antibiotic regimen, IV daptomycin and Unasyn until repeat blood cultures returned. We will continue with her current regimen and likely recommend her to see the label stamper for antidiabetic medications. Vitals/I&O Vitals/I&O: Vital Signs Date Time Temp Pulse Resp B/P (MAP) Pulse Ox O2 Delivery O2 Flow Rate FiO2 07/18/21 11:16 94 Room Air 07/18/21 11:00 98.8 82 18 137/73 (94) 98.8 07/18/21 08:00 1.5 I & O 07/17/21 07/17/21 07/18/21 15:00 23:00 07:00 Intake Total 500 ml 450 ml 400 ml Balance 500 ml 450 ml 400 ml Physical Exam Physical Exam: GENERAL: Alert, awake female in no acute distress. Extremities no edema Left great toe dry superficial wound, no purulence, no drainage, nontender, General: Alert, Oriented X3, Cooperative, moderate distress Lungs: Crackles Abdomen: Normal bowel sounds, Soft, No tenderness, No hepatosplenomegaly, No masses Extremities: No clubbing, No cyanosis, No edema, Normal pulses, No tenderness/swelling Skin: No rashes, No breakdown, No significant lesion Labs Labs: Laboratory Tests Test 07/17/21 16:50 07/17/21 20:02 07/18/21 03:30 07/18/21 08:35 Glucose (Fingerstick) 166 mg/dL (70-99) 119 mg/dL (70-99) 151 mg/dL (70-99) White Blood Count 7.6 x10^3/uL (4.0-11.0) Red Blood Count 4.08 x10^6/uL (3.50-5.40) Hemoglobin 10.7 g/dL (12.0-15.5) Hematocrit 33.8 % (36.0-47.0) Mean Corpuscular Volume 83 fL (79-100) Mean Corpuscular Hemoglobin 26 pg (25-35) Mean Corpuscular Hemoglobin Concent 32 g/dL (31-37) Red Cell Distribution Width 14.4 % (11.5-14.5) Platelet Count 233 x10^3/uL (140-400) Neutrophils (%) (Auto) 55 % (31-73) Lymphocytes (%) (Auto) 32 % (24-48) Monocytes (%) (Auto) 9 % (0-9) Eosinophils (%) (Auto) 4 % (0-3) Basophils (%) (Auto) 1 % (0-3) Neutrophils # (Auto) 4.1 x10^3/uL (1.8-7.7) Lymphocytes # (Auto) 2.4 x10^3/uL (1.0-4.8) Monocytes # (Auto) 0.7 x10^3/uL (0.0-1.1) Eosinophils # (Auto) 0.3 x10^3/uL (0.0-0.7) Basophils # (Auto) 0.0 x10^3/uL (0.0-0.2) Sodium Level 146 mmol/L (136-145) Potassium Level 3.5 mmol/L (3.5-5.1) Chloride Level 111 mmol/L (98-107) Carbon Dioxide Level 30 mmol/L (21-32) Anion Gap 5 (6-14) Blood Urea Nitrogen 16 mg/dL (7-20) Creatinine 0.9 mg/dL (0.6-1.0) Estimated GFR (Cockcroft-Gault) 66.8 Glucose Level 81 mg/dL (70-99) Calcium Level 8.3 mg/dL (8.5-10.1) Test 07/18/21 12:17 Glucose (Fingerstick) 207 mg/dL (70-99) Assessment and Plan Assessmemt and Plan Problems Medical Problems: (1) Acute kidney injury Status: Acute (2) Community acquired pneumonia Status: Acute (3) Generalized weakness Status: Acute (4) Hyperkalemia Status: Acute (5) Hyperosmolar hyperglycemic state (HHS) Status: Acute (6) Requires supplemental oxygen Status: Acute (7) Uncontrolled diabetes mellitus Status: Acute Comment Review of Relevant I have reviewed the following items emery (where applicable) has been applied. Medications: Current Medications Medications (Trade) Dose Ordered Sig/Mo Route PRN Reason Start Time Stop Time Status Last Admin Dose Admin Potassium Chloride (Klor-Con) 20 meq [id number] PO 07/18/21 08:00 07/18/21 08:26 Ampicillin Sodium/ Sulbactam Sodium 3 gm/Sodium Chloride 100 ml @ 200 mls/hr Q6HRS IV 07/18/21 12:00 07/18/21 11:17 Justifications for Admission Other Justification Acute respiratory failure with hypoxia, UTI, COVID-19 YARITZA LEE MD Jul 18, 2021 13:38
[2021-07-18 15:00] VITALS: BP 146/64
[2021-07-18] MEDS: traMADol 50 MG TABLET PO PRN (17:33)
[2021-07-18 19:45] VITALS: BP_SYST 141; BP_SYST 149; BP_DIAS 66; BP_DIAS 75
[2021-07-18] MEDS: DOXYCYCLINE HYCLATE 100 MG TABLET PO SCH (21:34)
[2021-07-18] MEDS: QUEtiapine 100 MG TABLET. PO SCH (21:36)
[2021-07-18] MEDS: traZODone 50 MG TABLET. PO SCH (21:36)
[2021-07-18 23:45] VITALS: BP 113/61
[2021-07-19] MEDS: INSULIN GLARGINE SYRINGE. SQ SCH ×2 (00:26→09:46)
[2021-07-19] MEDS: AMPICILLIN/SULBACTAM 3 GM in IV NORMAL SALINE 100ML 100 ML IV SCH ×2 (00:27→05:20)
[2021-07-19 03:45] VITALS: BP 110/58
[2021-07-19 07:00] VITALS: BP 129/68
[2021-07-19] MEDS: BUDESONIDE 0.5 MG/2 ML NEBU. NEB SCH (07:09)
[2021-07-19] MEDS: ALBUTEROL SULFATE 2.5 MG/3 ML NEBU. NEB SCH ×2 (07:09→11:23)
[2021-07-19] MEDS: INSULIN LISPRO 300 UNITS/3 ML VIAL. SQ SCH ×4 (08:00→13:09)
--- NOTE | 2021-07-19 08:48 | PDOC ---
Infectious Disease Note Subjective: Subjective Patient without complaints Just has been feeling tired Off O2 Denies fever, nausea, vomiting, shortness of breath, diarrhea, abdominal pain, rash Otherwise as above Vital Signs: Vital Signs Vital Signs Date Time Temp Pulse Resp B/P (MAP) Pulse Ox O2 Delivery O2 Flow Rate FiO2 07/19/21 07:50 Room Air 1.5 07/19/21 07:09 95 07/19/21 03:45 98.5 69 20 110/58 (75) 98.5 Physical Exam: PHYSICAL EXAM GENERAL: Alert, awake female in no acute distress. Extremities no edema Left great toe dry superficial wound, no purulence, no drainage, nontender, Medications: Inpatient Meds: Medications reviewed. Labs: Lab Laboratory Tests Test 07/18/21 12:17 07/18/21 17:03 07/18/21 21:00 07/19/21 08:39 Glucose (Fingerstick) 207 mg/dL (70-99) 308 mg/dL (70-99) 278 mg/dL (70-99) 145 mg/dL (70-99) Micro RUN DATE: 07/16/21 [facility] LAB *LIVE* PAGE 1 RUN TIME: 09 Specimen Inquiry PATIENT: ARLEN CHÁVEZ ACCT: [id number] LOC: [address] [place] [address] U: [id number] AGE/SX: 46/F ROOM: 648 RE07/14/[address]: DUNG CLEMONS MD : 1975 BED: 1 DIS: STATUS: ADM IN TLOC: SPEC #: [id number] SYLVIA: 07/14/21 STATUS: COMP REQ #: [id number] RECD: 07/14/[address]: FARRAH VIRAMONTES DO SOURCE: BLOOD ENTR: 07/14/[address]: JANEEN SEALS APRN [facility]: ORDERED: BCULT Procedure Result BLOOD CULTURE Final GRAM NEGATIVE RODS IN 2 OF 4 BOTTLES (2 SETS COLLECTED). CALLED TO JANEEN LOWERY, 6S, 07/15/21 AT 0815 BY Kelsey VARGAS. CULTURES HAVE BEEN SENT TO [facility] FOR FURTHER IDENTIFICATION. AMMMENDED REPORT: RAPID ID ON THIS ORGANISM IS KLEBSIELLA PNEUMONIAE. CALLED TO TAYLOR ON 6 AT 14:10 ON 07/15/21 [facility] AMMENDED REPORT:07/16/21 THE AEROBIC BOTTLE OF THIS SET (SECOND BOTTLE) IS NOW GROWING GRAM POSITIVE COCCI IN CLUSTERS. 1 OF 4 BOTTLES, TWO SETS DRAWN. BOTH ANAEROBIC BOTTLES ARE GROWING GRAM NEGATIVE RODS. CALLED TO JANEEN LAZO RN ON AT 9:00 ON 07/16/21 DW MT SENT TO [facility] FOR FURTHER WORKUP. SENT TO [facility] FOR FURTHER WORKUP * This is a corrected result. * A prior result that was reported as final has been changed. * This is a corrected result. * A prior result that was reported as final has been changed. * This is a corrected result. * A prior result that was reported as final has been changed. RUN DATE: 07/16/21 [facility] LAB *LIVE* PAGE 1 RUN TIME: 904 Specimen Inquiry SPEC: [id number] PATIENT: ARLEN CHÁVEZ [id number] (Continued) CONTINUED ON NEXT PAGE RUN DATE: 07/17/21 [facility] LAB *LIVE* PAGE 1 RUN TIME: 07 Specimen Inquiry --- --------- PATIENT: SAIRAARLEN ACCT: [id number] LOC: [address] [place] [address] U: [id number] AGE/SX: 46/F ROOM: 8 RE07/14/[address]: DUNG CLEMONS MD : 1975 BED: 1 DIS: STATUS: ADM IN TLOC: SPEC #: [id number] SYLVIA: 07/14/21 STATUS: COMP REQ #: [id number] RECD: 07/14/[address] [facility] [address]: FARRAH VIRAMONTES DO SOURCE: BLOOD ENTR: 07/15/[address]: JANEEN SEALS APRN [facility]: ORDERED: BLD CULT - LC Procedure Result BLOOD CULTURE LC Final Final GRAM NEGATIVE RODS SEPSITYPER ID= KLEBSIELLA PNEUMONIAE IDENTIFICATION OBTAINED UTILIZING MBT SEPSITYPER CONFIRMATION TO FOLLOW. FINAL ID= [KLEBSIELLA PNEUMONIAE] KLEBSIELLA PNEUMONIAE ANTIMICROBIAL SUSCEPTIBILITY Final Comment NEG ERWIN 56 KLEBSIELLA PNEUMONIAE ANTIBIOTIC RESULT INTERPRETATION AMPICILLIN/SULBACTAM <=4/2 S AMIKACIN <=16 S AMPICILLIN >16 R AMOXICILLIN/K CLAVULANATE <=8/4 S AZTREONAM <=4 S CEFTRIAXONE <=1 S CEFTAZIDIME <=1 S CEFOTAXIME <=2 S CEFOXITIN <=8 S CEFAZOLIN <=2 S CIPROFLOXACIN <=0.25 S CEFEPIME <=2 S CEFUROXIME <=4 S CEFTAZIDIME/AVIBACTAM <=4 S ERTAPENEM <=0.5 S GENTAMICIN <=2 S LEVOFLOXACIN <=0.5 S MEROPENEM <=1 S PIPERACILLIN/TAZOBACTAM <=8 S TRIMETHOPRIM/SULFAMETHOXAZOLE <=0.5/9.5 S TETRACYCLINE <=4 S TOBRAMYCIN <=2 S Unless otherwise specified, Testing Performed by: [address] [address] For Inquires, the Physician may contact the Microbiology RUN DATE: 07/17/21 [facility] LAB *LIVE* PAGE 2 RUN TIME: 725 Specimen Inquiry SPEC: [id number] PATIENT: CHÁVEZARLEN K [id number] (Continued) Procedure Result CONTINUED ON NEXT PAGE RUN DATE: 07/17/21 [facility] LAB *LIVE* PAGE 3 RUN TIME: 0726 Specimen Inquiry SPEC: [id number] PATIENT: ARLEN CHÁVEZ [id number] (Continued) Procedure Result ANTIMICROBIAL SUSCEPTIBILITY Final (continued) department at [phone] RUN DATE: 07/18/21 [facility] LAB *LIVE* PAGE 1 RUN TIME: 0751 Specimen Inquiry PATIENT: ARLEN CHÁVEZ: [id number] LOC: [address] [place] [address] U: [id number] AGE/SX: 46/F ROOM: 648 RE07/14/[address]: DUNG CLEMONS MD : 1975 BED: 1 DIS: STATUS: ADM IN TLOC: -------- ---- SPEC #: [id number] SYLVIA: 07/14/21 STATUS: COMP REQ #: [id number] RECD: 07/14/[address]: FARRAH VIRAMONTES DO SOURCE: STRA CATH ENTR: 07/14/[address]: DUNG CLEMONS MD [facility]: STR CATH JANEEN SEALS APRN ORDERED: URINE CULTURE Procedure Result URINE CULTURE Final Final 70,000 CFU/ML GRAM NEGATIVE RODS on 07/16/21 at 0815 FINAL ID= [ESCHERICHIA COLI] 50,000 CFU/ML GRAM NEGATIVE RODS on 07/17/21 at 1106 FINAL ID= [KLEBSIELLA PNEUMONIAE] Testing Performed by: [facility] [address] [place] [address] For Inquires, the Physician may contact the Microbiology department at [phone] ESCHERICHIA COLI KLEBSIELLA PNEUMONIAE ANTIMICROBIAL SUSCEPTIBILITY Final Comment Comment NEG ERWIN 56 ESCHERICHIA COLI ANTIBIOTIC RESULT INTERPRETATION AMPICILLIN/SULBACTAM <=4/2 S AMIKACIN <=16 S AMPICILLIN <=8 S AMOXICILLIN/K CLAVULANATE <=8/4 S AZTREONAM 8 S CEFTRIAXONE <=1 S CEFTAZIDIME <=1 S CEFOTAXIME <=2 S CEFOXITIN <=8 S CEFAZOLIN <=2 S CIPROFLOXACIN <=0.25 S CEFEPIME <=2 S CEFUROXIME <=4 S CEFTAZIDIME/AVIBACTAM <=4 S ERTAPENEM <=0.5 S NITROFURANTOIN <=32 S GENTAMICIN <=2 S LEVOFLOXACIN <=0.5 S MEROPENEM <=1 S PIPERACILLIN/TAZOBACTAM <=8 S RUN DATE: 07/18/21 [facility] LAB *LIVE* PAGE 2 RUN TIME: 750 Specimen Inquiry SPEC: [id number] PATIENT: ARLEN CHÁVEZ [id number] (Continued) Procedure Result CONTINUED ON NEXT PAGE - RUN DATE: 07/18/21 [facility] LAB *LIVE* PAGE 3 RUN TIME: 0751 Specimen Inquiry SPEC: [id number] PATIENT: ARLEN CHÁVEZ [id number] (Continued) Procedure Result ANTIMICROBIAL SUSCEPTIBILITY Final (continued) TRIMETHOPRIM/SULFAMETHOXAZOLE <=0.5/9.5 S TETRACYCLINE <=4 S TOBRAMYCIN <=2 S NEG ERWIN 56 KLEBSIELLA PNEUMONIAE ANTIBIOTIC RESULT INTERPRETATION AMPICILLIN/SULBACTAM 8/4 S AMIKACIN <=16 S AMPICILLIN >16 R AMOXICILLIN/K CLAVULANATE <=8/4 S AZTREONAM <=4 S CEFTRIAXONE <=1 S CEFTAZIDIME <=1 S CEFOTAXIME <=2 S CEFOXITIN 16 I CEFAZOLIN <=2 S CIPROFLOXACIN <=0.25 S CEFEPIME <=2 S CEFUROXIME <=4 S CEFTAZIDIME/AVIBACTAM <=4 S ERTAPENEM <=0.5 S NITROFURANTOIN <=32 S GENTAMICIN <=2 S LEVOFLOXACIN <=0.5 S MEROPENEM <=1 S PIPERACILLIN/TAZOBACTAM <=8 S TRIMETHOPRIM/SULFAMETHOXAZOLE <=0.5/9.5 S TETRACYCLINE <=4 S TOBRAMYCIN <=2 S Unless otherwise specified, Testing Performed by: [facility] [address] [place] [address] For Inquires, the Physician may contact the Microbiology department at [phone] END OF REPORT RUN DATE: 07/18/21 [facility] LAB *LIVE* PAGE 1 RUN TIME: 1136 Specimen Inquiry PATIENT: SAIRAARLEN Melendez ACCT: [id number] LOC: [address] [place] [address] U: [id number] AGE/SX: 46/F ROOM: 648 RE07/14/[address]: DUNG CLEMONS MD : 1975 BED: 1 DIS: STATUS: ADM IN TLOC: ---- -------- SPEC #: :[id number] SYLVIA: 07/14/21 STATUS: COMP REQ #: [id number] RECD: 07/14/[address] [facility] [address]: DUNG CLEMONS MD SOURCE: BLOOD ENTR: 07/16/[address]: MARSHALL CHAVES MD [facility]: ARNELJANEENRA Dustin JEAN ORDERED: BLD CULT - LC COMMENTS: SECOND BOTTLE, [id number], MR [id number] Procedure Result BLOOD CULTURE LC Final Final GRAM POSITIVE COCCI FINAL ID= [STAPHYLOCOCCUS HOMINIS] Growth of organism in only one of multiple sets; isolation does not necessarily indicate infection. Contact Microbiology Lab if further testing is clinically warranted. STAPHYLOCOCCUS HOMINIS Unless otherwise specified, Testing Performed by: [address] [address] For Inquires, the Physician may contact the Microbiology department at [phone] Objective: Assessment: 1. Sepsis from gram-negative bacteremia. 2. Gram-negative bacteremia, source appears genitourinary.Kleb and GPC in clusters,latter ID pending " corrected " report reviewed from microbiology lab 3. Fever. 4. Acute kidney injury. 5. Diabetes mellitus, poorly controlled. 6. UTI Klebsiella and e coli 7. History of cervical cancer. 8. Peripheral neuropathy. Wound over left great toe superficial not infected with dog exposure, may have had superimposed cellulitis. X-ray negative for acute changes. 9. Anxiety and depression. Dog exposure Plan: Plan of Care Continue Unasyn for now Continue doxycycline Optimal diabetes control When patient is ready for discharge can transition to Augmentin and doxycycline for 10 more days. X-ray left foot reviewed Continue local wound care as directed Continue supportive care Monitor labs and cultures We discussed about avoiding her little puppy biting on her toes to prevent future infections Discussed with nursing staff DONNIE CHAVES MD Jul 19, 2021 08:48
[2021-07-19] MEDS: NYSTATIN TOPICAL POWDER 15GM BOTTLE. TP SCH (09:00)
[2021-07-19] MEDS: POLYETHYLENE GLYCOL 3350 17 GM PACKET. PO SCH (09:00)
[2021-07-19] MEDS: FLUTICASONE 50MCG/NASAL SPRAY 16GM BOTTLE. NS SCH (09:00)
[2021-07-19] MEDS: DULoxetine HCL 30 MG CAPSULE.DR PO SCH (09:42)
[2021-07-19] MEDS: ACETAMINOPHEN 325 MG TABLET. PO PRN (09:42)
[2021-07-19] MEDS: APIXABAN 5 MG TABLET. PO SCH (09:42)
[2021-07-19] MEDS: POTASSIUM CHLORIDE 20 MEQ TABLET.ER. PO SCH (09:43)
[2021-07-19] MEDS: TOPIRAMATE 25 MG TABLET. PO SCH (09:45)
[2021-07-19] MEDS: METOPROLOL TART IMMED RELEASE 25 MG TABLET. PO SCH (09:45)
[2021-07-19] MEDS: ASPIRIN ENTERIC COATED 81 MG TABLET.DR. PO SCH (09:45)
[2021-07-19] MEDS: DOXYCYCLINE HYCLATE 100 MG TABLET PO SCH (09:45)
[2021-07-19] MEDS: BENZONATATE 100 MG CAPSULE. PO SCH (09:45)
[2021-07-19] MEDS: GABAPENTIN 400 MG CAPSULE. PO SCH (09:45)
--- NOTE | 2021-07-19 10:15 | NUR ---
SS following up with discharge planning. SS reviewed pt chart and discussed with pt RN. Pt is currently on room air. COVID19 negative. Pt on IV Ampicillin and PO Doxycycline. Wound care consulted. Per ID, pt to switch to PO Augmentin and PO Doxycycline for 10 days at discharge. Discharge plan is to home when medically ready for discharge. SS will continue to follow for discharge planning.
[2021-07-19 11:00] VITALS: BP 160/62
[2021-07-19] MEDS ORDERED: DOXY100T PO (12:01)
[2021-07-19] MEDS ORDERED: NYST15PO2 TP (12:01)
--- NOTE | 2021-07-19 12:03 | DISCH ---
DISCHARGE INSTRUCTIONS Condition on Discharge Condition on Discharge: Stable Activity After Discharge Activity Instructions for Disc: Activity as tolerated Bathing Instructions: No Tub Bath until see Lifting Instructions after Dis: No heavy lifting, No pulling or pushing Exercise Instruction after Dis: Progress as tolerated Driving Instructions after Dis: Do not drive Weight Bearing Status after Di: As tolerated Diet after Discharge Diet after Discharge: Diabetic No Calorie Level Diet Texture: Regular Liquid Texture: Thin Liquid Swallowing Supervision: None needed Wound Incision Care Wound/Incision Care: No wound care needed Checks after Discharge Checks after discharge: Check blood press - daily, Check blood sugar, ac/hs Contacting the DRIsidro after DC Call your doctor for: If your condition worsens Follow-Up Follow up with: PCP within 2 weeks of discharge Treatment/Equipment after DC Adaptive Equipment Issued: None YARITZA DOVER MD Jul 19, 2021 12:02
[2021-07-19] MEDS ORDERED: AMOX1TAB58 PO (13:49)
--- NOTE | 2021-07-19 14:51 | NUR ---
Wound/Ostomy Care Wound Type/Assessment: Wound consult for dog bit to left great toe, pt has open wound (DFU) to distal great toe. Measured and assessed wound Treatment Recommendations/Plan: Cleanse wound, apply silver contact layer (remove both pieces of plastic), cover with foam dressing. Change every 3 days. Education provided: WC POC Offloading surface/device: na Recommended Referrals/Tests: Follow up in wound clinic Discharge Recommendations for dressings: see above.
--- NOTE | 2021-07-19 15:56 | NUR ---
Discharging patient to home. Discharge instructions given. piv and heart monitor removed. Awaits family.
--- NOTE | 2021-07-19 16:09 | NUR ---
ESCORTED PATIENT OFF UNIT PER WHEELCHAIR INTO A PRIVATE VEHICLE.
--- NOTE | 2021-07-20 17:47 | PDOC3 ---
[facility]-Discharge Summary Date of Admission: Date of Admission: Jul 14, 2021 Date of Discharge: Date of Discharge: Jul 19, 2021 Discharge Diagnosis: Discharge Diagnosis: Acute encephalopathy - sepsis, Medical noncompliance hyperosmolar syndrom on admit, blood sugar was over 900 - - hypokalemia today, Sepsis - due to UTI, and bacteremia Bacteremia, klebsiella BIGG - vasomotor nephropathy demand ischemia. troponi up on admit, Paroxysmal A-Fib - Anxiety with depression - doing better, Asthma with COPD - nebulizers when COVID 19 negative - breathing wel Diabetes-Type II - insulin as above High Cholesterol - statin Hypertension Hospital Course: Hospital Course: 46 yo F w/ PMHx diabetes type 2, history of clostridium difficile, history of MRSA, peripheral neuropathy, atrial fibrillation on warfarin therapy, coronary artery disease, hypertension, COPD, obesity, GERD, history of cervical cancer, depression, anxiety, anemia presenting via EMS from home for altered mentation. She has had tremors, weakness and glucose readings in the 500s and fever 102F at home for the past 24 hours prior to arrival. She has had increased shortness of breath and cough as well as diarrhea for past 72 hours. EMS was called by family member given their concern about patient hallucinating and talking to people and animals that aren't there today. On arrival, patient was febrile, tachycardic with a [id number] glucose reading greater than 500. Her only audible complaint is stomach pain and cough. She is not able to definitively confirm if she got vaccinated against COVID-19 but she did have COVID 19 in December 2020. Labs with WBC 10.8, Hb 13.4, platelets 176, NA 126, K5.4, BUN 22, CR 1.8, glucose 904, high-sensitivity troponin 420, procalcitonin 1.88, UDS negative, UA positive esterase and nitrates, rapid influenza negative, rapid COVID-19 negative EKG sinus tachycardia at 115 bpm, unremarkable intervals, left axis deviation, no obvious ischemic findings, no ST elevation or TWI Chest radiograph scattered bilateral opacities. Given aggressive IVF, rocephin, IV insulin. Admitted for further care. cont the broad abx feels better, nauseated today ID [email or web address] , + E. coli UTI and klebsiella bacteremia more alert today, but lethargic cont abx ID consutl, may change vitals signs much imrpoved from yesterday 07/18/2021 No acute events overnight. Patient seen and examined bedside. Improved mental status. Patient notes that her sugars have been very uncontrolled. She has stopped the Metformin because of diarrhea. She has remembered she was on Ozempic in the past. She knows she is noncompliant with her insulin. We will continue with current antibiotic regimen, IV daptomycin and Unasyn until repeat blood cultures returned. We will continue with her current regimen and likely recommend her to see the platen builder up for antidiabetic medications. By day of discharge, pt was clinically stable and ready for discharge. She will need to continue on Augmentin and Doxycycline for her foot infection. I have resumed her home insulin regimen pre-hospital admission and she will need close follow up with her PCP in order for referral to an [employer]. Rest of hospital course was uneventful Disposition: Disposition/Orders: D/C to Home Activity: Activity: Resume previous activity Diet: Diet: Consistent Carbohydrate Medications: Home Meds Active Scripts Amoxicillin/Potassium Clav (AUGMENTIN 500-125 TABLET) 1 Each Tablet, 1 TAB PO BID for foot infection for 7 Days, #14 TAB 0 Refills Prov:YARITZA DOVER MD 07/19/21 Nystatin (NYAMYC) 15 Gm Powder, 1 DANIEL TP BID for skin funal infection for 7 Days, #1 BOTTLE Prov:YARITZA DOVER MD 07/19/21 Doxycycline Hyclate (DOXYCYCLINE HYCLATE) 100 Mg Tablet, 100 MG PO BID for foot infection for 7 Days, #14 TAB Prov:YARITZA DOVER MD 07/19/21 Insulin Lispro (Admelog) 100 Unit/1 Ml Vial, 0 UNITS SQ TIDWMEALS for DIABETES for 30 Days, #2 EACH Prov:GRAY CAMACHO MD 01/03/21 Insulin Glargine,Hum.rec.anlog (LANTUS) 100 Unit/1 Ml Vial, 70 UNIT SQ BID for DIABETES for 30 Days, #2 EACH Prov:GRAY CAMACHO MD 01/03/21 Mag Hydrox/Al Hydrox/Simeth (MAG-AL PLUS XS SUSPENSION) 30 Ml Oral.susp, 30 ML PO PRN Q3HRS PRN for HEARTBURN / GAS for 14 Days, #120 MISC Prov:GRAY CAMACHO MD 01/03/21 Calcium Carbonate (CALCIUM CARBONATE) 200 Mg Tab.chew, 500 MG PO PRN Q3HRS PRN for UPSET STOMACH for 30 Days, #60 TAB.CHEW Prov:GRAY CAMACHO MD 01/03/21 Benzonatate (BENZONATATE) 100 Mg Capsule, 100 MG PO DMQ727 for COUGH for 30 Days, #90 CAP Prov:GRAY CAMACHO MD 01/03/21 Acetaminophen (ACETAMINOPHEN) 325 Mg Tablet, 650 MG PO PRN Q6HRS PRN for Headaches, Temp > 101.5F for 30 Days, #60 TAB Prov:GRAY CAMACHO MD 01/03/21 Lactobacillus Rhamnosus Gg (CULTURELLE) 1 Each Cap.sprink, 1 CAP PO BID for supplement for 30 Days, #60 CAP Prov:GRAY CAMACHO MD 01/23/20 Polyethylene Glycol 3350 (POLYETHYLENE GLYCOL 3350) 17 Gm Powd.pack, 17 GM PO DAILY for prevent hard stools for 14 Days, #14 PKT Prov:GRAY CAMACHO MD 01/23/20 Ondansetron (ZOFRAN ODT) 4 Mg Tab.rapdis, 1 TAB SL Q8HRS PRN for NAUSEA, #15 TAB Prov:NELLI MILAN APRN 08/30/17 Diltiazem HCl (Diltiazem 24Hr Cd) 180 Mg Cap.er.24h, 180 MG PO DAILY, #30 TAB 0 Refills Prov:MARLENA CHAVIS MD 12/28/16 Reported Medications Fenofibrate Nanocrystallized (FENOFIBRATE) 145 Mg Tablet, 1 TAB PO DAILY for hld, #30 TAB 5 Refills 12/28/20 Tizanidine Hcl (TIZANIDINE HCL) 4 Mg Tablet, 2 TAB PO QHS for insomnia, #30 TAB 12/28/20 Oxybutynin Chloride (OXYBUTYNIN CHLORIDE ER) 10 Mg Tab.er.24, 1 TAB PO DAILY for urinary frequency, #30 TAB 5 Refills 12/28/20 Quetiapine Fumarate (SEROQUEL) 50 Mg Tablet, 1 TAB PO QHS for sleep, #30 TAB 2 Refills 12/28/20 Metoprolol Tartrate (METOPROLOL TARTRATE) 25 Mg Tablet, 1 TAB PO BID for htn, #180 TAB 1 Refill 12/28/20 Duloxetine Hcl (CYMBALTA) 60 Mg Capsule.dr, 1 CAP PO DAILY for depression, #90 CAP 3 Refills 12/28/20 Clonazepam (KLONOPIN) 0.5 Mg Tablet, 0.5 MG PO PRN TID PRN for ANXIETY / AGITATION, TAB 01/19/20 Apixaban (ELIQUIS) 5 Mg Tablet, 5 MG PO BID for blood thinner, TAB 01/19/20 Fluticasone Propionate (FLUTICASONE PROPIONATE NASAL SPRAY) 16 Gm [place].susp, 2 SPR MANDIE BID 04/30/18 Clonidine Hcl (CLONIDINE HCL) 0.1 Mg Tablet, 1 TAB PO BID 04/30/18 Topiramate (TOPIRAMATE) 25 Mg Tablet, 1 TAB PO BID, #60 TAB 04/29/18 Insulin Lispro (HUMALOG) 100 Unit/1 Ml Cartridge, 55 UNIT SQ TIDWMEALS, EACH 04/29/18 Trazodone Hcl (TRAZODONE HCL) 50 Mg Tablet, 50 MG PO HS, TAB 05/07/17 Aspirin (ASPIRIN EC) 81 Mg Tablet.dr, 81 MG PO DAILY 10/30/16 Gabapentin (GABAPENTIN) 800 Mg Tablet, 800 MG PO QID for pain, TAB 07/28/16 Omeprazole (OMEPRAZOLE) 40 Mg Capsule.dr, 40 MG PO DAILY, CAP 07/28/16 Ferrous Sulfate (IRON) 325 Mg Tablet, 325 MG PO DAILY 07/28/16 Albuterol Sulfate (ALBUTEROL SULFATE CONC NEB SOLN) 2.5 Mg/0.5 Ml Vial.neb, 2.5 MG NEB Q4HRS PRN for SHORTNESS OF BREATH, EACH 0 Refills 07/28/16 Budesonide/Formoterol Fumarate (SYMBICORT 160-4.5 MCG INHALER) 10.2 Gm Hfa.aer.ad, 2 PUFF IH BID, INHALER 07/28/16 Discontinued Scripts Doxycycline Hyclate (DOXYCYCLINE HYCLATE) 100 Mg Tablet, 1 TAB PO BID for PNEUMONIA for 7 Days, #14 TAB Prov:GRAY CAMACHO MD 01/03/21 Dexamethasone (Decadron) 6 Mg Tablet, 6 MG PO DAILY08 for COVID for 7 Days, #7 TAB Prov:GRAY CAMACHO MD 01/03/21 Scheduled Amoxicillin/Potassium Clav (Augmentin 500-125 Tablet), 1 TAB PO BID Apixaban (Eliquis), 5 MG PO BID, (Reported) Aspirin (Aspirin Ec), 81 MG PO DAILY, (Reported) Benzonatate (Benzonatate), 100 MG PO RUL765 Budesonide/Formoterol Fumarate (Symbicort 160-4.5 Mcg Inhaler), 2 PUFF IH BID, (Reported) Clonidine Hcl (Clonidine Hcl), 1 TAB PO BID, (Reported) Diltiazem HCl (Diltiazem 24Hr Cd), 180 MG PO DAILY Doxycycline Hyclate (Doxycycline Hyclate), 100 MG PO BID Duloxetine Hcl (Cymbalta), 1 CAP PO DAILY, (Reported) Fenofibrate Nanocrystallized (Fenofibrate), 1 TAB PO DAILY, (Reported) Ferrous Sulfate (Iron), 325 MG PO DAILY, (Reported) Fluticasone Propionate (Fluticasone Propionate Nasal [place]), 2 SPR MANDIE BID, (Reported) Gabapentin (Gabapentin), 800 MG PO QID, (Reported) Insulin Glargine,Hum.rec.anlog (Lantus), 70 UNIT SQ BID Insulin Lispro (Humalog), 55 UNIT SQ TIDWMEALS, (Reported) Insulin Lispro (Admelog), 0 UNITS SQ TIDWMEALS Lactobacillus Rhamnosus Gg (Culturelle), 1 CAP PO BID Metoprolol Tartrate (Metoprolol Tartrate), 1 TAB PO BID, (Reported) Nystatin (Nyamyc), 1 DANIEL TP BID Omeprazole (Omeprazole), 40 MG PO DAILY, (Reported) Oxybutynin Chloride (Oxybutynin Chloride Er), 1 TAB PO DAILY, (Reported) Polyethylene Glycol 3350 (Polyethylene Glycol 3350), 17 GM PO DAILY Quetiapine Fumarate (Seroquel), 1 TAB PO QHS, (Reported) Tizanidine Hcl (Tizanidine Hcl), 2 TAB PO QHS, (Reported) Topiramate (Topiramate), 1 TAB PO BID, (Reported) Trazodone Hcl (Trazodone Hcl), 50 MG PO HS, (Reported) Scheduled PRN Acetaminophen (Acetaminophen), 650 MG PO PRN Q6HRS PRN for Headaches, Temp > 101.5F Albuterol Sulfate (Albuterol Sulfate Conc Neb Soln), 2.5 MG NEB Q4HRS PRN for SHORTNESS OF BREATH, (Reported) Calcium Carbonate (Calcium Carbonate), 500 MG PO PRN Q3HRS PRN for UPSET STOMACH Clonazepam (Klonopin), 0.5 MG PO PRN TID PRN for ANXIETY / AGITATION, (Reported) Mag Hydrox/Al Hydrox/Simeth (Mag-Al Plus Xs Suspension), 30 ML PO PRN Q3HRS PRN for HEARTBURN / GAS Ondansetron (Zofran Odt), 1 TAB SL Q8HRS PRN for NAUSEA Discontinued Medications Dexamethasone (Decadron), 6 MG PO DAILY08 Doxycycline Hyclate (Doxycycline Hyclate), 1 TAB PO BID Total Time: Total Time: Total time spent was 32 minutes in preparing scripts, discharge planning with SW and RN, and preparing this discharge summary. Patient seen and examined on day of discharge. Justicifation of Admission Dx: Justifications for Admission: Justification of Admission Dx: N/A YARITZA DOVER MD Jul 20, 2021 17:47
== END 2021-07-19 16:05 | disposition home or self-care (01) | DRG 871 ==
LOC: ER 16:13 → 6 SOUTH 19:04
PROVIDERS: ADMIT Internal Medicine; ATTEND Internal Medicine
DX: A41.50 Gram-negative sepsis, unspecified (principal); N17.0 Acute kidney failure with tubular necrosis; J18.9 Pneumonia, unspecified organism; I24.8 Other forms of acute ischemic heart disease; J44.0 Chronic obstructive pulmonary disease with (acute) lower respiratory infection; N39.0 Urinary tract infection, site not specified; G93.40 Encephalopathy, unspecified; B96.1 Klebsiella pneumoniae [K. pneumoniae] as the cause of diseases classified elsewhere; B96.20 Unspecified Escherichia coli [E. coli] as the cause of diseases classified elsewhere; B96.89 Other specified bacterial agents as the cause of diseases classified elsewhere; E11.42 Type 2 diabetes mellitus with diabetic polyneuropathy; E11.65 Type 2 diabetes mellitus with hyperglycemia; E78.00 Pure hypercholesterolemia, unspecified; E87.5 Hyperkalemia; E87.6 Hypokalemia; F41.8 Other specified anxiety disorders; G25.81 Restless legs syndrome; I10 Essential (primary) hypertension; I25.10 Atherosclerotic heart disease of native coronary artery without angina pectoris; I48.0 Paroxysmal atrial fibrillation; E66.9 Obesity, unspecified; G89.29 Other chronic pain; K21.9 Gastro-esophageal reflux disease without esophagitis; M19.90 Unspecified osteoarthritis, unspecified site; Z20.822 Contact with and (suspected) exposure to COVID-19; Z79.01 Long term (current) use of anticoagulants; Z79.4 Long term (current) use of insulin; Z85.41 Personal history of malignant neoplasm of cervix uteri; Z86.14 Personal history of Methicillin resistant Staphylococcus aureus infection; Z87.891 Personal history of nicotine dependence; Z90.710 Acquired absence of both cervix and uterus; Z91.14 Patient's other noncompliance with medication regimen; Z91.19 Patient's noncompliance with other medical treatment and regimen; Z98.891 History of uterine scar from previous surgery; Z68.37 Body mass index [BMI] 37.0-37.9, adult; Z88.8 Allergy status to other drugs, medicaments and biological substances
CPT/HCPCS: 36415; 71045; 73620; 80048; 80053; 80307; 81001; 82010; 82947; 82962; 83036; 83605; 84145; 84484; 85025; 87015; 87040; 87077; 87086; 87186; 87205; 87426; 87804; 93005; 94640; 94760; 96361; 96372; 96374; 96375; G0480; J0295; J0696; J0878; J1815; J2405; J2543; J3475; J3490; J7030; J7040; J7060; U0003; U0005; 99285-25; G0378; J7613; J7626

== ENCOUNTER 2021-10-05 16:12 | Emergency (ER) | payer MEDICARE, MEDICAID ==
[~2021-10-05] VITALS: Ht 160 cm; Wt 91.8 kg
[~2021-10-05 16:12] MED LIST changes: +AMOX1TAB58 PO; +NYST15PO2 TP
[2021-10-05] MEDS ORDERED: ASPIRIN 325 MG TABLET PO ONE (16:45)
--- NOTE | 2021-10-05 17:00 | PHYS DOC ---
Past Medical History Past Medical History: A-Fib, COPD, Diabetes-Type II, Hypertension Additional Past Medical Histor: NEUROPATHY;RLS,SIRS,RESP FAILURE,ARRHYTHMIA,COVID-DECEMBER 2020 (COLEMAN TIERNEY BUNDLES HANGER) Past Surgical History: , Hysterectomy (COLEMAN TIERNEY BUNDLES HANGER) Smoking Status: Current Every Day Smoker Alcohol Use: None Drug Use: None (COLEMAN TIERNEY BUNDLES HANGER) General Adult EDM: Chief Complaint: CHEST PAIN HPI: HPI: Patient is a 46 year old female with history of A. fib on Eliquis, fibromyalgia, hypertension, COPD currently not smoking, who presents to the ED today complaining of a sharp 7 out of 10 substernal chest pain nonradiating, symptoms began yesterday after having a COVID Pfiezer booster shot at 630pm. Patient denies anything specifically relieving the pain but states pushing on the chest exacerbates the pain. Denies any fever, coughing, shortness of breath. (COLEMAN TIERNEY BUNDLES HANGER) Review of Systems: Review of Systems: Constitutional: Denies fever or chills. [] Eyes: Denies change in visual acuity. [] HENT: Denies nasal congestion or sore throat. [] Respiratory: Denies cough or shortness of breath. [] Cardiovascular: Reports chest pain GI: Denies abdominal pain, nausea, vomiting, bloody stools or diarrhea. [] : Denies dysuria. [] Musculoskeletal: Denies back pain or joint pain. [] Integument: Denies rash. [] Neurologic: Denies headache, focal weakness or sensory changes. [] Psychiatric: Denies depression or anxiety. [] (COLEMAN TIERNEY BUNDLES HANGER) Heart Score: C/O Chest Pain: N/A Risk Factors: Risk Factors: DM, Current or recent (<one month) smoker, HTN, HLP, family history of CAD, obesity. Risk Scores: Score 0 - 3: 2.5% MACE over next 6 weeks - Discharge Home Score 4 - 6: 20.3% MACE over next 6 weeks - Admit for Clinical Observation Score 7 - 10: 72.7% MACE over next 6 weeks - Early Invasive Strategies (COLEMAN TIERNEY BUNDLES HANGER) Allergies: Allergies: Allergies Coded Allergies Type Severity Reaction Last Updated Verified carbidopa Allergy Intermediate 10/05/21 Yes (COLEMAN TIERNEY APRN) Physical Exam: PE: Constitutional: Well developed, well nourished, no acute distress, non-toxic appearance. [] HENT: Normocephalic, atraumatic, bilateral external ears normal, oropharynx moist, no oral exudates, nose normal. [] Eyes: PERRLA, EOMI, conjunctiva normal, no discharge. [] Neck: Normal range of motion, no tenderness, supple, no stridor. [] Cardiovascular: Reproducible substernal chest pain on palpation of the chest. Tachycardic Lungs & Thorax: Bilateral breath sounds clear to auscultation [] Abdomen: Bowel sounds normal, soft, no tenderness, no masses, no pulsatile masses. [] Skin: Warm, dry, no erythema, no rash. [] Back: No tenderness, no CVA tenderness. [] Extremities: No tenderness, no cyanosis, no clubbing, ROM intact, no edema. [] Neurologic: Alert and oriented X 3, normal motor function, normal sensory function, no focal deficits noted. [] Psychologic: Affect normal, judgement normal, mood normal. [] (COLEMAN TIERNEY APRN) EKG: EK interpreted by Dr. Martínez sinus tachycardia heart rate no STEMI] (COLEMAN TIERNEY APRN) Radiology/Procedures: Radiology/Procedures: []PROCEDURE: PORTABLE CHEST 1V EXAM: XR CHEST 1V 10/05/2021 4:57 PM CLINICAL INDICATION: Chest pain after being shot COMPARISON: Chest radiograph 07/14/2021 TECHNIQUE: AP upright view of the chest FINDINGS: The heart and mediastinum are normal. Lungs are adequately expanded. There is unchanged elevation of the right hemidiaphragm. No consolidation, pleural effusion, or pneumothorax. Pulmonary vascularity is normal. The thoracic skeleton is intact. IMPRESSION: No acute cardiopulmonary abnormality. Electronically signed by: Edelmira Hauser MD (10/05/2021 5:00 PM) [id number] DICTATED and SIGNED BY: EDELMIRA HAUSER MD DATE: 10/05/21 [id number] (COLEMAN TIERNEY APRN) Course & Med Decision Making: Course & Med Decision Making Pertinent Labs and Imaging studies reviewed. (See chart for details) This is a 46-year-old female patient presented to the ED today with chest pain that began yesterday after receiving a COVID booster vaccine at 630pm EKG is negative, 2 high-sensitivity troponins were done 3 hours apart, both of them at 12. D-dimer is normal. CBC with a WBC of 12.1, CMP with glucose of 398, anion gap is normal, CO2 is normal. Patient states she has history of uncontrolled diabetes type 2. She states her PCP is aware. Currently she states she ran out of Lantus. Heart rates are running in the low 100s, she is on metoprolol for rate control BID for A. fib. Dose was given this evening Patient was discharged home. 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 Provided return precautions. (COLEMAN TIERNEY APRN) Course & Med Decision Making This patient was seen by the nurse practitioner. I was available for consultation, but I was not informed of this patient's work-up, complaints, I was not involved in the patient's medical decision making I received this chart after the patient had been discharged home. It appears that the patient was discharged with a prescription for insulin, I am unable to see if the patient has prescribed insulin previously or if this is part of her regular medication regimen. The dayshift physician had signed the EKG reportedly, the patient was left over from the day shift, I was not given any notification of this patient's present in the emergency department, I was unable to participate in the patient medical decision making or disposition making of this patient. I was fully available for consultation, but this was not discussed with me. (JENNI GARCIA DO) Jeramyon Disclaimer: Parminder Disclaimer: This electronic medical record was generated, in whole or in part, using a voice recognition dictation system. (COLEMAN TIERNEY APRN) Departure Departure Impression: Primary Impression: Chest pain Qualified Codes: R07.9 - Chest pain, unspecified Additional Impression: Hyperglycemia Disposition: 01 HOME / SELF CARE / HOMELESS Condition: STABLE Referrals: JANEEN SEALS APRN (PCP) follow up with your cardilogist and primary care doctor in the course of this week Patient Instructions: Chest Pain (Nonspecific), Hyperglycemia Additional Instructions: You were evaluated in the emergency room for chest pain. Your cardiac work-up is negative for any acute findings follow up with your cardilogist and primary care doctor in the course of this week Scripts Insulin Glargine,Hum.rec.anlog (LANTUS SOLOSTAR) 100 Unit/1 Ml Insuln.pen 50 UNIT SQ BID, #100 ML 3 Refills Prov: COLEMAN TIERNEY APRN 10/05/21 COLEMAN TIERNEY APRN Oct 05, 2021 17:00 JENNI GARCIA DO Oct 06, 2021 01:46
[2021-10-05 17:05] LABS: BASO # 0.1 x10^3/uL (0.0-0.2); BASO % 1 % (0-3); EOS # 0.1 x10^3/uL (0.0-0.7); EOS % 1 % (0-3); HEMOGLOBIN 12.2 g/dL (12.0-15.5); LYMPH # 2.1 x10^3/uL (1.0-4.8); LYMPH % 17 % (24-48); MEAN CORPUSCULAR HEMOGLOBIN 26 pg (25-35); MEAN CORPUSCULAR HGB CONC 32 g/dL (31-37); MEAN CORPUSCULAR VOLUME 82 fL (79-100); MONO # 0.6 x10^3/uL (0.0-1.1); MONO % 5 % (0-9); NEUT # 9.1 x10^3/uL (1.8-7.7); NEUT % 75 % (31-73); PLATELET COUNT 239 x10^3/uL (140-400); RED BLOOD COUNT 4.62 x10^6/uL (3.50-5.40); RED CELL DISTRIBUTION WIDTH 13.8 % (11.5-14.5); WHITE BLOOD COUNT 12.1 x10^3/uL (4.0-11.0)
[2021-10-05] MEDS: MORPHINE SULFATE 4 MG/ML INJ. IV/SQ PRN ×3 (17:10→22:57)
[2021-10-05] MEDS: NITROGLYCERIN SUBLINGUAL 0.4 MG BOTTLE OF 25. SL PRN ×3 (17:10→20:15)
[2021-10-05 17:23] LABS: CALCIUM 8.3 mg/dL (8.5-10.1); CREATININE 0.9 mg/dL (0.6-1.0); GFR 66.8; POTASSIUM 4.5 mmol/L (3.5-5.1)
[2021-10-05 17:28] LABS: ALBUMIN 3.1 g/dL (3.4-5.0); ALBUMIN/GLOBULIN RATIO 0.8 (1.0-1.7); MAGNESIUM 1.9 mg/dL (1.8-2.4); TOTAL BILIRUBIN 0.5 mg/dL (0.2-1.0)
[2021-10-05 17:59] LABS: BILIRUBIN,URINE NEGATIVE (NEG); CLARITY,URINE CLOUDY; COLOR,URINE YELLOW; NITRITE,URINE NEGATIVE (NEG); PH,URINE 7.5 (<5.0-8.0); PROTEIN,URINE NEGATIVE (NEG-TRACE)
[2021-10-05 18:05] LABS: BARBITURATES NEG (NEG); BENZODIAZEPINES NEG (NEG); CANNABINOIDS NEG (NEG); COCAINE NEG (NEG); METHADONE NEG (NEG); OPIATES POS (NEG); PHENCYCLIDINE NEG (NEG)
[2021-10-05 18:08] LABS: AMPHETAMINE/METHAMPHETAMINE NEG (NEG)
[2021-10-05 18:43] LABS: BACTERIA,URINE FEW /HPF (0-FEW)
[2021-10-05 18:44] LABS: RBC,URINE RARE /HPF (0-2); WBC,URINE 20-40 /HPF (0-4); YEAST,URINE PRESENT /HPF
[2021-10-05 18:45] LABS: HYALINE CASTS, URINE OCCASIONAL /HPF
[2021-10-05] MEDS ORDERED: INSULIN REGULAR 100 UNIT/ML 3ML VIAL. SQ ONE (20:15)
[2021-10-05] MEDS ORDERED: METOPROLOL TART IMMED RELEASE 25 MG TABLET. PO ONE (22:00)
[2021-10-05] MEDS ORDERED: INSU100I13 SQ (22:04)
[2021-10-05 22:47] VITALS: BP 155/66
--- NOTE | 2021-10-06 06:50 | EKG ---
[facility] [address] [place] [address] Test Date: 2021-10-05 Test Time: 16:18:31 Pat Name: ARLEN CHÁVEZ Department: Room: Gender: F Unit Educator: : 1975 Requested By: COLEMAN TIERNEY Order Number: [id number] Reading MD: Harshal Lal MD Measurements Intervals [place] Rate: 109 P: 38 [place]: 160 QRS: -36 QRSD: 82 T: 48 QT: 338 QTc: 457 Interpretive Statements SINUS TACHYCARDIA LAD LVH POOR R WAVE PROGRESSION Electronically Signed On 10-06-2021 8:43:54 TELECOMMUNICATIONS TECHNICIAN by Harshal Lal MD
== END 2021-10-05 23:03 | disposition home or self-care (01) ==
LOC: ER 16:12
DX: R07.2 Precordial pain (principal); I48.91 Unspecified atrial fibrillation; J44.9 Chronic obstructive pulmonary disease, unspecified; E11.40 Type 2 diabetes mellitus with diabetic neuropathy, unspecified; I10 Essential (primary) hypertension; G25.81 Restless legs syndrome; F17.200 Nicotine dependence, unspecified, uncomplicated; Z88.8 Allergy status to other drugs, medicaments and biological substances
CPT/HCPCS: 36415; 71045; 80053; 80307; 81001; 82962; 83735; 83880; 84443; 84484; 85025; 85379; 87086; 93005; 96372; 99285; J1815; J2270

== ENCOUNTER 2022-01-29 15:15 | Inpatient (IN) | payer MEDICARE, MEDICAID ==
[~2022-01-29] VITALS: Ht 160 cm; Wt 88.3 kg
[2022-01-29] VITALS (9 sets, daily range): BP systolic 133–174; BP diastolic 72–98
[~2022-01-29 15:15] MED LIST changes: +FEXO-213 PO; -FEXO180T16 PO
[2022-01-29] MEDS ORDERED: IV NORMAL SALINE 1000ML BAG 1,000 ML IV ONE ×2 (15:30)
[2022-01-29 15:35] LABS: BASO # 0.1 x10^3/uL (0.0-0.2); BASO % 1 % (0-3); EOS # 0.1 x10^3/uL (0.0-0.7); EOS % 1 % (0-3); HEMATOCRIT 36.3 % (36.0-47.0); HEMOGLOBIN 10.9 g/dL (12.0-15.5); LYMPH # 1.2 x10^3/uL (1.0-4.8); LYMPH % 10 % (24-48); MEAN CORPUSCULAR HEMOGLOBIN 26 pg (25-35); MEAN CORPUSCULAR HGB CONC 30 g/dL (31-37); MEAN CORPUSCULAR VOLUME 87 fL (79-100); MONO # 0.6 x10^3/uL (0.0-1.1); MONO % 5 % (0-9); NEUT # 10.3 x10^3/uL (1.8-7.7); NEUT % 84 % (31-73); PLATELET COUNT 330 x10^3/uL (140-400); RED BLOOD COUNT 4.15 x10^6/uL (3.50-5.40); RED CELL DISTRIBUTION WIDTH 15.2 % (11.5-14.5); WHITE BLOOD COUNT 12.2 x10^3/uL (4.0-11.0)
[2022-01-29 15:53] LABS: ALBUMIN 2.6 g/dL (3.4-5.0); ALBUMIN/GLOBULIN RATIO 0.5 (1.0-1.7); CALCIUM 8.6 mg/dL (8.5-10.1); GFR 26.6; POTASSIUM 4.2 mmol/L (3.5-5.1); TOTAL BILIRUBIN 0.4 mg/dL (0.2-1.0); TOTAL PROTEIN 8.1 g/dL (6.4-8.2)
[2022-01-29 16:09] LABS: % BANDS 11 % (0-9); % BASOS 1 % (0-3); % LYMPHS 10 % (24-48); % METAS 1 % (0-0); % MONOS 2 % (0-10); % MYELOS 4 % (0-0); % SEGS 71 % (35-66); PLT ESTIMATE ADEQUATE (ADEQUATE)
--- NOTE | 2022-01-29 16:09 | PHYS DOC ---
Past Medical History Past Medical History: A-Fib, COPD, Diabetes-Type II, Hypertension Additional Past Medical Histor: NEUROPATHY;RLS,SIRS,RESP FAILURE,ARRHYTHMIA,COVID-DECEMBER 2020 Past Surgical History: Hysterectomy Additional Past Surgical Histo: unknown Smoking Status: Never Smoker Alcohol Use: None Drug Use: None General Adult EDM: Chief Complaint: HYPERGLYCEMIA HPI: HPI: Patient is a 46 year old female with history of A. fib, diabetes type 2, hypertension, COPD, presenting to the ED today to be evaluated for hyperglycemia. Patient states this afternoon she took her blood sugar and the machine read high. She initially had stated she used her insulin at 2 AM and then later on stated she has not used insulin for over 2 months. She has no explanation why. Reports poor appetite. Review of Systems: Review of Systems: Constitutional: Denies fever or chills. [] Eyes: Denies change in visual acuity. [] HENT: Denies nasal congestion or sore throat. [] Respiratory: Denies cough or shortness of breath. [] Cardiovascular: Denies chest pain or edema. [] GI: Denies abdominal pain, nausea, vomiting, bloody stools or diarrhea. [] : Denies dysuria. [] Musculoskeletal: Denies back pain or joint pain. [] Integument: Denies rash. [] Neurologic: Denies headache, focal weakness or sensory changes. [] Endocrine: Reports hyperglycemia Lymphatic: Denies swollen glands. [] Psychiatric: Denies depression or anxiety. [] Heart Score: C/O Chest Pain: N/A Risk Factors: Risk Factors: DM, Current or recent (<one month) smoker, HTN, HLP, family history of CAD, obesity. Risk Scores: Score 0 - 3: 2.5% MACE over next 6 weeks - Discharge Home Score 4 - 6: 20.3% MACE over next 6 weeks - Admit for Clinical Observation Score 7 - 10: 72.7% MACE over next 6 weeks - Early Invasive Strategies Current Medications: Current Medications Medications (Trade) Dose Ordered Sig/Mo Start Time Stop Time Status Last Admin Dose Admin Sodium Chloride 1,000 ml @ 1,000 mls/hr 1X ONCE 01/29/22 15:30 01/29/22 16:29 01/29/22 15:40 1,000 MLS/HR Allergies: Allergies: Allergies Coded Allergies Type Severity Reaction Last Updated Verified carbidopa Allergy Intermediate 10/05/21 Yes Physical Exam: PE: Constitutional: Well developed, well nourished, no acute distress, non-toxic appearance. [] HENT: Normocephalic, atraumatic, bilateral external ears normal, oropharynx moist, no oral exudates, nose normal. [] Eyes: PERRLA, EOMI, conjunctiva normal, no discharge. [] Neck: Normal range of motion, no tenderness, supple, no stridor. [] Cardiovascular:Heart rate regular rhythm, no murmur [] Lungs & Thorax: Bilateral breath sounds clear to auscultation [] Abdomen: Bowel sounds normal, soft, no tenderness, no masses, no pulsatile masses. [] Skin: Warm, dry, no erythema, no rash. [] Back: No tenderness, no CVA tenderness. [] Extremities: No tenderness, no cyanosis, no clubbing, ROM intact, no edema. [] Neurologic: Alert and oriented X 3, normal motor function, normal sensory function, no focal deficits noted. [] Psychologic: Affect normal, judgement normal, mood normal. [] Current Patient Data: Labs: Laboratory Tests Test 01/29/22 15:28 White Blood Count 12.2 x10^3/uL (4.0-11.0) H Red Blood Count 4.15 x10^6/uL (3.50-5.40) Hemoglobin 10.9 g/dL (12.0-15.5) L Hematocrit 36.3 % (36.0-47.0) Mean Corpuscular Volume 87 fL (79-100) Mean Corpuscular Hemoglobin 26 pg (25-35) Mean Corpuscular Hemoglobin Concent 30 g/dL (31-37) L Red Cell Distribution Width 15.2 % (11.5-14.5) H Platelet Count 330 x10^3/uL (140-400) Neutrophils (%) (Auto) 84 % (31-73) H Lymphocytes (%) (Auto) 10 % (24-48) L Monocytes (%) (Auto) 5 % (0-9) Eosinophils (%) (Auto) 1 % (0-3) Basophils (%) (Auto) 1 % (0-3) Neutrophils # (Auto) 10.3 x10^3/uL (1.8-7.7) H Lymphocytes # (Auto) 1.2 x10^3/uL (1.0-4.8) Monocytes # (Auto) 0.6 x10^3/uL (0.0-1.1) Eosinophils # (Auto) 0.1 x10^3/uL (0.0-0.7) Basophils # (Auto) 0.1 x10^3/uL (0.0-0.2) Platelet Estimate Pending Acetone Level Neg (NEG) Laboratory Tests 01/29/22 15:28 Vital Signs: Vital Signs Date Time Temp Pulse Resp B/P (MAP) Pulse Ox O2 Delivery O2 Flow Rate FiO2 01/29/22 15:37 98.5 92 18 160/75 (103) 93 Room Air 98.5 EKG: EKG: [] Radiology/Procedures: Radiology/Procedures: [] Course & Med Decision Making: Course & Med Decision Making Pertinent Labs and Imaging studies reviewed. (See chart for details) This a 46-year-old female patient well-known to this ED presenting today complaining of hyperglycemia. Patient reports not using her insulin for the last 2 months CBC with a WBC of 11.2, CMP with glucose of 1161, anion gap is normal. CO2 is normal. Creatinine 2.0, BUN 27. Patient was started on IV fluids, Dr. Jarrett ordered insulin. Spoke to Dr. Jarrett who accepted patient for admission Dragon Disclaimer: Parminder Disclaimer: This electronic medical record was generated, in whole or in part, using a voice recognition dictation system. Departure Departure Impression: Primary Impression: Hyperosmolar hyperglycemic state (HHS) Additional Impression: ARF (acute renal failure) Qualified Codes: N17.9 - Acute kidney failure, unspecified Disposition: ADMITTED INPATIENT Condition: STABLE Referrals: JANEEN SEALS APRN (PCP) COLEMAN TIERNEY APRN January 29, 2022 16:09
[2022-01-29] MEDS ORDERED: ACETAMINOPHEN 325 MG TABLET. PO PRN ×2 (16:30→17:00)
[2022-01-29] MEDS ORDERED: ONDANSETRON PF 4 MG/2 ML VIAL. IVP PRN ×2 (16:30→17:00)
[2022-01-29] MEDS ORDERED: INSULIN REGULAR 100 UNIT/ML 3ML VIAL. IV ONE (16:30)
[2022-01-29] MEDS ORDERED: DEXTROSE 50% 25 GM / 50ML DISP.SYRIN. IV PRN (16:30)
--- NOTE | 2022-01-29 16:31 | PDOC1 ---
History and Physical Date of Admission Date of Admission DATE: 01/29/22 TIME: 16:22 Identification/Chief Complaint Chief Complaint High blood sugar Source Source: Patient History of Present Illness History of Present Illness Ms Banegas is a 46 yo F w/ PMHx diabetes type 2, history of clostridium difficile, history of MRSA, peripheral neuropathy, atrial fibrillation on warfarin therapy, coronary artery disease, hypertension, COPD, obesity, GERD, history of cervical cancer, depression, anxiety, anemia, and long-standing compliance difficulties/non-compliance presenting via EMS from home for elevated blood glucose. She has had tremors, weakness and glucose readings > 500. She notes significant polydipsia and polyuria over the last week. Per EMS report patient noted she took 50 units of insulin earlier this morning and then told ED staff she has not taken any insulin for over 2 months. When her clothing was removed a pastry fell out of her clothing. When asked about her medications and dosing she knows many of her medications and knows that she has been prescribed 50 units of Lantus twice daily and lispro with sliding scale 3 times daily with meals and notes she has the pens and needles and says her daughter should be looking after her better, she does not elaborate on this. She notes she has had a more depressed mood lately and does not think her [place] is working. No recent travel or sick contacts. Some pain on urination She is not able to definitively confirm if she got vaccinated against COVID-19 but she did have COVID 19 in December 2020. She also noted to ED staff for recent hospitalization at [facility] for hyperglycemia. Labs with WBC 12.2, Hb 10.9, platelets 330, NA 118, K4.2, BUN 27, CR 2, glucose 1161, calcium 8.6, bilirubin 0.4, AST 11, ALT 13, alkaline phosphatase 212, albumin 2.6, acetone negative Given aggressive IVF, IV insulin. Admitted for further care. Past Medical History Cardiovascular: AFIB, HTN Pulmonary: COPD CENTRAL NERVOUS SYSTEM: Periperal neuropathy GI: Constipation, GERD Heme/Onc: Anemia NOS, Cancer Psych: Anxiety, Depression Musculoskeletal: low back pain, Osteoarthritis Rheumatologic: Other Infectious disease: Other Renal/: Other Endocrine: Diabetes Past Surgical History Past Surgical History: , Hysterectomy Family History Family History: No Significant Social History Smoke: No ALCOHOL: none Drugs: None Current Medications Current Medications Current Medications Sodium Chloride 1,000 ml @ 1,000 mls/hr 1X ONCE IV Last administered on 01/29/22at 15:40; Start 01/29/22 at 15:30; Stop 01/29/22 at 16:29 Sodium Chloride 1,000 ml @ 1,000 mls/hr 1X ONCE IV Last administered on 01/29/22at 15:40; Start 01/29/22 at 15:30; Stop 01/29/22 at 16:29 Active Scripts Active Lantus Solostar (Insulin Glargine,Hum.rec.anlog) 100 Unit/1 Ml Insuln.pen 50 Unit SQ BID Augmentin 500-125 Tablet (Amoxicillin/Potassium Clav) 1 Each Tablet 1 Tab PO BID 7 Days Nyamyc (Nystatin) 15 Gm Powder 1 Vianney TP BID 7 Days Doxycycline Hyclate 100 Mg Tablet 100 Mg PO BID 7 Days Admelog (Insulin Lispro) 100 Unit/1 Ml Vial 0 Units SQ TIDWMEALS 30 Days Lantus (Insulin Glargine,Hum.rec.anlog) 100 Unit/1 Ml Vial 70 Unit SQ BID 30 Days Mag-Al Plus Xs Suspension (Mag Hydrox/Al Hydrox/Simeth) 30 Ml Oral.susp 30 Ml PO PRN Q3HRS PRN 14 Days Calcium Carbonate 200 Mg Tab.chew 500 Mg PO PRN Q3HRS PRN 30 Days Benzonatate 100 Mg Capsule 100 Mg PO [id number] 30 Days Acetaminophen 325 Mg Tablet 650 Mg PO PRN Q6HRS PRN 30 Days Culturelle (Lactobacillus Rhamnosus Gg) 1 Each Cap.sprink 1 Cap PO BID 30 Days Polyethylene Glycol 3350 17 Gm Powd.pack 17 Gm PO DAILY 14 Days Zofran Odt (Ondansetron) 4 Mg Tab.rapdis 1 Tab SL Q8HRS PRN Diltiazem 24Hr Cd (Diltiazem HCl) 180 Mg Cap.er.24h 180 Mg PO DAILY Reported Fenofibrate (Fenofibrate Nanocrystallized) 145 Mg Tablet 1 Tab PO DAILY Tizanidine Hcl 4 Mg Tablet 2 Tab PO QHS Oxybutynin Chloride Er (Oxybutynin Chloride) 10 Mg Tab.er.24 1 Tab PO DAILY Seroquel (Quetiapine Fumarate) 50 Mg Tablet 1 Tab PO QHS Metoprolol Tartrate 25 Mg Tablet 1 Tab PO BID Cymbalta (Duloxetine Hcl) 60 Mg Capsule.dr 1 Cap PO DAILY Klonopin (Clonazepam) 0.5 Mg Tablet 0.5 Mg PO PRN TID PRN Eliquis (Apixaban) 5 Mg Tablet 5 Mg PO BID Fluticasone Propionate Nasal Whiteface (Fluticasone Propionate) 16 Gm Whiteface.susp 2 Spr MANDIE BID Clonidine Hcl 0.1 Mg Tablet 1 Tab PO BID Topiramate 25 Mg Tablet 1 Tab PO BID Humalog (Insulin Lispro) 100 Unit/1 Ml Cartridge 55 Unit SQ TIDWMEALS Trazodone Hcl 50 Mg Tablet 50 Mg PO HS Aspirin Ec (Aspirin) 81 Mg Tablet.dr 81 Mg PO DAILY Gabapentin 800 Mg Tablet 800 Mg PO QID Omeprazole 40 Mg Capsule.dr 40 Mg PO DAILY Iron (Ferrous Sulfate) 325 Mg Tablet 325 Mg PO DAILY Albuterol Sulfate Conc Neb Soln (Albuterol Sulfate) 2.5 Mg/0.5 Ml Vial.neb 2.5 Mg NEB Q4HRS PRN Symbicort 160-4.5 Mcg Inhaler (Budesonide/Formoterol Fumarate) 10.2 Gm Hfa. aer.ad 2 Puff IH BID Allergies Allergies: Coded Allergies: carbidopa (Verified Allergy, Intermediate, 10/05/21) ROS General: YES: Fatigue, Malaise, Appetite; No: Chills, Night Sweats, Other PSYCHOLOGICAL ROS: YES: Anxiety, Depression, Hostility, Irritablity, Mood Swings, Obsessive thoughts; No: Behavioral Disorder, Concentration difficultie, Decreased libido, Disorientation, Hallucinations, Memory difficulties, Physical abuse, Sexual abuse, Sleep disturbances, Suicidal ideation, Other Eyes: No Blurry vision, No Decreased vision, No Double vision, No Dry eyes, No Excessive tearing, No Eye Pain, No Itchy Eyes, No Loss of vision, No Photophobia, No Scotomata, No Uses contacts, No Uses glasses, No Other HEENT: No: Heacaches, Visual Changes, Hearing change, Nasal congestion, Nasal discharge, Oral lesions, Sinus pain, Sore Throat, Epistaxis, Sneezing, Snoring, Tinnitus, Vertigo, Vocal changes, Other ALLERGY AND IMMUNOLOGY: YES: Nasal Congestion; No: Hives, Insect Bite Sensitivity, Itchy/Watery Eyes, Post Nasal Drip, Se asonal Allergies, Other Hematological and Lymphatic: No: Bleeding Problems, Blood Clots, Blood Transfusions, Brusing, Night Sweats, Pallor, Swollen Lymph Nodes, Other ENDOCRINE: No: Breast Changes, Galactorrhea, Hair Pattern Changes, Hot Flashes, Malaise/lethargy, Mood Swings, Palpitations, Polydipsia/polyuria, Skin Changes, Temperature Intolerance, Unexpected Weight Changes, Other Breast: No New/Changing Breast Lumps, No Nipple changes, No Nipple discharge, No Other Respiratory: No: Cough, Hemoptysis, Orthopnea, Pleuritic Pain, Shortness of breath, SOB with excertion, Sputum Changes, Stridor, Tachypnea, Wheezing, Other Cardiovascular: No Chest Pain, No Palpitations, No Orthopnea, No Paroxysmal Noc. Dyspnea, No Edema, No Lt Headedness, No Other Gastrointestinal: Yes Nausea, Yes Abdominal Pain; No Vomiting, No Diarrhea, No Constipation, No Melena, No Hematochezia, No Other Genitourinary: YES Dysuria, YES Frequency, YES Urgency, YES Pain; No Incontinence, No Hematuria, No Retention, No Discharge, No Flank Pain, No Other, No , No , No , No , No , No , No Musculoskeletal: No Gait Disturbance, No Joint Pain, No Joint Stiffness, No Joint Swelling, No Muscle Pain, No Muscular Weakness, No Pain In:, No Swelling In:, No Other Neurological: No Behavorial Changes, No Bowel/Bladder ControlChng, No Confusion, No Dizziness, No Gait Disturbance, No Headaches, No Impaired Coord/balance, No Memory Loss, No Numbness/Tingling, No Seizures, No Speech Problems, No Tremors, No Visual Changes, No Weakness, No Other Skin: No Dry Skin, No Eczema, No Hair Changes, No Lumps, No Mole Changes, No Mottling, No Nail Changes, No Pruritus, No Rash, No Skin Lesion Changes, No Other, No Acne Physical Exam General: Alert, Oriented X3, Cooperative, mild distress HEENT: Atraumatic, PERRLA, EOMI, Mucous membr. moist/pink Lungs: Clear to auscultation, Normal air movement Heart: S1S2, RRR, no thrills, no rubs, no gallops, no murmurs Abdomen: Normal bowel sounds, Soft, No tenderness, No hepatosplenomegaly, No masses Extremities: No clubbing, No cyanosis, No edema, Normal pulses, No tenderness/swelling Skin: No rashes, No breakdown, No significant lesion Neuro: Normal gait, Normal speech, Strength at 5/5 X4 ext, Normal tone, Sensation intact, Cranial nerves 3-12 NL, Reflexes 2+ Psych/Mental Status: Mental status NL, Mood NL Vitals Vitals Vital Signs Date Time Temp Pulse Resp B/P (MAP) Pulse Ox O2 Delivery O2 Flow Rate FiO2 01/29/22 15:37 98.5 92 18 160/75 (103) 93 Room Air 98.5 Labs Labs Laboratory Tests Test 01/29/22 15:28 White Blood Count 12.2 x10^3/uL (4.0-11.0) Red Blood Count 4.15 x10^6/uL (3.50-5.40) Hemoglobin 10.9 g/dL (12.0-15.5) Hematocrit 36.3 % (36.0-47.0) Mean Corpuscular Volume 87 fL (79-100) Mean Corpuscular Hemoglobin 26 pg (25-35) Mean Corpuscular Hemoglobin Concent 30 g/dL (31-37) Red Cell Distribution Width 15.2 % (11.5-14.5) Platelet Count 330 x10^3/uL (140-400) Neutrophils (%) (Auto) 84 % (31-73) Lymphocytes (%) (Auto) 10 % (24-48) Monocytes (%) (Auto) 5 % (0-9) Eosinophils (%) (Auto) 1 % (0-3) Basophils (%) (Auto) 1 % (0-3) Neutrophils # (Auto) 10.3 x10^3/uL (1.8-7.7) Lymphocytes # (Auto) 1.2 x10^3/uL (1.0-4.8) Monocytes # (Auto) 0.6 x10^3/uL (0.0-1.1) Eosinophils # (Auto) 0.1 x10^3/uL (0.0-0.7) Basophils # (Auto) 0.1 x10^3/uL (0.0-0.2) Segmented Neutrophils % 71 % (35-66) Band Neutrophils % 11 % (0-9) Lymphocytes % 10 % (24-48) Monocytes % 2 % (0-10) Basophils % 1 % (0-3) Metamyelocytes % 1 % (0-0) Myelocytes % 4 % (0-0) Platelet Estimate Adequate (ADEQUATE) Sodium Level 118 mmol/L (136-145) Potassium Level 4.2 mmol/L (3.5-5.1) Chloride Level 83 mmol/L (98-107) Carbon Dioxide Level 25 mmol/L (21-32) Anion Gap 10 (6-14) Blood Urea Nitrogen 27 mg/dL (7-20) Creatinine 2.0 mg/dL (0.6-1.0) Estimated GFR (Cockcroft-Gault) 26.6 BUN/Creatinine Ratio 14 (6-20) Glucose Level 1161 mg/dL (70-99) Calcium Level 8.6 mg/dL (8.5-10.1) Total Bilirubin 0.4 mg/dL (0.2-1.0) Aspartate Amino Transf (AST/SGOT) 11 U/L (15-37) Alanine Aminotransferase (ALT/SGPT) 13 U/L (14-59) Alkaline Phosphatase 212 U/L (46-116) Total Protein 8.1 g/dL (6.4-8.2) Albumin 2.6 g/dL (3.4-5.0) Albumin/Globulin Ratio 0.5 (1.0-1.7) Acetone Level Neg (NEG) Laboratory Tests Test 01/29/22 15:28 White Blood Count 12.2 x10^3/uL (4.0-11.0) Red Blood Count 4.15 x10^6/uL (3.50-5.40) Hemoglobin 10.9 g/dL (12.0-15.5) Hematocrit 36.3 % (36.0-47.0) Mean Corpuscular Volume 87 fL (79-100) Mean Corpuscular Hemoglobin 26 pg (25-35) Mean Corpuscular Hemoglobin Concent 30 g/dL (31-37) Red Cell Distribution Width 15.2 % (11.5-14.5) Platelet Count 330 x10^3/uL (140-400) Neutrophils (%) (Auto) 84 % (31-73) Lymphocytes (%) (Auto) 10 % (24-48) Monocytes (%) (Auto) 5 % (0-9) Eosinophils (%) (Auto) 1 % (0-3) Basophils (%) (Auto) 1 % (0-3) Neutrophils # (Auto) 10.3 x10^3/uL (1.8-7.7) Lymphocytes # (Auto) 1.2 x10^3/uL (1.0-4.8) Monocytes # (Auto) 0.6 x10^3/uL (0.0-1.1) Eosinophils # (Auto) 0.1 x10^3/uL (0.0-0.7) Basophils # (Auto) 0.1 x10^3/uL (0.0-0.2) Segmented Neutrophils % 71 % (35-66) Band Neutrophils % 11 % (0-9) Lymphocytes % 10 % (24-48) Monocytes % 2 % (0-10) Basophils % 1 % (0-3) Metamyelocytes % 1 % (0-0) Myelocytes % 4 % (0-0) Platelet Estimate Adequate (ADEQUATE) Sodium Level 118 mmol/L (136-145) Potassium Level 4.2 mmol/L (3.5-5.1) Chloride Level 83 mmol/L (98-107) Carbon Dioxide Level 25 mmol/L (21-32) Anion Gap 10 (6-14) Blood Urea Nitrogen 27 mg/dL (7-20) Creatinine 2.0 mg/dL (0.6-1.0) Estimated GFR (Cockcroft-Gault) 26.6 BUN/Creatinine Ratio 14 (6-20) Glucose Level 1161 mg/dL (70-99) Calcium Level 8.6 mg/dL (8.5-10.1) Total Bilirubin 0.4 mg/dL (0.2-1.0) Aspartate Amino Transf (AST/SGOT) 11 U/L (15-37) Alanine Aminotransferase (ALT/SGPT) 13 U/L (14-59) Alkaline Phosphatase 212 U/L (46-116) Total Protein 8.1 g/dL (6.4-8.2) Albumin 2.6 g/dL (3.4-5.0) Albumin/Globulin Ratio 0.5 (1.0-1.7) Acetone Level Neg (NEG) VTE Prophylaxis Ordered VTE Prophylaxis Devices: Yes VTE Pharmacological Prophylaxi: Yes Assessment/Plan Assessment/Plan A/P: HHNKS - IV insulin, IV fluids, sliding scale, basal insulin Sepsis - due to UTI, empiric rocephin BIGG - vasomotor nephropathy from above. Will hydrate, monitor renal function Paroxysmal A-Fib - currently sinus Anxiety with depression - reconcile home meds, she thinks bogdan is not working Asthma with COPD - nebulizers Diabetes-Type II - insulin as above High Cholesterol - statin Hypertension - cont home meds Anemia - likely of chronic disease, check iron Non-compliance/compliance difficulties -counseled on importance of taking insu janiya. It seems she takes most of her other meds most the time she tells me is her daughter's responsibility to take care of her. She then notes that her daughter frequently has to watch up to 10 children. FEN - ADA diet PPX - heparin FULL CODE Dispo - inpatient Justifications for Admission Other Justification Acute respiratory failure with hypoxia, UTI, COVID-19 DUNG MEREDITH MD January 29, 2022 16:31
[2022-01-29 16:49] LABS: BACTERIA,URINE MODERATE /HPF (0-FEW)
[2022-01-29 16:50] LABS: RBC,URINE OCC /HPF (0-2)
--- NOTE | 2022-01-29 16:54 | EKG ---
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
[2022-01-29] MEDS ORDERED: MORPHINE SULFATE 2 MG/ML INJ. IVP PRN (17:00)
[2022-01-29 17:42] LABS: CALCIUM 7.7 mg/dL (8.5-10.1); CREATININE 1.6 mg/dL (0.6-1.0); GFR 34.4; POTASSIUM 3.7 mmol/L (3.5-5.1)
[2022-01-29] MEDS ORDERED: SODIUM PHOSPHATE 10 MMOL in IV NORMAL SALINE 100ML 250 ML IV PRN (17:45)
[2022-01-29] MEDS ORDERED: clonazePAM 0.5 MG TABLET PO PRN (17:45)
[2022-01-29] MEDS ORDERED: POTASSIUM CHLORIDE 10MEQ 100 ML IV PRN ×3 (17:45)
[2022-01-29] MEDS ORDERED: SODIUM PHOSPHATE 20 MMOL in IV NORMAL SALINE 250ML 250 ML IV PRN (17:45)
[2022-01-29] MEDS ORDERED: SODIUM PHOSPHATE 40 MMOL in IV NORMAL SALINE 500ML BAG 500 ML IV PRN (17:45)
[2022-01-29] MEDS ORDERED: ALBUTEROL SULFATE 2.5 MG/3 ML NEBU. NEB PRN (18:00)
[2022-01-29] MEDS: INSULIN REGULAR VIAL 100 UNIT in IV NORMAL SALINE 100ML 100 ML IV PRN ×2 (18:04→20:59)
[2022-01-29] MEDS ORDERED: PANT40TA77 PO (20:06)
[2022-01-29] MEDS ORDERED: INSU100V37 SQ (20:06)
[2022-01-29 20:12] LABS: ALBUMIN 2.2 g/dL (3.4-5.0); ALBUMIN/GLOBULIN RATIO 0.4 (1.0-1.7); ALK PHOS 178 U/L (46-116); ALT (SGPT) 7 U/L (14-59); ANION GAP 13 (6-14); AST (SGOT) 10 U/L (15-37); BLOOD UREA NITROGEN 22 mg/dL (7-20); BUN/CREATININE RATIO 15 (6-20); CALCIUM 8.4 mg/dL (8.5-10.1); CARBON DIOXIDE 21 mmol/L (21-32); CHLORIDE 98 mmol/L (98-107); CREATININE 1.5 mg/dL (0.6-1.0); GFR 37.1; POTASSIUM 3.5 mmol/L (3.5-5.1); SODIUM 132 mmol/L (136-145); TOTAL BILIRUBIN 0.2 mg/dL (0.2-1.0); TOTAL PROTEIN 7.1 g/dL (6.4-8.2)
[2022-01-29] MEDS: FLUTICASONE 50MCG/NASAL SPRAY 16GM BOTTLE. NS SCH (21:00)
[2022-01-29] MEDS: POTASSIUM CHLORIDE 10MEQ 100 ML IV SCH ×3 (21:12→23:43)
[2022-01-29] MEDS: cefTRIAXone IV Push 1 GM VIAL. IVP SCH (21:13)
[2022-01-29] MEDS: traZODone 50 MG TABLET. PO SCH (21:16)
[2022-01-29] MEDS: APIXABAN 5 MG TABLET. PO SCH (21:16)
[2022-01-29] MEDS: GABAPENTIN 400 MG CAPSULE. PO SCH (21:16)
[2022-01-29] MEDS: QUEtiapine 100 MG TABLET. PO SCH (21:16)
[2022-01-29] MEDS: METOPROLOL TART IMMED RELEASE 25 MG TABLET. PO SCH (21:17)
[2022-01-29] MEDS: LACTOBACILLUS RHAMNOSUS GG 1 CAPSULE. PO SCH (21:17)
[2022-01-29] MEDS: TOPIRAMATE 25 MG TABLET. PO SCH (21:18)
[2022-01-29] MEDS: IV NORMAL SALINE 1000ML BAG 1,000 ML IV SCH ×2 (22:00→22:01)
[2022-01-29] MEDS: IV DEXTROSE 5% - 0.9 % NACL 1,000 ML IV SCH (23:15)
[2022-01-30] VITALS (10 sets, daily range): BP systolic 121–174; BP diastolic 60–78
[2022-01-30] MEDS: POTASSIUM CHLORIDE 10MEQ 100 ML IV SCH
[2022-01-30 01:26] LABS: ALBUMIN/GLOBULIN RATIO 0.4 (1.0-1.7); CALCIUM 8.1 mg/dL (8.5-10.1); CREATININE 0.9 mg/dL (0.6-1.0); GFR 66.8; MAGNESIUM 1.7 mg/dL (1.8-2.4); TOTAL BILIRUBIN 0.2 mg/dL (0.2-1.0); TOTAL PROTEIN 6.5 g/dL (6.4-8.2)
[2022-01-30] MEDS: IV DEXTROSE 5% - 0.9 % NACL 1,000 ML IV SCH (03:15)
[2022-01-30 05:51] LABS: BASO # 0.1 x10^3/uL (0.0-0.2); BASO % 0 % (0-3); EOS # 0.2 x10^3/uL (0.0-0.7); EOS % 1 % (0-3); HEMATOCRIT 29.9 % (36.0-47.0); HEMOGLOBIN 9.6 g/dL (12.0-15.5); LYMPH % 16 % (24-48); MEAN CORPUSCULAR HEMOGLOBIN 25 pg (25-35); MEAN CORPUSCULAR HGB CONC 32 g/dL (31-37); MEAN CORPUSCULAR VOLUME 80 fL (79-100); MONO # 0.7 x10^3/uL (0.0-1.1); MONO % 5 % (0-9); NEUT # 9.7 x10^3/uL (1.8-7.7); NEUT % 77 % (31-73); PLATELET COUNT 326 x10^3/uL (140-400); RED BLOOD COUNT 3.77 x10^6/uL (3.50-5.40); RED CELL DISTRIBUTION WIDTH 14.9 % (11.5-14.5); WHITE BLOOD COUNT 12.6 x10^3/uL (4.0-11.0)
[2022-01-30 06:12] LABS: ALBUMIN 1.9 g/dL (3.4-5.0); ALBUMIN/GLOBULIN RATIO 0.4 (1.0-1.7); CALCIUM 8.1 mg/dL (8.5-10.1); CREATININE 0.8 mg/dL (0.6-1.0); GFR 76.6; POTASSIUM 3.4 mmol/L (3.5-5.1); TOTAL BILIRUBIN 0.2 mg/dL (0.2-1.0); TOTAL PROTEIN 6.5 g/dL (6.4-8.2)
[2022-01-30] MEDS ORDERED: DEXTROSE 50% 25 GM / 50ML DISP.SYRIN. IV PRN (07:45)
[2022-01-30] MEDS ORDERED: INSULIN LISPRO 300 UNITS/3 ML VIAL. SQ SCH (08:00)
[2022-01-30] MEDS: LACTOBACILLUS RHAMNOSUS GG 1 CAPSULE. PO SCH ×2 (08:37→20:35)
[2022-01-30] MEDS: GABAPENTIN 400 MG CAPSULE. PO SCH ×4 (08:37→20:35)
[2022-01-30] MEDS: ASPIRIN ENTERIC COATED 81 MG TABLET.DR. PO SCH (08:37)
[2022-01-30] MEDS: APIXABAN 5 MG TABLET. PO SCH ×2 (08:38→21:00)
[2022-01-30] MEDS: METOPROLOL TART IMMED RELEASE 25 MG TABLET. PO SCH ×2 (08:38→20:36)
[2022-01-30] MEDS: DULoxetine HCL 30 MG CAPSULE.DR PO SCH (08:38)
[2022-01-30] MEDS: TOPIRAMATE 25 MG TABLET. PO SCH ×2 (08:38→20:36)
[2022-01-30] MEDS: FENOFIBRATE,MICRONIZED 134 MG CAPSULE PO SCH (08:38)
[2022-01-30] MEDS: PANTOPRAZOLE 40 MG TABLET.DR. PO SCH (08:38)
[2022-01-30] MEDS: FLUTICASONE 50MCG/NASAL SPRAY 16GM BOTTLE. NS SCH ×2 (08:39→20:34)
[2022-01-30] MEDS: POLYETHYLENE GLYCOL 3350 17 GM PACKET. PO SCH (08:40)
[2022-01-30] MEDS ORDERED: MAGNESIUM SULFATE 4GM 100 ML IV SCH (09:00)
--- NOTE | 2022-01-30 11:02 | NUR ---
PT Request for orders: Pt screen complete and pt states is unsteady when up walking. Recommend PT evaluation and treatment. Please order PT eval and treat if you agree. Thanks, Mario White PT
--- NOTE | 2022-01-30 11:27 | PDOC ---
[employer] PROGRESS NOTE Date of Service DOS: DATE: 01/30/22 TIME: 11:25 Chief Complaint Chief Complaint Hyperglycemic hyperosmolar state without ketosis Sepsis BIGG Paroxysmal A. fib Anxiety Asthma Diabetes Hyperlipidemia Hypertension Anemia Noncompliance History of Present Illness History of Present Illness 01/30/2022 Patient seen and examined in the ICU She is doing much better this morning Discussed with RN Discussed with case management Will probably transfer out of the ICU today and hopefully get her home tomorrow Vitals/I&O Vitals/I&O: Vital Signs Date Time Temp Pulse Resp B/P (MAP) Pulse Ox O2 Delivery O2 Flow Rate FiO2 01/30/22 11:20 102.1 93 18 148/75 (99) Room Air 102.1 01/30/22 07:34 3.0 01/29/22 18:15 100 I & O 01/29/22 01/29/22 01/30/22 15:00 23:00 07:00 Intake Total 100 ml 1878 ml Output Total 500 ml 400 ml Balance -400 ml 1478 ml Physical Exam General: Alert, Oriented X3, Cooperative, mild distress Lungs: Crackles Abdomen: Normal bowel sounds, Soft, No tenderness, No hepatosplenomegaly, No masses Extremities: No clubbing, No cyanosis, No edema, Normal pulses, No tenderness/swelling Skin: No rashes, No breakdown, No significant lesion Labs Labs: Laboratory Tests Test 01/29/22 15:28 01/29/22 15:53 01/29/22 17:15 01/29/22 19:20 White Blood Count 12.2 x10^3/uL (4.0-11.0) Red Blood Count 4.15 x10^6/uL (3.50-5.40) Hemoglobin 10.9 g/dL (12.0-15.5) Hematocrit 36.3 % (36.0-47.0) Mean Corpuscular Volume 87 fL (79-100) Mean Corpuscular Hemoglobin 26 pg (25-35) Mean Corpuscular Hemoglobin Concent 30 g/dL (31-37) Red Cell Distribution Width 15.2 % (11.5-14.5) Platelet Count 330 x10^3/uL (140-400) Neutrophils (%) (Auto) 84 % (31-73) Lymphocytes (%) (Auto) 10 % (24-48) Monocytes (%) (Auto) 5 % (0-9) Eosinophils (%) (Auto) 1 % (0-3) Basophils (%) (Auto) 1 % (0-3) Neutrophils # (Auto) 10.3 x10^3/uL (1.8-7.7) Lymphocytes # (Auto) 1.2 x10^3/uL (1.0-4.8) Monocytes # (Auto) 0.6 x10^3/uL (0.0-1.1) Eosinophils # (Auto) 0.1 x10^3/uL (0.0-0.7) Basophils # (Auto) 0.1 x10^3/uL (0.0-0.2) Segmented Neutrophils % 71 % (35-66) Band Neutrophils % 11 % (0-9) Lymphocytes % 10 % (24-48) Monocytes % 2 % (0-10) Basophils % 1 % (0-3) Metamyelocytes % 1 % (0-0) Myelocytes % 4 % (0-0) Platelet Estimate Adequate (ADEQUATE) Sodium Level 118 mmol/L (136-145) 126 mmol/L (136-145) 132 mmol/L (136-145) Potassium Level 4.2 mmol/L (3.5-5.1) 3.7 mmol/L (3.5-5.1) 3.5 mmol/L (3.5-5.1) Chloride Level 83 mmol/L (98-107) 93 mmol/L (98-107) 98 mmol/L (98-107) Carbon Dioxide Level 25 mmol/L (21-32) 24 mmol/L (21-32) 21 mmol/L (21-32) Anion Gap 10 (6-14) 9 (6-14) 13 (6-14) Blood Urea Nitrogen 27 mg/dL (7-20) 25 mg/dL (7-20) 22 mg/dL (7-20) Creatinine 2.0 mg/dL (0.6-1.0) 1.6 mg/dL (0.6-1.0) 1.5 mg/dL (0.6-1.0) Estimated GFR (Cockcroft-Gault) 26.6 34.4 37.1 BUN/Creatinine Ratio 14 (6-20) 15 (6-20) Glucose Level 1161 mg/dL (70-99) 1019 mg/dL (70-99) mg/dL (70-99) Calcium Level 8.6 mg/dL (8.5-10.1) 7.7 mg/dL (8.5-10.1) 8.4 mg/dL (8.5-10.1) Total Bilirubin 0.4 mg/dL (0.2-1.0) 0.2 mg/dL (0.2-1.0) Aspartate Amino Transf (AST/SGOT) 11 U/L (15-37) 10 U/L (15-37) Alanine Aminotransferase (ALT/SGPT) 13 U/L (14-59) 7 U/L (14-59) Alkaline Phosphatase 212 U/L (46-116) 178 U/L (46-116) Total Protein 8.1 g/dL (6.4-8.2) 7.1 g/dL (6.4-8.2) Albumin 2.6 g/dL (3.4-5.0) 2.2 g/dL (3.4-5.0) Albumin/Globulin Ratio 0.5 (1.0-1.7) 0.4 (1.0-1.7) Acetone Level Neg (NEG) Urine Collection Type Unknown Urine Color (Auto) Colorless Urine Turbidity Clear Urine pH (Auto) 5.0 (<5.0-8.0) Urine Specific [place] 1.025 (1.000-1.030) Urine Protein (Auto) Negative mg/dL (Negative) Urine Glucose (Auto)(UA) >=1000 mg/dL (Negative) Urine Ketones (Auto) Negative mg/dL (Negative) Urine Blood (Auto) Small (Negative) Urine Nitrite Positive (Negative) Urine Bilirubin (Auto) Negative (Negative) Urine Urobilinogen (Auto) Normal mg/dL (Normal) Urine Leukocyte Esterase (Auto) Moderate (Negative) Urine RBC Occ /HPF (0-2) Urine WBC 11-20 /HPF (0-4) Urine Bacteria Moderate /HPF (0-FEW) Magnesium Level 2.0 mg/dL (1.8-2.4) Test 01/29/22 20:55 01/29/22 21:57 01/29/22 23:01 01/30/22 00:05 Glucose (Fingerstick) 344 mg/dL (70-99) 486 mg/dL (70-99) 168 mg/dL (70-99) 175 mg/dL (70-99) Test 01/30/22 00:59 01/30/22 01:00 01/30/22 02:13 01/30/22 03:21 Glucose (Fingerstick) 223 mg/dL (70-99) 218 mg/dL (70-99) 190 mg/dL (70-99) Sodium Level 139 mmol/L (136-145) Potassium Level 4.0 mmol/L (3.5-5.1) Chloride Level 106 mmol/L (98-107) Carbon Dioxide Level 25 mmol/L (21-32) Anion Gap 8 (6-14) Blood Urea Nitrogen 16 mg/dL (7-20) Creatinine 0.9 mg/dL (0.6-1.0) Estimated GFR (Cockcroft-Gault) 66.8 BUN/Creatinine Ratio 18 (6-20) Glucose Level 198 mg/dL (70-99) Calcium Level 8.1 mg/dL (8.5-10.1) Magnesium Level 1.7 mg/dL (1.8-2.4) Total Bilirubin 0.2 mg/dL (0.2-1.0) Aspartate Amino Transf (AST/SGOT) 9 U/L (15-37) Alanine Aminotransferase (ALT/SGPT) 11 U/L (14-59) Alkaline Phosphatase 145 U/L (46-116) Total Protein 6.5 g/dL (6.4-8.2) Albumin 2.0 g/dL (3.4-5.0) Albumin/Globulin Ratio 0.4 (1.0-1.7) Test 01/30/22 04:31 01/30/22 04:45 01/30/22 05:34 01/30/22 06:28 Glucose (Fingerstick) 167 mg/dL (70-99) 157 mg/dL (70-99) 114 mg/dL (70-99) White Blood Count 12.6 x10^3/uL (4.0-11.0) Red Blood Count 3.77 x10^6/uL (3.50-5.40) Hemoglobin 9.6 g/dL (12.0-15.5) Hematocrit 29.9 % (36.0-47.0) Mean Corpuscular Volume 80 fL (79-100) Mean Corpuscular Hemoglobin 25 pg (25-35) Mean Corpuscular Hemoglobin Concent 32 g/dL (31-37) Red Cell Distribution Width 14.9 % (11.5-14.5) Platelet Count 326 x10^3/uL (140-400) Neutrophils (%) (Auto) 77 % (31-73) Lymphocytes (%) (Auto) 16 % (24-48) Monocytes (%) (Auto) 5 % (0-9) Eosinophils (%) (Auto) 1 % (0-3) Basophils (%) (Auto) 0 % (0-3) Neutrophils # (Auto) 9.7 x10^3/uL (1.8-7.7) Lymphocytes # (Auto) 2.0 x10^3/uL (1.0-4.8) Monocytes # (Auto) 0.7 x10^3/uL (0.0-1.1) Eosinophils # (Auto) 0.2 x10^3/uL (0.0-0.7) Basophils # (Auto) 0.1 x10^3/uL (0.0-0.2) Sodium Level 142 mmol/L (136-145) Potassium Level 3.4 mmol/L (3.5-5.1) Chloride Level 108 mmol/L (98-107) Carbon Dioxide Level 24 mmol/L (21-32) Anion Gap 10 (6-14) Blood Urea Nitrogen 13 mg/dL (7-20) Creatinine 0.8 mg/dL (0.6-1.0) Estimated GFR (Cockcroft-Gault) 76.6 BUN/Creatinine Ratio 16 (6-20) Glucose Level 136 mg/dL (70-99) Calcium Level 8.1 mg/dL (8.5-10.1) Total Bilirubin 0.2 mg/dL (0.2-1.0) Aspartate Amino Transf (AST/SGOT) 11 U/L (15-37) Alanine Aminotransferase (ALT/SGPT) 7 U/L (14-59) Alkaline Phosphatase 148 U/L (46-116) Total Protein 6.5 g/dL (6.4-8.2) Albumin 1.9 g/dL (3.4-5.0) Albumin/Globulin Ratio 0.4 (1.0-1.7) Test 01/30/22 08:28 01/30/22 08:30 Glucose (Fingerstick) 165 mg/dL (70-99) 169 mg/dL (70-99) Assessment and Plan Assessmemt and Plan Problems Medical Problems: (1) ARF (acute renal failure) Status: Acute (2) Hyperosmolar hyperglycemic state (HHS) Status: Acleonardo Will transfer out of ICU later today and hopefully get her home in the morning For now continue the following; Hyperglycemic hyperosmolar nonketotic stateIV insulin, IV fluids, sliding scale, basal insulin Sepsis - due to UTI, empiric rocephin BIGG - vasomotor nephropathy from above. Will hydrate, monitor renal function Paroxysmal A-Fib - currently sinus Anxiety with depression - reconcile home meds, she thinks bogdan is not working Asthma with COPD - nebulizers Diabetes-Type II - insulin as above High Cholesterol - statin Hypertension - cont home meds Anemia - likely of chronic disease, check iron Non-compliance/compliance difficulties -counseled on importance of taking insulin. It seems she takes most of her other meds most the time she tells me is her daughter's responsibility to take care of her. She then notes that her daughter frequently has to watch up to 10 children. We will transfer out of ICU today Continue home meds DVT prophylaxis Full code Hope to discharge tomorrow morning FEN - ADA diet PPX - heparin FULL CODE Dispo - inpatient Comment Review of Relevant I have reviewed the following items emery (where applicable) has been applied. Medications: Current Medications Medications (Trade) Dose Ordered Sig/Mo Route PRN Reason Start Time Stop Time Status Last Admin Dose Admin Sodium Chloride 1,000 ml @ 1,000 mls/hr 1X ONCE IV 01/29/22 15:30 01/29/22 16:29 DC 01/29/22 15:40 Sodium Chloride 1,000 ml @ 1,000 mls/hr 1X ONCE IV 01/29/22 15:30 01/29/22 16:29 DC 01/29/22 15:40 Insulin Human Regular (HumuLIN R VIAL) 10 unit 1X ONCE IV 01/29/22 16:30 01/29/22 16:31 DC 01/29/22 16:39 Acetaminophen (Tylenol) 650 mg PRN Q6HRS PRN PO MILD PAIN / TEMP > 100.3'F 01/29/22 16:30 01/30/22 11:09 Insulin Human Regular 100 unit/ Sodium Chloride 101 ml @ 0 mls/hr CONT PRN IV SEE I/O RECORD 01/29/22 16:30 01/30/22 07:49 DC 01/29/22 20:59 Ceftriaxone Sodium (Rocephin) 1 gm Q24H IVP 01/29/22 19:00 01/29/22 21:13 Sodium Chloride 1,000 ml @ 250 mls/hr Q4H IV 01/29/22 18:00 01/29/22 23:14 DC 01/29/22 22:00 Magnesium Sulfate 100 ml @ 25 mls/hr DAILY IV 01/30/22 09:00 01/30/22 09:57 DC 01/30/22 08:40 Apixaban (Eliquis) 5 mg BID PO 01/29/22 21:00 01/30/22 08:38 Aspirin (Ecotrin) 81 mg DAILY PO 01/30/22 09:00 01/30/22 08:37 Clonazepam (KlonoPIN) 0.5 mg PRN TID PRN PO ANXIETY / AGITATION 01/29/22 17:45 01/29/22 21:16 Diltiazem HCl (Cardizem 24hr Cd) 180 mg DAILY PO 01/30/22 09:00 01/30/22 08:39 Fluticasone Propionate (Flonase) 2 spray BID NS 01/29/22 21:00 01/30/22 08:39 Lactobacillus Rhamnosus (Culturelle) 1 cap BID PO 01/29/22 21:00 01/30/22 08:37 Metoprolol Tartrate (Lopressor) 25 mg BID PO 01/29/22 21:00 01/30/22 08:38 Topiramate (Topamax) 25 mg BID PO 01/29/22 21:00 01/30/22 08:38 Trazodone HCl (Desyrel) 50 mg HS PO 01/29/22 21:00 01/29/22 21:16 Duloxetine HCl (Cymbalta) 60 mg DAILY PO 01/30/22 09:00 01/30/22 08:38 Fenofibrate (Lofibra) 134 mg DAILY PO 01/30/22 09:00 01/30/22 08:38 Gabapentin (Neurontin) 800 mg QID PO 01/29/22 21:00 01/30/22 08:37 Pantoprazole Sodium (Protonix) 40 mg DAILYAC PO 01/30/22 07:30 01/30/22 08:38 Quetiapine Fumarate (SEROquel) 50 mg QHS PO 01/29/22 21:00 01/29/22 21:16 Potassium Chloride/Water 100 ml @ 100 mls/hr Q1H IV 01/29/22 21:00 01/30/22 00:59 DC 01/30/22 00:00 Dextrose/Sodium Chloride 1,000 ml @ 250 mls/hr Q4H IV 01/29/22 23:15 01/30/22 09:57 DC 01/30/22 03:15 Insulin Human Lispro (HumaLOG) 0-7 UNITS TIDWMEALS SQ 01/30/22 08:00 01/30/22 09:49 DC 01/30/22 08:32 Justifications for Admission Other Justification Acute respiratory failure with hypoxia, UTI, COVID-19 MEDHAT CARNES III DO January 30, 2022 11:27
[2022-01-30] MEDS: INSULIN LISPRO 300 UNITS/3 ML VIAL. SQ SCH ×5 (15:14→19:53)
[2022-01-30] MEDS: cefTRIAXone IV Push 1 GM VIAL. IVP SCH (19:51)
[2022-01-30] MEDS: QUEtiapine 100 MG TABLET. PO SCH (20:35)
[2022-01-30] MEDS: traZODone 50 MG TABLET. PO SCH (20:35)
[2022-01-30] MEDS ORDERED: INSULIN GLARGINE SYRINGE. SQ SCH ×2 (21:00)
[2022-01-31 07:00] VITALS: BP 177/82
[2022-01-31] MEDS: APIXABAN 5 MG TABLET. PO SCH (08:03)
[2022-01-31] MEDS: TOPIRAMATE 25 MG TABLET. PO SCH (08:03)
[2022-01-31] MEDS: GABAPENTIN 400 MG CAPSULE. PO SCH ×2 (08:03→13:24)
[2022-01-31] MEDS: FENOFIBRATE,MICRONIZED 134 MG CAPSULE PO SCH (08:03)
[2022-01-31] MEDS: ASPIRIN ENTERIC COATED 81 MG TABLET.DR. PO SCH (08:04)
[2022-01-31] MEDS: DULoxetine HCL 30 MG CAPSULE.DR PO SCH (08:04)
[2022-01-31] MEDS: METOPROLOL TART IMMED RELEASE 25 MG TABLET. PO SCH (08:04)
[2022-01-31] MEDS: LACTOBACILLUS RHAMNOSUS GG 1 CAPSULE. PO SCH (08:04)
[2022-01-31] MEDS: PANTOPRAZOLE 40 MG TABLET.DR. PO SCH (08:04)
[2022-01-31] MEDS: INSULIN LISPRO 300 UNITS/3 ML VIAL. SQ SCH ×4 (08:05→12:06)
[2022-01-31] MEDS: FLUTICASONE 50MCG/NASAL SPRAY 16GM BOTTLE. NS SCH ×2 (08:06→08:58)
[2022-01-31] MEDS: POLYETHYLENE GLYCOL 3350 17 GM PACKET. PO SCH (08:57)
[2022-01-31 11:00] VITALS: BP 143/66
[2022-01-31] MEDS ORDERED: AMOX1TAB61 PO (11:13)
--- NOTE | 2022-01-31 12:44 | PDOC ---
[employer] PROGRESS NOTE Date of Service DOS: DATE: 01/31/22 TIME: 12:43 Chief Complaint Chief Complaint Hyperglycemic hyperosmolar state without ketosis Sepsis BIGG Paroxysmal A. fib Anxiety Asthma Diabetes Hyperlipidemia Hypertension Anemia Noncompliance History of Present Illness History of Present Illness 01/31/2022 Patient seen and examined She is doing well We will go ahead and discharge 01/30/2022 Patient seen and examined in the ICU She is doing much better this morning Discussed with RN Discussed with case management Will probably transfer out of the ICU today and hopefully get her home tomorrow Vitals/I&O Vitals/I&O: Vital Signs Date Time Temp Pulse Resp B/P (MAP) Pulse Ox O2 Delivery O2 Flow Rate FiO2 01/31/22 11:00 99.2 86 16 143/66 (91) 93 Room Air 99.2 01/30/22 07:34 3.0 I & O 01/30/22 01/30/22 01/31/22 15:00 23:00 07:00 Intake Total 500 ml 600 ml Balance 500 ml 600 ml Physical Exam General: Alert, Oriented X3, Cooperative, mild distress Lungs: Crackles Abdomen: Normal bowel sounds, Soft, No tenderness, No hepatosplenomegaly, No masses Extremities: No clubbing, No cyanosis, No edema, Normal pulses, No tenderness/swelling Skin: No rashes, No breakdown, No significant lesion Labs Labs: Laboratory Tests Test 01/30/22 15:11 01/30/22 17:39 01/30/22 20:42 01/31/22 07:40 Glucose (Fingerstick) 405 mg/dL (70-99) 456 mg/dL (70-99) 393 mg/dL (70-99) 322 mg/dL (70-99) Test 01/31/22 12:03 Glucose (Fingerstick) 239 mg/dL (70-99) Assessment and Plan Assessmemt and Plan Problems Medical Problems: (1) ARF (acute renal failure) Status: Acute (2) Hyperosmolar hyperglycemic state (HHS) Status: Acute Plan is discharge see dictation Comment Review of Relevant I have reviewed the following items emery (where applicable) has been applied. Medications: Current Medications Medications (Trade) Dose Ordered Sig/Mo Route PRN Reason Start Time Stop Time Status Last Admin Dose Admin Insulin Glargine (Lantus Syringe) 40 unit QHS SQ 01/30/22 21:00 01/30/22 20:39 Insulin Human Lispro (HumaLOG) 30 units TIDWMEALS SQ 01/30/22 19:15 01/31/22 12:06 Justifications for Admission Other Justification Acute respiratory failure with hypoxia, UTI, COVID-19 MEDHAT CARNES III DO January 31, 2022 12:44
--- NOTE | 2022-01-31 14:19 | NUR ---
Patient discharged at 1415. Patient alert and oriented, able to be educated about discharge medications and plan of care. Patient will follow up with PCP in a week. Medications sent to pharmacy.
--- NOTE | 2022-02-01 09:17 | DS ---
DATE OF DISCHARGE: 01/31/2022 ADMITTING DIAGNOSES: Hyperglycemic hyperosmolar state, sepsis and acute kidney injury. DISCHARGE DIAGNOSES: Resolving hyperglycemic hyperosmolar state, noncompliance, anxiety, acute kidney injury, sepsis, AFib, asthma, diabetes, hyperlipidemia, hypertension, anemia, and noncompliance. HOSPITAL COURSE: The patient is a pleasant middle-aged female well known to my service. Once again she presented with near DKA. She was hyperglycemic. She was hyperosmolar. She had an element of sepsis and an acute kidney injury. We gave her fluids and IV insulin. Today I saw her and examined. She is back to her baseline, wants to go home. We plan to discharge. DISPOSITION: Home. ACTIVITY: As tolerated. DIET: Low sodium. MEDICATIONS: Please see the MRAD. Other medications, we will put in Augmentin 875 p.o. b.i.d., and will continue her home medications. TOTAL TIME: 36 minutes. SOHA/ANNETTE DR: Renuka TID: [id number]
== END 2022-01-31 14:15 | disposition home or self-care (01) | DRG 871 ==
LOC: ER 15:15 → 1 WEST ICU 16:26
PROVIDERS: ADMIT Internal Medicine; ATTEND Internal Medicine
DX: A41.9 Sepsis, unspecified organism (principal); E11.00 Type 2 diabetes mellitus with hyperosmolarity without nonketotic hyperglycemic-hyperosmolar coma (NKHHC); N17.0 Acute kidney failure with tubular necrosis; N39.0 Urinary tract infection, site not specified; D63.8 Anemia in other chronic diseases classified elsewhere; E11.42 Type 2 diabetes mellitus with diabetic polyneuropathy; E78.00 Pure hypercholesterolemia, unspecified; E78.5 Hyperlipidemia, unspecified; F32.A Depression, unspecified; F41.9 Anxiety disorder, unspecified; G25.81 Restless legs syndrome; I10 Essential (primary) hypertension; I25.10 Atherosclerotic heart disease of native coronary artery without angina pectoris; I48.0 Paroxysmal atrial fibrillation; J44.9 Chronic obstructive pulmonary disease, unspecified; Z20.822 Contact with and (suspected) exposure to COVID-19; Z79.01 Long term (current) use of anticoagulants; Z85.41 Personal history of malignant neoplasm of cervix uteri; Z86.14 Personal history of Methicillin resistant Staphylococcus aureus infection; Z90.710 Acquired absence of both cervix and uterus; Z91.19 Patient's noncompliance with other medical treatment and regimen; E66.9 Obesity, unspecified; K21.9 Gastro-esophageal reflux disease without esophagitis; M19.90 Unspecified osteoarthritis, unspecified site
CPT/HCPCS: 36415; 80048; 80053; 81001; 82010; 82947; 82962; 83735; 85007; 85025; 87077; 87086; 87186; 93005; 96361; 96374; J0696; J1815; J3475; J3480; J7030; J7042; 99285-25; G0378